=== PATIENT | female | born 1990 | race Caucasian/White ===

== ENCOUNTER 2024-01-01 08:49 | Emergency (ER) | payer MEDICAID, SELFPAY ==
[2024-01-01 09:02] VITALS: BP 154/102; PULSE 63; O2SAT 95; BMI 32.8
--- NOTE | 2024-01-01 09:09 | ED.NAVMDI1 ---
HPI - Nausea/Vomiting/Diarrhea General Chief complaint: Nausea/Vomiting/Diarrhea Stated complaint: VOMITING Time Seen by Provider: 01/01/24 08:52 Source: patient Mode of arrival: Wheelchair Limitations: no limitations History of Present Illness HPI Narrative: 33-year-old female presents for nausea and vomiting. This has been going on for few days. She was admitted to another hospital, [facility], and was discharged yesterday and diagnosed with cannabis hyperemesis syndrome. She does not believe it is due to marijuana. LMP was early December. No complaints of abdominal pain or fever or hematemesis. Related Data Home Medications ?Medication ?Instructions ?Recorded ?Confirmed albuterol sulfate 90 mcg/actuation 2 puff inhalation Q6H PRN 01/01/24 01/01/24 aerosol inhaler shortness of breath or wheezing aspirin 81 mg chewable tablet 81 mg PO DAILY 01/01/24 01/01/24 atogepant 60 mg tablet (Qulipta) 60 mg PO DAILY 01/01/24 01/01/24 baclofen 10 mg tablet 10 mg PO Q8H 01/01/24 01/01/24 buspirone 30 mg tablet 30 mg PO BID 01/01/24 01/01/24 cariprazine 1.5 mg capsule 3 mg PO Q24H 01/01/24 01/01/24 (Vraylar) cyanocobalamin (vitamin B-12) 1,000 mcg PO DAILY 01/01/24 01/01/24 1,000 mcg tablet dicyclomine 20 mg tablet 20 mg PO DAILY 01/01/24 01/01/24 escitalopram oxalate 10 mg tablet 10 mg PO DAILY 01/01/24 01/01/24 famotidine 20 mg tablet 20 mg PO Q12H 01/01/24 01/01/24 fenofibrate 150 mg capsule 145 mg PO DAILY 01/01/24 01/01/24 ferrous sulfate 325 mg (65 mg 325 mg PO DAILY 01/01/24 01/01/24 iron) tablet (FeroSul) flash glucose sensor (FreeStyle 01/01/24 01/01/24 Otoniel 2 Sensor kit) fluticasone propionate 44 2 puff inhalation TID 01/01/24 01/01/24 mcg/actuation HFA aerosol inhaler gabapentin 600 mg tablet 600 mg PO QID 01/01/24 01/01/24 lamotrigine 100 mg tablet 100 mg PO DAILY 01/01/24 01/01/24 lidocaine 5 % topical patch 1 patch transdermal ONCE 01/01/24 01/01/24 magnesium oxide 400 mg (241.3 mg 400 mg PO DAILY 01/01/24 01/01/24 magnesium) tablet metoclopramide HCl 5 mg tablet 5 mg PO QID 01/01/24 01/01/24 montelukast 10 mg tablet 10 mg PO .QHS 01/01/24 01/01/24 multivitamin with folic acid 400 1 tab PO QAM 01/01/24 01/01/24 mcg tablet (Daily-Brigette (with folic acid)) omeprazole 40 mg capsule,delayed 40 mg PO BIDWM 01/01/24 01/01/24 release prochlorperazine maleate 10 mg 10 mg PO Q6H PRN N/V 01/01/24 01/01/24 tablet scopolamine base 1 mg over 3 days 1 patch transdermal Q3D 01/01/24 01/01/24 transdermal patch (Transderm-Scop) tamsulosin 0.4 mg capsule 0.4 mg PO QAM 01/01/24 01/01/24 tirzepatide 7.5 mg/0.5 mL 7.5 mg subcut QWEEK 01/01/24 01/01/24 subcutaneous pen injector (Drakeunkayliro) Allergies Allergy/AdvReac Type Severity Reaction Status Date / Time amoxicillin Allergy Mild Anaphylaxis Verified 01/01/24 09:11 ibuprofen AdvReac Mild Vomiting Verified 01/01/24 09:02 Review of Systems ROS Narrative A ten point review of systems is negative except as noted above. Exam Narrative Exam Narrative: Nurses note and vital signs reviewed and patient is not hypoxic. General: The patient appears well and in no apparent distress. Patient is resting comfortably on cart. Skin: Warm, dry, no pallor noted. There is no rash noted. Head: Normocephalic, atraumatic Eye: Normal conjunctiva, no drainage Ears, Nose, Mouth, and Throat: oral mucosa is moist. Nares patent. Cardiovascular: Regular Rate and Rhythm Respiratory: Patient is in no distress, no accessory muscle use, lungs are clear to auscultation, no wheezing, rales or rhonchi Back: non-tender GI: Soft and nontender Musculoskeletal: The patient has no evidence of calf tenderness, no pitting edema, symmetrical pulses noted bilaterally Neurological: A&O, normal speech Psychiatric: Cooperative Constitutional Vital Signs, click to edit/add: Last Vital Signs Pulse 63 01/01/24 09:02 Resp 18 01/01/24 09:02 BP 154/102 H 01/01/24 09:02 Pulse Ox 95 01/01/24 09:02 O2 Del Method Room Air 01/01/24 09:02 Course Vital Signs Vital signs: Vital Signs Pulse Rate 63 01/01/24 09:02 Respiratory Rate 18 01/01/24 09:02 Blood Pressure 154/102 H 01/01/24 09:02 Pulse Oximetry 95 01/01/24 09:02 Oxygen Delivery Method Room Air 01/01/24 09:02 Pulse Rate 63 01/01/24 09:02 Respiratory Rate 18 01/01/24 09:02 Blood Pressure 154/102 H 01/01/24 09:02 Pulse Oximetry 95 01/01/24 09:02 Oxygen Delivery Method Room Air 01/01/24 09:02 MDM - Nausea/Vomiting/Diarrhea MDM Narrative Medical decision making narrative: Tests were ordered and she was ordered IV fluids and Zofran. She walked out without completing her treatment. Differential Diagnosis Differential diagnosis: Likely food poisoning, gastroenteritis, dehydration and other (Cannabinoid hyperemesis syndrome) Lab Data Attestation: I reviewed the patient's lab results. Labs: Lab Results 01/01/24 Range/Units 09:15 WBC 7.1 (4.0-11.0) 10^3/uL RBC 4.28 (4.20-5.40) 10^6/uL Hgb 13.0 (12.0-16.0) g/dL Hct 38.8 (36.0-48.0) % MCV 90.7 (81.0-99.0) fL MCH 30.4 (26.7-34.0) pg MCHC 33.5 (29.9-35.2) g/dL RDW 12.5 (11.0-15.0) % Plt Count 434 (150-450) 10^3/uL MPV 9.5 (9.5-13.5) fL Neut % (Auto) 68.2 (43.0-75.0) % Lymph % (Auto) 24.2 (20.5-60.0) % [place] % (Auto) 6.5 (1.7-12.0) % Eos % (Auto) 0.4 L (0.9-7.0) % Baso % (Auto) 0.4 (0.2-2.0) % Neut # (Auto) 4.8 (1.4-6.5) 10^3/uL Lymph # (Auto) 1.7 (1.2-3.8) 10^3/uL [place] # (Auto) 0.5 (0.3-0.8) 10^3/uL Eos # (Auto) 0.0 (0.0-0.7) 10^3/uL Baso # (Auto) 0.0 (0.0-0.1) 10^3/uL Abs Immat Gran (auto) 0.02 (0.00-0.03) 10^3/uL Imm/Tot Granulo (auto) 0.3 (0.0-0.5) % Sodium 138 (136-145) mmol/L Potassium 3.5 (3.5-5.1) mmol/L Chloride 101 (98-107) mmol/L Carbon Dioxide 24.9 (21.0-32.0) mmol/L Anion Gap 15.6 BUN 12.0 (7.0-18.0) mg/dL Creatinine 0.84 (0.55-1.02) mg/dL Est GFR ( Amer) >60 (>=60) Est GFR (Non-Af Amer) >60 (>=60) BUN/Creatinine Ratio 14.3 Glucose 147 H (74-106) mg/dL Calcium 9.5 (8.5-10.1) mg/dL Serum HCG, Qual Negative (NEGATIVE) Discharge Plan Discharge Stand Alone Forms: Portal Instructions Chief Complaint: Nausea/Vomiting/Diarrhea Clinical Impression: Nausea & vomiting, Left against medical advice Patient Disposition: Left Against Medical Advice Time of Disposition Decision: 10:24 Condition: Good Mode of Transportation: Private Vehicle Prescriptions / Home Meds: No Action albuterol sulfate 90 mcg/actuation HFA aerosol inhaler 2 puff INHALATION Q6H PRN (Reason: shortness of breath or wheezing) aspirin 81 mg tablet,chewable 81 mg PO DAILY baclofen 10 mg tablet 10 mg PO Q8H buspirone 30 mg tablet 30 mg PO BID Vraylar 1.5 mg capsule 3 mg PO Q24H cyanocobalamin (vitamin B-12) 1,000 mcg tablet 1,000 mcg PO DAILY dicyclomine 20 mg tablet 20 mg PO DAILY escitalopram oxalate 10 mg tablet 10 mg PO DAILY famotidine 20 mg tablet 20 mg PO Q12H fenofibrate 150 mg capsule 145 mg PO DAILY ferrous sulfate [FeroSul] 325 mg (65 mg iron) tablet 325 mg PO DAILY fluticasone propionate 44 mcg/actuation HFA aerosol inhaler 2 puff INHALATION TID (DME) FreeStyle Otoniel 2 Sensor Kit See Rx Instructions .ROUTE Rx Instructions: As directed gabapentin 600 mg tablet 600 mg PO QID magnesium oxide 400 mg (241.3 mg magnesium) tablet 400 mg PO DAILY Rx Instructions: 1 tab/morning metoclopramide HCl 5 mg tablet 5 mg PO QID lidocaine 5 % adhesive patch,medicated 1 patch transdermal ONCE Rx Instructions: 1 PATCH TO AFFECTED AREA Q24 Hours montelukast 10 mg tablet 10 mg PO .QHS lamotrigine 100 mg tablet 100 mg PO DAILY Mounjaro 7.5 mg/0.5 mL pen injector 7.5 mg subcut QWEEK omeprazole 40 mg capsule,delayed release(DR/EC) 40 mg PO BIDWM multivitamin with folic acid [Daily-Brigette (with folic acid)] 400 mcg tablet 1 tab PO QAM prochlorperazine maleate 10 mg tablet 10 mg PO Q6H PRN (Reason: N/V) Qulipta 60 mg tablet 60 mg PO DAILY scopolamine base [Transderm-Scop] 1 mg over 3 days patch 3 day 1 patch transdermal Q3D tamsulosin 0.4 mg capsule 0.4 mg PO QAM Print Language: Chinese Instructions: Acute Nausea and Vomiting (ED), Against Medical Advice (ED) Referrals: NAWAF MCKOY [Primary Care Provider] - 1 week
[2024-01-01 09:26] LABS: Basophils Percent Auto 0.4 % (0.2-2.0); Eosinophils Percent Auto 0.4 % (0.9-7.0); Hematocrit 38.8 % (36.0-48.0); Immature Granulocytes Abs Auto 0.02 10^3/uL (0.00-0.03); Immature Granulocytes Pct Auto 0.3 % (0.0-0.5); Lymphocytes Absolute Auto 1.7 10^3/uL (1.2-3.8); Lymphocytes Percent Auto 24.2 % (20.5-60.0); Mean Corpuscular HGB Conc 33.5 g/dL (29.9-35.2); Mean Corpuscular Hemoglobin 30.4 pg (26.7-34.0); Mean Corpuscular Volume 90.7 fL (81.0-99.0); Mean Platelet Volume 9.5 fL (9.5-13.5); Monocytes Absolute Auto 0.5 10^3/uL (0.3-0.8); Monocytes Percent Auto 6.5 % (1.7-12.0); Neutrophils Absolute Auto 4.8 10^3/uL (1.4-6.5); Neutrophils Percent Auto 68.2 % (43.0-75.0); Platelet Count 434 10^3/uL (150-450); Red Blood Count 4.28 10^6/uL (4.20-5.40); Red Cell Distribution Width 12.5 % (11.0-15.0); White Blood Count 7.1 10^3/uL (4.0-11.0)
[2024-01-01] MEDS: 0.9 % SODIUM CHLORIDE 1,000 ML 1000 ML IV (09:26)
[2024-01-01] MEDS: METOCLOPRAMIDE HCL 10 MG/2 ML VIAL IVP (09:27)
[2024-01-01] MEDS: ONDANSETRON PF 4 MG/2 ML VIAL IV (09:27)
[2024-01-01 09:37] LABS: Anion Gap 15.6; BUN Creatinine Ratio 14.3; Calcium 9.5 mg/dL (8.5-10.1); Carbon Dioxide 24.9 mmol/L (21.0-32.0); Chloride 101 mmol/L (98-107); Estimated GFR (African America >60 (>=60); Estimated GFR (Non-African Ame >60 (>=60); Glucose 147 mg/dL (74-106); Potassium 3.5 mmol/L (3.5-5.1); Sodium 138 mmol/L (136-145)
[2024-01-01 09:38] LABS: HCG Qualitative NEGATIVE (NEGATIVE); Internal Control Within Normal Limits
== END 2024-01-01 10:20 | disposition left against medical advice (07) ==
PROVIDERS: Emergency Provider Emergency Medicine
DX: R11.2 Nausea with vomiting, unspecified (principal); Z53.29 Procedure and treatment not carried out because of patient's decision for other reasons
CPT/HCPCS: 36415; 80048; 81001; 84703; 85025; 96361; 96374; 96375; 99284; J2405; J2765

== ENCOUNTER 2024-01-05 13:05 | Observation (INO) | payer MEDICAID, SELFPAY ==
[2024-01-05] VITALS (12 sets, daily range): BP systolic 140–159; BP diastolic 90–110; PULSE 75–111; TEMP 36.7–37.2; O2SAT 96–99; BMI 32.8; BMI 46.7
--- OUTSIDE RECORDS SUMMARY | 2024-01-05 13:14 | XMS_ITS | CCD ---
Author Organization [facility] Care Team Providers Care Tea Taster Name Role Phone ANNABELLE CLAIRE (PA) Unavailable Unavailable ANNABELLE CLAIRE (PA) Unavailable Unavailable KUENZLER MINNIE M Unavailable Unavailable ANNABELLE CLAIRE (PA) Unavailable Unavailable KUENZLER MINNIE M Unavailable Unavailable KUENZLER MINNIE M Unavailable Unavailable KUENZLER MINNIE M Unavailable Unavailable KUENZLER MINNIE M Unavailable Unavailable KUENZLER, MINNIE M Unavailable Unavailable EAN, NAWAF Primary Care Physician Saroj Nguyen Unavailable Te Shelton Unavailable Dereck Dempsey Unavailable ANGESME, NAWAF Primary Care Unavailable LYNDA, DR MEEKS Admitting Unavailable LYNDA, DR MEEKS Attending Unavailable LYNDA, DR MEEKS Consulting Unavailable EAN, NAWAF Primary Care Unavailable LYNDA, DR MEEKS Admitting Unavailable LYNDA, DR MEEKS Attending Unavailable ZIDANNA, DR MARILIA Payton Consulting Unavailable LYNDA, DR MEEKS Attending Unavailable ANGESME, NAWAF Primary Care Unavailable LYNDA, DR MEEKS Consulting Unavailable LYNDA, DR MEEKS Admitting Unavailable NARCISO, DR MARILIA Payton Consulting Unavailable ROSI, DR JENSEN Hale Attending Unavailabl lashonda ARANDA, DR JENSEN Hale Consulting Unavailabl e EAN, NAWAF Primary Care Unavailable ROSI, DR JENSEN Hale Admitting Unavailabl YANETH Perea Consulting Unavailable Lola Trevino Unavailable Unavailable Primary Care Provider UnavailAysha Trujillo CNP Attending Unavailable CARLITA RECINOS Primary Care Unavailable CARLITA SEGURA Attending Unavailable KAREN SPAULDING Attending Unavailable NO, PCP Primary Care Unavailable NO, PCP Primary Care Unavailable OMER ROBISON Attending Unavailable MD Constantino HOWELL Attending Unavailable MD Constantino HOWELL Attending Unavailable MD Constantino HOWELL Referring Unavailable MD Constantino HOWELL Attending Unavailable MD Constantino HOWELL Admitting Unavailable AnglimDILIA Primary Care Provider Willamcortez, [facility]- Cristel Ramírez Emergency Provider LUIS Hill Attending Provider Pratima Hill Unavailable Leatha Nicole Unavailable Jone Greenfield Unavailable DILIA Mckoy Primary Care Provider [phone] LUIS Hill Attending Provider DO Rainer Barrera Attending Provider NON STAFF Primary Care Provider UnavailRainer Rice Unavailable Furlong King CANTU Primary Care Provider Anglim, Nawaf Primary Care Unavailable Pratima Hill Attending Unavailable Pratima Hill Admitting Unavailable Anglim, Nawaf Primary Care Unavailable Pratima Hill Attending Unavailable Pratima Hill Admitting Unavailable Rainer Barrera Attending Unavailable Rainer Barrera Admitting Unavailable Anglim, Nawaf Primary Care Unavailable NON STAFF Primary Care Unavailable Rainer Barrera Attending Unavailable Rainer Barrera Admitting Unavailable FURLONGKING Referring Unavailable FURLONG, KING G Primary Care Unavailable FURLONG, KING Hale Referring Unavailable FURLONG, KING G Primary Care Unavailable ALMADANI, S. BASHAR Admitting Unavailable ALMADANI, S. BASHAR Attending Unavailable FURLONG, KING G Primary Care Unavailable JOAQUIN MURRAY Attending Unavailable FURLONG, KING G Primary Care Unavailable ALMADANI, S. BASHAR Attending Unavailable ALMADANI, S. BASHAR Referring Unavailable FURLONG, KING G Primary Care Unavailable ALMADANI, S. BASHAR Attending Unavailable ALMADANI, S. BASHAR Referring Unavailable FURLONG, KING G Primary Care Unavailable FURLONG, KING G Attending Unavailable FURLONG, KING G Referring Unavailable FURLONG, KING G Primary Care Unavailable FIORELLA SUMNER Attending Unavailable FURLONG, KING G Primary Care Unavailable RUBLAITUS, TIFFANIE Attending Unavailable FURLONG, KING G Referring Unavailable FURLONG, KING G Primary Care Unavailable TANIADAVE MARTINEZ Attending Unavailable FURLONG, KING G Referring Unavailable FURLONG, KING G Primary Care Unavailable RUBLAITUS, TIFFANIE Attending Unavailable FURLONG, KING G Referring Unavailable FURLONG, KING G Primary Care Unavailable TANIADAVE Attending Unavailable FURLONG, KING G Referring Unavailable FURLONG, KING G Primary Care Unavailable FURLONG, KING G Attending Unavailable FURLONG, KING G Referring Unavailable FURLONG, KING G Primary Care Unavailable ABBY BERG Attending Unavailable FURLONG, KING G Primary Care Unavailable MURFIORELLA CHIN Referring Unavailable FURLONG, KING G Primary Care Unavailable FURLONG, KING G Attending Unavailable FURLONG, KING G Referring Unavailable FURLONG, KING G Primary Care Unavailable RUSHER, JESU S Referring Unavailable RUSHER, JESU S Attending Unavailable RUSHER, JESU S Referring Unavailable RUSHER, JESU S Attending Unavailable HAYDEN KIRKPATRICK Attending Unavailable KIRKPATRICKHAYDEN AHUMADA Referring Unavailable KIRKPATRICK, HAYDEN Scott Attending Unavailable KIRKPATRICKHAYDEN Referring Unavailable NATALI ALEXANDRA Attending Unavailable RUSHER, JESU S Attending Unavailable RUSHER, JESU S Referring Unavailable FURLONG, KING G Primary Care Unavailable RUSHER, JESU S Referring Unavailable FURLONG, KING G Primary Care Unavailable RUBLAITUS, TIFFANIE Referring Unavailable FURLONG, KING G Primary Care Unavailable FURLONG, KING G Referring Unavailable FURLONG, KING G Primary Care Unavailable RUBLAITUS, TIFFANIE Referring Unavailable FURLONG, KING G Primary Care Unavailable FURLONG, KING G Referring Unavailable FURLONG, KING G Primary Care Unavailable FURLONG, KING G Primary Care Unavailable SUE SMITH Attending Unavailable SIMON MARIN Admitting Unavailable LATOSHA NICHOLAS Attending Unavailable LATOSHA NICHOLAS Referring Unavailable FURLONG, KING G Primary Care Unavailable FIORELLA SUMNER Referring Unavailable FURLONG, KING G Primary Care Unavailable FURLONG, KING G Primary Care Unavailable CIARA, EHLADAN Attending Unavailable FURLONG, KING G Referring Unavailable FURLONG, KING G Primary Care Unavailable JESU LEWIS Attending Unavailable FURLONG, KING G Referring Unavailable FURLONG, KING G Primary Care Unavailable FURLONG, KING G Primary Care Unavailable NATALI PACE Attending Unavailable GEORGIA EASTON Admitting Unavailable NATALI PACE Attending Unavailable NATALI PACE Referring Unavailable FURLONG, KING G Primary Care Unavailable FURLONG, KING G Primary Care Unavailable OLAYINKA HICKS Attending Unavailable FURLONG, KING G Primary Care Unavailable SUE SMITH Attending Unavailable MURNEN, FIORELLA Suero Attending Unavailable MURNEN, FIORELLA Suero Referring Unavailable FURLONG, KING G Primary Care Unavailable MURNEN, FIORELLA Suero Attending Unavailable MURNEN, FIORELLA A Referring Unavailable FURLONG, KING G Primary Care Unavailable MURNEN, FIORELLA Suero Attending Unavailable MURNEN, FIORELLA A Referring Unavailable FURLONG, KING G Primary Care Unavailable FURLONG, KING G Primary Care Unavailable OLAYINKA HICKS Attending Unavailable MANDO, LATOSHA Attending Unavailable LATOSHA NICHOLAS Referring Unavailable FURLONG, KING G Primary Care Unavailable FURLONG, KING G Primary Care Unavailable OLAYINKA HICKS Attending Unavailable SALOME BRADY Admitting Unavailable OLAYINKA HICKS Attending Unavailable OLAYINKA HICKS Referring Unavailable FURLONG, KING G Primary Care Unavailable Allergies Allergy Classification Reported Allergen(s) Allergy Type Date of Onset Reaction(s) Facility (20 sources) acetaminophen / HYDROcodone; Translations: [HYDROCODONE-ACET AMINOPHEN] Drug Allergy 07-27-19 16 Hives [facility] Repository (20 sources) amoxicillin; Translations: [AMOXICILLIN] Drug Allergy 11-17-19 13 Allergy - specialty (qualifier value), anaphylaxis [facility] Repository (20 sources) cefadroxil; Translations: [CEFADROXIL] Drug Allergy 10-13-19 17 AOF, Unknown, Unknown Reaction [facility] Repository (20 sources) calderón allergenic extract; Translations: [CALDERÓN] Drug Allergy 06-09-19 17 Anaphylaxis (disorder), Anaphylaxis [facility] Repository (1 source) HYDROmorphone; Translations: [HYDROMORPHONE (BULK)] Drug Allergy 03-15-20 17 AOF [facility] Repository (20 sources) ibuprofen; Translations: [IBUPROFEN] Drug Allergy 07-27-19 16 Vomiting (disorder), Hives, Vomiting [facility] Repository (20 sources) NSAIDs; Translations: [NSAIDS (NON-STEROIDAL ANTI-INFLAMMATORY DRUG)] Propensity to adverse reactions to drug (disorder) 10-13-19 17 AOF [facility] Repository (20 sources) Penicillins; Translations: [PENICILLINS] Propensity to adverse reactions to drug (disorder) 07-27-19 16 Weal (disorder), Anaphylaxis [facility] Repository (20 sources) strawberry allergenic extract; Translations: [STRAWBERRY] Drug Allergy 05-21-19 07 [facility] Repository (20 sources) PINK DYE; Translations: [PINK DYE] Propensity to adverse reactions to drug (disorder) 03-13-[address] [facility] Repository (5 sources) Acetaminophen / HYDROcodone; Translations: [acetaminophen-hy drocodone] Drug Allergy 03-15-20 17 Weal (disorder) [facility] (10 sources) HYDROcodone; Translations: [hydrocodone] Drug Allergy 06-03-19 20 Unknown, Hives, Unknown Reaction [facility] (20 sources) HYDROmorphone; Translations: [hydromorphone] Drug Allergy 07-27-19 16 [facility] [employer] Other (3 sources) NSAIDs; Translations: [NSAIDs] Drug allergy Weal (disorder) [facility] (3 sources) [place]; Translations: [Strawberries] Drug allergy Weal (disorder) [facility] (20 sources) Verapamil; Translations: [verapamil] Drug Allergy 11-09-19 19 shortness of breath, Dizziness [facility] [employer] Other (20 sources) Acetaminophen / HYDROcodone; Translations: [Vicodin] Drug Allergy 11-17-19 14 [facility] Repository (20 sources) pink dye in vicodin Propensity to adverse reactions 06-06-19 24 [facility] (20 sources) cherries Propensity to adverse reactions 06-06-19 24 Unknown [facility] (3 sources) HYDROmorphone; Translations: [Dilaudid] Drug Allergy 03-05-20 15 [facility] Repository (1 source) Ibuprofen Drug Allergy 11-17-19 13 [facility] Repository (1 source) Verapamil Drug Allergy [facility] Repository (1 source) Darvocet-N 100 Drug allergy (disorder) [facility] Repository (1 source) Calderón Cough Drops Drug allergy (disorder) 05-21-19 07 [facility] Repository (2 sources) Acetaminophen; Translations: [acetaminophen] Drug Allergy 06-03-19 [facility] Repository (7 sources) peanut allergenic extract Drug Allergy 07-05-[address] [facility] (7 sources) NSAIDS (Non-Steroidal Anti-Inflamma Allergy to substance 07-05-19 [facility] (7 sources) [place] Allergy to substance 07-05-[address] [facility] Medications Current Medications Medication Drug Class(es) Dates Sig (Normalized) Sig (Original) 0.5 ML tirzepatide 10 MG/ML Auto-Injector [Mounjaro] (1 source) Start: 03-27-2023 Mounjaro 5 MG/0.5ML as directed Subcutaneous Once weekly for 28 days Mar, Active acetaminophen 325 mg / oxyCODONE hydrochloride 5 mg oral tablet (13 sources) Opioid Agonist Start: 09-08-2022 take 1 tablet by mouth every six hours Oxycodone-Acetamino phen Active 1 TAB PO Q6H 8 September 08, 2022 Start: 04-22-2021 End: 05-25-2021 take 1 tablet by mouth every six hours Oxycodone-Acetaminophen (Percocet) 5-325 mg tablet Discontinued 1 TAB PO Q6H 8 April 22, 2021 May 25, 2021 10:35am Albuterol (Eqv-ProAir HFA) 90 mcg/inh inhalation aerosol (2 sources) Start: 07-15-2020 take 2 puff(s) by inhalation every four hours as needed for wheezing Albuterol (Eqv-ProAir HFA) 90 mcg/inh inhalation aerosol 2 puff(s), Inhalation, q4hr as needed for wheezing, Refill(s) 0 Start Date: 07/15/20 Status: Ordered ascorbic acid 250 mg oral tablet (20 sources) Vitamin C Start: 07-15-2020 take 1 tablet by mouth twice daily Vitamin C 250 mg oral tablet 250 mg = 1 tab(s), Oral, BID, Refills(s) 0 Start Date: 07/15/20 Status: Ordered Start: 05-10-2020 Ascorbic Acid (Vitamin C) (Vitamin C) 500 mg Tablet Active 250 MG PO Twice daily May 10, 2020 1:00am Start: 04-16-2020 End: 05-10-2020 take 1 tablet by mouth twice daily Ascorbic Acid (Vitamin C) (Vitamin C) 250 mg Tablet Discontinued 250 MG PO Twice daily April 16, 2020 1:00am May 10, 2020 11:06am take 1 tablet by elvira every twenty-four hours Vitamin C 250 MG 1 tablet Orally Once a day Active benzonatate (3 sources) Non-narcotic Antitussive Start: 11-24-2020 Start: 11-24-2020 take 1 capsule by mo [facility] three times daily as needed Tessalon Perles 100 MG 1 capsule as needed Orally Three times a day for 7 days Nov, Active brompheniramine maleate 0.4 mg/ml / dextromethorphan hydrobromide 2 mg/ml / pseudoephedrine hydrochloride 6 mg/ml oral solution (5 sources) alpha-Adrenergic Agonist, Uncompetitive O-ehtqui-Y-aspartate Receptor Antagonist, Sigma-1 Agonist Start: 08-15-2022 take 10 mL by mouth every six hours Cqrcdixeg-Xtqgxfwv-BM 30-2-10 MG/5ML 10 mL Orally every 6 hours for 5 days Jul, Active Start: 08-15-2022 ciprofloxacin 500 mg oral tablet (1 source) Quinolone Antimicrobial Start: 06-26-2023 End: 07-03-2023 take 1 tablet by mouth in the morning, then take 1 tablet by mouth at bedtime ciprofloxacin HCl (CIPRO) 500 mg tablet Take 1 tablet (500 mg total) by mouth in the morning and 1 tablet (500 mg total) before bedtime. Do all this for 7 days. 14 tablet 0 06/26/2023 07/03/2023 Active clindamycin 10 mg/ml topical lotion (7 sources) Lincosamide Antibacterial Start: 05-09-2023 clindamycin (CLEOCIN T) 1 % lotion dexamethasone 1 mg/ml / neomycin 3.5 mg/ml / polymyxin b [id number] unt/ml ophthalmic suspension (7 sources) Aminoglycoside Antibacterial, Polymyxin-class Antibacterial, Corticosteroid Start: 05-26-2021 take 1 drop(s) into the eye(s) four times daily Neomycin-Polymyxin B-Dexameth Active 1 DROPS EYE-LEFT Four times daily May 26, 2021 1:00am trulicity 3 mg/0.5ml solution pen-injector (3 sources) GLP-1 Receptor Agonist Trulicity 3 MG/0.5ML 3 mg subcutaneous injection once weekly Subcutaneous Once a week for 30 days Active fenofibrate 145 mg oral tablet (20 sources) Peroxisome Proliferator Receptor alpha Agonist Start: 05-28-2021 take 145 mg by mouth once daily Fenofibrate Nanocrystallized Active 145 MG PO Daily May 28, 2021 1:00am flash glucose sensor (FREESTYLE MAKSIM 2 SENSOR) kit (17 sources) Start: 06-08-2023 flash glucose sensor (FREESTYLE MAKSIM 2 SENSOR) kit Indications: Type 2 diabetes mellitus with diabetic polyneuropathy, with long-term current use of insulin ([facility]) 1 Unit by miscellaneous route every 14 (fourteen) days. 2 kit 5 06/08/2023 Suspended Start: 06-08-2023 flash glucose sensor (FREESTYLE MAKSIM 2 SENSOR) kit Indications: Type 2 diabetes mellitus with diabetic polyneuropathy, with long-term current use of insulin ([facility]) 1 Unit by miscellaneous route every 14 (fourteen) days. 2 kit 5 06/08/2023 Active FreeStyle Maksim 2 Triplett - (14 sources) Start: 01-18-2022 FreeStyle Libr e 2 Triplett - 1 device daily for 365 days Dec, Active FreeStyle Maksim 2 Triplett - USE TO TEST BLOOD SUGAR DAILY for 30 Not-Taking/PRN FreeStyle Maksim 2 Triplett - USE TO TEST BLOOD SUGAR DAILY for 30 Not-Taking FreeStyle Maksim 2 Triplett - USE TO TEST BLOOD SUGAR DAILY for 30 Active linagliptin 5 mg oral tablet (9 sources) Dipeptidyl Peptidase 4 Inhibitor Start: 05-28-2021 take 1 tablet by mouth once daily at breakfast Linagliptin (Tradjenta) 5 mg Tablet Active 5 MG PO Daily with breakfast May 28, 2021 1:00am 3 ml liraglutide 6 mg/ml pen injector (10 sources) GLP-1 Receptor Agonist inject 1.8 mg by subcutaneous injection once daily Victoza 18 MG/3ML 1.8 mg SQ daily for 28 days Active methocarbamol 750 mg oral tablet (2 sources) Muscle Relaxant Start: 04-20-2021 take 1 mg by mouth three times daily methocarbamol 750 mg Tab mg tab(s), Oral, TID, Refills(s) 0 Start Date: 04/20/21 Status: Ordered metroNIDAZOLE 500 mg oral tablet (1 source) Nitroimidazole Antimicrobial Start: 06-26-2023 End: 07-03-2023 take 1 tablet by mouth in the morning, then take 1 tablet by mouth at bedtime metroNIDAZOLE (FLAGYL) 500 mg tablet Take 1 tablet (500 mg total) by mouth in the morning and 1 tablet (500 mg total) before bedtime. Do all this for 7 days. 14 tablet 0 06/26/2023 07/03/2023 Active mirtazapine 7.5 mg oral tablet (11 sources) take 1 tablet by mouth every twenty-four hours Mirtazapine 7.5 MG 1 tablet at bedtime Orally Once a day Active mometasone furoate 0.05 mg/actuat metered dose nasal spray (1 source) Corticosteroid Start: 07-15-2020 Nasonex 50 mcg/inh Wiley = 2 spray(s), Nasal, Daily, PRN for allergy symptoms, # 17 gram, Refills(s) 0 Start Date: 07/15/20 Status: Ordered mounjaro 5 mg/0.5ml solution pen-injector (2 sources) inject 5 mg by subcutaneous injection every week Mounjaro 5 MG/0.5ML 5 mg Subcutaneous Once weekly for 28 days Active Mounjaro 5 MG/0. 5ML as directed Subcutaneous Once weekly for 28 days Active Multivitamin preparation (4 sources) take 1 tablet by mouth once daily Multivitamin - 1 tablet Orally Once a day Active Nasonex 50 mcg/inh Wiley (1 source) Start: Nasonex 50 mcg/inh Wiley = 2 spray(s), Nasal, Daily, PRN for allergy symptoms, # 17 gram, Refills(s) 0 Start Date: 07/15/20 Status: Ordered nitrofurantoin, macrocrystals 25 mg / nitrofurantoin, monohydrate 75 mg oral capsule (7 sources) Nitrofuran Antibacterial Start: take 1 capsule by mouth twice daily at mealtime Nitrofurantoin Monohyd/M-Cryst (Macrobid) 100 mg capsule Active 100 MG PO Twice daily 14 July 05, 2021 1:00am must administer with a meal/food [place]-3 1000 mg oral capsule (2 sources) Start: take 1 capsule by mouth once daily [place]-3 1000 mg oral capsule mg cap(s), Oral, Daily, Refills(s) 0 Start Date: 04/20/21 Status: Ordered microencapsulated potassium chloride 20 meq extended release oral tablet (1 source) Start: End: take 1 tablet by mouth in the morning potassium chloride (KLOR-CON M 20) 20 MEQ CR tablet Take 1 tablet (20 mEq total) by mouth in the morning for 7 days. 7 tablet 0 06/26/2023 07/03/2023 Active rOPINIRole 0.5 mg oral tablet (20 sources) Nonergot Dopamine Agonist Start: take 0.5 mg by mouth once daily at bedtime Ropinirole Active 0.5 MG PO Daily at bedtime May 28, 2021 1:00am 0.25 mg, 0.5 mg dose 1.5 ml semaglutide 1.34 mg/ml pen injector (1 source) Start: Ozempic (0.25 or 0.5 MG/DOSE) 2 MG/1.5ML 0.25 mg for one month and then increase to 0.5 mg dose Subcutaneous weekly for 30 days Nov, Active sulfamethoxazole 800 mg / trimethoprim 160 mg oral tablet (8 sources) Dihydrofolate Reductase Inhibitor Antibacterial, Sulfonamide Antimicrobial Start: End: take 1 tablet by mouth twice daily sulfamethoxazole-tri methoprim (BACTRIM DS) 800-160 MG per tablet Take 1 tablet by mouth 2 times daily for 7 days 14 tablet 0 03/14/2022 03/21/2022 Active Start: 10-01-2019 End: 04-16-2020 take 1 tablet by mouth twice daily Sulfamethoxazole-Trimethoprim Discontinu ed 1 TAB PO Twice daily 14 October 01, 2019 12:00am April 16, 2020 6:07pm tamsulosin hydrochloride 0.4 mg oral capsule (20 sources) alpha-Adrenergic Lashonda Start: 05-10-2020 take 0.4 mg by mouth once daily Tamsulosin Active 0.4 MG PO Daily May 10, 2020 1:00am tirzepatide (MOUNJARO) 7.5 mg/0.5 mL pen injector (6 sources) Start: 07-24-2023 tirzepatide (MOUNJARO) 7.5 mg/0.5 mL pen injector Indications: Type 2 diabetes mellitus with diabetic polyneuropathy, with long-term current use of insulin ([facility]) Inject 7.5 mg under the skin every 7 days. 2 mL 1 07/24/2023 Suspended Start: 07-24-2023 tirzepatide (M OUNJARO) 7.5 mg/0.5 mL pen injector Indications: Type 2 diabetes mellitus with diabetic polyneuropathy, with long-term current use of insulin ([facility]) Inject 7.5 mg under the skin every 7 days. 2 mL 1 07/24/2023 Active traMADol hydrochloride 50 mg oral tablet (9 sources) Opioid Agonist Start: 07-05-2021 take 50 mg by mouth twice daily Tramadol Active 50 MG PO Twice daily 6 July 05, 2021 1:00am Start: 04-27-2021 Start: 04-27-2021 take 1 tablet by elvira th every four to six hours as needed traMADol HCl 50 MG 1 tablet as needed Orally q4-6h for 10 days Apr, Active traZODone hydrochloride 50 mg oral tablet (20 sources) Serotonin Reuptake Inhibitor Start: 05-28-2021 take 50 mg by mouth once daily at bedtime Trazodone Active 50 MG PO Daily at bedtime May 28, 2021 1:00am valACYclovir 1000 mg oral tablet (4 sources) Herpesvirus Nucleoside Analog DNA Polymerase Inhibitor, Herpes Simplex Virus Nucleoside Analog DNA Polymerase Inhibitor, Herpes Zoster Virus Nucleoside Analog DNA Polymerase Inhibitor Start: 10-18-2022 take 1 tablet by mouth every eight hours valACYclovir HCl 1 GM 1 tablet Orally tid for 7 days September, Active Vitamin B-12 ER 1000 MCG (13 sources) take 1 tablet by mouth once marta y Vitamin B-12 ER 1000 MCG 1 tablet Orally Once a day Active Vitamin B12 1000 mcg Tab (2 sources) Start: 07-15-2020 take 1 ug by mouth once daily Vitamin B12 1000 mcg Tab mcg tab(s), Oral, Daily, Refills(s) 0 Start Date: 07/15/20 Status: Ordered Vitamin C 250 MG (5 sources) take 1 tablet by mouth once marta y Vitamin C 250 MG 1 tablet Orally Once a day Active Vitamin C 250 mg oral tablet (1 source) Start: 07-15-2020 take 1 tablet by mouth twice daily Vitamin C 250 mg oral tablet 250 mg = 1 tab(s), Oral, BID, Refills(s) 0 Start Date: 07/15/20 Status: Ordered Completed/Discontinued Medications Medication Drug Class(es) Dates Sig (Normalized) Sig (Original) acetaminophen 500 mg oral tablet (20 sources) Start: 01-06-2023 End: 06-19-2023 take 1 tablet by mouth every six hours as needed for pain acetaminophen (TYLENOL EXTRA STRENGTH) 500 mg tablet Take 1 tablet (500 mg total) by mouth every 6 (six) hours as needed for pain. 60 tablet 3 06/19/2023 Suspended Start: 03-14-2022 acetaminophen (TYLENOL) tablet 650 mg Start: 05-25-2021 take 500 mg by mouth three times daily Acetaminophen Active 500 MG PO Three times daily May 25, 2021 10:34am Start: 07-15-2020 take 1 tablet by elvira th every six hours as needed for pain acetaminophen (TYLENOL) 500 MG tablet Take 1 tablet by mouth every 6 hours as needed for Pain 40 tablet 0 03/05/2022 Active Start: 05-10-2020 End: 05-25-2021 take 500 mg by mouth every four hours Acetaminophen Discontinued 500 MG PO Every 4 hours May 10, 2020 1:00am May 25, 2021 10:34am Start: 04-23-2020 End: 05-10-2020 take 650 mg by mouth every four hours Acetaminophen Discontinued 650 MG PO Q4H April 23, 2020 1:00am May 10, 2020 11:06am Start: 10-01-2019 End: 04-23-2020 take 500 mg by mouth every four hours Acetaminophen Discontinued 500 MG PO Q4H 180 30 October 01, 2019 12:00am April 23, 2020 4:58pm Start: 09-23-2019 End: 10-01-2019 take 1000 mg by mouth every eight hours Acetaminophen Discontinued 1000 MG PO Every 8 hours September 23, 2019 12:00am October 01, 2019 12:17pm take 1 capsule by [facility] every eight hours Acetaminophen 500 MG 1 capsule Orally tid Active take 1 tablet by elvira every four hours Tylenol 325 MG 1 tablet as needed Orally every 4 hrs Not-Taking take 1 capsule by mo [facility] every six hours Acetaminophen 500 MG 1 capsule as needed Orally every 6 hrs Active [id number] actuat albuterol 0.09 mg/actuat metered dose inhaler (20 sources) beta2-Adrenergic Agonist Start: 06-18-2023 take 2 puff(s) by inhalation every six hours as needed for wheezing albuterol (PROVENTIL HFA;VENTOLIN HFA) 90 mcg/actuation inhaler Indications: Asthma, unspecified asthma severity, unspecified whether complicated, unspecified whether persistent Inhale 2 puffs every 6 (six) hours as needed for wheezing. 18 g 1 06/18/2023 Suspended Start: 11-24-2020 take 2 puff(s) by in halation every four to six hours as needed Albuterol Sulfate HFA 108 (90 Base) MCG/ACT 2 puffs as needed Inhalation every 4-6 hours for 14 days Nov, Active Start: 11-24-2020 take 2 puff(s) by in halation every four to six hours as needed Albuterol Sulfate HFA 108 (90 Base) MCG/ACT 2 puffs as needed Inhalation every 4-6 hours for 14 days Nov, Active Start: 11-24-2020 take 2 puff(s) by in halation every four to six hours as needed Albuterol Sulfate HFA 108 (90 Base) MCG/ACT 2 puffs as needed Inhalation every 4-6 hours for 14 days Nov, Active Start: 11-24-2020 Start: 08-31-2020 take 2.5 mg by inhal ation every six hours for wheezing albuterol 0.083% Inh Marjan 3 mL 2.5 mg, 3 mL, Inhalation, q6hr for wheezing, Refill(s) 0 Start Date: 08/31/20 Status: Ordered Start: 08-31-2020 take 2.5 mg by inhal ation every six hours for wheezing albuterol 0.083% Inh Marjan 3 mL 2.5 mg, 3 mL, Inhalation, q6hr for wheezing, Refill(s) 0 Start Date: 08/31/20 Status: Ordered Start: 04-18-2017 End: 05-10-2020 Albuterol Sulfate (Proair Hf a) 90 mcg/actuation Hfa Aerosol Inhaler Discontinued 2 INH INHALATION Every 4 hours 30 October 01, 2019 12:14pm May 10, 2020 11:06am take 2 puff(s) by in halation every six hours as needed for wheezing albuterol (PROVENTIL HFA;VENTOLIN HFA) 90 mcg/actuation inhaler Inhale 2 puffs every 6 (six) hours as needed for wheezing. 0 Active Albuterol Sulfat e Active ARIPiprazole 2 mg oral tablet (4 sources) Atypical Antipsychotic Start: 08-20-2023 take 1 tablet by mouth in the morning ARIPiprazole (ABILIFY) 2 mg tablet Take 1 tablet (2 mg total) by mouth in the morning. 30 tablet 0 08/20/2023 Suspended Start: 07-31-2023 End: 08-08-2023 take 1 tablet by mouth in the morning ARIPiprazole (ABILIFY) 2 mg tablet Take 1 tablet (2 mg total) by mouth in the morning. 30 tablet 2 07/31/2023 08/08/2023 Discontinued (Therapy completed) aspirin 81 mg chewable tablet (18 sources) Platelet Aggregation Inhibitor, Nonsteroidal Anti-inflammatory Drug Start: 04-27-2021 aspirin 81 mg chewable tablet Chew 1 tablet (81 mg total) and swallow daily. 20 tablet 0 04/27/2021 Suspended baclofen 10 mg oral tablet (20 sources) gamma-Aminobutyric Acid-ergic Agonist Start: 12-13-2021 take 1 tablet by mouth three times daily baclofen (LIORESAL) 10 mg tablet Indications: Fibromyalgia Take 1 tablet (10 mg total) by mouth 3 (three) times a day. 90 tablet 2 06/18/2023 Suspended Start: 05-25-2021 take 5 mg by mouth t hree times daily Baclofen Active 5 MG PO Three times daily May 25, 2021 1:00am benzocaine 15 mg / menthol 3.6 mg oral lozenge (10 sources) Standardized Chemical Allergen Start: 06-30-2023 benzocaine-menthoL (CEPACOL SORE THROAT) 15-3.6 mg lozenge Dissolve 1 lozenge in the mouth every 2 (two) hours as needed (sore throat). 18 lozenge 0 06/30/2023 Suspended busPIRone hydrochloride 30 mg oral tablet (20 sources) Start: 06-08-2023 take 0.999 tablet by mouth in the morning, then take 0.999 tablet by mouth at bedtime busPIRone (BUSPAR) 30 mg tablet Take 0.999 tablets (30 mg total) by mouth in the morning and 0.999 tablets (30 mg total) before bedtime. 60 tablet 5 06/08/2023 Suspended Start: 12-01-2021 End: 06-08-2023 take 1 tablet by mouth in the morning, then take 1 tablet by mouth at bedtime busPIRone (BUSPAR) 30 mg tablet Take 1 tablet (30 mg total) by mouth in the morning and 1 tablet (30 mg total) before bedtime. 0 12/01/2021 06/08/2023 Discontinued (Reorder) Start: 09-23-2019 End: 04-16-2020 take 10 mg by mouth twice daily Buspirone Discontinued 10 MG PO Twice daily 60 30 October 01, 2019 12:00am April 16, 2020 6:04pm take 1 tablet by elvira th every twelve hours busPIRone HCl 15 MG 1 tablet Orally Twice a day Active cariprazine 1.5 mg oral capsule (5 sources) Atypical Antipsychotic Start: 07-24-2023 End: 08-20-2023 take 1 capsule by mouth in the morning cariprazine (VRAYLAR) 1.5 mg capsule Take 1 capsule (1.5 mg total) by mouth in the morning. 30 capsule 1 07/24/2023 08/20/2023 Discontinued (Formulary change) cetirizine hydrochloride 10 mg oral tablet (20 sources) Histamine-1 Receptor Antagonist Start: 08-03-2020 take 1 tablet by mouth in the morning cetirizine (ZyrTEC) 10 mg tablet Indications: Chronic maxillary sinusitis Take 1 tablet (10 mg total) by mouth in the morning. 30 tablet 5 06/18/2023 Suspended End: 06-08-2023 cetirizine (Children's ZyrTE C Allergy) 10 mg tablet,disintegrating Dissolve 2 capsules on tongue. 0 06/08/2023 Discontinued (Therapy completed) cyclobenzaprine hydrochloride 10 mg oral tablet (20 sources) Muscle Relaxant Start: 09-03-2020 End: 05-25-2021 Cyclobenzaprine Discontinued 10 MG PO As Directed September 03, 2020 12:00am May 25, 2021 10:32am Start: 06-03-2019 End: 04-16-2020 take 10 mg by mouth three times daily Cyclobenzaprine Discontinued 10 MG PO Three times daily October 01, 2019 12:00am April 16, 2020 6:04pm Dexamethasone (20 sources) Corticosteroid Start: 07-04-2018 Start: 07-04-2018 DEXAMETHASONE Jun, 12 mg Start: 05-02-2018 Start: 05-02-2018 DEXAMETHASONE Apr, 12 mg diazePAM 5 mg oral tablet (20 sources) Benzodiazepine Start: 04-23-2020 End: 09-03-2020 take 5 mg by mouth four times daily Diazepam Discontinued 5 MG PO Four times daily 07 10May 10, 2020 1:00am September 03, 2020 3:53pm Start: 09-25-2019 End: 10-01-2019 take 5 mg by mouth four times daily Diazepam Discontinued 5 MG PO Four times daily September 25, 2019 12:00am October 01, 2019 12:17pm dicyclomine hydrochloride 20 mg oral tablet (12 sources) Anticholinergic Start: 06-26-2023 End: 08-08-2023 take 1 tablet by mouth every six hours as needed dicyclomine (BENTYL) 20 mg tablet Indications: Generalized abdominal pain , Diarrhea, unspecified type Take 1 tablet (20 mg total) by mouth every 6 (six) hours as needed (abdominal cramping). 120 tablet 2 08/08/2023 Suspended 1 ml diphenhydrAMINE hydrochloride 50 mg/ml cartridge (8 sources) Histamine-1 Receptor Antagonist Start: 03-14-2022 End: 03-14-2022 diphenhydrAMINE (BENADRYL) injection 25 mg Start: 04-18-2017 End: 06-03-2019 take 1 tablet by mouth twice daily Diphenhydramine Hcl (Benadryl) 25 mg Capsule Discontinued 1 TAB PO Twice daily April 18, 2017 1:00am June 03, 2019 5:55pm docusate sodium 100 mg oral capsule (7 sources) Start: 04-26-2017 End: 06-03-2019 take 100 mg by mouth twice daily Docusate Sodium Discontinued 100 MG PO Twice daily April 26, 2017 1:00am June 03, 2019 5:55pm docusate sodium 50 mg / sennosides, mcfp 8.6 mg oral tablet (14 sources) Start: 09-25-2019 End: 05-10-2020 take 2 tablets by mouth twice daily Sennosides-Docusate Sodium Discontinued 2 TAB PO Twice daily 120 October 01, 2019 12:00am May 10, 2020 11:06am doxycycline hyclate 100 mg oral capsule (2 sources) Tetracycline-cla ss Drug Start: 04-21-2021 take 1 capsule by mouth once daily doxycycline hyclate 100 mg Cap 100 mg = 1 cap(s), Oral, Daily, Take 1 pill the day before the procedure and 1 pill after the procedure, # 2 cap(s), Refills(s) 0, Pharmacy: [facility] [id number], 180, cm, 04/20/21 10:43:00 EST, Height/Length Dosing, 132, kg, 04/20/21 10:43:00 EST, Fredrick... Start Date: 04/21/21 Status: Ordered escitalopram 10 mg oral tablet (20 sources) Serotonin Reuptake Inhibitor Start: 06-11-2023 take 1 tablet by mouth in the morning escitalopram (LEXAPRO) 10 mg tablet Take 1 tablet (10 mg total) by mouth in the morning. 90 tablet 1 06/11/2023 Suspended Start: 12-01-2021 take 1 tablet by elvira th in the morning escitalopram (LEXAPRO) 10 mg tablet Take 1 tablet (10 mg total) by mouth in the morning. 0 12/01/2021 Active Start: 05-28-2021 take 5 mg by mouth o nce daily in the morning Escitalopram Oxalate Active 5 MG PO Every morning 15 May 28, 2021 1:00am Norgestimate-Ethinyl Estradiol (7 sources) Progestin, Estrogen Start: 04-18-2017 End: 08-20-2017 take 1 tablet by mouth at bedtime Norgestimate-Ethinyl Estradiol Discontinued 1 TAB PO Bedtime April 18, 2017 1:00am August 20, 2017 8:46am famotidine 20 mg oral tablet (12 sources) Histamine-2 Receptor Antagonist Start: 06-30-2023 End: 08-08-2023 take 1 tablet by mouth in the morning, then take 1 tablet by mouth at bedtime famotidine (PEPCID) 20 mg tablet Indications: Nausea and vomiting, unspecified vomiting type , Generalized abdominal pain , Chronic GERD , Duodenitis Take 1 tablet (20 mg total) by mouth in the morning and 1 tablet (20 mg total) before bedtime. 60 tablet 5 08/08/2023 Suspended ferrous sulfate 325 mg oral tablet (20 sources) Start: 06-18-2023 take 1 tablet by mouth once daily at breakfast ferrous sulfate 325 (65 FE) mg tablet Indications: Anemia, unspecified type Take 1 tablet (325 mg total) by mouth daily with breakfast. 30 tablet 2 06/18/2023 Suspended Start: 05-10-2020 take 324 mg by mouth once marta y Ferrous Sulfate Active 324 MG PO Daily May 10, 2020 1:00am Start: 04-16-2020 End: 05-10-2020 take 325 mg by mouth twice daily Ferrous Sulfate Discontinued 325 MG PO Twice daily April 16, 2020 1:00am May 10, 2020 11:06am take 1 tablet by elvira once daily Ferrous Sulfate 325 (65 Fe) MG 1 tablet Orally Once a day Active 120 actuat fluticasone propionate 0.044 mg/actuat metered dose inhaler (20 sources) Corticosteroid Start: 07-16-2023 take 2 puff(s) by mouth twice daily fluticasone propionate (FLOVENT HFA) 44 mcg/actuation inhaler Indications: Asthma, unspecified asthma severity, unspecified whether complicated, unspecified whether persistent 2 puffs BID. Rinse mouth out after use 10.6 g 5 07/16/2023 Suspended Start: 06-18-2023 End: 07-24-2023 take 1 spray(s) nasal route twice daily fluticasone propionate (FLONASE) 50 mcg/actuation nasal spray Indications: Cigarette smoker INSTILL ONE (1) SPRAY IN EACH NOSTRIL TWICE DAILY 16 g 5 06/18/2023 07/24/2023 Discontinued Start: 04-26-2023 take 2 puff(s) by mo uth twice daily FLOVENT HFA 44 mcg/actuation inhaler Indications: Asthma, unspecified asthma severity, unspecified whether complicated, unspecified whether persistent 2 puffs BID. Rinse mouth out after use 10.6 g 5 06/18/2023 Active Start: 04-26-2023 take 1 spray(s) nasa l route twice daily fluticasone propionate (FLONASE) 50 mcg/actuation nasal spray INSTILL ONE (1) SPRAY IN EACH NOSTRIL TWICE DAILY 0 04/26/2023 Active Start: 11-24-2020 take 2 spray(s) nasa l route twice daily Flonase Allergy Relief 50 MCG/ACT 2 spray in each nostril Nasally bid for 14 day(s) Nov, Active Start: 11-24-2020 take 2 spray(s) nasa l route twice daily Flonase Allergy Relief 50 MCG/ACT 2 spray in each nostril Nasally bid for 14 day(s) Nov, Active Start: 11-24-2020 Start: 11-24-2020 take 1 spray(s) nasa l route once daily Flonase Allergy Relief 50 MCG/ACT 1 spray in each nostril Nasally Once a day for 14 day(s) Nov, Active Start: 07-15-2020 take 2 puff(s) by in halation twice daily Flovent HFA 44 Aerosol = 2 puff(s), Inhalation, BID, # 10.6 gram, Refills(s) 0 Start Date: 07/15/20 Status: Ordered Start: 07-15-2020 take 2 puff(s) by in halation twice daily Flovent HFA 44 Aerosol = 2 puff(s), Inhalation, BID, # 10.6 gram, Refills(s) 0 Start Date: 07/15/20 Status: Ordered Start: 04-16-2020 End: 05-10-2020 take 1 puff(s) by inhalation twice daily Fluticasone Propionate (Flovent Hfa) 44 mcg/actuation Hfa Aerosol Inhaler Active 2 PUFF INHALATION Twice daily May 10, 2020 1:00am Start: 04-18-2017 End: 10-01-2019 Fluticasone Propionate Disco ntinued 1 SPRAY INTRANASAL Twice daily April 18, 2017 1:00am October 01, 2019 12:17pm take 2 puff(s) by in halation twice daily Flovent HFA 110 MCG/ACT 2 puffs Inhalation Twice a day Active FreeStyle Maksim 2 Sensor - (14 sources) Start: 01-18-2022 FreeStyle Libr e 2 Sensor - 1 sensor SQ Every 14 days for 28 days Dec, Not-Taking/PRN Start: 01-18-2022 FreeStyle Libr e 2 Sensor - 1 sensor SQ Every 14 days for 28 days Dec, Not-Taking Start: 01-18-2022 Start: 01-18-2022 FreeStyle Libr e 2 Sensor - 1 sensor SQ Every 14 days for 28 days Dec, Active gabapentin 600 mg oral tablet (20 sources) Anti-epileptic Agent Start: 05-28-2021 take 1 tablet by mouth three times daily gabapentin (NEURONTIN) 600 mg tablet Indications: Neuropathy , Back pain, lumbosacral , Diabetic polyneuropathy associated with type 2 diabetes mellitus (CMS-HCC) , Chronic migraine w/o aura, not intractable, w stat migr Take 1 tablet (600 mg total) by mouth 3 (three) times a day. 90 tablet 5 02/23/2023 Suspended Start: 04-20-2021 take 1 mg by mouth t hree times daily gabapentin 800 mg Tab mg tab(s), Oral, TID, Refills(s) 0 Start Date: 04/20/21 Status: Ordered Start: 09-03-2020 End: 05-28-2021 take 1200 mg by mouth three times daily Gabapentin Discontinued 1200 MG PO Three times daily September 03, 2020 12:00am May 28, 2021 11:32am Start: 04-26-2017 End: 06-03-2019 take 600 mg by mouth three times daily Gabapentin Discontinued 600 MG PO Three times daily April 26, 2017 1:00am June 03, 2019 5:55pm Start: 04-18-2017 End: 04-26-2017 take 300 mg by mouth three times daily Gabapentin Discontinued 300 MG PO Three times daily April 18, 2017 1:00am April 26, 2017 10:49am 12 hr guaiFENesin 600 mg extended release oral tablet (7 sources) Start: 04-26-2017 End: 08-20-2017 take 1 tablet by mouth twice daily, then take 1 tablet by mouth every twelve hours Guaifenesin (Mucinex) 600 mg Tablet Extended Release 12hr Discontinued 600 MG PO Twice daily April 26, 2017 1:00am August 20, 2017 8:45am hydrOXYzine pamoate 50 mg oral capsule (20 sources) Antihistamine Start: 12-01-2021 End: 07-09-2023 take 1 capsule by mouth twice daily as needed hydrOXYzine (VISTARIL) 50 mg capsule TAKE ONE (1) CAPSULE BY MOUTH TWICE DAILY NEEDED FOR PANIC 0 12/01/2021 07/09/2023 Discontinued (Therapy completed) Start: 04-26-2017 End: 08-20-2017 take 50 mg by mouth three times daily Hydroxyzine Pamoate Discontinued 50 MG PO Three times daily April 26, 2017 1:00am August 20, 2017 8:45am 3 ml insulin aspart, human 100 unt/ml pen injector (17 sources) Insulin Analog Start: 06-06-2023 insulin aspart U-100 (NovoLOG) 100 unit/mL (3 mL) insulin pen Check blood sugar 4 times per day 70-149 mg/dL=0 units. 150-199 mg/dL=2 units. 200-249 mg/dL=4 units. 250-299 mg/dL=6 units. 300-349 mg/dL=8 units. 350-400 mg/dL=10 units. Max 40 units per day 15 mL 0 06/06/2023 Suspended isopropyl alcohol 0.7 ml/ml medicated pad (18 sources) Start: 02-12-2023 ALCOHOL PREP PADS pads, medicated ketorolac tromethamine 5 mg/ml ophthalmic solution (10 sources) Nonsteroidal Anti-inflammatory Drug, Cyclooxygenase Inhibitor Start: 06-19-2023 ketorolac (ACULAR) 0.5 % ophthalmic solution lamoTRIgine 100 mg oral tablet (20 sources) Mood Stabilizer, Anti-epileptic Agent Start: 06-08-2023 take 1 tablet by mouth in the morning lamoTRIgine (LaMICtal) 100 mg tablet Take 1 tablet (100 mg total) by mouth in the morning. 30 tablet 2 06/08/2023 Suspended Start: 12-01-2021 End: 06-08-2023 take 2 tablets by mouth in the morning lamoTRIgine (LaMICtal) 25 mg tablet Take 2 tablets (50 mg total) by mouth in the morning. 0 12/01/2021 06/08/2023 Discontinued (Dose adjustment) Start: 04-26-2017 End: 08-20-2017 take 25 mg by mouth once daily Lamotrigine Discontinue d 25 MG PO Daily April 26, 2017 1:00am August 20, 2017 8:45am lidocaine 0.05 mg/mg medicated patch (20 sources) Antiarrhythmic, Amide Local Anesthetic Start: 01-24-2021 apply 1 dose transdermal route once daily, then apply 1 dose transdermal route every twelve hours lidocaine (LIDODERM) 5 % Place 1 patch on the skin daily. Remove & Discard patch within 12 hours or as directed by 30 patch 0 01/24/2021 Suspended Start: 07-15-2020 lidocaine 4% p atch 1 patch(es), Topical, Daily, Refill(s) 0, do not leave patch on for more than 12 hours at a time Start Date: 07/15/20 Status: Ordered Start: 10-01-2019 End: 04-16-2020 apply 1 dose topically once daily Lidocaine (Aspercreme (Lidocaine)) 4 % Adhesive Patch,Medicated Discontinued 2 PATCH TOPICAL Daily 60 30 October 01, 2019 12:00am April 16, 2020 6:05pm Start: 04-26-2017 End: 08-20-2017 apply 1 dose topically once daily Lidocaine Discontinued 1 PATCH TOPICAL Daily April 26, 2017 1:00am August 20, 2017 8:46am loratadine 10 mg oral tablet (7 sources) Start: 04-26-2017 End: 08-20-2017 take 10 mg by mouth once daily in the morning Loratadine Discontinued 10 MG PO Every morning April 26, 2017 1:00am August 20, 2017 8:46am lumateperone 42 mg oral capsule (15 sources) take 1 capsule by mouth at mealtime Caplyta 42 MG 1 capsule with food Orally bedtime Not-Taking/PRN magnesium oxide 400 mg oral tablet (10 sources) Start: 07-29-2023 take 1 tablet by mouth in the morning magnesium oxide (MAGOX) 400 mg tablet Take 1 tablet (400 mg total) by mouth in the morning. 90 tablet 1 07/29/2023 Suspended Start: 06-26-2023 End: 07-24-2023 take 1 tablet by mouth in the morning magnesium oxide 400 mg magnesium tablet Take 400 mg by mouth in the morning. 7 tablet 0 06/26/2023 07/24/2023 Discontinued (Therapy completed) metFORMIN hydrochloride 1000 mg oral tablet (20 sources) Biguanide Start: 05-10-2020 End: 05-25-2021 take 1000 mg by mouth twice daily Metformin Discontinued 1000 MG PO Twice daily May 10, 2020 1:00am May 25, 2021 10:34am Start: 05-10-2020 End: 09-03-2020 take 1000 mg by mouth at breakfast Metformin Discontinued 1000 MG PO With breakfast and supper 0 May 10, 2020 1:00am September 03, 2020 3:53pm Start: 04-16-2020 End: 05-10-2020 take 1000 mg by mouth twice daily Metformin Discontinued 1000 MG PO Twice daily April 16, 2020 1:00am May 10, 2020 11:06am Start: 09-23-2019 End: 04-16-2020 take 500 mg by mouth once daily at breakfast Metformin Discontinued 500 MG PO Daily with breakfast October 01, 2019 12:00am April 16, 2020 6:06pm methylPREDNISolone (20 sources) Corticosteroid Start: 07-04-2018 Start: 07-04-2018 Depo-Medrol 80 mg Jun, Start: 05-02-2018 Start: 05-02-2018 Depo-Medrol 80 mg Apr, montelukast 10 mg oral tablet (20 sources) Leukotriene Receptor Antagonist Start: 06-03-2019 End: 05-10-2020 take 10 mg by mouth once daily in the evening Montelukast Discontinued 10 MG PO Every evening October 01, 2019 12:00am April 16, 2020 6:08pm multivitamin capsule (6 sources) End: 06-19-2023 take 1 capsule by mouth in the morning multivitamin capsule Take 1 capsule by mouth in the morning. 0 06/19/2023 Discontinued (Therapy completed) take 1 capsule by mouth in the m orning multivitamin capsule Take 1 capsule by mouth in the morning. 0 Active multivitamin with folic acid (DAILY-KAYLEE, WITH FOLIC ACID,) 400 mcg tablet (13 sources) Start: 06-19-2023 take 1 tablet by mouth in the morning multivitamin with folic acid (DAILY-KAYLEE, WITH FOLIC ACID,) 400 mcg tablet Take 1 tablet by mouth in the morning. 100 tablet 3 06/19/2023 Suspended Start: 06-19-2023 take 1 tablet by elvira th in the morning multivitamin with folic acid (DAILY-KAYLEE, WITH FOLIC ACID,) 400 mcg tablet Take 1 tablet by mouth in the morning. 100 tablet 3 06/19/2023 Active omeprazole 40 mg delayed release oral capsule (20 sources) Proton Pump Inhibitor Start: 08-08-2023 take 1 capsule by mouth in the morning, then take 1 capsule by mouth before mealtime omeprazole (PriLOSEC) 40 mg capsule Indications: Nausea and vomiting, unspecified vomiting type , Generalized abdominal pain , Chronic GERD , Duodenitis Take 1 capsule (40 mg total) by mouth in the morning and 1 capsule (40 mg total) in the evening. Take before meals. 60 capsule 5 08/08/2023 Suspended Start: 06-18-2023 take 1 capsule by mo [facility] in the morning omeprazole (PriLOSEC) 40 mg capsule Indications: Gastroesophageal reflux disease without esophagitis Take 1 capsule (40 mg total) by mouth in the morning. 30 capsule 2 06/18/2023 Active Start: 08-03-2020 take 40 mg by mouth once daily omeprazole 40 mg, Oral, Daily, Refills(s) 0 Start Date: 08/03/20 Status: Ordered Start: 05-10-2020 End: 05-25-2021 take 20 mg by mouth once daily Omeprazole Discontinued 20 MG PO Daily May 10, 2020 1:00am May 25, 2021 10:37am Start: 04-18-2017 End: 05-10-2020 take 40 mg by mouth once daily Omeprazole Discontinued 40 MG PO Daily October 01, 2019 12:00am April 16, 2020 6:08pm ondansetron 4 mg oral tablet (20 sources) Serotonin-3 Receptor Antagonist Start: 06-26-2023 End: 07-09-2023 ondansetron (ZOFRAN) 4 mg tablet Start: 06-18-2023 End: 07-09-2023 take 1 tablet by mouth every eight hours as needed for nausea and vomiting and nausea and nausea ondansetron ODT (ZOFRAN ODT) 8 mg disintegrating tablet Indications: Nausea Dissolve 1 tablet (8 mg total) on tongue every 8 (eight) hours as needed for nausea or vomiting. 20 tablet 0 06/18/2023 07/09/2023 Discontinued (Therapy completed) Start: 03-14-2022 End: 03-14-2022 ondansetron (ZOFRAN) injecti on 4 mg Start: 05-28-2021 take 4 mg by mouth e very eight hours Ondansetron Active 4 MG PO Every 8 hours 30 May 28, 2021 1:00am take 1 tablet by elvira th every eight hours as needed for nausea and vomiting ondansetron (ZOFRAN) 4 mg tablet Take 1 tablet (4 mg total) by mouth every 8 (eight) hours as needed for nausea or vomiting. 0 Active take 1 tablet by elvira th three times daily as needed for vomiting Zofran 4 MG 1 tablet as needed for vomiting Orally tid Active oxyCODONE hydrochloride 5 mg oral tablet (20 sources) Opioid Agonist Start: 04-23-2020 End: 09-03-2020 take 5 mg by mouth every six hours Oxycodone Discontinued 5 MG PO Every 6 hours 07 10May 10, 2020 September 03, 2020 3:54pm Start: 04-16-2020 End: 05-10-2020 take 10 mg by mouth every six hours Oxycodone Discontinued 10 MG PO Every 6 hours April 23, 2020 May 10, 2020 11:06am Start: 09-25-2019 End: 04-16-2020 take 5 mg by mouth every six hours Oxycodone Discontinued 5 MG PO Every 6 hours 15 12October 01, 2019 April 16, 2020 6:06pm Start: 09-25-2019 End: 10-01-2019 take 10 mg by mouth every six hours Oxycodone Discontinued 10 MG PO Every 6 hours September 25, 2019 October 01, 2019 12:17pm polysaccharide iron complex 150 mg oral capsule (7 sources) Start: 10-01-2019 End: 04-16-2020 Polysaccharide Iron Complex (Ferrex 150) 150 mg iron Capsule Discontinued 150 MG PO Every morning 30 October 01, 2019 12:00am April 16, 2020 6:09pm predniSONE 20 mg oral tablet (17 sources) Start: 05-31-2023 End: 06-08-2023 take 2 tablets by mouth in the morning predniSONE (DELTASONE) 20 mg tablet Take 2 tablets (40 mg total) by mouth in the morning for 7 days. 14 tablet 0 05/31/2023 06/08/2023 Discontinued (Therapy completed) Start: 09-28-2022 predniSONE 10 MG Take 3 tablets by mouth for 3 days then 2 tablets by mouth for 3 days then 1 tablet by mouth for 3 days Orally Once a day for 9 days September, Not-Taking Start: 09-28-2022 Start: 11-24-2020 take 3 tablets by mo ut every twenty-four hours Start: 11-24-2020 take 3 tablets by mo ut every twenty-four hours prednisone 20 MG 3 tablets Orally daily for 5 days Nov, Active Start: 03-11-2020 End: 04-16-2020 take 50 mg by mouth once daily at mealtime Prednisone Discontinued 50 MG PO Daily 5 March 11, 2020 12:00am April 16, 2020 6:07pm administer with food or milk End: 06-20-2023 prednisone 20 mg 2 daily for 4 days, 1 daily for 4 days then 1/2 daily for 4 days orally daily acute May, Active prochlorperazine 5 mg oral tablet (11 sources) Phenothiazine Start: 08-08-2023 take 1 tablet by mouth every six hours as needed for nausea prochlorperazine (COMPAZINE) 5 mg tablet Indications: Nausea and vomiting, unspecified vomiting type Take 1 tablet (5 mg total) by mouth every 6 (six) hours as needed for nausea or vomiting. 30 tablet 0 08/08/2023 Suspended Start: 06-30-2023 End: 07-24-2023 take 2 tablets by mouth every six hours as needed for nausea and vomiting prochlorperazine (COMPAZINE) 5 mg tablet Take 2 tablets (10 mg total) by mouth every 6 (six) hours as needed for nausea or vomiting. 10 tablet 1 07/09/2023 07/24/2023 Discontinued (Therapy completed) Start: 03-14-2022 End: 03-14-2022 prochlorperazine (COMPAZINE) injection 10 mg 24 hr QUEtiapine 150 mg extended release oral tablet (7 sources) Atypical Antipsychotic Start: 04-26-2017 End: 08-20-2017 Quetiapine (Seroquel Xr) 150 mg Tablet Extended Release 24 Hr Discontinued 300 MG PO Daily at bedtime April 26, 2017 1:00am August 20, 2017 8:46am 50 ml sodium chloride 9 mg/ml injection (1 source) Start: 03-14-2022 End: 03-14-2022 0.9 % sodium chloride bolus tirzepatide (MOUNJARO) 5 mg/0.5 mL pen injector (13 sources) End: 07-24-2023 tirzepatide (MOUNJARO) 5 mg/0.5 mL pen injector Inject 5 mg under the skin every 7 days. Sundays 0 07/24/2023 Discontinued tirzepatide (ELVIRA NJARO) 5 mg/0.5 mL pen injector Inject 5 mg under the skin every 7 days. Sundays 0 Active 24 hr venlafaxine 37.5 mg extended release oral capsule (7 sources) Serotonin and Norepinephrine Reuptake Inhibitor Start: 04-26-2017 End: 08-20-2017 take 75 mg by mouth once daily Venlafaxine Discontinued 75 MG PO Daily April 26, 2017 1:00am August 20, 2017 8:46am vitamin b12 1 mg oral tablet (20 sources) Vitamin B12 Start: 05-10-2020 take 1 tablet by mouth in the morning cyanocobalamin 1000 MCG tablet Indications: Anemia, unspecified type Take 1 tablet (1,000 mcg total) by mouth in the morning. 30 tablet 5 06/18/2023 Suspended Start: 10-01-2019 End: 04-16-2020 take 1000 ug by mouth once daily in the morning Cyanocobalamin (Vitamin B-12) Discontinued 1000 MCG PO Every morning 30 October 01, 2019 12:00am April 16, 2020 6:05pm take 1 tablet by elvira th every twenty-four hours Vitamin B-12 ER 1000 MCG 1 tablet Orally Once a day Active take 1 tablet by elvira th every twenty-four hours Vitamin B-12 ER 1000 MCG 1 tablet Orally Once a day Active take 1 tablet by elvira th every twenty-four hours Vitamin B-12 ER 1000 MCG 1 tablet Orally Once a day Active Problems Active Problems Problem Classification Problem Date Documented Da te Episodic/Chronic Acute and chronic tonsillitis (18 sources) Chronic tonsillitis; Translations: [Chronic tonsillitis] Onset: 9 06-11-2018 Chronic Anxiety disorders (20 sources) Anxiety; Translations: [Posttraumatic stress disorder] Onset: 3 07-15-2020 Chronic Asthma (20 sources) Asthma; Translations: [Mild asthma] Onset: 2 07-15-2020 Chronic Calculus of urinary tract (11 sources) History of calculus of kidney; Translations: [Kidney stone] Onset: 1 04-20-2021 Episodic Cardiac and circulatory congenital anomalies (20 sources) Patent foramen ovale; Translations: [Atrial septal defect] Onset: 1 Resolved: 1 Chronic Cardiac dysrhythmias (15 sources) EKG: accelerated junctional rhythm; Translations: [Other specified cardiac arrhythmias] Onset: 4 06-20-2023 Chronic Coma; stupor; and brain damage (1 source) Daytime somnolence; Translations: [Somnolence] 06-12-2023 Episodic Complications of surgical procedures or medical care (7 sources) Complication due to immunization; Translations: [Other complications following immunization, not elsewhere classified, initial encounter] 05-26-2021 Episodic Deficiency and other anemia (19 sources) Anemia; Translations: [Anemia, unspecified] Onset: 4 07-16-2020 Episodic Deficiency and other anemia (20 sources) Iron deficiency anemia; Translations: [Iron deficiency anemia, unspecified] Episodic Diabetes mellitus with complications (20 sources) Type II diabetes mellitus uncontrolled; Translations: [Type 2 diabetes mellitus with hyperglycemia] Onset: 2 Resolved: 2 Chronic Diabetes mellitus without complication (15 sources) Type 2 diabetes mellitus; Translations: [Type 2 diabetes mellitus without complications] Onset: 4 04-24-2020 Chronic Diabetes or abnormal glucose tolerance complicating ; childbirth; or the puerperium (2 sources) Gestational diabetes mellitus 07-15-2020 Episodic Disorders of lipid metabolism (20 sources) Mixed hyperlipidemia; Translations: [Mixed hyperlipidemia] Onset: 2 Resolved: 2 Chronic Disorders of teeth and jaw (1 source) Disorder of teeth and supporting structures, unspecified Episodic E Codes: Fall (17 sources) Fall; Translations: [Unspecified fall, initial encounter] Onset: 4 05-26-2021 Episodic Esophageal disorders (20 sources) Gastroesophageal reflux disease; Translations: [Gastro-esophageal reflux disease without esophagitis] Onset: 2 Resolved: 2 07-15-2020 Chronic Esophageal disorders (1 source) Esophageal disorders Onset: 4 Fluid and electrolyte disorders (15 sources) Hypokalemia; Translations: [Hypokalemia] Onset: 4 06-28-2023 Episodic Gastritis and duodenitis (1 source) Duodenitis; Translations: [Duodenitis without bleeding] 08-08-2023 Episodic Genitourinary symptoms and ill-defined conditions (3 sources) Genuine stress incontinence; Translations: [Stress incontinence (female) (male)] Onset: 2 04-20-2021 Chronic Genitourinary symptoms and ill-defined conditions (12 sources) Ran hematuria; Translations: [Poor stream of urine] Onset: 1 04-20-2021 Episodic Headache; including migraine (20 sources) Migraine; Translations: [Migraine, unspecified, not intractable, without status migrainosus] Onset: 2 Resolved: 2 Chronic Headache; including migraine (3 sources) Headache; Translations: [Acute headache] 07-16-2020 Episodic Headache; including migraine (1 source) Headache; including migraine; Translations: [Headache, unspecified] Onset: 2 Hepatitis (2 sources) Viral hepatitis, type A 07-15-2020 Episodic Joint disorders and dislocations; trauma-related (20 sources) Chondromalacia of patella; Translations: [Chondromalacia patellae, right knee] Onset: 9 04-02-2023 Chronic Joint disorders and dislocations; trauma-related (18 sources) Derangement of left knee; Translations: [Unspecified internal derangement of left knee] Onset: 3 04-02-2023 Chronic Mood disorders (20 sources) Bipolar disorder, most recent episode depression; Translations: [Bipolar disorder] Onset: 2 Resolved: 2 07-16-2020 Chronic Nausea and vomiting (20 sources) Nausea and vomiting; Translations: [Nausea with vomiting, unspecified] Onset: 2 Resolved: 4 Episodic Osteoarthritis (20 sources) Arthritis; Translations: [Arthritis of right knee] Onset: 9 Resolved: 2 07-16-2020 Chronic Other acquired deformities (20 sources) Spondylolisthesis; Translations: [Spondylolisthesis, lumbar region] Episodic Other acquired deformities (20 sources) Spondylolysis; Translations: [Spondylolysis, lumbar region] Episodic Other acquired deformities (3 sources) Spondylolisthesis, lumbar region Onset: 1 Resolved: 1 Episodic Other acquired deformities (17 sources) Lumbar spondylolisthesis; Translations: [Spondylolisthesis, lumbar region] Onset: 1 09-24-2019 Episodic Other aftercare (1 source) Other correction (current) drug therapy; Translations: [OTH ATTENDING UROLOGIST CURRENT DRUG THERAPY] Onset: 2 Episodic Other aftercare (1 source) 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; Translations: [RETIREMENT USE ORAL HYPOGLYCEMIC DX] Onset: 2 Episodic Other connective tissue disease (1 source) Fibromyalgia; Translations: [FIBROMYALGIA] Onset: 2 Episodic Other connective tissue disease (17 sources) Muscle weakness of limb; Translations: [Other symptoms and signs involving the musculoskeletal system] Onset: 4 03-11-2020 Episodic Other connective tissue disease (8 sources) Fibromyalgia; Translations: [Fibromyalgia] 10-12-2016 Episodic Other diseases of bladder and urethra (20 sources) Neurogenic bladder; Translations: [Neuromuscular dysfunction of bladder, unspecified] Onset: 3 04-23-2020 Chronic Other diseases of bladder and urethra (1 source) Neuromuscular dysfunction of bladder, unspecified; Translations: [Neuromuscular dysfunction of bladder, unspecified] Onset: 3 Chronic Other ear and sense organ disorders (18 sources) Hearing loss; Translations: [Unspecified hearing loss, unspecified ear] Onset: 1 04-02-2023 Chronic Other ear and sense organ disorders (18 sources) Sensorineural hearing loss, bilateral; Translations: [Sensorineural hearing loss, bilateral] Onset: 2 04-02-2023 Chronic Other ear and sense organ disorders (18 sources) Conductive hearing loss, bilateral; Translations: [Conductive hearing loss, bilateral] Onset: 1 04-02-2023 Chronic Other fractures (20 sources) Pseudoarthrosis of spine; Translations: [Unspecified fracture of unspecified lumbar vertebra, subsequent encounter for fracture with nonunion] Onset: 4 04-23-2020 Episodic Other gastrointestinal disorders (18 sources) Irritable bowel syndrome; Translations: [Irritable bowel syndrome without diarrhea] Onset: 3 04-02-2023 Chronic Other gastrointestinal disorders (20 sources) Diarrhea; Translations: [Diarrhea, unspecified] 08-08-2023 Episodic Other injuries and conditions due to external causes (1 source) Personal history of other (healed) physical injury and trauma; Translations: [PERS HX OTH HEALED PHYS INJ AND TRAUMA] Onset: 2 Episodic Other liver diseases (4 sources) Abnormal levels of other serum enzymes Onset: 2 Resolved: 2 Episodic Other nervous system disorders (20 sources) Chronic pain; Translations: [Other chronic pain] Chronic Other nervous system disorders (20 sources) Carpal tunnel syndrome; Translations: [Carpal tunnel syndrome, bilateral upper limbs] Chronic Other nervous system disorders (3 sources) Other chronic pain Onset: 1 Resolved: 1 Chronic Other nervous system disorders (17 sources) Walking disability; Translations: [Difficulty in walking, not elsewhere classified] Onset: 4 04-23-2017 Chronic Other nervous system disorders (18 sources) Neuropathy; Translations: [Polyneuropathy, unspecified] Onset: 2 12-30-2021 Chronic Other nervous system disorders (18 sources) Bilateral carpal tunnel syndrome; Translations: [Carpal tunnel syndrome, bilateral upper limbs] Onset: 0 04-02-2023 Chronic Other nervous system disorders (7 sources) Postoperative pain ; Translations: [Other acute postprocedural pain] 09-26-2019 Episodic Other nervous system disorders (17 sources) Numbness and tingling sensation of skin; Translations: [Anesthesia of skin] Onset: 4 03-11-2020 Episodic Other non-traumatic joint disorders (1 source) Pain in left ankle and joints of left foot; Translations: [Pain in left ankle and joints of left foot] Onset: 2 Episodic Other non-traumatic joint disorders (1 source) Pain in left knee; Translations: [Pain in left knee] Onset: 2 Episodic Other non-traumatic joint disorders (1 source) Pain in right hip Episodic Other non-traumatic joint disorders (1 source) Pain in unspecified hip Episodic Other nutritional; endocrine; and metabolic disorders (20 sources) Obese class I; Translations: [Body mass index (BMI) 31.0-31.9, adult] Chronic Other nutritional; endocrine; and metabolic disorders (15 sources) Metabolic syndrome X; Translations: [Metabolic syndrome] Chronic Other nutritional; endocrine; and metabolic disorders (20 sources) Obesity; Translations: [Obesity, unspecified] Chronic Other nutritional; endocrine; and metabolic disorders (2 sources) Metabolic syndrome Onset: 2 Resolved: 2 Chronic Other nutritional; endocrine; and metabolic disorders (3 sources) Obesity, unspecified; Translations: [Obesity, unspecified] Onset: 2 Resolved: 2 Chronic Other nutritional; endocrine; and metabolic disorders (14 sources) Obese class II; Translations: [Body mass index (BMI) 35.0-35.9, adult] Chronic Other nutritional; endocrine; and metabolic disorders (2 sources) Body mass index (BMI) 35.0-35.9, adult Onset: 2 Resolved: 2 Chronic Other nutritional; endocrine; and metabolic disorders (18 sources) Body mass index 40+ - severely obese; Translations: [Body mass index (BMI) 40.0-44.9, adult] 04-23-2020 Chronic Other nutritional; endocrine; and metabolic disorders (4 sources) Morbid obesity; Translations: [Morbid (severe) obesity due to excess calories] Chronic Other nutritional; endocrine; and metabolic disorders (2 sources) Morbid (severe) obesity due to excess calories Chronic Other nutritional; endocrine; and metabolic disorders (18 sources) Body mass index 30+ - obesity; Translations: [Obesity, unspecified] Onset: 2 12-22-2021 Chronic Other nutritional; endocrine; and metabolic disorders (7 sources) Hypomagnesemia; Translations: [Hypomagnesemia] Onset: 4 07-24-2023 Chronic Other nutritional; endocrine; and metabolic disorders (3 sources) Hypomagnesemia; Translations: [Hypomagnesemia] Onset: 4 Chronic Other nutritional; endocrine; and metabolic disorders (1 source) History of iron deficiency; Translations: [Personal history of other endocrine, nutritional and metabolic disease] 08-08-2023 Episodic Other screening for suspected conditions (not mental disorders or infectious disease) (20 sources) Other specified abnormal findings of blood chemistry; Translations: [Elevated liver function tests] Onset: 4 09-26-2019 Episodic Other upper respiratory infections (18 sources) Chronic maxillary sinusitis; Translations: [Chronic maxillary sinusitis] Onset: 1 04-02-2023 Chronic Residual codes; unclassified (20 sources) Obstructive sleep apnea syndrome; Translations: [Obstructive sleep apnea (adult) (pediatric)] Onset: 3 04-02-2023 Chronic Residual codes; unclassified (3 sources) Obstructive sleep apnea (adult) (pediatric); Translations: [Obstructive sleep apnea (adult) (pediatric)] Onset: 4 Chronic Residual codes; unclassified (1 source) Sleep apnea Onset: 4 Chronic Residual codes; unclassified (2 sources) Amnesia 07-15-2020 Episodic Residual codes; unclassified (15 sources) Insomnia; Translations: [Insomnia, unspecified] Episodic Residual codes; unclassified (1 source) Acquired absence of other specified parts of digestive tract; Translations: [ACQ ABSENCE OTH PART DIGESTV TRACT] Onset: 2 Episodic Residual codes; unclassified (17 sources) Left against medical advice; Translations: [Procedure and treatment not carried out because of patient's decision for other reasons] Onset: 4 03-19-2020 Episodic Residual codes; unclassified (7 sources) Tobacco user; Translations: [Tobacco use] 04-24-2020 Episodic Residual codes; unclassified (7 sources) Patient encounter status; Translations: [Encounter for prophylactic measures, unspecified] 09-26-2019 Episodic Residual codes; unclassified (17 sources) History of operative procedure on lumbar spinal structure; Translations: [Other specified postprocedural states] Onset: 4 09-26-2019 Episodic Residual codes; unclassified (2 sources) Other specified health status; Translations: [Other specified conditions influencing health status] 06-12-2023 Episodic Residual codes; unclassified (1 source) Flushing; Translations: [Flushing] 06-12-2023 Episodic Residual codes; unclassified (1 source) Other specified personal risk factors, not elsewhere classified; Translations: [Other specified personal risk factors, not elsewhere classified] Onset: 4 Episodic Spondylosis; intervertebral disc disorders; other back problems (20 sources) Post-laminectomy syndrome; Translations: [Postlaminectomy syndrome, not elsewhere classified] Onset: 0 Resolved: 2 Chronic Spondylosis; intervertebral disc disorders; other back problems (20 sources) Chronic low back pain; Translations: [Lumbago with sciatica, right side] Onset: 7 Resolved: 2 Episodic Sprains and strains (10 sources) Ulnar collateral ligament sprain of left elbow, initial encounter; Translations: [Strain of unspecified muscle, fascia and tendon at shoulder and upper arm level, left arm, subsequent encounter] Onset: 2 Resolved: 2 Episodic Substance-related disorders (20 sources) Smoker; Translations: [Cigarette smoker ] Onset: 3 07-16-2020 Chronic Comment on above: Added secondary to d ocumentation in Social History. Substance-related disorders (1 source) Cannabis use, unspecified, uncomplicated; Translations: [Cannabis use, unspecified, uncomplicated] Onset: 4 Episodic Suicide and intentional self-inflicted injury (7 sources) Suicidal thoughts; Translations: [Suicidal ideations] 04-19-2017 Episodic Unclassified (1 source) Unknown / UNK(Unknown) Onset: 7 Unclassified (1 source) 2-3 weeks follow up Onset: 4 Unclassified (1 source) EMS Onset: 4 Unclassified (1 source) High Blood Sugar - No Symptoms Onset: 4 Unclassified (1 source) Cold Like Symptoms Onset: 4 Urinary tract infections (9 sources) Acute cystitis; Translations: [Acute cystitis without hematuria] Onset: 2 Episodic Viral infection (1 source) Zoster without complications Episodic Past or Other Problems Problem Classification Problem Date Documented Da te Episodic/Chronic Abdominal hernia (20 sources) Umbilical hernia; Translations: [Umbilical hernia without obstruction or gangrene] Onset: 12-24-2018 04-02-2023 Episodic Abdominal pain (20 sources) Periumbilical pain; Translations: [Periumbilical pain] Onset: 03-14-2022 Episodic Acute bronchitis (1 source) Acute bronchitis, unspecified; Translations: [Acute bronchitis, unspecified] Onset: 05-31-2023 Episodic Administrative/social admission (12 sources) Other reduced mobility; Translations: [Impaired mobility and activities of daily living] Onset: 06-06-2023 09-26-2019 Episodic Attention-deficit, conduct, and disruptive behavior disorders (18 sources) Compulsive behavior; Translations: [Other symptoms and signs involving appearance and behavior] Onset: 12-20-2022 04-02-2023 Episodic Cardiac dysrhythmias (20 sources) Palpitations; Translations: [Palpitations] Onset: 08-05-2018 05-16-2023 Episodic Conditions associated with dizziness or vertigo (20 sources) Lightheadedness; Translations: [Dizziness and giddiness] Onset: 05-16-2023 05-16-2023 Episodic Diabetes mellitus without complication (5 sources) Glycosuria; Translations: [Glycosuria] Onset: 04-17-2022 04-20-2021 Episodic Gastrointestinal hemorrhage (20 sources) Hematemesis; Translations: [Hematemesis] Onset: 08-08-2023 08-08-2023 Episodic Joint disorders and dislocations; trauma-related (1 source) Unspecified dislocation of left ulnohumeral joint, subsequent encounter Onset: 07-19-2021 Resolved: 07-19-2021 Episodic Mood disorders (18 sources) Mood disorders Onset: 02-23-2023 Resolved: 07-24-2023 02-23-2023 Noninfectious gastroenteritis (15 sources) Colitis; Translations: [Noninfective gastroenteritis and colitis, unspecified] Onset: 06-27-2023 07-03-2023 Episodic Nonspecific chest pain (20 sources) Chest pain, unspecified; Translations: [Chest pain] Onset: 01-10-2022 Episodic Nutritional deficiencies (2 sources) Deficiency of other specified B group vitamins Onset: 12-06-2021 Resolved: 01-18-2022 Episodic Other acquired deformities (1 source) Spondylolysis, lumbar region Onset: 04-13-2021 Resolved: 04-13-2021 Episodic Other acquired deformities (18 sources) Acquired spondylolisthesis; Translations: [Spondylolisthesis, site unspecified] Onset: 06-09-2019 04-02-2023 Episodic Other aftercare (2 sources) 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; Translations: [[facility] (current) use of insulin] Onset: 12-30-2021 Episodic Other gastrointestinal disorders (1 source) Other dysphagia; Translations: [Other dysphagia] Onset: 08-08-2023 Episodic Other gastrointestinal disorders (1 source) Diarrhea, unspecified; Translations: [Diarrhea, unspecified] Onset: 08-17-2023 Episodic Other injuries and conditions due to external causes (1 source) Injury of ulnar nerve at forearm level, left arm, initial encounter Onset: 07-19-2021 Resolved: 07-19-2021 Episodic Other lower respiratory disease (18 sources) Dyspnea; Translations: [Shortness of breath] Onset: 08-08-2018 08-08-2018 Episodic Other nervous system disorders (2 sources) Unspecified abnormal involuntary movements; Translations: [Unspecified disturbances of skin sensation] Onset: 06-25-2017 Episodic Other nutritional; endocrine; and metabolic disorders (1 source) Abnormal weight gain Onset: 12-06-2021 Resolved: 12-06-2021 Episodic Other nutritional; endocrine; and metabolic disorders (1 source) Personal history of other endocrine, nutritional and metabolic disease; Translations: [Personal history of other endocrine, nutritional and metabolic disease] Onset: 08-15-2023 Episodic Other and delivery including normal (20 sources) Dichorionic diamniotic twin ; Translations: [Twin , dichorionic/diamnioti c, third trimester] Onset: 06-25-2016 Resolved: 10-20-2016 10-20-2016 Episodic Other upper respiratory disease (18 sources) Deviated nasal septum; Translations: [Deviated nasal septum] Onset: 06-11-2018 06-11-2018 Episodic Other upper respiratory infections (18 sources) Acute sinusitis; Translations: [Acute sinusitis, unspecified] Onset: 09-26-2018 09-26-2018 Episodic Ovarian cyst (1 source) Unspecified ovarian cyst, right side; Translations: [UNSPECIFIED OVARIAN CYST RIGHT SIDE] Onset: 05-12-2021 Episodic Residual codes; unclassified (2 sources) Insomnia, unspecified Onset: 12-06-2021 Resolved: 01-18-2022 Episodic Residual codes; unclassified (18 sources) Gestation period, 37 weeks; Translations: [37 weeks gestation of ] Onset: 06-15-2016 Resolved: 10-20-2016 10-20-2016 Episodic Screening and history of mental health and substance abuse codes (20 sources) Encounter for screening for depression; Translations: [H/O: manic depressive disorder] Onset: 04-02-2023 Episodic Syncope (20 sources) Syncope and collapse; Translations: [Syncope and collapse] Onset: 03-14-2022 Episodic Unclassified (1 source) Low back pain, unspecified M54.50 Unclassified (18 sources) Onset: 02-25-2023 02-25-2023 Results Test Name Value Interpretation Reference Range Facility CBC AND AUTO DIFFon 12-31-19 24 ABSOLUTE BASOPHIL 0.0 X10E9/L Normal 0.0-0.2 [facility] Comment on above: Performed By: #### B MP #### [facility] ([id number]) [address], [address] [place] [address] ABSOLUTE NEUTROPHIL 7.7 X10E9/L High 1.5-6.6 [facility] Comment on above: Performed By: #### B MP #### [facility] ([id number]) [address], [address] [place] [address] Basophils/100 WBC (Bld) 0.2 % Normal [facility] Comment on above: Performed By: #### B MP #### [facility] ([id number]) [address], [address] [place] [address] Eosinophils (Bld) [#/Vol] 0.0 10*3/uL Normal 0.0-0.4 [facility] Comment on above: Performed By: #### B MP #### [facility] ([id number]) [address], [address] [place] [address] Eosinophils/100 WBC (Bld) 0.0 % Normal [facility] Comment on above: Performed By: #### B MP #### [facility] ([id number]) [address], [address] [place] [address] Erythrocyte distribution width (RBC) [Ratio] 13.8 % Normal 11.5-15.0 [facility] Comment on above: Performed By: #### B MP #### [facility] ([id number]) [address], [address] [place] [address] Hematocrit (Bld) [Volume fraction] 35.9 % Normal 35-47 [facility] Comment on above: Performed By: #### B MP #### [facility] ([id number]) [address], [address] [place] [address] Hemoglobin (Bld) [Mass/Vol] 12.1 g/dL Normal 11.7-15.5 [facility] Comment on above: Performed By: #### B MP #### [facility] ([id number]) [address], [address] [place] [address] Lymphocytes (Bld) [#/Vol] 1.8 10*3/uL Normal 1.0-3.5 [facility] Comment on above: Performed By: #### B MP #### [facility] ([id number]) [address], [address] [place] [address] Lymphocytes/100 WBC (Bld) 17.6 % Normal [facility] Comment on above: Performed By: #### B MP #### [facility] ([id number]) [address], [address] [place] [address] MCH (RBC) [Entitic mass] 30.3 pg Normal 27-34 [facility] Comment on above: Performed By: #### B MP #### [facility] ([id number]) [address], [address] [place] [address] MCHC (RBC) [Mass/Vol] 33.7 g/dL Normal 32-36 [facility] Comment on above: Performed By: #### B MP #### [facility] ([id number]) [address], [address] [place] [address] MCV (RBC) [Entitic vol] 90 fL Normal 80-100 [facility] Comment on above: Performed By: #### B MP #### [facility] ([id number]) [address], [address] [place] [address] Monocytes (Bld) [#/Vol] 0.8 10*3/uL Normal 0-0.9 [facility] Comment on above: Performed By: #### B MP #### [facility] ([id number]) [address], [address] [place] [address] Monocytes/100 WBC (Bld) 7.4 % Normal [facility] Comment on above: Performed By: #### B MP #### [facility] ([id number]) [address], [address] [place] [address] Neutrophils/100 WBC (Bld) 74.8 % Normal [facility] Comment on above: Performed By: #### B MP #### [facility] ([id number]) [address], [address] [place] [address] Platelet mean volume (Bld) [Entitic vol] 7.5 fL Normal 7-12 [facility] Comment on above: Performed By: #### B MP #### [facility] ([id number]) [address], [address] [place] [address] Platelets (Bld) [#/Vol] 436 10*3/uL Normal 150-450 [facility] Comment on above: Performed By: #### B MP #### [facility] ([id number]) [address], [address] [place] [address] RBC COUNT 4.00 X10E12/L Normal 3.80-5.20 [facility] Comment on above: Performed By: #### B MP #### [facility] ([id number]) [address], [address] [place] [address] WBC (Bld) [#/Vol] 10.4 10*3/uL Normal 4.0-11.0 [place] Comment on above: Performed By: #### B MP #### [facility] ([id number]) [address] [place] [address] COMPREHENSIVE METABOLIC PANE Pee 12-31-2023 Albumin [Mass/Vol] 4.5 g/dL Normal 3.2-5.3 [facility] Comment on above: Performed By: #### B MP #### [facility] ([id number]) [address], [address] [place] [address] ALP [Catalytic activity/Vol] 50 U/L Normal 39-130 [facility] Comment on above: Performed By: #### B MP #### [facility] ([id number]) [address], [address] [place] [address] ALT [Catalytic activity/Vol] 31 U/L Normal 0-31 [facility] Comment on above: Performed By: #### B MP #### [facility] ([id number]) [address], [address] [place] [address] Anion gap [Moles/Vol] 10 mmol/L Normal 5-15 [facility] Comment on above: Performed By: #### B MP #### [facility] ([id number]) [address] [address] [place] [address] AST [Catalytic activity/Vol] 28 U/L Normal 0-41 [facility] Comment on above: Performed By: #### B MP #### [facility] ([id number]) [address] [address] [place] [address] Bilirubin [Mass/Vol] 1.2 mg/dL Normal 0.3-1.2 [facility] Comment on above: Performed By: #### B MP #### [facility] ([id number]) [address] [address] [place] [address] Calcium [Mass/Vol] 9.0 mg/dL Normal 8.5-10.5 [facility] Comment on above: Performed By: #### B MP #### [facility] ([id number]) [address] [address] [place] [address] Chloride [Moles/Vol] 105 mmol/L Normal 98-109 [facility] Comment on above: Performed By: #### B MP #### [facility] ([id number]) [address] [address] [place] [address] CO2 [Moles/Vol] 20 mmol/L Low 22-32 [facility] Comment on above: Performed By: #### B MP #### [facility] ([id number]) [address] [address] [place] [address] Creatinine [Mass/Vol] 0.91 mg/dL Normal 0.40-1.00 [facility] Comment on above: Result Comment: METH OD TRACEABLE TO IDMS STANDARD Performed By: #### B MP #### [facility] ([id number]) [address] [address] [place] [address] GFR/1.73 sq M.predicted among non-blacks MDRD (S/P/Bld) [Vol rate/Area] 84 mL/min/{1.73_m2} Normal >59 [facility] Comment on above: Result Comment: Reported eGFR is based on the CKD-EPI 2020 equation that does not use a race coefficient. Performed By: #### B MP #### [facility] ([id number]) [address], [address] [place] [address] Glucose [Mass/Vol] 146 mg/dL High 65-99 [facility] Comment on above: Performed By: #### B MP #### [facility] ([id number]) [address] [address] [place] [address] Potassium [Moles/Vol] 3.7 mmol/L Normal 3.5-5.0 [facility] Comment on above: Performed By: #### B MP #### [facility] ([id number]) [address] [address] [place] [address] Protein [Mass/Vol] 7.7 g/dL Normal 6.0-8.0 [facility] Comment on above: Performed By: #### B MP #### [facility] ([id number]) [address], [address] [place] [address] Sodium [Moles/Vol] 135 mmol/L Normal 134-146 [facility] Comment on above: Performed By: #### B MP #### [facility] ([id number]) [address] [address] [place] [address] Urea nitrogen [Mass/Vol] 12 mg/dL Normal 5-23 [facility] Comment on above: Performed By: #### B MP #### [facility] ([id number]) [address] [address] [place] [address] MAGNESIUMon 12-31-2023 Magnesium [Mass/Vol] 2.0 mg/dL Normal 1.8-2.6 [facility] Comment on above: Performed By: #### B MP #### [facility] ([id number]) [address], [address] [place] [address] POTASSIUMon 12-31-2023 Potassium [Moles/Vol] 3.5 mmol/L Normal 3.5-5.0 [facility] Comment on above: Performed By: #### B MP #### [facility] ([id number]) [address], [address] [place] [address] Troponin I.cardiac High sens itivity method [Mass/Vol]on 12-31-2023 1 HOUR TROP I, HIGH SENSITIVITY 5 ng/L Normal <16 [facility] Comment on above: Performed By: #### B MP #### [facility] ([id number]) [address], [address] [place] [address] TROPONIN I, HIGH SENSITIVITY 5 ng/L Normal <16 [facility] Comment on above: Performed By: #### B MP #### [facility] ([id number]) [address], [address] [place] [address] BASIC METABOLIC PANLon 12-29 Anion gap [Moles/Vol] 13 mmol/L Normal 5-15 [facility] Comment on above: Performed By: #### B MP #### [facility] ([id number]) [address], [address] [place] [address] Calcium [Mass/Vol] 9.1 mg/dL Normal 8.5-10.5 [facility] Comment on above: Performed By: #### B MP #### [facility] ([id number]) [address], [address] [place] [address] Chloride [Moles/Vol] 101 mmol/L Normal 98-109 [facility] Comment on above: Performed By: #### B MP #### [facility] ([id number]) [address], [address] [place] [address] CO2 [Moles/Vol] 22 mmol/L Normal 22-32 [facility] Comment on above: Performed By: #### B MP #### [facility] ([id number]) [address], [address] [place] [address] Creatinine [Mass/Vol] 0.97 mg/dL Normal 0.40-1.00 [facility] Comment on above: Result Comment: METH OD TRACEABLE TO IDMS STANDARD Performed By: #### B MP #### [facility] ([id number]) [address], [address] [place] [address] GFR/1.73 sq M.predicted among non-blacks MDRD (S/P/Bld) [Vol rate/Area] 78 mL/min/{1.73_m2} Normal >59 [facility] Comment on above: Result Comment: Reported eGFR is based on the CKD-EPI 2020 equation that does not use a race coefficient. Performed By: #### B MP #### [facility] ([id number]) [address], [address] [place] [address] Glucose [Mass/Vol] 160 mg/dL High 65-99 [facility] Comment on above: Performed By: #### B MP #### [facility] ([id number]) [address], [address] [place] [address] Potassium [Moles/Vol] 2.9 mmol/L Low 3.5-5.0 [facility] Comment on above: Performed By: #### B MP #### [facility] ([id number]) [address], [address] [place] [address] Sodium [Moles/Vol] 136 mmol/L Normal 134-146 [facility] Comment on above: Performed By: #### B MP #### [facility] ([id number]) [address], [address] [place] [address] Urea nitrogen [Mass/Vol] 15 mg/dL Normal 5-23 [facility] Comment on above: Performed By: #### B MP #### [facility] ([id number]) [address], [address] [place] [address] CBC AND AUTO DIFFon 12-30-19 24 ABSOLUTE BASOPHIL 0.0 X10E9/L Normal 0.0-0.2 [facility] Comment on above: Performed By: #### B MP #### [facility] ([id number]) [address], [address] [place] [address] ABSOLUTE NEUTROPHIL 12.2 X10E9/L High 1.5-6.6 [facility] Comment on above: Performed By: #### B MP #### [facility] ([id number]) [address], [address] [place] [address] Basophils/100 WBC (Bld) 0.1 % Normal [facility] Comment on above: Performed By: #### B MP #### [facility] ([id number]) [address], [address] [place] [address] Eosinophils (Bld) [#/Vol] 0.1 10*3/uL Normal 0.0-0.4 [facility] Comment on above: Performed By: #### B MP #### [facility] ([id number]) [address], [address] [place] [address] Eosinophils/100 WBC (Bld) 0.4 % Normal [facility] Comment on above: Performed By: #### B MP #### [facility] ([id number]) [address], [address] [place] [address] Erythrocyte distribution width (RBC) [Ratio] 13.8 % Normal 11.5-15.0 [facility] Comment on above: Performed By: #### B MP #### [facility] ([id number]) [address], [address] [place] [address] Hematocrit (Bld) [Volume fraction] 38.3 % Normal 35-47 [facility] Comment on above: Performed By: #### B MP #### [facility] ([id number]) [address], [address] [place] [address] Hemoglobin (Bld) [Mass/Vol] 12.9 g/dL Normal 11.7-15.5 [facility] Comment on above: Performed By: #### B MP #### [facility] ([id number]) [address], [address] [place] [address] Lymphocytes (Bld) [#/Vol] 1.4 10*3/uL Normal 1.0-3.5 [facility] Comment on above: Performed By: #### B MP #### [facility] ([id number]) [address], [address] [place] [address] Lymphocytes/100 WBC (Bld) 9.7 % Normal [facility] Comment on above: Performed By: #### B MP #### [facility] ([id number]) [address], [address] [place] [address] MCH (RBC) [Entitic mass] 30.2 pg Normal 27-34 [facility] Comment on above: Performed By: #### B MP #### [facility] ([id number]) [address], [address] [place] [address] MCHC (RBC) [Mass/Vol] 33.7 g/dL Normal 32-36 [facility] Comment on above: Performed By: #### B MP #### [facility] ([id number]) [address], [address] [place] [address] MCV (RBC) [Entitic vol] 90 fL Normal 80-100 [facility] Comment on above: Performed By: #### B MP #### [facility] ([id number]) [address], [address] [place] [address] Monocytes (Bld) [#/Vol] 0.8 10*3/uL Normal 0-0.9 [facility] Comment on above: Performed By: #### B MP #### [facility] ([id number]) [address], [address] [place] [address] Monocytes/100 WBC (Bld) 5.8 % Normal [facility] Comment on above: Performed By: #### B MP #### [facility] ([id number]) [address], [address] [place] [address] Neutrophils/100 WBC (Bld) 84.0 % Normal [facility] Comment on above: Performed By: #### B MP #### [facility] ([id number]) [address], [address] [place] [address] Platelet mean volume (Bld) [Entitic vol] 7.7 fL Normal 7-12 [facility] Comment on above: Performed By: #### B MP #### [facility] ([id number]) [address], [address] [place] [address] Platelets (Bld) [#/Vol] 478 10*3/uL High 150-450 [facility] Comment on above: Performed By: #### B MP #### [facility] ([id number]) [address], [address] [place] [address] RBC COUNT 4.28 X10E12/L Normal 3.80-5.20 [facility] Comment on above: Performed By: #### B MP #### [facility] ([id number]) [address], [address] [place] [address] WBC (Bld) [#/Vol] 14.5 10*3/uL High 4.0-11.0 [place] Comment on above: Performed By: #### B MP #### [facility] ([id number]) [address], [address] [place] [address] ABSOLUTE BASOPHIL 0.0 X10E9/L Normal 0.0-0.2 [facility] Comment on above: Performed By: #### B MP #### [facility] ([id number]) [address], [address] [place] [address] ABSOLUTE NEUTROPHIL 14.7 X10E9/L High 1.5-6.6 [facility] Comment on above: Performed By: #### B MP #### [facility] ([id number]) [address], [address] [place] [address] Basophils/100 WBC (Bld) 0.2 % Normal [facility] Comment on above: Performed By: #### B MP #### [facility] ([id number]) [address], [address] [place] [address] Eosinophils (Bld) [#/Vol] 0.0 10*3/uL Normal 0.0-0.4 [facility] Comment on above: Performed By: #### B MP #### [facility] ([id number]) [address], [address] [place] [address] Eosinophils/100 WBC (Bld) 0.0 % Normal [facility] Comment on above: Performed By: #### B MP #### [facility] ([id number]) [address], [address] [place] [address] Erythrocyte distribution width (RBC) [Ratio] 13.4 % Normal 11.5-15.0 [facility] Comment on above: Performed By: #### B MP #### [facility] ([id number]) [address] [address] [place] [address] Hematocrit (Bld) [Volume fraction] 41.0 % Normal 35-47 [facility] Comment on above: Performed By: #### B MP #### [facility] ([id number]) [address], [address] [place] [address] Hemoglobin (Bld) [Mass/Vol] 13.9 g/dL Normal 11.7-15.5 [facility] Comment on above: Performed By: #### B MP #### [facility] ([id number]) [address], [facility] [address] [place] [address] Lymphocytes (Bld) [#/Vol] 1.5 10*3/uL Normal 1.0-3.5 [facility] Comment on above: Performed By: #### B MP #### [facility] ([id number]) [address] [address] [place] [address] Lymphocytes/100 WBC (Bld) 8.7 % Normal [facility] Comment on above: Performed By: #### B MP #### [facility] ([id number]) [address], [facility] [address] [place] [address] MCH (RBC) [Entitic mass] 30.3 pg Normal 27-34 [facility] Comment on above: Performed By: #### B MP #### [facility] ([id number]) [address], [address] [place] [address] MCHC (RBC) [Mass/Vol] 33.8 g/dL Normal 32-36 [facility] Comment on above: Performed By: #### B MP #### [facility] ([id number]) [address], [facility] [address] [place] [address] MCV (RBC) [Entitic vol] 89 fL Normal 80-100 [facility] Comment on above: Performed By: #### B MP #### [facility] ([id number]) [address] [address] [place] [address] Monocytes (Bld) [#/Vol] 0.9 10*3/uL Normal 0-0.9 [facility] Comment on above: Performed By: #### B MP #### [facility] ([id number]) [address], [address] [place] [address] Monocytes/100 WBC (Bld) 5.2 % Normal [facility] Comment on above: Performed By: #### B MP #### [facility] ([id number]) [address], [address] [place] [address] Neutrophils/100 WBC (Bld) 85.9 % Normal [facility] Comment on above: Performed By: #### B MP #### [facility] ([id number]) [address] [address] [place] [address] Platelet mean volume (Bld) [Entitic vol] 8.1 fL Normal 7-12 [facility] Comment on above: Performed By: #### B MP #### [facility] ([id number]) [address] [address] [place] [address] Platelets (Bld) [#/Vol] 587 10*3/uL High 150-450 [facility] Comment on above: Performed By: #### B MP #### [facility] ([id number]) [address] [place] [address] RBC COUNT 4.58 X10E12/L Normal 3.80-5.20 [facility] Comment on above: Performed By: #### B MP #### [facility] ([id number]) [address] [place] [address] WBC (Bld) [#/Vol] 17.1 10*3/uL High 4.0-11.0 [place] Comment on above: Performed By: #### B MP #### [facility] ([id number]) [address], [address] [place] [address] COMPREHENSIVE METABOLIC PANE Pee 12-30-2023 Albumin [Mass/Vol] 5.5 g/dL High 3.2-5.3 [facility] Comment on above: Performed By: #### B MP #### [facility] ([id number]) [address], [address] [place] [address] ALP [Catalytic activity/Vol] 63 U/L Normal 39-130 [facility] Comment on above: Performed By: #### B MP #### [facility] ([id number]) [address], [address] [place] [address] ALT [Catalytic activity/Vol] 39 U/L High 0-31 [facility] Comment on above: Performed By: #### B MP #### [facility] ([id number]) [address], [address] [place] [address] Anion gap [Moles/Vol] 17 mmol/L High 5-15 [facility] Comment on above: Performed By: #### B MP #### [facility] ([id number]) [address], [address] [place] [address] AST [Catalytic activity/Vol] 32 U/L Normal 0-41 [facility] Comment on above: Performed By: #### B MP #### [facility] ([id number]) [address] [place] [address] Bilirubin [Mass/Vol] 0.6 mg/dL Normal 0.3-1.2 [facility] Comment on above: Performed By: #### B MP #### [facility] ([id number]) [address], [address] [place] [address] Calcium [Mass/Vol] 10.1 mg/dL Normal 8.5-10.5 [facility] Comment on above: Performed By: #### B MP #### [facility] ([id number]) [address], [address] [place] [address] Chloride [Moles/Vol] 99 mmol/L Normal 98-109 [facility] Comment on above: Performed By: #### B MP #### [facility] ([id number]) [address], [address] [place] [address] CO2 [Moles/Vol] 21 mmol/L Low 22-32 [facility] Comment on above: Performed By: #### B MP #### [facility] ([id number]) [address], [address] [place] [address] Creatinine [Mass/Vol] 1.19 mg/dL High 0.40-1.00 [facility] Comment on above: Result Comment: METH OD TRACEABLE TO IDMS STANDARD Performed By: #### B MP #### [facility] ([id number]) [address] [place] [address] GFR/1.73 sq M.predicted among non-blacks MDRD (S/P/Bld) [Vol rate/Area] 61 mL/min/{1.73_m2} Normal >59 [facility] Comment on above: Result Comment: Reported eGFR is based on the CKD-EPI 2020 equation that does not use a race coefficient. Performed By: #### B MP #### [facility] ([id number]) [address] [place] [address] Glucose [Mass/Vol] 196 mg/dL High 65-99 [facility] Comment on above: Performed By: #### B MP #### [facility] ([id number]) [address], [address] [place] [address] Potassium [Moles/Vol] 2.8 mmol/L Low 3.5-5.0 [facility] Comment on above: Performed By: #### B MP #### [facility] ([id number]) [address], [address] [place] [address] Protein [Mass/Vol] 9.6 g/dL High 6.0-8.0 [facility] Comment on above: Performed By: #### B MP #### [facility] ([id number]) [address] [place] [address] Sodium [Moles/Vol] 137 mmol/L Normal 134-146 [facility] Comment on above: Performed By: #### B MP #### [facility] ([id number]) [address] [place] [address] Urea nitrogen [Mass/Vol] 19 mg/dL Normal 5-23 [facility] Comment on above: Performed By: #### B MP #### [facility] ([id number]) [address] [place] [address] CT ABDOMEN AND PELVIS W CONT on 12-30-2023 CT ABDOMEN AND PELVIS W CONT CT ABDOMEN AND PELVIS W CONT CT ABDOMEN AND PELVIS W CONT HISTORY: Left lower quadrant abdominal pain, vomiting COMPARISON: 08/20/2023 TECHNIQUE: CT images of the abdomen and pelvis obtained following administration of contrast. Automated exposure control was utilized.All CT scans at this facility use dose modulation, iterative reconstruction, and/or weight based dosing when appropriate to reduce radiation dose to as low as reasonably achievable. FINDINGS: LOWER CHEST: Lung bases are clear. LIVER AND BILIARY: Diffuse hepatic steatosis. Noncirrhotic liver morphology. No definite hepatic lesion. Portal venous system is patent. Gallbladder is surgically absent with surgical clips in the gallbladder fossa. Mild biliary ductal dilatation likely related to the reservoir effect post cholecystectomy. PANCREAS: Unremarkable SPLEEN: Unremarkable. ADRENALS: Unremarkable. KIDNEYS, URETERS, AND BLADDER: Symmetric enhancement of the renal parenchyma. No renal mass or lesion. The ureters are unremarkable. No evidence of collecting system dilatation. Compromised assessment of the bladder given the degree of distension. REPRODUCTIVE ORGANS: Uterus and ovaries are present. GI TRACT AND PERITONEUM: Small hiatal hernia. Likely reactive edema of the distal esophagus consistent with history of vomiting. The appendix and terminal ileum are unremarkable. No evidence of bowel obstruction. No pericolonic fat stranding or free intraperitoneal gas. VASCULATURE: Unremarkable. LYMPH NODES: No enlarged lymph nodes by size criteria. MUSCULOSKELETAL: Degenerative changes of the thoracolumbar spine. Posterior lumbar fusion with intervertebral body fusion cage of L4-L5. IMPRESSION: * No CT evidence of acute abnormality within the abdomen or pelvis. * Small hiatal hernia. * Diffuse hepatic steatosis. Approved by Resident Harmony Michael DO on 12/30/2023 5:39 AM I, Arcenio Bonner MD have personally reviewed the image(s) and agree with and/or edited the report Finalized by Arcenio Bonner MD on 12/30/2023 5:56 AM Normal [facility] DRUG SCREEN, URINEon 024 AMPHETAMINE/METHAMP Negative Normal NEG [place] Comment on above: Result Comment: AMPH /METH screening cut off = 1000 ng/mL Performed By: #### B MP #### [facility] ([id number]) [address], [address] [place] [address] BARBITURATES Negative Normal NEG [facility] Comment on above: Result Comment: Nini iturates screening cut off value = 200 ng/mL Performed By: #### B MP #### [facility] ([id number]) [address], [address] [place] [address] BENZODIAZEPINES Negative Normal NEG [facility] Comment on above: Result Comment: Ravindra odiazepines screening cut off value = 200 ng/mL Performed By: #### B MP #### [facility] ([id number]) [address], [address] [place] [address] CANNABINOIDS Positive Abnormal NEG [facility] Comment on above: Result Comment: Conf irmation available upon request. Cannabinoids/THC screening cut off value = 50 ng/mL Performed By: #### B MP #### [facility] ([id number]) [address], [address] [place] [address] COCAINE METABOLITE Positive Abnormal NEG [facility] Comment on above: Result Comment: Conf irmation available upon request. Cocaine screening cut off value = 300 ng/mL Performed By: #### B MP #### [facility] ([id number]) [address], [address] [place] [address] ECSTASY Positive Abnormal NEG [facility] Comment on above: Result Comment: Inte rference from Buproprion or Labetalol may cause a positive result, confirmation available upon request. Ecstasy screening cut off value = 500 ng/mL This report is intended for use in clinical monitoring or management of patients. Performed By: #### B MP #### [facility] ([id number]) [address], [address] [place] [address] METHADONE Negative Normal NEG [facility] Comment on above: Result Comment: Meth adone screening cut off value = 300 ng/mL. Performed By: #### B MP #### [facility] ([id number]) [address] [place] [address] OPIATES Negative Normal NEG [facility] Comment on above: Result Comment: Opia rosemarie screening cut off value = 300 ng/mL NOTE: This test is used for the detection of codeine, hydrocodone (>1000 ng/mL), morphine and hydromorphone (>900 ng/mL) in urine. Performed By: #### B MP #### [facility] ([id number]) [address], [address] [place] [address] OXYCODONE Negative Normal NEG [facility] Comment on above: Result Comment: Oxyc odone screening cut off value = 300 ng/mL NOTE: This test is used for the detection of oxycodone and oxymorphone in urine. Performed By: #### B MP #### [facility] ([id number]) [address], [address] [place] [address] PHENCYCLIDINE Negative Normal NEG [facility] Comment on above: Result Comment: Phen cyclidine screening cut off value = 25 ng/mL Performed By: #### B MP #### [facility] ([id number]) [address], [address] [place] [address] HCG ( test) Ql (U)o n 12-30-2023 Beta HCG ( test) Ql (U) Negative Normal NEG [facility] Comment on above: Performed By: #### B MP #### [facility] ([id number]) [address], [address] [place] [address] LIPASEon 12-30-2023 Lipase [Catalytic activity/Vol] 29 U/L Normal 17-40 [facility] Comment on above: Performed By: #### B MP #### [facility] ([id number]) [address], [address] [place] [address] SARS/FLU A+B/RSV by NAAT/Mol ecularon 12-30-2023 SARS/FLU A+B/RSV by NAAT/Molecular FLU A PCR Negative (qualifier value) FLU B PCR Negative (qualifier value) RSV by PCR Negative (qualifier value) SARS CoV 2 Not detected (qualifier value) NOTE The Xpert Xpress SARS-CoV-2/Flu/RSV Plus test is a rapid, multiplexed real-time RT-PCR test intended for the simultaneous qualitative detection and differentiation of SARS-CoV-2, influenza A, influenza B and respiratory syncytial virus (RSV) viral RNA from individuals suspected of respiratory viral infection consistent with COVID-19 by their healthcare provider. This test has not been validated in asymptomatic patients. The Xpert Xpress SARS-CoV-2 test is intended for use by qualified and trained operators who are performing tests using either [employer] DX or [employer] Infinity systems and is limited to laboratories that meet the CLIA requirements to perform high and moderate complexity tests. The Xpert Xpress SARS-CoV-2/Flu/RSV Plus is only for use under the Food and Drug Administration's Emergency Use Authorization. Results are for the simultaneous detection and differentiation of SARS-CoV-2, influenza A, influenza B and RSV nucleic acids in clinical specimens. SARS-CoV-2, influenza A, influenza B and RSV RNA identified by this test are generally detectable in upper respiratory samples during the acute phase of infection. Positive results are indicative of the presence of the identified virus, but do not rule out bacterial infection or co-infection with other pathogens not detected by this test. Clinical correlation with patient history and other diagnostic information is necessary to determine patient infection status. The agent detected may not be the definite cause of disease. Negative results do not preclude SARS-CoV-2, influenza A, influenza B and RSV infection and should not be used as the sole basis for treatment or other patient management decisions. Negative results must be combined with clinical observations, patient history and epidemiological information. An Invalid result may occur with specimen-associated inhibition unable to be resolved with specimen repeat. Fact Sheet for Healthcare Providers: https://www.fda.gov/media/1 05900/download Fact Sheet for Patients: https://www.fda.gov/media/1 01937/download Normal [facility] Comment on above: Performed By: #### B MP #### [facility] ([id number]) [address] [place] [address], [address] [place] [address] URINE CULTUREon 12-30-2023 Bacteria identified Cx Nom (U) CULTURE RESULTS 50,000 to 100,000 ORGANISMS/mL ESCHERICHIA COLI [ S = SUSCEPTIBLE R = RESISTANT I = INTERMEDIATE S-DO = Susceptible-dose dependent NS = Non-suscceptible NO = No Interpretation ] Organism: ESCHERICHIA COLI Antibiotic Interpretation ZOEY Status AMPICILLIN R >=32 F AMP/SULBACTAM I 16/8 F CEFAZOLIN S <=4 F CEFTRIAXONE S <=0.25 F CIPROFLOXACIN S <=0.25 F GENTAMICIN R >=16 F LEVOFLOXACIN S <=0.12 F NITROFURANTOIN S <=16 F PIPERACIL/TAZOBACTAM S <=4 F TOBRAMYCIN R 8 F TRIMETH/SULFAMETHOXAZOLE R >=16/304 F Resistant [facility] Comment on above: Performed By: #### B MP #### [facility] ([id number]) [address] [place] [address], [address] [place] [address] URN MACROSCOPIC NURon 2023 BILIRUBIN SAE Small Abnormal NEG [facility] Comment on above: Performed By: #### B MP #### [facility] ([id number]) [address] [place] [address], [address] [place] [address] BLOOD/HGB SEA MODERATE Abnormal NEG [facility] Comment on above: Performed By: #### B MP #### [facility] ([id number]) [address], [address] [place] [address] GLUCOSE SAE Negative Normal NEG [facility] Comment on above: Performed By: #### B MP #### [facility] ([id number]) [address], [address] [place] [address] KETONES SAE 15 mg/dL Abnormal NEG [facility] Comment on above: Performed By: #### B MP #### [facility] ([id number]) [address], [address] [place] [address] LEUKOCYTE ESTERASE SAE Negative Normal NEG [facility] Comment on above: Performed By: #### B MP #### [facility] ([id number]) [address], [address] [place] [address] NITRITE SAE Positive Abnormal NEG [facility] Comment on above: Performed By: #### B MP #### [facility] ([id number]) [address], [address] [place] [address] PH SAE 5.5 Normal 5.0-8.5 [facility] Comment on above: Performed By: #### B MP #### [facility] ([id number]) [address], [address] [place] [address] PROTEIN SAE >=300 Abnormal NEG [facility] Comment on above: Performed By: #### B MP #### [facility] ([id number]) [address], [address] [place] [address] SPECIFIC GRAVITY SAE >=1.030 Normal 1.003-1 .03 5 [facility] Comment on above: Performed By: #### B MP #### [facility] ([id number]) [address], [address] [place] [address] UROBILINOGEN SAE 0.2 eu/dL Normal <1.1 [facility] Comment on above: Performed By: #### B MP #### [facility] ([id number]) [address], [address] [place] [address] MR KNEE LEFT WO IV CONTRASTo n 12-18-2023 MR KNEE LEFT WO IV CONTRAST Exam: MR KNEE LEFT WO IV CONTRAST History: Knee pain Technique: Multiplanar multisequence MRI of the knee was performed without contrast. Comparison: Radiographs November 26, 2023 Findings: Quadriceps and patellar tendons are intact. Small joint effusion. The trochlear groove is shallow. Tibial tuberosity to trochlear groove distance of approximately 19 mm. Patella mary jo. Edema within superolateral Hoffa's fat pad. Anterior and posterior cruciate ligaments are intact. The medial collateral ligament, lateral collateral ligament, and popliteus are intact. Complete radial tear of the anterior root of the lateral meniscus. Peripheral extrusion of the body of the lateral meniscus. The medial meniscus is intact. There are a few partial and full-thickness cartilage fissures of the median patellar ridge with a tiny focus of subcortical bone marrow edema. Popliteal fossa structures are intact. Thin Zacarias's cyst measures approximately 8.5 cm in craniocaudal length. IMPRESSION: Complete radial tear of the anterior root of the lateral meniscus. Findings predisposing to and suggesting patellar instability/maltracking. ELECTRONICALLY SIGNED BY: Bret Ang, DO Normal Not Available Comment on above: Order Comment: MRI L T knee w/o at [facility]. Orbits if needed. CBC AND AUTO DIFFon 10-16-19 24 ABSOLUTE BASOPHIL 0.1 X10E9/L Normal 0.0-0.2 [facility] Comment on above: Performed By: #### C PAVITHRA HAYNES, 6873-4 #### [facility] ([id number]) [address] [place] [address] ABSOLUTE NEUTROPHIL 7.4 X10E9/L High 1.5-6.6 [facility] Comment on above: Performed By: #### C PAVITHRA HAYNES, 6873-4 #### [facility] ([id number]) [address] [place] [address] Basophils/100 WBC (Bld) 0.7 % Normal [facility] Comment on above: Performed By: #### C PAVITHRA HAYNES, 734 #### [facility] ([id number]) [address] [place] [address] Eosinophils (Bld) [#/Vol] 0.0 10*3/uL Normal 0.0-0.4 [facility] Comment on above: Performed By: #### PAVITHRA Ayon BCA, 6872-08 #### [facility] ([id number]) [address] [place] [address] Eosinophils/100 WBC (Bld) 0.3 % Normal [facility] Comment on above: Performed By: #### PAVITHRA Ayon BCA, 4 #### [facility] ([id number]) [address] [place] [address] Erythrocyte distribution width (RBC) [Ratio] 14.2 % Normal 11.5-15.0 [facility] Comment on above: Performed By: #### PAVITHRA Ayon BCA, 6872-08 #### [facility] ([id number]) [address] [place] [address] Hematocrit (Bld) [Volume fraction] 37.8 % Normal 35-47 [facility] Comment on above: Performed By: #### PAVITHRA Ayon BCA, 734 #### [facility] ([id number]) [address] [place] [address] Hemoglobin (Bld) [Mass/Vol] 13.2 g/dL Normal 11.7-15.5 [facility] Comment on above: Performed By: #### PAVITHRA Ayon BCA, 734 #### [facility] ([id number]) [address] [place] [address]775 Lymphocytes (Bld) [#/Vol] 1.3 10*3/uL Normal 1.0-3.5 [facility] Comment on above: Performed By: #### PAVITHRA Ayon BCA, 4 #### [facility] ([id number]) [address] [place] [address] 76106 Lymphocytes/100 WBC (Bld) 14.5 % Normal [facility] Comment on above: Performed By: #### C PAVITHRA HAYENS, 6872-08 #### [facility] ([id number]) [address] [place] [address] 11414 MCH (RBC) [Entitic mass] 30.3 pg Normal 27-34 [facility] Comment on above: Performed By: #### PAVITHRA Ayon BCA, 6872-08 #### [facility] ([id number]) [address] [place] [address] 88573 MCHC (RBC) [Mass/Vol] 34.9 g/dL Normal 32-36 [facility] Comment on above: Performed By: #### PAVITHRA Ayon BCA, 6872-08 #### [facility] ([id number]) [address] [place] [address]46 MCV (RBC) [Entitic vol] 87 fL Normal 80-100 [facility] Comment on above: Performed By: #### PAVITHRA Ayon BCA, 6872-08 #### [facility] ([id number]) [address] [place] [address] 25749 Monocytes (Bld) [#/Vol] 0.3 10*3/uL Normal 0-0.9 [facility] Comment on above: Performed By: #### PAVITHRA Ayon BCA, 6872-08 #### [facility] ([id number]) [address] [place] [address]34 Monocytes/100 WBC (Bld) 2.8 % Normal [facility] Comment on above: Performed By: #### PAVITHRA Ayon BCA, 73 #### [facility] ([id number]) [address] [place] [address] 69544 Neutrophils/100 WBC (Bld) 81.7 % Normal [facility] Comment on above: Performed By: #### PAVITHRA Ayon BCA, 6873-4 #### [facility] ([id number]) [address] [place] [address] 36712 Platelet mean volume (Bld) [Entitic vol] 7.7 fL Normal 7-12 [facility] Comment on above: Performed By: #### PAVITHRA Ayon BCA, 73-4 #### [facility] ([id number]) [address] [place] [address] 40888 Platelets (Bld) [#/Vol] 407 10*3/uL Normal 150-450 [facility] Comment on above: Performed By: #### PAVITHRA Ayon BCA, 6873-4 #### [facility] ([id number]) [address] [place] [address] 87000 RBC COUNT 4.36 X10E12/L Normal 3.80-5.20 [facility] Comment on above: Performed By: #### PAVITHRA Ayon BCA, 6873-4 #### [facility] ([id number]) [address] [place] [address] 80943 WBC (Bld) [#/Vol] 9.1 10*3/uL Normal 4.0-11.0 [facility] Comment on above: Performed By: #### PAVITHRA Ayon BCA, 6873-4 #### [facility] ([id number]) [address] [place] [address]199 COMPREHENSIVE METABOLIC PANE Pee 10-16-2023 Albumin [Mass/Vol] 4.7 g/dL Normal 3.2-5.3 [facility] Comment on above: Performed By: #### PAVITHRA Ayon BCA, 6873-4 #### [facility] ([id number]) [address] [place] [address] 18366 ALP [Catalytic activity/Vol] 60 U/L Normal 39-130 [facility] Comment on above: Performed By: #### PAVITHRA Ayon BCA, 6873-4 #### [facility] ([id number]) [address] [place] [address] 95456 ALT [Catalytic activity/Vol] 58 U/L High 0-31 [facility] Comment on above: Performed By: #### PAVITHRA Ayon BCA, 73-4 #### [facility] ([id number]) [address] [place] [address] 18390 Anion gap [Moles/Vol] 12 mmol/L Normal 5-15 [facility] Comment on above: Performed By: #### PAVITHRA Ayon BCA, 73-4 #### [facility] ([id number]) [address] [place] [address] 87706 AST [Catalytic activity/Vol] 38 U/L Normal 0-41 [facility] Comment on above: Performed By: #### PAVITHRA Ayon BCA, 6873-4 #### [facility] ([id number]) [address] [place] [address] 76849 Bilirubin [Mass/Vol] 0.4 mg/dL Normal 0.3-1.2 [facility] Comment on above: Performed By: #### PAVITHRA Ayon BCA, 6873-4 #### [facility] ([id number]) [address] [place] [address] 31141 Calcium [Mass/Vol] 9.4 mg/dL Normal 8.5-10.5 [facility] Comment on above: Performed By: #### C PAVITHRA HAYNES, 6873-4 #### [facility] ([id number]) [address] [place] [address] 17217 Chloride [Moles/Vol] 106 mmol/L Normal 98-109 [facility] Comment on above: Performed By: #### PAVITHRA Ayon BCA, 6873-4 #### [facility] ([id number]) [address] [place] [address] 69113 CO2 [Moles/Vol] 17 mmol/L Low 22-32 [facility] Comment on above: Performed By: #### C PAVITHRA HAYNES, 6873-4 #### [facility] ([id number]) [address] [place] [address] 41048 Creatinine [Mass/Vol] 0.85 mg/dL Normal 0.40-1.00 [facility] Comment on above: Result Comment: METH OD TRACEABLE TO IDMS STANDARD Performed By: #### C PAVITHRA HAYNES, 6873-4 #### [facility] ([id number]) [address] [place] [address] 93654 eGFR (CKD-EPI) NON-RACE DEPENDENT >90 Normal >59 [facility] Comment on above: Result Comment: Reported eGFR is based on the CKD-EPI 2020 equation that does not use a race coefficient. Performed By: #### C PAVITHRA HAYNES, 6873-4 #### [facility] ([id number]) [address] [place] [address] 16119 Glucose [Mass/Vol] 254 mg/dL High 65-99 [facility] Comment on above: Performed By: #### PAVITHRA Ayon BCA, 6873-4 #### [facility] ([id number]) [address] [place] [address] 22132 Potassium [Moles/Vol] 3.6 mmol/L Normal 3.5-5.0 [facility] Comment on above: Performed By: #### C PAVITHRA HAYNES, 6873-4 #### [facility] ([id number]) [address] [place] [address] 08164 Protein [Mass/Vol] 8.1 g/dL High 6.0-8.0 [facility] Comment on above: Performed By: #### PAVITHRA Ayon BCA, 6873-4 #### [facility] ([id number]) [address] [facility], [place] [address] Sodium [Moles/Vol] 135 mmol/L Normal 134-146 [facility] Comment on above: Performed By: #### C DALLAS, PAVITHRA, 6873-4 #### [facility] ([id number]) [address] [place] [address] Urea nitrogen [Mass/Vol] 9 mg/dL Normal 5-23 [facility] Comment on above: Performed By: #### C DALLAS, PAVITHRA, 6873-4 #### [facility] ([id number]) [address] [place] [address] 50948 LIPASEon 10-16-2023 Lipase [Catalytic activity/Vol] 35 U/L Normal 17-40 [facility] Comment on above: Performed By: #### B MP #### [facility] ([id number]) [address] [place] [address], [address] [place] [address] Glucose Glucometer (BldC) [M ass/Vol]on 10-09-2023 Glucose [Mass/Vol] 142 mg/dL High 65-99 [facility] HCG ( test) Ql (U)o n 10-09-2023 Beta HCG ( test) Ql (U) Negative Normal NEG [facility] Comment on above: Performed By: #### 2 106-3 #### [facility] ([id number]) [address] [place] [address] Surgical Pathologyon 024 Surgical Pathology Normal [facility] Comment on above: Result Comment: [facility] [address] [place] [address] Surgical Pathology Consultation ADDENDUM MD Patient Name:XIANG MAHONEY:1990 (Age: 32)Gender:FTaken:4Reported:5/24/2024Physician(s):Rosanna James MD ([phone])Copy To: Rec. #:[id number]: #[id number] Final Pathologic Diagnosis 1. Duodenum, biopsy: Duodenal mucosa with no significant diagnostic abnormality. No evidence for celiac disease. 2. Stomach, biopsy: Gastric mucosa with mild reactive changes. No histological evidence of H. pylori infection on routine stain. 3. Distal esophagus at 36 cm, biopsy: Junctional mucosa with intestinal metaplasia. No evidence of dysplasia. 4. Distal esophagus at 34 cm, biopsy: Junctional mucosa with intestinal metaplasia. No evidence of dysplasia. 5. Right colon, random biopsy: Colonic mucosa with no significant diagnostic abnormalities. No evidence of microscopic colitis. 6. Left colon, random biopsy: Colonic mucosa with no significant diagnostic abnormalities. No evidence of microscopic colitis. Report Electronically Signed Out rg4Ralvarado Shelby MD Addendum (PHS) Date Reported: 11/13/2023 Results of [employer] dated 11/12/2023 are received from [facility] [place], [place]. Please see the complete report from [employer]. in the patient's electronic medical record. Electronically Signed Out Radha Shelby MD Interpretation performed at [facility], [address] [place] [address], License number: [id number]. Clinical History Nausea, vomiting, generalized abdominal pain, abnormal CT abdomen, chronic GERD, lower abdominal pain, diarrhea. Part 1 - R/O Celiac. Part 2 - R/O H. pylori. Part 3 and 4 - R/O Benitez's. Parts 5 and 6 - R/O IB and microscopic colitis. Gross Description 1. Received in formalin labeled MAHONEY, duodenum biopsy are six light alvarez soft tissue bits, 0.2-0.4 cm. The specimen is filtered and entirely submitted in a single cassette. (1, ns, [id number],m7) DM. 2. Received in formalin labeled [place], gastric biopsy are five light alvarez soft tissue bits, 0.1-0.5 cm. The specimen is filtered and entirely submitted in a single cassette. (1, ns, [id number],m7) DM. 3. Received in formalin labeled [place], distal esophageal biopsy at 36 are six light lavarez soft tissue bits, 0.1-0.5 cm. The specimen is filtered and entirely submitted in a single cassette. (1, ns, [id number],m7) DM. 4. Received in formalin labeled [place], distal esophageal biopsy at 34 are five light alvarez soft tissue bits, 0.1-0.3 cm. The specimen is filtered and entirely submitted in a single cassette. (1, ns, [id number],m7) DM. 5. Received in formalin labeled [place], right side random colon biopsy are six light alvarez soft tissue bits, 0.2-0.7 cm. The specimen is filtered and entirely submitted in a single cassette. (1, ns, [id number],m7) DM. 6. Received in formalin labeled [place], left side random colon biopsy are six light alvarez soft tissue bits, 0.2-0.4 cm. The specimen is filtered and entirely submitted in a single cassette. (1, ns, [id number],m7) DM. dm/10/09/2023NSK Specimen(s) Received 1: Duodenum biopsy 2: Gastric biopsy 3: Esophageal distal biopsy @36 4: Esophageal distal biopsy @34 5: Random colon biopsy, right side 6: Random colon biopsy, left side Fee Codes(s): 1; 94348 2; 53471 3; 44829 4; 41034 5; 37276 6; 25316 CBC AND AUTO DIFFon 08-24-19 24 ABSOLUTE BASOPHIL 0.0 X10E9/L Normal 0.0-0.2 [facility] Comment on above: Performed By: #### C BCA, BMP, 6873-4 #### [facility] ([id number]) [address] [place] [address] ABSOLUTE NEUTROPHIL 4.4 X10E9/L Normal 1.5-6.6 [facility] Comment on above: Performed By: #### PAVITHRA Ayon BCA, 6873-4 #### [facility] ([id number]) [address] [place] [address] 85441 Basophils/100 WBC (Bld) 0.4 % Normal [facility] Comment on above: Performed By: #### PAVITHRA Ayon BCA, 734 #### [facility] ([id number]) [address] [place] [address] 81239 Eosinophils (Bld) [#/Vol] 0.1 10*3/uL Normal 0.0-0.4 [facility] Comment on above: Performed By: #### PAVITHRA Ayon BCA, 734 #### [facility] ([id number]) [address] [place] [address] 27717 Eosinophils/100 WBC (Bld) 1.0 % Normal [facility] Comment on above: Performed By: #### PAVITHRA Ayon BCA, 734 #### [facility] ([id number]) [address] [place] [address] 32122 Erythrocyte distribution width (RBC) [Ratio] 14.2 % Normal 11.5-15.0 [facility] Comment on above: Performed By: #### PAVITHRA Ayon BCA, 73-4 #### [facility] ([id number]) [address] [place] [address] 54102 Hematocrit (Bld) [Volume fraction] 41.5 % Normal 35-47 [facility] Comment on above: Performed By: #### PAVITHRA Ayon BCA, 6873-4 #### [facility] ([id number]) [address] [place] [address] 68092 Hemoglobin (Bld) [Mass/Vol] 14.0 g/dL Normal 11.7-15.5 [facility] Comment on above: Performed By: #### C PAVITHRA HAYNES, 734 #### [facility] ([id number]) [address] [place] [address] 08705 Lymphocytes (Bld) [#/Vol] 2.0 10*3/uL Normal 1.0-3.5 [facility] Comment on above: Performed By: #### PAVITHRA Ayon BCA, 6872-08 #### [facility] ([id number]) [address] [place] [address] 79467 Lymphocytes/100 WBC (Bld) 28.4 % Normal [facility] Comment on above: Performed By: #### PAVITHRA Ayon BCA, 6872-08 #### [facility] ([id number]) [address] [place] [address] 59302 MCH (RBC) [Entitic mass] 30.1 pg Normal 27-34 [facility] Comment on above: Performed By: #### PAVITHRA Ayon BCA, 6872-08 #### [facility] ([id number]) [address] [place] [address] 25453 MCHC (RBC) [Mass/Vol] 33.7 g/dL Normal 32-36 [facility] Comment on above: Performed By: #### PAVITHRA Ayon BCA, 6872-08 #### [facility] ([id number]) [address] [place] [address] 92151 MCV (RBC) [Entitic vol] 89 fL Normal 80-100 [facility] Comment on above: Performed By: #### PAVITHRA Ayon BCA, 6872-08 #### [facility] ([id number]) [address] [place] [address] 70395 Monocytes (Bld) [#/Vol] 0.6 10*3/uL Normal 0-0.9 [facility] Comment on above: Performed By: #### PAVITHRA Ayon BCA, 6873-4 #### [facility] ([id number]) [address] [place] [address] 24879 Monocytes/100 WBC (Bld) 8.7 % Normal [facility] Comment on above: Performed By: #### PAVITHRA Ayon BCA, 6873-4 #### [facility] ([id number]) [address] [place] [address] 08379 Neutrophils/100 WBC (Bld) 61.5 % Normal [facility] Comment on above: Performed By: #### PAVITHRA Ayon BCA, 6873-4 #### [facility] ([id number]) [address] [place] [address] 82818 Platelet mean volume (Bld) [Entitic vol] 7.9 fL Normal 7-12 [facility] Comment on above: Performed By: #### PAVITHRA Ayon BCA, 6873-4 #### [facility] ([id number]) [address] [place] [address] 17960 Platelets (Bld) [#/Vol] 372 10*3/uL Normal 150-450 [facility] Comment on above: Performed By: #### PAVITHRA Ayon BCA, 6873-4 #### [facility] ([id number]) [address] [place] [address] 14210 RBC COUNT 4.65 X10E12/L Normal 3.80-5.20 [facility] Comment on above: Performed By: #### PAVITHRA Ayon BCA, 6873-4 #### [facility] ([id number]) [address] [place] [address] 92882 WBC (Bld) [#/Vol] 7.1 10*3/uL Normal 4.0-11.0 [facility] Comment on above: Performed By: #### PAVITHRA Ayon BCA, 6873-4 #### [facility] ([id number]) [address] [place] [address] 65861 COMPREHENSIVE METABOLIC PANE Pee 08-24-2023 Albumin [Mass/Vol] 4.5 g/dL Normal 3.2-5.3 [facility] Comment on above: Performed By: #### C PAVITHRA HAYNES, 6873-4 #### [facility] ([id number]) [address] [place] [address] 18478 ALP [Catalytic activity/Vol] 44 U/L Normal 39-130 [facility] Comment on above: Performed By: #### PAVITHRA Ayon BCA, 6873-4 #### [facility] ([id number]) [address] [place] [address] 90852 ALT [Catalytic activity/Vol] 39 U/L High 0-31 [facility] Comment on above: Performed By: #### PAVITHRA Ayon BCA, 6873-4 #### [facility] ([id number]) [address] [place] [address] 20915 Anion gap [Moles/Vol] 9 mmol/L Normal 5-15 [facility] Comment on above: Performed By: #### PAVITHRA Ayon BCA, 6873-4 #### [facility] ([id number]) [address] [place] [address] 42036 AST [Catalytic activity/Vol] 38 U/L Normal 0-41 [facility] Comment on above: Performed By: #### PAVITHRA Ayon BCA, 6873-4 #### [facility] ([id number]) [address] [place] [address] 13029 Bilirubin [Mass/Vol] 0.8 mg/dL Normal 0.3-1.2 [facility] Comment on above: Performed By: #### PAVITHRA Ayon BCA, 6873-4 #### [facility] ([id number]) [address] [place] [address] 72740 Calcium [Mass/Vol] 8.9 mg/dL Normal 8.5-10.5 [facility] Comment on above: Performed By: #### C PAVITHRA HAYNES, 6873-4 #### [facility] ([id number]) [address] [place] [address] 40355 Chloride [Moles/Vol] 103 mmol/L Normal 98-109 [facility] Comment on above: Performed By: #### C PAVITHRA HAYNES, 6873-4 #### [facility] ([id number]) [address] [place] [address] 87712 CO2 [Moles/Vol] 20 mmol/L Low 22-32 [facility] Comment on above: Performed By: #### C PAVITHRA HAYNES, 6873-4 #### [facility] ([id number]) [address] [place] [address] 94884 Creatinine [Mass/Vol] 0.84 mg/dL Normal 0.40-1.00 [facility] Comment on above: Result Comment: METH OD TRACEABLE TO IDMS STANDARD Performed By: #### C PAVITHRA HAYNES, 6873-4 #### [facility] ([id number]) [address] [place] [address] 81523 eGFR (CKD-EPI) NON-RACE DEPENDENT >90 Normal >59 [facility] Comment on above: Result Comment: Reported eGFR is based on the CKD-EPI 2020 equation that does not use a race coefficient. Performed By: #### C PAVITHRA HAYNES, 6873-4 #### [facility] ([id number]) [address] [place] [address] 16144 Glucose [Mass/Vol] 127 mg/dL High 65-99 [facility] Comment on above: Performed By: #### C PAVITHRA HAYNES, 6873-4 #### [facility] ([id number]) [address] [place] [address] 07638 Potassium [Moles/Vol] 3.8 mmol/L Normal 3.5-5.0 [facility] Comment on above: Performed By: #### C PAVITHRA HAYNES, 6873-4 #### [facility] ([id number]) [address] [place] [address] 65953 Protein [Mass/Vol] 7.5 g/dL Normal 6.0-8.0 [facility] Comment on above: Performed By: #### PAVITHRA Ayon BCA, 6873-4 #### [facility] ([id number]) [address] [place] [address] 45527 Sodium [Moles/Vol] 132 mmol/L Low 134-146 [facility] Comment on above: Performed By: #### PAVITHRA Ayon BCA, 6873-4 #### [facility] ([id number]) [address] [place] [address] 72589 Urea nitrogen [Mass/Vol] 10 mg/dL Normal 5-23 [facility] Comment on above: Performed By: #### PAVITHRA Ayon BCA, 6873-4 #### [facility] ([id number]) [address] [place] [address] 12930 Glucose Glucometer (BldC) [M ass/Vol]on 08-24-2023 Glucose [Mass/Vol] 121 mg/dL High 65-99 [facility] Glucose [Mass/Vol] 122 mg/dL High 65-99 [facility] MAGNESIUMon 08-24-2023 Magnesium [Mass/Vol] 2.2 mg/dL Normal 1.8-2.6 [facility] Comment on above: Performed By: #### PAVITHRA Ayon BCA, 6873-4 #### [facility] ([id number]) [address] [place] [address] 24165 Magnesium [Mass/Vol] 1.9 mg/dL Normal 1.8-2.6 [facility] Comment on above: Performed By: #### PAVITHRA Ayon BCA, 6873-4 #### [facility] ([id number]) [address] [place] [address] 74492 Magnesium Ionized ISE (Bld) [Moles/Vol]on 08-24-2023 Magnesium [Moles/Vol] 0.69 mmol/L Normal 0.45-0.74 [facility] Comment on above: Result Comment: NEW REFERENCE RANGE Performed By: #### PAVITHRA Ayon BCA, 6873-4 #### [facility] ([id number]) [address] [place] [address] 43768 CBC AND AUTO DIFFon 08-23-19 24 ABSOLUTE BASOPHIL 0.0 X10E9/L Normal 0.0-0.2 [facility] Comment on above: Performed By: #### PAVITHRA Ayon BCA, 734 #### [facility] ([id number]) [address] [place] [address] 67445 ABSOLUTE NEUTROPHIL 4.7 X10E9/L Normal 1.5-6.6 [facility] Comment on above: Performed By: #### PAVITHRA Ayon BCA, 4 #### [facility] ([id number]) [address] [place] [address] 91313 Basophils/100 WBC (Bld) 0.6 % Normal [facility] Comment on above: Performed By: #### PAVITHRA Ayon BCA, 734 #### [facility] ([id number]) [address] [place] [address] 74536 Eosinophils (Bld) [#/Vol] 0.0 10*3/uL Normal 0.0-0.4 [facility] Comment on above: Performed By: #### PAVITHRA Ayon BCA, 73-4 #### [facility] ([id number]) [address] [place] [address] 98385 Eosinophils/100 WBC (Bld) 0.4 % Normal [facility] Comment on above: Performed By: #### PAVITHRA Ayon BCA, 73-4 #### [facility] ([id number]) [address] [place] [address] 26915 Erythrocyte distribution width (RBC) [Ratio] 14.2 % Normal 11.5-15.0 [facility] Comment on above: Performed By: #### Nany HAYNES [facility], 73-4 #### [facility] ([id number]) [address] [place] [address] 04745 Hematocrit (Bld) [Volume fraction] 38.4 % Normal 35-47 [facility] Comment on above: Performed By: #### Nany HAYNES [facility], 73 #### [facility] ([id number]) [address] [place] [address] 18343 Hemoglobin (Bld) [Mass/Vol] 13.1 g/dL Normal 11.7-15.5 [facility] Comment on above: Performed By: #### Nany HAYNES [facility], 6872-08 #### [facility] ([id number]) [address] [place] [address] 58048 Lymphocytes (Bld) [#/Vol] 2.1 10*3/uL Normal 1.0-3.5 [facility] Comment on above: Performed By: #### Nany HAYNES [facility], 734 #### [facility] ([id number]) [address] [place] [address] 57714 Lymphocytes/100 WBC (Bld) 27.6 % Normal [facility] Comment on above: Performed By: #### Nany HAYNES [facility], 734 #### [facility] ([id number]) [address] [place] [address] 15100 MCH (RBC) [Entitic mass] 30.6 pg Normal 27-34 [facility] Comment on above: Performed By: #### Nany HAYNES [facility], 73-4 #### [facility] ([id number]) [address] [place] [address] 97245 MCHC (RBC) [Mass/Vol] 34.2 g/dL Normal 32-36 [facility] Comment on above: Performed By: #### PAVITHRA Ayon BCA, 734 #### [facility] ([id number]) [address] [place] [address] 09803 MCV (RBC) [Entitic vol] 90 fL Normal 80-100 [facility] Comment on above: Performed By: #### PAVITHRA Ayon BCA, 6872-08 #### [facility] ([id number]) [address] [place] [address] 58692 Monocytes (Bld) [#/Vol] 0.7 10*3/uL Normal 0-0.9 [facility] Comment on above: Performed By: #### PAVITHRA Ayon BCA, 734 #### [facility] ([id number]) [address] [place] [address] 02444 Monocytes/100 WBC (Bld) 8.8 % Normal [facility] Comment on above: Performed By: #### PAVITHRA Ayon BCA, 4 #### [facility] ([id number]) [address] [place] [address] 20837 Neutrophils/100 WBC (Bld) 62.6 % Normal [facility] Comment on above: Performed By: #### PAVITHRA Ayon BCA, 6872-08 #### [facility] ([id number]) [address] [place] [address] 56649 Platelet mean volume (Bld) [Entitic vol] 7.9 fL Normal 7-12 [facility] Comment on above: Performed By: #### PAVITHRA Ayon BCA, 73 #### [facility] ([id number]) [address] [place] [address] 69468 Platelets (Bld) [#/Vol] 374 10*3/uL Normal 150-450 [facility] Comment on above: Performed By: #### PAVITHRA Ayon BCA, 73 #### [facility] ([id number]) [address] [place] [address] 00029 RBC COUNT 4.29 X10E12/L Normal 3.80-5.20 [facility] Comment on above: Performed By: #### C DALLAS BMP, 6873-4 #### [facility] ([id number]) [address] [place] [address] 83974 WBC (Bld) [#/Vol] 7.5 10*3/uL Normal 4.0-11.0 [facility] Comment on above: Performed By: #### PAVITHRA Ayon BCA, 6873-4 #### [facility] ([id number]) [address] [place] [address] 20706 COMPREHENSIVE METABOLIC PANE Pee 08-23-2023 Albumin [Mass/Vol] 4.3 g/dL Normal 3.2-5.3 [facility] Comment on above: Performed By: #### Nany HAYNES BMP, 6873-4 #### [facility] ([id number]) [address] [place] [address] 03468 ALP [Catalytic activity/Vol] 40 U/L Normal 39-130 [facility] Comment on above: Performed By: #### Nany HAYNES BMP, 6873-4 #### [facility] ([id number]) [address] [place] [address] 64370 ALT [Catalytic activity/Vol] 36 U/L High 0-31 [facility] Comment on above: Performed By: #### Nany HAYNES, BMP, 6873-4 #### [facility] ([id number]) [address] [place] [address] 64867 Anion gap [Moles/Vol] 9 mmol/L Normal 5-15 [facility] Comment on above: Performed By: #### Nany HAYNES, BMP, 6873-4 #### [facility] ([id number]) [address] [place] [address] 87308 AST [Catalytic activity/Vol] 34 U/L Normal 0-41 [facility] Comment on above: Performed By: #### PAVITHRA Ayon BCA, 6873-4 #### [facility] ([id number]) [address] [place] [address] 03556 Bilirubin [Mass/Vol] 0.7 mg/dL Normal 0.3-1.2 [facility] Comment on above: Performed By: #### C PAVITHRA HAYNES, 73-4 #### [facility] ([id number]) [address] [place] [address] 79747 Calcium [Mass/Vol] 8.8 mg/dL Normal 8.5-10.5 [facility] Comment on above: Performed By: #### PAVITHRA Ayon BCA, 73-4 #### [facility] ([id number]) [address] [place] [address] 17725 Chloride [Moles/Vol] 103 mmol/L Normal 98-109 [facility] Comment on above: Performed By: #### PAVITHRA Ayon BCA, 6873-4 #### [facility] ([id number]) [address] [place] [address] 36150 CO2 [Moles/Vol] 20 mmol/L Low 22-32 [facility] Comment on above: Performed By: #### PAVITHRA Ayon BCA, 73-4 #### [facility] ([id number]) [address] [place] [address] 86170 Creatinine [Mass/Vol] 0.76 mg/dL Normal 0.40-1.00 [facility] Comment on above: Result Comment: METH OD TRACEABLE TO IDMS STANDARD Performed By: #### C PAVITHRA HAYNES, 6873-4 #### [facility] ([id number]) [address] [place] [address] 75326 eGFR (CKD-EPI) NON-RACE DEPENDENT >90 Normal >59 [facility] Comment on above: Result Comment: Reported eGFR is based on the CKD-EPI 2020 equation that does not use a race coefficient. Performed By: #### C PAVITHRA HAYNES, 6873-4 #### [facility] ([id number]) [address] [place] [address] 26357 Glucose [Mass/Vol] 139 mg/dL High 65-99 [facility] Comment on above: Performed By: #### PAVITHRA Ayon BCA, 6873-4 #### [facility] ([id number]) [address] [place] [address] 69560 Potassium [Moles/Vol] 3.7 mmol/L Normal 3.5-5.0 [facility] Comment on above: Performed By: #### PAVITHRA Ayon BCA, 6873-4 #### [facility] ([id number]) [address] [place] [address] 73596 Protein [Mass/Vol] 7.3 g/dL Normal 6.0-8.0 [facility] Comment on above: Performed By: #### PAVITHRA Ayon BCA, 6873-4 #### [facility] ([id number]) [address] [place] [address] 80068 Sodium [Moles/Vol] 132 mmol/L Low 134-146 [facility] Comment on above: Performed By: #### PAVITHRA Ayon BCA, 6873-4 #### [facility] ([id number]) [address] [place] [address] 86013 Urea nitrogen [Mass/Vol] 9 mg/dL Normal 5-23 [facility] Comment on above: Performed By: #### PAVITHRA Ayon BCA, 6873-4 #### [facility] ([id number]) [address] [place] [address] 93246 Glucose Glucometer (BldC) [M ass/Vol]on 08-23-2023 Glucose [Mass/Vol] 103 mg/dL High 65-99 [facility] Glucose [Mass/Vol] 109 mg/dL High 65-99 [facility] Glucose [Mass/Vol] 164 mg/dL High 65-99 [facility] Glucose [Mass/Vol] 113 mg/dL High 65-99 [facility] MAGNESIUMon 08-23-2023 Magnesium [Mass/Vol] 2.3 mg/dL Normal 1.8-2.6 [facility] Comment on above: Performed By: #### C DALLAS [facility], 6873-4 #### [facility] ([id number]) [address] [place] [address] 67511 Magnesium [Mass/Vol] 1.9 mg/dL Normal 1.8-2.6 [facility] Comment on above: Performed By: #### Nany HAYNES [facility], 6873-4 #### [facility] ([id number]) [address] [place] [address] 47448 POTASSIUMon 08-23-2023 Potassium [Moles/Vol] 3.9 mmol/L Normal 3.5-5.0 [facility] Comment on above: Performed By: #### Nany HAYNES [facility], 6873-4 #### [facility] ([id number]) [address] [place] [address] 56473 CBC AND AUTO DIFFon 08-22-19 24 ABSOLUTE BASOPHIL 0.1 X10E9/L Normal 0.0-0.2 [facility] Comment on above: Performed By: #### V BG #### [facility] ([id number]) [address] [place] [address] 43656 ABSOLUTE NEUTROPHIL 5.7 X10E9/L Normal 1.5-6.6 [facility] Comment on above: Performed By: #### V BG #### [facility] ([id number]) [address] [place] [address] 46731 Basophils/100 WBC (Bld) 0.8 % Normal [facility] Comment on above: Performed By: #### V BG #### [facility] ([id number]) [address] [place] [address] 87020 Eosinophils (Bld) [#/Vol] 0.0 10*3/uL Normal 0.0-0.4 [facility] Comment on above: Performed By: #### V BG #### [facility] ([id number]) [address] [place] [address] 41014 Eosinophils/100 WBC (Bld) 0.2 % Normal [facility] Comment on above: Performed By: #### V BG #### [facility] ([id number]) [address] [place] [address] 24440 Erythrocyte distribution width (RBC) [Ratio] 13.8 % Normal 11.5-15.0 [facility] Comment on above: Performed By: #### V BG #### [facility] ([id number]) [address] [place] [address] 08947 Hematocrit (Bld) [Volume fraction] 39.3 % Normal 35-47 [facility] Comment on above: Performed By: #### V BG #### [facility] ([id number]) [address] [place] [address] 00553 Hemoglobin (Bld) [Mass/Vol] 13.3 g/dL Normal 11.7-15.5 [facility] Comment on above: Performed By: #### V BG #### [facility] ([id number]) [address] [place] [address] 89865 Lymphocytes (Bld) [#/Vol] 1.9 10*3/uL Normal 1.0-3.5 [facility] Comment on above: Performed By: #### V BG #### [facility] ([id number]) [address] [place] [address] 83499 Lymphocytes/100 WBC (Bld) 22.9 % Normal [facility] Comment on above: Performed By: #### V BG #### [facility] ([id number]) [address] [place] [address] 21123 MCH (RBC) [Entitic mass] 30.1 pg Normal 27-34 [facility] Comment on above: Performed By: #### V BG #### [facility] ([id number]) [address] [place] [address] 72414 MCHC (RBC) [Mass/Vol] 33.7 g/dL Normal 32-36 [facility] Comment on above: Performed By: #### V BG #### [facility] ([id number]) [address] [place] [address] 97753 MCV (RBC) [Entitic vol] 89 fL Normal 80-100 [facility] Comment on above: Performed By: #### V BG #### [facility] ([id number]) [address] [place] [address] 61289 Monocytes (Bld) [#/Vol] 0.8 10*3/uL Normal 0-0.9 [facility] Comment on above: Performed By: #### V BG #### [facility] ([id number]) [address] [place] [address] 31168 Monocytes/100 WBC (Bld) 9.0 % Normal [facility] Comment on above: Performed By: #### V BG #### [facility] ([id number]) [address] [place] [address] 10746 Neutrophils/100 WBC (Bld) 67.1 % Normal [facility] Comment on above: Performed By: #### V BG #### [facility] ([id number]) [address] [place] [address] 47389 Platelet mean volume (Bld) [Entitic vol] 7.8 fL Normal 7-12 [facility] Comment on above: Performed By: #### V BG #### [facility] ([id number]) [address] [place] [address] 48718 Platelets (Bld) [#/Vol] 404 10*3/uL Normal 150-450 [facility] Comment on above: Performed By: #### V BG #### [facility] ([id number]) [address] [place] [address] 86724 RBC COUNT 4.41 X10E12/L Normal 3.80-5.20 [facility] Comment on above: Performed By: #### V BG #### [facility] ([id number]) [address] [place] [address] 99430 WBC (Bld) [#/Vol] 8.5 10*3/uL Normal 4.0-11.0 [facility] Comment on above: Performed By: #### V BG #### [facility] ([id number]) [address] [place] [address] 18508 COMPREHENSIVE METABOLIC PANE Pee 08-22-2023 Albumin [Mass/Vol] 4.6 g/dL Normal 3.2-5.3 [facility] Comment on above: Performed By: #### V BG #### [facility] ([id number]) [address] [place] [address] 30814 ALP [Catalytic activity/Vol] 42 U/L Normal 39-130 [facility] Comment on above: Performed By: #### V BG #### [facility] ([id number]) [address] [place] [address] 16305 ALT [Catalytic activity/Vol] 38 U/L High 0-31 [facility] Comment on above: Performed By: #### V BG #### [facility] ([id number]) [address] [place] [address], [place] [address] Anion gap [Moles/Vol] 11 mmol/L Normal 5-15 [facility] Comment on above: Performed By: #### V BG #### [facility] ([id number]) [address] [place] [address] 17158 AST [Catalytic activity/Vol] 39 U/L Normal 0-41 [facility] Comment on above: Performed By: #### V BG #### [facility] ([id number]) [address] [place] [address] 26951 Bilirubin [Mass/Vol] 0.6 mg/dL Normal 0.3-1.2 [facility] Comment on above: Performed By: #### V BG #### [facility] ([id number]) [address] [place] [address] 97712 Calcium [Mass/Vol] 8.7 mg/dL Normal 8.5-10.5 [facility] Comment on above: Performed By: #### V BG #### [facility] ([id number]) [address] [place] [address] 71769 Chloride [Moles/Vol] 104 mmol/L Normal 98-109 [facility] Comment on above: Performed By: #### V BG #### [facility] ([id number]) [address] [place] [address] 16763 CO2 [Moles/Vol] 21 mmol/L Low 22-32 [facility] Comment on above: Performed By: #### V BG #### [facility] ([id number]) [address] [place] [address] 85466 Creatinine [Mass/Vol] 0.84 mg/dL Normal 0.40-1.00 [facility] Comment on above: Result Comment: METH OD TRACEABLE TO IDMS STANDARD Performed By: #### V BG #### [facility] ([id number]) [address] [place] [address] 72504 eGFR (CKD-EPI) NON-RACE DEPENDENT >90 Normal >59 [facility] Comment on above: Result Comment: Reported eGFR is based on the CKD-EPI 2020 equation that does not use a race coefficient. Performed By: #### V BG #### [facility] ([id number]) [address] [place] [address] [id number] Glucose [Mass/Vol] 135 mg/dL High 65-99 [facility] Comment on above: Performed By: #### V BG #### [facility] ([id number]) [address] [place] [address] [id number] Potassium [Moles/Vol] 3.3 mmol/L Low 3.5-5.0 [facility] Comment on above: Performed By: #### V BG #### [facility] ([id number]) [address] [place] [address] [id number] Protein [Mass/Vol] 7.7 g/dL Normal 6.0-8.0 [facility] Comment on above: Performed By: #### V BG #### [facility] ([id number]) [address] [place] [address] [id number] Sodium [Moles/Vol] 136 mmol/L Normal 134-146 [facility] Comment on above: Performed By: #### V BG #### [facility] ([id number]) [address] [place] [address] [id number] Urea nitrogen [Mass/Vol] 9 mg/dL Normal 5-23 [facility] Comment on above: Performed By: #### V BG #### [facility] ([id number]) [address] [place] [address] [id number] Glucose Glucometer (BldC) [M ass/Vol]on 08-22-2023 Glucose [Mass/Vol] 144 mg/dL High 65-99 [facility] Glucose [Mass/Vol] 123 mg/dL High 65-99 [facility] Glucose [Mass/Vol] 128 mg/dL High 65-99 [facility] Glucose [Mass/Vol] 151 mg/dL High 65-99 [facility] MAGNESIUMon 08-22-2023 Magnesium [Mass/Vol] 2.7 mg/dL High 1.8-2.6 [facility] Comment on above: Performed By: #### V BG #### [facility] ([id number]) [address] [place] [address] [id number] POTASSIUMon 08-22-2023 Potassium [Moles/Vol] 3.5 mmol/L Normal 3.5-5.0 [facility] Comment on above: Performed By: #### C [facility], [facility], 6873-4 #### [facility] ([id number]) [address] [place] [address] 82154 Potassium [Moles/Vol] 3.5 mmol/L Normal 3.5-5.0 [facility] Comment on above: Performed By: #### V BG #### [facility] ([id number]) [address] [place] [address] 72875 COMPREHENSIVE METABOLIC PANE Pee 08-21-2023 Albumin [Mass/Vol] 4.4 g/dL Normal 3.2-5.3 [facility] Comment on above: Performed By: #### N UM #### [facility] ([id number]) [address] [place] [address] 93485 ALP [Catalytic activity/Vol] 43 U/L Normal 39-130 [facility] Comment on above: Performed By: #### N UM #### [facility] ([id number]) [address] [place] [address] 94172 ALT [Catalytic activity/Vol] 36 U/L High 0-31 [facility] Comment on above: Performed By: #### N UM #### [facility] ([id number]) [address] [place] [address] 05714 Anion gap [Moles/Vol] 10 mmol/L Normal 5-15 [facility] Comment on above: Performed By: #### N UM #### [facility] ([id number]) [address] [place] [address] 16576 AST [Catalytic activity/Vol] 32 U/L Normal 0-41 [facility] Comment on above: Performed By: #### N UM #### [facility] ([id number]) [address] [place] [address] 40841 Bilirubin [Mass/Vol] 0.7 mg/dL Normal 0.3-1.2 [facility] Comment on above: Performed By: #### N UM #### [facility] ([id number]) [address] [place] [address] 60435 Calcium [Mass/Vol] 8.9 mg/dL Normal 8.5-10.5 [facility] Comment on above: Performed By: #### N UM #### [facility] ([id number]) [address] [place] [address] 37899 Chloride [Moles/Vol] 105 mmol/L Normal 98-109 [facility] Comment on above: Performed By: #### N UM #### [facility] ([id number]) [address] [place] [address] 53843 CO2 [Moles/Vol] 19 mmol/L Low 22-32 [facility] Comment on above: Performed By: #### N UM #### [facility] ([id number]) [address] [place] [address] 96516 Creatinine [Mass/Vol] 0.77 mg/dL Normal 0.40-1.00 [facility] Comment on above: Result Comment: METH OD TRACEABLE TO IDMS STANDARD Performed By: #### N UM #### [facility] ([id number]) [address] [place] [address] 22152 eGFR (CKD-EPI) NON-RACE DEPENDENT >90 Normal >59 [facility] Comment on above: Result Comment: Reported eGFR is based on the CKD-EPI 2020 equation that does not use a race coefficient. Performed By: #### N UM #### [facility] ([id number]) [address] [place] [address] 05187 Glucose [Mass/Vol] 167 mg/dL High 65-99 [facility] Comment on above: Performed By: #### N UM #### [facility] ([id number]) [address] [place] [address] 66633 Potassium [Moles/Vol] 3.1 mmol/L Low 3.5-5.0 [facility] Comment on above: Performed By: #### N UM #### [facility] ([id number]) [address] [place] [address] 48089 Protein [Mass/Vol] 7.7 g/dL Normal 6.0-8.0 [facility] Comment on above: Performed By: #### N UM #### [facility] ([id number]) [address] [place] [address] 86173 Sodium [Moles/Vol] 134 mmol/L Normal 134-146 [facility] Comment on above: Performed By: #### N UM #### [facility] ([id number]) [address] [place] [address] 78709 Urea nitrogen [Mass/Vol] 8 mg/dL Normal 5-23 [facility] Comment on above: Performed By: #### N UM #### [facility] ([id number]) [address] [place] [address] 41024 Glucose Glucometer (BldC) [M ass/Vol]on 08-21-2023 Glucose [Mass/Vol] 134 mg/dL High 65-99 [facility] Glucose [Mass/Vol] 146 mg/dL High 65-99 [facility] Glucose [Mass/Vol] 157 mg/dL High 65-99 [facility] Lactate (P remy) [Moles/Vol]o n 08-21-2023 Lactate [Moles/Vol] 1.2 mmol/L Normal 0.4-2.0 [facility] Comment on above: Performed By: #### N UM #### [facility] ([id number]) [address] [place] [address] 97958 MAGNESIUMon 08-21-2023 Magnesium [Mass/Vol] 1.7 mg/dL Low 1.8-2.6 [facility] Comment on above: Performed By: #### N UM #### [facility] ([id number]) [address] [place] [address] 50774 URN MACROSCOPIC NURon 2023 BILIRUBIN SAE Negative Normal NEG [facility] Comment on above: Performed By: #### N UM #### [facility] ([id number]) [address] [place] [address] 28524 BLOOD/HGB SAE Negative Normal NEG [facility] Comment on above: Performed By: #### N UM #### [facility] ([id number]) [address] [place] [address] 97426 GLUCOSE SAE Negative Normal NEG [facility] Comment on above: Performed By: #### N UM #### [facility] ([id number]) [address] [place] [address] [place] [address] KETONES SAE 40 mg/dL Abnormal NEG [facility] Comment on above: Performed By: #### N UM #### [facility] ([id number]) [address] [place] [address] [place] [address] LEUKOCYTE ESTERASE SAE Negative Normal NEG [facility] Comment on above: Performed By: #### N UM #### [facility] ([id number]) [address] [place] [address] 89981 NITRITE SAE Negative Normal NEG [facility] Comment on above: Performed By: #### N UM #### [facility] ([id number]) [address] [place] [address] 53018 PH SAE 8.5 Normal 5.0-8.5 [facility] Comment on above: Performed By: #### N UM #### [facility] ([id number]) [address] [place] [address] 77761 PROTEIN SAE Trace Abnormal NEG [facility] Comment on above: Performed By: #### N UM #### [facility] ([id number]) [address] [place] [address] 45761 SPECIFIC GRAVITY SAE 1.015 Normal 1.003-[address] [place] [address] Comment on above: Performed By: #### N UM #### [facility] ([id number]) [address] [place] [address] 27377 UROBILINOGEN SAE 0.2 eu/dL Normal <1.1 [facility] Comment on above: Performed By: #### N UM #### [facility] ([id number]) [address] [place] [address] 36102 CBC AND AUTO DIFFon 08-20-19 24 ABSOLUTE BASOPHIL 0.0 X10E9/L Normal 0.0-0.2 [facility] Comment on above: Performed By: #### C BCA, CMP, 3040-3, 55153-9, 33448-0 ####[facility] ([id number])[address] [place] [address] 78218 ABSOLUTE NEUTROPHIL 5.6 X10E9/L Normal 1.5-6.6 [facility] Comment on above: Performed By: #### C BCA, CMP, 3040-3, , 82481-8 ####[facility] ([id number])[address] [place] [address] 87245 Basophils/100 WBC (Bld) 0.5 % Normal [facility] Comment on above: Performed By: #### C BCA, CMP, 3, , 49149-3 ####[facility] ([id number])[address] [place] [address] 89115 Eosinophils (Bld) [#/Vol] 0.0 10*3/uL Normal 0.0-0.4 [facility] Comment on above: Performed By: #### C DALLAS, CMP, 3039-07, , 17092-3 ####[facility] ([id number])[address] [place] [address] 91709 Eosinophils/100 WBC (Bld) 0.1 % Normal [facility] Comment on above: Performed By: #### C DALLAS, CMP, 3039-07, , 43249-7 ####[facility] ([id number])[address] [place] [address] 56285 Erythrocyte distribution width (RBC) [Ratio] 13.6 % Normal 11.5-15.0 [facility] Comment on above: Performed By: #### C DALLAS, CMP, 3, , 66615-9 ####[facility] ([id number])[address] [place] [address] 28572 Hematocrit (Bld) [Volume fraction] 37.8 % Normal 35-47 [facility] Comment on above: Performed By: #### C BCA, CMP, 3, , 08779-7 ####[facility] ([id number])[address] [place] [address] 30897 Hemoglobin (Bld) [Mass/Vol] 12.9 g/dL Normal 11.7-15.5 [facility] Comment on above: Performed By: #### C BCA, CMP, 3040-3, 94838-5, 00514-7 ####[facility] ([id number])[address] [place] [address] 29631 Lymphocytes (Bld) [#/Vol] 1.2 10*3/uL Normal 1.0-3.5 [facility] Comment on above: Performed By: #### C BCA, CMP, 3040-3, , 60239-5 ####[facility] ([id number])[address] [place] [address] 81145 Lymphocytes/100 WBC (Bld) 16.1 % Normal [facility] Comment on above: Performed By: #### C BCA, CMP, 3040-3, , 11071-2 ####[facility] ([id number])[address] [place] [address] 62133 MCH (RBC) [Entitic mass] 30.5 pg Normal 27-34 [facility] Comment on above: Performed By: #### C BCA, CMP, 3040-3, , 34867-3 ####[facility] ([id number])[address] [place] [address] 52859 MCHC (RBC) [Mass/Vol] 34.3 g/dL Normal 32-36 [facility] Comment on above: Performed By: #### C BCA, CMP, 3040-3, , 33115-4 ####[facility] ([id number])[address] [place] [address] 67073 MCV (RBC) [Entitic vol] 89 fL Normal 80-100 [facility] Comment on above: Performed By: #### C BCA, CMP, 3040-3, , 85432-7 ####[facility] ([id number])[address] [place] [address] 80399 Monocytes (Bld) [#/Vol] 0.3 10*3/uL Normal 0-0.9 [facility] Comment on above: Performed By: #### C BCA, CMP, 3040-3, 88106-3, 06716-6 ####[facility] ([id number])[address] [place] [address] 13078 Monocytes/100 WBC (Bld) 4.6 % Normal [facility] Comment on above: Performed By: #### C DALLAS, CMP, 3040-3, 39867-6, 78191-1 ####[facility] ([id number])[address] [place] [address] 26464 Neutrophils/100 WBC (Bld) 78.7 % Normal [facility] Comment on above: Performed By: #### Nany BCA, CMP, 3040-3, , 80840-5 ####[facility] ([id number])[address] [place] [address] 57489 Platelet mean volume (Bld) [Entitic vol] 7.9 fL Normal 7-12 [facility] Comment on above: Performed By: #### Nany HAYNES, CMP, 3040-3, 45223-3, 65270-2 ####[facility] ([id number])[address] [place] [address] 11407 Platelets (Bld) [#/Vol] 369 10*3/uL Normal 150-450 [facility] Comment on above: Performed By: #### Nany BCA, CMP, 3040-3, 42934-4, 59243-8 ####[facility] ([id number])[address] [place] [address] 71955 RBC COUNT 4.25 X10E12/L Normal 3.80-5.20 [facility] Comment on above: Performed By: #### Nany BCA, CMP, 3040-3, 66052-0, 46670-8 ####[facility] ([id number])[address] [place] [address] 27723 WBC (Bld) [#/Vol] 7.2 10*3/uL Normal 4.0-11.0 [facility] Comment on above: Performed By: #### C BCA, CMP, 3040-3, 57166-7, 51865-4 ####[facility] ([id number])[address] [place] [address] [place] [address] COMPREHENSIVE METABOLIC PANE Pee 08-20-2023 Albumin [Mass/Vol] 4.7 g/dL Normal 3.2-5.3 [facility] Comment on above: Performed By: #### N UM #### [facility] ([id number]) [address] [place] [address] 22140 ALP [Catalytic activity/Vol] 44 U/L Normal 39-130 [facility] Comment on above: Performed By: #### N UM #### [facility] ([id number]) [address] [place] [address] 34788 ALT [Catalytic activity/Vol] 43 U/L High 0-31 [facility] Comment on above: Performed By: #### N UM #### [facility] ([id number]) [address] [place] [address] 29622 Anion gap [Moles/Vol] 9 mmol/L Normal 5-15 [facility] Comment on above: Performed By: #### N UM #### [facility] ([id number]) [address] [place] [address] 01116 AST [Catalytic activity/Vol] 36 U/L Normal 0-41 [facility] Comment on above: Performed By: #### N UM #### [facility] ([id number]) [address] [place] [address] 92695 Bilirubin [Mass/Vol] 0.8 mg/dL Normal 0.3-1.2 [facility] Comment on above: Performed By: #### N UM #### [facility] ([id number]) [address] [place] [address] 01752 Calcium [Mass/Vol] 9.5 mg/dL Normal 8.5-10.5 [facility] Comment on above: Performed By: #### N UM #### [facility] ([id number]) [address] [place] [address] 99806 Chloride [Moles/Vol] 105 mmol/L Normal 98-109 [facility] Comment on above: Performed By: #### N UM #### [facility] ([id number]) [address] [place] [address] 69604 CO2 [Moles/Vol] 20 mmol/L Low 22-32 [facility] Comment on above: Performed By: #### N UM #### [facility] ([id number]) [address] [place] [address] 68217 Creatinine [Mass/Vol] 0.89 mg/dL Normal 0.40-1.00 [facility] Comment on above: Result Comment: METH OD TRACEABLE TO IDMS STANDARD Performed By: #### N UM #### [facility] ([id number]) [address] [place] [address] 79486 GFR/1.73 sq M.predicted among non-blacks MDRD (S/P/Bld) [Vol rate/Area] 87 mL/min/{1.73_m2} Normal >59 [facility] Comment on above: Result Comment: Reported eGFR is based on the CKD-EPI 1 equation that does not use a race coefficient. Performed By: #### N UM #### [facility] ([id number]) [address] [place] [address] 86208 Glucose [Mass/Vol] 178 mg/dL High 65-99 [facility] Comment on above: Performed By: #### N UM #### [facility] ([id number]) [address] [place] [address] 62743 Potassium [Moles/Vol] 2.9 mmol/L Low 3.5-5.0 [facility] Comment on above: Performed By: #### N UM #### [facility] ([id number]) [address] [place] [address] 93723 Protein [Mass/Vol] 8.1 g/dL High 6.0-8.0 [facility] Comment on above: Performed By: #### N UM #### [facility] ([id number]) [address] [place] [address] 59349 Sodium [Moles/Vol] 134 mmol/L Normal 134-146 [facility] Comment on above: Performed By: #### N UM #### [facility] ([id number]) [address] [place] [address] 25179 Urea nitrogen [Mass/Vol] 9 mg/dL Normal 5-23 [facility] Comment on above: Performed By: #### N UM #### [facility] ([id number]) [address] [place] [address] ABDOMEN AND PELVIS W CONT on 08-20-2023 CT ABDOMEN AND PELVIS W CONT CT ABDOMEN AND PELVIS W CONT CLINICAL INFORMATION: Abdominal pain, acute, nonlocalized. COMPARISON: 06/27/2023 TECHNIQUE: CT of the abdomen and pelvis with intravenous contrast. FINDINGS: LOWER CHEST: Lung bases are clear. No pericardial or pleural effusion. LIVER AND BILIARY: Steatotic liver disease. No suspicious focal lesion. No overt biliary dilatation; prior cholecystectomy. PANCREAS: Within normal limits. SPLEEN: Within normal limits. ADRENALS: Within normal limits. Symmetric enhancement. No suspicious lesion or KIDNEYS, URETERS, AND BLADDER: Dilatation. Normal bladder contour. GI TRACT AND PERITONEUM: No bowel obstruction. Diffusely thickened large bowel. Unremarkable appendix. Surgical changes Artery repair. No free fluid or free air. VASCULATURE: Normal caliber aorta. Grossly patent portal vein, SMV, SMA for technique. LYMPH NODES: Within normal limits. REPRODUCTIVE ORGANS: Asymmetric prominent right ovary, thought related to physiologic cysts corpus luteal cyst, though ultrasound could confirm depending on clinical suspicion for any acute ovarian/adnexal abnormality otherwise. Unremarkable uterine contour. MUSCULOSKELETAL: No acute osseous abnormality. Prior lumbar fusion/posterior decompression. IMPRESSION: 1. Diffusely thickened large bowel, likely reflecting underdistention/physiologic intramural fat deposition; underlying subacute/chronic colitis could theoretically appear similarly. 2. Steatotic liver. 3. Asymmetric prominent right ovary, thought related to corpus luteal cyst, though ultrasound could confirm depending on clinical suspicion for any other acute ovarian/adnexal abnormality All CT scans at this facility use dose modulation, iterative reconstruction, and/or weight based dosing when appropriate to reduce radiation dose to as low as reasonably achievable. Finalized by Jose Raul Kaur MD on 08/20/2023 9:18 PM Normal [facility] LIPASEon 08-20-2023 Lipase [Catalytic activity/Vol] 26 U/L Normal 17-40 [facility] Comment on above: Performed By: #### N UM #### [facility] ([id number]) [address] [place] [address] 77786 Lactate (P remy) [Moles/Vol]o n 08-20-2023 LACTATE W/REFLEX 2.2 mmol/L High 0.4-2.0 [facility] Comment on above: Performed By: #### N UM #### [facility] ([id number]) [address] [place] [address] 65193 MAGNESIUMon 08-20-2023 Magnesium [Mass/Vol] 1.5 mg/dL Low 1.8-2.6 [facility] Comment on above: Performed By: #### N UM #### [facility] ([id number]) [address] [place] [address] 71570 Calprotectin (Stl) [Mass/Mas s]on 08-17-2023 Calprotectin, F <50.0 Normal <50.0 (Normal) [facility] Comment on above: Result Comment: NOTE Test Performed by: [facility] [address] [place] [address] Beta Tester: Oziel Moran M.D. Ph.D.; CLIA# [id number] Performed By: #### V BG #### [facility] ([id number]) [address] [place] [address] 80198 GI PANELon 08-17-2023 Gastrointestinal pathogens DNA and RNA panel GEORGE+non-probe (Stl) SPECIMEN SOURCE STOOL CAMPYLOBACTER Not detected (qualifier value) PLESIOMONAS Not detected (qualifier value) SALMONELLA Not detected (qualifier value) VIBRIO Not detected (qualifier value) VIBRIO CHOLERAE Not detected (qualifier value) Y. ENTEROCOLITICA Not detected (qualifier value) AGGREGATIVE E COLI Not detected (qualifier value) PATHOGENIC E COLI Not detected (qualifier value) TOXIGENIC E COLI Not detected (qualifier value) SHIGA TOXIN E COLI Not detected (qualifier value) SHIGELLA-E COLI Not detected (qualifier value) CRYPTOSPORIDIUM Not detected (qualifier value) CYCLOSPORA Not detected (qualifier value) E HISTOLYTICA Not detected (qualifier value) GIARDIA LAMBLIA Not detected (qualifier value) ADENOVIRUS Not detected (qualifier value) ASTROVIRUS Not detected (qualifier value) NOROVIRUS Not detected (qualifier value) ROTAVIRUS A Not detected (qualifier value) SAPOVIRUS Not detected (qualifier value) Normal NDET [facility] Comment on above: Performed By: #### 8 2195-9 ####[facility] ([id number])[address] [place] [address] ([id number])[address] [facility], [address], [place] [address] CBC AND AUTO DIFFon 08-15-19 24 ABSOLUTE BASOPHIL 0.0 X10E9/L Normal 0.0-0.2 [facility] Comment on above: Performed By: #### C BCA, CMP, 1988-5, FEPR, 2276-4, 3040-3 ####[facility] ([id number])[address] [address] [place] [address] ABSOLUTE NEUTROPHIL 1.8 X10E9/L Normal 1.5-6.6 [facility] Comment on above: Performed By: #### C BCA, CMP, 1987-09, FEPR, 2275-, 3039-3 ####[facility] ([id number])[address] [address], [place] [address] Basophils/100 WBC (Bld) 1.0 % Normal [facility] Comment on above: Performed By: #### C BCA, CMP, 1987-09, FEPR, 2275-08, 3039-3 ####[facility] ([id number])[address] [address], [place] [address] Eosinophils (Bld) [#/Vol] 0.5 10*3/uL High 0.0-0.4 [facility] Comment on above: Performed By: #### C BCA, CMP, 1987-09, FEPR, 2275-08, 3 ####[facility] ([id number])[address] [address], [place] [address] Eosinophils/100 WBC (Bld) 12.1 % Normal [facility] Comment on above: Performed By: #### C BCA, CMP, 1987-09, FEPR, 2275-08, 3039-3 ####[facility] ([id number])[address] [address], [place] [address] Erythrocyte distribution width (RBC) [Ratio] 13.6 % Normal 11.5-15.0 [facility] Comment on above: Performed By: #### C BCA, CMP, 1987-09, FEPR, 2275-08, 3039-3 ####[facility] ([id number])[address] [address] [address] Hematocrit (Bld) [Volume fraction] 37.7 % Normal 35-47 [facility] Comment on above: Performed By: #### C BCA, CMP, 1987-09, FEPR, 2275-4, 0-3 ####[facility] ([id number])[address], [address] [place] [address] 00776 Hemoglobin (Bld) [Mass/Vol] 12.7 g/dL Normal 11.7-15.5 [facility] Comment on above: Performed By: #### C BCA, CMP, 1987-09, FEPR, 4, 3039-3 ####[facility] ([id number])[address] [address] Lymphocytes (Bld) [#/Vol] 1.8 10*3/uL Normal 1.0-3.5 [facility] Comment on above: Performed By: #### C BCA, CMP, 1987-09, FEPR, 2275-08, 3039-3 ####[facility] ([id number])[address] [address] [place] [address] 24047 Lymphocytes/100 WBC (Bld) 40.6 % Normal [facility] Comment on above: Performed By: #### C BCA, CMP, 1987-09, FEPR, 2275-08, 3039-3 ####[facility] ([id number])[address] [address], [place] [address] MCH (RBC) [Entitic mass] 30.5 pg Normal 27-34 [facility] Comment on above: Performed By: #### C BCA, CMP, 1987-09, FEPR, 2275-08, 0-3 ####[facility] ([id number])[address] [address] [place] [address] 99701 MCHC (RBC) [Mass/Vol] 33.6 g/dL Normal 32-36 [facility] Comment on above: Performed By: #### C BCA, CMP, 1987-09, FEPR, 2275-08, 3040-3 ####[facility] ([id number])[address] [place] [address] MCV (RBC) [Entitic vol] 91 fL Normal 80-100 [facility] Comment on above: Performed By: #### C BCA, CMP, 1987-09, FEPR, 2275-08, 3039-3 ####[facility] ([id number])[address] [address] [address] Monocytes (Bld) [#/Vol] 0.2 10*3/uL Normal 0-0.9 [facility] Comment on above: Performed By: #### C BCA, CMP, 1987-09, FEPR, 2275-08, 3 ####[facility] ([id number])[address] [address], [place] [address] Monocytes/100 WBC (Bld) 5.7 % Normal [facility] Comment on above: Performed By: #### C BCA, CMP, 1987-09, FEPR, 2275-08, 3039-3 ####[facility] ([id number])[address] [address], [place] [address] Neutrophils/100 WBC (Bld) 40.6 % Normal [facility] Comment on above: Performed By: #### C BCA, CMP, 1987-09, FEPR, 2275-08, 3039-3 ####[facility] ([id number])[address] [address] [place] [address] Platelet mean volume (Bld) [Entitic vol] 8.6 fL Normal 7-12 [facility] Comment on above: Performed By: #### C BCA, CMP, 1987-09, FEPR, 2275-08, 3039-3 ####[facility] ([id number])[address] [address] [place] [address] Platelets (Bld) [#/Vol] 317 10*3/uL Normal 150-450 [facility] Comment on above: Performed By: #### C BCA, CMP, 1987-09, FEPR, 6-4, 0-3 ####[facility] ([id number])[address], [place] [address] RBC COUNT 4.15 X10E12/L Normal 3.80-5.20 [facility] Comment on above: Performed By: #### C BCA, CMP, 1987-09, FEPR, 6-4, 3039-3 ####[facility] ([id number])[address] [address] [place] [address]118 WBC (Bld) [#/Vol] 4.3 10*3/uL Normal 4.0-11.0 [facility] Comment on above: Performed By: #### C BCA, CMP, 1987-09, FEPR, 2275-08, 304-3 ####[facility] ([id number])[address], [address] [place] [address] COMPREHENSIVE METABOLIC PANE Pee 08-15-2023 Albumin [Mass/Vol] 3.9 g/dL Normal 3.2-5.3 [facility] Comment on above: Performed By: #### C BCA, CMP, 1987-09, FEPR, 4, 3040-3 ####[facility] ([id number])[address], [address] [place] [address] 57686 ALP [Catalytic activity/Vol] 37 U/L Low 39-130 [facility] Comment on above: Performed By: #### C BCA, CMP, 1987-09, FEPR, 2275-4, 3040-3 ####[facility] ([id number])[address] [address] [place] [address] 57935 ALT [Catalytic activity/Vol] 34 U/L High 0-31 [facility] Comment on above: Performed By: #### C BCA, CMP, 1987-09, FEPR, 2275-, 0-3 ####[facility] ([id number])[address], [address], [place] [address] Anion gap [Moles/Vol] 11 mmol/L Normal 5-15 [facility] Comment on above: Performed By: #### C BCA, CMP, 1987-09, FEPR, 4, 0-3 ####[facility] ([id number])[address], [address], [place] [address] AST [Catalytic activity/Vol] 27 U/L Normal 0-41 [facility] Comment on above: Performed By: #### C BCA, CMP, 1987-09, FEPR, 2275-4, 0-3 ####[facility] ([id number])[address] [address], [place] [address] Bilirubin [Mass/Vol] 0.4 mg/dL Normal 0.3-1.2 [facility] Comment on above: Performed By: #### C BCA, CMP, 1987-09, FEPR, 2275-08, 3039-3 ####[facility] ([id number])[address] [address], [place] [address] Calcium [Mass/Vol] 9.1 mg/dL Normal 8.5-10.5 [facility] Comment on above: Performed By: #### C BCA, CMP, 1987-09, FEPR, 2275-08, 3039-3 ####[facility] ([id number])[address] [address], [place] [address] Chloride [Moles/Vol] 106 mmol/L Normal 98-109 [facility] Comment on above: Performed By: #### C BCA, CMP, 1987-09, FEPR, 6-4, 0-3 ####[facility] ([id number])[address], [address], [place] [address] CO2 [Moles/Vol] 22 mmol/L Normal 22-32 [facility] Comment on above: Performed By: #### C BCA, CMP, 1987-09, FEPR, 2276-4, 3040-3 ####[facility] ([id number])[address] [address], [place] [address] Creatinine [Mass/Vol] 0.87 mg/dL Normal 0.40-1.00 [facility] Comment on above: Result Comment: METH OD TRACEABLE TO IDMS STANDARD Performed By: #### C BCA, CMP, 1987-09, FEPR, 2276-4, 3040-3 ####[facility] ([id number])[address] [address], [place] [address] GFR/1.73 sq M.predicted among non-blacks MDRD (S/P/Bld) [Vol rate/Area] 90 mL/min/{1.73_m2} Normal >59 [facility] Comment on above: Result Comment: Reported eGFR is based on the CKD-EPI 2020 equation that does not use a race coefficient. Performed By: #### C BCA, CMP, 1987-09, FEPR, 2276-4, 3040-3 ####[facility] ([id number])[address] [address] [address] Glucose [Mass/Vol] 108 mg/dL High 65-99 [facility] Comment on above: Performed By: #### C BCA, CMP, 1987-09, FEPR, 2276-4, 0-3 ####[facility] ([id number])[address] [address] [place] [address] Potassium [Moles/Vol] 3.5 mmol/L Normal 3.5-5.0 [facility] Comment on above: Performed By: #### C BCA, CMP, 1987-09, FEPR, 2276-4, 3040-3 ####[facility] ([id number])[address] [address], [place] [address] Protein [Mass/Vol] 6.2 g/dL Normal 6.0-8.0 [facility] Comment on above: Performed By: #### C BCA, CMP, 1987-09, FEPR, 2275-4, 0-3 ####[facility] ([id number])[address], [address], [place] [address] Sodium [Moles/Vol] 139 mmol/L Normal 134-146 [facility] Comment on above: Performed By: #### C BCA, CMP, 1987-09, FEPR, 4, 0-3 ####[facility] ([id number])[address], [address] [place] [address]756 Urea nitrogen [Mass/Vol] 8 mg/dL Normal 5-23 [facility] Comment on above: Performed By: #### C BCA, CMP, 1987-09, FEPR, 2275-08, 304-3 ####[facility] ([id number])[address] [address] [place] [address] 46409 CRP [Mass/Vol]on 08-15-2023 C REACTIVE PROTEIN 0.1 mg/dL Normal 0.000-0.7 4 4 [facility] Comment on above: Performed By: #### C BCA, CMP, 1987-09, FEPR, 4, 304-3 ####[facility] ([id number])[address] [address] [place] [address] 70183 FERRITINon 08-15-2023 Ferritin [Mass/Vol] 33 ng/mL Normal 11-307 [place] Comment on above: Performed By: #### C BCA, CMP, 1987-09, FEPR, 4, 3040-3 ####[facility] ([id number])[address] [address], [place] [address] IRON PROFILEon 08-15-2023 Iron [Mass/Vol] 114 ug/dL Normal 50-170 [facility] Comment on above: Performed By: #### C BCA, CMP, 1987-09, FEPR, 2276-4, 3040-3 ####[facility] ([id number])[address], [address], [place] [address] IRON BINDING 458 ug/dL High 250-425 [facility] Comment on above: Performed By: #### C BCA, CMP, 1987-09, FEPR, 2276-4, 0-3 ####[facility] ([id number])[address], [address], [place] [address] IRON SATURATION 25 % SATURATION Normal 15-50 [facility] Comment on above: Performed By: #### C BCA, CMP, 1987-09, FEPR, 4, 3040-3 ####[facility] ([id number])[address], [address], [place] [address] LIPASEon 08-15-2023 Lipase [Catalytic activity/Vol] 23 U/L Normal 11-82 [facility] Comment on above: Performed By: #### C BCA, CMP, 1987-09, FEPR, 4, 3040-3 ####[facility] ([id number])[address], [address], [place] [address] COMPREHENSIVE METABOLIC PANE Pee 07-24-2023 Albumin [Mass/Vol] 4.1 g/dL Normal 3.2-5.3 [facility] Comment on above: Performed By: #### [place], [address]-9 #### [facility] ([id number]) [address], [address] [place] [address]83 ALP [Catalytic activity/Vol] 46 U/L Normal 39-130 [facility] Comment on above: Performed By: #### C MP, 00014-3 #### [facility] ([id number]) [address], [address] [place] [address] ALT [Catalytic activity/Vol] 46 U/L High 0-31 [facility] Comment on above: Performed By: #### Nany LOPEZ, #### [facility] ([id number]) [address], [address] [place] [address] Anion gap [Moles/Vol] 8 mmol/L Normal 5-15 [facility] Comment on above: Performed By: #### Nany LOPEZ, #### [facility] ([id number]) [address], [address] [place] [address] AST [Catalytic activity/Vol] 28 U/L Normal 0-41 [facility] Comment on above: Performed By: #### Nany LOPEZ, #### [facility] ([id number]) [address], [address] [place] [address] Bilirubin [Mass/Vol] 0.4 mg/dL Normal 0.3-1.2 [facility] Comment on above: Performed By: #### Nany LOPEZ, #### [facility] ([id number]) [address], [address] [place] [address] Calcium [Mass/Vol] 9.4 mg/dL Normal 8.5-10.5 [facility] Comment on above: Performed By: #### Nany LOPEZ, #### [facility] ([id number]) [address], [address] [place] [address] Chloride [Moles/Vol] 107 mmol/L Normal 98-109 [facility] Comment on above: Performed By: #### Nany LOPEZ, #### [facility] ([id number]) [address], [address] [place] [address] CO2 [Moles/Vol] 24 mmol/L Normal 22-32 [facility] Comment on above: Performed By: #### Nany LOPEZ, #### [facility] ([id number]) [address], [address] [place] [address] Creatinine [Mass/Vol] 0.74 mg/dL Normal 0.40-1.00 [facility] Comment on above: Result Comment: METH OD TRACEABLE TO IDMS STANDARD Performed By: #### C JESSICA, #### [facility] ([id number]) [address], [address] [place] [address] eGFR (CKD-EPI) NON-RACE DEPENDENT >90 Normal >59 [facility] Comment on above: Result Comment: Reported eGFR is based on the CKD-EPI 2020 equation that does not use a race coefficient. Performed By: #### Nany LOPEZ, #### [facility] ([id number]) [address], [address] [place] [address] Glucose [Mass/Vol] 138 mg/dL High 65-99 [facility] Comment on above: Performed By: #### Nany LOPEZ, #### [facility] ([id number]) [address], [address] [place] [address] Potassium [Moles/Vol] 3.5 mmol/L Normal 3.5-5.0 [facility] Comment on above: Performed By: #### Nany LOPEZ, #### [facility] ([id number]) [address] [address] [place] [address] Protein [Mass/Vol] 6.7 g/dL Normal 6.0-8.0 [facility] Comment on above: Performed By: #### Nany LOPEZ, #### [facility] ([id number]) [address] [address] [place] [address] Sodium [Moles/Vol] 139 mmol/L Normal 134-146 [facility] Comment on above: Performed By: #### Nany LOPEZ, #### [facility] ([id number]) [address], [address] [place] [address] Urea nitrogen [Mass/Vol] 8 mg/dL Normal 5-23 [facility] Comment on above: Performed By: #### C , 82224-4 #### [facility] ([id number]) [address], [address] [place] [address] Comprehensive metabolic pane pee 07-24-2023 Albumin [Mass/Vol] 4.1 g/dL 3.2 - 5.3 g/dL [facility] ALP [Catalytic activity/Vol] 46 U/L 39 - 130 U/L [facility] ALT No additional P-5'-P [Catalytic activity/Vol] 46 U/L High 0 - 31 U/L [facility] Anion gap [Moles/Vol] 8 mmol/L 5 - 15 mmol/L [facility] AST [Catalytic activity/Vol] 28 U/L 0 - 41 U/L [facility] Bilirubin [Mass/Vol] 0.4 mg/dL 0.3 - 1 .2 mg/dL [facility] Calcium [Mass/Vol] 9.4 mg/dL 8.5 - 10. 5 mg/dL [facility] Chloride [Moles/Vol] 107 mmol/L 98 - 10 9 mmol/L [facility] CO2 [Moles/Vol] 24 mmol/L 22 - 32 mmol/L [facility] Creatinine [Mass/Vol] 0.74 mg/dL 0.40 - 1.00 mg/dL [facility] Comment on above: METHOD TRACEABLE TO IDAK STANDARD eGFR (CKD-EPI)non-race dependent - PINF [facility] Comment on above: Reported eGFR is based on the CKD-EPI 2020 equation that does not use a race coefficient. Glucose [Mass/Vol] 138 mg/dL High 65 - 99 mg/dL [facility] Interpretation and review of laboratory results Abnormal [facility] Potassium [Moles/Vol] 3.5 mmol/L 3.5 - 5.0 mmol/L [facility] Protein [Mass/Vol] 6.7 g/dL 6.0 - 8.0 g/dL [facility] Sodium [Moles/Vol] 139 mmol/L 134 - 146 mmol/L [facility] Urea nitrogen [Mass/Vol] 8 mg/dL 5 - 23 mg/dL [facility] MAGNESIUMon 07-24-2023 Magnesium [Mass/Vol] 1.5 mg/dL Low 1.8-2.6 [facility] Comment on above: Performed By: #### [place], 535[address]-5 #### [facility] ([id number]) [address] [facility], [address] [place] [address] CBC AND AUTO DIFFon 06-30-19 ABSOLUTE BASOPHIL 0.0 X10E9/L Normal 0.0-0.2 [facility] Comment on above: Performed By: #### C OVFLR #### [facility] ([id number]) [address] [place] [address] ABSOLUTE NEUTROPHIL 2.7 X10E9/L Normal 1.5-6.6 [facility] Comment on above: Performed By: #### C OVFLR #### [facility] ([id number]) [address] [place] [address] 12206 Basophils/100 WBC (Bld) 0.8 % Normal [facility] Comment on above: Performed By: #### C OVFLR #### [facility] ([id number]) [address] [place] [address] 19983 Eosinophils (Bld) [#/Vol] 0.1 10*3/uL Normal 0.0-0.4 [facility] Comment on above: Performed By: #### C OVFLR #### [facility] ([id number]) [address] [place] [address] 92484 Eosinophils/100 WBC (Bld) 2.0 % Normal [facility] Comment on above: Performed By: #### C OVFLR #### [facility] ([id number]) [address] [place] [address] 93198 Erythrocyte distribution width (RBC) [Ratio] 12.8 % Normal 11.5-15.0 [facility] Comment on above: Performed By: #### C OVFLR #### [facility] ([id number]) [address] [place] [address] 84451 Hematocrit (Bld) [Volume fraction] 36.7 % Normal 35-47 [facility] Comment on above: Performed By: #### C OVFLR #### [facility] ([id number]) [address] [place] [address] 48572 Hemoglobin (Bld) [Mass/Vol] 12.5 g/dL Normal 11.7-15.5 [facility] Comment on above: Performed By: #### C OVFLR #### [facility] ([id number]) [address] [place] [address] 42785 Lymphocytes (Bld) [#/Vol] 1.5 10*3/uL Normal 1.0-3.5 [facility] Comment on above: Performed By: #### C OVFLR #### [facility] ([id number]) [address] [place] [address] 93098 Lymphocytes/100 WBC (Bld) 30.5 % Normal [facility] Comment on above: Performed By: #### C OVFLR #### [facility] ([id number]) [address] [place] [address] 26733 MCH (RBC) [Entitic mass] 31.0 pg Normal 27-34 [facility] Comment on above: Performed By: #### C OVFLR #### [facility] ([id number]) [address] [place] [address] 73121 MCHC (RBC) [Mass/Vol] 34.0 g/dL Normal 32-36 [facility] Comment on above: Performed By: #### C OVFLR #### [facility] ([id number]) [address] [place] [address] 65203 MCV (RBC) [Entitic vol] 91 fL Normal 80-100 [facility] Comment on above: Performed By: #### C OVFLR #### [facility] ([id number]) [address] [place] [address] 76358 Monocytes (Bld) [#/Vol] 0.5 10*3/uL Normal 0-0.9 [facility] Comment on above: Performed By: #### C OVFLR #### [facility] ([id number]) [address] [place] [address] 58120 Monocytes/100 WBC (Bld) 10.7 % Normal [facility] Comment on above: Performed By: #### C OVFLR #### [facility] ([id number]) [address] [place] [address] 91462 Neutrophils/100 WBC (Bld) 56.0 % Normal [facility] Comment on above: Performed By: #### C OVFLR #### [facility] ([id number]) [address] [place] [address] 29525 Platelet mean volume (Bld) [Entitic vol] 8.0 fL Normal 7-12 [facility] Comment on above: Performed By: #### C OVFLR #### [facility] ([id number]) [address] [place] [address] 55279 Platelets (Bld) [#/Vol] 296 10*3/uL Normal 150-450 [facility] Comment on above: Performed By: #### C OVFLR #### [facility] ([id number]) [address] [place] [address] 20121 RBC COUNT 4.03 X10E12/L Normal 3.80-5.20 [facility] Comment on above: Performed By: #### C OVFLR #### [facility] ([id number]) [address] [place] [address] 84626 WBC (Bld) [#/Vol] 4.9 10*3/uL Normal 4.0-11.0 [facility] Comment on above: Performed By: #### C OVFLR #### [facility] ([id number]) [address] [place] [address] [place] [address] COMPREHENSIVE METABOLIC PANE Pee 06-30-2023 Albumin [Mass/Vol] 3.8 g/dL Normal 3.2-5.3 [facility] Comment on above: Performed By: #### C OVFLR #### [facility] ([id number]) [address] [place] [address] 71842 ALP [Catalytic activity/Vol] 50 U/L Normal 39-130 [facility] Comment on above: Performed By: #### C OVFLR #### [facility] ([id number]) [address] [place] [address] 89267 ALT [Catalytic activity/Vol] 85 U/L High 0-31 [facility] Comment on above: Performed By: #### C OVFLR #### [facility] ([id number]) [address] [place] [address] 63272 Anion gap [Moles/Vol] 9 mmol/L Normal 5-15 [facility] Comment on above: Performed By: #### C OVFLR #### [facility] ([id number]) [address] [place] [address] 62326 AST [Catalytic activity/Vol] 69 U/L High 0-41 [facility] Comment on above: Performed By: #### C OVFLR #### [facility] ([id number]) [address] [place] [address] 86034 Bilirubin [Mass/Vol] 0.7 mg/dL Normal 0.3-1.2 [facility] Comment on above: Performed By: #### C OVFLR #### [facility] ([id number]) [address] [place] [address] 90380 Calcium [Mass/Vol] 8.7 mg/dL Normal 8.5-10.5 [facility] Comment on above: Performed By: #### C OVFLR #### [facility] ([id number]) [address] [place] [address] 95747 Chloride [Moles/Vol] 102 mmol/L Normal 98-109 [facility] Comment on above: Performed By: #### C OVFLR #### [facility] ([id number]) [address] [place] [address] 92079 CO2 [Moles/Vol] 25 mmol/L Normal 22-32 [facility] Comment on above: Performed By: #### C OVFLR #### [facility] ([id number]) [address] [place] [address] 79503 Creatinine [Mass/Vol] 0.78 mg/dL Normal 0.40-1.00 [facility] Comment on above: Result Comment: METH OD TRACEABLE TO IDMS STANDARD Performed By: #### C OVFLR #### [facility] ([id number]) [address] [place] [address] 38692 eGFR (CKD-EPI) NON-RACE DEPENDENT >90 Normal >59 [facility] Comment on above: Result Comment: Reported eGFR is based on the CKD-EPI 2020 equation that does not use a race coefficient. Performed By: #### C OVFLR #### [facility] ([id number]) [address] [place] [address] 35680 Glucose [Mass/Vol] 184 mg/dL High 65-99 [facility] Comment on above: Performed By: #### C OVFLR #### [facility] ([id number]) [address] [place] [address] 17437 Potassium [Moles/Vol] 3.5 mmol/L Normal 3.5-5.0 [facility] Comment on above: Performed By: #### C OVFLR #### [facility] ([id number]) [address] [place] [address] 47948 Protein [Mass/Vol] 6.9 g/dL Normal 6.0-8.0 [facility] Comment on above: Performed By: #### C OVFLR #### [facility] ([id number]) [address] [place] [address] 41152 Sodium [Moles/Vol] 136 mmol/L Normal 134-146 [facility] Comment on above: Performed By: #### C OVFLR #### [facility] ([id number]) [address] [place] [address] 32658 Urea nitrogen [Mass/Vol] 11 mg/dL Normal 5-23 [facility] Comment on above: Performed By: #### C OVFLR #### [facility] ([id number]) [address] [place] [address] 33152 Glucose Glucometer (BldC) [M ass/Vol]on 06-30-2023 Glucose [Mass/Vol] 161 mg/dL High 65-99 [facility] MAGNESIUMon 06-30-2023 Magnesium [Mass/Vol] 1.9 mg/dL Normal 1.8-2.6 [facility] Comment on above: Performed By: #### C BCA, CMP, 80062-6 ####[facility] ([id number])[address] [place] [address] 42098 CBC AND AUTO DIFFon 06-29-19 24 ABSOLUTE BASOPHIL 0.0 X10E9/L Normal 0.0-0.2 [facility] Comment on above: Performed By: #### C OVFLR #### [facility] ([id number]) [address] [place] [address] 15313 ABSOLUTE NEUTROPHIL 4.3 X10E9/L Normal 1.5-6.6 [facility] Comment on above: Performed By: #### C OVFLR #### [facility] ([id number]) [address] [place] [address] 00621 Basophils/100 WBC (Bld) 0.6 % Normal [facility] Comment on above: Performed By: #### C OVFLR #### [facility] ([id number]) [address] [place] [address] 54987 Eosinophils (Bld) [#/Vol] 0.0 10*3/uL Normal 0.0-0.4 [facility] Comment on above: Performed By: #### C OVFLR #### [facility] ([id number]) [address] [place] [address] 88367 Eosinophils/100 WBC (Bld) 0.3 % Normal [facility] Comment on above: Performed By: #### C OVFLR #### [facility] ([id number]) [address] [place] [address] 82798 Erythrocyte distribution width (RBC) [Ratio] 12.9 % Normal 11.5-15.0 [facility] Comment on above: Performed By: #### C OVFLR #### [facility] ([id number]) [address] [place] [address] 33379 Hematocrit (Bld) [Volume fraction] 39.5 % Normal 35-47 [facility] Comment on above: Performed By: #### C OVFLR #### [facility] ([id number]) [address] [place] [address] 67924 Hemoglobin (Bld) [Mass/Vol] 13.3 g/dL Normal 11.7-15.5 [facility] Comment on above: Performed By: #### C OVFLR #### [facility] ([id number]) [address] [place] [address] 75006 Lymphocytes (Bld) [#/Vol] 1.6 10*3/uL Normal 1.0-3.5 [facility] Comment on above: Performed By: #### C OVFLR #### [facility] ([id number]) [address] [place] [address] 18737 Lymphocytes/100 WBC (Bld) 24.3 % Normal [facility] Comment on above: Performed By: #### C OVFLR #### [facility] ([id number]) [address] [place] [address] [phone] MCH (RBC) [Entitic mass] 30.6 pg Normal 27-34 [facility] Comment on above: Performed By: #### C OVFLR #### [facility] ([id number]) [address] [place] [address] 78319 MCHC (RBC) [Mass/Vol] 33.7 g/dL Normal 32-36 [facility] Comment on above: Performed By: #### C OVFLR #### [facility] ([id number]) [address] [place] [address] [id number] MCV (RBC) [Entitic vol] 91 fL Normal 80-100 [facility] Comment on above: Performed By: #### C OVFLR #### [facility] ([id number]) [address] [place] [address] 97171 Monocytes (Bld) [#/Vol] 0.7 10*3/uL Normal 0-0.9 [facility] Comment on above: Performed By: #### C OVFLR #### [facility] ([id number]) [address] [place] [address] 27447 Monocytes/100 WBC (Bld) 10.9 % Normal [facility] Comment on above: Performed By: #### C OVFLR #### [facility] ([id number]) [address] [place] [address] 82143 Neutrophils/100 WBC (Bld) 63.9 % Normal [facility] Comment on above: Performed By: #### C OVFLR #### [facility] ([id number]) [address] [place] [address] 19449 Platelet mean volume (Bld) [Entitic vol] 8.0 fL Normal 7-12 [facility] Comment on above: Performed By: #### C OVFLR #### [facility] ([id number]) [address] [place] [address] 00650 Platelets (Bld) [#/Vol] 318 10*3/uL Normal 150-450 [facility] Comment on above: Performed By: #### C OVFLR #### [facility] ([id number]) [address] [place] [address] 11046 RBC COUNT 4.35 X10E12/L Normal 3.80-5.20 [facility] Comment on above: Performed By: #### C OVFLR #### [facility] ([id number]) [address] [place] [address]7546 WBC (Bld) [#/Vol] 6.7 10*3/uL Normal 4.0-11.0 [facility] Comment on above: Performed By: #### C OVFLR #### [facility] ([id number]) [address] [place] [address] COMPREHENSIVE METABOLIC PANE Pee 06-29-2023 Albumin [Mass/Vol] 4.2 g/dL Normal 3.2-5.3 [facility] Comment on above: Performed By: #### C OVFLR #### [facility] ([id number]) [address] [place] [address] 19393 ALP [Catalytic activity/Vol] 56 U/L Normal 39-130 [facility] Comment on above: Performed By: #### C OVFLR #### [facility] ([id number]) [address] [place] [address] 16030 ALT [Catalytic activity/Vol] 85 U/L High 0-31 [facility] Comment on above: Performed By: #### C OVFLR #### [facility] ([id number]) [address] [place] [address] 16998 Anion gap [Moles/Vol] 11 mmol/L Normal 5-15 [facility] Comment on above: Performed By: #### C OVFLR #### [facility] ([id number]) [address] [place] [address] 87689 AST [Catalytic activity/Vol] 77 U/L High 0-41 [facility] Comment on above: Performed By: #### C OVFLR #### [facility] ([id number]) [address] [place] [address] 31636 Bilirubin [Mass/Vol] 0.9 mg/dL Normal 0.3-1.2 [facility] Comment on above: Performed By: #### C OVFLR #### [facility] ([id number]) [address] [place] [address] 19793 Calcium [Mass/Vol] 8.5 mg/dL Normal 8.5-10.5 [facility] Comment on above: Performed By: #### C OVFLR #### [facility] ([id number]) [address] [place] [address] 08571 Chloride [Moles/Vol] 97 mmol/L Low 98-109 [facility] Comment on above: Performed By: #### C OVFLR #### [facility] ([id number]) [address] [place] [address] 42833 CO2 [Moles/Vol] 25 mmol/L Normal 22-32 [facility] Comment on above: Performed By: #### C OVFLR #### [facility] ([id number]) [address] [place] [address] 33020 Creatinine [Mass/Vol] 0.82 mg/dL Normal 0.40-1.00 [facility] Comment on above: Result Comment: METH OD TRACEABLE TO IDMS STANDARD Performed By: #### C OVFLR #### [facility] ([id number]) [address] [place] [address] 17226 eGFR (CKD-EPI) NON-RACE DEPENDENT >90 Normal >59 [facility] Comment on above: Result Comment: Reported eGFR is based on the CKD-EPI 2020 equation that does not use a race coefficient. Performed By: #### C OVFLR #### [facility] ([id number]) [address] [place] [address] 33274 Glucose [Mass/Vol] 191 mg/dL High 65-99 [facility] Comment on above: Performed By: #### C OVFLR #### [facility] ([id number]) [address] [place] [address] 48938 Potassium [Moles/Vol] 3.1 mmol/L Low 3.5-5.0 [facility] Comment on above: Performed By: #### C OVFLR #### [facility] ([id number]) [address] [place] [address] 52335 Protein [Mass/Vol] 7.5 g/dL Normal 6.0-8.0 [facility] Comment on above: Performed By: #### C OVFLR #### [facility] ([id number]) [address] [place] [address] 85841 Sodium [Moles/Vol] 133 mmol/L Low 134-146 [facility] Comment on above: Performed By: #### C OVFLR #### [facility] ([id number]) [address] [place] [address] 86855 Urea nitrogen [Mass/Vol] 12 mg/dL Normal 5-23 [facility] Comment on above: Performed By: #### C OVFLR #### [facility] ([id number]) [address] [place] [address] 47927 Glucose Glucometer (BldC) [M ass/Vol]on 06-29-2023 Glucose [Mass/Vol] 161 mg/dL High 65-99 [facility] Glucose [Mass/Vol] 191 mg/dL High 65-99 [facility] Glucose [Mass/Vol] 197 mg/dL High 65-99 [facility] MAGNESIUMon 06-29-2023 Magnesium [Mass/Vol] 2.0 mg/dL Normal 1.8-2.6 [facility] Comment on above: Performed By: #### C OVFLR #### [facility] ([id number]) [address] [place] [address] 45519 POTASSIUMon 06-29-2023 Potassium [Moles/Vol] 3.3 mmol/L Low 3.5-5.0 [facility] Comment on above: Performed By: #### C OVFLR #### [facility] ([id number]) [address] [place] [address] 81201 CBC AND AUTO DIFFon 06-28-19 24 ABSOLUTE BASOPHIL 0.1 X10E9/L Normal 0.0-0.2 [facility] Comment on above: Performed By: #### 1 9123-9, THYR #### [facility] ([id number]) [address], [address] [place] [address] ABSOLUTE NEUTROPHIL 12.7 X10E9/L High 1.5-6.6 [facility] Comment on above: Performed By: #### 1 9123-9, THYR #### [facility] ([id number]) [address], [address] [place] [address] Basophils/100 WBC (Bld) 0.4 % Normal [facility] Comment on above: Performed By: #### 1 9123-9, THYR #### [facility] ([id number]) [address], [address] [place] [address] Eosinophils (Bld) [#/Vol] 0.0 10*3/uL Normal 0.0-0.4 [facility] Comment on above: Performed By: #### 1 9123-9, THYR #### [facility] ([id number]) [address], [address] [place] [address] Eosinophils/100 WBC (Bld) 0.0 % Normal [facility] Comment on above: Performed By: #### 1 9123-9, THYR #### [facility] ([id number]) [address], [address] [place] [address] Erythrocyte distribution width (RBC) [Ratio] 13.5 % Normal 11.5-15.0 [facility] Comment on above: Performed By: #### 1 9123-9, THYR #### [facility] ([id number]) [address], [address] [place] [address] Hematocrit (Bld) [Volume fraction] 42.2 % Normal 35-47 [facility] Comment on above: Performed By: #### 1 9123-9, THYR #### [facility] ([id number]) [address], [address] [place] [address] Hemoglobin (Bld) [Mass/Vol] 14.4 g/dL Normal 11.7-15.5 [facility] Comment on above: Performed By: #### 1 9123-9, THYR #### [facility] ([id number]) [address], [address] [place] [address] Lymphocytes (Bld) [#/Vol] 2.5 10*3/uL Normal 1.0-3.5 [facility] Comment on above: Performed By: #### 1 9123-9, THYR #### [facility] ([id number]) [address], [address] [place] [address] Lymphocytes/100 WBC (Bld) 14.9 % Normal [facility] Comment on above: Performed By: #### 1 9123-9, THYR #### [facility] ([id number]) [address], [address] [place] [address] MCH (RBC) [Entitic mass] 30.8 pg Normal 27-34 [facility] Comment on above: Performed By: #### 1 9123-9, THYR #### [facility] ([id number]) [address], [address] [place] [address] MCHC (RBC) [Mass/Vol] 34.1 g/dL Normal 32-36 [facility] Comment on above: Performed By: #### 1 9123-9, THYR #### [facility] ([id number]) [address], [address] [place] [address] MCV (RBC) [Entitic vol] 90 fL Normal 80-100 [facility] Comment on above: Performed By: #### 1 9123-9, THYR #### [facility] ([id number]) [address], [address] [place] [address] Monocytes (Bld) [#/Vol] 1.5 10*3/uL High 0-0.9 [facility] Comment on above: Performed By: #### 1 9123-9, THYR #### [facility] ([id number]) [address], [address] [place] [address] Monocytes/100 WBC (Bld) 8.9 % Normal [facility] Comment on above: Performed By: #### 1 9123-9, THYR #### [facility] ([id number]) [address], [address] [place] [address] Neutrophils/100 WBC (Bld) 75.8 % Normal [facility] Comment on above: Performed By: #### 1 9123-9, THYR #### [facility] ([id number]) [address], [address] [place] [address] Platelet mean volume (Bld) [Entitic vol] 8.5 fL Normal 7-12 [facility] Comment on above: Performed By: #### 1 9123-9, THYR #### [facility] ([id number]) [address], [address] [place] [address] Platelets (Bld) [#/Vol] 422 10*3/uL Normal 150-450 [facility] Comment on above: Performed By: #### 1 9123-9, THYR #### [facility] ([id number]) [address], [address] [place] [address] RBC COUNT 4.68 X10E12/L Normal 3.80-5.20 [facility] Comment on above: Performed By: #### 1 9123-9, THYR #### [facility] ([id number]) [address], [address] [place] [address] WBC (Bld) [#/Vol] 16.7 10*3/uL High 4.0-11.0 [place] Comment on above: Performed By: #### 1 9123-9, THYR #### [facility] ([id number]) [address], [address] [place] [address] COMPREHENSIVE METABOLIC PANE Pee 06-28-2023 Albumin [Mass/Vol] 4.8 g/dL Normal 3.2-5.3 [facility] Comment on above: Performed By: #### 1 9123-9, THYR #### [facility] ([id number]) [address], [address] [place] [address] ALP [Catalytic activity/Vol] 64 U/L Normal 39-130 [facility] Comment on above: Performed By: #### 1 9123-9, THYR #### [facility] ([id number]) [address], [address] [place] [address] ALT [Catalytic activity/Vol] 90 U/L High 0-31 [facility] Comment on above: Performed By: #### 1 9123-9, THYR #### [facility] ([id number]) [address], [address] [place] [address] Anion gap [Moles/Vol] 15 mmol/L Normal 5-15 [facility] Comment on above: Performed By: #### 1 9123-9, THYR #### [facility] ([id number]) [address], [address] [place] [address] AST [Catalytic activity/Vol] 88 U/L High 0-41 [facility] Comment on above: Performed By: #### 1 9123-9, THYR #### [facility] ([id number]) [address], [address] [place] [address] Bilirubin [Mass/Vol] 1.1 mg/dL Normal 0.3-1.2 [facility] Comment on above: Performed By: #### 1 9123-9, THYR #### [facility] ([id number]) [address], [address] [place] [address] Calcium [Mass/Vol] 9.0 mg/dL Normal 8.5-10.5 [facility] Comment on above: Performed By: #### 1 9123-9, THYR #### [facility] ([id number]) [address], [address] [place] [address] Chloride [Moles/Vol] 96 mmol/L Low 98-109 [facility] Comment on above: Performed By: #### 1 9123-9, THYR #### [facility] ([id number]) [address], [address] [place] [address] CO2 [Moles/Vol] 22 mmol/L Normal 22-32 [facility] Comment on above: Performed By: #### 1 9123-9, THYR #### [facility] ([id number]) [address], [address] [place] [address] Creatinine [Mass/Vol] 0.97 mg/dL Normal 0.40-1.00 [facility] Comment on above: Result Comment: METH OD TRACEABLE TO IDMS STANDARD Performed By: #### 1 9123-9, THYR #### [facility] ([id number]) [address], [address] [place] [address] GFR/1.73 sq M.predicted among non-blacks MDRD (S/P/Bld) [Vol rate/Area] 79 mL/min/{1.73_m2} Normal >59 [facility] Comment on above: Result Comment: Reported eGFR is based on the CKD-EPI 2020 equation that does not use a race coefficient. Performed By: #### 1 9123-9, THYR #### [facility] ([id number]) [address], [address] [place] [address] Glucose [Mass/Vol] 221 mg/dL High 65-99 [facility] Comment on above: Performed By: #### 1 9123-9, THYR #### [facility] ([id number]) [address], [address] [place] [address] Potassium [Moles/Vol] 3.1 mmol/L Low 3.5-5.0 [facility] Comment on above: Performed By: #### 1 9123-9, THYR #### [facility] ([id number]) [address], [address] [place] [address] Protein [Mass/Vol] 8.1 g/dL High 6.0-8.0 [facility] Comment on above: Performed By: #### 1 9123-9, THYR #### [facility] ([id number]) [address], [address] [place] [address] Sodium [Moles/Vol] 133 mmol/L Low 134-146 [facility] Comment on above: Performed By: #### 1 9123-9, THYR #### [facility] ([id number]) [address], [address] [place] [address] Urea nitrogen [Mass/Vol] 15 mg/dL Normal 5-23 [facility] Comment on above: Performed By: #### 1 9123-9, THYR #### [facility] ([id number]) [address], [address] [place] [address] DRUG SCREEN, URINEon 024 AMPHETAMINE/METHAMP Negative Normal NEG [place] Comment on above: Result Comment: AMPH /METH screening cut off = 1000 ng/mL Performed By: #### 1 9123-9, THYR #### [facility] ([id number]) [address], [address] [place] [address] BARBITURATES Negative Normal NEG [facility] Comment on above: Result Comment: Nini iturates screening cut off value = 200 ng/mL Performed By: #### 1 9123-9, THYR #### [facility] ([id number]) [address], [address] [place] [address] BENZODIAZEPINES Negative Normal NEG [facility] Comment on above: Result Comment: Ravindra odiazepines screening cut off value = 200 ng/mL Performed By: #### 1 9123-9, THYR #### [facility] ([id number]) [address], [address] [place] [address] CANNABINOIDS Positive Abnormal NEG [facility] Comment on above: Result Comment: Conf irmation available upon request. Cannabinoids/THC screening cut off value = 50 ng/mL Performed By: #### 1 9123-9, THYR #### [facility] ([id number]) [address], [address] [place] [address] COCAINE METABOLITE Negative Normal NEG [facility] Comment on above: Result Comment: Coca ine screening cut off value = 300 ng/mL Performed By: #### 1 9123-9, THYR #### [facility] ([id number]) [address], [address] [place] [address] ECSTASY Negative Normal NEG [facility] Comment on above: Result Comment: Ecst asy screening cut off value = 500 ng/mL This report is intended for use in clinical monitoring or management of patients. Performed By: #### 1 9123-9, THYR #### [facility] ([id number]) [address], [address] [place] [address] METHADONE Negative Normal NEG [facility] Comment on above: Result Comment: Meth adone screening cut off value = 300 ng/mL. Performed By: #### 1 9123-9, THYR #### [facility] ([id number]) [address], [address] [place] [address] OPIATES Negative Normal NEG [facility] Comment on above: Result Comment: Opia rosemarie screening cut off value = 300 ng/mL NOTE: This test is used for the detection of codeine, hydrocodone (>1000 ng/mL), morphine and hydromorphone (>900 ng/mL) in urine. Performed By: #### 1 9123-9, THYR #### [facility] ([id number]) [address], [address] [place] [address] OXYCODONE Negative Normal NEG [facility] Comment on above: Result Comment: Oxyc odone screening cut off value = 300 ng/mL NOTE: This test is used for the detection of oxycodone and oxymorphone in urine. Performed By: #### 1 9123-9, THYR #### [facility] ([id number]) [address], [address] [place] [address] PHENCYCLIDINE Negative Normal NEG [facility] Comment on above: Result Comment: Phen cyclidine screening cut off value = 25 ng/mL Performed By: #### 1 9123-9, THYR #### [facility] ([id number]) [address], [address] [place] [address] Glucose Glucometer (BldC) [M ass/Vol]on 06-28-2023 Glucose [Mass/Vol] 165 mg/dL High 65-99 [facility] Glucose [Mass/Vol] 156 mg/dL High 65-99 [facility] Glucose [Mass/Vol] 206 mg/dL High 65-99 [facility] MAGNESIUMon 06-28-2023 Magnesium [Mass/Vol] 2.0 mg/dL Normal 1.8-2.6 [facility] Comment on above: Performed By: #### 1 9123-9, THYR #### [facility] ([id number]) [address], [address] [place] [address] PHOSPHORUSon 06-28-2023 Phosphate [Mass/Vol] 2.6 mg/dL Normal 2.4-4.9 [facility] Comment on above: Performed By: #### 1 9123-9, THYR #### [facility] ([id number]) [address], [address] [place] [address] POTASSIUMon 06-28-2023 Potassium [Moles/Vol] 3.2 mmol/L Low 3.5-5.0 [facility] Comment on above: Performed By: #### 1 9123-9, THYR #### [facility] ([id number]) [address], [address] [place] [address] Potassium [Moles/Vol] 3.1 mmol/L Low 3.5-5.0 [facility] Comment on above: Performed By: #### 1 9123-9, THYR #### [facility] ([id number]) [address], [address] [place] [address] PROTIME AND INRon 06-28-2023 INR Coag (PPP) [Relative time] 1.1 {INR} Normal 0.8-1.1 [facility] Comment on above: Performed By: #### 1 9123-9, THYR #### [facility] ([id number]) [address], [address] [place] [address] PT Coag (PPP) [Time] 12.8 s Normal 9.8-13.2 [facility] Comment on above: Result Comment: NEW REFERENCE RANGE Performed By: #### 1 9123-9, THYR #### [facility] ([id number]) [address], [address] [place] [address] THYROID PROFILEon 06-28-2023 Free T4 [Mass/Vol] 0.94 ng/dL Normal 0.61-1.60 [facility] Comment on above: Performed By: #### 1 9123-9, THYR #### [facility] ([id number]) [address], [address] [place] [address] TSH 1.50 uIU/mL Normal 0.49-4.67 [facility] Comment on above: Performed By: #### 1 9123-9, THYR #### [facility] ([id number]) [address], [address] [place] [address] URINALYSISon 06-28-2023 Bilirubin Ql (U) MODERATE Abnormal NEG [facility] Comment on above: Result Comment: Not confirmed, interpret positive results with caution. Performed By: #### 1 9123-9, THYR #### [facility] ([id number]) [address], [address] [place] [address] BLOOD/HGB MODERATE Abnormal NEG [facility] Comment on above: Performed By: #### 1 9123-9, THYR #### [facility] ([id number]) [address], [address] [place] [address] Color (U) YELLOW Normal YELLOW [facility] Comment on above: Performed By: #### 1 9123-9, THYR #### [facility] ([id number]) [address], [address] [place] [address] Glucose Ql (U) 100 mg/dL Abnormal NEG [facility] Comment on above: Performed By: #### 1 9123-9, THYR #### [facility] ([id number]) [address], [address] [place] [address] Hyaline casts LM Ql (Urine sed) 1 to 5 Normal 0-2 [facility] Comment on above: Performed By: #### 1 9123-9, THYR #### [facility] ([id number]) [address], [address] [place] [address] Ketones Ql (U) 15 mg/dL Abnormal NEG [facility] Comment on above: Performed By: #### 1 9123-9, THYR #### [facility] ([id number]) [address], [address] [place] [address] Leukocyte esterase Test strip Ql (U) Negative Normal NEG [facility] Comment on above: Performed By: #### 1 9123-9, THYR #### [facility] ([id number]) [address], [address] [place] [address] Nitrite Ql (U) Negative Normal NEG [facility] Comment on above: Performed By: #### 1 9123-9, THYR #### [facility] ([id number]) [address], [address] [place] [address] pH (U) 6.0 [pH] Normal 5.0-8.5 [facility] Comment on above: Performed By: #### 1 9123-9, THYR #### [facility] ([id number]) [address], [address] [place] [address] Protein Ql (U) 100 mg/dL Abnormal NEG [facility] Comment on above: Performed By: #### 1 9123-9, THYR #### [facility] ([id number]) [address], [address] [place] [address] R.B.CELLS 0 to 3 Normal 0-5 [facility] Comment on above: Performed By: #### 1 9123-9, THYR #### [facility] ([id number]) [address], [address] [place] [address] Specific gravity (U) [Rel density] 1.025 Normal 1.003-1.03 5 [facility] Comment on above: Performed By: #### 1 9123-9, THYR #### [facility] ([id number]) [address], [address] [place] [address] SQUAMOUS EPITHELIUM 0 to 3 Normal 0-5 [place] Comment on above: Performed By: #### 1 9123-9, THYR #### [facility] ([id number]) [address], [address] [place] [address] TURBIDITY CLEAR Normal CLEAR [facility] Comment on above: Performed By: #### 1 9123-9, THYR #### [facility] ([id number]) [address], [address] [place] [address] Urobilinogen Qn (U) 0.2 {Federico'U}/dL Normal <1.1 [facility] Comment on above: Performed By: #### 1 9123-9, THYR #### [facility] ([id number]) [address], [address] [place] [address] W.B.CELLS 0 to 3 Normal 0-5 [facility] Comment on above: Performed By: #### 1 9123-9, THYR #### [facility] ([id number]) [address], [address] [place] [address] BLOOD CULTUREon 06-27-2023 Bacteria identified Aer cx Nom (Bld) CULTURE RESULTS NO GROWTH 5 DAYS Normal [facility] Bacteria identified Aer cx Nom (Bld) CULTURE RESULTS MICROCOCCUS LUTEUS POSSIBLE COLLECTION CONTAMINATION. SINGLE POSITIVE CULTURE IS OF UNCERTAIN CLINICAL SIGNIFICANCE. SUGGEST CONTINUED MONITORING OF REMAINING BLOOD CULTURES. CONTACT MICROBIOLOGY IF FURTHER INFORMATION IS REQUIRED. No Staphylococcus species, Streptococcus species, Entercoccus feacalis, or E.faecium detected by PCR. Abnormal [facility] Comment on above: Performed By: #### 1 9123-9, THYR #### [facility] ([id number]) [address], [address] [place] [address] CBC AND AUTO DIFFon 06-27-19 24 ABSOLUTE BASOPHIL 0.1 X10E9/L Normal 0.0-0.2 [facility] Comment on above: Performed By: #### 1 9123-9, THYR #### [facility] ([id number]) [address], [address] [place] [address] ABSOLUTE NEUTROPHIL 14.4 X10E9/L High 1.5-6.6 [facility] Comment on above: Performed By: #### 1 9123-9, THYR #### [facility] ([id number]) [address], [address] [place] [address] Basophils/100 WBC (Bld) 0.6 % Normal [facility] Comment on above: Performed By: #### 1 9123-9, THYR #### [facility] ([id number]) [address] [address] [place] [address] Eosinophils (Bld) [#/Vol] 0.0 10*3/uL Normal 0.0-0.4 [facility] Comment on above: Performed By: #### 1 9123-9, THYR #### [facility] ([id number]) [address] [facility] [address] [place] [address] Eosinophils/100 WBC (Bld) 0.1 % Normal [facility] Comment on above: Performed By: #### 1 9123-9, THYR #### [facility] ([id number]) [address], [facility] [address] [place] [address] Erythrocyte distribution width (RBC) [Ratio] 13.1 % Normal 11.5-15.0 [facility] Comment on above: Performed By: #### 1 9123-9, THYR #### [facility] ([id number]) [address] [facility] [address] [place] [address] Hematocrit (Bld) [Volume fraction] 43.5 % Normal 35-47 [facility] Comment on above: Performed By: #### 1 9123-9, THYR #### [facility] ([id number]) [address] [address] Hemoglobin (Bld) [Mass/Vol] 15.0 g/dL Normal 11.7-15.5 [facility] Comment on above: Performed By: #### 1 9123-9, THYR #### [facility] ([id number]) [address] [address] Lymphocytes (Bld) [#/Vol] 2.3 10*3/uL Normal 1.0-3.5 [facility] Comment on above: Performed By: #### 1 9123-9, THYR #### [facility] ([id number]) [address], [address] [place] [address] Lymphocytes/100 WBC (Bld) 12.8 % Normal [facility] Comment on above: Performed By: #### 1 9123-9, THYR #### [facility] ([id number]) [address], [address] [place] [address] MCH (RBC) [Entitic mass] 30.7 pg Normal 27-34 [facility] Comment on above: Performed By: #### 1 9123-9, THYR #### [facility] ([id number]) [address], [address] [place] [address] MCHC (RBC) [Mass/Vol] 34.4 g/dL Normal 32-36 [facility] Comment on above: Performed By: #### 1 9123-9, THYR #### [facility] ([id number]) [address], [address] [place] [address] MCV (RBC) [Entitic vol] 89 fL Normal 80-100 [facility] Comment on above: Performed By: #### 1 9123-9, THYR #### [facility] ([id number]) [address], [address] [place] [address] Monocytes (Bld) [#/Vol] 1.4 10*3/uL High 0-0.9 [facility] Comment on above: Performed By: #### 1 9123-9, THYR #### [facility] ([id number]) [address], [address] [place] [address] Monocytes/100 WBC (Bld) 7.5 % Normal [facility] Comment on above: Performed By: #### 1 9123-9, THYR #### [facility] ([id number]) [address], [address] [place] [address] Neutrophils/100 WBC (Bld) 79.0 % Normal [facility] Comment on above: Performed By: #### 1 9123-9, THYR #### [facility] ([id number]) [address], [address] [place] [address] Platelet mean volume (Bld) [Entitic vol] 8.2 fL Normal 7-12 [facility] Comment on above: Performed By: #### 1 9123-9, THYR #### [facility] ([id number]) [address], [address] [place] [address] Platelets (Bld) [#/Vol] 468 10*3/uL High 150-450 [facility] Comment on above: Performed By: #### 1 9123-9, THYR #### [facility] ([id number]) [address], [address] [place] [address] RBC COUNT 4.87 X10E12/L Normal 3.80-5.20 [facility] Comment on above: Performed By: #### 1 9123-9, THYR #### [facility] ([id number]) [address], [address] [place] [address] WBC (Bld) [#/Vol] 18.2 10*3/uL High 4.0-11.0 [place] Comment on above: Performed By: #### 1 9123-9, THYR #### [facility] ([id number]) [address], [address] [place] [address] COMPREHENSIVE METABOLIC PANE Pee 06-27-2023 Albumin [Mass/Vol] 5.2 g/dL Normal 3.2-5.3 [facility] Comment on above: Performed By: #### 1 9123-9, THYR #### [facility] ([id number]) [address], [address] [place] [address] ALP [Catalytic activity/Vol] 66 U/L Normal 39-130 [facility] Comment on above: Performed By: #### 1 9123-9, THYR #### [facility] ([id number]) [address], [address] [place] [address] ALT [Catalytic activity/Vol] 96 U/L High 0-31 [facility] Comment on above: Performed By: #### 1 9123-9, THYR #### [facility] ([id number]) [address], [address] [place] [address] Anion gap [Moles/Vol] 17 mmol/L High 5-15 [facility] Comment on above: Performed By: #### 1 9123-9, THYR #### [facility] ([id number]) [address], [address] [place] [address] AST [Catalytic activity/Vol] 93 U/L High 0-41 [facility] Comment on above: Performed By: #### 1 9123-9, THYR #### [facility] ([id number]) [address], [address] [place] [address] Bilirubin [Mass/Vol] 1.8 mg/dL High 0.3-1.2 [facility] Comment on above: Performed By: #### 1 9123-9, THYR #### [facility] ([id number]) [address], [address] [place] [address] Calcium [Mass/Vol] 9.5 mg/dL Normal 8.5-10.5 [facility] Comment on above: Performed By: #### 1 9123-9, THYR #### [facility] ([id number]) [address], [address] [place] [address] Chloride [Moles/Vol] 95 mmol/L Low 98-109 [facility] Comment on above: Performed By: #### 1 9123-9, THYR #### [facility] ([id number]) [address], [address] [place] [address] CO2 [Moles/Vol] 20 mmol/L Low 22-32 [facility] Comment on above: Performed By: #### 1 9123-9, THYR #### [facility] ([id number]) [address] [place] [address] Creatinine [Mass/Vol] 1.38 mg/dL High 0.40-1.00 [facility] Comment on above: Result Comment: METH OD TRACEABLE TO IDMS STANDARD Performed By: #### 1 9123-9, THYR #### [facility] ([id number]) [address], [address] [place] [address] GFR/1.73 sq M.predicted among non-blacks MDRD (S/P/Bld) [Vol rate/Area] 52 mL/min/{1.73_m2} Low >59 [facility] Comment on above: Result Comment: Reported eGFR is based on the CKD-EPI 2020 equation that does not use a race coefficient. Performed By: #### 1 9123-9, THYR #### [facility] ([id number]) [address], [address] [place] [address] Glucose [Mass/Vol] 261 mg/dL High 65-99 [facility] Comment on above: Performed By: #### 1 9123-9, THYR #### [facility] ([id number]) [address], [address] [place] [address] Potassium [Moles/Vol] 2.8 mmol/L Low 3.5-5.0 [facility] Comment on above: Performed By: #### 1 9123-9, THYR #### [facility] ([id number]) [address], [address] [place] [address] Protein [Mass/Vol] 9.1 g/dL High 6.0-8.0 [facility] Comment on above: Performed By: #### 1 9123-9, THYR #### [facility] ([id number]) [address], [address] [place] [address] Sodium [Moles/Vol] 132 mmol/L Low 134-146 [facility] Comment on above: Performed By: #### 1 9123-9, THYR #### [facility] ([id number]) [address], [address] [place] [address] Urea nitrogen [Mass/Vol] 16 mg/dL Normal 5-23 [facility] Comment on above: Performed By: #### 1 9123-9, THYR #### [facility] ([id number]) [address], [address] [place] [address] CT ABDOMEN AND PELVIS W CONT on 06-27-2023 CT ABDOMEN AND PELVIS W CONT CT ABDOMEN AND PELVIS W CONT CLINICAL INFORMATION: Acute abdominal pain. Elevated white blood cell count. Vomiting x2 days. COMPARISON: CT abdomen and pelvis 06/26/2023 TECHNIQUE: Contrast-enhanced CT images of the abdomen and pelvis were obtained. All CT scans at this facility use dose modulation, iterative reconstruction, and/or weight based dosing when appropriate to reduce radiation dose to as low as reasonably achievable. FINDINGS: LOWER CHEST: Lung bases are normal. Heart size is normal. No pericardial effusion. LIVER AND BILIARY: Hepatic steatosis. No focal hepatic mass. Status post cholecystectomy. Prominent common bile duct likely reservoir effect. PANCREAS: Unremarkable SPLEEN: Within normal limits. ADRENALS: Within normal limits. 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 No collecting system dilatation or calculus. The urinary bladder is unremarkable. GI TRACT AND PERITONEUM: No dilated bowel loops. No free air or significant free fluid. Submucosal fat deposition within the ascending colon along with mild hyperenhancement of the colon now involving the ascending and transverse colon. Mild hyperenhancement of the proximal duodenum. Similar-appearing mild hyperenhancement of the terminal ileum. Prominent vasa recta again demonstrated throughout the colon. Appendix is unremarkable. VASCULATURE: Abdominal aorta is normal in course and caliber. LYMPH NODES: Within normal limits. REPRODUCTIVE ORGANS: Uterus and bilateral adnexa are unremarkable MUSCULOSKELETAL/ABDOMINAL WALL: No acute osseous abnormalities. Degenerative of the lumbar spine. Previous umbilical hernia repair. IMPRESSION: Mild colitis involving the ascending and transverse colon, as well as possibly mild duodenitis and terminal ileitis. Likely infectious or inflammatory etiology. Approved by Resident Sue Warner MD on 06/27/2023 8:40 PM I, Clayton Ferrell MD have personally reviewed the image(s) and agree with and/or edited the report Finalized by Clayton Ferrell MD on 06/27/2023 9:28 PM Normal [facility] LIPASEon 06-27-2023 Lipase [Catalytic activity/Vol] 32 U/L Normal 17-40 [facility] Comment on above: Performed By: #### 1 9123-9, THYR #### [facility] ([id number]) [address], [address] [place] [address] Lactate (P remy) [Moles/Vol]o n 06-27-2023 LACTATE W/REFLEX 1.8 mmol/L Normal 0.4-2.0 [facility] Comment on above: Result Comment: Result did not trigger repeat Lactate, re-order if needed. Performed By: #### 1 9123-9, THYR #### [facility] ([id number]) [address], [address] [place] [address] SARS/FLU A+B/RSV by NAAT/Mol ecularon 06-27-2023 SARS/FLU A+B/RSV by NAAT/Molecular FLU A PCR Negative (qualifier value) FLU B PCR Negative (qualifier value) RSV by PCR Negative (qualifier value) SARS CoV 2 Not detected (qualifier value) NOTE The Xpert Xpress SARS-CoV-2/Flu/RSV Plus test is a rapid, multiplexed real-time RT-PCR test intended for the simultaneous qualitative detection and differentiation of SARS-CoV-2, influenza A, influenza B and respiratory syncytial virus (RSV) viral RNA from individuals suspected of respiratory viral infection consistent with COVID-19 by their healthcare provider. This test has not been validated in asymptomatic patients. The Xpert Xpress SARS-CoV-2 test is intended for use by qualified and trained operators who are performing tests using either [employer] or [employer] systems and is limited to laboratories that meet the CLIA requirements to perform high and moderate complexity tests. The Xpert Xpress SARS-CoV-2/Flu/RSV Plus is only for use under the Food and Drug Administration's Emergency Use Authorization. Results are for the simultaneous detection and differentiation of SARS-CoV-2, influenza A, influenza B and RSV nucleic acids in clinical specimens. SARS-CoV-2, influenza A, influenza B and RSV RNA identified by this test are generally detectable in upper respiratory samples during the acute phase of infection. Positive results are indicative of the presence of the identified virus, but do not rule out bacterial infection or co-infection with other pathogens not detected by this test. Clinical correlation with patient history and other diagnostic information is necessary to determine patient infection status. The agent detected may not be the definite cause of disease. Negative results do not preclude SARS-CoV-2, influenza A, influenza B and RSV infection and should not be used as the sole basis for treatment or other patient management decisions. Negative results must be combined with clinical observations, patient history and epidemiological information. An Invalid result may occur with specimen-associated inhibition unable to be resolved with specimen repeat. Fact Sheet for Healthcare Providers: https://www.fda.gov/media/1 63466/download Fact Sheet for Patients: https://www.fda.gov/media/1 81077/download Normal [facility] Comment on above: Performed By: #### 1 9123-9, THYR #### [facility] ([id number]) [address] [place] [address], [address] [place] [address] CBC AND AUTO DIFFon 06-26-19 24 ABSOLUTE BASOPHIL 0.1 X10E9/L Normal 0.0-0.2 [facility] Comment on above: Performed By: #### B MP #### [facility] ([id number]) [address] [place] [address] ABSOLUTE NEUTROPHIL 8.8 X10E9/L High 1.5-6.6 [facility] Comment on above: Performed By: #### B MP #### [facility] ([id number]) [address], [address] [place] [address] Basophils/100 WBC (Bld) 0.5 % Normal [facility] Comment on above: Performed By: #### B MP #### [facility] ([id number]) [address], [address] [place] [address] Eosinophils (Bld) [#/Vol] 0.0 10*3/uL Normal 0.0-0.4 [facility] Comment on above: Performed By: #### B MP #### [facility] ([id number]) [address], [address] [place] [address] Eosinophils/100 WBC (Bld) 0.1 % Normal [facility] Comment on above: Performed By: #### B MP #### [facility] ([id number]) [address], [address] [place] [address] Erythrocyte distribution width (RBC) [Ratio] 13.3 % Normal 11.5-15.0 [facility] Comment on above: Performed By: #### B MP #### [facility] ([id number]) [address], [address] [place] [address] Hematocrit (Bld) [Volume fraction] 39.1 % Normal 35-47 [facility] Comment on above: Performed By: #### B MP #### [facility] ([id number]) [address], [address] [place] [address] Hemoglobin (Bld) [Mass/Vol] 13.3 g/dL Normal 11.7-15.5 [facility] Comment on above: Performed By: #### B MP #### [facility] ([id number]) [address], [address] [place] [address] Lymphocytes (Bld) [#/Vol] 1.2 10*3/uL Normal 1.0-3.5 [facility] Comment on above: Performed By: #### B MP #### [facility] ([id number]) [address], [address] [place] [address] Lymphocytes/100 WBC (Bld) 11.5 % Normal [facility] Comment on above: Performed By: #### B MP #### [facility] ([id number]) [address], [address] [place] [address] MCH (RBC) [Entitic mass] 30.8 pg Normal 27-34 [facility] Comment on above: Performed By: #### B MP #### [facility] ([id number]) [address], [address] [place] [address] MCHC (RBC) [Mass/Vol] 34.1 g/dL Normal 32-36 [facility] Comment on above: Performed By: #### B MP #### [facility] ([id number]) [address], [address] [place] [address] MCV (RBC) [Entitic vol] 90 fL Normal 80-100 [facility] Comment on above: Performed By: #### B MP #### [facility] ([id number]) [address], [address] [place] [address] Monocytes (Bld) [#/Vol] 0.3 10*3/uL Normal 0-0.9 [facility] Comment on above: Performed By: #### B MP #### [facility] ([id number]) [address], [address] [place] [address] Monocytes/100 WBC (Bld) 3.0 % Normal [facility] Comment on above: Performed By: #### B MP #### [facility] ([id number]) [address], [address] [place] [address] Neutrophils/100 WBC (Bld) 84.9 % Normal [facility] Comment on above: Performed By: #### B MP #### [facility] ([id number]) [address] [address] [place] [address] Platelet mean volume (Bld) [Entitic vol] 8.0 fL Normal 7-12 [facility] Comment on above: Performed By: #### B MP #### [facility] ([id number]) [address] [address] [place] [address] Platelets (Bld) [#/Vol] 335 10*3/uL Normal 150-450 [facility] Comment on above: Performed By: #### B MP #### [facility] ([id number]) [address] [place] [address] RBC COUNT 4.32 X10E12/L Normal 3.80-5.20 [facility] Comment on above: Performed By: #### B MP #### [facility] ([id number]) [address] [address] [place] [address] WBC (Bld) [#/Vol] 10.4 10*3/uL Normal 4.0-11.0 [place] Comment on above: Performed By: #### B MP #### [facility] ([id number]) [address] [address] [place] [address] COMPREHENSIVE METABOLIC PANE Pee 06-26-2023 Albumin [Mass/Vol] 4.9 g/dL Normal 3.2-5.3 [facility] Comment on above: Performed By: #### B MP #### [facility] ([id number]) [address] [address] [place] [address] ALP [Catalytic activity/Vol] 56 U/L Normal 39-130 [facility] Comment on above: Performed By: #### B MP #### [facility] ([id number]) [address] [place] [address] ALT [Catalytic activity/Vol] 83 U/L High 0-31 [facility] Comment on above: Performed By: #### B MP #### [facility] ([id number]) [address], [address] [place] [address] Anion gap [Moles/Vol] 14 mmol/L Normal 5-15 [facility] Comment on above: Performed By: #### B MP #### [facility] ([id number]) [address], [address] [place] [address] AST [Catalytic activity/Vol] 48 U/L High 0-41 [facility] Comment on above: Performed By: #### B MP #### [facility] ([id number]) [address], [address] [place] [address] Bilirubin [Mass/Vol] 0.9 mg/dL Normal 0.3-1.2 [facility] Comment on above: Performed By: #### B MP #### [facility] ([id number]) [address], [address] [place] [address] Calcium [Mass/Vol] 9.4 mg/dL Normal 8.5-10.5 [facility] Comment on above: Performed By: #### B MP #### [facility] ([id number]) [address], [address] [place] [address] Chloride [Moles/Vol] 104 mmol/L Normal 98-109 [facility] Comment on above: Performed By: #### B MP #### [facility] ([id number]) [address], [address] [place] [address] CO2 [Moles/Vol] 15 mmol/L Low 22-32 [facility] Comment on above: Performed By: #### B MP #### [facility] ([id number]) [address], [address] [place] [address] Creatinine [Mass/Vol] 0.81 mg/dL Normal 0.40-1.00 [facility] Comment on above: Result Comment: METH OD TRACEABLE TO IDMS STANDARD Performed By: #### B MP #### [facility] ([id number]) [address], [address] [place] [address] eGFR (CKD-EPI) NON-RACE DEPENDENT >90 Normal >59 [facility] Comment on above: Result Comment: Reported eGFR is based on the CKD-EPI 2020 equation that does not use a race coefficient. Performed By: #### B MP #### [facility] ([id number]) [address], [address] [place] [address] Glucose [Mass/Vol] 230 mg/dL High 65-99 [facility] Comment on above: Performed By: #### B MP #### [facility] ([id number]) [address], [address] [place] [address] Potassium [Moles/Vol] 2.9 mmol/L Low 3.5-5.0 [facility] Comment on above: Performed By: #### B MP #### [facility] ([id number]) [address], [address] [place] [address] Protein [Mass/Vol] 7.8 g/dL Normal 6.0-8.0 [facility] Comment on above: Performed By: #### B MP #### [facility] ([id number]) [address], [address] [place] [address] Sodium [Moles/Vol] 133 mmol/L Low 134-146 [facility] Comment on above: Performed By: #### B MP #### [facility] ([id number]) [address], [address] [place] [address] Urea nitrogen [Mass/Vol] 6 mg/dL Normal 5-23 [facility] Comment on above: Performed By: #### B MP #### [facility] ([id number]) [address], [address] [place] [address] CT ABDOMEN AND PELVIS W CONT on 06-26-2023 CT ABDOMEN AND PELVIS W CONT CT ABDOMEN AND PELVIS W CONT CLINICAL INFORMATION: Abdominal pain, vomiting. COMPARISON: CT abdomen and pelvis 06/10/2021 TECHNIQUE: Contrast-enhanced CT images of the abdomen and pelvis were obtained. All CT scans at this facility use dose modulation, iterative reconstruction, and/or weight based dosing when appropriate to reduce radiation dose to as low as reasonably achievable. FINDINGS: LOWER CHEST: The visualized lung bases are unremarkable. The heart size is normal. No pericardial effusion. LIVER AND BILIARY: Hepatic steatosis. No focal hepatic mass. Status post cholecystectomy. Prominent common bile duct likely due to reservoir effect. PANCREAS: The pancreas is unremarkable. No focal pancreatic mass, ductal dilatation, or peripancreatic fat stranding. SPLEEN: Within normal limits. ADRENALS: Within normal limits. KIDNEYS, URETERS, AND BLADDER: The kidneys are unremarkable. No urinary tract stones or collecting system dilatation. The urinary bladder is unremarkable. GI TRACT AND PERITONEUM: No dilated bowel loops. Submucosal fat deposition of the ascending colon with mild fat stranding. Prominent vasa recta throughout the colon. Mild hyperenhancement terminal ileum, without significant adjacent fat stranding. No free air or significant free fluid. The appendix is unremarkable. VASCULATURE: The abdominal aorta is normal in course and caliber. The IVC is right-sided. LYMPH NODES: Within normal limits. REPRODUCTIVE ORGANS: The uterus and bilateral adnexa are unremarkable MUSCULOSKELETAL/ABDOMINAL WALL: No acute osseous abnormalities. Degenerative changes of the lumbar spine. Previous umbilical hernia repair. IMPRESSION: * Mild ascending colitis and terminal ileitis, infectious or inflammatory etiology. There is prominent submucosal fat deposition of the cecum, consider an underlying history of inflammatory bowel disease in the appropriate clinical setting. * Hepatic steatosis. Approved by Resident Sue Warner MD on 06/26/2023 3:51 PM Keegan Dumont have personally reviewed the image(s) and agree with and/or edited the report Finalized by Keegan Law on 06/26/2023 4:39 PM Normal [facility] Glucose Glucometer (dC) [M ass/Vol]on 06-26-2023 Glucose [Mass/Vol] 217 mg/dL High 65-99 [facility] HCG ( test) Ql (U)o n 06-26-2023 Beta HCG ( test) Ql (U) Negative Normal NEG [facility] Comment on above: Performed By: #### B MP #### [facility] ([id number]) [address], [address] [place] [address] LIPASEon 06-26-2023 Lipase [Catalytic activity/Vol] 24 U/L Normal 17-40 [facility] Comment on above: Performed By: #### B MP #### [facility] ([id number]) [address], [address] [place] [address] MAGNESIUMon 06-26-2023 Magnesium [Mass/Vol] 1.4 mg/dL Low 1.8-2.6 [facility] Comment on above: Performed By: #### B MP #### [facility] ([id number]) [address], [address] [place] [address] URN MACROSCOPIC NURon 2023 BILIRUBIN SAE Negative Normal NEG [facility] Comment on above: Performed By: #### B MP #### [facility] ([id number]) [address], [address] [place] [address] BLOOD/HGB SAE Negative Normal NEG [facility] Comment on above: Performed By: #### B MP #### [facility] ([id number]) [address], [address] [place] [address] GLUCOSE SAE 500 mg/dL Abnormal NEG [facility] Comment on above: Performed By: #### B MP #### [facility] ([id number]) [address], [address] [place] [address] KETONES SAE >=160 Abnormal NEG [facility] Comment on above: Performed By: #### B MP #### [facility] ([id number]) [address], [address] [place] [address] LEUKOCYTE ESTERASE SAE Negative Normal NEG [facility] Comment on above: Performed By: #### B MP #### [facility] ([id number]) [address], [address] [place] [address] NITRITE SAE Negative Normal NEG [facility] Comment on above: Performed By: #### B MP #### [facility] ([id number]) [address], [address] [place] [address] PH SAE 5.5 Normal 5.0-8.5 [facility] Comment on above: Performed By: #### B MP #### [facility] ([id number]) [address] [place] [address] PROTEIN SAE Trace Abnormal NEG [facility] Comment on above: Performed By: #### B MP #### [facility] ([id number]) [address], [address] [place] [address] SPECIFIC GRAVITY SAE 1.015 Normal 1.003-1 .03 5 [facility] Comment on above: Performed By: #### B MP #### [facility] ([id number]) [address], [address] [place] [address] UROBILINOGEN SAE 0.2 eu/dL Normal <1.1 [facility] Comment on above: Performed By: #### B MP #### [facility] ([id number]) [address], [address] [place] [address] BASIC METABOLIC PANLon 06-06 Anion gap [Moles/Vol] 12 mmol/L Normal 5-15 [facility] Comment on above: Performed By: #### C BCA, BMP, 6873-4 #### [facility] ([id number]) [address] [place] [address], [place] [address] Calcium [Mass/Vol] 9.8 mg/dL Normal 8.5-10.5 [facility] Comment on above: Performed By: #### C PAVITHRA HAYNES, 6873-4 #### [facility] ([id number]) [address] [place] [address] 89897 Chloride [Moles/Vol] 95 mmol/L Low 98-109 [facility] Comment on above: Performed By: #### C PAVITHRA HAYNES, 6873-4 #### [facility] ([id number]) [address] [place] [address] 57855 CO2 [Moles/Vol] 25 mmol/L Normal 22-32 [facility] Comment on above: Performed By: #### C PAVITHRA HAYNES, 6873-4 #### [facility] ([id number]) [address] [place] [address] 59515 Creatinine [Mass/Vol] 1.00 mg/dL Normal 0.40-1.00 [facility] Comment on above: Result Comment: METH OD TRACEABLE TO IDMS STANDARD Performed By: #### C PAVITHRA HAYNES, 6873-4 #### [facility] ([id number]) [address] [place] [address] 43654 GFR/1.73 sq M.predicted among non-blacks MDRD (S/P/Bld) [Vol rate/Area] 76 mL/min/{1.73_m2} Normal >59 [facility] Comment on above: Result Comment: Reported eGFR is based on the CKD-EPI 2020 equation that does not use a race coefficient. Performed By: #### C PAVITHRA HAYNES, 6873-4 #### [facility] ([id number]) [address] [place] [address] 28653 Glucose [Mass/Vol] 468 mg/dL Critically high 65-99 [facility] Comment on above: Performed By: #### C PAVITHRA HAYNES, 6873-4 #### [facility] ([id number]) [address] [place] [address] 30305 Potassium [Moles/Vol] 3.7 mmol/L Normal 3.5-5.0 [facility] Comment on above: Performed By: #### C PAVITHRA HAYNES, 6873-4 #### [facility] ([id number]) [address] [place] [address] 58297 Sodium [Moles/Vol] 132 mmol/L Low 134-146 [facility] Comment on above: Performed By: #### C PAVITHRA HAYNES, 6873-4 #### [facility] ([id number]) [address] [place] [address] 31702 Urea nitrogen [Mass/Vol] 13 mg/dL Normal 5-23 [facility] Comment on above: Performed By: #### PAVITHRA Ayon BCA, 6873-4 #### [facility] ([id number]) [address] [place] [address] 75067 Beta hydroxybutyrate [Moles/ Vol]on 06-06-2023 BetaHydroxybutyrate 0.09 mmol/L Normal 0.02-0.27 [facility] Comment on above: Performed By: #### B MP #### [facility] ([id number]) [address], [address] [place] [address] CBC AND AUTO DIFFon 06-06-19 24 ABSOLUTE BASOPHIL 0.0 X10E9/L Normal 0.0-0.2 [facility] Comment on above: Performed By: #### C PAVITHRA HAYNES, 6873-4 #### [facility] ([id number]) [address] [place] [address] 12897 ABSOLUTE NEUTROPHIL 4.0 X10E9/L Normal 1.5-6.6 [facility] Comment on above: Performed By: #### PAVITHRA Ayon BCA, 6873-4 #### [facility] ([id number]) [address] [place] [address] 60309 Basophils/100 WBC (Bld) 0.5 % Normal [facility] Comment on above: Performed By: #### PAVITHAR Ayon BCA, 6873-4 #### [facility] ([id number]) [address] [place] [address] 88349 Eosinophils (Bld) [#/Vol] 0.2 10*3/uL Normal 0.0-0.4 [facility] Comment on above: Performed By: #### PAVITHRA Ayon BCA, 734 #### [facility] ([id number]) [address] [place] [address] 43534 Eosinophils/100 WBC (Bld) 2.5 % Normal [facility] Comment on above: Performed By: #### PAVITHRA Ayon BCA, 734 #### [facility] ([id number]) [address] [place] [address] 25840 Erythrocyte distribution width (RBC) [Ratio] 13.3 % Normal 11.5-15.0 [facility] Comment on above: Performed By: #### PAVITHRA Ayon BCA, 734 #### [facility] ([id number]) [address] [place] [address] 31232 Hematocrit (Bld) [Volume fraction] 40.0 % Normal 35-47 [facility] Comment on above: Performed By: #### PAVITHRA Ayon BCA, 73 #### [facility] ([id number]) [address] [place] [address] 01603 Hemoglobin (Bld) [Mass/Vol] 13.5 g/dL Normal 11.7-15.5 [facility] Comment on above: Performed By: #### PAVITHRA Ayon BCA, 73-4 #### [facility] ([id number]) [address] [place] [address] 40139 Lymphocytes (Bld) [#/Vol] 3.2 10*3/uL Normal 1.0-3.5 [facility] Comment on above: Performed By: #### PAVITHRA Ayon BCA, 734 #### [facility] ([id number]) [address] [place] [address] 07894 Lymphocytes/100 WBC (Bld) 39.7 % Normal [facility] Comment on above: Performed By: #### PAVITHRA Ayon BCA, 6872-08 #### [facility] ([id number]) [address] [place] [address] 95627 MCH (RBC) [Entitic mass] 30.8 pg Normal 27-34 [facility] Comment on above: Performed By: #### PAVITHRA Ayon BCA, 6872-08 #### [facility] ([id number]) [address] [place] [address] 55531 MCHC (RBC) [Mass/Vol] 33.6 g/dL Normal 32-36 [facility] Comment on above: Performed By: #### PAVITHRA Ayon BCA, 6872-08 #### [facility] ([id number]) [address] [place] [address] 72589 MCV (RBC) [Entitic vol] 92 fL Normal 80-100 [facility] Comment on above: Performed By: #### PAVITHRA Ayon BCA, 73 #### [facility] ([id number]) [address] [place] [address] 93190 Monocytes (Bld) [#/Vol] 0.6 10*3/uL Normal 0-0.9 [facility] Comment on above: Performed By: #### PAVITHRA Ayon BCA, 73 #### [facility] ([id number]) [address] [place] [address] 24579 Monocytes/100 WBC (Bld) 7.0 % Normal [facility] Comment on above: Performed By: #### PAVITHRA Ayon BCA, 73 #### [facility] ([id number]) [address] [place] [address] 55352 Neutrophils/100 WBC (Bld) 50.3 % Normal [facility] Comment on above: Performed By: #### PAVITHRA Ayon BCA, 6873-4 #### [facility] ([id number]) [address] [place] [address] 33773 Platelet mean volume (Bld) [Entitic vol] 8.3 fL Normal 7-12 [facility] Comment on above: Performed By: #### PAVITHRA Ayon BCA, 6873-4 #### [facility] ([id number]) [address] [place] [address] 08698 Platelets (Bld) [#/Vol] 378 10*3/uL Normal 150-450 [facility] Comment on above: Performed By: #### PAVITHRA Ayon BCA, 6873-4 #### [facility] ([id number]) [address] [place] [address] 38752 RBC COUNT 4.38 X10E12/L Normal 3.80-5.20 [facility] Comment on above: Performed By: #### PAVITHRA Ayon BCA, 6873-4 #### [facility] ([id number]) [address] [place] [address] 12008 WBC (Bld) [#/Vol] 8.0 10*3/uL Normal 4.0-11.0 [facility] Comment on above: Performed By: #### PAVITHRA Ayon BCA, 6873-4 #### [facility] ([id number]) [address] [place] [address] 72363 Glucose Glucometer (BldC) [M ass/Vol]on 06-06-2023 Glucose [Mass/Vol] 443 mg/dL Critically high 65-99 [facility] Glucose [Mass/Vol] 389 mg/dL High 65-99 [facility] URN MACROSCOPIC NURon 2023 BILIRUBIN SAE Negative Normal NEG [facility] Comment on above: Performed By: #### N UM #### [facility] ([id number]) [address] [place] [address] 77424 BLOOD/HGB SAE Negative Normal NEG [facility] Comment on above: Performed By: #### N UM #### [facility] ([id number]) [address] [place] [address] [place] [address] GLUCOSE SAE >=1000 Abnormal NEG [facility] Comment on above: Performed By: #### N UM #### [facility] ([id number]) [address] [place] [address] 61910 KETONES SAE Negative Normal NEG [facility] Comment on above: Performed By: #### N UM #### [facility] ([id number]) [address] [place] [address] [place] [address] LEUKOCYTE ESTERASE SAE Negative Normal NEG [facility] Comment on above: Performed By: #### N UM #### [facility] ([id number]) [address] [place] [address] 98491 NITRITE SAE Negative Normal NEG [facility] Comment on above: Performed By: #### N UM #### [facility] ([id number]) [address] [place] [address] [place] [address] PH SAE 6.0 Normal 5.0-8.5 [facility] Comment on above: Performed By: #### N UM #### [facility] ([id number]) [address] [place] [address] 50536 PROTEIN SAE Negative Normal NEG [facility] Comment on above: Performed By: #### N UM #### [facility] ([id number]) [address] [place] [address] [place] [address] SPECIFIC GRAVITY SAE 1.015 Normal 1.003-[address] [place] [address] Comment on above: Performed By: #### N UM #### [facility] ([id number]) [address] [place] [address] 65541 UROBILINOGEN SAE 0.2 eu/dL Normal <1.1 [facility] Comment on above: Performed By: #### N UM #### [facility] ([id number]) [address] [place] [address] 05061 VENOUS BLOOD GASon 4 FLORA'S TEST Normal [facility] Comment on above: Performed By: #### V BG #### [facility] ([id number]) [address] [place] [address] 95952 Base excess Calc (Bld) [Moles/Vol] 1.0 mmol/L Normal 0.0-2.0 [facility] Comment on above: Performed By: #### V BG #### [facility] ([id number]) [address] [place] [address] 78389 Body temperature 98.6 [degF] Normal 37.0 [facility] Comment on above: Performed By: #### V BG #### [facility] ([id number]) [address] [place] [address] 30258 HCO3 (Bld) [Moles/Vol] 26.8 mmol/L High 20.0-24.0 [facility] Comment on above: Performed By: #### V BG #### [facility] ([id number]) [address] [place] [address] 13618 INSP. O2 CONC. 21 % Normal [facility] Comment on above: Performed By: #### V BG #### [facility] ([id number]) [address] [place] [address] 38986 Oxygen saturation in Blood 53.0 % Low >80.0 [facility] Comment on above: Performed By: #### V BG #### [facility] ([id number]) [address] [place] [address] [place] [address] OXYGEN SOURCE [employer] Normal [facility] Comment on above: Performed By: #### V BG #### [facility] ([id number]) [address] [place] [address] [place] [address] PCO2, VENOUS 47.7 MMHG Normal 35-50 [facility] Comment on above: Performed By: #### V BG #### [facility] ([id number]) [address] [place] [address] [place] [address] PH, VENOUS 7.358 Normal 7.320-7.42 0 [facility] Comment on above: Performed By: #### V BG #### [facility] ([id number]) [address] [place] [address] 53010 PO2, VENOUS 30 MMHG Normal 30-50 [facility] Comment on above: Performed By: #### V BG #### [facility] ([id number]) [address] [place] [address] [place] [address] SAMPLE SITE N/A Normal [facility] Comment on above: Performed By: #### V BG #### [facility] ([id number]) [address] [place] [address] [place] [address] SAMPLE TYPE VENOUS Normal [facility] Comment on above: Performed By: #### V BG #### [facility] ([id number]) [address] [place] [address] 24755 SARS/FLU A+B/RSV by NAAT/Mol ularon 05-31-2023 SARS/FLU A+B/RSV by NAAT/Molecular FLU A PCR Negative (qualifier value) FLU B PCR Negative (qualifier value) RSV by PCR Negative (qualifier value) SARS CoV 2 Not detected (qualifier value) NOTE The Xpert Xpress SARS-CoV-2/Flu/RSV Plus test is a rapid, multiplexed real-time RT-PCR test intended for the simultaneous qualitative detection and differentiation of SARS-CoV-2, influenza A, influenza B and respiratory syncytial virus (RSV) viral RNA from individuals suspected of respiratory viral infection consistent with COVID-19 by their healthcare provider. This test has not been validated in asymptomatic patients. The Xpert Xpress SARS-CoV-2 test is intended for use by qualified and trained operators who are performing tests using either Nexgence or Olapic systems and is limited to laboratories that meet the CLIA requirements to perform high and moderate complexity tests. The Xpert Xpress SARS-CoV-2/Flu/RSV Plus is only for use under the Food and Drug Administration's Emergency Use Authorization. Results are for the simultaneous detection and differentiation of SARS-CoV-2, influenza A, influenza B and RSV nucleic acids in clinical specimens. SARS-CoV-2, influenza A, influenza B and RSV RNA identified by this test are generally detectable in upper respiratory samples during the acute phase of infection. Positive results are indicative of the presence of the identified virus, but do not rule out bacterial infection or co-infection with other pathogens not detected by this test. Clinical correlation with patient history and other diagnostic information is necessary to determine patient infection status. The agent detected may not be the definite cause of disease. Negative results do not preclude SARS-CoV-2, influenza A, influenza B and RSV infection and should not be used as the sole basis for treatment or other patient management decisions. Negative results must be combined with clinical observations, patient history and epidemiological information. An Invalid result may occur with specimen-associated inhibition unable to be resolved with specimen repeat. Fact Sheet for Healthcare Providers: https://www.fda.gov/media/1 04243/download Fact Sheet for Patients: https://www.fda.gov/media/1 31061/download Normal [facility] Comment on above: Performed By: #### C OVFLR #### [facility] ([id number]) [address] [place] [address], [place] [address] MAGNESIUMon 05-22-2023 Magnesium [Mass/Vol] 1.5 mg/dL Low 1.8-2.6 [facility] Comment on above: Performed By: #### 1 9123-9, THYR #### [facility] ([id number]) [address], [address] [place] [address] THYROID PROFILEon 05-22-2023 Free T4 [Mass/Vol] 0.82 ng/dL Normal 0.61-1.60 [facility] Comment on above: Performed By: #### 1 9123-9, THYR #### [facility] ([id number]) [address], [address] [place] [address] TSH 1.11 uIU/mL Normal 0.49-4.67 [facility] Comment on above: Performed By: #### 1 9123-9, THYR #### [facility] ([id number]) [address], [address] [place] [address] XR ANKLE 3+ VIEWS RIGHTon XR ANKLE 3+ VIEWS RIGHT CLINICAL HISTORY: Right ankle pain COMPARISON: NONE. ANKLE FINDINGS: There are no lytic or sclerotic bone lesions. There is no acute fracture or subluxation. There are no radiopaque foreign bodies. IMPRESSION: There are no acute osseous changes. ELECTRONICALLY SIGNED BY: Gordon Neri MD Normal Not Available Comment on above: Order Comment: Suspe cted ankle sprain. BASIC METABOLIC PANLon 05-07 Anion gap [Moles/Vol] 8 mmol/L Normal 5-15 [facility] Comment on above: Performed By: #### B MP #### [facility] ([id number]) [address], [address] [place] [address] Calcium [Mass/Vol] 9.4 mg/dL Normal 8.5-10.5 [facility] Comment on above: Performed By: #### B MP #### [facility] ([id number]) [address] [place] [address] Chloride [Moles/Vol] 105 mmol/L Normal 98-109 [facility] Comment on above: Performed By: #### B MP #### [facility] ([id number]) [address], [address] [place] [address] CO2 [Moles/Vol] 24 mmol/L Normal 22-32 [facility] Comment on above: Performed By: #### B MP #### [facility] ([id number]) [address], [address] [place] [address] Creatinine [Mass/Vol] 0.83 mg/dL Normal 0.40-1.00 [facility] Comment on above: Result Comment: METH OD TRACEABLE TO IDMS STANDARD Performed By: #### B MP #### [facility] ([id number]) [address], [address] [place] [address] eGFR (CKD-EPI) NON-RACE DEPENDENT >90 Normal >59 [facility] Comment on above: Result Comment: Reported eGFR is based on the CKD-EPI 2020 equation that does not use a race coefficient. Performed By: #### B MP #### [facility] ([id number]) [address], [address] [place] [address] Glucose [Mass/Vol] 120 mg/dL High 65-99 [facility] Comment on above: Performed By: #### B MP #### [facility] ([id number]) [address], [address] [place] [address] Potassium [Moles/Vol] 3.7 mmol/L Normal 3.5-5.0 [facility] Comment on above: Performed By: #### B MP #### [facility] ([id number]) [address], [address] [place] [address] Sodium [Moles/Vol] 137 mmol/L Normal 134-146 [facility] Comment on above: Performed By: #### B MP #### [facility] ([id number]) [address], [address] [place] [address] Urea nitrogen [Mass/Vol] 11 mg/dL Normal 5-23 [facility] Comment on above: Performed By: #### B MP #### [facility] ([id number]) [address], [address] [place] [address] XR hip RT min 2V(w/wo pelvis )*on 11-09-2022 XR hip RT min 2V(w/wo pelvis)* [address] [address] XRay Report Signed Patient: Xiang Mahoney MR#: [id number] : 1990 Acct:[id number] Age/Sex: 31 / F ADM Date: 11/09/22 Loc: XD Room: Type: [facility] Attending Dr: Pratima SMITH Copies to: LUIS Holbrook Ordering Provider: LUIS Holbrook Date of Service: 11/09/22 XR/XR hip RT min 2V(w/wo pelvis)*: M25.559 RIGHT HIP - 2 views: CLINICAL HISTORY: Posterior right hip pain radiating to the joint for months. No injury. COMPARISON: 10/23/2017 AP and frog-lateral views were obtained. There is no evidence of fracture or dislocation. The hip joint space is maintained. No hypertrophy is seen. There is sclerosis at the SI joint. There is a partially imaged lower lumbar fusion hardware. There are no significant soft tissue abnormalities. XR/XR hip RT min 2V(w/wo pelvis)* IMPRESSION: NO ACUTE BONY INJURY. Impression dictated by: Brittany Snyder M.D.11/09/2022 3:19 PM Dictation Location: [place] [address] Transcribed By: [facility] 11/09/22 1519 Dictated By: Brittany Snyder MD 11/09/22 1515 Signed By: 11/09/22 151 Normal [facility] XR hip RT min 2V(w/wo pelvis)* [facility] [employer] Other XR hip RT min 2V(w/wo pelvis)* [facility] [employer] Other XR hip RT min 2V(w/wo pelvis)* [address] [facility] [employer] Other XR hip RT min 2V(w/wo pelvis)* ROHINI Mendoza [address] [employer] Other XR hip RT min 2V(w/wo pelvis)* XRay Report [employer] Other XR hip RT min 2V(w/wo pelvis)* Signed [employer] Other XR hip RT min 2V(w/wo pelvis)* Patient: Xiang Mahoney MR#: [id number] [employer] Other XR hip RT min 2V(w/wo pelvis)* 636 [employer] Other XR hip RT min 2V(w/wo pelvis)* : 1990 Acct:[id number] [employer] Other XR hip RT min 2V(w/wo pelvis)* Age/Sex: 31 / F ADM Date: 11/09/22 [employer] Other XR hip RT min 2V(w/wo pelvis)* Loc: XD Room: Type: [facility] [employer] Other XR hip RT min 2V(w/wo pelvis)* Attending Dr: Pratima SMITH [employer] Other XR hip RT min 2V(w/wo pelvis)* Copies to: LUIS Holbrook [employer] Other XR hip RT min 2V(w/wo pelvis)* Ordering Provider: LUIS Holbrook [employer] Other XR hip RT min 2V(w/wo pelvis)* Date of Service: 11/09/22 [employer] Other XR hip RT min 2V(w/wo pelvis)* XR/XR hip RT min 2V(w/wo pelvis)*: M25.559 [employer] Other XR hip RT min 2V(w/wo pelvis)* RIGHT HIP - 2 views: [employer] Other XR hip RT min 2V(w/wo pelvis)* CLINICAL HISTORY: Posterior right hip pain radiating to the joint for months. No injury. [employer] Other XR hip RT min 2V(w/wo pelvis)* COMPARISON: 10/23/2017 [employer] Other XR hip RT min 2V(w/wo pelvis)* AP and frog-lateral views were obtained. There is no evidence of fracture or dislocation. The hip [employer] Other XR hip RT min 2V(w/wo pelvis)* joint space is maintained. No hypertrophy is seen. There is sclerosis at the SI joint. There is a [employer] Other XR hip RT min 2V(w/wo pelvis)* partially imaged lower lumbar fusion hardware. There are no significant soft tissue abnormalities. [employer] Other XR hip RT min 2V(w/wo pelvis)* XR/XR hip RT min 2V(w/wo pelvis)* [employer] Other XR hip RT min 2V(w/wo pelvis)* IMPRESSION: [employer] Other XR hip RT min 2V(w/wo pelvis)* NO ACUTE BONY INJURY. [employer] Other XR hip RT min 2V(w/wo pelvis)* Impression dictated by: Brittany Snyder M.D.11/09/2022 3:19 PM [employer] Other XR hip RT min 2V(w/wo pelvis)* Dictation Location: [facility]- [employer] Other XR hip RT min 2V(w/wo pelvis)* Transcribed By: EDDY 11/09/22 1519 [employer] Other XR hip RT min 2V(w/wo pelvis)* Dictated By: Brittany Snyder MD 11/09/22 6794 [employer] Other XR hip RT min 2V(w/wo pelvis)* Signed By: [employer] Other XR hip RT min 2V(w/wo pelvis)* 11/09/22 2735 [employer] Other Bilirubin Test strip Ql (U)O rdered By: Cristel Allen on 09-08-2022 Bilirubin Ql (U) Negative Negative [facility] Color Auto (U)Ordered By: Annamarie Allen on 09-08-2022 Color (U) Yellow Yellow [facility] HCG ( test) IA.rapi d Ql (U)Ordered By: Cristel Allen on 09-08-2022 HCG ( test) Ql (U) Negative [facility] Ketones Auto test strip (U) [Mass/Vol]Ordered By: Cristel Allen on 09-08-2022 Ketones (U) [Mass/Vol] Trace Negative [facility] Nitrite Test strip Ql (U)Ord ered By: Cristel Allen on 09-08-2022 Nitrite Ql (U) Negative Negative [facility] Protein Auto test strip (U) [Mass/Vol]Ordered By: Cristel Allen on 09-08-2022 Protein (U) [Mass/Vol] Negative Negative [facility] Specific gravity Auto test s trip (U) [Rel density]Ordered By: Cristel Allen on 09-08-2022 Specific gravity (U) [Rel density] 1.026 1.001-1.03 0 [facility] Urine clarity by refractomet ry automatedOrdered By: Cristel Allen on 09-08-2022 Clarity Refractometry automated (U) Clear Clear [facility] Urine glucose measurement by automated test strip (mass/volume)Ordered By: Cristel Allen on 09-08-2022 Glucose Auto test strip (U) [Mass/Vol] Normal mg/dL Normal [facility] Urine hemoglobin detection b y automated test stripOrdered By: Cristel Allen on 09-08-2022 Hemoglobin Auto test strip Ql (U) Negative Negative [facility] Urine leukocyte esterase det ection by automated test stripOrdered By: Cristel Allen on 09-08-2022 Leukocyte esterase Auto test strip Ql (U) Negative Negative [facility] Urobilinogen Auto test strip (U) [Mass/Vol]Ordered By: Cristel Allen on 09-08-2022 Urobilinogen (U) [Mass/Vol] Normal mg/dL Normal [facility] pH Auto test strip (U)Ordere d By: Cristel Allen on 09-08-2022 pH (U) 6.5 [pH] 5.0-9.0 [facility] Patient Educationon 04-17-20 Patient Education Urology Hematuria, Adult Hematuria is blood in the urine. Blood may be visible in the urine, or it may be identified with a test. This condition can be caused by infections of the bladder, urethra, kidney, or prostate. Other possible causes include: ? Kidney stones. ? Cancer of the urinary tract. ? Too much calcium in the urine. ? Conditions that are passed from parent to child (inherited conditions). ? Exercise that requires a lot of energy. Infections can usually be treated with medicine, and a kidney stone usually will pass through your urine. If neither of these is the cause of your hematuria, more tests may be needed to identify the cause of your symptoms. It is very important to tell your health care provider about any blood in your urine, even if it is painless or the blood stops without treatment. Blood in the urine, when it happens and then stops and then happens again, can be a symptom of a very serious condition, including cancer. There is no pain in the initial stages of many urinary cancers. Follow these instructions at home: Medicines ? Take ceht-hjf-dfrrwng and prescription medicines only as told by your health care provider. ? If you were prescribed an antibiotic medicine, take it as told by your health care provider. Do not stop taking the antibiotic even if you start to feel better. Eating and drinking ? Drink enough fluid to keep your urine clear or pale yellow. It is recommended that you drink 3?4 quarts (2.8?3.8 L) a day. If you have been diagnosed with an infection, it is recommended that you drink cranberry juice in addition to large amounts of water. ? Avoid caffeine, tea, and carbonated beverages. These tend to irritate the bladder. ? Avoid alcohol because it may irritate the prostate (men). General instructions ? If you have been diagnosed with a kidney stone, follow your health care provider's instructions about straining your urine to catch the stone. ? Empty your bladder often. Avoid holding urine for long periods of time. ? If you are female: ? After a bowel movement, wipe from front to back and use each piece of toilet paper only once. ? Empty your bladder before and after sex. ? Pay attention to any changes in your symptoms. Tell your health care provider about any changes or any new symptoms. ? It is your responsibility to get your test results. Ask your health care provider, or the department performing the test, when your results will be ready. ? Keep all follow-up visits as told by your health care provider. This is important. Contact a health care provider if: ? You develop back pain. ? You have a fever. ? You have nausea or vomiting. ? Your symptoms do not improve after 3 days. ? Your symptoms get worse. Get help right away if: ? You develop severe vomiting and are unable take medicine without vomiting. ? You develop severe pain in your back or abdomen even though you are taking medicine. ? You pass a large amount of blood in your urine. ? You pass blood clots in your urine. ? You feel very weak or like you might faint. ? You faint. Summary ? Hematuria is blood in the urine. It has many possible causes. ? It is very important that you tell your health care provider about any blood in your urine, even if it is painless or the blood stops without treatment. ? Take qpvh-guq-jzgtgjx and prescription medicines only as told by your health care provider. ? Drink enough fluid to keep your urine clear or pale yellow. This information is not intended to replace advice given to you by your health care provider. Make sure you discuss any questions you have with your health care provider. Document Released: 05/07/2006 Document Revised: 10/01/2019 Document Reviewed: 06/09/2017 [employer] Patient Education ? 2019 [employer] [facility] Provider Letteron 04-17-2022 Provider Letter (Inserted Image. Brittni ble to display) April 17, 2022 XIANG MAHONEY S [address] [place] [address] XIANG MAHONEY S 1990 Dear Xiang, You missed your scheduled appointment on: April 17, 2022 and the purpose of this letter is to inform you of our *No Show Policy*. Our appointment slots fill rapidly and when we have a no show appointment that time is lost. We could have used that time slot to care for a patient who needed to see one of our providers. Therefore, we ask that you call 24 hours in advance to cancel your appointment. This policy is in place so that we can meet the needs of all of our patients and we do appreciate your understanding. Sincerely, [facility] [address], [place] [address] [facility] XR ANKLE LEFT (MIN 3 VIEWS)o n 03-23-2022 XR ANKLE LEFT (MIN 3 VIEWS) EXAM: XR Left Ankle Complete, 3 or More Views EXAM DATE/TIME: 03/23/2022 5:59 pm CLINICAL HISTORY: ORDERING SYSTEM PROVIDED fall, pain TECHNOLOGIST PROVIDED HISTORY: fall, pain Reason for Exam: fell Additional signs and symptoms: pt fell, pain and swelling in lt lateral ankle/foot TECHNIQUE: Frontal, lateral and oblique views of the left ankle. COMPARISON: No relevant prior studies available. FINDINGS: Bones/joints: No acute findings. No acute fracture. No dislocation. Soft tissues: Diffuse ankle soft tissue swelling, most evident laterally. IMPRESSION: Diffuse ankle soft tissue swelling, most evident laterally. No evidence of fracture or malalignment. Interpreted by: Te Padilla MD Signed by: Te Padilla MD 03/23/22 Final result Normal [facility] XR FOOT LEFT (MIN 3 VIEWS)on 03-23-2022 XR FOOT LEFT (MIN 3 VIEWS) EXAM: XR Left Foot Complete, 3 or More Views EXAM DATE/TIME: 03/23/2022 5:59 pm CLINICAL HISTORY: ORDERING SYSTEM PROVIDED fall TECHNOLOGIST PROVIDED HISTORY: fall Reason for Exam: fell Additional signs and symptoms: pt fell, pain and swelling in lt lateral ankle/foot TECHNIQUE: Frontal, lateral and oblique views of the left foot. COMPARISON: No relevant prior studies available. FINDINGS: Bones/joints: No acute findings. No acute fracture. No dislocation. Soft tissues: Lateral and to a lesser degree anterior ankle soft tissue swelling. No radiopaque foreign body. IMPRESSION: Lateral and to a lesser degree anterior ankle soft tissue swelling. No evidence of fracture or malalignment. Interpreted by: Te Padilla MD Signed by: Te Padilla MD 03/23/22 Final result Normal [facility] XR LUMBAR SPINE (2-3 VIEWS)o n 03-23-2022 XR LUMBAR SPINE (2-3 VIEWS) EXAMINATION: XRAY VIEWS OF THE LUMBAR SPINE 03/23/2022 3:00 pm COMPARISON: None. HISTORY: ORDERING SYSTEM PROVIDED HISTORY: pain TECHNOLOGIST PROVIDED HISTORY: pain Reason for Exam: fell Additional signs and symptoms: pt fell, pain in lower back, HX of lower back surgeries FINDINGS: No fractures are seen. There is mild anterior subluxation of L4 on L5 and S1 with respect to L5. There is fusion of L4 and L5 with pedicle screws and stabilizing rods. Intervertebral disc graft at L4-5. . The posterior elements are otherwiseintact. The paraspinal soft tissues are unremarkable. Status post cholecystectomy IMPRESSION: No acute bony abnormalities are noted Grade 1 spondylolisthesis of L4 on L5 and S1 with respect to L5. . Status post fusion of L4-5 Interpreted by: Oziel Bull MD Signed by: Oziel Bull MD 03/23/22 Final result Normal [facility] CBC with Auto Differentialon 03-14-2022 Absolute Eos # 0.00 [facility] Absolute Immature Granulocyte 0.00 [facility] Absolute Lymph # 0.26 Low [facility] Absolute [place] # 0.45 [facility] Basophils (Bld) [#/Vol] 0.06 10*3/uL [facility] Basophils/100 WBC (Bld) 1 % 0 - 2 % [facility] Eosinophils/100 WBC (Bld) 0 % Low 1 - 4 % [facility] Hematocrit (Bld) [Volume fraction] 38.8 % 36.3 - 47.1 % [facility] Hemoglobin (Bld) [Mass/Vol] 13.0 g/dL 11.9 - 15.1 g/dL [facility] Immature granulocytes/100 WBC (Bld) 0 % 0 [facility] Interpretation and review of laboratory results Abnormal [facility] Lymphocytes/100 WBC (Bld) 4 % Low 24 - 44 % [facility] MCH (RBC) [Entitic mass] 29.7 pg 25.2 - 33.5 pg [facility] MCHC (RBC) [Mass/Vol] 33.5 g/dL 28.4 - 34.8 g/dL [facility] MCV (RBC) [Entitic vol] 88.6 fL 82.6 - 102.9 fL [facility] Monocytes/100 WBC (Bld) 7 % 1 - 7 % [facility] Morphology Jack (Bld) [Interp] Normal [facility] NRBC Automated 0.0 0.0 per 100 WBC [facility] Platelet distribution width (Bld) [Ratio] 13.9 % 11.8 - 14.4 % [facility] Platelet mean volume (Bld) [Entitic vol] 9.9 fL 8.1 - 13.5 fL [facility] Platelets (Bld) [#/Vol] 235 10*3/uL [facility] RBC (Bld) [#/Vol] 4.38 10*6/uL 3.95 - 5.11 m/uL [facility] Segmented neutrophils/100 WBC (Bld) 88 % High 36 - 66 % [facility] Segs Absolute 5.63 [facility] WBC (Bld) [#/Vol] 6.4 10*3/uL [facility] CBC with Diffon 03-14-2022 Abs. Basophil 0.06 k/uL Normal 0.0-0.2 [facility] Comment on above: Performed By: #### L IP, HCG, TROPI, CDP, CP ####[address] [place], [place] [id number] lab Director: Fabien Dunne MD Abs.Imm.Granulocyte 0.00 k/uL Normal 0.00-0.30 [facility] Comment on above: Performed By: #### L IP, HCG, TROPI, CDP, CP ####[facility] [address] [place] [address])[phone] Director: Fabien Dunne MD Abs.Neutrophil (Seg) 5.63 k/uL Normal 1.8-7.7 [facility] Comment on above: Performed By: #### L IP, HCG, TROPI, CDP, CP ####[place], [place] [address])[phone] Director: Fabien Dunne MD Basophils/100 WBC (Bld) 1 % Normal 0-2 [facility] Comment on above: Performed By: #### L IP, HCG, TROPI, CDP, CP ####[place], [place] [address])[phone] Director: Fabien Dunne MD Eosinophils (Bld) [#/Vol] 0.00 10*3/uL Normal 0.0-0.4 [facility] Comment on above: Performed By: #### L IP, HCG, TROPI, CDP, CP ####[address] [address])[phone] Director: Fabien Dunne MD Eosinophils/100 WBC (Bld) 0 % Low 1-4 [facility] Comment on above: Performed By: #### L IP, HCG, TROPI, CDP, CP ####[place], [place] [address])[phone] Director: Fabien Dunne MD Immature granulocytes/100 WBC (Bld) 0 % Normal 0 [facility] Comment on above: Performed By: #### L IP, HCG, TROPI, CDP, CP ####[address] [address])[phone] Director: Fabien Dunne MD Lymphocytes (Bld) [#/Vol] 0.26 10*3/uL Low 1.0-4.8 [facility] Comment on above: Performed By: #### L IP, HCG, TROPI, CDP, CP ####[facility] [address] [place], [place] [id number])[phone] Director: Fabien Dunne MD Lymphocytes/100 WBC (Bld) 4 % Low 24-44 [facility] Comment on above: Performed By: #### L IP, HCG, TROPI, CDP, CP ####[facility] [address] [place], [place] [address])[phone] Director: Fabien Dunne MD Monocytes (Bld) [#/Vol] 0.45 10*3/uL Normal 0.1-0.8 [facility] Comment on above: Performed By: #### L IP, HCG, TROPI, CDP, CP ####[facility] [address] [place] [address])[phone] Director: Fabien Dunne MD Monocytes/100 WBC (Bld) 7 % Normal 1-7 [facility] Comment on above: Performed By: #### L IP, HCG, TROPI, CDP, CP ####[facility] [address] [place] [address])[phone] Director: Fabien Dunne MD Morphology Jack (Bld) [Interp] Normal Normal [facility] Comment on above: Performed By: #### L IP, HCG, TROPI, CDP, CP ####[facility] [address] [place] [address] [phone] Director: Fabien Dunne MD Neutrophil (Seg) 88 % High 36-66 [place] Comment on above: Performed By: #### L IP, HCG, TROPI, CDP, CP ####[facility] [address] [place], [place] [id number])[phone] Director: Fabien Dunne MD Erythrocyte distribution width (RBC) [Ratio] 13.9 % Normal 11.8-14.4 [facility] Comment on above: Performed By: #### L IP, HCG, TROPI, CDP, CP ####[facility] [address] [place] [address] Lab Director: Fabien Dunne MD Hematocrit (Bld) [Volume fraction] 38.8 % Normal 36.3-47.1 [facility] Comment on above: Performed By: #### L IP, HCG, TROPI, CDP, CP ####[address] [phone])[phone] Director: Fabien Dunne MD Hemoglobin (Bld) [Mass/Vol] 13.0 g/dL Normal 11.9-15.1 [facility] Comment on above: Performed By: #### L IP, HCG, TROPI, CDP, CP ####[address] [id number])[phone] Director: Fabien Dunne MD MCH (RBC) [Entitic mass] 29.7 pg Normal 25.2-33.5 [facility] Comment on above: Performed By: #### L IP, HCG, TROPI, CDP, CP ####[address] [id number])[phone] Director: Fabien Dunne MD MCHC (RBC) [Mass/Vol] 33.5 g/dL Normal 28.4-34.8 [facility] Comment on above: Performed By: #### L IP, HCG, TROPI, CDP, CP ####[facility] [address] [place] [address] [phone] Director: Fabien Dunne MD MCV (RBC) [Entitic vol] 88.6 fL Normal 82.6-102.9 [facility] Comment on above: Performed By: #### L IP, HCG, TROPI, CDP, CP ####[facility] [address] [place] [address] Lab Director: Fabien Dunne MD NRBC Automated 0.0 per 100 WBC Normal 0.0 [facility] Comment on above: Performed By: #### L IP, HCG, TROPI, CDP, CP ####[facility] [address] [place], [place] [id number])[phone] Director: Fabien Dunne MD Platelet mean volume (Bld) [Entitic vol] 9.9 fL Normal 8.1-13.5 [facility] Comment on above: Performed By: #### L IP, HCG, TROPI, CDP, CP ####[facility] [address] [place], [place] [id number])[phone] Director: Fabien Dunne MD Platelets (Bld) [#/Vol] 235 10*3/uL Normal 138-453 [facility] Comment on above: Performed By: #### L IP, HCG, TROPI, CDP, CP ####[facility] [address] [place] [address] [id number])[phone] Director: Fabien Dunne MD RBC (Bld) [#/Vol] 4.38 10*6/uL Normal 3.95-5.11 [facility] Comment on above: Performed By: #### L IP, HCG, TROPI, CDP, CP ####[facility] [address] [place], [place] [phone])[phone] Director: Fabien Dunne MD WBC (Bld) [#/Vol] 6.4 10*3/uL Normal 3.5-11.3 [facility] Comment on above: Performed By: #### L IP, HCG, TROPI, CDP, CP ####[facility] [address] [place], [place] [phone])[phone] Director: [facility] Dunne MD [facility] Albumin [Mass/Vol] 4.4 g/dL 3.5 - 5.2 g/dL [facility] Albumin/Globulin [Mass ratio] 1.5 {ratio} 1.0 - 2.5 [facility] ALP (Bld) [Catalytic activity/Vol] 72 U/L 35 - 104 U/L [facility] ALT [Catalytic activity/Vol] 21 U/L 5 - 33 U/L [facility] Anion gap [Moles/Vol] 13 mmol/L 9 - 17 mmol/L [facility] AST [Catalytic activity/Vol] 17 U/L NINF - 32 U/L [facility] Bilirubin [Mass/Vol] 0.3 mg/dL 0.3 - 1 .2 mg/dL [facility] Calcium [Mass/Vol] 9.6 mg/dL 8.6 - 10. 4 mg/dL [facility] Chloride [Moles/Vol] 102 mmol/L 98 - 10 7 mmol/L [facility] CO2 [Moles/Vol] 22 mmol/L 20 - 31 mmol/L [facility] Creatinine [Mass/Vol] 0.72 mg/dL 0.50 - 0.90 mg/dL [facility] GFR/1.73 sq M.predicted MDRD (S/P/Bld) [Vol rate/Area] - PINF [facility] Comment on above: Effective Feb 20, 2022 These results are not intended for use in patients <18 years of age. eGFR results are calculated without a race factor using the 2020 CKD-EPI equation. Careful clinical correlation is recommended, particularly when comparing to results calculated using previous equations. The CKD-EPI equation is less accurate in patients with extremes of muscle mass, extra-renal metabolism of creatine, excessive creatine ingestion, or following therapy that affects renal tubular secretion. Glucose [Mass/Vol] 109 mg/dL High 70 - 99 mg/dL [facility] Interpretation and review of laboratory results Abnormal [facility] Potassium [Moles/Vol] 4.0 mmol/L 3.7 - 5.3 mmol/L [facility] Protein [Mass/Vol] 7.3 g/dL 6.4 - 8.3 g/dL [facility] Sodium [Moles/Vol] 137 mmol/L 135 - 144 mmol/L [facility] Urea nitrogen (BldV) [Mass/Vol] 8 mg/dL 6 - 20 mg/dL [facility] CT CERVICAL SPINE WO CONTRAS Ton 03-14-2022 CT CERVICAL SPINE WO CONTRAST EXAMINATION: CT OF THE HEAD WITHOUT CONTRAST; CT OF THE CERVICAL SPINE WITHOUT CONTRAST 03/14/2022 10:04 am TECHNIQUE: CT of the head was performed without the administration of intravenous contrast. Automated exposure control, iterative reconstruction, and/or weight based adjustment of the mA/kV was utilized to reduce the radiation dose to as low as reasonably achievable.; CT of the cervical spine was performed without the administration of intravenous contrast. Multiplanar reformatted images are provided for review. Automated exposure control, iterative reconstruction, and/or weight based adjustment of the mA/kV was utilized to reduce the radiation dose to as low as reasonably achievable. COMPARISON: No priors HISTORY: ORDERING SYSTEM PROVIDED HISTORY: thunderclap headache and syncope TECHNOLOGIST PROVIDED HISTORY: thunderclap headache and syncope Decision Support Exception - unselect if not a suspected or confirmed emergency medical condition->Emergency Medical Condition (MA) Is the patient ?->No FINDINGS: HEAD: BRAIN/VENTRICLES: There is no acute intracranial hemorrhage, mass effect or midline shift. No abnormal extra-axial fluid collection. The goldman-white differentiation is maintained. There is no evidence of hydrocephalus. ORBITS: The visualized portion of the orbits demonstrate no acute abnormality. SINUSES: The visualized paranasal sinuses and mastoid air cells demonstrate no acute abnormality. SOFT TISSUES/SKULL: No acute abnormality of the visualized skull or soft tissues. CERVICAL SPINE: BONES/ALIGNMENT: There is no evidence of an acute cervical spine fracture. No traumatic malalignment. DEGENERATIVE CHANGES: No significant degenerative changes. SOFT TISSUES: There is no prevertebral soft tissue swelling. IMPRESSION: CT HEAD: No CT evidence for acute intracranial abnormality.. CT CERVICAL SPINE: No acute fracture or subluxation of the cervical spine. Interpreted by: Saroj Lopez MD Signed by: Saroj Lopez MD 03/14/22 Final result Normal [facility] CT HEAD WO CONTRASTon 2021 CT HEAD WO CONTRAST EXAMINATION: CT OF THE HEAD WITHOUT CONTRAST; CT OF THE CERVICAL SPINE WITHOUT CONTRAST 03/14/2022 10:04 am TECHNIQUE: CT of the head was performed without the administration of intravenous contrast. Automated exposure control, iterative reconstruction, and/or weight based adjustment of the mA/kV was utilized to reduce the radiation dose to as low as reasonably achievable.; CT of the cervical spine was performed without the administration of intravenous contrast. Multiplanar reformatted images are provided for review. Automated exposure control, iterative reconstruction, and/or weight based adjustment of the mA/kV was utilized to reduce the radiation dose to as low as reasonably achievable. COMPARISON: No priors HISTORY: ORDERING SYSTEM PROVIDED HISTORY: thunderclap headache and syncope TECHNOLOGIST PROVIDED HISTORY: thunderclap headache and syncope Decision Support Exception - unselect if not a suspected or confirmed emergency medical condition->Emergency Medical Condition (MA) Is the patient ?->No FINDINGS: HEAD: BRAIN/VENTRICLES: There is no acute intracranial hemorrhage, mass effect or midline shift. No abnormal extra-axial fluid collection. The goldman-white differentiation is maintained. There is no evidence of hydrocephalus. ORBITS: The visualized portion of the orbits demonstrate no acute abnormality. SINUSES: The visualized paranasal sinuses and mastoid air cells demonstrate no acute abnormality. SOFT TISSUES/SKULL: No acute abnormality of the visualized skull or soft tissues. CERVICAL SPINE: BONES/ALIGNMENT: There is no evidence of an acute cervical spine fracture. No traumatic malalignment. DEGENERATIVE CHANGES: No significant degenerative changes. SOFT TISSUES: There is no prevertebral soft tissue swelling. IMPRESSION: CT HEAD: No CT evidence for acute intracranial abnormality.. CT CERVICAL SPINE: No acute fracture or subluxation of the cervical spine. Interpreted by: Saroj Lopez MD Signed by: Saroj Lopez MD 03/14/22 Final result Normal [facility] Comp Metabolic Profon 2021 Albumin [Mass/Vol] 4.4 g/dL Normal 3.5-5.2 [facility] Comment on above: Performed By: #### L IP, HCG, TROPI, CDP, CP ####[facility] [address] [place] [address] Lab Director: Fabien Dunne MD Albumin/Glob Ratio 1.5 Normal 1.0-2.5 [facility] Comment on above: Performed By: #### L IP, HCG, TROPI, CDP, CP ####[facility] [address] [place], [place] [id number] Lab Director: Fabien Dunne MD Alkaline Phos 72 U/L Normal 35-104 [facility] Comment on above: Performed By: #### L IP, HCG, TROPI, CDP, CP ####[facility] [address] [place] [address] Lab Director: Fabien Dunne MD ALT [Catalytic activity/Vol] 21 U/L Normal 5-33 [facility] Comment on above: Performed By: #### L IP, HCG, TROPI, CDP, CP ####[facility] [address] [place], [place] [phone] Director: Fabien Dunne MD Anion gap [Moles/Vol] 13 mmol/L Normal 9-17 [facility] Comment on above: Performed By: #### L IP, HCG, TROPI, CDP, CP ####[address] [address] Lab Director: Fabien Dunne MD AST [Catalytic activity/Vol] 17 U/L Normal <32 [facility] Comment on above: Performed By: #### L IP, HCG, TROPI, CDP, CP ####[address] [address] Lab Director: Fabien Dunne MD Bilirubin [Mass/Vol] 0.3 mg/dL Normal 0.3-1.2 [facility] Comment on above: Performed By: #### L IP, HCG, TROPI, CDP, CP ####[facility] [address] [place], [place] [phone] Director: Fabien Dunne MD Calcium [Mass/Vol] 9.6 mg/dL Normal 8.6-10.4 [facility] Comment on above: Performed By: #### L IP, HCG, TROPI, CDP, CP ####[facility] [address] [place], [place] [id number])[phone] Director: Fabien Dunne MD Chloride [Moles/Vol] 102 mmol/L Normal 98-107 [facility] Comment on above: Performed By: #### L IP, HCG, TROPI, CDP, CP ####[facility] [address] [place] [address] Lab Director: Fabien Dunne MD CO2 [Moles/Vol] 22 mmol/L Normal 20-31 [facility] Comment on above: Performed By: #### L IP, HCG, TROPI, CDP, CP ####[facility] [address] [place] [address])[phone] Director: Fabien Dunne MD Creatinine [Mass/Vol] 0.72 mg/dL Normal 0.50-0.90 [facility] Comment on above: Performed By: #### L IP, HCG, TROPI, CDP, CP ####[address] [address])[phone] Director: Fabien Dunne MD GFR/1.73 sq M.predicted among non-blacks MDRD (S/P/Bld) [Vol rate/Area] mL/min/{1.73_m2} Normal >60 [facility] Comment on above: Result Comment: Effective Feb 20, 2022 These results are not intended for use in patients <18 years of age. eGFR results are calculated without a race factor using the 2020 CKD-EPI equation. Careful clinical correlation is recommended, particularly when comparing to results calculated using previous equations. The CKD-EPI equation is less accurate in patients with extremes of muscle mass, extra-renal metabolism of creatine, excessive creatine ingestion, or following therapy that affects renal tubular secretion. Performed By: #### L IP, HCG, TROPI, CDP, CP ####[facility] [address] [place] [address])[phone] Director: Fabien Dunne MD Glucose [Mass/Vol] 109 mg/dL High 70-99 [facility] Comment on above: Performed By: #### L IP, HCG, TROPI, CDP, CP ####[facility] [id number] [place] [id number] Lab Director: Fabien Dunne MD Potassium [Moles/Vol] 4.0 mmol/L Normal 3.7-5.3 [facility] Comment on above: Performed By: #### L IP, HCG, TROPI, CDP, CP ####[facility] [address] [place] [address] Lab Director: Fabien Dunne MD Protein [Mass/Vol] 7.3 g/dL Normal 6.4-8.3 [facility] Comment on above: Performed By: #### L IP, HCG, TROPI, CDP, CP ####[facility] [address] [place] [address] Lab Director: Fabien Dunne MD Sodium [Moles/Vol] 137 mmol/L Normal 135-144 [facility] Comment on above: Performed By: #### L IP, HCG, TROPI, CDP, CP ####[facility] [address] [place] [address] Lab Director: Fabien Dunne MD Urea nitrogen [Mass/Vol] 8 mg/dL Normal 6-20 [facility] Comment on above: Performed By: #### L IP, HCG, TROPI, CDP, CP ####[facility] [address] [place] [address] Lab Director: Fabien Dunne MD HCG Qualitative, Serumon hCG Qual Negative NEGATIVE [facility] Comment on above: Specimens with hCG l evels near the threshold of the test (25 mIU/mL) may give a negative or indeterminate result. In such cases, another test should be performed with a new specimen in 48-72 hours. If early is suspected clinically in this setting, correlation with quantitative serum b-hCG level is suggested. [employer] has confirmed the use of plasma for this test. This has not been cleared or approved by the U.S. Food and Drug Administration. The FDA has determined that such clearance is not necessary. [facility] HCG Screen, Bloodon 03-14-20 HCG Screen, Blood Negative Normal NEG [facility] Comment on above: Result Comment: Spec imens with hCG levels near the threshold of the test (25 mIU/mL) may give a negative or indeterminate result. In such cases, another test should be performed with a new specimen in 48-72 hours. If early is suspected clinically in this setting, correlation with quantitative serum b-hCG level is suggested. [employer] has confirmed the use of plasma for this test. This has not been cleared or approved by the U.S. Food and Drug Administration. The FDA has determined that such clearance is not necessary. Performed By: #### L IP, HCG, TROPI, CDP, CP #### [employer] [address] [place], [place] [id number] Beta Tester: Fabien Dunne MD Lipaseon 03-14-2022 Lipase [Catalytic activity/Vol] 52 U/L Normal 13-60 [facility] Comment on above: Performed By: #### L IP, HCG, TROPI, CDP, CP ####[employer] [address] [place], [place] [id number] Lab Director: Fabien Dunne MD Lipase [Catalytic activity/Vol] 52 U/L 13 - 60 U/L [facility] Microscopic Urinalysison Casts UA 2 TO 5 HYALINE Refer ence range defined for non-centrifuged specimen. [facility] Epithelial Cells UA 5 TO 10 [facility] RBC, UA None [facility] Comment on above: Reference range defi barbara for non-centrifuged specimen. WBC, UA 0 TO 2 [facility] No Panel Informationon 03-14 CT HEAD: No CT evidence for acute intracranial abnormality.. CT CERVICAL SPINE: No acute fracture or subluxation of the cervical spine. [facility] EXAMINATION: CT OF THE HEAD WITHOUT CONTRAST; CT OF THE CERVICAL SPINE WITHOUT CONTRAST 03/14/2022 10:04 am TECHNIQUE: CT of the head was performed without the administration of intravenous contrast. Automated exposure control, iterative reconstruction, and/or weight based adjustment of the mA/kV was utilized to reduce the radiation dose to as low as reasonably achievable.; CT of the cervical spine was performed without the administration of intravenous contrast. Multiplanar reformatted images are provided for review. Automated exposure control, iterative reconstruction, and/or weight based adjustment of the mA/kV was utilized to reduce the radiation dose to as low as reasonably achievable. COMPARISON: No priors HISTORY: ORDERING SYSTEM PROVIDED HISTORY: thunderclap headache and syncope TECHNOLOGIST PROVIDED HISTORY: thunderclap headache and syncope Decision Support Exception - unselect if not a suspected or confirmed emergency medical condition->Emergency Medical Condition (MA) Is the patient ?->No FINDINGS: HEAD: BRAIN/VENTRICLES: There is no acute intracranial hemorrhage, mass effect or midline shift. No abnormal extra-axial fluid collection. The goldman-white differentiation is maintained. There is no evidence of hydrocephalus. ORBITS: The visualized portion of the orbits demonstrate no acute abnormality. SINUSES: The visualized paranasal sinuses and mastoid air cells demonstrate no acute abnormality. SOFT TISSUES/SKULL: No acute abnormality of the visualized skull or soft tissues. CERVICAL SPINE: BONES/ALIGNMENT: There is no evidence of an acute cervical spine fracture. No traumatic malalignment. DEGENERATIVE CHANGES: No significant degenerative changes. SOFT TISSUES: There is no prevertebral soft tissue swelling. [facility] Saroj Lopez MD - 03/14/2022 EXAMINATION: CT OF THE HEAD WITHOUT CONTRAST; CT OF THE CERVICAL SPINE WITHOUT CONTRAST 03/14/2022 10:04 am TECHNIQUE: CT of the head was performed without the administration of intravenous contrast. Automated exposure control, iterative reconstruction, and/or weight based adjustment of the mA/kV was utilized to reduce the radiation dose to as low as reasonably achievable.; CT of the cervical spine was performed without the administration of intravenous contrast. Multiplanar reformatted images are provided for review. Automated exposure control, iterative reconstruction, and/or weight based adjustment of the mA/kV was utilized to reduce the radiation dose to as low as reasonably achievable. COMPARISON: No priors HISTORY: ORDERING SYSTEM PROVIDED HISTORY: thunderclap headache and syncope TECHNOLOGIST PROVIDED HISTORY: thunderclap headache and syncope Decision Support Exception - unselect if not a suspected or confirmed emergency medical condition->Emergency Medical Condition (MA) Is the patient ?->No FINDINGS: HEAD: BRAIN/VENTRICLES: There is no acute intracranial hemorrhage, mass effect or midline shift. No abnormal extra-axial fluid collection. The goldman-white differentiation is maintained. There is no evidence of hydrocephalus. ORBITS: The visualized portion of the orbits demonstrate no acute abnormality. SINUSES: The visualized paranasal sinuses and mastoid air cells demonstrate no acute abnormality. SOFT TISSUES/SKULL: No acute abnormality of the visualized skull or soft tissues. CERVICAL SPINE: BONES/ALIGNMENT: There is no evidence of an acute cervical spine fracture. No traumatic malalignment. DEGENERATIVE CHANGES: No significant degenerative changes. SOFT TISSUES: There is no prevertebral soft tissue swelling. IMPRESSION: CT HEAD: No CT evidence for acute intracranial abnormality.. CT CERVICAL SPINE: No acute fracture or subluxation of the cervical spine. [facility] Work Phone: [facility] [employer] Radiology Study observation (narrative) [facility] [employer] Work Phone: No Panel InformationOrdered By: Saroj Lopez on 03-14-2022 [facility] [employer] Work Phone: Troponinon 03-14-2022 Troponin, High Sens <6 Normal 0-14 [facility] Comment on above: Result Comment: High Sensitivity Troponin values cannot be compared with other Troponin methodologies. Patients with high levels of Biotin oral intake (i.e >5mg/day) may have falsely decreased Troponin levels. Samples collected within 8 hours of biotin intake may require additional information for diagnosis. Performed By: #### L IP, HCG, TROPI, CDP, CP #### [employer] [address] [place] [address] Beta Tester: Fabien Dunne MD Troponin, High Sensitivity ng/L 0 - 14 ng/L [facility] Comment on above: High Sensitivity Troponin values cannot be compared with other Troponin methodologies. Patients with high levels of Biotin oral intake (i.e >5mg/day) may have falsely decreased Troponin levels. Samples collected within 8 hours of biotin intake may require additional information for diagnosis. [facility] Local Eye Site Urinalysison 03-14-2022 Bilirubin Urine Negative NEGATIVE [facility] [employer] Color, UA Yellow Yellow [facility] Glucose, Ur Negative NEGATIVE [facility] Interpretation and review of laboratory results Abnormal [facility] Ketones Ql (U) Negative NEGATIVE [facility] Leukocyte esterase Test strip Ql (U) MODERATE Abnormal NEGATIVE [facility] Nitrite, Urine Negative NEGATIVE [facility] pH, UA High 5.0 - 8.0 [facility] Protein, UA Negative NEGATIVE [facility] Specific [place], UA 1.016 1.005 - 1.030 [facility] Turbidity UA Clear Clear [facility] Urine Hgb Negative NEGATIVE [facility] Urobilinogen, Urine Normal Normal [facility] Urinalysis, Routineon 2021 Bilirubin, SemiQt,Ur Negative Normal NEG [facility] Comment on above: Performed By: #### U MICAO, UA #### [employer] [address] [place] [id number] Beta Tester: Fabien Dunne MD Blood, Urine Negative Normal NEG [facility] Comment on above: Performed By: #### U MICAO, UA #### [employer] [address] [place] [address] [id number] Beta Tester: Fabien Dunne MD Clarity (U) Clear Normal CLEAR [facility] Comment on above: Performed By: #### U MICAO, UA #### [employer] [address] [place] [id number] Beta Tester: Fabien Dunne MD Color (U) Yellow Normal YEL [facility] Comment on above: Performed By: #### U MICAO, UA #### [employer] [address] [place] [address] [id number] Beta Tester: Fabien Dunne MD Glucose Ql (U) Negative Normal NEG [facility] Comment on above: Performed By: #### U MICAO, UA #### [employer] [address] [place] [address] [id number] Beta Tester: Fabien Dunne MD Ketones Ql (U) Negative Normal NEG [facility] Comment on above: Performed By: #### U MICAO, UA #### [facility] [address] [address] Beta Tester: Fabien Dunne MD Leukocyte esterase Test strip Ql (U) MODERATE Abnormal NEG [facility] Comment on above: Performed By: #### U MICAO, UA #### [facility] [address] [place] [id number] Beta Tester: Fabien Dunne MD Nitrite,Ur Negative Normal NEG [facility] Comment on above: Performed By: #### U MICAO, UA #### [facility] [employer] [address] [place] [id number] Beta Tester: Fabien Dunne MD PH,Ur >9.0 High 5.0-8.0 [facility] Comment on above: Performed By: #### U MICAO, UA #### [address] [address] Beta Tester: Fabien Dunne MD Protein Ql (U) Negative Normal NEG [facility] Comment on above: Performed By: #### U MICAO, UA #### [address] [id number] Beta Tester: Fabien Dunne MD Spec. Charenton,Ur 1.016 Normal 1.005-1.03 0 [facility] Comment on above: Performed By: #### U MICAO, UA #### [address] [address] Beta Tester: Fabien Dunne MD Urobilinogen,Ur Normal Normal NORM [facility] Comment on above: Performed By: #### U MICAO, UA #### [address] [address] Beta Tester: Fabien Dunne MD Urinalysis,Microon 2 Casts 2 TO 5 HYALINE Normal 0-8 [facility] Comment on above: Result Comment: Refe rence range defined for non-centrifuged specimen. Performed By: #### U MICAO, UA #### [address] [address] Beta Tester: Fabien Dunne MD Epithelial cells LM Ql (Urine sed) 5 TO 10 Normal 0-5 [facility] Comment on above: Performed By: #### U MICAO, UA #### [address] [address] Beta Tester: Fabien Dunne MD Urine RBC's None Normal 0-4 [facility] Comment on above: Result Comment: Refe rence range defined for non-centrifuged specimen. Performed By: #### U MICAO, UA #### [facility] [employer] [address] [place] [id number] Beta Tester: Fabien Dunne MD Urine WBC's 0 TO 2 Normal 0-5 [facility] Comment on above: Performed By: #### U MICAO, UA #### [address] [address] Beta Tester: Fabien Dunne MD XR CHEST (2 VW)on 03-14-2022 XR CHEST (2 VW) EXAMINATION: TWO XRAY VIEWS OF THE CHEST 03/14/2022 10:26 am COMPARISON: None. HISTORY: ORDERING SYSTEM PROVIDED HISTORY: shortness of breath TECHNOLOGIST PROVIDED HISTORY: shortness of breath 31-year-old female with shortness of breath FINDINGS: security monitor leads overlie the chest. Trachea midline. No pneumothorax. No free air. No acute focal airspace consolidation or pleural effusions. Cardiac and mediastinal contours within normal limits. No acute osseous abnormality identified. Prior cholecystectomy. IMPRESSION: No acute focal airspace consolidation. Interpreted by: Jose Daniel Yost MD Signed by: Jose Daniel Yost MD 03/14/22 Final result Normal [facility] No acute focal airsp terra consolidation. [facility] EXAMINATION: TWO XRAY VIEWS OF THE CHEST 03/14/2022 10:26 am COMPARISON: None. HISTORY: ORDERING SYSTEM PROVIDED HISTORY: shortness of breath TECHNOLOGIST PROVIDED HISTORY: shortness of breath 31-year-old female with shortness of breath FINDINGS: security monitor leads overlie the chest. Trachea midline. No pneumothorax. No free air. No acute focal airspace consolidation or pleural effusions. Cardiac and mediastinal contours within normal limits. No acute osseous abnormality identified. Prior cholecystectomy. [facility] Jose Daniel Yost MD - 03/14/2022 EXAMINATION: TWO XRAY VIEWS OF THE CHEST 03/14/2022 10:26 am COMPARISON: None. HISTORY: ORDERING SYSTEM PROVIDED HISTORY: shortness of breath TECHNOLOGIST PROVIDED HISTORY: shortness of breath 31-year-old female with shortness of breath FINDINGS: security monitor leads overlie the chest. Trachea midline. No pneumothorax. No free air. No acute focal airspace consolidation or pleural effusions. Cardiac and mediastinal contours within normal limits. No acute osseous abnormality identified. Prior cholecystectomy. IMPRESSION: No acute focal airspace consolidation. [employer] Phone: Radiology Study observation (narrative) [employer] Phone: XR CHEST (2 VW)Ordered By: Rocío Yost on 03-14-2022 [employer] Phone: XR ANKLE LEFT (MIN 3 VIEWS)o n 03-05-2022 XR ANKLE LEFT (MIN 3 VIEWS) EXAMINATION: THREE XRAY VIEWS OF THE LEFT ANKLE; THREE XRAY VIEWS OF THE LEFT FOOT; FOUR XRAY VIEWS OF THE LEFT KNEE 03/05/2022 3:21 pm COMPARISON: None. HISTORY: ORDERING SYSTEM PROVIDED HISTORY: Lat maleolar tenderness, swelling TECHNOLOGIST PROVIDED HISTORY: Lat maleolar tenderness, swelling 31-year-old female with lateral malleolus, swelling, and tenderness FINDINGS: Left knee: Small joint effusion. Remote well corticated ossific structure along the medial patellar facet which could be related to a remote avulsion fracture. Osseous alignment is normal. Joint spaces are well maintained. No acute fracture or gross dislocation is seen. No suspicious osteolytic or osteoblastic lesions are identified. Left ankle: Ankle mortise is intact. Osseous alignment is normal. Joint spaces are well maintained. No acute fracture or gross dislocation is seen. Moderate soft tissue swelling of the anterior and lateral ankle. No tibiotalar joint effusion is identified. Boehler's angle is maintained. Scattered soft tissue calcifications. Left foot: Moderate soft tissue swelling of the anterior and lateral ankle. Osseous alignment is normal. Joint spaces are well maintained. No marginal erosions are identified. No acute fracture or gross dislocation is seen. The medial and middle cuneiforms demonstrate proper alignment with the base of the 1st and 2nd metatarsals respectively. Os trigonum variant. No tibiotalar joint effusion is seen. Boehler's angle is maintained. IMPRESSION: Left knee: 1. Small joint effusion. 2. No acute fracture or dislocation. 3. Remote well corticated ossific structure along the medial patellar facet which could be related to sequela of remote trauma. Left ankle: 1. Moderate soft tissue swelling of the anterior and lateral ankle. 2. No acute fracture or dislocation. Left foot: 1. Moderate soft tissue swelling of the anterior and lateral ankle. 2. No acute fracture or dislocation. Interpreted by: Jose Daniel Yost MD Signed by: Jose Daniel Yost MD 03/05/22 Final result Normal [facility] XR FOOT LEFT (MIN 3 VIEWS)on 03-05-2022 XR FOOT LEFT (MIN 3 VIEWS) EXAMINATION: THREE XRAY VIEWS OF THE LEFT ANKLE; THREE XRAY VIEWS OF THE LEFT FOOT; FOUR XRAY VIEWS OF THE LEFT KNEE 03/05/2022 3:21 pm COMPARISON: None. HISTORY: ORDERING SYSTEM PROVIDED HISTORY: Lat maleolar tenderness, swelling TECHNOLOGIST PROVIDED HISTORY: Lat maleolar tenderness, swelling 31-year-old female with lateral malleolus, swelling, and tenderness FINDINGS: Left knee: Small joint effusion. Remote well corticated ossific structure along the medial patellar facet which could be related to a remote avulsion fracture. Osseous alignment is normal. Joint spaces are well maintained. No acute fracture or gross dislocation is seen. No suspicious osteolytic or osteoblastic lesions are identified. Left ankle: Ankle mortise is intact. Osseous alignment is normal. Joint spaces are well maintained. No acute fracture or gross dislocation is seen. Moderate soft tissue swelling of the anterior and lateral ankle. No tibiotalar joint effusion is identified. Boehler's angle is maintained. Scattered soft tissue calcifications. Left foot: Moderate soft tissue swelling of the anterior and lateral ankle. Osseous alignment is normal. Joint spaces are well maintained. No marginal erosions are identified. No acute fracture or gross dislocation is seen. The medial and middle cuneiforms demonstrate proper alignment with the base of the 1st and 2nd metatarsals respectively. Os trigonum variant. No tibiotalar joint effusion is seen. Boehler's angle is maintained. IMPRESSION: Left knee: 1. Small joint effusion. 2. No acute fracture or dislocation. 3. Remote well corticated ossific structure along the medial patellar facet which could be related to sequela of remote trauma. Left ankle: 1. Moderate soft tissue swelling of the anterior and lateral ankle. 2. No acute fracture or dislocation. Left foot: 1. Moderate soft tissue swelling of the anterior and lateral ankle. 2. No acute fracture or dislocation. Interpreted by: Jose Daniel Yost MD Signed by: Jose Daniel Yost MD 03/05/22 Final result Normal [facility] XR KNEE LEFT (MIN 4 VIEWS)on 03-05-2022 XR KNEE LEFT (MIN 4 VIEWS) EXAMINATION: THREE XRAY VIEWS OF THE LEFT ANKLE; THREE XRAY VIEWS OF THE LEFT FOOT; FOUR XRAY VIEWS OF THE LEFT KNEE 03/05/2022 3:21 pm COMPARISON: None. HISTORY: ORDERING SYSTEM PROVIDED HISTORY: Lat maleolar tenderness, swelling TECHNOLOGIST PROVIDED HISTORY: Lat maleolar tenderness, swelling 31-year-old female with lateral malleolus, swelling, and tenderness FINDINGS: Left knee: Small joint effusion. Remote well corticated ossific structure along the medial patellar facet which could be related to a remote avulsion fracture. Osseous alignment is normal. Joint spaces are well maintained. No acute fracture or gross dislocation is seen. No suspicious osteolytic or osteoblastic lesions are identified. Left ankle: Ankle mortise is intact. Osseous alignment is normal. Joint spaces are well maintained. No acute fracture or gross dislocation is seen. Moderate soft tissue swelling of the anterior and lateral ankle. No tibiotalar joint effusion is identified. Boehler's angle is maintained. Scattered soft tissue calcifications. Left foot: Moderate soft tissue swelling of the anterior and lateral ankle. Osseous alignment is normal. Joint spaces are well maintained. No marginal erosions are identified. No acute fracture or gross dislocation is seen. The medial and middle cuneiforms demonstrate proper alignment with the base of the 1st and 2nd metatarsals respectively. Os trigonum variant. No tibiotalar joint effusion is seen. Boehler's angle is maintained. IMPRESSION: Left knee: 1. Small joint effusion. 2. No acute fracture or dislocation. 3. Remote well corticated ossific structure along the medial patellar facet which could be related to sequela of remote trauma. Left ankle: 1. Moderate soft tissue swelling of the anterior and lateral ankle. 2. No acute fracture or dislocation. Left foot: 1. Moderate soft tissue swelling of the anterior and lateral ankle. 2. No acute fracture or dislocation. Interpreted by: Jose Daniel Yost MD Signed by: Jose Daniel Yost MD 03/05/22 Final result Normal [facility] [employer] 1 [employer] [id number]:127 Normal [facility] Lab Reportson 02-16-2022 Lab Reports [id number]:127 Normal [facility] CBC AUTO DIFFon 01-14-2022 BASO # 0.1 103/ul Normal 0.0-0.1 [facility] Comment on above: Performed By: #### C BC #### [facility] [address] [place] [address] Dr. Shawn Cosme Basophils/100 WBC (Bld) 0.5 % Normal 0.2-2.0 [facility] Comment on above: Performed By: #### C BC #### [facility] [address] [place] [address] Dr. Shawn Cosme EO # 0.4 103/ul Normal 0.0-0.7 [facility] Comment on above: Performed By: #### C BC #### [facility] [address] [place] [address] Dr. Shawn Cosme Eosinophils/100 WBC (Bld) 4.0 % Normal 0.9-7.0 [facility] Comment on above: Performed By: #### C BC #### [facility] [address] [place] [address] Dr. Shawn Cosme Erythrocyte distribution width (RBC) [Ratio] 14.4 % Normal 11.0-15.0 [facility] Comment on above: Performed By: #### C BC #### [facility] [address] [place] [address] Dr. Shawn Cosme Hematocrit (Bld) [Volume fraction] 40.2 % Normal 36.0-48.0 [facility] Comment on above: Performed By: #### C BC #### [facility] [address] [place] [address] Dr. Shawn Cosme Hemoglobin (Bld) [Mass/Vol] 13.2 g/dL Normal 12.0-16.0 [facility] Comment on above: Performed By: #### C BC #### [facility] [address] [place] [address] Dr. Shawn Cosme IG # 0.04 10e3/ul Critically high 0.00-0.03 [facility] Comment on above: Performed By: #### C BC #### [facility] [address] [place] [address] Dr. Shawn Cosme IG % 0.4 % Normal 0.0-0.5 [facility] Comment on above: Performed By: #### C BC #### [facility] [address] [place] [address] Dr. Shawn Cosme LYMPH # 2.0 103/ul Normal 1.2-3.8 [facility] Comment on above: Performed By: #### C BC #### [facility] [address] [place] [address] Dr. Shawn Cosme Lymphocytes/100 WBC (Bld) 17.9 % Critically low 20.5-60.0 [facility] Comment on above: Performed By: #### C BC #### [facility] [address] [place] [address] Dr. Shawn Cosme MANUAL DIFF REQ NO Normal [facility] Comment on above: Performed By: #### C BC #### [facility] [address] [address] [address] Shawn Cosme MCH (RBC) [Entitic mass] 29.1 pg Normal 26.7-34.0 [facility] Comment on above: Performed By: #### C BC #### [facility] [address] [place] [address] Dr. Shawn Cosme MCHC (RBC) [Mass/Vol] 32.8 g/dL Normal 29.9-35.2 [facility] Comment on above: Performed By: #### C BC #### [facility] [address] [place] [address] Dr. Shawn Cosme MCV (RBC) [Entitic vol] 88.7 fL Normal 81.0-99.0 [facility] Comment on above: Performed By: #### C BC #### [facility] [address] [place] [address] Dr. Shawn Cosme MONO # 0.8 103/ul Normal 0.3-0.8 [facility] Comment on above: Performed By: #### C BC #### [facility] [address] [place] [address] Dr. Shawn Cosme Monocytes/100 WBC (Bld) 6.9 % Normal 1.7-12.0 [facility] Comment on above: Performed By: #### C BC #### [facility] [address] [place] [address] Dr. Shawn Cosme NEUT # 7.8 103/ul Critically high 1.4-6.5 [facility] Comment on above: Performed By: #### C BC #### [facility] [address] [place] [address] Dr. Shawn Cosme Neutrophils/100 WBC (Bld) 70.3 % Normal 43.0-75.0 [facility] Comment on above: Performed By: #### C BC #### [facility] [address] [place] [address] Dr. Shawn Cosme Platelet mean volume (Bld) [Entitic vol] 9.3 fL Critically low 9.5-13.5 [facility] Comment on above: Performed By: #### C BC #### [facility] [address] [place] [address] Dr. Shawn Cosme PLT 310 103/ul Normal 150-450 [facility] Comment on above: Performed By: #### C BC #### [facility] [address] [place] [address] Dr. Shawn Cosme RBC 4.53 106/ul Normal 4.20-5.40 [facility] Comment on above: Performed By: #### C BC #### [facility] [address] [place] [address] Dr. Shawn Cosme WBC 11.1 103/ul Critically high 4.0-11.0 [facility] Comment on above: Performed By: #### C BC #### [facility] [address] [place] [address] Dr. Shawn Cosme PROF CHEM 8 (BAS METB)on Anion gap [Moles/Vol] 13.8 mmol/L Normal [facility] Comment on above: Performed By: #### H ANUEL, BMP #### [facility] [address] [place] [address] Dr. Shawn Cosme Calcium [Mass/Vol] 9.2 mg/dL Normal 8.5-10.1 [facility] Comment on above: Performed By: #### H ANUEL, BMP #### [facility] [address] [place] [address] Dr. Shawn Cosme Chloride [Moles/Vol] 100 mmol/L Normal 98-107 [facility] Comment on above: Performed By: #### H ELLAPN, BMP #### [facility] [address] [place] [address] Dr. Shawn Cosme CO2 [Moles/Vol] 27.1 mmol/L Normal 21.0-32.0 [facility] Comment on above: Performed By: #### H ELLAPN, BMP #### [facility] [address] [place] [address] Dr. Shawn Cosme Creatinine [Mass/Vol] 0.96 mg/dL Normal 0.55-1.02 [facility] Comment on above: Performed By: #### H ELLAPN, BMP #### [facility] [address] [address] [address] Shawn Cosme EGFR-AF UZBEK >60 Normal >=60 [facility] Comment on above: Performed By: #### H STROPN, BMP #### [facility] [address] [address] [address] Shawn Cosme EGFR-NON AF UZBEK >60 Normal >=60 [facility] Comment on above: Performed By: #### H STROPN, BMP #### [facility] [address] [address] [address] Shawn Cosme Glucose [Mass/Vol] 110 mg/dL Critically high 74-106 [facility] Comment on above: Performed By: #### H STROPN, BMP #### [facility] [address] [address] [address] Shawn Cosme Potassium [Moles/Vol] 3.2 mmol/L Critically low 3.5-5.1 [facility] Comment on above: Performed By: #### H STROPN, BMP #### [facility] [address] [address] [address] Shawn Cosme Sodium [Moles/Vol] 138 mmol/L Normal 136-145 [facility] Comment on above: Performed By: #### H STROPN, BMP #### [facility] [address] [address] [address] Shawn Cosme Urea nitrogen [Mass/Vol] 8.0 mg/dL Normal 7.0-18.0 [facility] Comment on above: Performed By: #### H STROPN, BMP #### [facility] [address] [address] [address] Shawn Cosme Urea nitrogen/Creatinine [Mass ratio] 8.3 mg/mg Normal [facility] Comment on above: Performed By: #### H STROPN, BMP #### [facility] [address] [address] [address] Shawn Cosme TROPONIN, HIGH SENSITIVITYon 01-14-2022 HSTROP 2.7 pg/mL Critically low 4.0-51.3 [facility] Comment on above: Result Comment: CUT- OFF POINTS HAVE BEEN ESTABLISHED BASED ON THE FOURTH UNIVERSAL DEFINITIONS OF MYOCARDIAL INFARCTION. THE UPPER REFERENCE LIMIT (URL) OF TROPONIN, DEFINED THE 99TH PERCENTILE OF cTnI DISTRIBUTION IN A REFERENCE POPULATION, HAS BEEN CONFIRMED THE DECISION THRESHOLD FOR UT DIAGNOSIS. Performed By: #### H ANUEL, [facility] #### [facility] [address] [address] [address] Shawn Cosme XR CHEST 1 Von 01-14-2022 XR CHEST 1 V EXAM: XR CHEST 1 V HISTORY: CHEST PAIN, UNSPECIFIED COMPARISON: Chest radiograph 04/26/2016 TECHNIQUE: Single AP portable chest radiograph. FINDINGS: The cardiomediastinal silhouette is unremarkable and unchanged from prior exam. No focal lung consolidation, pleural effusion, pulmonary congestion or pneumothorax. IMPRESSION: No acute findings. Electronically authenticated by: YANETH YARBROUGH Date: 2022-01-14 15:09 [facility] A1C HEMOGLOBINon 12-06-2021 HbA1c (Bld) [Mass fraction] 6.0 % [employer] Other HbA1c (Bld) [Mass fraction]o n 12-06-2021 A1C HEMOGLOBIN [facility] [employer] Other MRI Knee w/o Lefton 11-03-19 MRI Knee w/o Left HISTORY: Anterior an d posterior left knee pain. Difficulty with flexion. Instability. TECHNIQUE: Routine non-contrast MRI of the left knee COMPARISON: None RESULT: MENISCI: Medial Meniscus: Intact Lateral Meniscus: Increased signal within the anterior horn appearing to extending to the inferior articular surface suspicious for nondisplaced horizontal tear. LIGAMENTS: ACL, PCL, MCL, LCL Complex: Intact CARTILAGE: Within normal limits. TENDONS: Distal quadriceps intact. Mild patellar tendinosis without tear. Popliteus appears intact. BONES AND MARROW: No evidence of fracture or bone marrow replacing process. MUSCLES: Muscle bulk and signal intensity are normal. JOINT FLUID AND SYNOVIUM: No joint effusion. No synovitis. Small Zacarias's cyst. OTHER: Patella mary jo. Shallow trochlear morphology. Small amount of edema signal in the infrapatellar fat pad. Lateral subluxation of the patella. TT???TG distance measures approximately 2.0 cm. IMPRESSION: Findings suspicious for lateral meniscal tear. Findings predisposing to patellar instability/maltracking. Report reported and signed by Saroj Vee on 11/02/2021 1310 Normal [facility] [employer] Coding Summary.on 10-12-2021 Coding Summary. CD:[id number] Gh0bWw+ PGhlYWQ+TD0PEMRxM67ktGSpwQ8 PP0pJEC8KDEKUNVWKTF5ASH3uyR W5RJjkK1EisuYb BjgojHVrOM36UVh2SCK8mTdbIAo upO1chRNmP7v5DpCwKZ97xN54XE moREBkMeP2TrSlnzruvIYw U5bpKtQgsCJsOll+PHRhYmxlIHd nBKNgMLalQWWjLeOdcGaoYQ0sQp 9yZGVyLWNvbGxhcHNlOiBj i3uiGUEvGGhyOU1vpFopA8FpuMF 9UGGli2l0Sx50uGV+WYNpBTB8jK ovOUlbp812VeGgd2caYXZ4 bTQvFCzvZMA0H36xt1X5UZIgAJR vTVT7bSQ9tQ2ovGpdchtsA0WwuB GoBpL3SWA8sXVejD2vkMwt aiequG0bAdp+B63MYV1LZUVXJV3 OVzi6V7YrMqvctKQ+KY23RTIwMU 96kHOqjOSfq0cbxTg1KaOi YDMnOCT1qLruWZeay1InPJCoD31 yhFDud2J2TQFuqDbhhCNpEiXmlP L8bY9lBCgwvksev0vztddg Bcodx0tkfj58eH60I10pFYxeWQC nJDN6QYUoBPHcyMstol1dvE5fDs 8+UVhzc3vrd2ldxEw3LgKg JVDvbrSuoTilRRX4r5QbGn43U3E nxZznc8FpJtk6rs37lSIpd2Z9qM W2ZCckXEShxJ5eGMlzQwT0 SFBhMfXtlO57rINhDNvdFx3mkKc juCfoCJ9zDCRcrmmqLHUxpC6fSX XnxHWyxJdsDO5qXUHwwuab i847AkWiVUZ0PNDscDDzN0UwaH2 vClAuVLMiFMLcQ0OfbVNaMHghV4 42NQuxEwI2IUYmgvDfN9Mg QIOpbVqsYoH0u1L6Oe4Se8Zpvnz hFBC9MJdsRBW7NeE9NwClFrE2X9 KlMts5WQKaiBybOG4uJ8Lr GXBzoqzcntachOZ6SOZxHHKqqA6 0uKYvUIdlQn4mq4C3q426YLUqJE UqsX07Dg6olXjaASGuqYUD zA3wsgswe2zzgqnnWdIjBDGaPZy 5PPq2IFFoeQnbVfZeGZM9BkC0DL Y5vJZdcQ4xbWunghrdxW0m Oyc+G53reA3qGLR3LXA2lpueBPN oetWnMU75JD23Q0WrEdgvcXQqgJ U+IWUwgwGvzKttCA8qZpZc h8wmu9UcVSojN0VsVAVnDZijOzs 1SHWgWNN8pUF8bI9hZGCrZDpkk7 I3aNJ7M8SkcoCfkn5yl7ra NVFrHQjrS91adMRex7T6FHQrxIJ 9EXQaiUtuCgIgnT21Nck+PGNvbG tsj0QoVnzqx4dfh3ynlJg4 DlQsVMNmqcXrdIzkELY3n9ZcQm1 4B99hLRxrXFKiJVDdZBKeKTCssY hhat7zyQ7iZx9+PGNvbCB3 oVH4nV1lXNPnNtF8NQsvG079RqV fzZNvNbmdq8gpp5gqcCg1BuSdMX LirnCeiTpxARS5s4NwRx63 O55rMMdiCPDeRKKeCPXfAVBpoRu eac6tjD6vTx2+HK9fm1onpd86kE 48dHI+GVTpVDC8yNlwNXkl BUWpwY2gCNmbWyQ3STHpCiCthU3 8wRAxSWvhVh6siLecaTwlXJ8hKI Kxkqmlu023VrCed4bmFIUo eLRcBKvvHAC8L45iu7E3HIJdYFO dAAG2iUT2nH1rbNfwrywreISvkL cbgaNafJckWNwbVYcdK170 IHRvcDsnPlBhdGllbnQgTmFtZTo 8O1IuCbs6OCIqwAnmOD1txULqEA pmNw3fpJniyFgwDO2wTPRf nbsbb548QwZpt2vqHIEzoMVcJGj tLAW7Q86xi6E7BKLnKVPrULY3eH L2wT3gkGbtqfsroENzeErl prTubJpfHWafRDcaF788PHMeaRs jEpIjwaMtJIBhgHQ8CU61GN95nI Bmk3W2kPZ6U3CcLPVtbwva tmprwQE4OUFnRVExhN70Co5hzTk dJi0iRNVjYYI6AXSrhJCjB7IigL 9jFtXnPRNuJMUtI2AmcBEi DReeB099CApxFkA4YUAddkHqY2K fZISnfLiwBgW5o3A0Qk2TW0X6RD 20PB90xFOtw8N7hCC8G6Da WQZduqjmlrlyiOS2CNZuBONrzR4 4Av7bjMtvAx4eSOIyXGJ1EJTexQ QgB5FykN1bUhSoQJKbBSPr N5HyiOSeSHdfP796MWguUfD1ZXB vyhMaF3FlJDBknAhxVlH5m3N4Tq 9YLAo2HS00RE22dFZzg5A9 nSE3K6GjOGMoqaitiqzweWS6IIT bTSTunJ26Id2cgKjzNz2lHHDwBI H2UTAjjNJaX9PenX3zGvSv AQKqYFYoE8LehQXyUGqnB692HVg rIcJ6JNGjwjVvK4AvDFCokRgtPc Q8s8Y1Fu0LISVuTE94WZW8 aLV3UF52OD98Q5OsFxfrbKWimQG +PHRhYmxlIHdpZHRoPScxMDAlJy GmbCnzMB7hZg2pXGSoYVRk fWcnhEVkIeQlb5riEHRlOLofAY4 jjOijJ1FraTT1GZPfl6k7Ag32G4 6bA9OppYI+UFAfwNR4fNJ7 jG1eLpCaJlZ0AZdbM646TdZbtUR zVkran5gky3qkhRa9FeK9ERUlcd LamHsuOBT5b1DwCk93C79m IHdpZHRoPSIxNSUiIHZhbGlnbj0 oiX2aIo0+TUZryMP7pCE6uX0lMh NlPzO0FKerP884AxYoiLHs Wjhmy5ofa0jsfJg1YtCjUNEosaM jlHxfNXG9y3UgGb20S3PokDnzz2 LbUnm7zs57iJMoe4Y9tQP8 T9RxRQHikptutUOctQiaIC3uHHL vfckfRGZdmJ1jUQZtF9y4BiVjBr P0QPjxY2JbieX7UDHseENu ETkcRXF1Z33aj0K2VYUuTZPkXHE 2cJP4kV2qyUcbhujwlLSvoEtbdk EsrZbrIGpcREknS470SZEj yNxrYTMngK0tEGVosNIjvZyyLC6 zQLDqiyocGfEGQn1OOBEtHJdNDX 7OHFV2S3YpIak2SMDcuKtu WE0kwIOeZBuuPd9iiRlurVepZX0 pGQByduolKDXgzK4eZPApzXDxzF fcKW1gEUMepftbl609UrPf QTC3MEUwyJGtN4BkmV3uFrXdUHX rLCXjJ6VglMRfGGyvO806OUiaKf O2BWOszbVmK9YaCOYkmIkq TnF0p6Z1Tt2sRt2yZf5rYIn8QQ2 4CN31mMPak9S5sKE3M5RwCYVsia hlwgfphSN2CKEyVPLtnD77 gZKpLWyyZz4ps0R8w985OFVcSEW mnA88Ur0opZnmOQWacPSVuH7xqd pno8fmqsenTgDrMTGlJBp7 CGo3FZZniNzaJyVkPWQ1ViV8EXB 8aOVvoG5naGiojexleN2tIwt+Mz KtAXHpfwK2M9VfCxj4OQJp aSroGA5lvEGuKGvwJj0qtRyumMk rFG4eMRKioqsgOWHuxT6pSMHpwZ RbfEvtPY0ePAZvemphr466 UqDfNPI5ATTrkTAlR3GisB3uKiB sMBMnWRDoC4IyoOOaROpkG212AG iaAbP6YKYajvJcA8KeLEKq oRwyXvC0x6C3Na9PBJ6huWT3N2H sQun2NESrgVqnWW1oeTOhQQvwEi 4tlZcwqMxcAK1mIVEmnkbl QULjdX7yAICptGOtmGciNI3eAJU zhzbqg069YhRhQSQ5ONGwmHXiM6 IzlT6fIjKmGVYlXKPcK8Ld vRYyOUctQ596QCaqFvK9HCEveyM nB9OvTAWowQpbVlB0b7L6Cd0SiF YoXXEqCF61LQ39UZ49M3Zd PjwvdGFibGU+PHRhYmxlIHdpZHR jBUlbUHCjBqGejMavIP4aPf8zGS GiTTHteAwvnXEcQxByi9ro ENMxWTxxZC0raSztZ0EvjOW6NNH ob2q7Im20J45wP5FouGT+PGNvbC V6iIU3bH6dInAxTqY2JLna Z486KtGssCIfEcucv2gar7dsfXb 9GsSuHHCwacSwyKfkLOQ2y7FbYs 49U86zOXihPQPkYMOnXMQf HXQyrYwgsm3klC5nVc0+PGNvbCB 4oWR0dC3gXrYyXfM9UIgvH756Dx RphHZvXsssG55hQ0JvgBT+ HCOrMxd9PQByiAmwVE7rrVBaJLw qIu2eXHV4XgIqSmEyBJpsR5NoSE BbddatlpmhqWL8YUIdMBUf aJ28Cg1mfOxeGw5dIOZeNNX9FHO upTCyL2JndU7xUrNeWYUgVPXcZ4 IugSKuZKudG448ZZeiQvJ2 VCQzbiGbD0DmVKGimXkgGsW1e1N 7Hh2YkTmyoYNmGZ1aReQoUEj0M2 JcQzf2ODUmcAhrEG8bvHFh MEhoAl2mgOnnvKmfJQ9mDTQwmyw mf303IzXax2urWLUdeHQlZOnwCW S5J02le2O8GDXrEWRpLQE2 oNW9tU0cqMcmqocmkLKarOoihvV xuMfsBZpdIJyuZ611PRJbbZndJb RZAkm8A7NiNjo4XWBzoAcm DD3cjVQrCTddRm9mtJddmXweZW9 aYCVfgactk060UlLgu2whHUHcrR YoVTldIGQ0C66ja5N0VAPa PDLmFUM8tNZ1fW7duEitymjroTL hcNaaiiTbsZimPYquMBdcG923IY PgcDugVz4JDwo6U1AwXmt1 YCZtaPjpID5fpOSqLUrdRs9rzVu jbYdiIG3pWJYhskdjt103TrPoz8 cfCBHisYOhSEqhNRL9R71w c0B7KOThEAEoOMT0tEZ0iY8cvYu nbjogbGVmdDsgdmVydGljYWwtYW dxR565RGXopBdrApOhsDMp OjwvdGQ+DR60td82O5PfMfrxYux 5IJTdIHJ6iUQ2wX8xMVAeIQcht3 K2qVP5M5KjdyTkyk8xk2ci YXBz (more content not included)... Normal [facility] Consent for Procedure/Surger yon 10-11-2021 Consent for Procedure/Surgery [id number]:[address] [facility] Consent for Treatmenton 05-2 Consent for Treatment [id number]#[id number]:127 Normal [facility] IntraOperative Documentson 0 10-11-2021 IntraOperative Documents [id number]#[id number]:[address] [facility] Main OR Intraoperative Recor don 10-11-2021 Main OR Intraoperative Record IntraOp Document Type FTURO Summary Primary Physician: Constantino HOEWLL MD Finalized Date/Time: 10/11/21 11:27:40 Pt. Name: XIANG MAHONEY/Sex: 1990 Female Med Rec #: [id number] Physician: Constantino HOWELL MD Financial #: [id number] Pt. Type: O Room/Bed: / Admit/Disch: 10/11/21 09:59:55 - Institution: Case Times FTURO Entry 1 Patient Times In Room 10/11/21 11:12:00 Out Room 10/11/21 11:27:00 Procedure Times Start 10/11/21 11:20:00 Stop 10/11/21 11:25:00 Anesthesia Times Last Modified By: Carissa Harris RN 10/11/21 11:27:35 Case Attendance FTURO Entry 1 Entry 2 Entry 3 Case Attendee LYNDA CAMEJO, Constantino Luna THEOLOGY PROFESSOR, Carissa Harris RN, Carissa Chu Role Performed Surgeon - Primary Scrub - Primary Opticianry Teacher - Primary Time In 10/11/21 11:12:00 10/11/21 11:12:00 10/11/21 11:12:00 Time Out 10/11/21 11:27:00 10/11/21 11:27:00 10/11/21 11:27:00 Procedure CYSTOSCOPY LOCAL WITH CYSTOSCOPY LOCAL WITH CYSTOSCOPY LOCAL WITH URETHRAL DILATION(.) URETHRAL DILATION(.) URETHRAL DILATION(.) Comments Last Modified By: Steven SHAFFER, Carissa Harris RN, Carissa Whitley RN 10/11/21 11:27:36 10/11/21 11:27:36 10/11/21 11:27:36 Surgical Procedures FTURO Entry 1 Procedure Description Procedure CYSTOSCOPY LOCAL WITH Modifiers . URETHRAL DILATION Surgeon Description CYSTOSCOPY LOCAL WITH URETHRAL DILATION; FISH and CYTOLOGY Primary Procedure Yes Primary Surgeon LYNDA CAMEJO, Constantino Payton Start 10/11/21 11:20:00 Stop 10/11/21 11:25:00 Anesthesia Type Local Surgical Service Urology Wound Class 2 - Clean-Contaminated Last Modified By: Carissa Harris RN 10/11/21 11:26:06 General Case Data FTURO Pre-Care Text: Classifies surgical wound, implements aseptic technique, initiates traffic control Entry 1 Case Information OR URO 1 FT Case Level None Wound Class 2 - Clean-Contaminated Specialty Urology Preop Diagnosis GROSS HEMATURIA , WEAK Postop Same As Preop Yes STREAM , STRESS INCONTINENCE Postop Diagnosis GROSS HEMATURIA , WEAK Outcomes Met? Yes STREAM , STRESS INCONTINENCE Last Modified By: Carissa Harris RN 10/11/21 10:30:01 Post-Care Text: The patient is free from signs and symptoms of infection EU IntraOp - FTURO Pre-Care Text: Implements protective measures prior to operative or invasive procedure, confirms identity before the operative or invasive procedure, verifies operative procedure, surgical site, and laterality Entry 1 EU Perioperative Protocols Procedure(s) CYSTOSCOPY LOCAL WITH Patient Identity Birthday, ID Band URETHRAL DILATION(.) Verified (select at Check, Patient least 2): Participation Consents / H and P HandP, Surgery/Procedure Operative Site N/A Verified Consent Marking Verified Surgical Site Yes Laterality Verified Yes Verified Procedure Verified Yes Correct Patient Yes Position Verified Availability Equipment, Medication Time Out Constantino HOWELL MD, Verified (If Participants Carissa Luna CST Applicable) Steven Suero RN, Kimberly Y Time Out Complete 10/11/21 11:13:00 Allergies Reviewed? Yes Allergies Reviewed Self/Patient With Body Position Frog Legged Prep Area PERINEUM Prep Agents Betadine Solution Skin. Condition Dry, Warm, Unable to Description UNABLE TO VISUALIZE DUE Visualize TO PATIENT PARTIALLY CLOTHED Additional FISH, Other (See Specimens Comment FISH AND CYTOLOGY Specimens Collected Comment) Vitals - EU Blood Pressure 104/63 Pulse 70 bpm Respirations 16 br/min SPO2 EBL 0 IandO - EU Total Intake 0 mL Total Output 0 mL Outcomes Met? Yes Last Modified By: Carissa Harris RN 10/11/21 11:13:57 Post-Care Text: The patient is free from signs and symptoms of injury caused by extraneous objects Sign Out FTURO Entry 1 Before Patient Leaves OR Nurse verbally Yes Nurse verbally Yes confirms with the confirms with the team the name of team that the procedure(s) instrument, sponge, recorded and needle counts are correct (or N/A) Nurse verbally Yes Nurse verbally Yes confirms with the confirms with the team how the team whether there specimen is labeled are any equipment (including patient problems to be name), if applicable addressed Sign Out Complete 10/11/21 11:25:00 Last Modified By: Carissa Harris RN 10/11/21 11:25:52 Case Comments Finalized By: Carissa Harris RN Document Signatures Signed By: Carissa Harris RN 10/11/21 11:27 Normal [facility] Main OR Preoperative Recordo n 10-11-2021 Main OR Preoperative Record Holding Area Document Type FTURO Summary Primary Physician: Constantino HOWELL MD Finalized Date/Time: 10/11/21 10:25:28 Pt. Name: XIAGN MAHONEY/Sex: 1990 Female Med Rec #: [id number] Physician: Constantino HOWELL MD Financial #: [id number] Pt. Type: O Room/Bed: / Admit/Disch: 10/11/21 09:59:55 - Institution: Case Times Holding FTURO Pre-Care Text: Verifies consent for planned procedure, identifies individual values and wishes concerning care, includes family members in perioperative teaching Secures patient's records' belongings, and valuables, maintains patient's dignity and privacy, and maintains patient confidentiality Entry 1 In Holding 10/11/21 10:21:00 Outcomes Met? Yes Last Modified By: Ramesh West LPN 10/11/21 10:21:50 Post-Care Text: The patient participates in decisions affecting his or her perioperative plan of care The patient's right to privacy is maintained Surgery Checklist FTURO Entry 1 Patient Birthday, Patient Procedure History and Physical, Identification: Participation Verification: Surgical Consent, With Patient NPO after Midnight: n/a Personal Items: Glasses, Jewelry Personal Items glasses, earrings, Limitations: knee brace Comment: necklace, Complaints of Pain: No Skin Integrity Unable to Visualize Vitals - EU Blood Pressure 102/68 Pulse 70 bpm Respirations 16 br/min SPO2 Additional FISH Specimens Collected Last Modified By: Ramesh West LPN 10/11/21 10:25:20 General Comments: Temp 36.3 Finalized By: Ramesh West LPN Document Signatures Signed By: Ramesh West LPN 10/11/21 10:25 Ramesh West LPN 10/11/21 10:25 Normal [facility] Operative Reporton Operative Report Patient: SANGITA MAHONEY Age: 30 years Sex: Female : 1990 Associated Diagnoses: None Author: Constantino HOWELL MD Procedure Operative Information Details: Date/ Time: 10/11/2021 11:29:00. Pre-Op Dx: Gross Hematuria - R31.0, Mixed Urinary Incontinence - N39.46, Urgency - R39.15, Urethral Stricture - Other Post Infective Female - N35.12. Post-Op Dx: Same. Anesthesia Type: Local. Procedure: Local Cystoscopy with Urethral Dilation. Complications: None. Risks/Benefits/Informed Consent: Surgical risks, benefits, details of the procedure have been explained to the patient, Full informed consent has been obtained. Intraoperative Information Prepped: Patient is brought back to the endoscopy suite, Patient is placed in modified dorso/lithotomy position, Patient prepped in the usual fashion with Betadine solution, 2% Xylocaine Jelly is placed per Urethra, After waiting several minutes the Cystoscope is introduced. The Urethra is: Tight. The Bladder is: No bladder tumors. No stones. No LINK. No prolapse. No atrophic vaginitis.. The ureteral orifices: Show efflux of clear urine. The Urethra was dilated to: 30 [place] w/ sounds. Devices Implanted: None. Removal: Cystoscope is removed, The patient tolerated it well. Postoperative Information Discharge: Patient is discharged home with antibiotic coverage, Follow up arranged. Normal [facility] Comment on above: Result Comment: Elec tronically Signed By: LYNDA CAMEJO, Constantino Cook.jelena\Date and Time Signed: 10/11/21 11:30 EDT Lab Reportson 05-09-2021 Lab Reports [id number]#[id number]:127 Normal [facility] RAD - CT Reporton 05-09-2021 RAD - CT Report [id number]#[id number]:127 Normal [facility] CREATININEon 05-06-2021 Creatinine [Mass/Vol] 0.89 mg/dL Normal 0.52-1.04 [facility] Comment on above: Performed By: #### C AIDEE #### [facility] [address] [place] [address] Dr. Shawn Cosme EGFR-AF UZBEK >60 Normal >=60 [facility] Comment on above: Performed By: #### C AIDEE #### [facility] [address] [address] [address] Shawn Cosme EGFR-NON AF UZBEK >60 Normal >=60 [facility] Comment on above: Performed By: #### C AIDEE #### [facility] [address] [place] [address] ABD/PELV W CONon 05-06-20 CT ABD/PELV W CON EXAMINATION: CT ABD/ PELV W CON HISTORY: Ran hematuria , nausea and vomiting, abdominal pain COMPARISON: CT abdomen pelvis 07/23/2015 TECHNIQUE: Axial, Coronal, and Sagittal images were created with IV contrast. Dose reduction techniques were achieved by using automated exposure control and/or adjustment of mA and/or kV according to patient size and/or use of iterative reconstruction technique. FINDINGS: LUNG BASES: No visible pulmonary or pleural disease. LIVER: Fatty infiltration of liver. BILIARY: Cholecystectomy. PANCREAS: No lesion, fluid collection, ductal dilatation, or atrophy. SPLEEN: No enlargement or focal lesion. ADRENALS: No mass or enlargement. KIDNEYS: No mass, obstruction, or calcification. BOWEL/MESENTERY: No visible mass, obstruction, or bowel wall thickening. AORTA/VASCULAR: No aneurysm or dissection. RETROPERITONEUM: No mass or adenopathy. LYMPH NODES: No adenopathy. URINARY BLADDER: No visible focal wall thickening, lesion, or calculus. PELVIC ORGANS: Right ovary contains a 3.6 cm cyst. No visible mass. Pelvic organs appropriate for patient age. ABDOMINAL WALL: No mass or hernia. BONES: L4-5 posterior mechanical stabilization without evidence of hardware fracture or loosening. L4 mild grade 1 anterolisthesis and disc space are within L4-5. Posterior decompression L3, L4, and L5. Fracture of the L3 left pars interarticularis which appears to be chronic. OTHER: Negative. IMPRESSION: 1. No urinary tract calculi, mass, or obstructive uropathy. 2. Unremarkable bowel. 3. Right ovarian 3.6 cm cyst. 4. No suspicious findings to account for patient's symptoms. Electronically authenticated by: MARILIA STUART Date: 2021-05-06 13:55 [facility] Reminderson 05-04-2021 Reminders - From: Maricruz Werner To: EU - Clinical; Sent: 04/20/2021 13:15:28 EST Show up: 05/04/2021 13:15:00 EST Subject: cytology Reminder/Recall Cytology sent to [facility] [place] negative results Normal [facility] Pathology Noteon 04-24-2021 Pathology Note [id number]:127 Normal [facility] RAD - MISCon 04-21-2021 RAD - MISC [id number]:127 Normal [facility] Ambulatory Clinical Summaryo n 04-20-2021 Ambulatory Clinical Summary {[id number]}CD:[id number] Normal [facility] Ambulatory Clinical Summary {[id number]}CD:[id number] Normal [facility] Patient Educationon 04-20-20 Patient Education Urology Hematuria, Adult Hematuria is blood in the urine. Blood may be visible in the urine, or it may be identified with a test. This condition can be caused by infections of the bladder, urethra, kidney, or prostate. Other possible causes include: ? Kidney stones. ? Cancer of the urinary tract. ? Too much calcium in the urine. ? Conditions that are passed from parent to child (inherited conditions). ? Exercise that requires a lot of energy. Infections can usually be treated with medicine, and a kidney stone usually will pass through your urine. If neither of these is the cause of your hematuria, more tests may be needed to identify the cause of your symptoms. It is very important to tell your health care provider about any blood in your urine, even if it is painless or the blood stops without treatment. Blood in the urine, when it happens and then stops and then happens again, can be a symptom of a very serious condition, including cancer. There is no pain in the initial stages of many urinary cancers. Follow these instructions at home: Medicines ? Take wytb-all-vdexfhi and prescription medicines only as told by your health care provider. ? If you were prescribed an antibiotic medicine, take it as told by your health care provider. Do not stop taking the antibiotic even if you start to feel better. Eating and drinking ? Drink enough fluid to keep your urine clear or pale yellow. It is recommended that you drink 3?4 quarts (2.8?3.8 L) a day. If you have been diagnosed with an infection, it is recommended that you drink cranberry juice in addition to large amounts of water. ? Avoid caffeine, tea, and carbonated beverages. These tend to irritate the bladder. ? Avoid alcohol because it may irritate the prostate (men). General instructions ? If you have been diagnosed with a kidney stone, follow your health care provider's instructions about straining your urine to catch the stone. ? Empty your bladder often. Avoid holding urine for long periods of time. ? If you are female: ? After a bowel movement, wipe from front to back and use each piece of toilet paper only once. ? Empty your bladder before and after sex. ? Pay attention to any changes in your symptoms. Tell your health care provider about any changes or any new symptoms. ? It is your responsibility to get your test results. Ask your health care provider, or the department performing the test, when your results will be ready. ? Keep all follow-up visits as told by your health care provider. This is important. Contact a health care provider if: ? You develop back pain. ? You have a fever. ? You have nausea or vomiting. ? Your symptoms do not improve after 3 days. ? Your symptoms get worse. Get help right away if: ? You develop severe vomiting and are unable take medicine without vomiting. ? You develop severe pain in your back or abdomen even though you are taking medicine. ? You pass a large amount of blood in your urine. ? You pass blood clots in your urine. ? You feel very weak or like you might faint. ? You faint. Summary ? Hematuria is blood in the urine. It has many possible causes. ? It is very important that you tell your health care provider about any blood in your urine, even if it is painless or the blood stops without treatment. ? Take fryw-akq-prnwtmg and prescription medicines only as told by your health care provider. ? Drink enough fluid to keep your urine clear or pale yellow. This information is not intended to replace advice given to you by your health care provider. Make sure you discuss any questions you have with your health care provider. Document Released: 05/07/2006 Document Revised: 10/01/2019 Document Reviewed: 06/09/2017 Elsevier Patient Education ? 2019 [employer] [facility] Physician Orderon 04-20-2021 Physician Order [id number]:[address] [facility] Reminderson 04-20-2021 Reminders - From: Michelle Andrew To: EU - Clinical; Sent: 04/20/2021 13:22:11 EST Show up: 05/09/2021 13:22:00 EST Subject: ct scan Due Date/Time: 05/18/2021 13:22:00 EST Reminder/Recall [facility] scan Abd/Pelvis w contrast, order faxed They will call pt to sched after auth approval Pt sched for Cysto/UD 05/31/21 Normal [facility] Urology Office/Clinic Noteon 04-20-2021 Urology Office/Clinic Note Chief Complaint Pt is here for 8 month follow up w/ KUB HPI Staff Xiang is a 30 y.o. female here for 8 month follow up w/ KUB. Previous Dx: kidney stone, urinary retention. S/P urodynamics done on 08/03/20. Pt states she does not feel like she has had any stones. Pt got KUB done at [facility] yesterday. Dysuria: denies Incomplete bladder emptying: denies Hematuria: denies Frequency: denies Urgency: denies Nocturia: denies Stream: slow trickle Leaking: yes Post void dripping: denies Wearing pads/ Depends: denies Urge incontinence: yes Stress incontinence: yes coughing sneezing Incontinence without Sensory Awareness: yes Abdominal pain: denies Flank pain: denies Sexual complaints: _ History of Present Illness reviewed UA. Reviewed last encounter. reviewed past KUB There have been no associated fever, chills, flank pain or blood in the urine. Review of Systems PHQ Score Initial Depression Screen Score: 0 ROS - Provider Constitutional: denies weight loss, denies hot flashes. Eyes: denies eye problems. Gastrointestinal: denies nausea, denies vomiting. Cardiovascular: denies chest pain or angina. Integumentary: no dryness Musculoskeletal: denies musculoskeletal symptoms. ENMT: denies otolaryngeal symptoms. Respiratory: no shortness of breath. Heme/Lymph: denies easy bleeding tendency, denies easy bruising tendency. Psychiatric: no confusion, no anxiety. Genitourinary: denies vaginal discharge, denies incontinence, denies dysuria, mild hematuria, mild urinary frequency, denies amenorrhea, denies menorrhagia, denies abnormal bleeding, denies pelvic pain, denies genital sores, and denies decreased libido. Physical Exam Vitals & Measurements HR: 68(Peripheral) BP: 137/85 HT: 180.0 cm HT: 180 cm WT: 132.0 kg WT: 132 kg BMI: 40.74 General Appearance: alert , no acute distress, well nourished, well developed female. Genitourinary: bladder nonpalpable, no flank pain. Assessment/Plan 1. Gross hematuria (R31.0: Gross hematuria) Pt saw blood in urine about 2 months ago. Discussed options. The patient is aware that a distinct etiology of the hematuria may not be clear upon conclusion of the workup. Will initiate hematuria workup to include upper urinary tract imaging with a CT , as well as evaluation of the urinary cells with urine cytology and possible a FISH test. Will send urine today. A cystoscopy will be scheduled to rule out lower urinary tract pathology. The rationale for this workup has been discussed, and all questions have been answered. Informed consent will be obtained. Prophylactic antibiotics will be given. 2. Stress incontinence (N39.3: Stress incontinence (female) (male)) When patients coughs she has no control and she leaks. pt had a Cysto/UD 07/2020 and no LINK or prolapse was seen at that time. 3. Weak urine stream (R39.12: Poor urinary stream) Pt states that her urinary stream is very weak to a dribble. Will schedule Cysto/UD. S/P Uros 07/2020 and shows that she felt the urge to void at 383ml, pt will continue to practice timed voids. UA is clear of any infections today. 4. History of kidney stones (Z87.442: Personal history of urinary calculi) KUB done 04/19/21 was neg for any urinary stones at this time 5. Glucosuria (R81: Glycosuria) UA shows 100mg in sample today I have reviewed the previous health record information and history for this patient from Dr. Howell Follow-up With When Contact Information LYNDA CAMEJO, Constantino Payton, [facility] [address], [place] [address]- [phone] Additional Instructions: Patient Education Hematuria, Adult I, Angelic Mcmillan, personally scribed for Dr. Howell on 04/20/2021 11:22:20. . Documentation recorded by the scribe, Angelic Mcmillan, accurately reflects the services(s) I performed and decisions made by me. Authenticated by Dr. Howell on 04/20/2021 11:23:56. 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 Medications acetaminophen 500 mg Tab, 500 mg= 1 tab(s), Oral, q6hr, PRN Albuterol (Eqv-ProAir HFA) 90 mcg/inh inhalation aerosol, 2 puff(s), Inhalation, q4hr, PRN albuterol 0.083% Inh Marjan 3 mL, 2.5 mg= 3 mL, Inhalation, q6hr, PRN (more content not included)... Normal [facility] Comment on above: Result Comment: Elec tronically Signed By: Constantino HOWELL MD\.br\Date and Time Signed: 04/20/21 11:24 EST\.br\Electronically Co-Signed By: Angelic Mcmillan MA\.br\Date and Time Co-Signed: 04/20/21 11:22 EST XR KUB 1 VIEWon 04-20-2021 XR KUB 1 VIEW EXAMINATION: XR KUB 1 VIEW HISTORY: Kidney stone , follow-up COMPARISON: Acute abdomen series 05/11/2013, CT abdomen pelvis 11/12/2013 FINDINGS: KIDNEY/URETER - RIGHT: No visible renal or ureteral calcifications. KIDNEY/URETER - LEFT: No visible renal or ureteral calcifications. PELVIS: No visible ureteral calcifications. Any visible calcifications favor phleboliths. BOWEL: No abnormal dilation or deviation. BONES: Posterior mechanical stabilization L4-L5 intervertebral disc spacer. Posterior decompression L3, L4, L5. OTHER: Negative. No abnormal gaseous collections. IMPRESSION: 1. No visible urinary tract calculi. Electronically authenticated by: MARILIA STUART Date: 2021-04-20 07:20 Normal [facility] URon 04-19-2021 , QUAL Negative Normal NEGATIVE [facility] Comment on above: Performed By: #### P REGU #### [facility] [address] [address] [address] Shawn Cosme XR lumbar spine 2-3V*on 03-22 XR lumbar spine 2-3V* [facility] [employer] Other XR lumbar spine 2-3V* [facility] [employer] Other XR lumbar spine 2-3V* [address] [place] [address] [employer] Other XR lumbar spine 2-3V* [place] [address] [employer] Other XR lumbar spine 2-3V* XRay Report [employer] Other XR lumbar spine 2-3V* Signed [employer] Other XR lumbar spine 2-3V* Patient: Xiang Mahoney MR#: [id number] [employer] Other XR lumbar spine 2-3V* 636 [employer] Other XR lumbar spine 2-3V* : 1990 Acct:[id number] [employer] Other XR lumbar spine 2-3V* Age/Sex: 30 / F ADM Date: 04/13/21 [employer] Other XR lumbar spine 2-3V* Loc: ICXD Room: Type: REG CLI [employer] Other XR lumbar spine 2-3V* Attending Dr: Saroj Nguyen MD [employer] Other XR lumbar spine 2-3V* Ordering Provider: Saroj Nguyen MD [employer] Other XR lumbar spine 2-3V* Date of Service: 04/13/21 [employer] Other XR lumbar spine 2-3V* XR/XR lumbar spine 2-3V*: M43.06 [employer] Other XR lumbar spine 2-3V* ([id number]) XR/XR thoracic spine 3V*: G89.29 [employer] Other XR lumbar spine 2-3V* Copies to: Saroj Nguyen MD [employer] Other XR lumbar spine 2-3V* XR thoracic spine 3V*, XR lumbar spine 2-3V* 04/13/2021 3:09 PM [employer] Other XR lumbar spine 2-3V* SIGNS AND SYMPTOMS: Pain between scapula. Right gluteal pain and posterior thigh pain [employer] Other XR lumbar spine 2-3V* PROTOCOLS: Frontal and lateral radiographs of the thoracic and lumbar spine [employer] Other XR lumbar spine 2-3V* COMPARISON: MRI of thoracic spine 05/05/[address] lumbar spine 03/11/2020 [employer] Other XR lumbar spine 2-3V* FINDINGS: [employer] Other XR lumbar spine 2-3V* Thoracic spine: [employer] Other XR lumbar spine 2-3V* The bones are in anatomic alignment with preservation of vertebral body heights. There is mild disc [employer] Other XR lumbar spine 2-3V* height loss in the lower thoracic spine with mild anterior and lateral osteophyte formation. No [employer] Other XR lumbar spine 2-3V* evidence of fracture or bony destructive lesion. [employer] Other XR lumbar spine 2-3V* Lumbar spine: [employer] Other XR lumbar spine 2-3V* There is evidence of previous posterior fusion and intervertebral fusion body hardware placement at [employer] Other XR lumbar spine 2-3V* L4-L5. There is posterior decompression from L3 through S1 similar to the prior CT. There is mild [employer] Other XR lumbar spine 2-3V* L5-S1 intervertebral disc height loss which is slightly worse when compared to the prior CT. There [employer] Other XR lumbar spine 2-3V* is a mild levoconvex curvature of the lumbar spine which is unchanged. There is no evidence of [employer] Other XR lumbar spine 2-3V* fracture or subluxation. There is evidence of prior cholecystectomy. Mild degenerative changes are [employer] Other XR lumbar spine 2-3V* noted in the sacroiliac joints. [employer] Other XR lumbar spine 2-3V* XR/XR thoracic spine 3V* [employer] Other XR lumbar spine 2-3V* IMPRESSION: [employer] Other XR lumbar spine 2-3V* Minimal degenerative changes are noted in the lower thoracic spine. No significant interval change [employer] Other XR lumbar spine 2-3V* is noted. [employer] Other XR lumbar spine 2-3V* No fracture or subluxation. [facility] [employer] Other XR lumbar spine 2-3V* Slight interval worsening of adjacent segment degenerative change at L5-S1. [employer] Other XR lumbar spine 2-3V* Unchanged fusion hardware and intervertebral fusion body at L4-L5 with posterior decompression from [employer] Other XR lumbar spine 2-3V* L3 through S1. [employer] Other XR lumbar spine 2-3V* Impression dictated by: Petros Diop M.D.04/13/2021 3:44 PM [employer] Other XR lumbar spine 2-3V* Dictation Location: [place] [address] [employer] Other XR lumbar spine 2-3V* Transcribed By: PWS 04/13/21 1544 [employer] Other XR lumbar spine 2-3V* Dictated By: Petros Diop II, MD 04/13/21 [facility]5 [employer] Other XR lumbar spine 2-3V* Signed By: [employer] Other XR lumbar spine 2-3V* 04/13/21 [facility]0 [employer] Other Provider Orderson 07-01-2020 Provider Orders [id number]#[id number] Coding Summaryon 02-02-2020 Coding Summary CODING DATE: 020 [facility] STATUS: Home PAYOR: Medicaid HMO ADMIT DX: REASON FOR VISIT DX: R05 Cough FINAL DX: PRINCIPAL: R05 Cough SECONDARY: PYMT PROC APC STAT DESCRIPTION DOCTOR NAME DATE NOTE: The code number assigned matches the documented diagnosis and / or procedure in the patient's chart. However, the narrative phrase printed from the coding software may appear abbreviated, or result in slightly different terminology. Coded By: Sonia Joya Date Saved: 02/02/2020 01:08 pm [facility] Consent Formson 02-02-2020 Consent Forms [id number]#1.00OT[facility] Provider Orderson 01-30-2020 Provider Orders [id number]#[id number] Normal [facility] 2019 Novel Coronavirus (CoVI D-19), GEORGE LCon 01-29-2020 SARS-CoV-2, GEORGE (COVID-19) LC Not Detected Not Detected [facility] Comment on above: Order Comment: [id number] 1 Result Comment: This nucleic acid amplification test was developed and its performance characteristics determined by [employer]. Nucleic acid amplification tests include PCR and TMA. This test has not been FDA cleared or approved. This test has been authorized by FDA under an Emergency Use Authorization (EUA). This test is only authorized for the duration of time the declaration that circumstances exist justifying the authorization of the emergency use of in vitro diagnostic tests for detection of SARS-CoV-2 virus and/or diagnosis of COVID-19 infection under section 564(b)(1) of the Act, 21 U.S.C. 360bbb-3(b) (1), unless the authorization is terminated or revoked sooner. When diagnostic testing is negative, the possibility of a false negative result should be considered in the context of a patient's recent exposures and the presence of clinical signs and symptoms consistent with COVID-19. An individual without symptoms of COVID-19 and who is not shedding SARS-CoV-2 virus would expect to have a negative (not detected) result in this assay. Performed At: [facility] [address] [facility] [place] [id number] Maria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 [R25.3]Order(s):CONSULT TO CHRONIC PAIN REHABILITATION (NON-PAIN ANESTHESIA) [7398967] Order #: [id number]: 1 CONSULT TO NEUROLOGY [9019] Order #: [id number]: 1Prescriptions as of 05/16/2017 Sig: GABAPENTIN 600 MG TABLET Take 600 mg by mouth three ti* VENLAFAXINE 75 MG TABLET Take 75 mg by mouth three nakita* DOCUSATE SODIUM 100 MG CAPSULE Take 100 mg by mouth twice da* LAMOTRIGINE 25 MG TABLET Take 25 mg by mouth once marta* HYDROXYZINE HCL 50 MG TABLET Take 50 mg by mouth three nakita* QUETIAPINE 300 MG TABLET Take 300 mg by mouth twice da* LIDOCAINE 5 % TOPICAL PATCH Apply 1 Patch as directed destin* DOXYCYCLINE HYCLATE 100 MG CA* Take 100 mg by mouth twice da* NORGESTIMATE 0.25 MG-ETHINYL * Take 1 tablet by mouth once d* OMEPRAZOLE 40 MG CAPSULE,JONAH* Take 40 mg by mouth once marta* ONDANSETRON 4 MG DISINTEGRATI* Take 4 mg by mouth every 8 ho*Problem List As Of Date: 05/16/2017(None)Medications Discontinued During This Encounter cyclobenzaprine (FLEXERIL) 5 mg tabl* 05/16/2017 Class: Historical Med Route: ORAL Sig: Take 5 mg by mouth three times daily as needed. Disc: Reason for discontinue is not on file. GUAIFENESIN/DEXTROMETHORPHA N (DEXTRO* 05/16/2017 Class: Historical Med Route: ORAL Sig: Take 30-600 mg by mouth. Disc: Reason for discontinue is not on file. gabapentin (NEURONTIN) 300 mg capsule 05/16/2017 Class: Historical Med Route: ORAL Sig: Take 300 mg by mouth three times daily. Disc: Reason for discontinue is not on file.Disposition: Return if symptoms worsen or fail to improve.Follow-up and Disposition History RecordedEncounter Number: [id number] Status:Closed by ANNABELLE CLIARE on 05/16/17 [facility] PROGRESSon 05-16-2017 PROGRESS HNO ID: [id number] thor: Annabelle Grigsby) Florencia: (none)Author Type: Physician AssistantType: Progress NotesFiled: 05/16/2017 4:45 PMNote Text:SPINE SURGERY ESTABLISHEDDATE OF SERVICE: 05/16/2017DATE OF LAST VISIT: 03/15/2017SUBJECTIVEXiang Mahoney is a 26 year old female presenting alone.CHIEF COMPLAINT: neck pain, bilateral arm pain, lower back pain andbilateral leg pain and numbnessHISTORY OF PRESENT ILLNESS: Xiang Mahoney reports that she feels worse now then at her last visit.She continues with lower back pain bilateral leg pain and numbness. Thepain goes down the backs of both legs and the medial portions of bothlegs. She had a fall in the beginning of April, while she was admittedin the hospital due to suicidal ideations. She reports, after the fall shewas numb from the waist down. The left leg is still weak. She had repeatMRI lumbar spine after that fall.She continues with neck pain and right arm pain. Some pain in the rightarm. Tingling in both hands, 5th, 4th fingers and thumb.She has difficulty walking. She most of the time uses a wheelchair. Shegets around the house with a cane, but very slowly and she shakes when shewalks.She reports of uncontrolled spasms and twitching in her body.She is here to go over her imagingPAIN EVALUATION 05/16/2017 Pain Score: 8 Pain Location: Back-Lower Description: Sharp;Throbbing;Spasm Duration Amount of Time: 4 Duration Units: Weeks Frequency: Continuous Intervention: Medication;Relaxation Comments: worst 10/10Pain Radiation: down the right and left thigh, below the right and leftknee and to the right and left foot/feet, from the left shoulder(s), leftelbow(s), left wrist(s) and left finger(s)Aggravating Factors: everythingAlleviating Factors: NonePain Ratio: Pain in the back and leg(s) is equal, Pain in the neck and armare equalPREVIOUS CONSERVATIVE TREATMENTS:OpioidsPhysical Therapy: Date(s) a while agoMembrane StabilizersINTERIM STUDIES REVIEWED: X-rays and MRIAMBULATORY STATUS: Impaired Home DistancesPED RED FLAGSNo No-Significant Injury to SpineNo-Use of Steroids for Prolonged DurationNo-Loss of Bowel/Bladder Control, Genital/Anal NumbnessNo-Recent Use of Intravenous (IV) DrugsNo-Difficulty Keeping Balance when WalkingYES-Progressive Weakness in Arms/LegsNo-History of Any Type of CancerNo-Unable to Find Position of ComfortNo-Pain at Night that Disturbs SleepNo-Recent Elevated Temp with Unknown CauseNo-Diagnosed with OsteoporosisNo-Unintentiona l Weight Loss or Gain*PED (Patient Entered Data) osteoporosis flag will display for females 55years or older and males 75 years or older.MEDICATIONS:gabapenti n (NEURONTIN) 600 mg tablet Take 600 mg by mouth three timesdaily.venlafaxine (EFFEXOR) 75 mg tablet Take 75 mg by mouth three times daily.docusate sodium (COLACE) 100 mg capsule Take 100 mg by mouth twice daily.lamoTRIgine (LAMICTAL) 25 mg tablet Take 25 mg by mouth once daily.hydrOXYzine HCl (ATARAX) 50 mg tablet Take 50 mg by mouth three timesdaily as needed.QUEtiapine (SEROQUEL) 300 mg tablet Take 300 mg by mouth twice daily.lidocaine (LIDODERM) 5 % Apply 1 Patch as directed every 24 hours.doxycycline hyclate (VIBRAMYCIN) 100 mg capsule Take 100 mg by mouth twicedaily.norgestimate 0.25 mg-ethinyl estradiol 35 mcg (MONONESSA) 0.25-35 mg-mcgper tablet Take 1 tablet by mouth once daily.Omeprazole 40 mg capsule Take 40 mg by mouth once daily.ondansetron orally disintegrating (ZOFRAN ODT) 4 mg disintegrating tabletTake 4 mg by mouth every 8 hours as needed.OBJECTIVEPHYSICAL EXAMBP 125/68 Pulse 78 Resp 18 Ht 182.9 cm (6') Wt 102.5 kg (226 lb) BMI 30.65 kg/e3JXMUPGU APPEARANCE: Obese.NEURO PSYCH: Patient oriented to person, place, and time. Mood pleasant.Benign affect.MUSCULOSKELETAL VISUAL INSPECTION CERVICAL: WNL THORACIC: WNL LUMBAR: WNLMOTOR: 5/5 in all muscle groups. left leg weak throughoutSENSORY: Normal sensory exam, bilateral lateral thigh decrease sensation,4+/5 with left knee flexion, left foot dorsiflexion.GAIT: Abnormal. Uses a cane, very slowAbsent left knee reflexNEURO TESTS:NoneDATA REVIEWImaging and outside records reviewedCervical MRI and xrays - normal. No disc herniation, no canal stenosisLumbar xrays - shows L4-5 spondylolisthesis, no movement on flex/extMRI Lumbar - shows post-operative changes from L3-5. No new discherniations, no stenosisDr Clayton has also reviewed the imaging.ASSESSMENT/PLANIMPR ESSION:(G89.4) Chronic pain syndrome (primary encounter diagnosis)(R25.3) Muscle twitchingJaalejandrina Mahoney is not a candidate for surgery at this time. RecommendCPRP with Dr Howell as per Dr Arnold.Will refer to Neuromuscular center to rule out any neuromuscular disease.1. Consults: Neurology Chronic Pain Rehabilitation Therapy (CPRP)2. Follow up: PRNThe majority of the visit was spent counseling and/or coordinating carefor the patient. Total face to face time was 20 minutes.SIGNATURE: Annabelle Claire PA-C PATIENT NAME: Xiang ScherersocoDATE: May 16, 2017 : 4:33 PM PAGER: Normal [facility] MR-MR lumbar spine wo/w con IMPORTon 04-23-2017 MR-MR lumbar spine wo/w con IMPORT Images were obtained outside of [facility] [id number] Normal [facility] MR-XR pre/post mri xray IMPO RTon 04-23-2017 MR-XR pre/post mri xray IMPORT Images were obtained outside of [facility] [id number] Normal [facility] MR-MR CERVICAL SPINE WO CONT IMPORTon 03-27-2017 MR-MR CERVICAL SPINE WO CONT IMPORT Images were obtained outside of [facility] [id number] Normal [facility] MR-MR CERVICAL SPINE WO CONT IMPORT Images were obtained outside of [facility] [id number] Normal [facility] CNOVon 03-15-2017 CNOV Office Visit (SPNSMN) -------XIANG MAHONEY ([id number]) 1990 FDate Time Provider Bacvmanxpq90/26/17 9:40 AM ANNABELLE CLAIRE) SPNSMN During your visit today, we recorded the following information about you: Pulse Respiration Blood pressure Weight 72/minute 18/minute 124/72 103 kg Height 1.829 Tosha Claire PA-C 03/15/2017 3:14 PM [facility] SURGERY OUTPATIENT CONSULTSERVICE DATE: 03/15/2017PCP: No PcpREFERRING PROVIDER:Dr Recinos - PCPConsult requested for an opinion regarding the evaluation and treatment oflumbar spine. My final impression and recommendations will be communicatedback to the requesting physician by way of the shared medical record or lettervia US mail.Vaibhav Mahoney is a 26 year old female presenting with mother.CHIEF COMPLAINT: lower back pain and bilateral leg pain and numbnesHISTORY OF PRESENT ILLNESSPRECIPITATING EVENT: NoneDURATION OF SYMPTOMS: Greater Than 1 YearXiang Mahoney reports that in August 28 2014 she had L3-4-[address] Brewer for bilateral leg numbness, bilateral leg pain and lower back pain andinability to walk. She reports that after surgery she did better. She was ableto walk but had permanent nerve damage. She was left with right buttock andvaginal numbness and numbness from left knee down.About 7 days after the surgery, she had fluid collection and leakage and wastaken back for exploratory surgery. She reports that leakage continued but shewas discharged anyway. On 09/27/14 she had emergency surgery with Dr Gracia,for CSF leak.She reports that she has been continuing for ongoing lower back pain, pain downthe backs of both legs to the ankles and on/off numbness in both legs, RANDgt;L.She reports that her pain is so bad she is unable to do anything at home oreven take care of her children. Her parents help her with everything.She had tried to do a SCS but the insurance denied it. She is here to see whather options may be.More recently in the last few moths she has tosha having neck pain, pain inbetween her shoulder-blades and pain down the left arm to the 5th finger. Shefeels like her balance is worse, she has tosha having falls and dexterityproblems.Throughou t the years, she has been on opioids, Gabapentin. She has done bothwater and land therapy. She has not done any injections due to prior history ofCSF leak.She does report of on/of urinary incontinence, but not complete. Just someleakage.PAIN EVALUATION 03/15/2017 Pain Score: 6 Pain Location: Back-Lower Description: Sharp Duration Amount of Time: 3 Duration Units: Years Frequency: Continuous Intervention: Relaxation;Cold;Heat Patient has had p/tPain Radiation: down the right and left thigh, below the right and left kneeand to the right and left foot/feet, from the left shoulder(s), left elbow(s),left wrist(s) and left finger(s)Aggravating Factors: any activityAlleviating Factors: NonePain Ratio: Pain in the back is greater than in the leg, Pain in the neck andarm are equalDERMATOMAL DISTRIBUTION:unknownAMBULAT ORY STATUS: Impaired Community DistancesFUNCTIONAL STATUS: Walk indoors, such as around the house (1.75 METs)Do light work around the house, such as dusting or washing dishes (2.70 METs)Take care of self, that is eating, dressing, bathing, using the toilet (2.75METs)PREVIOUS CONSERVATIVE TREATMENTS:OpioidsPhysical Therapy: Date(s) last yearMembrane StabilizersPREVIOUS SPINAL SURGERY:SURGERY #1: Lumbar laminectomy 08/28/14SURGERY #2: Lumbar re-exploration 09/04/14SURGERY #3: Lumbar exploration and CSF repair 09/27/14PED RED FLAGSNoNoYesNoYesYesNoYesYe sNoNo No-Significant Injury to SpineNo-Use of Steroids for Prolonged DurationYES-Loss of Bowel/Bladder Control, Genital/Anal NumbnessNo-Recent Use of Intravenous (IV) DrugsYES-Difficulty Keeping Balance when WalkingNo-Progressive Weakness in Arms/LegsNo-History of Any Type of CancerNo-Unable to Find Position of ComfortNo-Pain at Night that Disturbs SleepNo-Recent Elevated Temp with Unknown CauseNo-Diagnosed with OsteoporosisNo-Unintentiona l Weight Loss or Gain*PED (Patient Entered Data) osteoporosis flag will display for females 55 yearsor older and males 75 years or older.There is no problem list on file for this patient.Past medical history on file.FibromyalgiaOAGERDMigr ainesAsthmaPast surgical history on file.Lumbar surgery [id number]-bgrcqum x3No family history on file.Social History Marital status: Unknown Spouse name: Years of education: Number of children:Social History Main Topics Smoking status: Current Every Day Smoker Packs/day: 0.00 Years: 0.00 Alcohol use: NoALLERGIESAllergen Reactions- Amoxicillin Anaphylaxis- Calderón Anaphylaxis- Dilaudid [Hydromorp* Hives- Duricef [Cefadroxil] Hives- Ibuprofen Hives- Nsaids (Non-Steroid* Vomiting- Penicillins Anaphylaxis- [place] Dye Hives- [place] Hives- Vicodin [Hydrocodon* HivesMEDICATIONS:cyclobenza heidy (FLEXERIL) 5 mg tablet Take 5 mg by mouth three times daily asneeded.GUAIFENESIN/DEXTRO METHORPHAN (DEXTROMETHORPHAN-GUAIFENES IN ORAL) Take 30-600 mgby mouth.doxycycline hyclate (VIBRAMYCIN) 100 mg capsule Take 100 mg by mouth twicedaily.gabapentin (NEURONTIN) 300 mg capsule Take 300 mg by mouth three times daily.norgestimate 0.25 mg-ethinyl estradiol 35 mcg (MONONESSA) 0.25-35 mg-mcg pertablet Take 1 tablet by mouth once daily.Omeprazole 40 mg capsule Take 40 mg by mouth once daily.ondansetron orally disintegrating (ZOFRAN ODT) 4 mg disintegrating tablet Take4 mg by mouth every 8 hours as needed.REVIEW OF SYSTEMS:GENERAL: No weight loss or malaiseMUSCULOSKELETAL: Negative for joint pain, swelling or muscle painNEURO: No history of headaches, syncope, paralysis, seizures or tremorsOBJECTIVE:PHYSICAL EXAMBP 124/72 Pulse 72 Resp 18 Ht 182.9 cm (6') Wt 103 kg (227lb) BMI 30.79 kg/m8FACMUUT APPEARANCE: Well nourished, well developed, and no apparent distress.NEURO PSYCH: Patient oriented to person, place, and time. Mood pleasant. Benignaffect.MUSCULOSKELETA L VISUAL INSPECTION CERVICAL: WNL THORACIC: WNL LUMBAR: WNLMOTOR: 5/5 in all muscle groups.SENSORY: Normal sensory exam, bilateral lateral thigh decrease sensation, 4+/5with left knee flexion, left foot dorsiflexion.GAIT: Normal, but slowLeft knee reflex absentNEURO TESTS:NoneDATA REVIEWNo additional images reviewed today, patient did not bring her most recent MRIlumbar spine with her for review. per Report:Comparison: 09/20/2014.Procedure: Routine MRI lumbosacral spine obtained before and after theuncomplicated intravenous administration of 20 mL MultiHance. Multisequence,multiplanar imaging was obtained.Findings:L3-S1 laminectomies.??Resolution of previously described posterior fluidcollection.??Desiccati on and bulging of the L3-4 through L5-S1 intervertebraldiscs.??The alignment of the lumbosacral spine is normal.??Postoperativechang es are noted in the soft tissues.??There is no evidence of fluidcollection.??There is no fracture.??The conus medullaris terminates normally [id number].??Small Schmorl's nodes.??No fluid collection or epiduralprocess.??Minimal paraspinal enhancing soft tissue possibly related to epiduralfibrosis.At L1-2 there are mild facet degenerative changes.At L2-3 there is a circumferential disc bulge and facet degenerative changes.At L3-4 there is a circumferential disc bulge and facet degenerative changes.At L4-5 there is a circumferential disc bulge and facet degenerativechanges.??Sever e bilateral neural foraminal narrowing.At L5-S1 there is a circumferential disc bulge and facet degenerative changeswith mild bilateral neural foraminal narrowing.Impression:1. Postoperative changes as detailed above.??Minimal epidural fibrosis.2.??Mild degenerative changes with some residual neural foraminal narrowinginvolving the lower lumbosacral spine.ASSESSMENT/PLANIMPRES JAIMIE:(G89.4) Chronic pain syndrome (primary encounter diagnosis)(R20.0) Bilateral leg numbness(M54.12) Radiculopathy, cervical region(Z98.890) History of lumbar surgeryXiang Mahoney has a condition that requires further workup. For her lumbarspine - recommend she mail the CD with MRI imaging for review. Would also likefor her to obtain lumbar xrays. As fr her cervical spine - recommend she obtaincervical xrays and MRI to evaluate further. She will mail the imaging forreview. Will call patient with recommendations.1. Imaging: Cervical MRI Without Contrast and Cervical X-Ray and Lumbar X-Ray2. Follow up: Following aboveThe majority of the visit was spent counseling and/or coordinating care for thepatient.Total face to face time was 45 minutes.SIGNATURE: Annabelle Claire PA-C PATIENT NAME: Xiang MahoneyDATE: March 15, 2017 : 2:56 PM PAGER:Referring Provider: SELF [[id number]]Allergies As of Date: 03/15/2017 Noted Allergy ReactionAMOXICILLIN 03/15/2017 10 - AnaphylaxisCHERRY 03/15/2017 10 - AnaphylaxisDILAUDID (HYDROMORPHONE (BULK)) 03/15/2017 4 - HivesDURICEF (CEFADROXIL) 03/15/2017 4 - HivesIBUPROFEN 03/15/2017 4 - HivesNSAIDS (NON-STEROIDAL ANTI-INFLAM*03/15/2017 11 - VomitingPENICILLINS 03/15/2017 10 - AnaphylaxisPINK DYE 03/15/2017 4 - HivesSTRAWBERRY 03/15/2017 4 - HivesVICODIN (HYDROCODONE-ACETAMINOPHE*1 4 - HivesDate Reviewed: 03/15/2017Reviewed by: Cathy Nuñez Ma - Fully AssessedReason for Visit: New Patient [172]Primary Visit Diagnosis:Chronic pain syndrome [G89.4] Other Visit Diagnoses:Bilateral leg numbness [R20.0] Radiculopathy, cervical region [M54.12] History of lumbar surgery [Z98.890]Order(s):XR CERV OTHER 4V AP/LAT/FLX/EXT [[id number]] Order #: [id number] FUTURE XR LUMBAR MOTION 4V AP/LAT/ FLEX/EXT [[id number]] Order #: [id number] FUTURE MRI CERVICAL SPINE WO IVCON [[id number]] Order #: [id number] FUTUREPrescriptions as of 03/15/2017 Sig: CYCLOBENZAPRINE 5 MG TABLET Take 5 mg by mouth three time* DEXTROMETHORPHAN-GUAIFENESI N * Take 30-600 mg by mouth. DOXYCYCLINE HYCLATE 100 MG CA* Take 100 mg by mouth twice da* GABAPENTIN 300 MG CAPSULE Take 300 mg by mouth three ti* NORGESTIMATE 0.25 MG-ETHINYL * Take 1 tablet by mouth once d* OMEPRAZOLE 40 MG CAPSULE,JONAH* Take 40 mg by mouth once marta* ONDANSETRON 4 MG DISINTEGRATI* Take 4 mg by mouth every 8 ho*Problem List As Of Date: 03/15/2017(None)Follow-up and Disposition History RecordedEncounter Number: [id number] Status:Closed by ANNABELLE CLAIRE on 03/15/17 Normal [facility] DX-XR SPINE CERVICAL 4 OR 5 VWS IMPORTon 03-15-2017 DX-XR SPINE CERVICAL 4 OR 5 VWS IMPORT Images were obtained outside of [facility] [id number] Normal [facility] DX-XR SPINE CERVICAL 4 OR 5 VWS IMPORT Images were obtained outside of [facility] [id number] Normal [facility] DX-XR SPINE LUMBAR MIN 4 VWS IMPORTon 03-15-2017 DX-XR SPINE LUMBAR MIN 4 VWS IMPORT Images were obtained outside of [facility] [id number] Normal [facility] DX-XR SPINE LUMBAR MIN 4 VWS IMPORT Images were obtained outside of [facility] [id number] Normal [facility] PROGRESSon 03-15-2017 PROGRESS HNO ID: [id number] thor: Annabelle Grigsby) JulietacoSer: (none)Author Type: Physician AssistantType: Progress NotesFiled: 03/15/2017 3:14 PMNote Text:SPINE SURGERY OUTPATIENT CONSULTSERVICE DATE: 03/15/2017PCP: No PcpREFERRING PROVIDER:Dr Recinos - PCPConsult requested for an opinion regarding the evaluation and treatmentof lumbar spine. My final impression and recommendations will becommunicated back to the requesting physician by way of the shared medicalrecord or letter via [place] mail.Vaibhav Mahoney is a 26 year old female presenting with mother.CHIEF COMPLAINT: lower back pain and bilateral leg pain and numbnesHISTORY OF PRESENT ILLNESSPRECIPITATING EVENT: NoneDURATION OF SYMPTOMS: Greater Than 1 YearXiang Mahoney reports that in August 28 2014 she had L3-4-[address] Brewer for bilateral leg numbness, bilateral leg pain and lowerback pain and inability to walk. She reports that after surgery she didbetter. She was able to walk but had permanent nerve damage. She was leftwith right buttock and vaginal numbness and numbness from left knee down.About 7 days after the surgery, she had fluid collection and leakage andwas taken back for exploratory surgery. She reports that leakage continuedbut she was discharged anyway. On 09/27/14 she had emergency surgery withDr Garcia, for CSF leak.She reports that she has been continuing for ongoing lower back pain, paindown the backs of both legs to the ankles and on/off numbness in bothlegs, R>L. She reports that her pain is so bad she is unable to doanything at home or even take care of her children. Her parents help herwith everything.She had tried to do a SCS but the insurance denied it. She is here to seewhat her options may be.More recently in the last few moths she has tosha having neck pain, pain inbetween her shoulder-blades and pain down the left arm to the 5th finger.She feels like her balance is worse, she has tosha having falls anddexterity problems.Throughout the years, she has been on opioids, Gabapentin. She has doneboth water and land therapy. She has not done any injections due to priorhistory of CSF leak.She does report of on/of urinary incontinence, but not complete. Just someleakage.PAIN EVALUATION 03/15/2017 Pain Score: 6 Pain Location: Back-Lower Description: Sharp Duration Amount of Time: 3 Duration Units: Years Frequency: Continuous Intervention: Relaxation;Cold;Heat Patient has had p/tPain Radiation: down the right and left thigh, below the right and leftknee and to the right and left foot/feet, from the left shoulder(s), leftelbow(s), left wrist(s) and left finger(s)Aggravating Factors: any activityAlleviating Factors: NonePain Ratio: Pain in the back is greater than in the leg, Pain in the neckand arm are equalDERMATOMAL DISTRIBUTION:unknownAMBULAT ORY STATUS: Impaired Community DistancesFUNCTIONAL STATUS: Walk indoors, such as around the house (1.75 METs)Do light work around the house, such as dusting or washing dishes (2.70METs)Take care of self, that is eating, dressing, bathing, using the toilet(2.75 METs)PREVIOUS CONSERVATIVE TREATMENTS:OpioidsPhysical Therapy: Date(s) last yearMembrane StabilizersPREVIOUS SPINAL SURGERY:SURGERY #1: Lumbar laminectomy 08/28/14SURGERY #2: Lumbar re-exploration 09/04/14SURGERY #3: Lumbar exploration and CSF repair 09/27/14PED RED FLAGSNoNoYesNoYesYesNoYesYe sNoNo No-Significant Injury to SpineNo-Use of Steroids for Prolonged DurationYES-Loss of Bowel/Bladder Control, Genital/Anal NumbnessNo-Recent Use of Intravenous (IV) DrugsYES-Difficulty Keeping Balance when WalkingNo-Progressive Weakness in Arms/LegsNo-History of Any Type of CancerNo-Unable to Find Position of ComfortNo-Pain at Night that Disturbs SleepNo-Recent Elevated Temp with Unknown CauseNo-Diagnosed with OsteoporosisNo-Unintentiona l Weight Loss or Gain*PED (Patient Entered Data) osteoporosis flag will display for females 55years or older and males 75 years or older.There is no problem list on file for this patient.Past medical history on file.FibromyalgiaOAGERDMigr ainesAsthmaPast surgical history on file.Lumbar surgery [id number] x3No family history on file.Social History Marital status: Unknown Spouse name: Years of education: Number of children:Social History Main Topics Smoking status: Current Every Day Smoker Packs/day: 0.00 Years: 0.00 Alcohol use: NoALLERGIESAllergen Reactions- Amoxicillin Anaphylaxis- Calderón Anaphylaxis- Dilaudid [Hydromorp* Hives- Duricef [Cefadroxil] Hives- Ibuprofen Hives- Nsaids (Non-Steroid* Vomiting- Penicillins Anaphylaxis- [place] Dye Hives- [place] Hives- Vicodin [Hydrocodon* HivesMEDICATIONS:cyclobenza heidy (FLEXERIL) 5 mg tablet Take 5 mg by mouth three timesdaily as needed.GUAIFENESIN/DEXTROME THORPHAN (DEXTROMETHORPHAN-GUAIFENES IN ORAL) Jden00-628 mg by mouth.doxycycline hyclate (VIBRAMYCIN) 100 mg capsule Take 100 mg by mouth twicedaily.gabapentin (NEURONTIN) 300 mg capsule Take 300 mg by mouth three timesdaily.norgestimate 0.25 mg-ethinyl estradiol 35 mcg (MONONESSA) 0.25-35 mg-mcgper tablet Take 1 tablet by mouth once daily.Omeprazole 40 mg capsule Take 40 mg by mouth once daily.ondansetron orally disintegrating (ZOFRAN ODT) 4 mg disintegrating tabletTake 4 mg by mouth every 8 hours as needed.REVIEW OF SYSTEMS:GENERAL: No weight loss or malaiseMUSCULOSKELETAL: Negative for joint pain, swelling or muscle painNEURO: No history of headaches, syncope, paralysis, seizures or tremorsOBJECTIVE:PHYSICAL EXAMBP 124/72 Pulse 72 Resp 18 Ht 182.9 cm (6') Wt 103 kg(227 lb) BMI 30.79 kg/p3BUCGDNZ APPEARANCE: Well nourished, well developed, and no apparentdistress.NEURO PSYCH: Patient oriented to person, place, and time. Mood pleasant.Benign affect.MUSCULOSKELETAL VISUAL INSPECTION CERVICAL: WNL THORACIC: WNL LUMBAR: WNLMOTOR: 5/5 in all muscle groups.SENSORY: Normal sensory exam, bilateral lateral thigh decrease sensation,4+/5 with left knee flexion, left foot dorsiflexion.GAIT: Normal, but slowLeft knee reflex absentNEURO TESTS:NoneDATA REVIEWNo additional images reviewed today, patient did not bring her most recentMRI lumbar spine with her for review. per Report:Comparison: 09/20/2014.Procedure: Routine MRI lumbosacral spine obtained before and after theuncomplicated intravenous administration of 20 mL MultiHance.Multisequence, multiplanar imaging was obtained.Findings:L3-S1 laminectomies.??Resolution of previously described posterior fluidcollection.??Desiccati on and bulging of the L3-4 through L5-P2faskqottxksnjc discs.??The alignment of the lumbosacral spine isnormal.??Postoperative changes are noted in the soft tissues.??There is noevidence of fluidcollection.??There is no fracture.??The conus medullaris terminatesnormally at T12-L1.??Small Schmorl's nodes.??No fluid collection orepidural process.??Minimal paraspinal enhancing soft tissue possiblyrelated to epidural fibrosis.At L1-2 there are mild facet degenerative changes.At L2-3 there is a circumferential disc bulge and facet degenerativechanges.At L3-4 there is a circumferential disc bulge and facet degenerativechanges.At L4-5 there is a circumferential disc bulge and facet degenerativechanges.??Sever e bilateral neural foraminal narrowing.At L5-S1 there is a circumferential disc bulge and facet degenerativechanges with mild bilateral neural foraminal narrowing.Impression:1. Postoperative changes as detailed above.??Minimal epidural fibrosis.2.??Mild degenerative changes with some residual neural foraminalnarrowing involving the lower lumbosacral spine.ASSESSMENT/PLANIMPRES JAIMIE:(G89.4) Chronic pain syndrome (primary encounter diagnosis)(R20.0) Bilateral leg numbness(M54.12) Radiculopathy, cervical region(Z98.890) History of lumbar surgeryXiang Mahoney has a condition that requires further workup. For herlumbar spine - recommend she mail the CD with MRI imaging for review.Would also like for her to obtain lumbar xrays. As fr her cervical spine -recommend she obtain cervical xrays and MRI to evaluate further. She willmail the imaging for review. Will call patient with recommendations.1. Imaging: Cervical MRI Without Contrast and Cervical X-Ray and LumbarX-Ray2. Follow up: Following aboveThe majority of the visit was spent counseling and/or coordinating carefor the patient.Total face to face time was 45 minutes.SIGNATURE: Annabelle Claire PA-C PATIENT NAME: Xiang MahoneyDATE: March 15, 2017 : 2:56 PM PAGER: Normal [facility] MR-MR LUMBAR SPINE W WO CONT IMPORTon 12-05-2016 MR-MR LUMBAR SPINE W WO CONT IMPORT Images were obtained outside of [facility] [id number] Normal [facility] MR-MR LUMBAR SPINE W WO CONT IMPORT Images were obtained outside of [facility] [id number] Normal [facility] Vital Signs Date Time Vital Sign Value Performing Clinician Facility 07-24-2023 14:18-0500 Body height 180.3 cm [employer] Work Phone: [facility] 07-24-2023 14:18-0500 Body mass index (BMI) [Ratio] 37.25 kg/m2 [employer] Work Phone: [facility] 07-24-2023 14:18-0500 Body temperature 97.3 [degF] [employer] Work Phone: [facility] 07-24-2023 14:18-0500 Body weight 121.16 kg King Furlong DO Work Phone: [facility] 07-24-2023 14:18-0500 Diastolic blood pressure 70 mm[Hg] King Furlong DO Work Phone: [facility] 07-24-2023 14:18-0500 Heart rate 86 /min King Furlong DO Work Phone: [facility] 07-24-2023 14:18-0500 SaO2% (BldA) [Mass fraction] 96 % King Furlong DO Work Phone: [facility] 07-24-2023 14:18-0500 Systolic blood pressure 110 mm[Hg] King Furlong DO Work Phone: [facility] 07-03-2023 13:15-0500 Body height 180.3 cm King Furlong DO Work Phone: [facility] 07-03-2023 13:15-0500 Body mass index (BMI) [Ratio] 35.59 kg/m2 King Furlong DO Work Phone: [facility] 07-03-2023 13:15-0500 Body temperature 98.2 [degF] King Furlong DO Work Phone: [facility] 07-03-2023 13:15-0500 Body weight 115.76 kg King Furlong DO Work Phone: [facility] 07-03-2023 13:15-0500 Diastolic blood pressure 60 mm[Hg] King Furlong DO Work Phone: [facility] 07-03-2023 13:15-0500 Heart rate 82 /min King Furlong DO Work Phone: [facility] 07-03-2023 13:15-0500 SaO2% (BldA) [Mass fraction] 94 % King Furlong DO Work Phone: [facility] [employer] [facility] 07-03-2023 13:15-0500 Systolic blood pressure 100 mm[Hg] King Furlong DO Work Phone: [facility] 06-12-2023 13:05-0500 Body height 180.3 cm Abby Berg MD Work Phone: [facility] 06-12-2023 13:05-0500 Body mass index (BMI) [Ratio] 37.22 kg/m2 Abby Berg MD Work Phone: [facility] [employer] [facility] 06-12-2023 13:05-0500 Body weight 121.06 kg Abby Berg MD Work Phone: [facility] 06-12-2023 13:05-0500 Diastolic blood pressure 74 mm[Hg] Abby Berg MD Work Phone: [facility] 06-12-2023 13:05-0500 Heart rate 90 /min Abby Berg MD Work Phone: [facility] 06-12-2023 13:05-0500 SaO2% (BldA) [Mass fraction] 97 % Abby Berg MD Work Phone: [facility] 06-12-2023 13:05-0500 Systolic blood pressure 117 mm[Hg] bAby Berg MD Work Phone: [facility] 06-08-2023 11:17-0500 Body height 180.3 cm King Furlong DO Work Phone: [facility] 06-08-2023 11:17-0500 Body mass index (BMI) [Ratio] 37.32 kg/m2 King Furlong DO Work Phone: [facility] 06-08-2023 11:17-0500 Body temperature 98.01 [degF] King Furlong DO Work Phone: [facility] 06-08-2023 11:17-0500 Body weight 121.38 kg King Furlong DO Work Phone: [facility] 06-08-2023 11:17-0500 Diastolic blood pressure 82 mm[Hg] King Furlong DO Work Phone: [facility] 06-08-2023 11:17-0500 Heart rate 91 /min King Furlong DO Work Phone: [employer] 06-08-2023 11:17-0500 SaO2% (BldA) [Mass fraction] 97 % King Furlong DO Work Phone: [employer] 06-08-2023 11:17-0500 Systolic blood pressure 130 mm[Hg] King Furlong DO Work Phone: [employer] 06-06-2023 14:54-0500 SaO2% (BldA) [Mass fraction] 100 % [facility]U [facility] Comment on above: Performed By: #### VBG #### [facility] ([id number]) [address] [place] [address] 06-06-2023 11:30-0500 Body height 177.16 cm [employer] Other [employer] Other 06-06-2023 11:30-0500 Body mass index (BMI) [Ratio] 38.8 kg/m2 [employer] Other [employer] Other 06-06-2023 11:30-0500 Body weight 121.79 kg [employer] Other [employer] Other 06-06-2023 11:30-0500 Diastolic blood pressure 75 mm[Hg] [employer] Other [employer] Other 06-06-2023 11:30-0500 Respiratory rate 82 /min Rainer Barrera Other [employer] Other 06-06-2023 11:30-0500 SaO2% (BldA) [Mass fraction] 98 % Rainer Barrera Other [employer] Other 06-06-2023 11:30-0500 Systolic blood pressure 106 mm[Hg] Rainer Barrera Other [employer] Other 05-16-2023 15:52-0500 Body height 182.2 cm Fiorella Murnen [employer] Work Phone: [employer] 05-16-2023 15:52-0500 Diastolic blood pressure 58 mm[Hg] Fiorella Murnen [employer] Work Phone: [employer] 05-16-2023 15:52-0500 Heart rate 86 /min Fiorella Murnen [employer] Work Phone: [employer] 05-16-2023 15:52-0500 Systolic blood pressure 92 mm[Hg] Fiorella Murnen [employer] Work Phone: [employer] 03-27-2023 11:15-0500 Body height 177.16 cm Rainer Barrera Other [employer] Other 03-27-2023 11:15-0500 Body mass index (BMI) [Ratio] 39.19 kg/m2 Rainer aBrrera Other [employer] Other 03-27-2023 11:15-0500 Body weight 123.02 kg Rainer Barrera Other [employer] Other 03-27-2023 11:15-0500 Diastolic blood pressure 75 mm[Hg] Rainermargaret Barrera Other [employer] Other 03-27-2023 11:15-0500 Respiratory rate 99 /min Rainer Barrera Other [employer] Other 03-27-2023 11:15-0500 SaO2% (BldA) [Mass fraction] 98 % Rainer Barrera Other [employer] Other 03-27-2023 11:15-0500 Systolic blood pressure 107 mm[Hg] Rainer Barrera Other [employer] Other 11-09-2022 13:30-0400 Body height 182.25 cm [employer] Other [employer] Other 11-09-2022 13:30-0400 Body mass index (BMI) [Ratio] 36.87 kg/m2 [employer] Other [employer] Other 11-09-2022 13:30-0400 Body weight 122.47 kg [email or web address] Other [employer] Other 11-09-2022 13:30-0400 Diastolic blood pressure 76 mm[Hg] [email or web address] Other [employer] Other 11-09-2022 13:30-0400 Systolic blood pressure 112 mm[Hg] [email or web address] Other [employer] Other 10-18-2022 18:15-0400 Body height 182.25 cm Nicole Zhang Other [employer] Other 10-18-2022 18:15-0400 Body mass index (BMI) [Ratio] 36.87 kg/m2 Nicole Zhang Other [employer] Other 10-18-2022 18:15-0400 Body temperature 98.8 [degF] Nicole Zhang Other [employer] Other 10-18-2022 18:15-0400 Body weight 122.47 kg Nicole Zhang Other [employer] Other 10-18-2022 18:15-0400 Respiratory rate 18 /min Nicole Zhang Other [employer] Other 10-18-2022 18:15-0400 SaO2% (BldA) [Mass fraction] 96 % Nicole Zhang Other [employer] Other 09-28-2022 10:10-0400 Body height 182.25 cm Pratima Hill Other [employer] Other 09-28-2022 10:10-0400 Body mass index (BMI) [Ratio] 36.73 kg/m2 Pratima Hill Other [employer] Other 09-28-2022 10:10-0400 Body weight 122.02 kg Pratima Hill Other [employer] Other 09-28-2022 10:10-0400 Diastolic blood pressure 80 mm[Hg] [employer] Other [employer] Other 09-28-2022 10:10-0400 Systolic blood pressure 120 mm[Hg] Pratima Hill Other [employer] Other 09-08-2022 17:11-0400 Body height 180.34 cm DILIA Mckoy Work Phone: [facility] 09-08-2022 17:11-0400 Body temperature 98.2 [degF] DILIA Mckoy Work Phone: [facility] 09-08-2022 17:11-0400 Body weight 125 kg DILIA Mckoy Work Phone: [facility] 09-08-2022 17:11-0400 Diastolic blood pressure 74 mm[Hg] DILIA Mckoy Work Phone: [facility] 09-08-2022 17:11-0400 Heart rate 90 /min TECHNICAL SMESheridan Mckoy Work Phone: [facility] 09-08-2022 17:11-0400 Respiratory rate 18 /min DILIA Mckoy Work Phone: [facility] 09-08-2022 17:11-0400 SaO2% (BldA) [Mass fraction] 98 % DILIA Mckoy Work Phone: [facility] 09-08-2022 17:11-0400 Systolic blood pressure 128 mm[Hg] DILIA Mckoy Work Phone: [facility] 03-14-2022 13:43-0400 Diastolic blood pressure 53 mm[Hg] Karen Spaulding MD [facility] 03-14-2022 13:43-0400 Heart rate 104 /min Karen Spaulding MD Work Phone: [facility] 03-14-2022 13:43-0400 Respiratory rate 24 /min Karen Spaulding MD Work Phone: [facility] 03-14-2022 13:43-0400 SaO2% (BldA) [Mass fraction] 93 % Karen Spaulding MD Work Phone: [facility] 03-14-2022 13:43-0400 Systolic blood pressure 106 mm[Hg] Karen [facility]aulding MD [facility] 03-14-2022 09:26-0400 Body height 180.3 cm Karen Spaulding MD Work Phone: [employer] 03-14-2022 09:26-0400 Body mass index (BMI) [Ratio] 34.87 kg/m2 Karen Spaulding MD Work Phone: [employer] 03-14-2022 09:26-0400 Body temperature 98.8 [degF] Karen Spaulding MD Work Phone: [employer] 03-14-2022 09:26-0400 Body weight 113.4 kg Karen Spaulding MD Work Phone: [employer] 03-01-2022 12:15-0400 Body height 182.25 cm Lola Trevino Other [employer] Other 01-18-2022 11:15-0400 Body height 182.25 cm Dereck Dempsey Other [employer] Other 01-18-2022 11:15-0400 Body mass index (BMI) [Ratio] 35.72 kg/m2 Dereck Dempsey Other [employer] Other 01-18-2022 11:15-0400 Body weight 118.66 kg Dereck Dempsey Other [employer] Other 01-18-2022 11:15-0400 Diastolic blood pressure 68 mm[Hg] Dereck Dempsey Other [employer] Other 01-18-2022 11:15-0400 Respiratory rate 18 /min Dereck Dempsey Other [employer] Other 01-18-2022 11:15-0400 SaO2% (BldA) [Mass fraction] 99 % Dereck Dempsey Other [employer] Other 01-18-2022 11:15-0400 Systolic blood pressure 98 mm[Hg] Dereck Dempsey Other [employer] Other 12-06-2021 14:00-0400 Body height 182.25 cm Dereck Dempsey Other [employer] Other 12-06-2021 14:00-0400 Body mass index (BMI) [Ratio] 35.46 kg/m2 Dereck Kidddiff Other [employer] Other 12-06-2021 14:00-0400 Body weight 117.8 kg Dereck Kidddiff Other [employer] Other 12-06-2021 14:00-0400 Diastolic blood pressure 79 mm[Hg] Dereck Dempsey Other [employer] Other 12-06-2021 14:00-0400 Respiratory rate 18 /min Dereck Dempsey Other [employer] Other 12-06-2021 14:00-0400 SaO2% (BldA) [Mass fraction] 97 % Dereck Kidddiff Other [employer] Other 12-06-2021 14:00-0400 Systolic blood pressure 106 mm[Hg] Dereck Kidddiff Other [employer] Other 09-02-2021 11:45-0400 Body height 182.25 cm Saroj Nguyen Other [employer] Other 09-02-2021 11:45-0400 Body mass index (BMI) [Ratio] 33.73 kg/m2 Saroj Nguyen Other [employer] Other 09-02-2021 11:45-0400 Body weight 112.04 kg Saroj Elskeiko Other [employer] Other 07-19-2021 11:00-0500 Body height 182.25 cm Te Olexa Other [employer] Other 07-19-2021 11:00-0500 Body mass index (BMI) [Ratio] 33.73 kg/m2 Te Olexa Other [employer] Other 07-19-2021 11:00-0500 Body weight 112.04 kg Te Olexa Other [employer] Other 05-04-2021 12:00-0500 Body height 182.25 cm Saroj Nguyen Other [employer] Other 05-04-2021 12:00-0500 Body mass index (BMI) [Ratio] 36.87 kg/m2 Saroj Nguyen Other [employer] Other 05-04-2021 12:00-0500 Body weight 122.47 kg Saroj Nguyen Other [employer] Other 04-13-2021 15:00-0500 Body height 182.25 cm Saroj Nguyen Other [employer] Other 04-13-2021 15:00-0500 Body mass index (BMI) [Ratio] 36.87 kg/m2 Saroj Nguyen Other [employer] Other 04-13-2021 15:00-0500 Body weight 122.47 kg Saroj Nguyen Other [employer] Other 04-13-2021 15:00-0500 Diastolic blood pressure 75 mm[Hg] Saroj Nguyen Other [employer] Other 04-13-2021 15:00-0500 Systolic blood pressure 128 mm[Hg] Saroj Nguyen Other [employer] Other Encounters Encounter Date Encounter Type Care Provider Facility Start: 12-30-2023 End: 01-01-2024 Emergency department patient visit NATALI PACE [facility] Start: 12-30-2023 End: 12-31-2023 ambulatory [facility] Start: 12-27-2023 End: 12-27-2023 ambulatory NATALI ALEXANDRA Not Available Start: 12-18-2023 End: 12-18-2023 ambulatory HAYDEN KIRKPATRICK Not Available Start: 12-06-2023 End: 12-06-2023 ambulatory DAVE [facility] Start: 12-03-2023 End: 12-03-2023 ambulatory HAYDEN KIRKPATRICK Not Available Start: 11-26-2023 End: 11-26-2023 ambulatory HAYDEN KIRKPATRICK Not Available Start: 11-13-2023 End: 11-13-2023 ambulatory JESU LEWIS [facility] Start: 11-09-2023 ambulatory CAROL URBINA [facility] Start: 10-16-2023 End: 10-16-2023 Emergency department patient visit REYN[facility]DS [facility] Start: 10-10-2023 End: 10-10-2023 Evaluation and management of inpatient JOAQUIN E MURRAY [facility] Start: 10-09-2023 End: 10-10-2023 Evaluation and management of inpatient S. DAVID JAMES [facility] Start: 10-09-2023 End: 10-09-2023 Evaluation and management of inpatient S. BASJACEK WIGGINSNI [facility] Start: 10-01-2023 End: 10-01-2023 Evaluation and management of inpatient KING [facility] Start: 09-11-2023 End: 09-11-2023 ambulatory JESU NEVAREZ Not Available Start: 09-06-2023 End: 09-06-2023 ambulatory [facility] Start: 09-05-2023 End: 09-05-2023 ambulatory DAVE MARIN [facility] Start: 08-23-2023 Orders Only Nicole Beal CMA [facility] Comment on above: Diarrhea, unspecifie d type (Primary Dx) Start: 08-20-2023 End: 08-24-2023 Emergency department patient visit LATOSHA NICHOLAS [facility] Start: 08-20-2023 End: 08-24-2023 Evaluation and management of inpatient KING [facility] Start: 08-20-2023 Refill Kiara Jese [facility] Start: 08-17-2023 End: 08-17-2023 ambulatory [facility] Start: 08-15-2023 End: 08-15-2023 ambulatory [facility] Start: 08-08-2023 Telephone encounter Tiffanie Welsh pratibhacandi [employer] Work Phone: [facility] Start: 08-08-2023 End: 08-08-2023 ambulatory [facility] Start: 08-08-2023 End: 08-08-2023 Office outpatient new 60 minutes Tiffanie Molina [employer] Work Phone: [facility] Comment on above: Nausea and vomiting, unspecified vomiting type (Primary Dx); Generalized abdominal pain; Abnormal CT of the abdomen; Colitis; Lower abdominal pain; Hx of iron deficiency; Dark emesis; Chronic GERD; Duodenitis; Diarrhea, unspecified type Start: 07-31-2023 Orders Only Haily Maynard [employer]CHNICAL [employer]ME[employer] Work Phone: [facility] Comment on above: Bipolar affective di sorder, remission status unspecified ([facility]) (Primary Dx); Major depressive disorder, recurrent severe without psychotic features ([facility]) Start: 07-24-2023 End: 07-24-[address] [facility] Start: 07-24-2023 End: 07-24-2023 Office outpatient visit 25 minutes King Robles DO Work Phone: [facility] Comment on above: Type 2 diabetes stefan itus with diabetic polyneuropathy, with long-term current use of insulin ([facility]) (Primary Dx); Hypokalemia; Hypomagnesemia; Elevated LFTs; Colitis Start: 07-24-2023 End: 07-24-2023 ambulatory [facility] Start: 07-23-2023 End: 07-23-2023 ambulatory JESU NEVAREZ Not Available Start: 07-09-2023 Orders Only King parra DO Work Phone: [facility] Comment on above: Surgical Or Dental C learance Start: 07-06-2023 Refill Aniket Richmond APRN-[employer] Work Phone: [facility] Start: 07-03-2023 End: 07-03-2023 Office outpatient visit 25 minutes King Robles DO Work Phone: [facility] Comment on above: Major depressive dis order, recurrent severe without psychotic features ([facility]) (Primary Dx); Bipolar I disorder, single manic episode, severe, with psychosis ([facility]); Colitis; Elevated LFTs; Degenerative lumbar spinal stenosis; Type 2 diabetes mellitus with diabetic polyneuropathy, with long-term current use of insulin ([facility]); Accelerated junctional rhythm Start: 07-03-2023 End: 07-03-2023 ambulatory [facility] Start: 06-27-2023 End: 07-01-2023 Emergency department patient visit OLAYINKA R WALKER [facility] Start: 06-27-2023 End: 06-30-2023 ambulatory KING SAEZAIDA [facility] Start: 06-26-2023 End: 06-27-2023 Emergency department patient visit LATOSHA NICHOLAS [facility] Start: 06-26-2023 End: 06-26-2023 Emergency department patient visit KING SAEZAIDA [facility] Start: 06-25-2023 Telephone encounter Bobbi chowdhury [facility] Start: 06-20-2023 Orders Only Fiorella Sumner [employer] Work Phone: [facility] Comment on above: Accelerated junction al rhythm (Primary Dx); Syncope, unspecified syncope type Start: 06-19-2023 Orders Only King [facility] Start: 06-13-2023 Telephone encounter Abby marlow MD Work Phone: [facility] - Sleep Disorders Comment on above: Sleep Lab (CPAP) change to video visi t ; reschd appt Start: 06-12-2023 End: 06-12-2023 Office outpatient visit 25 minutes Abby Berg MD Work Phone: [facility] Comment on above: Obstructive sleep ap lopez (Primary Dx); Intolerance of continuous positive airway pressure (CPAP) ventilation; Difficulty using continuous positive airway pressure (CPAP) full face mask; History of claustrophobia; Hot flashes; Daytime sleepiness Start: 06-12-2023 End: 06-12-2023 ambulatory [facility] Start: 06-08-2023 End: 06-08-2023 Office outpatient visit 15 minutes King Alexia Margaret DO Work Phone: [facility] Comment on above: Type 2 diabetes stefan itus with diabetic polyneuropathy, with long-term current use of insulin ([facility]) (Primary Dx); Hyperglycemia Start: 06-08-2023 End: 06-08-2023 ambulatory [facility] Start: 06-07-2023 End: 06-07-2023 ambulatory [facility] Start: 06-07-2023 End: 06-07-2023 ambulatory [facility] Start: 06-06-2023 End: 06-06-2023 Emergency department patient visit [facility] Start: 06-06-2023 End: 06-06-2023 ambulatory Rainer Barrera [employer] Other Start: 06-06-2023 Follow-up encounter Rainer Larsen [facility] Start: 05-31-2023 End: 05-31-2023 Emergency department patient visit [facility] Start: 05-23-2023 End: 05-23-2023 ambulatory Rainer Barrera Other [employer] Other Start: 05-23-2023 Telephone encounter Rainer Larsen [facility] Start: 05-22-2023 End: 05-22-2023 ambulatory [facility] Start: 05-16-2023 End: 05-16-2023 Office outpatient visit 25 minutes Fiorella Sumner [employer] [facility] Comment on above: PFO (patent foramen ovale) (Primary Dx); Mixed hyperlipidemia; Cigarette smoker; Palpitations; Lightheadedness; Syncope, unspecified syncope type Start: 05-16-2023 End: 05-16-2023 ambulatory [facility] Start: 05-16-2023 End: 05-16-2023 ambulatory JESU NEVAREZ Not Available Start: 05-07-2023 End: 05-07-2023 ambulatory [facility] Start: 05-07-2023 Encounter for other preprocedural examination JESU NEVAREZ [facility] Start: 05-07-2023 End: 05-07-2023 ambulatory JESU NEVAREZ Not Available Start: 03-27-2023 End: 03-27-2023 ambulatory Rainer Barrera Other [employer] Other Start: 03-27-2023 Follow-up encounter Rainer babb [facility] Start: 01-11-2023 End: 01-11-2023 Patient encounter procedure TECHNICAL SME Nawaf Ean Work Phone: [facility] Work Phone: Start: 01-11-2023 End: 01-11-2023 ambulatory TECHNICAL SMESheridan Mckoy Work Phone: [facility] Work Phone: Start: 12-27-2022 Registered Recurring DILIA Venu inmo Mckoy Work Phone: [facility]-Weight Management Work Phone: Start: 12-27-2022 End: 12-27-2022 ambulatory Rainer Barrera Other [employer] Other Start: 12-27-2022 Telephone encounter Rainer babb [facility] Start: 11-09-2022 End: 11-09-2022 Patient encounter procedure TECHNICAL SME Nawaf Mckoy Work Phone: [facility]-XRay [facility] Work Phone: Start: 11-09-2022 End: 11-09-2022 ambulatory TECHNICAL SME Nawaf Mckoy Work Phone: [facility] Work Phone: Start: 11-09-2022 Office outpatient vi sit 25 minutes Pratima Hill [facility] Neurosurgery Start: 11-02-2022 End: 11-02-2022 Patient encounter procedure DILIA Mckoy Work Phone: [facility] Work Phone: Start: 11-02-2022 End: 11-02-2022 ambulatory TECHNICAL SME Nawaf Mckoy Work Phone: [facility] Work Phone: Start: 10-30-2022 End: 10-30-2022 ambulatory Dereck Dempsey Other [employer] Other Start: 10-30-2022 Telephone encounter Dereckleah Kidddiff [facility] Start: 10-18-2022 End: 10-18-2022 ambulatory iNcole Zhang Other [employer] Other Start: 10-18-2022 Office outpatient vi sit 15 minutes Nicole Zhang [facility] Start: 10-17-2022 End: 10-17-2022 ambulatory Jone Greenfield Other [employer] Other Start: 10-17-2022 Telephone encounter Jone Greenfield [facility] Start: 10-12-2022 End: 10-12-2022 Patient encounter procedure TECHNICAL SME Nawaf Mckoy Work Phone: [facility] [place] Work Phone: Start: 09-28-2022 Office outpatient vi sit 25 minutes Pratima Hill [facility] Neuro[facility] Start: 09-28-2022 End: 09-28-2022 ambulatory TECHNICAL SME Nawaf Mckoy Work Phone: [facility] Work Phone: Start: 09-28-2022 End: 09-28-2022 Patient encounter procedure TECHNICAL SME Nawaf Mckoy Work Phone: [facility] [place] Work Phone: Start: 09-08-2022 End: 09-08-2022 Emergency department patient visit TECHNICAL SME Nawaf Culveresme Work Phone: [facility]-Emergency Room Work Phone: Start: 04-17-2022 End: 04-18-2022 ambulatory MD Constantino HOWELL Facility: [place] Start: 04-17-2022 End: 04-17-2022 Patient encounter procedure Constantino HOWELL [facility] [place] Start: 03-23-2022 End: 03-23-2022 Emergency department patient visit PCP NO [facility] Start: 03-22-2022 End: 03-22-2022 ambulatory Dereck Dempsey Other [employer] Other Start: 03-22-2022 Telephone encounter Dereck smith [facility] Start: 03-15-2022 End: 03-15-2022 ambulatory PCP NO [facility] Start: 03-14-2022 End: 03-14-2022 Emergency department patient visit KAREN SPAULDING [facility] Start: 03-14-2022 End: 03-14-2022 Emergency department patient visit Karen Spaulding MD Work Phone: [facility] ED Comment on above: Syncope and collapse (Primary Dx); Acute nonintractable headache, unspecified headache type; Right groin pain; Nausea and vomiting, unspecified vomiting type; Acute cystitis without hematuria Start: 03-13-2022 ambulatory [facility] Start: 03-05-2022 End: 03-05-2022 Emergency department patient visit CARLITA RECINOS [facility] Start: 03-01-2022 End: 03-01-2022 ambulatory Lola Trevino Other [employer] Other Start: 03-01-2022 IBT FOR OBESITY GROU P 2-10 30M Lola Trevino [facility] Start: 02-03-2022 End: 02-03-2022 ambulatory Dereck Dempsey Other [employer] Other Start: 02-03-2022 Telephone encounter Dereck Roselyn Den brittele [facility] Start: 01-19-2022 End: 01-19-2022 ambulatory Dereck Weeksff Other [employer] Other Start: 01-19-2022 Telephone encounter Dereck Roselyn Den smith [facility] Start: 01-18-2022 End: 01-18-2022 ambulatory Dereck Dempsey Other [facility] [employer] Other Start: 01-18-2022 Follow-up encounter Dereck Roselyn Den sarah [facility] Start: 01-14-2022 End: 01-14-[address] JENSEN ARANDA Facility: Start: 12-06-2021 End: 12-06-2021 ambulatory Dereck Dempsey Other [facility] [employer] Other Start: 12-06-2021 Nutrition therapy Dereck babb [facility] Start: 10-11-2021 ambulatory MD Constantino HOWELL [facility] ity: [facility] Start: 10-11-2021 End: 10-12-2021 ambulatory MD Constantino HOWELL Facility:[facility] Start: 10-11-2021 End: 10-11-2021 Patient encounter procedure Constantino HOWELL [facility] Start: 09-02-2021 End: 09-02-2021 ambulatory Saroj Nguyen Other [facility] [employer] Other Start: 09-02-2021 Office outpatient vi sit 15 minutes Saroj Nguyen [facility] Neurosurgery Start: 08-02-2021 End: 08-02-2021 ambulatory Dereck Dempsey Other [facility] [employer] Other Start: 08-02-2021 Telephone encounter Dereck Dempsey Den sarah [facility] Start: 07-19-2021 End: 07-19-2021 ambulatory Te Shelton Other [employer] Other Start: 07-19-2021 Office outpatient vi sit 25 minutes Te Shelton [facility] Start: 05-06-2021 End: 05-07-[address] CONSTANTINO HOWELL Facility:[facility] Start: 05-04-2021 End: 05-04-2021 ambulatory Saroj Nguyen Other [employer] Other Start: 05-04-2021 Office outpatient vi sit 15 minutes Saroj Nguyen [facility] Start: 04-27-2021 End: 04-27-2021 ambulatory Saroj Nguyen Other [employer] Other Start: 04-27-2021 Telephone encounter Saroj Crenshaw [facility] Neurosurgery Start: 04-20-2021 End: 04-21-2021 ambulatory MD Constantino HOWELL Facility:[facility] Start: 04-19-2021 End: 04-20-[address] CONSTANTINO HOWELL Facility:[facility] Start: 04-13-2021 End: 04-13-2021 ambulatory Saroj Nguyen Other [employer] Other Start: 04-13-2021 Office outpatient vi sit 15 minutes Saroj Nguyen [facility] Neurosurgery Start: 03-03-2021 ambulatory NAWAF MCKOY Facility:[facility] Start: 07-11-2017 Ambulatory MINNIE WARNER [facility] Start: 07-11-2017 End: 07-23-2017 Ambulatory MINNIE WARNER [facility] Start: 06-25-2017 Ambulatory MINNIE WARNER [facility] Start: 06-25-2017 Ambulatory MINNIE WARNER [facility] Start: 05-16-2017 End: 05-17-2017 Ambulatory DOUGLAS ([place]) [facility] Start: 03-15-2017 End: 03-15-2017 Ambulatory ANNABELLE (PA) [facility] Procedures Date Procedure Procedure Detail Performing Clinician Start: 11-13-2023 Follow-up visit Follow-up JESU LEWIS Start: 07-24-2023 Adult depression screening assessment King SaezAnyMeeting DO Work Phone: Start: 07-03-2023 Adult depression screening assessment King SaezAnyMeeting DO Work Phone: Start: 06-08-2023 Adult depression screening assessment King SaezAnyMeeting DO Work Phone: Start: 05-16-2023 Follow-up visit Follow-up FIORELLA SUMNER Start: 04-02-2023 Microalbumin [Mass/volume] in Urine by Test strip King SaezCoveroo Work Phone: Start: 02-23-2023 Adult depression screening assessment Fiorella Sumner [employer] Work Phone: Start: 01-11-2023 Ultrasound elastogra phy of liver TECHNICAL SMESheridan Mckoy Work Phone: Start: 11-09-2022 Plain X-ray of right hip DILIA Mckoy Work Phone: Start: 11-02-2022 Dual energy X-ray absorptiometry DILIA Mckoy Work Phone: Start: 10-12-2022 MRI of lumbar spine with contrast DILIA Mckoy Work Phone: Start: 09-28-2022 X-ray of lumbar spin e, six views including bending views DILIA Mckoy Work Phone: Start: 09-08-2022 CT of lumbar spine without contrast TECHNICAL SME Nawaf Mckoy Work Phone: Start: 03-14-2022 Urinalysis microscop ic only Karen Spaulding MD Work Phone: Start: 03-14-2022 Urnls dip stick/tabl et rgnt auto w/o microscopy Karen Spaulding MD Work Phone: Start: 03-14-2022 Radiologic exam ches t 2 views Karen Spaulding MD Work Phone: Start: 03-14-2022 Ct cervical spine w/ o contrast material Karen Spaulding MD Work Phone: Start: 03-14-2022 Ct head/brain w/o contrast material Karen Spaulding MD Work Phone: Start: 03-14-2022 Comprehensive metabo lic panel Karen Spaulding MD Work Phone: Start: 08-03-2020 Urodynamic studies Kimr catarinamarcelino LYNDA Start: 04-22-2020 History of operative procedure on lumbar spinal structure Constantino HOWELL Comment on above: L4-5 patient states cage was sticking out of my bone and had to be repaired Start: 09-23-2019 History of operative procedure on lumbar spinal structure Constantino HOWELL Comment on above: L4-5 OLIF Start: 06-20-2018 H/O: surgery S/P nasal septoplasty Yvrose Sumner [employer] Work Phone: Start: 06-20-2018 History of tonsillectomy S/P tonsill ectomy Fiorella Sumner [employer] Work Phone: Start: 07-10-2016 section Rick HOWELL Comment on above: Twin Start: 09-27-2014 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 Constantino LYNDA Comment on above: x3 Start: 09-04-2014 Exploration of wound of skin Constantino HOWELL Comment on above: S/P lumbar decompres jaimie Start: 08-28-2014 Decompression of lum bar spine Constantino HOWELL Start: 01-10-2010 section Rick HOWELL Start: 01-08-2007 section Rick HOWELL Colonoscopy Constantino HOWELL Hernia repair Constantino HOWELL Laboratory test resu lt abnormal Dereck Dempsey Other Tonsillectomy Constantino HOWELL Plan of Treatment Date Care Activity Detail Author Start: 01-11-2032 DTaP,Tdap and Td Vaccines (3 - Td or Tdap) DTaP,Tdap and Td Vaccines (3 - Td or Tdap) [facility] Start: 01-11-2032 DTaP/Tdap/Td vaccine (3 - Td or Tdap) DTaP/Tdap/Td vaccine (3 - Td or Tdap) [facility] Start: 08-22-2024 Adult BMI Screening Adult BMI Screening [facility] Start: 08-20-2024 Tobacco Screening Tobacco Screening [facility] Start: 08-19-2024 Adult BMI Screening Adult BMI Screening [facility] Start: 08-19-2024 Tobacco Screening Tobacco Screening [facility] Start: 07-23-2024 Adult BMI Screening Adult BMI Screening [facility] Start: 07-23-2024 Depression Screening Depression Screening [facility] Start: 07-23-2024 Tobacco Screening Tobacco Screening [facility] Start: 07-03-2024 Adult BMI Screening Adult BMI Screening [facility] Start: 07-03-2024 Depression Screening Depression Screening [facility] Start: 07-03-2024 Tobacco Screening Tobacco Screening [facility] Start: 06-12-2024 Adult BMI Screening Adult BMI Screening [facility] Start: 06-12-2024 Tobacco Screening Tobacco Screening [facility] Start: 06-08-2024 Adult BMI Screening Adult BMI Screening [facility] Start: 06-08-2024 Depression Screening Depression Screening [facility] Start: 06-08-2024 Tobacco Screening Tobacco Screening [facility] Start: 05-16-2024 Tobacco Screening Tobacco Screening [facility] Start: 05-07-2024 Adult BMI Screening Adult BMI Screening [facility] Start: 04-02-2024 Urine screening for protein Urine Microalbumin [facility] Start: 02-24-2024 Adult BMI Follow Up Plan Adult BMI Follow Up Plan [facility] Start: 02-24-2024 Depression Screening Depression Screening [facility] Start: 01-20-2024 Influenza vaccination Influenza Vaccine [facility] Start: 11-09-2023 End: 11-09-2023 Patient encounter procedure 11/09/2023 8:30 AM EDT Office Visit [facility] [address] [facility] [place] [phone] Carol Urbina MD [address] [place] [address], [address] [phone] [facility] Start: 10-18-2023 End: 10-18-2023 Clinical Support [facility] Start: 09-06-2023 End: 09-06-2023 Patient encounter procedure 09/06/2023 7:45 AM EDT Office Visit [facility] [address] [facility] [address] [place] [address] Rublaitus, Tiffanie, [employer] [address] [address] [facility] Start: 08-30-2023 End: 08-30-2023 Patient encounter procedure 08/30/2023 2:00 PM EDT Office Visit [facility] [address] [place] [phone] King Robles DO [address] [place] [address] [facility] Start: 08-21-2023 End: 08-21-2023 Patient encounter procedure 08/21/2023 2:15 PM EDT Office Visit [facility] [address] [place] [phone] King Robles DO [address], [place] [address] [facility] Start: 08-13-2023 End: 08-13-2023 Patient encounter procedure 08/13/2023 10:45 AM EDT Office Visit [facility] [address] [facility] [address] [place] [phone] Rublaitus, Tiffanie, [employer] [address] [facility] [address] [place] [address] [facility] Start: 07-24-2023 End: 07-24-2023 Patient encounter procedure 07/24/2023 2:20 PM EST Office Visit [facility] [address] [place] [phone] King Robles, DO [address], [place] [address] [facility] Start: 07-17-2023 End: 07-17-2023 Patient encounter procedure 07/17/2023 8:30 AM EST Office Visit [facility] [address] [place] [phone] Abby Berg MD [address] [facility] [address] [place] [address] [facility] Start: 07-03-2023 End: 07-03-2023 Patient encounter procedure 07/03/2023 1:30 PM EST Office Visit [facility] [address] [place] [phone] King Robles DO [address] [place] [address] [facility] Start: 06-20-2023 End: 06-20-2024 Wireless Telemetry (In Office) [employer] Work Phone: Comment on above: Expected: 06/20/2023, Expires: Start: 06-15-2023 End: 06-15-2023 Patient encounter procedure 06/15/2023 1:00 PM EST Office Visit [facility] [address] [facility] [place] [phone] Carol Urbina MD [address] [place] [address], [address] [phone] [facility] Start: 06-12-2023 End: 06-12-2023 Patient encounter procedure 06/12/2023 1:00 PM EST Office Visit [facility] [address] [place] [phone] Abby Berg MD [address] [facility], [address] [address] [facility] Start: 06-07-2023 End: 06-07-2023 Patient encounter procedure [facility] Start: 05-24-2023 End: 05-24-2023 Admission to same day surgery center 05/24/2023 7:30 AM EST - 05/24/2023 11:30 AM EST Surgery [facility] [address] [place] [phone] Jesu Nevarez, DPM [address] [place], [place] [phone] [employer] [92807 (CPT )] [facility] Comment on above: [employer] [02190 (CPT )] Start: 05-24-2023 End: 05-24-2023 Anesthesia consultation 05/24/2023 7:30 AM EST Anesthesia Event [facility] [address] [place] [phone] Iker Baca, DO [address] [place] [address] [facility] Start: 05-24-2023 End: 05-24-2023 Arthrd midtarsl/tarsometatarsal mult/transvrs [employer] right foot 1st & 2nd TMT joint dislocation, post-traumatic arthritis, equinus contracture 05/24/2023 7:30 AM EST [facility] Start: 05-24-2023 End: 05-24-2023 Gastrocnemius recession REPAIR MUSCLE RECESSION GASTROCNEMIUS right foot 1st & 2nd TMT joint dislocation, post-traumatic arthritis, equinus contracture 05/24/2023 7:30 AM EST [facility] Start: 05-24-2023 End: 05-24-2023 HARVEST BONE GRAFT LOWER EXTREMITY HARVEST BONE GRAFT LOWER EXTREMITY right foot 1st & 2nd TMT joint dislocation, post-traumatic arthritis, equinus contracture 05/24/2023 7:30 AM EST [facility] Start: 05-24-2023 Subsequent hospital visit by physician 05/24/2023 7:30 AM EST Hospital Encounter [facility] [address] [place] [phone] Jesu Nevarez, DPM [address] [place] [address] [facility] Start: 05-16-2023 End: 05-16-2024 Echo complete W/O contrast Echo complete W/O contrast Echocardiography Routine PFO (patent foramen ovale) Mixed hyperlipidemia Cigarette smoker Palpitations Syncope, unspecified syncope type Expected: 05/16/2023, Expires: 05/16/2024 [facility] [employer] [facility] Comment on above: Expected: 05/16/2023, Expires: Start: 05-16-2023 End: 05-16-[address] [facility] Comment on above: Expected: 05/16/2023, Expires: Start: 05-16-2023 End: 05-16-2024 US Carotid arteries - bilateral Vas carotid duplex bilateral Vascular Ultrasound Routine Lightheadedness Syncope, unspecified syncope type Expected: 05/16/2023, Expires: 05/16/2024 [facility] Comment on above: Expected: 05/16/2023, Expires: Start: 05-16-2023 End: 05-16-2024 Wireless Telemetry (In Office) Wireless Telemetry (In Office) Cardiac Services Routine PFO (patent foramen ovale) Palpitations Lightheadedness Expected: 05/16/2023, Expires: 05/16/2024 [facility] Work Phone: Comment on above: Expected: 05/16/2023, Expires: Start: 01-19-2023 COVID-19 Vaccine ( season) COVID-19 Vaccine ( season) [facility] [employer] Start: 01-11-2023 [facility] Start: 03-30-2022 End: 03-30-2022 Patient encounter procedure 03/30/2022 Office Visit Internal Medicine Linette Zapata MD [address] [place] [address] [facility] Start: 03-15-2022 End: 03-15-2022 Patient encounter procedure 03/15/2022 Office Visit Orthopedic Surgery [facility] Start: 12-19-2021 Influenza vaccination Flu vaccine (#1) [employer] Start: 2018 Screening for malignant neoplasm of cervix [employer] Start: 2009 Screening for malignant neoplasm of cervix Pap smear [employer] Start: 2006 Diabetic foot examination Diabetic Foot Exam [facility] Start: 2006 Hepatitis C screening Hepatitis C screen [employer] Start: 11-30-2003 HIV screening HIV screen [facility] Start: 2000 Depression Screen Depression Screen [facility] Start: 1994 Pneumococcal 0-64 years Vaccine (1 - PCV) Pneumococcal 0-64 years Vaccine (1 - PCV) [facility] Start: 1989 Varicella vaccine (1 of 2 - 2-dose childhood series) Varicella vaccine (1 of 2 - 2-dose childhood series) [facility] Start: 06-01-1989 COVID-19 Vaccine (#1) COVID-19 Vaccine (#1) [facility] Start: 1988 Glaucoma screening Diabetic Ophthalmology Exam [facility] [employer] [facility] End: 08-22-2024 C difficile by PCR C difficile by PCR Lab Routine Diarrhea, unspecified type 1 Occurrences starting 08/23/2023 until 08/22/2024 [employer] Phone: Comment on above: 1 Occurrences starting 08/23/2023 until 08/22/2024 End: 08-07-2024 C-reactive protein C-reactive protein Lab Routine Generalized abdominal pain Lower abdominal pain 1 Occurrences starting 08/08/2023 until 08/07/2024 [facility] Comment on above: 1 Occurrences starting 08/08/2023 until 08/07/2024 End: 08-07-2024 Calprotectin, F Calprotectin, F Lab Routine Generalized abdominal pain Abnormal CT of the abdomen Lower abdominal pain Diarrhea, unspecified type 1 Occurrences starting 08/08/2023 until 08/07/2024 [facility] Comment on above: 1 Occurrences starting 08/08/2023 until 08/07/2024 End: 08-07-2024 CBC W Auto Differential panel - Blood CBC auto differential Lab Routine Generalized abdominal pain Hx of iron deficiency 1 Occurrences starting 08/08/2023 until 08/07/2024 [facility] Comment on above: 1 Occurrences starting 08/08/2023 until 08/07/2024 End: 08-07-2024 Colonoscopy Colonoscopy GI Routine Generalized abdominal pain Abnormal CT of the abdomen Lower abdominal pain Diarrhea, unspecified type 1 Occurrences starting 08/08/2023 until 08/07/2024 [facility] Comment on above: 1 Occurrences starting 08/08/2023 until 08/07/2024 End: 08-07-2024 Comprehensive metabolic 2000 panel - Serum or Plasma Comprehensive metabolic panel Lab Routine Generalized abdominal pain 1 Occurrences starting 08/08/2023 until 08/07/2024 [employer] Comment on above: 1 Occurrences starting 08/08/2023 until 08/07/2024 End: 08-07-2024 Esophagogastroduodenoscopy EGD GI Routine Nausea and vomiting, unspecified vomiting type Generalized abdominal pain Abnormal CT of the abdomen Dark emesis Chronic GERD Duodenitis 1 Occurrences starting 08/08/2023 until 08/07/2024 [employer] Comment on above: 1 Occurrences starting 08/08/2023 until 08/07/2024 End: 08-07-2024 Ferritin [Mass/volume] in Serum or Plasma Ferritin Lab Routine Generalized abdominal pain Hx of iron deficiency 1 Occurrences starting 08/08/2023 until 08/07/2024 [employer] Comment on above: 1 Occurrences starting 08/08/2023 until 08/07/2024 End: 08-07-2024 GI Panel(stool pathogen panel) GI Panel(stool pathogen panel) Lab Routine Generalized abdominal pain Abnormal CT of the abdomen Lower abdominal pain Diarrhea, unspecified type 1 Occurrences starting 08/08/2023 until 08/07/2024 [employer] Work Phone: Comment on above: 1 Occurrences starting 08/08/2023 until 08/07/2024 End: 08-07-2024 Iron and TIBC Iron and TIBC Lab Routine Generalized abdominal pain Hx of iron deficiency 1 Occurrences starting 08/08/2023 until 08/07/2024 [employer] Comment on above: 1 Occurrences starting 08/08/2023 until 08/07/2024 End: 08-07-2024 Lipase [Enzymatic activity/volume] in Serum or Plasma Lipase Lab Routine Generalized abdominal pain 1 Occurrences starting 08/08/2023 until 08/07/2024 [employer] Comment on above: 1 Occurrences starting 08/08/2023 until 08/07/2024 End: 05-16-2024 Magnesium [Mass/volume] in Serum or Plasma Magnesium Lab Routine Palpitations 1 Occurrences starting 05/16/2023 until 05/16/2024 [employer] Comment on above: 1 Occurrences starting 05/16/2023 until 05/16/2024 End: 08-07-2024 O & P Screen O & P Screen Lab Routine Generalized abdominal pain Abnormal CT of the abdomen Lower abdominal pain Diarrhea, unspecified type 1 Occurrences starting 08/08/2023 until 08/07/2024 [facility] Comment on above: 1 Occurrences starting 08/08/2023 until 08/07/2024 Patient Education Degenerative D isc Disease ED [facility] Work Phone: Patient referral [facility] Work Phone: End: 06-12-2024 Polysomnography 4 or more parameters with PAP titration Polysomnography 4 or more parameters with PAP titration Sleep Center Routine Obstructive sleep apnea 1 Occurrences starting 06/12/2023 until 06/12/2024 [facility] Work Phone: Comment on above: 1 Occurrences starting 06/12/2023 until 06/12/2024 End: 08-07-2024 Stool Culture & E.Coli Shiga Like Toxin Stool Culture & E.Coli Shiga Like Toxin Microbiology Routine Generalized abdominal pain Abnormal CT of the abdomen Lower abdominal pain Diarrhea, unspecified type 1 Occurrences starting 08/08/2023 until 08/07/2024 [facility] Comment on above: 1 Occurrences starting 08/08/2023 until 08/07/2024 End: 05-16-2024 Thyroid profile includes TSH FT4 Thyroid profile includes TSH FT4 Lab Routine Palpitations 1 Occurrences starting 05/16/2023 until 05/16/2024 [facility] [employer] Comment on above: 1 Occurrences starting 05/16/2023 until 05/16/2024 Immunizations Immunization Date Immunization Notes Care Provider Janny patel 05-24-2023 Human Papillomavirus 9-valent vaccine King Furlong DO Work Phone: [facility] 05-24-2023 zoster vaccine recombinant King Furlong DO Work Phone: [facility] 04-02-2023 influenza, injectabl e, quadrivalent, preservative free Fiorella Sumner [employer] Work Phone: [facility] 04-02-2023 influenza virus vacc ine, unspecified formulation Kiara Jese [employer] [facility] 09-20-2022 Hepatitis B vaccine (recombinant), CpG adjuvanted Fiorella Carlsonmax TECH[employer] Work Phone: [facility] 09-20-2022 Human Papillomavirus 9-valent vaccine Fiorella Carlsonmax [employer] Work Phone: [facility] 09-20-2022 Pneumococcal Conjuga te 20-valent Fiorella Aldomax TE[employer] Work Phone: [facility] 01-10-2022 tetanus toxoid, redu ernestine diphtheria toxoid, and acellular pertussis vaccine, adsorbed Fiorella Carlsonmax [employer] Work Phone: [facility] 05-25-2021 COVID-19 mRNA, Mela grewal (Viajala) [facility] 05-24-2021 COVID-19, mRNA, LNP- S, PF, 30mcg/0.3mL Dose Fiorellavero Carlsonmax TE[employer] Work Phone: [facility] 06-24-2019 influenza virus vacc ine, unspecified formulation Fiorella Carlsonmax TE[employer] Work Phone: [facility] 03-13-2018 Influenza, injectabl e, Madin [place] Canine Kidney, preservative free, quadrivalent Fiorella Aldomax [employer] Work Phone: [facility] 01-21-2018 influenza, injectabl e, quadrivalent, preservative free Fiorella Aldonesheridan TECHNICAL [employer] Work Phone: [facility] 07-13-2016 tetanus toxoid, redu ernestine diphtheria toxoid, and acellular pertussis vaccine, adsorbed Fiorella Murnesheridan TECH[employer]ICAL [employer] Work Phone: [facility] Payers Date Payer Category Payer Medicaid [facility] MEDICAID [facility] MEDICAID [id number] 2022-Present [address] [place] [address] [id number] 2022 Medicaid [id number] 1988 Unknown [id number] 2.16.840.1.725259.3.579.2.593 1988 Unknown [id number] 2.16.840.1.555776.3.579.2.593 1988 Unknown [id number] 2.16.840.1.937871.3.579.2.593 1988 Unknown [id number] 2.16.840.1.848724.3.579.2.593 1988 Unknown [id number] 2.16.840.1.782083.3.579.2.175 1988 Unknown [id number] 2.16.840.1.505817.3.579.2.175 1988 Unknown [id number] 2.16.840.1.800131.3.579.2.175 1988 Unknown [id number] 2.16.840.1.836002.3.579.2.177 1988 Unknown [id number] 2.16.840.1.045009.3.579.2.727 1988 Unknown [id number] 2.16.840.1.356252.3.579.2.727 1988 Unknown [id number] 2.16.840.1.682747.3.579.2.727 1988 Unknown [id number] 2.16.840.1.174288.3.579.2.1286 1988 Unknown [id number] 2.16.840.1.782882.3.579.2.1286 1988 Unknown [id number] 2.16.840.1.089468.3.579.2.1286 1988 Unknown [id number] 2.16.840.1.352028.3.579.2.1285 1988 Unknown [id number] 2.16.840.1.711171.3.579.2.1285 1988 Unknown [id number] 2.16.840.1.596458.3.579.2.1285 1988 Unknown [id number] 2.16840.1.820068.3.579.2.1285 1988 Unknown [id number] 2.16.840.1.872723.3.579.2.1285 1988 Unknown [id number] 2.840.1.108069.3.579.2.1285 1988 Unknown [id number] 2.16840.1.434116.3.579.2.1285 1988 Unknown [id number] 2840.1.676466.3.579.2.1285 1988 Unknown [id number] 2.840.1.980964.3.579.2.1285 1988 Unknown [id number] 2.840.1.368194.3.579.2.1285 1988 Unknown [id number] 2.840.1.723970.3.579.2.1285 1988 Unknown [id number] 2840.1.623456.3.579.2.1285 1988 Unknown [id number] 2.16840.1.629759.3.579.2.1285 1988 Unknown [id number] 2.16840.1.165381.3.579.2.1285 1988 Unknown [id number] 2.16840.1.297807.3.579.2.1258 1988 Unknown [id number] 2.840.1.915107.3.579.2.1258 1988 Unknown [id number] 2.16840.1.886283.3.579.2.1258 1988 Unknown [id number] 2.16840.1.947964.3.579.2.1258 1988 Unknown [id number] 2.16.840.1.027111.3.579.2.1258 1988 Unknown [id number] 2.16840.1.916393.3.579.2.1258 1988 Unknown [id number] 2.16.840.1.894488.3.579.2.1258 1988 Unknown [id number] 2.16840.1.540690.3.579.2.1258 1988 Unknown [id number] 2.16840.1.699735.3.579.2.1258 1988 Unknown [id number] 2.840.1.274427.3.579.2.1258 1988 Unknown [id number] 2.840.1.705359.3.579.2.1258 1988 Unknown [id number] 2.840.1.439041.3.579.2.1285 1988 Unknown [id number] 2.840.1.194718.3.579.2.1285 1988 Unknown [id number] 2840.1.955307.3.579.2.1285 1988 Unknown [id number] 2.16840.1.899379.3.579.2.1285 1988 Unknown [id number] 2.16840.1.373798.3.579.2.1285 1988 Unknown [id number] 2.16840.1.411262.3.579.2.1285 1988 Unknown [id number] 2.16840.1.325697.3.579.2.1285 1988 Unknown [id number] 2.16.840.1.946830.3.579.2.1285 1988 Unknown [id number] 2.16.840.1.226242.3.579.2.1285 1988 Unknown [id number] 2.16.840.1.246293.3.579.2.1285 1988 Unknown [id number] 2.16.840.1.995587.3.579.2.1285 1988 Unknown [id number] 2.16.840.1.400490.3.579.2.1285 1988 Unknown [id number] 2.16.840.1.385535.3.579.2.1285 1988 Unknown [id number] 2.16.840.1.246324.3.579.2.1285 1988 Unknown [id number] 2.16.840.1.032689.3.579.2.1285 1988 Unknown [id number] 1988 Unknown [id number] 1988 Unknown [id number] 1988 Unknown [id number] 1988 Unknown [id number] 1988 Unknown [id number] 1988 Unknown [id number] 1988 Unknown [id number] [facility]1959 Self-pay [id number] 1959 Unknown [id number] 1959 Unknown [id number] Self-pay Self Pay [id number] Social History Date Type Detail Facility Start: 04-20-2021 Tobacco smoking status Heavy tobacco smoker (finding) [facility] [employer] Other Start: 04-02-2023 End: 08-21-2023 Sex Assigned At Female [facility] [employer] Other Start: 07-27-2015 Tobacco smoking status MDIS Smokes tobacco daily [facility]: Start: 06-23-2002 End: 07-14-2022 History of tobacco use Cigarette Smoker [facility]: Start: 07-27-2015 End: 04-02-2023 Cigarettes smoked current (pack per day) - Reported 0.5 [facility]: Start: 07-27-2015 End: 04-02-2023 Tobacco use and exposure Smokeless tobacco non-user [facility] [facility]: Start: 03-14-2022 End: 08-21-2023 Alcohol intake Current drinker of alcohol (finding) [facility]: Start: 1988 Sex Assigned At Not on file [facility]: Start: 03-04-2022 End: 03-14-2022 Exposure to SARS-CoV-2 (event) Not sure [facility]: Start: 1990 Sex Assigned At Female [facility] Start: 06-23-2002 End: 07-14-2022 Tobacco smoking status NHIS Smoker (finding) [facility] Start: 04-02-2023 Tobacco smoking status MDIS Ex-smoker Good Thing Has the [employer], [place] s, [employer], or [employer] threatened to shut off services in your home in past 12Mo Yes [facility] Do you belong to any clubs or organizations such as christianity groups, unions, fraternal or athletic groups, or school groups? No [facility] Are you now , , , , never or living with a partner? [facility] How often to you hav e a drink containing alcohol? Monthly or less [facility] How many standard dr inks containing alcohol do you have on a typical day? 1 or 2 [facility] How often do you hav e 6 or more drinks on 1 occasion? Never [facility] How hard is it for y ou to pay for the very basics like food, housing, medical care, and heating Somewhat hard [facility] Adolescent depressio n screening assessment 0 [facility] Do you feel stress - tense, restless, nervous, or anxious, or unable to sleep at night because your mind is troubled all the time - these days [OSQ] Rather much [facility] Start: 06-12-2018 Alcohol Comment rarely [facility] Start: 02-17-2020 Gender identity Identifies as female gender (finding) [facility] Start: 02-17-2020 Sexual orientation Bisexual (finding) [facility] tem Medical Equipment Procedure Code Equipment Code Equipment Origin al Text Equipment Identifier Dates Fusion, spine, lumbar, XLIF XLIF 1 LEVEL MAS REDUCTION FDA Start: 09-23-2019 Fusion, spine, lumbar, XLIF Bone-screw internal spinal fixation system, non-sterile ()[id number] FDA Start: 09-23-2019 Fusion, spine, lumbar, XLIF Spinal fusion graft kit ()[id number] FDA Start: 09-23-2019 Fusion, spine, lumbar, XLIF Bone matrix implant, human-derived ()[id number] FDA Start: 09-23-2019 Fusion, spine, lumbar, XLIF Bone-screw internal spinal fixation system, non-sterile ()[id number] FDA Start: 09-23-2019 Fusion, spine, lumbar, XLIF Bone-screw internal spinal fixation system, non-sterile ()[id number] FDA Start: 09-23-2019 Fusion, spine, lumbar, XLIF Spinal fusion graft kit ()[id number] FDA Start: 04-22-2020 Fusion, spine, lumbar, XLIF Bone matrix implant, human-derived ()[id number] FDA Start: 04-22-2020 Fusion, spine, lumbar, XLIF Metallic spinal fusion cage, non-sterile ()[id number] FDA Start: 04-22-2020 Fusion, spine, lumbar, XLIF Metallic spinal fusion cage, non-sterile ()[id number] FDA Start: 09-23-2019 Fusion, spine, lumbar, XLIF XLIF 1 LEVEL MAS REDUCTION FDA Start: 09-23-2019 Fusion, spine, lumbar, XLIF XLIF 1 LEVEL MAS REDUCTION FDA Start: 09-23-2019 Fusion, spine, lumbar, XLIF XLIF 1 LEVEL MAS REDUCTION FDA Start: 09-23-2019 Fusion, spine, lumbar, XLIF XLIF 1 LEVEL MAS REDUCTION FDA Start: 09-23-2019 Fusion, spine, lumbar, XLIF XLIF 1 LEVEL MAS REDUCTION FDA Start: 09-23-2019 Fusion, spine, lumbar, XLIF XLIF 1 LEVEL MAS REDUCTION FDA Start: 09-23-2019 [id number] Start: 01-03-2022 Mesh Pco Vntrl Ptch 4.6cm Rpl [id number] FDA Start: 02-27-2020 Goals Date Patient Goal Desired Activity /State Personal health goal Comment on above: Formatting of this n ote might be different from the original. Evaluation of progress towards goal: In progress: Return home, denies any DC needs. Personal health goal Comment on above: Formatting of this n ote might be different from the original. Evaluation of progress towards goal: patient would like to go home with self. Clinical Notes 04-13-2021 to 08-08-2023 Telephone Encounter - ROSEMARY Garza - 08/08/2023 10:56 AM EDTTelephone Encounter - ROSEMARY Garza - 08/08/2023 10:56 AM EDTPatient InstructionsAttachments Note Date & Type Note Facility 08-08-2023 Miscellaneous Notes Checkout Instructions for Telemedicine Video Visit on 08/08/23: Labs Stool tests EGD and CLN by Dr. Carreno at [facility], MAC, ASA 3 w/ cardiac clearance w/ large volume prep infectious stool studies need to be resulted prior to scheduling F/u 3-4 mo after procedures with Dr. Carreno Obtain prior EGD and CLN reports and path documented in this encounter [facility] 08-08-2023 Telephone encounter Note Checkout Instructions for Telemedicine Video Visit on 08/08/23: Labs Stool tests EGD and CLN by Dr. Carreno at [facility]/[place], MAC, ASA 3 w/ cardiac clearance w/ large volume prep infectious stool studies need to be resulted prior to scheduling F/u 3-4 mo after procedures with Dr. Carreno Obtain prior EGD and CLN reports and path [facility] 08-08-2023 History of Presen t illness Narrative [facility] New Patient Visit - History & Physical Video Visit Encounter This call is considered a telemedicine video visit, which is to help assess your current healthcare needs and to determine the appropriate care you may require. This visit may be a billable service through your insurance company. Do you consent to moving forward with this telephone visit? Yes Video Visit via Real-time Synchronous Audiovisual Patient Location: in [place] Video Visit Consent Statement: I discussed risks, benefits, and alternatives of a real-time synchronous audiovisual consultation with the patient (and any accompanying persons) including the risks that the patient's personal health details and medical records will be discussed over real-time, synchronous, interactive video/audio/telecommunication technology, the visit will not be recorded without the express consent of both the provider and the patient, and that there are some limitations compared to [id number] evaluations. We elected to proceed. CHIEF COMPLAINT: Colitis HISTORY OF PRESENT ILLNESS: Xiang Mahoney is a 32 y.o. female who has a PMH of anemia, anxiety, arrhythmia, asthma, bioplar 1 disorder, cataract, CKD, chronic low back pain, depression, DM2, fibromyalgia, folliculitis, GERD, GDM, HLD, hypomagnesemia, TANYA, neurogenic bladder, obesity, palpitations, paresthesia, PFO, PONV, spinal stenosis, stroke who presents today for initial evaluation. Xiang was hospitalized at [facility] from 06/27-06/30/23 for intractable nausea and brown emesis, fever, diffuse abdominal pain. Had elevated WBC 18.2. Creatinine 1.38. Potassium 2.[address] a/P showed mild colitis involving the ascending, transverse colon and TI and possible cecum, likely inflammatory versus infectious etiology. Also showed hepatic steatosis and duodenitis. Was treated with IV levofloxacin and IV Flagyl. Was given Compazine and Reglan. Was able to tolerate a soft diet. Was advised to start Prilosec for 10 days and take Pepcid 20 mg b.i.d.. Was also discharged on Compazine and Bentyl. Today, she reports she has restarted taking omeprazole 40 mg daily. Reports she has been on this for many years. She is also taking Pepcid 20 mg b.i.d.. Continues to have nausea most of the day that is worse in the morning and evenings. Has only had 2 episodes of vomiting since she was discharged. Has heartburn daily. Denies sore throat, hoarseness, dysphagia, odynophagia. Had her gallbladder removed in 2006 due to cholelithiasis. Does not take NSAIDs due to allergic reaction with vomiting and hives. Rarely consumes alcohol. Vapes tobacco daily and uses marijuana occasionally. Hot baths causes her to have dizziness and syncope. Consumes at least 1-2 mountain Dews per day, sometimes more. Taking Compazine about once daily. Baseline she has IBS-M. Since discharge has been having > 5 episodes of diarrhea per day. Has urgency, incontinence and nocturnal stools. Yesterday she woke up and had a bowel movement in bed without knowing. Has lower abdominal pain that is improved with Bentyl and curling up into a ball. Taking Bentyl about every 6 hours. Denies BSS 1 stools, straining, missing days without defecation or formed stools. Has noted a couple or occurrences of bright red blood mixed in the toilet water and has a history of hemorrhoids. No family history of IBD or colon cancer. Reports an EGD many years ago that showed reflux. Has had 2 colonoscopies with polyps removed and recommended repeat every 5 years. Reports she has been iron-deficiency for a long time in his on ferrous sulfate 325 mg daily. Her primary care manages her diabetic medications. She follows with [facility] cardiology. HISTORY OF PRESENT ILLNESS: Pt reports EGD many years ago; patient reports showed reflux Pt reports 2014 Colonoscopy - polyps removed Pt reports [address] Gaytan in [facility] - GI - polyps - recommended every 5 years HISTORY OF PRESENT ILLNESS: 06/26/23 CT A/P with contrast: GI TRACT AND PERITONEUM: No dilated bowel loops. Submucosal fat deposition of the ascending colon with mild fat stranding. Prominent vasa recta throughout the colon. Mild hyperenhancement terminal ileum, without significant adjacent fat stranding. No free air or significant free fluid. The appendix is unremarkable. MUSCULOSKELETAL/ABDOMINAL WALL: No acute osseous abnormalities. Degenerative changes of the lumbar spine. Previous umbilical hernia repair. IMPRESSION: * Mild ascending colitis and terminal ileitis, infectious or inflammatory etiology. There is prominent submucosal fat deposition of the cecum, consider an underlying history of inflammatory bowel disease in the appropriate clinical setting. * Hepatic steatosis. 06/27/23 CT A/P with contrast: GI TRACT AND PERITONEUM: No dilated bowel loops. No free air or significant free fluid. Submucosal fat deposition within the ascending colon along with mild hyperenhancement of the colon now involving the ascending and transverse colon. Mild hyperenhancement of the proximal duodenum. Similar-appearing mild hyperenhancement of the terminal ileum. Prominent vasa recta again demonstrated throughout the colon. Appendix is unremarkable. MUSCULOSKELETAL/ABDOMINAL WALL: No acute osseous abnormalities. Degenerative of the lumbar spine. Previous umbilical hernia repair. IMPRESSION: Mild colitis involving the ascending and transverse colon, as well as possibly mild duodenitis and terminal ileitis. Likely infectious or inflammatory etiology. Past Medical History: Diagnosis Date Anemia Anxiety Arrhythmia Asthma Bipolar 1 disorder ([facility]) Bipolar disorder, unspecified ([facility]) Cataract Chronic headache Chronic kidney disease kidney stone Chronic low back pain Dental disease edentulous Depression Diabetes mellitus type 2, controlled ([facility]) Fibromyalgia Folliculitis GERD (gastroesophageal reflux disease) Gestational diabetes mellitus (GDM) Hyperlipidemia Hypomagnesemia Moderate obstructive sleep apnea Neurogenic bladder Obesity Palpitations Paresthesia PFO (patent foramen ovale) PONV (postoperative nausea and vomiting) Prolonged emergence from general anesthesia Spinal stenosis Stroke ([facility]) Visual impairment glasses PREVIOUS ENDOSCOPY OR X-RAY PROCEDURES: As noted in the HPI Past Surgical History: Past Surgical History: Procedure Laterality Date BACK SURGERY N/A 07/10/2016 Performed by Seu Vásquez MD at [facility] OR SECTION 2006 CHOLECYSTECTOMY 2006 POSTERIOR LAMINECTOMY / DECOMPRESSION LUMBAR SPINE 08/2014 REPAIR CSF LEAK CRANIAL REPAIR CSF LEAK CRANIAL REPAIR HERNIA UMBILICAL N/A 02/27/2020 Performed by Micha Leon MD at [facility] RESECTION SUBMUCOSAL Bilateral 06/13/2018 Performed by Natali Shea MD at [facility] SEPTOPLASTY N/A 06/13/2018 Performed by Natali Shea MD at [facility] TONSILLECTOMY ADENOIDECTOMY Bilateral 06/13/2018 Performed by Natali Shea MD at [facility] TUBAL LIGATION WOUND EXPLORATION 08/2014 Current Medications: Current Outpatient Medications: acetaminophen (TYLENOL EXTRA STRENGTH) 500 mg tablet, Take 1 tablet (500 mg total) by mouth every 6 (six) hours as needed for pain., Disp: 60 tablet, Rfl: 3 albuterol (PROVENTIL HFA;VENTOLIN HFA) 90 mcg/actuation inhaler, Inhale 2 puffs every 6 (six) hours as needed for wheezing., Disp: 18 g, Rfl: 1 ALCOHOL PREP PADS pads, medicated, , Disp: , Rfl: ARIPiprazole (ABILIFY) 2 mg tablet, Take 1 tablet (2 mg total) by mouth in the morning., Disp: 30 tablet, Rfl: 2 aspirin 81 mg chewable tablet, Chew 1 tablet (81 mg total) and swallow daily., Disp: 20 tablet, Rfl: 0 baclofen (LIORESAL) 10 mg tablet, Take 1 tablet (10 mg total) by mouth 3 (three) times a day., Disp: 90 tablet, Rfl: 2 benzocaine-menthoL (CEPACOL SORE THROAT) 15-3.6 mg lozenge, Dissolve 1 lozenge in the mouth every 2 (two) hours as needed (sore throat)., Disp: 18 lozenge, Rfl: 0 busPIRone (BUSPAR) 30 mg tablet, Take 0.999 tablets (30 mg total) by mouth in the morning and 0.999 tablets (30 mg total) before bedtime., Disp: 60 tablet, Rfl: 5 cariprazine (VRAYLAR) 1.5 mg capsule, Take 1 capsule (1.5 mg total) by mouth in the morning., Disp: 30 capsule, Rfl: 1 cetirizine (ZyrTEC) 10 mg tablet, Take 1 tablet (10 mg total) by mouth in the morning., Disp: 30 tablet, Rfl: 5 cyanocobalamin 1000 MCG tablet, Take 1 tablet (1,000 mcg total) by mouth in the morning., Disp: 30 tablet, Rfl: 5 dicyclomine (BENTYL) 20 mg tablet, Take 1 tablet (20 mg total) by mouth every 6 (six) hours as needed (abdominal cramping)., Disp: 20 tablet, Rfl: 1 escitalopram (LEXAPRO) 10 mg tablet, Take 1 tablet (10 mg total) by mouth in the morning., Disp: 90 tablet, Rfl: 1 famotidine (PEPCID) 20 mg tablet, Take 1 tablet (20 mg total) by mouth in the morning and 1 tablet (20 mg total) before bedtime., Disp: 30 tablet, Rfl: 1 fenofibrate (TRICOR) 145 mg tablet, Take 1 tablet (145 mg total) by mouth in the morning., Disp: 30 tablet, Rfl: 5 ferrous sulfate 325 (65 FE) mg tablet, Take 1 tablet (325 mg total) by mouth daily with breakfast., Disp: 30 tablet, Rfl: 2 flash glucose sensor (FREESTYLE MAKSIM 2 SENSOR) kit, 1 Unit by miscellaneous route every 14 (fourteen) days., Disp: 2 kit, Rfl: 5 fluticasone propionate (FLOVENT HFA) 44 mcg/actuation inhaler, 2 puffs BID. Rinse mouth out after use, Disp: 10.6 g, Rfl: 5 gabapentin (NEURONTIN) 600 mg tablet, Take 1 tablet (600 mg total) by mouth 3 (three) times a day., Disp: 90 tablet, Rfl: 5 insulin aspart U-100 (NovoLOG) 100 unit/mL (3 mL) insulin pen, Check blood sugar 4 times per day 70-149 mg/dL=0 units. 150-199 mg/dL=2 units. 200-249 mg/dL=4 units. 250-299 mg/dL=6 units. 300-349 mg/dL=8 units. 350-400 mg/dL=10 units. Max 40 units per day, Disp: 15 mL, Rfl: 0 ketorolac (ACULAR) 0.5 % ophthalmic solution, , Disp: , Rfl: lamoTRIgine (LaMICtal) 100 mg tablet, Take 1 tablet (100 mg total) by mouth in the morning., Disp: 30 tablet, Rfl: 2 lidocaine (LIDODERM) 5 %, Place 1 patch on the skin daily. Remove & Discard patch within 12 hours or as directed by MD, Disp: 30 patch, Rfl: 0 magnesium oxide (MAGOX) 400 mg tablet, Take 1 tablet (400 mg total) by mouth in the morning., Disp: 90 tablet, Rfl: 1 montelukast (SINGULAIR) 10 mg tablet, Take 1 tablet (10 mg total) by mouth nightly., Disp: 30 tablet, Rfl: 5 multivitamin with folic acid (DAILY-KAYLEE, WITH FOLIC ACID,) 400 mcg tablet, Take 1 tablet by mouth in the morning., Disp: 100 tablet, Rfl: 3 tamsulosin (FLOMAX) 0.4 mg capsule, Take 1 capsule (0.4 mg total) by mouth in the morning., Disp: 30 capsule, Rfl: 5 TECHLITE PEN NEEDLE 32 gauge x 1/4 needle, USE DIRECTED FOUR TIMES A DAY, Disp: , Rfl: tirzepatide (MOUNJARO) 7.5 mg/0.5 mL pen injector, Inject 7.5 mg under the skin every 7 days., Disp: 2 mL, Rfl: 1 traZODone (DESYREL) 50 mg tablet, Take by mouth nightly as needed., Disp: , Rfl: I reviewed and reconciled this patient's medication list today. The list included in this note is the most up to date list that I can attest to at this time based on the information that the patient has provided me and the electronic medical record. ALLERGIES: [place], Penicillins, [place], Ibuprofen, Amoxicillin, Duricef [cefadroxil], Nsaids (non-steroidal anti-inflammatory drug), [place] dye, Verapamil, Dilaudid [hydromorphone], and Vicodin [hydrocodone-acetaminophen] SOCIAL HISTORY: Social History Tobacco Use Smoking status: Former Packs/day: 1.00 Years: 19.00 Additional pack years: 0.00 Total pack years: 19.00 Types: Cigarettes Start date: 06/23/2002 Quit date: 07/14/2022 Years since quittin.0 Smokeless tobacco: Never Vaping Use Vaping Use: Every day Substances: Nicotine, THC Devices: Disposable Substance Use Topics Alcohol use: Yes Comment: rarely Drug use: Yes Types: Marijuana Comment: in vape FAMILY HISTORY: Family History Problem Relation Age of Onset Asthma Mother Arthritis Mother Bipolar disorder Mother Depression Mother Diabetes Mother Hypertension Mother Hyperlipidemia Mother Ulcers Mother Alcohol abuse Father no contact Ulcers Father Bipolar disorder Sister Depression Sister Anxiety disorder Sister No Known Problems Daughter 13 y/o in '24-lives with dad No Known Problems Daughter 7 y/o in 24-fraternal twin No Known Problems Son 16 y/o-lives with dad No Known Problems Son 7 y/o in 24-fraternal twin Asthma Maternal Grandmother Arthritis Maternal Grandmother Migraines Maternal Grandmother COPD Maternal Grandmother Diabetes Maternal Grandmother Heart disease Maternal Grandmother Hypertension Maternal Grandmother Heart attack Maternal Grandmother 64 cause of Diabetes Maternal Grandfather Leukemia Maternal Grandfather in his 60's No Known Problems Paternal Grandmother Heart attack Paternal Grandfather No Known Problems Half Brother ASSESSMENTS: REVIEW OF SYSTEMS: See HPI, otherwise ROS as below CONSTITUTIONAL: No significant weight change, fatigue, fever, chills HEENT: No eye pain, difficulty swallowing, or painful swallowing RESPIRATORY: No coughing, shortness of breath, or wheezing CARDIOVASCULAR: No chest pain, palpitations, dyspnea on exertion, or edema GASTROINTESTINAL: No abdominal pain, nausea/vomiting, change in bowel habits, or blood in stools GENITOURINARY: No dysuria or hematuria INTEGUMENT/BREAST: No skin rashes or skin lesions HEMATOLOGIC/LYMPHATIC: No anemia or easy bruising ALLERGIC/IMMUNOLOGIC: No seasonal allergies, itching, or hay fever ENDOCRINE: No heat/cold intolerance, no diabetes MUSCULOSKELETAL: No joint/muscle pain or arthritis NEUROLOGICAL: No headache or seizures BEHAVIOR/PSYCH: No anxiety or depression PHYSICAL EXAM: CONSTITUTIONAL: Alert, well developed and well-nourished. No apparent distress. PSYCH: Normal mood and affect. Behavior is normal. Unable to perform further physical assessment or vitals due to telemedicine video visit. DATA: 06/28/23 05:10 06/29/23 05:26 06/30/23 05:15 White Blood Cells 16.7 (H) 6.7 4.9 RBC count 4.68 4.35 4.03 Hemoglobin 14.4 13.3 12.5 Hematocrit 42.2 39.5 36.7 MCV 90 91 91 MCH 30.8 30.6 31.0 MPV 8.5 8.0 8.0 MCHC 34.1 33.7 34.0 RDW 13.5 12.9 12.8 Platelets 422 318 296 06/26/23 14:29 06/27/23 19:32 06/28/23 05:10 06/28/23 12:21 06/28/23 19:20 06/29/23 05:26 06/29/23 17:01 06/30/23 05:15 07/24/23 14:45 Sodium 133 (L) 132 (L) 133 (L) 133 (L) 136 139 Potassium 2.9 (L) 2.8 (L) 3.1 (L) 3.1 (L) 3.2 (L) 3.1 (L) 3.3 (L) 3.5 3.5 Chloride 104 95 (L) 96 (L) 97 (L) 102 107 CO2 15 (L) 20 (L) 22 25 25 24 Glucose 230 (H) 261 (H) 221 (H) 191 (H) 184 (H) 138 (H) Creatinine 0.81 1.38 (H) 0.97 0.82 0.78 0.74 BUN 6 16 15 12 11 8 Calcium 9.4 9.5 9.0 8.5 8.7 9.4 Total Protein 7.8 9.1 (H) 8.1 (H) 7.5 6.9 6.7 Albumin 4.9 5.2 4.8 4.2 3.8 4.1 Total bilirubin 0.9 1.8 (H) 1.1 0.9 0.7 0.4 AST 48 (H) 93 (H) 88 (H) 77 (H) 69 (H) 28 ALT 83 (H) 96 (H) 90 (H) 85 (H) 85 (H) 46 (H) Alkaline phosphatase 56 66 64 56 50 46 Anion gap 14 17 (H) 15 11 9 8 eGFR (CKD-EPI)non-race dependent >90 52 (L) 79 >90 >90 >90 Lipase 24 32 Magnesium 1.4 (L) 2.0 2.0 1.9 1.5 (L) Phosphorus 2.6 06/26/23 17:50 Nursing urine Negative ASSESSMENT AND PLAN: Xiang Mahoney is a 32 y.o. female who has a PMH of anemia, anxiety, arrhythmia, asthma, bioplar 1 disorder, cataract, CKD, chronic low back pain, depression, DM2, fibromyalgia, folliculitis, GERD, GDM, HLD, hypomagnesemia, TANYA, neurogenic bladder, obesity, palpitations, paresthesia, PFO, PONV, spinal stenosis, stroke who presents today for initial evaluation. Xiang had recent hospitalization from 06/27-06/30/23 for intractable nausea, dark brown emesis, fever, leukocytosis, diffuse ab pain. WBC 18.2, creatinine 1.38, K 2.8. Lipase normal 32. AST was elevated but normalized 28. ALT improving 46 (85, 85). Urine negative. No anemia and chronically on ferrous sulfate 325 mg daily. Had 2 [address] A/P performed showing mild colitis involving the ascending and transverse colon, TI and possibly cecum, likely inflammatory vs infectious etiology, along with duodenitis and hepatic steatosis. Treated with IV levofloxacin and IV Flagyl. Given Compazine and Reglan. Advised to hold Prilosec times 10 days and take Pepcid 20 mg b.i.d.. She is since resumed Pepcid and Prilosec 40 mg daily; has been on for years. Discharged on Compazine that she is taking daily as needed and Bentyl that she is taking about every 6 hours as needed. Reports 1 prior EGD showing reflux and 2 prior colonoscopies (last in 2014) with polyps removed at [facility]; no reports available for review. She does take 81 mg ASA daily for cardiac purposes. She uses tobacco daily and marijuana frequently. Dicussed ruling out infectious colitis. If negative, will evaluate for UC vs CD. Will also evaluate for colon polyps, duodenitis, celiac disease, gastritis, H.pylori, PUD, esophagitis, hiatal hernia. Could have component of cannabis hyperemesis versus cyclic vomiting syndrome. Given her diabetes could also have gastroparesis. Discussed EGD and colonoscopy procedures, prep, purpose, benefits/risks including sedation complications, bleeding, infection, perforation, tear and patient in agreement with proceeding. Plan: CBC, iron with TIBC, ferritin, CMP, CRP, lipase GI pathogen panel, O&P, Stool culture, Cdiff, fecal calprotectin Once infection ruled out, ok to schedule EGD and Colonoscopy E[facility] and [facility] INFECTIOUS STOOL STUDIES NEED TO BE RESULTED PRIOR TO SCHEDULING! W/ cardiac clearance W/ large volume prep d/t DM2 Advised patient to reach out to PCP regarding diabetic medications to see if dose adjustment needs made the day prior and day of procedures W/ esophageal bx for Benitez's W/ gastric bx for H.pylori W/ duodenal bx for celiac disease W/ TI and random colon bx If colonoscopies shows signs of Crohn's, we will require pre biologic labs and CT enterography Will consider gastric emptying study in the future Increase omeprazole to 40 mg b.i.d., 30-60 minutes before breakfast and dinner Okay to continue Pepcid 20 mg b.i.d. Use Compazine sparingly Continue Bentyl 20 mg every 6 hours as needed Continue ferrous sulfate 325 mg daily Notify GI if has sign/symptoms of bleeding and go to ER for evaluation GERD anti-reflux measures discussed and education provided Avoid tobacco and marijuana as much as possible ROSEMARY Garza [facility] [address], [address] [place] [address] Fax: [phone] ELIDA/Surjit Patient in agreement with plan of care as outlined above. Total time spent was 70 minutes: Preparing to see the patient (e.g., review of tests) Obtaining and/or reviewing separately obtained history Performing a medically appropriate examination and/or evaluation Counseling and educating the patient/family/caregiver Ordering medications, tests, or procedures ROSEMARY Garza 08/08/23 1056 documented in this encounter [facility] [employer] [facility] 08-08-2023 Instructions ROSEMARY Garza - 08/08/2023 10:00 AM EDT Labs Stool studies EGD and colonoscopy by Dr. Carreno - will obtain cardiac clearance prior Reach out to PCP to see if dose adjustments being made in diabetic medications the day prior and day of procedure Increase omeprazole to 40 mg twice daily, 30-60 minutes before breakfast and dinner Okay to continue Pepcid 20 mg twice daily Use Compazine sparingly Continue Bentyl 20 mg every 6 hours as needed Continue ferrous sulfate 325 mg daily Avoid tobacco and marijuana Follow-up 3-4 months after procedures with Dr. Carreno The following attachments cannot be sent through Care Everywhere.Upper GI Endoscopy ([place])Colonoscopy ([place])Acid reflux and gastroesophageal reflux disease in adults ([place])Acid Reflux and GERD in Adults Discharge Instructions ([place]ese)documented in this encounter [facility] 07-24-2023 History of Presen t illness Narrative Subjective Patient ID: Xiang Mahoney is a 32 y.o. female. Xiang presents today to recheck her diabetes and colitis. She is feeling better with her colitis. She finished her antibiotic. She did have 3 loose stools today but was constipated prior to that. She still has intermittent nausea but she his own Mounjaro and we are titrating up the dose. She is hoping to have foot surgery next month. They want her A1c under 8%. She would like to increase Mounjaro to 7.5 mg weekly. She also finished her potassium and magnesium supplements and would like those rechecked. The following portions of the patient's history were reviewed and updated as appropriate: allergies, current medications, past family history, past medical history, past social history, past surgical history, problem list, and medication reconciliation was completed including current medication and post discharge medication. Review of Systems Constitutional: Negative. HENT: Negative. Respiratory: Negative. Cardiovascular: Negative. Gastrointestinal: Positive for abdominal pain (Intermittent cramping), constipation and nausea. Negative for abdominal distention, diarrhea and vomiting. Genitourinary: Negative. Musculoskeletal: Positive for arthralgias. Neurological: Negative. Psychiatric/Behavioral: Negative. She did message me that the sample of Vraylar is really helping and she would like a refill. Objective Physical Exam Vitals reviewed. HENT: Head: Normocephalic. Cardiovascular: Rate and Rhythm: Normal rate and regular rhythm. Pulses: Normal pulses. Heart sounds: Normal heart sounds. Pulmonary: Effort: Pulmonary effort is normal. Breath sounds: Normal breath sounds. Abdominal: General: Bowel sounds are normal. There is no distension. Palpations: Abdomen is soft. There is no mass. Tenderness: There is no abdominal tenderness. Hernia: No hernia is present. Musculoskeletal: Cervical back: Neck supple. Neurological: General: No focal deficit present. Mental Status: She is alert. Psychiatric: Mood and Affect: Mood normal. Behavior: Behavior normal. Thought Content: Thought content normal. Judgment: Judgment normal. Assessment/Plan Xiang was seen today for 2-3 weeks follow up. Diagnoses and all orders for this visit: Type 2 diabetes mellitus with diabetic polyneuropathy, with long-term current use of insulin ([facility]) - tirzepatide (MOUNJARO) 7.5 mg/0.5 mL pen injector; Inject 7.5 mg under the skin every 7 days. Increase Mounjaro to 7.5 mg weekly. Hypokalemia - Comprehensive metabolic panel; Future Check potassium. Hypomagnesemia - Magnesium; Future Check magnesium Elevated LFTs - Comprehensive metabolic panel; Future Recheck LFTs is they were elevated in the hospital with her colitis. Colitis Symptoms are much better. I will renew Bentyl for p.r.n. use. Stools are more formed. Follow-up with specialist for a colonoscopy Other orders - dicyclomine (BENTYL) 20 mg tablet; Take 1 tablet (20 mg total) by mouth every 6 (six) hours as needed (abdominal cramping). - cariprazine (VRAYLAR) 1.5 mg capsule; Take 1 capsule (1.5 mg total) by mouth in the morning. Vraylar is helping so we will send in her prescription for her [facility] Miscellaneous Notes Saw MARLEY 05/16/23. Phoned Event monitor result to pt. (Benign). States needs clearance for foot tendon repair surgery by Dr Nevarez. No formal letter rec'd re surgery. Will need to hold ASA 5-7 days prior. Please review/ advise. Thanks. She has had 2 hospitalizations this month/dc'd on ATBs, and is to have a colonoscopy. Recent monitor was benign, and no further accelerated junctional rhythm. ECHO stable, and no noted CAD by CTA coronaries. If recovered from stays/completed colonoscopy, and no further syncope... Low risk, may hold ASA 5-7 days. jm LMOM for pt to return call to update condition [facility] 07-09-2023 Telephone encounter Note Saw MARLEY 05/16/23. Phoned Event monitor result to pt. (Benign). States needs clearance for foot tendon repair surgery by Dr Nevarez. No formal letter rec'd re surgery. Will need to hold ASA 5-7 days prior. Please review/ advise. Thanks. [facility] 07-09-2023 Telephone encounter Note She has had 2 hospitalizations this month/dc'd on ATBs, and is to have a colonoscopy. Recent monitor was benign, and no further accelerated junctional rhythm. ECHO stable, and no noted CAD by CTA coronaries. If recovered from stays/completed colonoscopy, and no further syncope... Low risk, may hold ASA 5-7 days. jm [facility] 07-09-2023 Telephone encounter Note LMOM for pt to return call to update condition [facility] 07-03-2023 History of Presen t illness Narrative Subjective Patient ID: Xiang Mahoney is a 32 y.o. female. Xiang presents for an hospital follow-up and recheck several problems. She was in the hospital for colitis. She went to the ER twice and was admitted the 2nd time. CT scan showed inflammation consistent with colitis. She was placed on 2 antibiotics. She is having trouble swallowing Flagyl. There is no coating on it and she spits it back out. She has not tried crushing it and putting in an food. Her nausea is better. She is not having any diarrhea. She has been on the Mounjaro for 3 months at 5 mg and that was not recently increased. She is still having a lot of problems with depression and bipolar disorder. She has not suicidal. The following portions of the patient's history were reviewed and updated as appropriate: allergies, current medications, past family history, past medical history, past social history, past surgical history, problem list, and medication reconciliation was completed including current medication and post discharge medication. Review of Systems Constitutional: Positive for unexpected weight change. Eyes: Negative. Respiratory: Negative. Cardiovascular: Positive for palpitations. Gastrointestinal: Positive for abdominal pain, diarrhea, nausea and vomiting. Improving Genitourinary: Positive for difficulty urinating (Neurogenic bladder). Musculoskeletal: Positive for arthralgias and back pain. Psychiatric/Behavioral: Positive for dysphoric mood. The patient is nervous/anxious. Objective Physical Exam Exam conducted with a developmental writing instructor present (sister). Constitutional: Appearance: She is morbidly obese. HENT: Head: Normocephalic. Cardiovascular: Rate and Rhythm: Normal rate and regular rhythm. Heart sounds: Normal heart sounds. Pulmonary: Effort: Pulmonary effort is normal. No respiratory distress. Breath sounds: Normal breath sounds. No wheezing, rhonchi or rales. Abdominal: General: Bowel sounds are normal. There is no distension. Palpations: Abdomen is soft. There is no mass. Tenderness: There is no abdominal tenderness. Hernia: No hernia is present. Musculoskeletal: Cervical back: Neck supple. Lymphadenopathy: Cervical: No cervical adenopathy. Skin: General: Skin is warm. Neurological: General: No focal deficit present. Mental Status: She is alert and oriented to person, place, and time. Psychiatric: Attention and Perception: Attention normal. Mood and Affect: Mood normal. Speech: Speech normal. Behavior: Behavior normal. Behavior is cooperative. Thought Content: Thought content normal. Cognition and Memory: Cognition normal. Judgment: Judgment normal. Assessment/Plan Xiang was seen today for follow-up. Diagnoses and all orders for this visit: Major depressive disorder, recurrent severe without psychotic features ([facility]) Will add Vraylar 1.5 mg daily and recheck in 2-3 weeks. Bipolar I disorder, single manic episode, severe, with psychosis ([facility]) Will add Vraylar 1.5 mg daily and recheck in 2-3 weeks. Colitis Continue antibiotics. She will need a colonoscopy when she is feeling better. Try crushing the Flagyl and putting it in food. Elevated LFTs Recheck LFTs with next labs Degenerative lumbar spinal stenosis Stable. Type 2 diabetes mellitus with diabetic polyneuropathy, with long-term current use of insulin ([facility]) Her fasting blood sugars were reviewed. They are coming down since she had her steroid burst in late May. Continue current regimen Accelerated junctional rhythm She is wearing heart monitor currently. Follow up with Cardiology documented in this encounter [facility] 06-25-2023 Miscellaneous Notes ----- Message from Abby Berg MD sent at 06/12/2023 2:20 PM EST ----- Do you mind following up with her in a week or so about the Dreamwear nasal mask in the interim to titration? Thank you! LVM to follow up with pt regarding Dreamwear nasal mask documented in this encounter [facility] 06-25-2023 Telephone encounter Note ----- Message from Abby Berg MD sent at 06/12/2023 2:20 PM EST ----- Do you mind following up with her in a week or so about the Dreamwear nasal mask in the interim to titration? Thank you! [facility] 06-25-2023 Telephone encounter Note LVM to follow up with pt regarding Dreamwear nasal mask [facility] 06-13-2023 Miscellaneous Notes Patient's appointment needs to be rescheduled at this time due to provider out of clinic. Called and left message Date: 06/15/23 Provider: Dr Urbina Rescheduling Instructions:next available in clinic 2nd attempt to reschedule an appointment Left message for patient to call back to reschedule an appointment. Please reschedule patient if we receive a call back. Received call today 06/18/23 11:22 from patient in regard to previous message and she rescheduled to soonest available with Dr. Urbina in [place] office on 11/09/23 8:30 and was added to wait list per her request. Informed her she can call our office a week before she runs out of medication and we can send message on to clinical staff for her request - she voiced understanding. documented in this encounter [facility] 06-13-2023 Telephone encounter Note Patient's appointment needs to be rescheduled at this time due to provider out of clinic. Called and left message Date: 06/15/23 Provider: Dr Urbina Rescheduling Instructions:next available in clinic [facility] 06-13-2023 Telephone encounter Note 2nd attempt to reschedule an appointment Left message for patient to call back to reschedule an appointment. Please reschedule patient if we receive a call back. [facility] 06-13-2023 Telephone encounter Note Received call today 06/18/23 11:22 from patient in regard to previous message and she rescheduled to soonest available with Dr. Urbina in [place] office on 11/09/23 8:30 and was added to wait list per her request. Informed her she can call our office a week before she runs out of medication and we can send message on to clinical staff for her request - she voiced understanding. [facility] 06-13-2023 Miscellaneous Notes 06/12 received CPAP order 06/13 Called PT LM to schedule sleep study. CPAP order and 06/12 Brinda notes in epic documented in this encounter [facility] 06-13-2023 Telephone encounter Note 06/12 received CPAP order 06/13 Called PT LM to schedule sleep study. CPAP order and 06/12 Brinda notes in epic [facility] 06-12-2023 History of Presen t illness Narrative Images from the original note were not included. INTERVAL HISTORY: Xiang Mahoney returns to the [facility] for follow up on 06/12/2023. She is a 32 y.o. female followed at the Sleep Clinic for TANYA, for which auto-CPAP 5-20 cm H2O was prescribed. At the time of the last visit in September 2022, the plan was to order a split night. Additional Interval History: She had a failed split night study done in February 2023 and was started on APAP with Oneyda recommended from lab mask fitting. Her study had to be rescheduled due to not being able to be let into the lab on her original date. She has had trouble compliantly using CPAP due to leak despite refitting to a smaller cushion causing panic attacks. She is now amenable to nasal mask refit. She is no longer taking Requip and only takes trazodone as needed as able to fall asleep easily. She continues to have daytime sleepiness. She often doesn't go to bed until 3a due to being in school but then her machine will not register use that day. She reports not having a compliance requirement to her awareness. [place] Sleepiness Scale: 10/03/2022 9:00 AM 06/12/2023 1:00 PM [place] Sleepiness Scale Sitting and Reading 2 2 Watching TV 3 3 Sitting inactive in a public place (theater, meeting) 1 1 As a passenger in a car for an hour without a break 3 3 Lying down in the afternoon to rest 3 3 Sitting and talking to someone 1 1 Sitting quietly after lunch (without alcohol) 3 2 In a car, while stopped for a few minutes in traffic 1 0 Total 17 15 PAST MEDICAL HISTORY: Patient Active Problem List Diagnosis Fibromyalgia Back pain, lumbosacral Deviated septum Chronic tonsillitis S/P tonsillectomy S/P nasal septoplasty Palpitations Shortness of breath Acute sinusitis PFO (patent foramen ovale) Obesity (BMI 30-39.9) Neuropathy Chronic migraine w/o aura, not intractable, w stat migr Osteoarthritis of lumbosacral spine Type 2 diabetes mellitus with diabetic polyneuropathy, with long-term current use of insulin ([facility]) Diabetic polyneuropathy associated with type 2 diabetes mellitus ([facility]) Chest pain Mixed hyperlipidemia Cigarette smoker Umbilical hernia Spondylopathy, unspecified Sciatica Lumbar post-laminectomy syndrome Lumbago with sciatica, right side Irritable bowel syndrome Internal derangement of left knee History of manic depressive disorder Hearing loss Posttraumatic stress disorder Generalized anxiety disorder Degenerative lumbar spinal stenosis Compulsive behavior Chronic maxillary sinusitis Chondromalacia patellae Bipolar disorder ([facility]) Bilateral sensorineural hearing loss Conductive hearing loss, bilateral Bilateral carpal tunnel syndrome Asthma Spondylolisthesis, acquired Arthritis of right knee Neurogenic bladder Obstructive sleep apnea syndrome Lightheadedness Syncope Arthropathy of lumbar facet joint Past Medical History: Diagnosis Date Anemia Anxiety Arrhythmia Asthma Bipolar 1 disorder ([facility]) Bipolar disorder, unspecified ([facility]) Cataract Chronic headache Chronic kidney disease kidney stone Chronic low back pain Dental disease edentulous Depression Diabetes mellitus type 2, controlled ([facility]) Fibromyalgia Folliculitis GERD (gastroesophageal reflux disease) Gestational diabetes mellitus (GDM) Hyperlipidemia Hypomagnesemia Moderate obstructive sleep apnea Neurogenic bladder Obesity Palpitations Paresthesia PFO (patent foramen ovale) PONV (postoperative nausea and vomiting) Prolonged emergence from general anesthesia Spinal stenosis Stroke ([facility]) Visual impairment glasses Past Surgical History: Procedure Laterality Date BACK SURGERY N/A 07/10/2016 Performed by Sue Vásquez MD at [facility] OR SECTION 2007 CHOLECYSTECTOMY 2007 POSTERIOR LAMINECTOMY / DECOMPRESSION LUMBAR SPINE 08/2014 REPAIR CSF LEAK CRANIAL REPAIR CSF LEAK CRANIAL REPAIR HERNIA UMBILICAL N/A 02/27/2020 Performed by Micha Leon MD at [facility] RESECTION SUBMUCOSAL Bilateral 06/13/2018 Performed by Natali Shea MD at [facility] SEPTOPLASTY N/A 06/13/2018 Performed by Natali Shea MD at [facility] TONSILLECTOMY ADENOIDECTOMY Bilateral 06/13/2018 Performed by Natali Shea MD at [facility] TUBAL LIGATION WOUND EXPLORATION 08/2014 ALLERGIES: Allergies Allergen Reactions Calder[place] Anaphylaxis Penicillins Anaphylaxis [place] Hives Ibuprofen Hives and Vomiting Amoxicillin Duricef [Cefadroxil] Nsaids (Non-Steroidal Anti-Inflammatory Drug) [place] Dye Verapamil Dizziness Dilaudid [Hydromorphone] Hives Vicodin [Hydrocodone-Acetaminophen] Hives MEDICATIONS: Current Outpatient Medications on File Prior to Visit Medication Sig Dispense Refill acetaminophen (TYLENOL EXTRA STRENGTH) 500 mg tablet Take 1 tablet (500 mg total) by mouth every 6 (six) hours as needed for pain. 30 tablet 0 albuterol (PROVENTIL HFA;VENTOLIN HFA) 90 mcg/actuation inhaler Inhale 2 puffs every 6 (six) hours as needed for wheezing. ALCOHOL PREP PADS pads, medicated aspirin 81 mg chewable tablet Chew 1 tablet (81 mg total) and swallow daily. 20 tablet 0 baclofen (LIORESAL) 10 mg tablet Take 1 tablet (10 mg total) by mouth 3 (three) times a day. busPIRone (BUSPAR) 30 mg tablet Take 0.999 tablets (30 mg total) by mouth in the morning and 0.999 tablets (30 mg total) before bedtime. 60 tablet 5 cetirizine (ZyrTEC) 10 mg tablet Take 1 tablet (10 mg total) by mouth in the morning. clindamycin (CLEOCIN T) 1 % lotion cyanocobalamin 1000 MCG tablet Take 1 tablet (1,000 mcg total) by mouth in the morning. escitalopram (LEXAPRO) 10 mg tablet Take 1 tablet (10 mg total) by mouth in the morning. 90 tablet 1 fenofibrate (TRICOR) 145 mg tablet Take 1 tablet (145 mg total) by mouth in the morning. ferrous sulfate 325 (65 FE) mg tablet Take 1 tablet (325 mg total) by mouth daily with breakfast. flash glucose sensor (FREESTYLE MAKSIM 2 SENSOR) kit 1 Unit by miscellaneous route every 14 (fourteen) days. 2 kit 5 FLOVENT HFA 44 mcg/actuation inhaler fluticasone propionate (FLONASE) 50 mcg/actuation nasal spray INSTILL ONE (1) SPRAY IN EACH NOSTRIL TWICE DAILY gabapentin (NEURONTIN) 600 mg tablet Take 1 tablet (600 mg total) by mouth 3 (three) times a day. 90 tablet 5 hydrOXYzine (VISTARIL) 50 mg capsule TAKE ONE (1) CAPSULE BY MOUTH TWICE DAILY NEEDED FOR PANIC insulin aspart U-100 (NovoLOG) 100 unit/mL (3 mL) insulin pen Check blood sugar 4 times per day 70-149 mg/dL=0 units. 150-199 mg/dL=2 units. 200-249 mg/dL=4 units. 250-299 mg/dL=6 units. 300-349 mg/dL=8 units. 350-400 mg/dL=10 units. Max 40 units per day 15 mL 0 lamoTRIgine (LaMICtal) 100 mg tablet Take 1 tablet (100 mg total) by mouth in the morning. 30 tablet 2 lidocaine (LIDODERM) 5 % Place 1 patch on the skin daily. Remove & Discard patch within 12 hours or as directed by MD 30 patch 0 montelukast (SINGULAIR) 10 mg tablet Take 1 tablet (10 mg total) by mouth nightly. multivitamin capsule Take 1 capsule by mouth in the morning. omeprazole (PriLOSEC) 40 mg capsule Take 1 capsule (40 mg total) by mouth daily. 30 capsule 2 ondansetron (ZOFRAN) 4 mg tablet Take 1 tablet (4 mg total) by mouth every 8 (eight) hours as needed for nausea or vomiting. tamsulosin (FLOMAX) 0.4 mg capsule Take 1 capsule (0.4 mg total) by mouth in the morning. TECHLITE PEN NEEDLE 32 gauge x 1/4 needle USE DIRECTED FOUR TIMES A DAY tirzepatide (MOUNJARO) 5 mg/0.5 mL pen injector Inject 5 mg under the skin every 7 days. Sundays traZODone (DESYREL) 50 mg tablet Take by mouth nightly as needed. No current facility-administered medications on file prior to visit. FAMILY HISTORY: Family History Problem Relation Age of Onset Asthma Mother Arthritis Mother Bipolar disorder Mother Depression Mother Diabetes Mother Hypertension Mother Hyperlipidemia Mother Ulcers Mother Alcohol abuse Father Ulcers Father Asthma Maternal Grandmother Arthritis Maternal Grandmother Migraines Maternal Grandmother COPD Maternal Grandmother Diabetes Maternal Grandmother Heart disease Maternal Grandmother Hypertension Maternal Grandmother Diabetes Maternal Grandfather SOCIAL HISTORY: Social History Socioeconomic History Marital status: Spouse name: Not on file Number of children: Not on file Years of education: Not on file Highest education level: Not on file Occupational History Not on file Tobacco Use Smoking status: Former Packs/day: 1.00 Years: 19.00 Additional pack years: 0.00 Total pack years: 19.00 Types: Cigarettes Start date: 06/23/2002 Quit date: 07/14/2022 Years since quittin.9 Smokeless tobacco: Never Vaping Use Vaping Use: Every day Substances: Nicotine, THC Devices: Disposable Substance and Sexual Activity Alcohol use: Yes Comment: rarely Drug use: Yes Types: Marijuana Comment: in vape Sexual activity: Yes Partners: Male control/protection: Surgical Other Topics Concern Coffee Not Asked Tea Not Asked Carbonated Beverages Not Asked Chocolate Not Asked Caffeine Use Yes Social History Narrative Not on file Social Determinants of Health Financial Resource Strain: Medium Risk (03/26/2023) Overall Financial Resource Strain (CARDIA) Difficulty of Paying Living Expenses: Somewhat hard Food Insecurity: No Food Insecurity (06/08/2023) Hunger Screening Food Insecurity - Worry: Never True Food Insecurity - Inability: Never True Recent Concern: Food Insecurity - Food Insecurity Present (03/26/2023) Hunger Screening Food Insecurity - Worry: Sometimes True Food Insecurity - Inability: Sometimes True Transportation Needs: Unmet Transportation Needs (03/26/2023) PRAPARE - Transportation Lack of Transportation (Medical): Yes Lack of Transportation (Non-Medical): Yes Physical Activity: Inactive (04/02/2023) Exercise Vital Sign Days of Exercise per Week: 0 days Minutes of Exercise per Session: 0 min Stress: Stress Concern Present (04/02/2023) [place] Citizen [place] [employer] Occupational [employer] - Occupational Stress Questionnaire Feeling of Stress : Rather much Social Connections: Moderately Isolated (04/02/2023) Social Connection and Isolation Panel [NHANES] Frequency of Communication with Friends and Family: More than three times a week Frequency of Social Gatherings with Friends and Family: More than three times a week Attends Hoahaoism Services: More than 4 times per year Active Member of Clubs or Organizations: No Attends Club or Organization Meetings: Never Marital Status: Interpersonal Safety: Not At Risk (04/02/2023) Humiliation, Afraid, Rape, and Kick questionnaire Fear of Current or Ex-Partner: No Emotionally Abused: No Physically Abused: No Sexually Abused: No Housing Instability: High Risk (03/26/2023) Housing Instability Housing Instability: Yes REVIEW OF SYSTEMS: Cardiovascular and pulmonary systems negative. Hot flashes. PHYSICAL EXAMINATION: BP 117/74 Pulse 90 Ht 180.3 cm (5' 11 ) Wt 121.1 kg (266 lb 14.4 oz) SpO2 97% BMI 37.22 kg/m General appearance: Obese, no acute distress. Eyes: no conjunctival erythema, no scleral icterus. Ears, Nose, Mouth and Throat: external ears unremarkable, external nose unremarkable, edentulous Neck: trachea position midline. Respiratory: respiratory effort normal Musculoskeletal: normal gait and station. Extremities: No c/c/e. Skin: No rash/ lesions/ulcers/ induration/subcutaneous nodules in visible regions. Neurologic: CN II-XII grossly intact. Mental Status: Cognitive: Alert and oriented x 3. Insight good. Judgment good. DATA: Lab Results Component Value Date WBC 8.0 06/06/2023 HGB 13.5 06/06/2023 HCT 40.0 06/06/2023 MCV 92 06/06/2023 PLT 378 06/06/2023 Lab Results Component Value Date FERRITIN 24 06/12/2022 Chemistry Component Value Date/Time K 3.7 06/06/2023 1417 CL 95 (L) 06/06/2023 1417 CO2 25 06/06/2023 1417 BUN 13 06/06/2023 1417 CREATININE 1.00 06/06/2023 1417 GLU 443 (HH) 06/06/2023 1614 GLU 468 (HH) 06/06/2023 1417 Component Value Date/Time CALCIUM 9.8 06/06/2023 1417 ALKPHOS 57 04/02/2023 1638 AST 26 04/02/2023 1638 AST 37 06/10/2021 1200 ALT 64 (H) 04/02/2023 1638 ALT 50 (H) 06/10/2021 1200 Lab Results Component Value Date TSH 1.11 05/22/2023 Echo complete W/O contrast Result Date: 06/07/2023 Left Ventricle: Systolic function is normal with an ejection fraction of 55-60%. The quantitative EF by 2D Kenney biplane is 62%. Normal diastolic function is present. Lateral E' is 11.90 cm/s. Medial E' is 8.49 cm/s. PAP data card download 03/25/23 - 06/11/23 AirSense 11 AutoSet 6-20 6.8 9.6 10.5 Percent days with device use =9% Average use: 3 hours 41 minutes per day Percent days with use >=4 hours: 4% Average AHI = 1.2 Average time in large leak/day = hr min seconds 95th percentile leak = 9.1 L/min ASSESSMENT: Ms. Mahoney is a 32 y.o. female with medical problems as above, [facility] for: Obstructive sleep apnea (Feb 2023 AHI=25/5, Min O2=84%) treated with APAP 5-20 cm of water with noncompliance related to mask fit issues / claustrophobia Daytime sleepiness, likely contributed to by #1 but also potentially delayed sleep phase type vs insufficient sleep opportunity History of narcolepsy with cataplexy, although diagnosed when sleep deprived as teen mom?, currently on trazodone PRN PLMS, previously on Requip Diabetic neuropathy History of back surgery History of TIA and PFO Edentulous History of tobacco use disorder now vaping including cannabis Hot flashes Obesity class II RECOMMENDATIONS: I reviewed her failed PSG and download with her. I encouraged improved compliance with PAP. She has mask fit issues with Oneyda hybrid, and claustrophobia. I have recommended nasal mask refit, and gave her a small/medium Dreamwear nasal. I will have our office RPSGT follow up with her in the interim to titration (ordered if needed). We also discussed PAP NAP, referral to behavioral sleep medicine for PAP desensitization, short term hypnotic use. I encouraged regular follow up with her primary care physician and other specialists for preventative and otherwise indicated health screening as well as management of comorbid medical conditions. I advise maintenance of a normal body weight, and support annual flu and COVID vaccination. Call if problems/questions arise prior to follow up Follow up in 1.5 month(s) EDUCATION: Risks of untreated obstructive sleep apnea were reviewed. Driving precautions were reviewed. I advised the patient not to drive if sleepy, and to hook puller if sleepiness occurs while driving. Above plan as discussed with the patient who acknowledged understanding and agreement. Abby Berg MD [facility] [address] [place] [id number] documented in this encounter [facility] 06-08-2023 History of Presen t illness Narrative Subjective Patient ID: Xiang Mahoney is a 32 y.o. female. Jasen presents today for an ER follow-up. She was in the emergency room recently for elevated blood glucose levels. It was reading high on her meter. She was asymptomatic. Six days earlier she was in the emergency room for bronchitis and was put on steroids. She is taking her Mounjaro 5 mg once a week. She has been nauseated with it so her appetite is down. She has been losing weight so she is happy about that. The emergency room put her on short-acting insulin to try to get it down. They gave her a sliding scale to follow. Her blood sugars have been running in the 300s for the most part over the last day or so. She eats about 2 meals a day. He she usually skips breakfast. She is looking into a nutritional supplement that her weight loss recommended but she does not have it yet. She needs several of her psychiatric medicines refilled. She has no new psychiatric concerns today. The following portions of the patient's history were reviewed and updated as appropriate: allergies, current medications, past family history, past medical history, past social history, past surgical history, problem list, and medication reconciliation was completed including current medication and post discharge medication. Review of Systems Constitutional: Positive for appetite change and unexpected weight change. Respiratory: Negative. Cardiovascular: Negative. Gastrointestinal: Negative. Psychiatric/Behavioral: Negative. Objective Physical Exam Exam conducted with a developmental writing instructor present (Boyfriend). Constitutional: General: She is not in acute distress. Appearance: She is obese. She is not ill-appearing. HENT: Head: Normocephalic. Cardiovascular: Rate and Rhythm: Normal rate and regular rhythm. Pulses: Normal pulses. Heart sounds: Normal heart sounds. Pulmonary: Effort: Pulmonary effort is normal. No respiratory distress. Breath sounds: Normal breath sounds. No wheezing, rhonchi or rales. Neurological: General: No focal deficit present. Mental Status: She is alert and oriented to person, place, and time. Psychiatric: Attention and Perception: Attention normal. Mood and Affect: Mood and affect normal. Speech: Speech normal. Behavior: Behavior normal. Behavior is cooperative. Thought Content: Thought content normal. Cognition and Memory: Cognition normal. Judgment: Judgment normal. Assessment/Plan Xiang was seen today for diabetes. Diagnoses and all orders for this visit: Type 2 diabetes mellitus with diabetic polyneuropathy, with long-term current use of insulin ([facility]) - flash glucose sensor (FREESTYLE MAKSIM 2 SENSOR) kit; 1 Unit by miscellaneous route every 14 (fourteen) days. I ordered her new sensors for her freestyle to Maksim. In addition to the sliding scale at want her to take 10 units of the short-acting insulin prior to every meal in addition to the sliding scale coverage. If she has not going to eat a meal she should take her sliding scale coverage. So if she is going to skip breakfast in the morning she should still take insulin based on the sliding scale. Hyperglycemia I think her hyperglycemia is likely due to the steroid burst that she had an should come down in a matter of time. We need to titrate up her Mounjaro to her maximally tolerated dose. Other orders - busPIRone (BUSPAR) 30 mg tablet; Take 0.999 tablets (30 mg total) by mouth in the morning and 0.999 tablets (30 mg total) before bedtime. - lamoTRIgine (LaMICtal) 100 mg tablet; Take 1 tablet (100 mg total) by mouth in the morning. documented in this encounter [facility] 06-06-2023 Evaluation note Encounter Date Diagnosis Assessment Notes May, Obesity, Class II, BMI 35-39.9 (ICD-10 - E66.01) Consultation date 12-27-2022, weight (pounds): 271 Follow-up date 03-27-2023, weight (pounds): 271.2 Follow-up date 06-06-2023, weight (pounds): 268.5 -Discussed treatment options including lifestyle interventions and use of medications as an adjunct to amplify adherence to healthy behavior change-Discussed benefits, risks and side effects of medication. She would like to continue with medicationOrders:-Hannah ent reports recent A1c of between 7.5 to 7.9% -Given poor response Trulicity, recommend switch to Mounjaro -She states she tolerated Mounjaro 5 mg well for the first month but insurance required prior authorization prior to refill and this caused gap in treatment plan. She recently resumed Mounjaro 5 mg 2 weeks ago -She was recently started on prednisone for bronchitis and this has caused hyperglycemia and associated symptoms of polyuria, polydipsia -Recommend ER evaluation at [facility]. She declined and would like to be evaluated closer to home -Offered to decrease dose to 2.5 mg once weekly given recent symptoms. Patient declined and would like to continue 5 mg once weekly -She is mother of 4, in school for bachelor's degree-Follow up in clinic in 8 weeksThis note was created with voice recognition software. 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 May, Dietary surveillance and counseling (ICD-10 - Z71.3) Discussed in detail high-protein, high-fiber, low-fat nutrition plan favoring calorie deficit and lean tissue mass preservation.-Patient with poor dentition and this limits food choices May, Exercise counseling (ICD-10 - Z71.89) Absolute HGS at time of consultation (pounds): 28.8Absolute HGS at time of follow-up (pounds): 43.8 Discussed in detail exercise interventions to promote lean tissue mass preservation during calorie restriction. May, Type 2 diabetes mellitus (ICD-10 - E11.9) A1c 10.8% May 2021 Discussed risk and benefit of medication. Patient would like to continue Mounjaro 5 mg May, Dyslipidemia (ICD-10 - E78.5) Potential history of hypertriglyceridemia induced pancreatitis at early age given patient report Explained side effects of incretin emetics include risk of pancreatitis. She understands and would like to continue pharmacotherapy May, Bipolar affective disorder (ICD-10 - F31.9) Avoid phentermine May, TANYA (obstructive sleep apnea) (ICD-10 - G47.33) Using CPAP on occasion May, Increased liver enzymes (ICD-10 - R74.8) FibroScan performed on 01-11-2023 showing steatosis score of 322 and fibrosis score of 4.0 Discussed results with patient May, Other 48 minutes was spent reviewing patient specific healthcare information, interviewing, counseling, and communicating with the patient, and documenting clinical information. [facility] Other 01-03-2024 Evaluation note* Encounter Date Diagnosis Assessment Notes Treatment Notes Treatment Clinical Notes May, Type 2 diabetes mellitus (ICD-10 - E11.9) [facility] Other 12-27-2023 History of Present illness Narrative* ROSEMARY Shelton - 05/16/2023 3:55 PM EST Xiang Mahoney Date of visit: 05/16/2023 Date of : 1990 Age: 32 y.o. Patient Active Problem List Diagnosis Fibromyalgia Back pain, lumbosacral Deviated septum Chronic tonsillitis S/P tonsillectomy S/P nasal septoplasty Palpitations Shortness of breath Acute sinusitis PFO (patent foramen ovale) Obesity (BMI 30-39.9) Neuropathy Chronic migraine w/o aura, not intractable, w stat migr Osteoarthritis of lumbosacral spine Type 2 diabetes mellitus with diabetic polyneuropathy, with long-term current use of insulin ([facility]) Diabetic polyneuropathy associated with type 2 diabetes mellitus ([facility]) Chest pain Mixed hyperlipidemia Cigarette smoker Umbilical hernia Spondylopathy, unspecified Sciatica Lumbar post-laminectomy syndrome Lumbago with sciatica, right side Irritable bowel syndrome Internal derangement of left knee History of manic depressive disorder Hearing loss Posttraumatic stress disorder Generalized anxiety disorder Degenerative lumbar spinal stenosis Compulsive behavior Chronic maxillary sinusitis Chondromalacia patellae Bipolar disorder ([facility]) Bilateral sensorineural hearing loss Conductive hearing loss, bilateral Bilateral carpal tunnel syndrome Asthma Spondylolisthesis, acquired Arthritis of right knee Neurogenic bladder Obstructive sleep apnea syndrome Lightheadedness Syncope Allergies Allergen Reactions Calderón Anaphylaxis Penicillins Anaphylaxis [place] Hives Ibuprofen Hives and Vomiting Amoxicillin Duricef [Cefadroxil] Nsaids (Non-Steroidal Anti-Inflammatory Drug) [place] Dye Verapamil Dizziness Dilaudid [Hydromorphone] Hives Vicodin [Hydrocodone-Acetaminophen] Hives Current Outpatient Medications Medication Sig Dispense Refill acetaminophen (TYLENOL EXTRA STRENGTH) 500 mg tablet Take 1 tablet (500 mg total) by mouth every 6 (six) hours as needed for pain. 30 tablet 0 albuterol (PROVENTIL HFA;VENTOLIN HFA) 90 mcg/actuation inhaler Inhale 2 puffs every 6 (six) hours as needed for wheezing. ALCOHOL PREP PADS pads, medicated aspirin 81 mg chewable tablet Chew 1 tablet (81 mg total) and swallow daily. 20 tablet 0 busPIRone (BUSPAR) 30 mg tablet Take 1 tablet (30 mg total) by mouth in the morning and 1 tablet (30 mg total) before bedtime. cyanocobalamin 1000 MCG tablet Take 1 tablet (1,000 mcg total) by mouth in the morning. escitalopram (LEXAPRO) 10 mg tablet Take 1 tablet (10 mg total) by mouth in the morning. fenofibrate (TRICOR) 145 mg tablet Take 1 tablet (145 mg total) by mouth in the morning. ferrous sulfate 325 (65 FE) mg tablet Take 1 tablet (325 mg total) by mouth daily with breakfast. gabapentin (NEURONTIN) 600 mg tablet Take 1 tablet (600 mg total) by mouth 3 (three) times a day. 90 tablet 5 hydrOXYzine (VISTARIL) 50 mg capsule TAKE ONE (1) CAPSULE BY MOUTH TWICE DAILY NEEDED FOR PANIC lamoTRIgine (LaMICtal) 25 mg tablet Take 2 tablets (50 mg total) by mouth in the morning. lidocaine (LIDODERM) 5 % Place 1 patch on the skin daily. Remove & Discard patch within 12 hours or as directed by MD 30 patch 0 montelukast (SINGULAIR) 10 mg tablet Take 1 tablet (10 mg total) by mouth nightly. multivitamin capsule Take 1 capsule by mouth in the morning. omeprazole (PriLOSEC) 40 mg capsule Take 1 capsule (40 mg total) by mouth daily. 30 capsule 2 ondansetron (ZOFRAN) 4 mg tablet Take 1 tablet (4 mg total) by mouth every 8 (eight) hours as needed for nausea or vomiting. tamsulosin (FLOMAX) 0.4 mg capsule Take 1 capsule (0.4 mg total) by mouth in the morning. tirzepatide (MOUNJARO) 5 mg/0.5 mL pen injector Inject 5 mg under the skin every 7 days. Sundays traZODone (DESYREL) 50 mg tablet Take by mouth nightly as needed. baclofen (LIORESAL) 10 mg tablet Take 1 tablet (10 mg total) by mouth 3 (three) times a day. (Patient not taking: Reported on 05/16/2023) cetirizine (Children's ZyrTEC Allergy) 10 mg tablet,disintegrating Dissolve 2 capsules on tongue. (Patient not taking: Reported on 05/16/2023) No current facility-administered medications for this visit. Chief Complaint Patient presents with Follow-up Hyperlipidemia History of Present Illness I am working in collaboration with Dr. Courtney, who is readily available in the office. Ms. Mahoney is here for preoperative assessment for a fusion of her right foot, scheduled for May [address] Nevarez. She is accompanied today by her sister. This is my 1st time meeting her. She normally follows at the [place] office. She is a 32-year-old with a history of a PFO. Hyperlipidemia. Lum-rimykbm-sdjqmoxtr type 2 diabetic. Cigarette smoker. Asthma. Obesity. She tells me around Thanksgiving she started having more issues with lightheadedness and dizziness,and palpitations. When she has had her blood pressure checked she states her heart rate shows that she is in the 40s at times. She has had 2 syncopal episodes, 1 occurred after she was in the shower, the other occurred after she finish shopping in [employer], and was getting into the van. She states the palpitations hurt her chest, and the lightheadedness follows. She denies shortness of breath. She states her blood sugars been low, or higher than 200. She feels she drinks 48-64 oz of fluid a day. She denies PND, orthopnea, or edema. ECHO: 04/27/2021 Left Ventricle Left ventricle appears normal in size. Membrane present in apex of left ventricle. There is mild concentric increased wall thickness/hypertrophy. Systolic function is normal with an ejection fraction of 55-60%. No obvious regional wall motion abnormalities. Normal diastolic function is present. Lateral E' is 10.70 cm/s. Medial E' is 7.83 cm/s. Right Ventricle Right ventricular size appears normal. Systolic function is normal. Normal tricuspid annular plane systolic excursion. Normal systolic excursion velocity by TDI (>9.5 cm/s). Left Atrium Left atrium is normal in size. Left atrium volume index is normal. The left atrial volume index is 19.2 mL/m2. The pulmonary veins have normal venous flow. Agitated saline bubble study reveals evidence of right to left interatrial shunting Agitated saline bubble study and imaging reveals probable PFO . Right Atrium Right atrium is normal in size. The right atrial area is 17.0 cm2. Aortic Valve The aortic valve is trileaflet. There is no regurgitation or stenosis. Mitral Valve The leaflets are mildly thickened. There is trace regurgitation. There is no evidence of mitral valve stenosis. Tricuspid Valve Tricuspid valve appears to be normal. There is trace regurgitation. There is no evidence of tricuspid valve stenosis. Pulmonic Valve The pulmonic valve was not well visualized. There is no evidence of pulmonic valve stenosis. Ascending Aorta The aortic root is normal in size. IVC/SVC IVC is not well visualized. Pericardium Pericardium was not well visualized. The pericardium has a fat pad. STRESS: Nuc stress Lexiscan Result Date: 12/22/2021 No ECG evidence of ischemia. Myocardial perfusion imaging reveals evidence of a moderate size, mildintensity reversible anterolateral perfusion defect consistent with ischemia. There is significant artifact limiting the interpretation of the inferior wall perfusion. Overall this is felt to be an in termediate risk study. CTA CORONARIES: Enhanced CTA of the coronary arteries: Left main, LAD, circumflex, and right coronary artery are unremarkable and show no obstructing plaques. Impression: * Unremarkable coronary arteries. No stenosis or plaque identified. The coronary arteries and cardiac structures were co-interpreted by Dr. Jono Cruz of the department of radiology and Dr.Mohamed Knowles of department of cardiology. The extracardiac structures including the lungs were solely interpreted by Dr. Jono Cruz of the department of radiology. All CT scans at this facility use dose modulation, iterative reconstruction, and/or weight based dosing when appropriate to reduce radiation dose to as low as reasonably achievable. Finalized by Jono Cruz MD on 02/24/2022 3:51 PM HOLTER: No results found. CARDIAC CATH: No results found. CAROTID: No results found. CXR: @CXR24@ EKG: Normal sinus rhythm, no acute ST or T-wave changes. LABORATORY CBC: Lab Results Component Value Date WBC 8.9 06/12/2022 HGB 13.2 06/12/2022 HCT 40.5 06/12/2022 MCV 90 06/12/2022 PLT 303 06/12/2022 BMP: Lab Results Component Value Date SODIUM 137 05/07/2023 K 3.7 05/07/2023 CL 105 05/07/2023 CO2 24 05/07/2023 BUN 11 05/07/2023 CREATININE 0.83 05/07/2023 GLU 120 (H) 05/07/2023 MG 1.8 01/28/2022 PT/INR: Lab Results Component Value Date INR 1.0 01/10/2022 APTT: No results found for: APTT D Dimer: Lab Results Component Value Date DDIMER 162 12/05/2021 Troponin I Lab Results Component Value Date TROPONINI 0.01 01/10/2022 ProBNP No results found for: NTBNP Lipid Panel: Lab Results Component Value Date CHOL 190 04/02/2023 TRIG 154 (H) 04/02/2023 HDL 43 04/02/2023 Liver Panel: No results found for: ALB HgA1C: Lab Results Component Value Date HGBA1C 7.6 (H) 03/19/2023 Past Medical History: Diagnosis Date Anemia Anxiety Arrhythmia Asthma Bipolar 1 disorder ([facility]) Bipolar disorder, unspecified ([facility]) Cataract Chronic headache Chronic kidney disease kidney stone Chronic low back pain Dental disease edentulous Depression Diabetes mellitus type 2, controlled ([facility]) Fibromyalgia Folliculitis GERD (gastroesophageal reflux disease) Gestational diabetes mellitus (GDM) Hyperlipidemia Hypomagnesemia Moderate obstructive sleep apnea Neurogenic bladder Obesity Palpitations Paresthesia PFO (patent foramen ovale) PONV (postoperative nausea and vomiting) Prolonged emergence from general anesthesia Spinal stenosis Stroke ([facility]) Visual impairment glasses No data recorded No data recorded No data recorded Past Surgical History: Procedure Laterality Date BACK SURGERY N/A 07/10/2016 Performed by Sue Vásquez MD at [facility] OR SECTION 2006 CHOLECYSTECTOMY 2007 POSTERIOR LAMINECTOMY / DECOMPRESSION LUMBAR SPINE 08/2014 REPAIR CSF LEAK CRANIAL REPAIR CSF LEAK CRANIAL REPAIR HERNIA UMBILICAL N/A 02/27/2020 Performed by Micha Leon MD at [facility] RESECTION SUBMUCOSAL Bilateral 06/13/2018 Performed by Natali Shea MD at [facility] SEPTOPLASTY N/A 06/13/2018 Performed by Natali Shea MD at [facility] TONSILLECTOMY ADENOIDECTOMY Bilateral 06/13/2018 Performed by Natali Shea MD at [facility] TUBAL LIGATION WOUND EXPLORATION 08/2014 Family History Problem Relation Age of Onset Asthma Mother Arthritis Mother Bipolar disorder Mother Depression Mother Diabetes Mother Hypertension Mother Hyperlipidemia Mother Ulcers Mother Alcohol abuse Father Ulcers Father Asthma Maternal Grandmother Arthritis Maternal Grandmother Migraines Maternal Grandmother COPD Maternal Grandmother Diabetes Maternal Grandmother Heart disease Maternal Grandmother Hypertension Maternal Grandmother Diabetes Maternal Grandfather Social History Socioeconomic History Marital status: Spouse name: Not on file Number of children: Not on file Years of education: Not on file Highest education level: Not on file Occupational History Not on file Tobacco Use Smoking status: Former Packs/day: 1.00 Years: 19.00 Additional pack years: 0.00 Total pack years: 19.00 Types: Cigarettes Start date: 06/23/2002 Quit date: 07/14/2022 Years since quittin.8 Smokeless tobacco: Never Vaping Use Vaping Use: Every day Substances: Nicotine, THC Devices: Disposable Substance and Sexual Activity Alcohol use: Yes Comment: rarely Drug use: Yes Types: Marijuana Comment: in vape Sexual activity: Yes Partners: Male control/protection: Surgical Other Topics Concern Coffee Not Asked Tea Not Asked Carbonated Beverages Not Asked Chocolate Not Asked Caffeine Use Yes Social History Narrative Not on file Social Determinants of Health Financial Resource Strain: Medium Risk (03/26/2023) Overall Financial Resource Strain (CARDIA) Difficulty of Paying Living Expenses: Somewhat hard Food Insecurity: No Food Insecurity (05/16/2023) Hunger Screening Food Insecurity - Worry: Never True Food Insecurity - Inability: Never True Recent Concern: Food Insecurity - Food Insecurity Present (03/26/2023) Hunger Screening Food Insecurity - Worry: Sometimes True Food Insecurity - Inability: Sometimes True Transportation Needs: Unmet Transportation Needs (03/26/2023) PRAPARE - Transportation Lack of Transportation (Medical): Yes Lack of Transportation (Non-Medical): Yes Physical Activity: Inactive (04/02/2023) Exercise Vital Sign Days of Exercise per Week: 0 days Minutes of Exercise per Session: 0 min Stress: Stress Concern Present (04/02/2023) [place] Citizen [place] [employer] Occup[employer] - Occupational Stress Questionnaire Feeling of Stress : Rather much Social Connections: Moderately Isolated (04/02/2023) Social Connection and Isolation Panel [NHANES] Frequency of Communication with Friends and Family: More than three times a week Frequency of Social Gatherings with Friends and Family: More than three times a week Attends Hoahaoism Services: More than 4 times per year Active Member of Clubs or Organizations: No Attends Club or Organization Meetings: Never Marital Status: Interpersonal Safety: Not At Risk (04/02/2023) Humiliation, Afraid, Rape, and Kick questionnaire Fear of Current or Ex-Partner: No Emotionally Abused: No Physically Abused: No Sexually Abused: No Review of Systems Review of Systems Constitutional: Negative for chills, fever, weight gain and weight loss. HENT: Negative for nosebleeds. Eyes: Negative for blurred vision and double vision. Vascular: Negative for asymmetric leg edema, claudication, lower extremity wounds or ulcers and varicose veins. Respiratory: Negative for cough, shortness of breath and wheezing. Hematologic/Lymphatic: Negative for bleeding problem. Does not bruise/bleed easily. Skin: Negative for color change and rash. Musculoskeletal: Positive for joint swelling. Negative for muscle weakness. Gastrointestinal: Negative for change in bowel habit and hematochezia. Genitourinary: Negative for hematuria. Neurological: Positive for dizziness, headaches, light-headedness and loss of balance. Negative fornumbness and tremors. Psychiatric/Behavioral: The patient is not nervous/anxious. Allergic/Immunologic: Negative for environmental allergies. CARDIOVASCULAR: Please review HPI. Physical Examination General appearance: Alert, oriented and cooperative. In no acute distress. Skin: Warm and dry to touch. Head: Normocephalic, without obvious abnormality, atraumatic. Ears, Nose, Mouth, Throat: Deferred Eyes: Conjunctivae unremarkable, EOM intact. Neck: No JVD, No carotid bruit. Neck supple, trachea midline. Respiratory: Clear to auscultation bilaterally, no use of accessory muscles. Cardiovascular: RRR with normal S1 and S2 with no murmurs. Gastrointestinal: Obese Musculoskeletal: No peripheral edema. Neurologic: Oriented to time, person and place, affect appropriate. No focal/major motor defects noted. Psychiatric: Appropriate mood, memory and judgement. VITAL SIGNS: BP 92/58 Pulse 86 Ht 182.2 cm (5' 11.75 ) LMP 05/04/2023 (Exact Date) BMI 38.65 kg/m No orders of the defined types were placed in this encounter. There are no discontinued medications. IMPRESSIONS/PLAN 1. PFO (patent foramen ovale) Increase issues with lightheadedness dizziness, and reported syncopal episodes. One was witnessed, and reportedly was out for a minute or so. Check echo. - Wireless Telemetry (In Office); Future - Echo complete W/O contrast; Future 2. Mixed hyperlipidemia Fenofibrate. Managed by her PCP. - Echo complete W/O contrast; Future 3. Cigarette smoker Smoking cessation encouraged. - Echo complete W/O contrast; Future 4. Palpitations - Wireless Telemetry (In Office); Future - Magnesium; Future - Thyroid profile includes TSH FT4; Future - Echo complete W/O contrast; Future 5. Lightheadedness - Wireless Telemetry (In Office); Future - Vas carotid duplex bilateral; Future 6. Syncope, unspecified syncope type Increase in palpitations, reports of bradycardia, lightheadedness and dizziness, and a couple syncopal episodes. She states these events occur every week couple weeks. Holter monitor on her for 7 days ordered. She has had recent lab work. Hemoglobin/hematocrit, platelet, BUN/creatinine, potassium within normal limits. Check magnesium, and thyroid panel. - Echo complete W/O contrast; Future - Vas carotid duplex bilateral; Future - Holter monitor 7 days; Future Office follow-up 2-4 weeks. She verbalizes her understanding, and agreement with this plan. This note was created with the assistance of a speech recognition program. While intending to generate a timely document that accurately reflects the content of the visit, no guarantee can be provided that every grammatical or spelling mistake has been or will be identified or corrected. Thank you for your understanding. TODAYS ORDERS Orders Placed This Encounter Procedures Magnesium Thyroid profile includes TSH FT4 Wireless Telemetry (In Office) Holter monitor 3-5 days Echo complete W/O contrast FOLLOW UP Return for 2-4 weeks. PCP: King Robles DO Referring Physician: No referring provider defined for this encounter. ROSEMARY Shelton 05/16/23 1634 documented in [facility]Br[facility]12-27-2023 Instructions* Patient Instructions* ROSEMARY Shelton - 05/16/2023 3:55 PM EST Risk factor modifications discussed: Low sodium or DASH diet Mediterranean diet Diabetic diet if indicated, and decrease carbohydrates Regular aerobic exercise for 30 minutes most days of the week discussed with pt Smoking cessation, or maintain smoking cessation Weight loss if indicated for BMI>30 LOW-SODIUM DIET The average Ukrainian consumes about 1 -2 teaspoons of salt every day, 6 - 18 grams, and most of this salt is added at the table. You body needs only about .5 gms of salt a day. Since most foods that come from animals (meat, poultry, fish,eggs, milk)are naturally high in sodium, your body's requirements are easily met without adding salt to your food. What is the difference between salt and sodium? Sodium keeps the right amount of water in your body, so some is necessary for good health. However, too much sodium causes varun retntion, which raises your blood pressure. It may take a little time to get used to a low-sodium diet, particularly if you are accustomed to eating highly salted foods. Start by eliminating salt from the table. Use spices and herbs that contain no sodium to add flavor. Many packaged and processed foods are now marketed as low sodium, including cheeses, luncheon meats, canned and packaged food, and even snacks such as potato chips. However, beware if the package reads reduced sodium ; the sodium content may still be too high. If you are not sure of a product, read the ingredients carefully and look for the words salt, sodium, soda, baking powder, monosodium glutamate(MSG),and disodium phosphate . If you are still in doubt, DO NOT EAT IT. Here are some tips for eliminating the hidden sodium from your diet: 1. Avoid cured or smoked meat, poultry, or fish. These include ham, sesay, corned beef, regular luncheon meats, sausage, commercially frozen fish, canned fish packed in oil or bine, and canned shellfish. 2. Avoid frozen, canned, and dehydrated main dish foods such as pizza, TV dinners, spaghetti, chili, stews and soups. 3. Avoid canned vegetables and vegetable juices. 4. Avoid cheese, buttermilk, and cocoa mixes. 5. Avoid commercial sauces (catsup, chili suace, stak sauce, soy sauce), mayonnaise, salad dressing, olives, pickles, meat tenderizers, and seasoning salts. Major Aspects of the Mediterranean Diet * Getting plenty of exercise * Eating primarily plant-based foods, such as fruits and vegetables, whole grains, legumes and nuts * Replacing butter with healthy fats such as olive oil and canola oil * Using herbs and spices instead of salt to flavor foods * Limiting red meat to no more than a few times a month * Eating fish and poultry at least twice a week * Drinking red wine in moderation (optional) Fruits, vegetables, nuts and grains The Mediterranean diet traditionally includes fruits, vegetables, pasta and rice Nuts are another part of a healthy Mediterranean diet. Nuts are high in fat approximately 80 percent of their calories come from fat), but most of the fat is not saturated. Because nuts are high in calories, they should not be eaten in large amounts generally no more than a handful a day. For the best nutrition, avoid candied or honey-roasted and heavily salted nuts. Grains in the Mediterranean region are typically whole grain and usually contain very few unhealthytrans fats. Throughout the Mediterranean region, bread is eaten plain or dipped in olive oil not eaten with butter or margarines, which contain saturated or trans fats. Healthy fats The Mediterranean diet discourages saturated fats and hydrogenated oils (trans fats), both of whichcontribute to heart disease. The Mediterranean diet features olive oil as the primary source of fat. [place] oil provides monounsaturated fat a type of fat that can help reduce LDL cholesterol levels when used in place of saturated or trans fats. Extra-virgin and virgin olive oils the least proces sed forms also contain the highest levels of the protective plant compounds that provide antioxidant effects. Monounsaturated fats and polyunsaturated fats, such as canola oil and some nuts, contain the beneficial linolenic acid (a type of omega-3 fatty acid). [place]-3 fatty acids lower triglycerides. Fatty fish such as mackerel, granados trout, hurley, sardines, albacore tuna and salmon are rich sources of omega-3 fatty acids. Wine The health effects of alcohol have been debated for many years, and some doctors are reluctant to encourage alcohol consumption because of the health consequences of excessive drinking. However, alcohol in moderation has been associated with a reduced risk of heart disease in some research studies. The Mediterranean diet typically includes a moderate amount of wine. This means no more than 5 ounces (148 ml) of wine daily for women (or men over age 65), and no more than 10 ounces (296 ml) of wine daily for men under age 65. More than this may increase the risk of health problems, including increased risk of certain types of cancer. If you're unable to limit your alcohol intake to the amounts defined above, if you have a personal or family history of alcohol abuse, or if you have heart or liver disease, refrain from drinking wine or any other alcohol. Also keep in mind that red wine may trigger migraines in some people. Summary Eat your veggies and fruits and switch to whole grains. An abundance and variety of plant foods should make up the majority of your meals. They should be minimally processed, and try to purchase themwhen they're in season. Strive for 7 to 10 servings a day of veggies and fruits. Switch to whole-grain bread and cereal, and begin to eat more whole-grain rice and pasta products. Keep baby carrots, apples and bananas on hand for quick, satisfying snacks. Go nuts. Keep almonds, cashews, pistachios and walnuts on hand for a quick snack. Choose natural peanut butter, rather than the kind with hydrogenated fat added. Pass on the butter. Try olive or canola oil as a healthy replacement for butter or margarine. Use it in cooking. After cooking pasta, add a touch of olive oil, some garlic and green onions for flavoring. Dip bread in flavored olive oil or lightly spread it on whole-grain bread for a tasty alternative to butter. Spice it up. Herbs and spices make food tasty and are also rich in health- promoting substances. Season your meals with herbs and spices rather than salt. Go fish. Eat fish once or twice a week. Fresh or water-packed tuna, salmon, trout, mackerel and hurley are healthy choices. Grilled fish tastes good and requires little cleanup. Avoid fried fish, unless it's sauteed in a small amount of canola oil. Limit red meat. Substitute fish and poultry for red meat. When eaten, make sure it's lean and keep portions small (about the size of a deck of cards). Also avoid sausage, sesay and other high-fat meats. Choose low-fat dairy. Limit higher fat dairy products such as whole or 2 percent milk, cheese and ice cream. Switch to skim milk, fat-free yogurt and low-fat cheese. Reference: www.[employer] For more tips on the Mediterranean Diet see: http://www.[employer].com Mediterranean diet for hearthealth * Attachments The following attachments cannot be sent through Care Everywhere. * Quitting smoking ([place]) [facility] [employer] [id number] NoteXR CHEST 2 VWS Clinical history: Preoperative evaluation, asthma. History of smoking. Comparisons: 12/05/2021 through 07/10/2022. Findings: 2 views of the chest obtained. Heart size and pulmonary vasculature appear within normal limits. Lungs appear clear. There is no pleural effusion nor pneumothorax. IMPRESSION: No evidence for acute cardiopulmonary disease. Finalized by Bret Barrios MD on 05/07/2023 3:47 [facility] 03-27-2023 Evaluation note* Encounter Date Diagnosis Assessment Notes Treatment Notes Treatment Clinical Notes Mar, Obesity, Class II, BMI 35-39.9 (ICD-10 - E66.01) Consultation date 12-27-2022, weight (pounds): 271 Follow-up date 03-27-2023, weight (pounds): 271.2 Plan is to take a weight centric approach to patient care in the treatment of excess adiposity and patient's weight related comorbidities.-Discussed the impact of excess adiposity on overall health and increased risk of associated health conditions-Discussed treatment options including lifestyle interventions and use of medications as an adjunct to amplify adherence to healthy behavior change-Discussed benefits, risks and side effects of medication. Patient currently on Trulicity without side effect.Orders:-Patient reports recent A1c through orthopedic surgery of between 7.5 to 7.9% -Recent foot fracture and diagnosis of TANYA using CPAP -Given poor response Trulicity, recommend switch to Mounjaro 5 mg -Patient is on board with plan and okay with using second dose of Mounjaro given cross tolerance with Trulicity -She is mother of 4, in school for bachelor's degree-Follow up in clinic in 8 weeksThis note was created with voice recognition software. 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 Mar, Dietary surveillance and counseling (ICD-10 - Z71.3) Discussed in detail high-protein, high-fiber, low-fat nutrition plan favoring calorie deficit and lean tissue mass preservation.-Lean protein sources at each meal supplemented with nutrient rich, low calorie density carbohydrates-Focus on consuming calories earlier in the day versus later; breakfast and lunch should be largest meals-Evening meal should be high in protein and low in carbohydrate to maximize lipolysis overnight-Aim for a minimum of 30 g of protein per meal with breakfast, lunch and dinner with total daily intake reaching at least 100 g-If needed, supplement with whey protein powder or premade protein drink low in carbohydrate and low in fat-If hungry between meals, consider protein snack low in carbohydrate and low in fat -Avoid sugary sweetened beverages such as Gatorade, Mountain Dew -Consider protein shake for breakfast or Latvian yogurt with fruit -Patient with poor dentition and this limits food choices Mar, Exercise counseling (ICD-10 - Z71.89) Absolute HGS at time of consultation (pounds): 28.8Absolute HGS at time of follow-up (pounds): 59.3 Discussed in detail exercise interventions to promote lean tissue mass preservation during calorie restriction.-In addition to regularly scheduled endurance and resistance exercise, perform bouts of resistance exercise prior to meals using body weight, resistance bands or dumbbells/weights-Followi ng meals, consider aerobic exercise, such as brisk walking, to improve blood sugars and to mitigate hyperinsulinemia Mar, Type 2 diabetes mellitus (ICD-10 - E11.9) A1c 10.8% May 2021 Switch to Mounjaro, if not covered continue dose escalation of Trulicity PCP in [place] Mar, Dyslipidemia (ICD-10 - E78.5) Potential history of hypertriglyceridemia induced pancreatitis at early age given patient report Explained side effects of incretin emetics include risk of pancreatitis She has been on GLP-1 previously without issue. She understands and would like to continue pharmacotherapy Mar, GERD (gastroesophageal reflux disease) (ICD-10 - K21.9) Mar, Arthritis of knee, right (ICD-10 - M17.11) Mar, Poor dentition (ICD-10 - K08.9) Mar, Bipolar affective disorder (ICD-10 - F31.9) Avoid phentermine Mar, TANYA (obstructive sleep apnea) (ICD-10 - G47.33) Using CPAP on occasion Mar, Increased liver enzymes (ICD-10 - R74.8) FibroScan performed on 01-11-2023 showing steatosis score of 322 and fibrosis score of 4.0 Discussed results with patient [employer] Other 06-22-2023 Evaluation note* Encounter Date Diagnosis Assessment Notes Treatment Notes Treatment Clinical Notes Oct, Right hip pain (ICD- 10 - M25.551) Oct, Hip pain (ICD-10 - M25.559) Discussion of a worsening of hip pain in which this provider will order an x-ray of the hip and pelvis and discussion with Dr. Stone will order an MRI and refer to orthopedic Dr. Forbes. Oct, Spondylolisthesis at L4-L5 level (ICD-10 - M43.16) I independently reviewed the x-ray 6 view and which is similar to that of the previous exam. I independently reviewed the MRI of the lumbar spine that shows there is interval intervertebral fusion with posterior decompression at the L4-L5 L5-S1 no significant spinal canal narrowing minimal right-sided neuroforaminal narrowing. Hardware is in place. Upon examination and discussion with patient this may very well be injury to right hip status post fall. in which i will order hip workup and refer to Orthopedics. We will continue with conservative therapy, pain management, physical therapy and follow-up as needed. Medical decision making shows a new problem to me with further workup planned or suggested with the potential for extensive treatment options that were considered with the most applicable given this patient's situation as noted above. Treatment options considered include a combination of physical therapy approaches, pharmacologic management, and interventional procedures. Those most applicable to the patient were discussed at this time. Risk of complications and/or morbidity and mortality is high given that acute and chronic pain poses a threat to life and bodily function if undertreated, poorly treated or with failure to maintain adequate treatment and timely follow up. Given the serious and fluctuating nature of pain with extensive consideration for whenever pain changes, there always remains the possibility of prolonged functional impairment requiring constant patient reassessment and high-level medical decision making. The amount and complexity of data reviewed is high given that patient labs, radiology reports, and other test were obtained, reviewed and summarized as applicable from the physician portal and/or outside medical records. Pertinent positive and negative findings were considered in medical decision-making. I did also reviewed L is a perfect 42-year-old no connection to the visit please it is nice Just finishing up this last little present Oct, Lumbar post-laminectomy syndrome (ICD-10 - M96.1) Oct, Other chronic pain (ICD-10 - G89.29) Oct, Positive depression screening (ICD-10 - Z13.31) PHQ reviewed score 22 positive screening of severe depression. Discussion with patient patient is currently being treated with psychotherapy and medication. Patient currently denies any thoughts of harming self or others advised to follow-up with behavioral health. Numbers given for [facility] behavioral health and crisis line [phone]. [facility] Other 05-31-2023 Evaluation note* Encounter Date Diagnosis Assessment Notes Treatment Notes Treatment Clinical Notes September, Herpes zoster without complication (ICD-10 - B02.9) Shingles home care material was printed Drink plenty fluids, get plenty of rest. Take the valacyclovir as prescribed until gone. Continue home medications as prescribed. Take Tylenol or Motrin as needed for pain. Follow-up with your family physician if no improvement in 4 to 5 days [facility] Other 05-11-2023 Evaluation note* Encounter Date Diagnosis Assessment Notes Treatment Notes Treatment Clinical Notes September, Lumbar post-laminectomy syndrome (ICD-10 - M96.1) I reviewed the CT of the lumbar spine from 09/08/22 Eemergency room visit, which shows there is mild levoscoliosis curvature of prior laminectomy from L2-3 S1 there are posterior rods pedicle screws and interbody fusion device at L4-L5 there is continued slight retrolisthesis of the L5 with respect to adjacent vertebra there are tiny endplate spurs no obvious hernia herniation or protrusions mild bilateral foraminal impingement at the L3-L4. I reviewed the CT [id number] with patient. Discussion of conservative therapy and pharmacological therapy in which I will order a prednisone taper continue with current prescriptions that was received in the emergency room. OARRS reviewed. I will order xray 6V lumbar spine to rule out spondylolisthesis. Due to previous surgery with hardware and changes of radicular symptoms we will order an MRI to determine interventional procedures. Will refer to Aqua therapy. Will refer Pain mgt Dr Greenfield for sacroiliac injections. Will order Dexa scan due to vitamin D deficiencies, patient's significant history. Will follow up in 6 weeks or once imaging is completed. Medical decision making shows a new problem to me with further workup planned or suggested with the potential for extensive treatment options that were considered with the most applicable given this patient's situation as noted above. Treatment options considered include a combination of physical therapy approaches, pharmacologic management, and interventional procedures. Those most applicable to the patient were discussed at this time. Risk of complications and/or morbidity and mortality is high given that acute and chronic pain poses a threat to life and bodily function if undertreated, poorly treated or with failure to maintain adequate treatment and timely follow up. Given the serious and fluctuating nature of pain with extensive consideration for whenever pain changes, there always remains the possibility of prolonged functional impairment requiring constant patient reassessment and high-level medical decision making. The amount and complexity of data reviewed is moderate given that patient labs, radiology reports, and other test were obtained, reviewed and summarized as applicable from the physician portal and/or outside medical records. Pertinent positive and negative findings were considered in medical decision-making. September, Spondylolisthesis at L4-L5 level (ICD-10 - M43.16) September, Other chronic pain (ICD-10 - G89.29) September, Low back pain, unspecified (ICD-10 - M54.50) September, Encounter for screening for depression (ICD-10 - Z13.31) PHQ reviewed score 0 negative screening. September, Screening for osteoporosis (ICD-10 - Z13.820) [facility] Other 11-28-2022 Hospital Discharge instructions Patient Education 04/17/2022 08:47:37 Hematuria, Adult Hematuria, Adult Hematuria is blood in the urine. Blood may be visible in the urine, or it may be identified with a test. This condition can be caused by infections of the bladder, urethra, kidney, or prostate. Otherpossible causes include: Kidney stones. Cancer of the urinary tract. Too much calcium in the urine. Conditions that are passed from parent to child (inherited conditions). Exercise that requires a lot of energy. Infections can usually be treated with medicine, and a kidney stone usually will pass through your urine. If neither of these is the cause of your hematuria, more tests may be needed to identify the cause of your symptoms. It is very important to tell your health care provider about any blood in your urine, even if it ispainless or the blood stops without treatment. Blood in the urine, when it happens and then stops and then happens again, can be a symptom of a very serious condition, including cancer. There is no pain in the initial stages of many urinary cancers. Follow these instructions at home: Medicines Take oxue-axe-qjxyomr and prescription medicines only as told by your health care provider. If you were prescribed an antibiotic medicine, take it as told by your health care provider. Do notstop taking the antibiotic even if you start to feel better. Eating and drinking Drink enough fluid to keep your urine clear or pale yellow. It is recommended that you drink 3 4 quarts (2.8 3.8 L) a day. If you have been diagnosed with an infection, it is recommended that you drink cranberry juice in addition to large amounts of water. Avoid caffeine, tea, and carbonated beverages. These tend to irritate the bladder. Avoid alcohol because it may irritate the prostate (men). General instructions If you have been diagnosed with a kidney stone, follow your health care provider's instructions about straining your urine to catch the stone. Empty your bladder often. Avoid holding urine for long periods of time. If you are female: ?After a bowel movement, wipe from front to back and use each piece of toilet paper only once. ?Empty your bladder before and after sex. Pay attention to any changes in your symptoms. Tell your health care provider about any changes or any new symptoms. It is your responsibility to get your test results. Ask your health care provider, or the department performing the test, when your results will be ready. Keep all follow-up visits as told by your health care provider. This is important. Contact a health care provider if: You develop back pain. You have a fever. You have nausea or vomiting. Your symptoms do not improve after 3 days. Your symptoms get worse. Get help right away if: You develop severe vomiting and are unable take medicine without vomiting. You develop severe pain in your back or abdomen even though you are taking medicine. You pass a large amount of blood in your urine. You pass blood clots in your urine. You feel very weak or like you might faint. You faint. Summary Hematuria is blood in the urine. It has many possible causes. It is very important that you tell your health care provider about any blood in your urine, even ifit is painless or the blood stops without treatment. Take gbzg-zjx-tcbjytz and prescription medicines only as told by your health care provider. Drink enough fluid to keep your urine clear or pale yellow. This information is not intended to replace advice given to you by your health care provider. Make sure you discuss any questions you have with your health care provider. Document Released: 05/07/2006 Document Revised: 10/01/2019 Document Reviewed: 06/09/2017 [employer] Patient Education 2020 [employer]. Follow Up Care 10/11/2021 11:32:22 With:LYNDA CAMEJO, Constantino Payton, URYoly Address: [facility] [address] , [place] [address]- When: Unknown [facility] 10-25-2022 Hospital Discharge instructions* Discharge Instructions* Karen Spaulding MD - 03/14/2022 1:57 PM EDT Follow up with your primary care doctor Stay well hydrated, use the zofran as needed for nausea Return to the ED with any worsening pain, difficulty breathing, further syncopal events. You may need further workup if this occurs. If you have fever, worsening abdominal pain, or any new symptoms call your PCP or return for evaluation * Attachments The following attachments cannot be sent through Care Everywhere. * Lightheadedness or Faintness (Marshallese) documented in this encounterB[facility]ENTERFil[facility] [employer] Work Phone: 1(249) 326-919310-12-2022 Evaluation note* Encounter Date Diagnosis Assessment Notes Treatment Notes Treatment Clinical Notes Feb, Obesity, unspecified classification, unspecified obesity type, unspecified whether serious comorbidity present (ICD-10 - E66.9) Feb, BMI 35.0-35.9,adult (ICD-10 - Z68.35) Feb, Other Summary of Visi t: (A) Presentation of Plate Method discussed (B) Sample meal ideas reviewed (C) exercise recommendations reviewed Patient set the following goals: - patient set personal goal using given handout. [employer] Other 09-01-2022 Evaluation note* Encounter Date Diagnosis Assessment Notes Treatment Notes Treatment Clinical Notes Jan, Diabetes type 2, uncontrolled (ICD-10 - E11.65) [employer] Other 08-31-2022 Evaluation note* Encounter Date Diagnosis Assessment Notes Treatment Notes Treatment Clinical Notes Dec, Diabetes type 2, uncontrolled (ICD-10 - E11.65) Dec, BMI 35.0-35.9,adult (ICD-10 - Z68.35) Dec, Increased liver enzymes (ICD-10 - R74.8) Dec, Mixed hyperlipidemia (ICD-10 - E78.2) Dec, Insomnia (ICD-10 - G47.00) Dec, Bipolar affective disorder (ICD-10 - F31.9) Dec, GERD (gastroesophageal reflux disease) (ICD-10 - K21.9) Dec, Vitamin B12 deficiency (ICD-10 - E53.8) Dec, Low back derangement syndrome (ICD-10 - M53.86) Dec, Knee osteoarthritis (ICD-10 - M17.9) Dec, Migraine (ICD-10 - G43.909) Dec, Metabolic syndrome X (ICD-10 - E88.81) [employer] Other 07-19-2022 Evaluation note* Encounter Date Diagnosis Assessment Notes Treatment Notes Treatment Clinical Notes Nov, Diabetes type 2, uncontrolled (ICD-10 - E11.65) Nov, Abnormal weight gain (ICD-10 - R63.5) Nov, Increased liver enzymes (ICD-10 - R74.8) Nov, Mixed hyperlipidemia (ICD-10 - E78.2) Nov, Insomnia (ICD-10 - G47.00) Nov, Bipolar affective disorder (ICD-10 - F31.9) Nov, GERD (gastroesophageal reflux disease) (ICD-10 - K21.9) Nov, Vitamin B12 deficiency (ICD-10 - E53.8) Nov, Low back derangement syndrome (ICD-10 - M53.86) Nov, Knee osteoarthritis (ICD-10 - M17.9) Nov, Migraine (ICD-10 - G43.909) Nov, Metabolic syndrome X (ICD-10 - E88.81) Nov, Obesity (BMI 30.0-34.9) (ICD-10 - E66.9) [employer] Other 05-24-2022 Note [id number]:[address] [place] [address] 10-11-2021 Hospital Discharge instructions Patient Education 10/11/2021 11:27:50 [facility] - Cystoscopy with Urethral Dilation Discharge Instructions (CUSTOM) Cystoscopy with Urethral Dilation Voiding after the procedure: there may be some pain, urethral bleeding, burning, urgency, frequencyand blood tinged urine following the procedure. These symptoms usually resolve within 2-5 days. Drink the amount of fluid it takes to keep the urine pink to yellow or clear in color. Drinking enough water and fluids will help to ease any discomfort after your procedure. If you are having problems that seem out of the ordinary, please call. If unable to contact your physician and you feel it is an emergency, go to the nearest emergency room or call 911 Diet you may resume your normal diet. Activity you may resume your normal activities Call if you have a fever over 100 degrees Follow Up Care 10/04/2021 08:39:15 With:Constantino HOWELL Address: [facility] [address] [place] [address]- Business (1) When:04/13/2022 11:27:38 [facility]05-24-2022 NoteCustom Cystoscopy with Urethral Dilation ? Voiding after the procedure: there may be some pain, urethral bleeding, burning, urgency, frequency and blood tinged urine following the procedure. These symptoms usually resolve within 2-5 days. Drink the amount of fluid it takes to keep the urine pink to yellow or clear in color. Drinking enough water and fluids will help to ease any discomfort after your procedure. ? If you are having problems that seem out of the ordinary, please call. ? If unable to contact your physician and you feel it is an emergency, go to the nearest emergency room or call 911 ? Diet ? you may resume your normal diet. ? Activity ? you may resume your normal activities ? Call if you have a fever over 100 degreesPark[facility]04[facility] Evaluation [facility]* Encounter Date Diagnosis Assessment Notes Treatment Notes Treatment Clinical Notes Aug, Lumbar facet arthropathy (ICD-10 - M47.816) Aug, Lumbar post-laminectomy syndrome (ICD-10 - M96.1) Elective patient should be evaluated for possible dorsal column stimulator with our pain management physicians. A referral will be sent [employer] Other 03-01-2022 Evaluation note* Encounter Date Diagnosis Assessment Notes Treatment Notes Treatment Clinical Notes Jul, Tear of ulnar collateral ligament of left elbow, initial encounter (ICD-10 - S53.442A) MRI reviewed with patient as ulnar collateral ligament tear. We will treat this nonoperatively for now, but based on progression may consider surgery in the future if needed. Instructed on gentle motion/strengthening exercises of the elbow. We will consult with orthopedic partners and contact patient if there is any change in treatment plan. Jul, Injury of ulnar nerve at left forearm level, initial encounter (ICD-10 - S54.02XA) Jul, Unspecified dislocation of left ulnohumeral joint, subsequent encounter (ICD-10 - S53.105D) Jul, Strain of unspecified muscle, fascia and tendon at shoulder and upper arm level, left arm, subsequent encounter (ICD-10 - S46.912D) [employer] Other 12-08-2021 Evaluation note* Encounter Date Diagnosis Assessment Notes Treatment Notes Treatment Clinical Notes Apr, Lumbar facet arthropathy (ICD-10 - M47.816) [employer] Other 11-24-2021 Evaluation note* Encounter Date Diagnosis Assessment Notes Treatment Notes Treatment Clinical Notes Mar, Lumbar spondylolysis (ICD-10 - M43.06) Mar, Spondylolisthesis at L4-L5 level (ICD-10 - M43.16) X-rays obtained today were personally reviewed and show stable lumbar spine progression of her fusion. (Patient was sent down for xray then returned) She does have significant postoperative changes above and below her previous fusion and so one wonders if that is beginning to cause her some of her difficulty. As such I think it is appropriate prior to considering additional conservative therapy or physical therapy that she have an MRI scan with and without gadolinium and we will see her back in the office once results are available. Mar, Other chronic pain (ICD-10 - G89.29) Mar, Lumbar facet arthropathy (ICD-10 - M47.816) Mar, Thoracic spondylosis without myelopathy (ICD-10 - M47.814) [employer] Other evaluation + Plan note Future Appointments Appointment Date:04/17/2022 01:30:00 PM Scheduled Provider:Constantino HOWELL MD Location:[place] Appointment Type:URO Office Visit Diagnostic Tests Pending * [facility] ([facility]) [facility]21 [facility] Other evaluation noteNo InformationNort [employer] Other Evaluation note* Diagnosis Syncope and collapse- Primary Acute nonintractable headache, unspecified headache type Right groin pain Abdominal pain, right lower quadrant Nausea and vomiting, unspecified vomiting type Acute cystitis without hematuria Acute cystitis documented in this encounter [facility] Work Phone: [email or web address] noteNo assessment information [facility] Work Phone: Evaluation note* Diagnosis PFO (patent foramen ovale)- Primary Ostium secundum type atrial septal defect Mixed hyperlipidemia Cigarette smoker Tobacco use disorder Palpitations Lightheadedness Dizziness and giddiness Syncope, unspecified syncope type [facility] this [facility]* Diagnosis Type 2 diabetes mellitus with diabetic polyneuropathy, with long-term current use of insulin ([facility])- Primary Hyperglycemia Other abnormal glucose documented [facility] this [facility]* Diagnosis Obstructive sleep apnea- Primary Obstructive sleep apnea (adult) (pediatric) Intolerance of continuous positive airway pressure (CPAP) ventilation Difficulty using continuous positive airway pressure (CPAP) full face mask History of claustrophobia Hot flashes Daytime sleepiness documented in this encounter [facility]* Diagnosis Accelerated junctional rhythm- Primary Syncope, unspecified syncope type documented [facility] this [facility]* Diagnosis Major depressive disorder, recurrent severe without psychotic features ([facility])- Primary Bipolar I disorder, single manic episode, severe, with psychosis ([facility]) Colitis Other and unspecified noninfectious gastroenteritis and colitis Elevated LFTs Other abnormal blood chemistry Degenerative lumbar spinal stenosis Spinal stenosis of lumbar region Type 2 diabetes mellitus with diabetic polyneuropathy, with long-term current use of insulin ([facility]) Accelerated junctional rhythm documented in this encounter [facility]* Diagnosis Type 2 diabetes mellitus with diabetic polyneuropathy, with long-term current use of insulin ([facility])- Primary Hypokalemia Hypopotassemia Hypomagnesemia Disorders of magnesium metabolism Elevated LFTs Other abnormal blood chemistry Colitis Other and unspecified noninfectious gastroenteritis and colitis documented in this [facility]* Diagnosis Bipolar affective disorder, remission status unspecified ([facility])- Primary Major depressive disorder, recurrent severe without psychotic features ([facility]) documented in this encounter [facility]* Diagnosis Nausea and vomiting, unspecified vomiting type- Primary Generalized abdominal pain Abdominal pain, generalized Abnormal CT of the abdomen Nonspecific (abnormal) findings on radiological and other examination of abdominal area, including retroperitoneum Colitis Other and unspecified noninfectious gastroenteritis and colitis Lower abdominal pain Abdominal pain, other specified site Hx of iron deficiency Dark emesis Chronic GERD Duodenitis Diarrhea, unspecified type documented [facility] this encounter [facility]* Diagnosis Diarrhea, unspecified type- Primary documented in this encounter [facility] general Narrative - Reported* Type Description Date Medical History Diarrhea Medical History Constipation Medical History GERD (gastroesophageal reflux di sease) Medical History Nausea Medical History Blood in stool Medical History Spondylolisthesis at L4-L5 level : Medical History Lower extremity weakness: Medical History Elevated LFTs: Medical History anxietyh Medical History diabetes mallitus Surgical History C section x2 Surgical History c-sections x 3 Surgical History cholecystectomy Surgical History Gallbladder removed 2007 Surgical History EGD Surgical History lumbar decompression 08/28/14 Surgical History back surgery X3 Surgical History wound exploration (lumbar) 09/04 Surgical History lumbar csf repair 09/27/14 Surgical History tubal ligation Surgical History tonsilectomy/septoplasty 2019 Surgical History endoscopy Surgical History back surgery Hospitalization History psych issues Hospitalization History lumbar spinal surgery 2019 [place] [facility] Other History general Narrative - ReportedNort [facility]fund Other History general Narrative - Reported* Type Description Date Medical History Diarrhea Medical History Constipation Medical History GERD (gastroesophageal reflux di sease) Medical History Nausea Medical History Blood in stool Medical History Spondylolisthesis at L4-L5 level : Medical History Lower extremity weakness: Medical History Elevated LFTs: Medical History anxietyh Medical History diabetes mallitus Medical History Patent Foramen Ovale Surgical History C section x2 Surgical History c-sections x 3 Surgical History cholecystectomy Surgical History Gallbladder removed 2007 Surgical History EGD Surgical History lumbar decompression 08/28/14 Surgical History back surgery X3 Surgical History wound exploration (lumbar) 09/04 Surgical History lumbar csf repair 09/27/14 Surgical History tubal ligation Surgical History tonsilectomy/septoplasty 2019 Surgical History endoscopy Surgical History back surgery Hospitalization History psych issues Hospitalization History lumbar spinal surgery 2019 [employer] Other [facility] general Narrative - Reported* Type Description Date Medical History Diarrhea Medical History Constipation Medical History GERD (gastroesophageal reflux di sease) Medical History Nausea Medical History Blood in stool Medical History Spondylolisthesis at L4-L5 level : Medical History Lower extremity weakness: Medical History Elevated LFTs: Medical History anxietyh Medical History diabetes mallitus Medical History Patent Foramen Ovale Medical History PTSD Medical History OCD Medical History hypomagnesemia Medical History hyperkalemia Medical History hyperlipidemia Medical History anemia Medical History type II diabetes Medical History migraine headaches Medical History PFO Medical History bipolar Medical History hypertriglyceridemia Surgical History C section x2 Surgical History c-sections x 3 Surgical History cholecystectomy Surgical History Gallbladder removed 2007 Surgical History EGD Surgical History lumbar decompression 08/28/14 Surgical History back surgery X3 Surgical History wound exploration (lumbar) 09/04 Surgical History lumbar csf repair 09/27/14 Surgical History tubal ligation Surgical History tonsilectomy/septoplasty 2019 Surgical History endoscopy Surgical History back surgery Hospitalization History psych issues Hospitalization History lumbar spinal surgery 2019 [employer] Other [facility] general Narrative - ReportedNoOodrive Other [facility] general Narrative - Reported* Type Description Date Medical History Diarrhea Medical History Constipation Medical History GERD (gastroesophageal reflux di sease) Medical History Nausea Medical History Blood in stool Medical History Spondylolisthesis at L4-L5 level : Medical History Lower extremity weakness: Medical History Elevated LFTs: Medical History anxietyh Medical History diabetes mallitus Medical History Patent Foramen Ovale Medical History PTSD Medical History OCD Medical History hypomagnesemia Medical History hyperkalemia Medical History hyperlipidemia Medical History anemia Medical History type II diabetes Medical History migraine headaches Medical History PFO Medical History bipolar Medical History hypertriglyceridemia Surgical History c-sections x 3 Surgical History cholecystectomy Surgical History EGD Surgical History lumbar decompression 08/28/14 Surgical History back surgery X3 Surgical History wound exploration (lumbar) 09/04 Surgical History lumbar csf repair 09/27/14 Surgical History tubal ligation Surgical History tonsilectomy/septoplasty 2019 Surgical History endoscopy Surgical History adnoidectomy Hospitalization History psych issues Hospitalization History lumbar spinal surgery 2019 [employer] Other History general Narrative - Reported* Type Description Date Medical History Diarrhea Medical History Constipation Medical History GERD (gastroesophageal reflux di sease) Medical History Nausea Medical History Blood in stool Medical History Spondylolisthesis at L4-L5 level : Medical History Lower extremity weakness: Medical History Elevated LFTs: Medical History anxietyh Medical History diabetes mallitus Medical History Patent Foramen Ovale Medical History PTSD Medical History OCD Medical History hypomagnesemia Medical History hyperkalemia Medical History hyperlipidemia Medical History anemia Medical History type II diabetes Medical History migraine headaches Medical History PFO Medical History bipolar Medical History hypertriglyceridemia Medical History Sleep Apnea Surgical History c-sections x 3 Surgical History cholecystectomy Surgical History EGD Surgical History lumbar decompression 08/28/14 Surgical History back surgery X3 Surgical History wound exploration (lumbar) 09/04 Surgical History lumbar csf repair 09/27/14 Surgical History tubal ligation Surgical History tonsilectomy/septoplasty 2019 Surgical History endoscopy Surgical History adnoidectomy Hospitalization History psych issues Hospitalization History lumbar spinal surgery 2019 [employer] Other Hospital course Narrative No data available for this section [facility] Additional Instructions Take the oxycodone every 6 hours as needed for pain Continue regular medication May do gentle stretching ice or warm moist heat whichever helps the best Follow-up with your doctor for recheck Return to the ER for worsening pain significant weakness in your legs significant loss of bladder bowel control high fever or any other concernsPark[facility] Work Phone: InstructionsNot on filedocumented in this encounter [facility]Not on filedocumented in this encounter [facility] System[facility]ructionsNot on filedocumented in this encounter [facility] SystemInstructionsNot on filedocumented in this encounter [facility] SystemInstructionsNot on filedocumented in this encounter [facility] SystemInstructionsNot on filedocumented in this encounter [facility]Not on filedocumented in this encounter [facility]InstructionsNot on filedocumented in this encounter [facility]InstructionsNot on filedocumented in this encounter [facility]InstructionsNot on filedocumented in this encounter [facility]InstructionsNot on filedocumented in this encounter [facility] SystemInstructionsNot on filedocumented in this encounter [facility] SystemInstructionsNot on filedocumented in this encounter [facility] SystemInstructionsNot on filedocumented in this encounter [facility] SystemInstructionsNot on filedocumented in this encounter [facility] SystemProgress note No data available for this section [facility] reason for visit Narrative* Consultation (Routine) - Pending Review Specialty Diagnoses / Procedures Referred By Gertrude t Referred To Contact Gastroenterology Diagnoses Esophageal dysphagia Colitis King Robles, DO [address], [place] [address] Vj Carreno S, DO [address], [address] [address] Referral ID Status Reason Start Date Expiration Date Visits Requested Visits Authorized [id number] Pending Review Specialty Services Required 07/10/2023 07/09/2024 1 1 [facility] [employer] [facility] Summary Purpose Family History No Family History Records Found Relationship Condition Age at Onset Recorded Date/T alejandrina Not Specified Diabetes mellitus Unknown Hypertension Unknown Hyperlipidemia Unknown Relationship Condition Age at Onset Recorded Date/T alejandrina Not Specified Diabetes mellitus Unknown Hypertension Unknown Hyperlipidemia Unknown Heart disease Unknown Advance Directives No Advanced Directives Records Found Advance Directive Response Recorded Date/ Time Advance Directives No March 3:46pm Latest Code Status on File Code Status Date Activated Date Inactivated Comments Full Code 06/27/2023 11:55 PM 06/30/2023 5:06 PM Latest Code Status on File Code Status Date Activated Date Inactivated Comments Full Code 06/27/2023 11:55 PM 06/30/2023 5:06 PM Latest Code Status on File Code Status Date Activated Date Inactivated Comments Full Code 08/21/2023 3:39 AM Code Status History Code Status Date Activated Date Inactivated Comments Full Code 06/27/2023 11:55 PM 06/30/2023 5:06 PM Reason for Referral Specialty Diagnoses / Procedures Referred By Contac t Referred To Contact Diagnoses Nausea and vomiting, unspecified vomiting type Generalized abdominal pain Abnormal CT of the abdomen Dark emesis Chronic GERD Duodenitis Procedures EGD Tiffanie Molina APRN-[employer] [address] [address] Referral ID Status Reason Start Date Expiration Date V isits Requested Visits Authorized [id number] Pending Review 08/08/2023 08/07/2024 1 1 Specialty Diagnoses / Procedures Referred By Contac t Referred To Contact Diagnoses Generalized abdominal pain Abnormal CT of the abdomen Lower abdominal pain Diarrhea, unspecified type Procedures Colonoscopy Tiffanie Molina APRN-[employer] [address] [address] Referral ID Status Reason Start Date Expiration Date V isits Requested Visits Authorized [id number] Pending Review 08/08/2023 08/07/2024 1 1 Specialty Diagnoses / Procedures Referred By Contac t Referred To Contact King Robles, DO [address] [facility], [place] [address] Referral ID Status Reason Start Date Expiration Date V isits Requested Visits Authorized [id number] Pending Review 1 1 Specialty Diagnoses / Procedures Referred By Contac t Referred To Contact Diagnoses Accelerated junctional rhythm Syncope, unspecified syncope type Procedures Wireless Telemetry (In Office) Fiorella Sumner, TECHNICAL SME-[employer] [address] [place] [address] Referral ID Status Reason Start Date Expiration Date V isits Requested Visits Authorized [id number] Pending Review 06/20/2023 06/19/2024 1 1 Specialty Diagnoses / Procedures Referred By Contac t Referred To Contact Diagnoses Obstructive sleep apnea Procedures Polysomnography 4 or more parameters with PAP titration Abby Berg MD [address], [address] [place] [address] Referral ID Status Reason Start Date Expiration Date V isits Requested Visits Authorized [id number] Pending Review 06/12/2023 06/11/2024 1 1 Specialty Diagnoses / Procedures Referred By Contac t Referred To Contact Diagnoses Syncope, unspecified syncope type Procedures Holter Monitor 14 Days (In Office) Fiorella Sumner APRN-[employer] [address] [place] [address] Referral ID Status Reason Start Date Expiration Date V isits Requested Visits Authorized [id number] Pending Review 05/16/2023 05/15/2024 1 1 Specialty Diagnoses / Procedures Referred By Contac t Referred To Contact Diagnoses Syncope, unspecified syncope type Procedures Holter monitor 3-5 days Fiorella Sumner APRN-[employer] [address] [place] [address] Referral ID Status Reason Start Date Expiration Date V isits Requested Visits Authorized [id number] Pending Review 05/16/2023 05/15/2024 1 1 Specialty Diagnoses / Procedures Referred By Contac t Referred To Contact Diagnoses Lightheadedness Syncope, unspecified syncope type Procedures Vas carotid duplex bilateral Fiorella Sumner APRN-[employer] [address] [place] [address] Referral ID Status Reason Start Date Expiration Date V isits Requested Visits Authorized [id number] Authorized 05/16/2023 05/15/2024 1 1 Specialty Diagnoses / Procedures Referred By Contac t Referred To Contact Diagnoses PFO (patent foramen ovale) Mixed hyperlipidemia Cigarette smoker Palpitations Syncope, unspecified syncope type Procedures Echo complete W/O contrast Fiorella Sumner APRN-[employer] [address] [place] [address] Referral ID Status Reason Start Date Expiration Date V isits Requested Visits Authorized [id number] Authorized 05/16/2023 05/15/2024 1 1 Specialty Diagnoses / Procedures Referred By Gertrude scott Referred To Contact Diagnoses PFO (patent foramen ovale) Palpitations Lightheadedness Procedures Wireless Telemetry (In Office) Fiorella Sumner, TECHNICAL SME-[employer] [address] [place] [address] Referral ID Status Reason Start Date Expiration Date V isits Requested Visits Authorized [id number] Pending Review 05/16/2023 05/15/2024 1 1 Reason *FU 11/17 evaluate and treat - right hip pain Diagnosis 1 Right hip pain (M25. 551) Referral Organization [facility] Referring Provider First Name Pratima Referring Provider Last Name Liz Referring Provider Specialty Nurse Pract itioner Referred Organization [facility] Referred Provider Car Forbes Jr. Referred Address ,[place], [place],[address] Referred Provider Specialty Orthopedic S urgery Referral Priority Routine General Notes Lola Rosales 023 08:02:36 AM >Received today and referral was fax. They will review and call patient to schedule Clinical Notes Office [phone] Reason established patient - please add right Hip to treatment plan Diagnosis 1 Right hip pain (M25. 551) Referral Organization [facility] Referring Provider First Name Pratima Referring Provider Last Name Liz Referring Provider Specialty Nurse Pract itioner Referred Organization [facility] Referred Address [address] [place], [place],[address] Referred Provider Specialty Physical The rapist Referral Priority Routine Reason aqua therapy- evalua te and treat Diagnosis 1 Lumbar post-laminect eulalio syndrome (M96.1) Referral Organization [facility] Referring Provider First Name Pratima Referring Provider Last Name Liz Referring Provider Specialty Nurse Pract itioner Referred Organization [facility] Referred Address [address] [place], [place],[address] Referred Provider Specialty Physical The rapist Referral Priority Routine Reason evaluate and treat Diagnosis 1 Lumbar post-laminect eulalio syndrome (M96.1) Referral Organization [facility] Referring Provider First Name Pratima Referring Provider Last Name Liz Referring Provider Specialty Nurse Pract itioner Referred Organization [facility] Pain Managemen t Referred Provider Jone Greenfield Referred Address [address] [address] ,[place], [place],[address] Referred Provider Specialty Pain Medicin e Referral Priority Routine Reason *Waiting for appt Evaluate and Treat for Dorsal Column Stimulator Diagnosis 1 Lumbar facet arthrop athy (M47.816) Diagnosis 2 Postlaminectomy synd candy (M96.1) Diagnosis 3 Lumbar post-laminect eulalio syndrome (M96.1) Referral Organization [facility] Referring Provider First Name Saroj Referring Provider Last Name Wendy Referring Provider Specialty Neurosurger y Referred Organization [facility] Pain Managemen t Referred Provider Maurice Greenfieldif Referred Address [address] [address] ,[place],[address] Referred Provider Specialty Pain Medicin e Referral Priority Routine General Notes Lisa Roslaesn M 022 11:02:23 AM >Received today and sent P2P Chief Complaint and Reason for Visit Chief Complaint back pain Chief Complaint back pain M96.1 Chief Complaint back pain M96.1 z13.820 m96.1 z13.820 Chief Complaint back pain M96.1 z13.820 m96.1 z13.820 M25.559 Chief Complaint z13.820 M25.559 Obesity R74.8 Additional Source Comments INFORMATION SOURCE (unrecogn ized section and content) DATE CREATED AUTHOR 11/08/2017 [facility] DATE CREATED AUTHOR AUTHOR'S ORGANIZ ATION 07/02/2020 [facility] DATE CREATED AUTHOR AUTHOR'S ORGANIZ ATION 11/03/2021 [facility] DATE CREATED AUTHOR AUTHOR'S ORGANIZ ATION 01/16/2022 [facility] DATE CREATED AUTHOR AUTHOR'S ORGANIZ ATION 03/14/2022 [facility] DATE CREATED AUTHOR AUTHOR'S ORGANIZ ATION 03/15/2022 [facility] DATE CREATED AUTHOR AUTHOR'S ORGANIZ ATION 03/24/2022 [facility] DATE CREATED AUTHOR AUTHOR'S ORGANIZ ATION 04/18/2022 [facility] DATE CREATED AUTHOR AUTHOR'S ORGANIZ ATION 10/22/2023 [facility] DATE CREATED AUTHOR AUTHOR'S ORGANIZ ATION 11/14/2023 [facility] DATE CREATED AUTHOR AUTHOR'S ORGANIZ ATION 12/10/2023 [facility] DATE CREATED AUTHOR AUTHOR'S ORGANIZ ATION 12/30/2023 [facility] DATE CREATED AUTHOR AUTHOR'S ORGANIZ ATION 01/02/2024 [facility] REASON FOR VISIT (unrecogniz ed section and content) Reason Comments Loss of Consciousness Syncopal episodes x 2 this am Reason Comments Follow-up Hyperlipidemia Reason Comments Diabetes Blurry vision, 535,5 71 Reason Comments Sleep Apnea DME: [facility] Reason Onset Date Comments Sleep Lab 06/13/2023 CPAP Reason Onset Date Comments change to video visit 06/13/2023 reschd appt 06/13/2023 Reason Comments Follow-up 3 month check up Reason Comments Med Refill Reason Onset Date Comments Surgical Or Dental Clearance 07/09/2023 Reason Comments 2-3 weeks follow up Reason Onset Date Comments Med Refill 08/20/2023 Ordered Prescriptions (unrec ognized section and content) Prescription Sig Dispensed Refills Start Date End Da te sulfamethoxazole-trimethop rim (BACTRIM DS) 800-160 MG per tablet Take 1 tablet by mouth 2 times daily for 7 days 14 tablet 0 03/14/2022 03/21/2022 ondansetron (ZOFRAN ODT) 4 MG disintegrating tablet Take 1 tablet by mouth every 8 hours as needed for Nausea 20 tablet 0 03/14/2022 Scheduled Active and Recently Administ ered Medications (unrecognized section and content) Medication Order 03/12/2022 03/13/2022 03/14/2022 0.9 % sodium chloride bolus (COMPLETED) 1,000 mL (8.82 mL/kg), IntraVENous, at 1,000 mL/hr, Administer over 1 Hours, ONCE, On Sun03/14/22 at 1000, For 1 dose 1038 (New Bag - Prov ider: Jose Raul Keller RN)1156 (Stopped - Provider: Jose Raul Keller RN) acetaminophen (TYLENOL) tablet 650 mg (COMPLETED) 650 mg, Oral, ONCE, 1 dose, On Sun03/14/22 at 1200, Maximum dose of acetaminophen is 4000 mg from all sources in 24 hours. 1209 (Given - Provid er: Jose Raul Keller, DEENA) diphenhydrAMINE (BENADRYL) injection 25 mg (COMPLETED) 25 mg, IntraVENous, ONCE, 1 dose, On Sun03/14/22 at 1200 1209 (Given - Provid er: Jose Raul Keller, RN) ondansetron (ZOFRAN) injection 4 mg (COMPLETED) 4 mg, IntraVENous, ONCE, 1 dose, On Sun03/14/22 at 1000 1038 (Given - Provid er: Jose Raul Keller, DEENA) prochlorperazine (COMPAZINE) injection 10 mg (COMPLETED) 10 mg, IntraVENous, ONCE, 1 dose, On Sun03/14/22 at 1200 1211 (Given - Provid er: Jose Raul Keller RN) Patient Care team informatio n (unrecognized section and content) Team Status: Active Member Role Status Dates NON STAFF Primary Care Provider Active Team Status: Inactive Member Role Status Dates Nawaf Mckoy APRN [employer]INDER-C Primary Care Provider Active Pratima Hill NP-C Attending Provider Active Team Status: Active Member Role Status Dates Nawaf Mckoy APRN [employer]-C Primary Care Provider Active Rainer Barrera DO Attending Provider Active Team Status: Inactive Member Role Status Dates Rainer Barrera DO Attending Provider Active NON STAFF Primary Care Provider Active Team Status: Active Member Role Status Dates Nawaf Mckoy APRN [employer]-C Primary Care Provider Active Team Status: Inactive Member Role Status Dates Nawaf Mckoy APRN [employer]ER-C Primary Care Provider Active Cristel Allen , [facility]- Emergency Provider Active Tea Taster Relationship Specialty Start Date End Date King Robles DO [address], [place] [address] PCP - General Family Medicine 04/02/23 Tea Taster Relationship Specialty Start Date End Date King Robles DO [address], [place] [address] PCP - General Family Medicine 04/02/23 Tea Taster Relationship Specialty Start Date End Date King Robles DO [address] [place] [address] PCP - General Family Medicine 04/02/23 Tea Taster Relationship Specialty Start Date End Date King Robles DO [address] [place] [address] PCP - General Family Medicine 04/02/23 Tea Taster Relationship Specialty Start Date End Date King Robles DO [address] [place] [address] PCP - General Family Medicine 04/02/23 Tea Taster Relationship Specialty Start Date End Date King Robles DO [address] [place] [address] PCP - General Family Medicine 04/02/23 Tea Taster Relationship Specialty Start Date End Date King Robles DO [address] [place] [address] PCP - General Family Medicine 04/02/23 Tea Taster Relationship Specialty Start Date End Date King Robles DO [address] [place] [address] PCP - General Family Medicine 04/02/23 Tea Taster Relationship Specialty Start Date End Date King Robles DO [address] [place] [address] PCP - General Family Medicine 04/02/23 Tea Taster Relationship Specialty Start Date End Date King Robles DO [address] [place] [address] PCP - General Family Medicine 04/02/23 Tea Taster Relationship Specialty Start Date End Date King Robles DO [address] [place] [address] PCP - General Family Medicine 04/02/23 Tea Taster Relationship Specialty Start Date End Date King Robles DO [address] [place] [address] PCP - General Family Medicine 04/02/23 Tea Taster Relationship Specialty Start Date End Date SeaurelianoKing parra DO [address] [place] [address] PCP - General Family Medicine 04/02/23 Tea Taster Relationship Specialty Start Date End Date King Robles DO [address] [place] [address] PCP - General Family Medicine 04/02/23 Tea Taster Relationship Specialty Start Date End Date SeaurelianoKing parra DO [address] [place] [address] PCP - General Family Medicine 04/02/23 Tea Taster Relationship Specialty Start Date End Date SeaurelianoKnig parra DO [address] [place] [address] PCP - General Family Medicine 04/02/23 Tea Taster Relationship Specialty Start Date End Date King Robles DO [address], [place] [address] PCP - General Family Medicine 04/02/23 Tea Taster Relationship Specialty Start Date End Date King Robles DO [address], [place] [address] PCP - General Family Medicine 04/02/23 Goals (unrecognized section and content) Goals may be documented in a n alternate section FOR RECORDS PERTAINING TO PATIENTS WHO ARE OR HAVE BEEN ENROLLED IN A CHEMICAL DEPENDENCY/SUBSTANCEABUSE PROGRAM, SOME INFORMATION MAY BE OMITTED. This clinical summary was aggregated from multiple sources. Caution should be exercised in using it in the provision of clinical care. This summary normalizes information from multiple sources, and as a consequence, information in this document may materially change the coding, format and clinical context of patient data. In addition, data may be omitted in some cases. CLINICAL DECISIONS SHOULD BE BASED ON THE PRIMARY CLINICAL RECORDS. [employer] provides no warranty or guarantee of the accuracy or completeness of information in this document.
[2024-01-05 13:34] LABS: Basophils Percent Auto 0.6 % (0.2-2.0); Eosinophils Percent Auto 0.4 % (0.9-7.0); Hematocrit 39.3 % (36.0-48.0); Hemoglobin 13.8 g/dL (12.0-16.0); Immature Granulocytes Abs Auto 0.03 10^3/uL (0.00-0.03); Immature Granulocytes Pct Auto 0.4 % (0.0-0.5); Lymphocytes Absolute Auto 1.3 10^3/uL (1.2-3.8); Lymphocytes Percent Auto 18.8 % (20.5-60.0); Mean Corpuscular HGB Conc 35.1 g/dL (29.9-35.2); Mean Corpuscular Hemoglobin 30.9 pg (26.7-34.0); Mean Corpuscular Volume 88.1 fL (81.0-99.0); Mean Platelet Volume 9.6 fL (9.5-13.5); Monocytes Absolute Auto 0.4 10^3/uL (0.3-0.8); Monocytes Percent Auto 5.6 % (1.7-12.0); Neutrophils Percent Auto 74.2 % (43.0-75.0); Platelet Count 445 10^3/uL (150-450); Red Blood Count 4.46 10^6/uL (4.20-5.40); Red Cell Distribution Width 12.1 % (11.0-15.0); White Blood Count 6.8 10^3/uL (4.0-11.0)
[2024-01-05 13:47] LABS: Alanine Aminotransferase 99 U/L (14-59); Albumin Globulin Ratio 1.2; Albumin Level 4.6 g/dL (3.4-5.0); Alkaline Phosphatase 79 U/L (46-116); Anion Gap 13.4; Aspartate Amino Transferase 38 U/L (15-37); BUN Creatinine Ratio 6.4; Bilirubin Total 0.5 mg/dL (0.2-1.0); Calcium 9.5 mg/dL (8.5-10.1); Carbon Dioxide 26.5 mmol/L (21.0-32.0); Chloride 97 mmol/L (98-107); Estimated GFR (African America >60 (>=60); Estimated GFR (Non-African Ame >60 (>=60); Globulin 3.7 g/dL; Glucose 178 mg/dL (74-106); Sodium 134 mmol/L (136-145); Total Protein 8.3 g/dL (6.4-8.2)
[2024-01-05 13:50] LABS: Potassium 2.9 mmol/L (3.5-5.1)
[2024-01-05] MEDS: 0.9 % SODIUM CHLORIDE 1,000 ML 999 ML IV (13:53)
[2024-01-05] MEDS: METOCLOPRAMIDE HCL 10 MG/2 ML VIAL IVP (13:54)
[2024-01-05] MEDS: HALOPERIDOL LACTATE 5 MG/ML VIAL IV (13:54)
--- NOTE | 2024-01-05 14:15 | ED_ITS ---
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 No relief despite scopolamine patch, compazine use at home. She said they usually give me Reglan but after she was evaluated in [place] ED, no Reglan was prescribed. She had been in this ED on 01/01/24 but left AMA before eval and treatment could be finished. Blood tests including CBC and CMP on that day were negative and she had received NS IVF and IV Zofran. She denied fever or chills. She does not believe that marijuana/THC use is the cause of her symptoms and that something else is going on . Related Data Home Medications ?Medication ?Instructions ?Recorded ?Confirmed albuterol sulfate 90 mcg/actuation 2 puff inhalation Q6H PRN 01/01/24 01/01/24 aerosol inhaler shortness of breath or wheezing aspirin 81 mg chewable tablet 81 mg PO DAILY 01/01/24 01/01/24 atogepant 60 mg tablet (Qulipta) 60 mg PO DAILY 01/01/24 01/01/24 baclofen 10 mg tablet 10 mg PO Q8H 01/01/24 01/01/24 buspirone 30 mg tablet 30 mg PO BID 01/01/24 01/01/24 cariprazine 1.5 mg capsule 3 mg PO Q24H 01/01/24 01/01/24 (Vraylar) cyanocobalamin (vitamin B-12) 1,000 mcg PO DAILY 01/01/24 01/01/24 1,000 mcg tablet dicyclomine 20 mg tablet 20 mg PO DAILY 01/01/24 01/01/24 escitalopram oxalate 10 mg tablet 10 mg PO DAILY 01/01/24 01/01/24 famotidine 20 mg tablet 20 mg PO Q12H 01/01/24 01/01/24 fenofibrate 150 mg capsule 145 mg PO DAILY 01/01/24 01/01/24 ferrous sulfate 325 mg (65 mg 325 mg PO DAILY 01/01/24 01/01/24 iron) tablet (FeroSul) flash glucose sensor (FreeStyle 01/01/24 01/01/24 Otoniel 2 Sensor kit) fluticasone propionate 44 2 puff inhalation TID 01/01/24 01/01/24 mcg/actuation HFA aerosol inhaler gabapentin 600 mg tablet 600 mg PO QID 01/01/24 01/01/24 lamotrigine 100 mg tablet 100 mg PO DAILY 01/01/24 01/01/24 lidocaine 5 % topical patch 1 patch transdermal ONCE 01/01/24 01/01/24 magnesium oxide 400 mg (241.3 mg 400 mg PO DAILY 01/01/24 01/01/24 magnesium) tablet metoclopramide HCl 5 mg tablet 5 mg PO QID 01/01/24 01/01/24 montelukast 10 mg tablet 10 mg PO .QHS 01/01/24 01/01/24 multivitamin with folic acid 400 1 tab PO QAM 01/01/24 01/01/24 mcg tablet (Daily-Brigette (with folic acid)) omeprazole 40 mg capsule,delayed 40 mg PO BIDWM 01/01/24 01/01/24 release prochlorperazine maleate 10 mg 10 mg PO Q6H PRN N/V 01/01/24 01/01/24 tablet scopolamine base 1 mg over 3 days 1 patch transdermal Q3D 01/01/24 01/01/24 transdermal patch (Transderm-Scop) tamsulosin 0.4 mg capsule 0.4 mg PO QAM 01/01/24 01/01/24 tirzepatide 7.5 mg/0.5 mL 7.5 mg subcut QWEEK 01/01/24 01/01/24 subcutaneous pen injector (Lupe) Previous Rx's ?Medication ?Instructions ?Recorded metoclopramide HCl 10 mg tablet 10 mg PO Q6H PRN nausea & vomiting 01/05/24 (Reglan) 7 days #20 tabs Allergies Allergy/AdvReac Type Severity Reaction Status Date / Time amoxicillin Allergy Severe Anaphylaxis Verified 01/05/24 13:14 hydromorphone [From Dilaudid] AdvReac Mild Hives Verified 01/05/24 13:14 ibuprofen AdvReac Mild Vomiting Verified 01/05/24 13:14 verapamil AdvReac Mild Unknown Verified 01/05/24 13:14 Exam Narrative Exam Narrative: Nurses notes and vital signs reviewed and patient is not hypoxic. afebrile General: uncomfortable with difficulty sitting still. Skin: Warm, dry, no pallor noted. No rash. Head: Normocephalic, atraumatic. Neck: Supple, non-tender. No meningismus. Eye: Pupils are equal, round and EOMI. No scleral icterus. Ears, Nose, Mouth, and Throat: Oral mucosa is dry Cardiovascular: Regular Rate and Rhythm without murmur, gallop or rub. Respiratory: No accessory muscle use or respiratory distress. Lungs are clear to auscultation, no wheezing, rales or rhonchi Back: No CVA tenderness Musculoskeletal: normal ROM GI: Abdomen is soft, non-distended. Normal bowel sounds. No masses appreciated. Mild, diffuse tenderness to palpation. No rebound, guarding, or rigidity noted. Neurological: A&O x4. No cranial nerve dysfunction observed. No truncal ataxia. Moves all extremities. Sensation intact. Psychiatric: Cooperative and interactive. Normal mood and affect. Constitutional Vital Signs, click to edit/add: Last Vital Signs Temp 98.1 F 01/05/24 13:09 Pulse 109 H 01/05/24 13:09 Resp 18 01/05/24 13:09 BP 140/90 01/05/24 13:09 Pulse Ox 99 01/05/24 13:09 O2 Del Method Room Air 01/05/24 13:09 Course Vital Signs Vital signs: Vital Signs Temperature 98.1 F 01/05/24 13:09 Pulse Rate 109 H 01/05/24 13:09 Respiratory Rate 18 01/05/24 13:09 Blood Pressure 140/90 01/05/24 13:09 Pulse Oximetry 99 01/05/24 13:09 Oxygen Delivery Method Room Air 01/05/24 13:09 Temperature 98.1 F 01/05/24 13:09 Pulse Rate 109 H 01/05/24 13:09 Respiratory Rate 18 01/05/24 13:09 Blood Pressure 140/90 01/05/24 13:09 Pulse Oximetry 99 01/05/24 13:09 Oxygen Delivery Method Room Air 01/05/24 13:09 MDM - Nausea/Vomiting/Diarrhea MDM Narrative Medical decision making narrative: Peripheral IV established and blood drawn and sent for testing. She was ordered to receive IV Haldol, IV Reglan and normal saline IV fluid bolus. Urine is also ordered to be obtained and sent for testing. On recheck at 1400, The patient had decrease in her symptoms with decreased nausea and no vomiting since the medicine was administered. We discussed her lab results. She was found to have decreased potassium. We discussed oral potassium supplementation for repletion. She began vomiting again - bilious green watery emesis - and we could not give her anything by mouth. She does not feel well enough to go home, despite being prescribed Reglan for home use. History of multiple xrays and CTs of the abdomen so will not image her again. Case discussed with Dr Roper and he agreed to admit the patent - medsurg, obs basis. Patient is agreeable to admission. Lab Data Attestation: I reviewed the patient's lab results. Labs: Lab Results 01/05/24 Range/Units 13:16 WBC 6.8 (4.0-11.0) 10^3/uL RBC 4.46 (4.20-5.40) 10^6/uL Hgb 13.8 (12.0-16.0) g/dL Hct 39.3 (36.0-48.0) % MCV 88.1 (81.0-99.0) fL MCH 30.9 (26.7-34.0) pg MCHC 35.1 (29.9-35.2) g/dL RDW 12.1 (11.0-15.0) % Plt Count 445 (150-450) 10^3/uL MPV 9.6 (9.5-13.5) fL Neut % (Auto) 74.2 (43.0-75.0) % Lymph % (Auto) 18.8 L (20.5-60.0) % Clark % (Auto) 5.6 (1.7-12.0) % Eos % (Auto) 0.4 L (0.9-7.0) % Baso % (Auto) 0.6 (0.2-2.0) % Neut # (Auto) 5.0 (1.4-6.5) 10^3/uL Lymph # (Auto) 1.3 (1.2-3.8) 10^3/uL Clark # (Auto) 0.4 (0.3-0.8) 10^3/uL Eos # (Auto) 0.0 (0.0-0.7) 10^3/uL Baso # (Auto) 0.0 (0.0-0.1) 10^3/uL Abs Immat Gran (auto) 0.03 (0.00-0.03) 10^3/uL Imm/Tot Granulo (auto) 0.4 (0.0-0.5) % Sodium 134 L (136-145) mmol/L Potassium 2.9 L* (3.5-5.1) mmol/L Chloride 97 L (98-107) mmol/L Carbon Dioxide 26.5 (21.0-32.0) mmol/L Anion Gap 13.4 BUN 6.0 L (7.0-18.0) mg/dL Creatinine 0.94 (0.55-1.02) mg/dL Est GFR ( Amer) >60 (>=60) Est GFR (Non-Af Amer) >60 (>=60) BUN/Creatinine Ratio 6.4 Glucose 178 H (74-106) mg/dL Calcium 9.5 (8.5-10.1) mg/dL Total Bilirubin 0.5 (0.2-1.0) mg/dL AST 38 H (15-37) U/L ALT 99 H (14-59) U/L Alkaline Phosphatase 79 (46-116) U/L Total Protein 8.3 H (6.4-8.2) g/dL Albumin 4.6 (3.4-5.0) g/dL Globulin 3.7 g/dL Albumin/Globulin Ratio 1.2 Lipase 29.0 (16.0-77.0) U/L Discharge Plan Discharge Stand Alone Forms: Portal Instructions Chief Complaint: Nausea/Vomiting/Diarrhea Clinical Impression: Nausea & vomiting, Cyclic vomiting syndrome Patient Disposition: Admitted as Observation Time of Disposition Decision: 14:24 Prescriptions / Home Meds: New metoclopramide HCl [Reglan] 10 mg tablet 10 mg PO Q6H PRN (Reason: nausea & vomiting) 7 Days Qty: 20 0RF No Action albuterol sulfate 90 mcg/actuation HFA aerosol inhaler 2 puff INHALATION Q6H PRN (Reason: shortness of breath or wheezing) aspirin 81 mg tablet,chewable 81 mg PO DAILY baclofen 10 mg tablet 10 mg PO Q8H buspirone 30 mg tablet 30 mg PO BID Vraylar 1.5 mg capsule 3 mg PO Q24H cyanocobalamin (vitamin B-12) 1,000 mcg tablet 1,000 mcg PO DAILY dicyclomine 20 mg tablet 20 mg PO DAILY escitalopram oxalate 10 mg tablet 10 mg PO DAILY famotidine 20 mg tablet 20 mg PO Q12H fenofibrate 150 mg capsule 145 mg PO DAILY ferrous sulfate [FeroSul] 325 mg (65 mg iron) tablet 325 mg PO DAILY fluticasone propionate 44 mcg/actuation HFA aerosol inhaler 2 puff INHALATION TID (DME) FreeStyle Otoniel 2 Sensor Kit See Rx Instructions .ROUTE Rx Instructions: As directed gabapentin 600 mg tablet 600 mg PO QID magnesium oxide 400 mg (241.3 mg magnesium) tablet 400 mg PO DAILY Rx Instructions: 1 tab/morning metoclopramide HCl 5 mg tablet 5 mg PO QID lidocaine 5 % adhesive patch,medicated 1 patch transdermal ONCE Rx Instructions: 1 PATCH TO AFFECTED AREA Q24 Hours montelukast 10 mg tablet 10 mg PO .QHS lamotrigine 100 mg tablet 100 mg PO DAILY Mounjaro 7.5 mg/0.5 mL pen injector 7.5 mg subcut QWEEK omeprazole 40 mg capsule,delayed release(DR/EC) 40 mg PO BIDWM multivitamin with folic acid [Daily-Brigetet (with folic acid)] 400 mcg tablet 1 tab PO QAM prochlorperazine maleate 10 mg tablet 10 mg PO Q6H PRN (Reason: N/V) Qulipta 60 mg tablet 60 mg PO DAILY scopolamine base [Transderm-Scop] 1 mg over 3 days patch 3 day 1 patch transdermal Q3D tamsulosin 0.4 mg capsule 0.4 mg PO QAM Print Language: Greek Instructions: Acute Nausea and Vomiting (ED), Cannabis Use Disorder (ED) Referrals: NAWAF MCKOY [Primary Care Provider] - 1 week
[2024-01-05] MEDS: POTASSIUM CHLORIDE/D5-0.9%NACL 1,000 ML 200 ML IV (14:51)
--- OUTSIDE RECORDS SUMMARY | 2024-01-05 15:12 | XMS_ITS | CCD ---
Author Organization [facility] Care Team Providers Care Frit Maker Name Role Phone ANNABELLE CLAIRE (PA) Unavailable Unavailable ANNABELLE CLAIRE (PA) Unavailable Unavailable KUENZLER MINNIE M Unavailable Unavailable ANNABELLE CLAIRE (PA) Unavailable Unavailable KUENZLER MINNIE M Unavailable Unavailable KUENZLER MINNIE M Unavailable Unavailable KUENZLER MINNIE M Unavailable Unavailable KUENZLER MINNIE M Unavailable Unavailable KUENZLER, MINNIE M Unavailable Unavailable EAN, NAWAF Primary Care Physician Saroj Nguyen Unavailable Te Shelton Unavailable Dreeck Dempsey Unavailable ANGESME, NAWAF Primary Care Unavailable LYNDA, DR MEEKS Admitting Unavailable LYNDA, DR MEEKS Attending Unavailable LYNDA, DR MEEKS Consulting Unavailable EAN, NAWAF Primary Care Unavailable LYNDA, DR MEEKS Admitting Unavailable LYNDA, DR MEEKS Attending Unavailable ZIDANNA, DR MARILIA Payton Consulting Unavailable LYNDA, DR MEEKS Attending Unavailable ANGESME, NAWAF Primary Care Unavailable LYNDA, DR MEEKS Consulting Unavailable LYNDA, DR MEEKS Admitting Unavailable NARCIOS, DR MARILIA Payton Consulting Unavailable ROSI, DR [...] Admitting Unavailable AnglimDILIA Primary Care Provider Willamcortez, [facility]- Cristel Ramírez Emergency Provider LUIS Hill Attending Provider Pratima Hill Unavailable Leatha Nicole Unavailable Jone Greenfield Unavailable DILIA Mckoy Primary Care Provider LUIS Hill Attending Provider DO Rainer Barrera Attending Provider NON STAFF Primary Care Provider UnavailRainer Rice Unavailable Furlong King CANTU Primary Care Provider [phone] Anglim, Nawaf Primary Care Unavailable Pratima Hill [...] [HYDROCODONE-ACET AMINOPHEN] Drug Allergy 07-27-19 16 Hives [facility] Repository (20 sources) amoxicillin; Translations: [AMOXICILLIN] Drug Allergy 11-17-19 13 Allergy - specialty (qualifier value), anaphylaxis [facility] Repository (20 sources) cefadroxil; Translations: [CEFADROXIL] Drug Allergy 10-13-19 17 AOF, Unknown, Unknown Reaction [facility] Repository (20 sources) calderón allergenic extract; Translations: [CALDERÓN] Drug Allergy 06-09-19 17 Anaphylaxis (disorder), Anaphylaxis [facility] Repository (1 source) HYDROmorphone; Translations: [HYDROMORPHONE (BULK)] Drug Allergy 03-15-20 17 AOF [facility] Repository (20 sources) ibuprofen; Translations: [IBUPROFEN] Drug Allergy 07-27-19 16 Vomiting (disorder), Hives, Vomiting [facility] Repository (20 sources) NSAIDs; Translations: [NSAIDS (NON-STEROIDAL ANTI-INFLAMMATORY DRUG)] Propensity to adverse reactions to drug (disorder) 10-13-19 17 AOF [facility] Repository (20 sources) Penicillins; Translations: [PENICILLINS] Propensity to adverse reactions to drug (disorder) 07-27-19 16 Weal (disorder), Anaphylaxis [facility] Repository (20 sources) strawberry allergenic extract; Translations: [STRAWBERRY] Drug Allergy 05-21-19 07 [facility] Repository (20 sources) PINK DYE; Translations: [PINK DYE] Propensity to adverse reactions to drug (disorder) 03-13-20 14 [facility] Repository (5 sources) Acetaminophen / HYDROcodone; Translations: [acetaminophen-hy drocodone] Drug Allergy 03-15-20 17 Weal (disorder) [facility] (10 sources) HYDROcodone; Translations: [hydrocodone] Drug Allergy 06-03-19 20 Unknown, Hives, Unknown Reaction [facility] (20 sources) HYDROmorphone; Translations: [hydromorphone] Drug Allergy 07-27-19 16 [facility]disorder[facility] [place] Other (3 sources) NSAIDs; Translations: [NSAIDs] Drug allergy Weal (disorder) [facility] (3 sources) [place]; Translations: [Strawberries] Drug allergy Weal (disorder) [facility] (20 sources) Verapamil; Translations: [verapamil] Drug Allergy 11-09-19 19 shortness of breath, Dizziness [facility] [place] Other (20 sources) Acetaminophen / HYDROcodone; Translations: [Vicodin] Drug Allergy 11-17-19 14 [facility] [place] Repository (20 sources) pink dye in vicodin Propensity to adverse reactions 06-06-19 24 [facility] (20 sources) cherries Propensity to adverse reactions 06-06-19 24 [facility] (3 sources) HYDROmorphone; Translations: [Dilaudid] Drug Allergy 03-05-20 15 [facility] Repository (1 source) Ibuprofen Drug Allergy 11-17-19 13 [facility] Repository (1 source) Verapamil Drug Allergy [facility] Repository (1 source) Darvocet-N 100 Drug allergy (disorder) [facility] Repository (1 source) Calderón Cough Drops Drug allergy (disorder) 05-21-19 07 [facility] Repository (2 sources) Acetaminophen; Translations: [acetaminophen] Drug Allergy 06-03-19 [facility] Repository (7 sources) peanut allergenic extract Drug Allergy 07-05-19 [facility] (7 sources) NSAIDS (Non-Steroidal Anti-Inflamma Allergy to substance 07-05-19 [facility] (7 sources) [place] Allergy to substance 07-05-19 [facility] Medications Current Medications Medication Drug Class(es) [...] Start: 11-24-2020 take 1 capsule by mo [facility] three times daily as needed Tessalon Perles 100 MG 1 capsule as needed Orally Three times a day for 7 days Nov, Active brompheniramine maleate 0.4 mg/ml / dextromethorphan hydrobromide 2 mg/ml / pseudoephedrine hydrochloride 6 mg/ml oral solution (5 sources) alpha-Adrenergic Agonist, Uncompetitive S-cxjwds-C-aspartate Receptor Antagonist, Sigma-1 Agonist Start: 08-15-2022 take 10 mL by mouth every six hours Klmbmqzdj-Oediqbjm-JU 30-2-10 MG/5ML 10 mL Orally every 6 [...] / neomycin 3.5 mg/ml / polymyxin b [id number] unt/ml ophthalmic suspension (7 sources) Aminoglycoside Antibacterial, [...] polyneuropathy, with long-term current use of insulin ([facility]) 1 Unit by miscellaneous route every 14 (fourteen) days. 2 kit 5 06/08/2023 Suspended Start: 06-08-2023 flash glucose sensor (FREESTYLE MAKSIM 2 SENSOR) kit Indications: Type 2 diabetes mellitus with diabetic polyneuropathy, with long-term current use of insulin ([facility]) 1 Unit by miscellaneous route every 14 (fourteen) days. 2 kit 5 06/08/2023 Active FreeStyle Maksim 2 [place] - (14 sources) Start: 01-18-2022 FreeStyle Libr e 2 [place] - 1 device daily for 365 days Dec, Active FreeStyle Maksim 2 [place] - USE TO TEST BLOOD SUGAR DAILY for 30 Not-Taking/PRN FreeStyle Maksim 2 [place] - USE TO TEST BLOOD SUGAR DAILY for 30 Not-Taking FreeStyle Maksim 2 [place] - USE TO TEST BLOOD SUGAR DAILY [...] source) Corticosteroid Start: 07-15-2020 Nasonex 50 mcg/inh [place] = 2 spray(s), Nasal, Daily, PRN for [...] Once a day Active Nasonex 50 mcg/inh [place] (1 source) Start: Nasonex 50 mcg/inh [place] = 2 spray(s), Nasal, Daily, PRN for [...] 2021 1:00am must administer with a meal/food Towanda-3 1000 mg oral capsule (2 sources) Start: take 1 capsule by mouth once daily Towanda-3 1000 mg oral capsule mg cap(s), Oral, [...] polyneuropathy, with long-term current use of insulin ([facility]) Inject 7.5 mg under the skin every 7 days. 2 mL 1 07/24/2023 Suspended Start: 07-24-2023 tirzepatide (M OUNJARO) 7.5 mg/0.5 mL pen injector Indications: Type 2 diabetes mellitus with diabetic polyneuropathy, with long-term current use of insulin ([facility]) Inject 7.5 mg under the skin [...] take [address] capsule [address] [facility] every eight hours Acetaminophen 500 MG 1 capsule Orally tid Active take 1 tablet by elvira every four hours Tylenol 325 MG 1 tablet as needed Orally every 4 hrs Not-Taking take 1 capsule by mo [facility] every six hours Acetaminophen 500 MG 1 capsule as needed Orally every 6 hrs Active [id number] actuat albuterol 0.09 mg/actuat metered dose [...] 5:55pm docusate sodium 50 mg / sennosides, mcc 8.6 mg oral tablet (14 sources) Start: [...] procedure, # 2 cap(s), Refills(s) 0, Pharmacy: [facility] 536, 180, cm, 04/20/21 10:43:00 EST, Height/Length [...] Start: 06-18-2023 take 1 capsule by mo [facility] in the morning omeprazole (PriLOSEC) 40 mg [...] 09-24-2019 Episodic Other aftercare (1 source) Other custodial (current) drug therapy; Translations: [OTH LOADING UNIT OPERATOR POWDER CHARGING CURRENT DRUG THERAPY] Onset: 2 Episodic Other aftercare (1 source) long term care administrator (current) use of oral hypoglycemic drugs; Translations: [ALF USE ORAL HYPOGLYCEMIC DX] Onset: 2 Episodic [...] 06-09-2019 04-02-2023 Episodic Other aftercare (2 sources) long term care administrator (current) use of insulin; Translations: [detention (current) use of insulin] Onset: 12-30-2021 Episodic [...] 24 ABSOLUTE BASOPHIL 0.0 X10E9/L Normal 0.0-0.2 [facility] Comment on above: Performed By: #### B MP #### [facility] ([id number]) [address], [address] [place] [address] ABSOLUTE NEUTROPHIL 7.7 X10E9/L High 1.5-6.6 [facility] Comment on above: Performed By: #### B MP #### [facility] ([id number]) [address], [address] [place] [address] Basophils/100 WBC (Bld) 0.2 % Normal [facility] Comment on above: Performed By: #### B MP #### [facility] ([id number]) [address], [address] [place] [address] Eosinophils (Bld) [#/Vol] 0.0 10*3/uL Normal 0.0-0.4 [facility] Comment on above: Performed By: #### B MP #### [facility] ([id number]) [address], [address] [place] [address] Eosinophils/100 WBC (Bld) 0.0 % Normal [facility] Comment on above: Performed By: #### B MP #### [facility] ([id number]) [address], [address] [place] [address] Erythrocyte distribution width (RBC) [Ratio] 13.8 % Normal 11.5-15.0 [facility] Comment on above: Performed By: #### B MP #### [facility] ([id number]) [address], [address] [place] [address] Hematocrit (Bld) [Volume fraction] 35.9 % Normal 35-47 [facility] Comment on above: Performed By: #### B MP #### [facility] ([id number]) [address], [address] [place] [address] Hemoglobin (Bld) [Mass/Vol] 12.1 g/dL Normal 11.7-15.5 [facility] Comment on above: Performed By: #### B MP #### [facility] ([id number]) [address], [address] [place] [address] Lymphocytes (Bld) [#/Vol] 1.8 10*3/uL Normal 1.0-3.5 [facility] Comment on above: Performed By: #### B MP #### [facility] ([id number]) [address], [address] [place] [address] Lymphocytes/100 WBC (Bld) 17.6 % Normal [facility] Comment on above: Performed By: #### B MP #### [facility] ([id number]) [address], [address] [place] [address] MCH (RBC) [Entitic mass] 30.3 pg Normal 27-34 [facility] Comment on above: Performed By: #### B MP #### [facility] ([id number]) [address], [address] [place] [address] MCHC (RBC) [Mass/Vol] 33.7 g/dL Normal 32-36 [facility] Comment on above: Performed By: #### B MP #### [facility] ([id number]) [address], [address] [place] [address] MCV (RBC) [Entitic vol] 90 fL Normal 80-100 [facility] Comment on above: Performed By: #### B MP #### [facility] ([id number]) [address], [address] [place] [address] Monocytes (Bld) [#/Vol] 0.8 10*3/uL Normal 0-0.9 [facility] Comment on above: Performed By: #### B MP #### [facility] ([id number]) [address], [address] [place] [address] Monocytes/100 WBC (Bld) 7.4 % Normal [facility] Comment on above: Performed By: #### B MP #### [facility] ([id number]) [address], [address] [place] [address] Neutrophils/100 WBC (Bld) 74.8 % Normal [facility] Comment on above: Performed By: #### B MP #### [facility] ([id number]) [address], [address] [place] [address] Platelet mean volume (Bld) [Entitic vol] 7.5 fL Normal 7-12 [facility] Comment on above: Performed By: #### B MP #### [facility] ([id number]) [address], [address] [place] [address] Platelets (Bld) [#/Vol] 436 10*3/uL Normal 150-450 [facility] Comment on above: Performed By: #### B MP #### [facility] ([id number]) [address], [address] [place] [address] RBC COUNT 4.00 X10E12/L Normal 3.80-5.20 [facility] Comment on above: Performed By: #### B MP #### [facility] ([id number]) [address], [address] [place] [address] WBC (Bld) [#/Vol] 10.4 10*3/uL Normal 4.0-11.0 [facility] Comment on above: Performed By: #### B MP #### [facility] ([id number]) [address], [address] [place] [address] COMPREHENSIVE METABOLIC PANE Pee 12-31-2023 Albumin [Mass/Vol] 4.5 g/dL Normal 3.2-5.3 [facility] Comment on above: Performed By: #### B MP #### [facility] ([id number]) [address], [address] [place] [address] ALP [Catalytic activity/Vol] 50 U/L Normal 39-130 [facility] Comment on above: Performed By: #### B MP #### [facility] ([id number]) [address], [address] [place] [address] ALT [Catalytic activity/Vol] 31 U/L Normal 0-31 [facility] Comment on above: Performed By: #### B MP #### [facility] ([id number]) [address], [address] [place] [address] Anion gap [Moles/Vol] 10 mmol/L Normal 5-15 [facility] Comment on above: Performed By: #### B MP #### [facility] ([id number]) [address] [place] [address] AST [Catalytic activity/Vol] 28 U/L Normal 0-41 [facility] Comment on above: Performed By: #### B MP #### [facility] ([id number]) [address] [place] [address] Bilirubin [Mass/Vol] 1.2 mg/dL Normal 0.3-1.2 [facility] Comment on above: Performed By: #### B MP #### [facility] ([id number]) [address] [place] [address] Calcium [Mass/Vol] 9.0 mg/dL Normal 8.5-10.5 [facility] Comment on above: Performed By: #### B MP #### [facility] ([id number]) [address] [place] [address] Chloride [Moles/Vol] 105 mmol/L Normal 98-109 [facility] Comment on above: Performed By: #### B MP #### [facility] ([id number]) [address] [place] [address] CO2 [Moles/Vol] 20 mmol/L Low 22-32 [facility] Comment on above: Performed By: #### B MP #### [facility] ([id number]) [address] [place] [address] Creatinine [Mass/Vol] 0.91 mg/dL Normal 0.40-1.00 [facility] Comment on above: Result Comment: METH OD TRACEABLE TO IDMS STANDARD Performed By: #### B MP #### [facility] ([id number]) [address] [address] [facility] [place] [address] GFR/1.73 sq M.predicted among non-blacks MDRD (S/P/Bld) [Vol rate/Area] 84 mL/min/{1.73_m2} Normal >59 [facility] Comment on above: Result Comment: Reported eGFR is based on the CKD-EPI 2020 equation that does not use a race coefficient. Performed By: #### B MP #### [facility] ([id number]) [address], [address] [place] [address] Glucose [Mass/Vol] 146 mg/dL High 65-99 [facility] Comment on above: Performed By: #### B MP #### [facility] ([id number]) [address] [facility] [place] [address] Potassium [Moles/Vol] 3.7 mmol/L Normal 3.5-5.0 [facility] Comment on above: Performed By: #### B MP #### [facility] ([id number]) [address] [place] [address] Protein [Mass/Vol] 7.7 g/dL Normal 6.0-8.0 [facility] Comment on above: Performed By: #### B MP #### [facility] ([id number]) [address], [address] [place] [address] Sodium [Moles/Vol] 135 mmol/L Normal 134-146 [facility] Comment on above: Performed By: #### B MP #### [facility] ([id number]) [address] [place] [address] Urea nitrogen [Mass/Vol] 12 mg/dL Normal 5-23 [facility] Comment on above: Performed By: #### B MP #### [facility] ([id number]) [address] [place] [address] MAGNESIUMon 12-31-2023 Magnesium [Mass/Vol] 2.0 mg/dL Normal 1.8-2.6 [facility] Comment on above: Performed By: #### B MP #### [facility] ([id number]) [address] [place] [address] POTASSIUMon 12-31-2023 Potassium [Moles/Vol] 3.5 mmol/L Normal 3.5-5.0 [facility] Comment on above: Performed By: #### B MP #### [facility] ([id number]) [address], [address] [place] [address] Troponin I.cardiac High sens itivity method [Mass/Vol]on 12-31-2023 1 HOUR TROP I, HIGH SENSITIVITY 5 ng/L Normal <16 [facility] Comment on above: Performed By: #### B MP #### [facility] ([id number]) [address], [address] [place] [address] TROPONIN I, HIGH SENSITIVITY 5 ng/L Normal <16 [facility] Comment on above: Performed By: #### B MP #### [facility] ([id number]) [address], [address] [place] [address] BASIC METABOLIC PANLon 12-29 Anion gap [Moles/Vol] 13 mmol/L Normal 5-15 [facility] Comment on above: Performed By: #### B MP #### [facility] ([id number]) [address], [address] [place] [address] Calcium [Mass/Vol] 9.1 mg/dL Normal 8.5-10.5 [facility] Comment on above: Performed By: #### B MP #### [facility] ([id number]) [address], [address] [place] [address] Chloride [Moles/Vol] 101 mmol/L Normal 98-109 [facility] Comment on above: Performed By: #### B MP #### [facility] ([id number]) [address], [address] [place] [address] CO2 [Moles/Vol] 22 mmol/L Normal 22-32 [facility] Comment on above: Performed By: #### B MP #### [facility] ([id number]) [address], [address] [place] [address] Creatinine [Mass/Vol] 0.97 mg/dL Normal 0.40-1.00 [facility] Comment on above: Result Comment: METH OD TRACEABLE TO IDMS STANDARD Performed By: #### B MP #### [facility] ([id number]) [address], [address] [place] [address] GFR/1.73 sq M.predicted among non-blacks MDRD (S/P/Bld) [Vol rate/Area] 78 mL/min/{1.73_m2} Normal >59 [facility] Comment on above: Result Comment: Reported eGFR is based on the CKD-EPI 2020 equation that does not use a race coefficient. Performed By: #### B MP #### [facility] ([id number]) [address], [address] [place] [address] Glucose [Mass/Vol] 160 mg/dL High 65-99 [facility] Comment on above: Performed By: #### B MP #### [facility] ([id number]) [address] [place] [address] Potassium [Moles/Vol] 2.9 mmol/L Low 3.5-5.0 [facility] Comment on above: Performed By: #### B MP #### [facility] ([id number]) [address] [place] [address] Sodium [Moles/Vol] 136 mmol/L Normal 134-146 [facility] Comment on above: Performed By: #### B MP #### [facility] ([id number]) [address], [address] [place] [address] Urea nitrogen [Mass/Vol] 15 mg/dL Normal 5-23 [facility] Comment on above: Performed By: #### B MP #### [facility] ([id number]) [address], [address] [place] [address] CBC AND AUTO DIFFon 12-30-19 24 ABSOLUTE BASOPHIL 0.0 X10E9/L Normal 0.0-0.2 [facility] Comment on above: Performed By: #### B MP #### [facility] ([id number]) [address], [address] [place] [address] ABSOLUTE NEUTROPHIL 12.2 X10E9/L High 1.5-6.6 [facility] Comment on above: Performed By: #### B MP #### [facility] ([id number]) [address], [address] [place] [address] Basophils/100 WBC (Bld) 0.1 % Normal [facility] Comment on above: Performed By: #### B MP #### [facility] ([id number]) [address] [place] [address] Eosinophils (Bld) [#/Vol] 0.1 10*3/uL Normal 0.0-0.4 [facility] Comment on above: Performed By: #### B MP #### [facility] ([id number]) [address], [address] [place] [address] Eosinophils/100 WBC (Bld) 0.4 % Normal [facility] Comment on above: Performed By: #### B MP #### [facility] ([id number]) [address], [address] [place] [address] Erythrocyte distribution width (RBC) [Ratio] 13.8 % Normal 11.5-15.0 [facility] Comment on above: Performed By: #### B MP #### [facility] ([id number]) [address], [address] [place] [address] Hematocrit (Bld) [Volume fraction] 38.3 % Normal 35-47 [facility] Comment on above: Performed By: #### B MP #### [facility] ([id number]) [address], [address] [place] [address] Hemoglobin (Bld) [Mass/Vol] 12.9 g/dL Normal 11.7-15.5 [facility] Comment on above: Performed By: #### B MP #### [facility] ([id number]) [address], [address] [place] [address] Lymphocytes (Bld) [#/Vol] 1.4 10*3/uL Normal 1.0-3.5 [facility] Comment on above: Performed By: #### B MP #### [facility] ([id number]) [address], [address] [place] [address] Lymphocytes/100 WBC (Bld) 9.7 % Normal [facility] Comment on above: Performed By: #### B MP #### [facility] ([id number]) [address] [place] [address] MCH (RBC) [Entitic mass] 30.2 pg Normal 27-34 [facility] Comment on above: Performed By: #### B MP #### [facility] ([id number]) [address], [address] [place] [address] MCHC (RBC) [Mass/Vol] 33.7 g/dL Normal 32-36 [facility] Comment on above: Performed By: #### B MP #### [facility] ([id number]) [address], [address] [place] [address] MCV (RBC) [Entitic vol] 90 fL Normal 80-100 [facility] Comment on above: Performed By: #### B MP #### [facility] ([id number]) [address], [address] [place] [address] Monocytes (Bld) [#/Vol] 0.8 10*3/uL Normal 0-0.9 [facility] Comment on above: Performed By: #### B MP #### [facility] ([id number]) [address], [address] [place] [address] Monocytes/100 WBC (Bld) 5.8 % Normal [facility] Comment on above: Performed By: #### B MP #### [facility] ([id number]) [address] [place] [address] Neutrophils/100 WBC (Bld) 84.0 % Normal [facility] Comment on above: Performed By: #### B MP #### [facility] ([id number]) [address], [address] [place] [address] Platelet mean volume (Bld) [Entitic vol] 7.7 fL Normal 7-12 [facility] Comment on above: Performed By: #### B MP #### [facility] ([id number]) [address] [address] [place] [address] Platelets (Bld) [#/Vol] 478 10*3/uL High 150-450 [facility] Comment on above: Performed By: #### B MP #### [facility] ([id number]) [address], [address] [place] [address] RBC COUNT 4.28 X10E12/L Normal 3.80-5.20 [facility] Comment on above: Performed By: #### B MP #### [facility] ([id number]) [address], [address] [place] [address] WBC (Bld) [#/Vol] 14.5 10*3/uL High 4.0-11.0 [facility] Comment on above: Performed By: #### B MP #### [facility] ([id number]) [address], [address] [place] [address] ABSOLUTE BASOPHIL 0.0 X10E9/L Normal 0.0-0.2 [facility] Comment on above: Performed By: #### B MP #### [facility] ([id number]) [address], [address] [place] [address] ABSOLUTE NEUTROPHIL 14.7 X10E9/L High 1.5-6.6 [facility] Comment on above: Performed By: #### B MP #### [facility] ([id number]) [address], [address] [place] [address] Basophils/100 WBC (Bld) 0.2 % Normal [facility] Comment on above: Performed By: #### B MP #### [facility] ([id number]) [address], [address] [place] [address] Eosinophils (Bld) [#/Vol] 0.0 10*3/uL Normal 0.0-0.4 [facility] Comment on above: Performed By: #### B MP #### [facility] ([id number]) [address], [address] [place] [address] Eosinophils/100 WBC (Bld) 0.0 % Normal [facility] Comment on above: Performed By: #### B MP #### [facility] ([id number]) [address], [address] [place] [address] Erythrocyte distribution width (RBC) [Ratio] 13.4 % Normal 11.5-15.0 [facility] Comment on above: Performed By: #### B MP #### [facility] ([id number]) [address] [address] [place] [address] Hematocrit (Bld) [Volume fraction] 41.0 % Normal 35-47 [facility] Comment on above: Performed By: #### B MP #### [facility] ([id number]) [address], [address] [place] [address] Hemoglobin (Bld) [Mass/Vol] 13.9 g/dL Normal 11.7-15.5 [facility] Comment on above: Performed By: #### B MP #### [facility] ([id number]) [address], [facility] [address] [place] [address] Lymphocytes (Bld) [#/Vol] 1.5 10*3/uL Normal 1.0-3.5 [facility] Comment on above: Performed By: #### B MP #### [facility] ([id number]) [address] [address] [place] [address] Lymphocytes/100 WBC (Bld) 8.7 % Normal [facility] Comment on above: Performed By: #### B MP #### [facility] ([id number]) [address], [facility] [address] [place] [address] MCH (RBC) [Entitic mass] 30.3 pg Normal 27-34 [facility] Comment on above: Performed By: #### B MP #### [facility] ([id number]) [address], [address] [place] [address] MCHC (RBC) [Mass/Vol] 33.8 g/dL Normal 32-36 [facility] Comment on above: Performed By: #### B MP #### [facility] ([id number]) [address], [facility] [address] [place] [address] MCV (RBC) [Entitic vol] 89 fL Normal 80-100 [facility] Comment on above: Performed By: #### B MP #### [facility] ([id number]) [address] [address] [place] [address] Monocytes (Bld) [#/Vol] 0.9 10*3/uL Normal 0-0.9 [facility] Comment on above: Performed By: #### B MP #### [facility] ([id number]) [address], [address] [place] [address] Monocytes/100 WBC (Bld) 5.2 % Normal [facility] Comment on above: Performed By: #### B MP #### [facility] ([id number]) [address], [address] [place] [address] Neutrophils/100 WBC (Bld) 85.9 % Normal [facility] Comment on above: Performed By: #### B MP #### [facility] ([id number]) [address] [address] [place] [address] Platelet mean volume (Bld) [Entitic vol] 8.1 fL Normal 7-12 [facility] Comment on above: Performed By: #### B MP #### [facility] ([id number]) [address] [address] [place] [address] Platelets (Bld) [#/Vol] 587 10*3/uL High 150-450 [facility] Comment on above: Performed By: #### B MP #### [facility] ([id number]) [address], [address] [place] [address] RBC COUNT 4.58 X10E12/L Normal 3.80-5.20 [facility] Comment on above: Performed By: #### B MP #### [facility] ([id number]) [address], [address] [place] [address] WBC (Bld) [#/Vol] 17.1 10*3/uL High 4.0-11.0 [facility] Comment on above: Performed By: #### B MP #### [facility] ([id number]) [address], [address] [place] [address] COMPREHENSIVE METABOLIC PANE Pee 12-30-2023 Albumin [Mass/Vol] 5.5 g/dL High 3.2-5.3 [facility] Comment on above: Performed By: #### B MP #### [facility] ([id number]) [address], [address] [place] [address] ALP [Catalytic activity/Vol] 63 U/L Normal 39-130 [facility] Comment on above: Performed By: #### B MP #### [facility] ([id number]) [address], [address] [place] [address] ALT [Catalytic activity/Vol] 39 U/L High 0-31 [facility] Comment on above: Performed By: #### B MP #### [facility] ([id number]) [address], [address] [place] [address] Anion gap [Moles/Vol] 17 mmol/L High 5-15 [facility] Comment on above: Performed By: #### B MP #### [facility] ([id number]) [address], [address] [place] [address] AST [Catalytic activity/Vol] 32 U/L Normal 0-41 [facility] Comment on above: Performed By: #### B MP #### [facility] ([id number]) [address], [address] [place] [address] Bilirubin [Mass/Vol] 0.6 mg/dL Normal 0.3-1.2 [facility] Comment on above: Performed By: #### B MP #### [facility] ([id number]) [address], [address] [place] [address] Calcium [Mass/Vol] 10.1 mg/dL Normal 8.5-10.5 [facility] Comment on above: Performed By: #### B MP #### [facility] ([id number]) [address], [address] [place] [address] Chloride [Moles/Vol] 99 mmol/L Normal 98-109 [facility] Comment on above: Performed By: #### B MP #### [facility] ([id number]) [address], [address] [place] [address] CO2 [Moles/Vol] 21 mmol/L Low 22-32 [facility] Comment on above: Performed By: #### B MP #### [facility] ([id number]) [address], [address] [place] [address] Creatinine [Mass/Vol] 1.19 mg/dL High 0.40-1.00 [facility] Comment on above: Result Comment: METH OD TRACEABLE TO IDMS STANDARD Performed By: #### B MP #### [facility] ([id number]) [address], [address] [place] [address] GFR/1.73 sq M.predicted among non-blacks MDRD (S/P/Bld) [Vol rate/Area] 61 mL/min/{1.73_m2} Normal >59 [facility] Comment on above: Result Comment: Reported eGFR is based on the CKD-EPI 2020 equation that does not use a race coefficient. Performed By: #### B MP #### [facility] ([id number]) [address], [address] [place] [address] Glucose [Mass/Vol] 196 mg/dL High 65-99 [facility] Comment on above: Performed By: #### B MP #### [facility] ([id number]) [address], [address] [place] [address] Potassium [Moles/Vol] 2.8 mmol/L Low 3.5-5.0 [facility] Comment on above: Performed By: #### B MP #### [facility] ([id number]) [address], [address] [place] [address] Protein [Mass/Vol] 9.6 g/dL High 6.0-8.0 [facility] Comment on above: Performed By: #### B MP #### [facility] ([id number]) [address], [address] [place] [address] Sodium [Moles/Vol] 137 mmol/L Normal 134-146 [facility] Comment on above: Performed By: #### B MP #### [facility] ([id number]) [address], [address] [place] [address] Urea nitrogen [Mass/Vol] 19 mg/dL Normal 5-23 [facility] Comment on above: Performed By: #### B MP #### [facility] ([id number]) [address], [address] [place] [address] CT ABDOMEN AND PELVIS W CONT on [...] Bonner MD on 12/30/2023 5:56 AM Normal [facility] DRUG SCREEN, URINEon 024 AMPHETAMINE/METHAMP Negative Normal NEG [facility] Comment on above: Result Comment: AMPH /METH screening cut off = 1000 ng/mL Performed By: #### B MP #### [facility] ([id number]) [address], [address] [place] [address] BARBITURATES Negative Normal NEG [facility] Comment on above: Result Comment: Nini iturates screening cut off value = 200 ng/mL Performed By: #### B MP #### [facility] ([id number]) [address], [address] [place] [address] BENZODIAZEPINES Negative Normal NEG [facility] Comment on above: Result Comment: Ravindra odiazepines screening cut off value = 200 ng/mL Performed By: #### B MP #### [facility] ([id number]) [address], [address] [place] [address] CANNABINOIDS Positive Abnormal NEG [facility] Comment on above: Result Comment: Conf irmation available upon request. Cannabinoids/THC screening cut off value = 50 ng/mL Performed By: #### B MP #### [facility] ([id number]) [address], [address] [place] [address] COCAINE METABOLITE Positive Abnormal NEG [facility] Comment on above: Result Comment: Conf irmation available upon request. Cocaine screening cut off value = 300 ng/mL Performed By: #### B MP #### [facility] ([id number]) [address], [address] [place] [address] ECSTASY Positive Abnormal NEG [facility] Comment on above: Result Comment: Inte rference from Buproprion or Labetalol may cause a positive result, confirmation available upon request. Ecstasy screening cut off value = 500 ng/mL This report is intended for use in clinical monitoring or management of patients. Performed By: #### B MP #### [facility] ([id number]) [address], [address] [place] [address] METHADONE Negative Normal NEG [facility] Comment on above: Result Comment: Meth adone screening cut off value = 300 ng/mL. Performed By: #### B MP #### [facility] ([id number]) [address], [address] [place] [address] OPIATES Negative Normal NEG [facility] Comment on above: Result Comment: Opia rosemarie screening cut off value = 300 ng/mL NOTE: This test is used for the detection of codeine, hydrocodone (>1000 ng/mL), morphine and hydromorphone (>900 ng/mL) in urine. Performed By: #### B MP #### [facility] ([id number]) [address], [address] [place] [address] OXYCODONE Negative Normal NEG [facility] Comment on above: Result Comment: Oxyc odone screening cut off value = 300 ng/mL NOTE: This test is used for the detection of oxycodone and oxymorphone in urine. Performed By: #### B MP #### [facility] ([id number]) [address], [address] [place] [address] PHENCYCLIDINE Negative Normal NEG [facility] Comment on above: Result Comment: Phen cyclidine screening cut off value = 25 ng/mL Performed By: #### B MP #### [facility] ([id number]) [address], [address] [place] [address] HCG ( test) Ql (U)o n 12-30-2023 Beta HCG ( test) Ql (U) Negative Normal NEG [facility] Comment on above: Performed By: #### B MP #### [facility] ([id number]) [address], [address] [place] [address] LIPASEon 12-30-2023 Lipase [Catalytic activity/Vol] 29 U/L Normal 17-40 [facility] Comment on above: Performed By: #### B MP #### [facility] ([id number]) [address], [address] [place] [address] SARS/FLU A+B/RSV by NAAT/Mol ecularon 12-30-2023 SARS/FLU [...] operators who are performing tests using either Gene[employer] DX or GeneMacrom[employer] Infinity systems and is limited to laboratories [...] repeat. Fact Sheet for Healthcare Providers: https://www.fda.gov/media/1 02514/download Fact Sheet for Patients: https://www.fda.gov/media/1 80394/download Normal [facility] Comment on above: Performed By: #### B MP #### [facility] ([id number]) [address] [place] [address], [address] [place] [address] URINE CULTUREon 12-30-2023 Bacteria identified Cx Nom [...] 8 F TRIMETH/SULFAMETHOXAZOLE R >=16/304 F Resistant [facility] Comment on above: Performed By: #### B MP #### [facility] ([id number]) [address] [place] [address], [address] [place] [address] URN MACROSCOPIC NURon 2023 BILIRUBIN SAE Small Abnormal NEG [facility] Comment on above: Performed By: #### B MP #### [facility] ([id number]) [address] [place] [address], [address] [place] [address] BLOOD/HGB SAE MODERATE Abnormal NEG [facility] Comment on above: Performed By: #### B MP #### [facility] ([id number]) [address], [address] [place] [address] GLUCOSE SAE Negative Normal NEG [facility] Comment on above: Performed By: #### B MP #### [facility] ([id number]) [address], [address] [place] [address] KETONES SAE 15 mg/dL Abnormal NEG [facility] Comment on above: Performed By: #### B MP #### [facility] ([id number]) [address], [address] [place] [address] LEUKOCYTE ESTERASE SAE Negative Normal NEG [facility] Comment on above: Performed By: #### B MP #### [facility] ([id number]) [address], [address] [place] [address] NITRITE SAE Positive Abnormal NEG [facility] Comment on above: Performed By: #### B MP #### [facility] ([id number]) [address], [address] [place] [address] PH SAE 5.5 Normal 5.0-8.5 [facility] Comment on above: Performed By: #### B MP #### [facility] ([id number]) [address], [address] [place] [address] PROTEIN SAE >=300 Abnormal NEG [facility] Comment on above: Performed By: #### B MP #### [facility] ([id number]) [address], [address] [place] [address] SPECIFIC GRAVITY SAE >=1.030 Normal 1.003-1 .03 5 [facility] Comment on above: Performed By: #### B MP #### [facility] ([id number]) [address], [address] [place] [address] UROBILINOGEN SAE 0.2 eu/dL Normal <1.1 [facility] Comment on above: Performed By: #### B MP #### [facility] ([id number]) [address], [address] [place] [address] MR KNEE LEFT WO IV CONTRASTo n [...] Comment: MRI L T knee w/o at [facility]. Orbits if needed. CBC AND AUTO DIFFon 10-16-19 24 ABSOLUTE BASOPHIL 0.1 X10E9/L Normal 0.0-0.2 [facility] Comment on above: Performed By: #### C PAVITHRA HAYNES, 6873-4 #### [facility] ([id number]) [address] [place] [address] ABSOLUTE NEUTROPHIL 7.4 X10E9/L High 1.5-6.6 [facility] Comment on above: Performed By: #### C PAVITHRA HAYNES, 6873-4 #### [facility] ([id number]) [address] [place] [address] Basophils/100 WBC (Bld) 0.7 % Normal [facility] Comment on above: Performed By: #### C PAVITHRA HAYNES, 734 #### [facility] ([id number]) [address] [place] [address] Eosinophils (Bld) [#/Vol] 0.0 10*3/uL Normal 0.0-0.4 [facility] Comment on above: Performed By: #### PAVITHRA Ayon BCA, 6872-08 #### [facility] ([id number]) [address] [place] [address] Eosinophils/100 WBC (Bld) 0.3 % Normal [facility] Comment on above: Performed By: #### PAVITHRA Ayon BCA, 4 #### [facility] ([id number]) [address] [place] [address] Erythrocyte distribution width (RBC) [Ratio] 14.2 % Normal 11.5-15.0 [facility] Comment on above: Performed By: #### PAVITHRA Ayon BCA, 6872-08 #### [facility] ([id number]) [address] [place] [address] Hematocrit (Bld) [Volume fraction] 37.8 % Normal 35-47 [facility] Comment on above: Performed By: #### PAVITHRA Ayon BCA, 734 #### [facility] ([id number]) [address] [place] [address] Hemoglobin (Bld) [Mass/Vol] 13.2 g/dL Normal 11.7-15.5 [facility] Comment on above: Performed By: #### PAVITHRA Ayon BCA, 734 #### [facility] ([id number]) [address] [place] [address] Lymphocytes (Bld) [#/Vol] 1.3 10*3/uL Normal 1.0-3.5 [facility] Comment on above: Performed By: #### PAVITHRA Ayon BCA, 4 #### [facility] ([id number]) [address] [place] [address] Lymphocytes/100 WBC (Bld) 14.5 % Normal [facility] Comment on above: Performed By: #### C PAVITHRA HAYNES, 6872-08 #### [facility] ([id number]) [address] [place] [address] MCH (RBC) [Entitic mass] 30.3 pg Normal 27-34 [facility] Comment on above: Performed By: #### PAVITHRA Ayon BCA, 6872-08 #### [facility] ([id number]) [address] [place] [address] MCHC (RBC) [Mass/Vol] 34.9 g/dL Normal 32-36 [facility] Comment on above: Performed By: #### PAVITHRA Ayon BCA, 6872-08 #### [facility] ([id number]) [address] [place] [address] MCV (RBC) [Entitic vol] 87 fL Normal 80-100 [facility] Comment on above: Performed By: #### PAVITHRA Ayon BCA, 6872-08 #### [facility] ([id number]) [address] [place] [address] Monocytes (Bld) [#/Vol] 0.3 10*3/uL Normal 0-0.9 [facility] Comment on above: Performed By: #### PAVITHRA Ayon BCA, 6872-08 #### [facility] ([id number]) [address] [place] [address] Monocytes/100 WBC (Bld) 2.8 % Normal [facility] Comment on above: Performed By: #### PAVITHRA Ayon BCA, 73 #### [facility] ([id number]) [address] [place] [address] Neutrophils/100 WBC (Bld) 81.7 % Normal [facility] Comment on above: Performed By: #### PAVITHRA Ayon BCA, 6873-4 #### [facility] ([id number]) [address] [place] [address] Platelet mean volume (Bld) [Entitic vol] 7.7 fL Normal 7-12 [facility] Comment on above: Performed By: #### PAVITHRA Ayon BCA, 73-4 #### [facility] ([id number]) [address] [place] [address] Platelets (Bld) [#/Vol] 407 10*3/uL Normal 150-450 [facility] Comment on above: Performed By: #### PAVITHRA Ayon BCA, 6873-4 #### [facility] ([id number]) [address] [place] [address] RBC COUNT 4.36 X10E12/L Normal 3.80-5.20 [facility] Comment on above: Performed By: #### PAVITHRA Ayon BCA, 6873-4 #### [facility] ([id number]) [address] [place] [address] WBC (Bld) [#/Vol] 9.1 10*3/uL Normal 4.0-11.0 [facility] Comment on above: Performed By: #### PAVITHRA Ayon BCA, 6873-4 #### [facility] ([id number]) [address] [place] [address] COMPREHENSIVE METABOLIC PANE Pee 10-16-2023 Albumin [Mass/Vol] 4.7 g/dL Normal 3.2-5.3 [facility] Comment on above: Performed By: #### PAVITHRA Ayon BCA, 6873-4 #### [facility] ([id number]) [address] [place] [address] ALP [Catalytic activity/Vol] 60 U/L Normal 39-130 [facility] Comment on above: Performed By: #### PAVITHRA Ayon BCA, 6873-4 #### [facility] ([id number]) [address] [place] [address] ALT [Catalytic activity/Vol] 58 U/L High 0-31 [facility] Comment on above: Performed By: #### PAVITHRA Ayon BCA, 73-4 #### [facility] ([id number]) [address] [place] [address] Anion gap [Moles/Vol] 12 mmol/L Normal 5-15 [facility] Comment on above: Performed By: #### PAVITHRA Ayon BCA, 73-4 #### [facility] ([id number]) [address] [place] [address] AST [Catalytic activity/Vol] 38 U/L Normal 0-41 [facility] Comment on above: Performed By: #### PAVITHRA Ayon BCA, 6873-4 #### [facility] ([id number]) [address] [place] [address] Bilirubin [Mass/Vol] 0.4 mg/dL Normal 0.3-1.2 [facility] Comment on above: Performed By: #### PAVITHRA Ayon BCA, 6873-4 #### [facility] ([id number]) [address] [place] [address] Calcium [Mass/Vol] 9.4 mg/dL Normal 8.5-10.5 [facility] Comment on above: Performed By: #### C PAVITHRA HAYNES, 6873-4 #### [facility] ([id number]) [address] [place] [address] Chloride [Moles/Vol] 106 mmol/L Normal 98-109 [facility] Comment on above: Performed By: #### PAVITHRA Ayon BCA, 6873-4 #### [facility] ([id number]) [address] [place] [address] CO2 [Moles/Vol] 17 mmol/L Low 22-32 [facility] Comment on above: Performed By: #### C PAVITHRA HAYNES, 6873-4 #### [facility] ([id number]) [address] [place] [address] Creatinine [Mass/Vol] 0.85 mg/dL Normal 0.40-1.00 [facility] Comment on above: Result Comment: METH OD TRACEABLE TO IDMS STANDARD Performed By: #### C PAVITHRA HAYNES, 6873-4 #### [facility] ([id number]) [address] [place] [address] eGFR (CKD-EPI) NON-RACE DEPENDENT >90 Normal >59 [facility] Comment on above: Result Comment: Reported eGFR is based on the CKD-EPI 2020 equation that does not use a race coefficient. Performed By: #### C PAVITHRA HAYNES, 6873-4 #### [facility] ([id number]) [address] [place] [address] Glucose [Mass/Vol] 254 mg/dL High 65-99 [facility] Comment on above: Performed By: #### PAVITHRA Ayon BCA, 6873-4 #### [facility] ([id number]) [address] [place] [address] Potassium [Moles/Vol] 3.6 mmol/L Normal 3.5-5.0 [facility] Comment on above: Performed By: #### C PAVITHRA HAYNES, 6873-4 #### [facility] ([id number]) [address] [place] [address] Protein [Mass/Vol] 8.1 g/dL High 6.0-8.0 [facility] Comment on above: Performed By: #### PAVITHRA Ayon BCA, 6873-4 #### [facility] ([id number]) [address] [facility] [place], [place] [address] Sodium [Moles/Vol] 135 mmol/L Normal 134-146 [facility] Comment on above: Performed By: #### C DALLAS, PAVITHRA, 6873-4 #### [facility] ([id number]) [address] [place] [address] Urea nitrogen [Mass/Vol] 9 mg/dL Normal 5-23 [facility] Comment on above: Performed By: #### C DALLAS, PAVITHRA, 6873-4 #### [facility] ([id number]) [address] [place] [id number] LIPASEon 10-16-2023 Lipase [Catalytic activity/Vol] 35 U/L Normal 17-40 [facility] Comment on above: Performed By: #### B MP #### [facility] [facility] ([id number]) [address] [place] [address], [address] [place] [address] Glucose Glucometer (BldC) [M ass/Vol]on 10-09-2023 Glucose [Mass/Vol] 142 mg/dL High 65-99 [facility] HCG ( test) Ql (U)o n 10-09-2023 Beta HCG ( test) Ql (U) Negative Normal NEG [facility] Comment on above: Performed By: #### 2 106-3 #### [facility] ([id number]) [address] [place] [address] Surgical Pathologyon 024 Surgical Pathology Normal [facility] Comment on above: Result Comment: [facility] [address] [place] [address] Surgical Pathology Consultation ADDENDUM [place] Patient Name:XIANG MAHONEY:1990 (Age: 32)Gender:FTaken:4Reported:5/24/2024Physician(s):Rosanna James MD ([phone])Copy To: Rec. #:[id number]: #[id number] Final Pathologic Diagnosis 1. Duodenum, biopsy: Duodenal [...] of TissueCypher dated 11/12/2023 are received from [facility] [place], [place]. Please see the complete report from [facility] in the patient's electronic medical record. Electronically Signed Out Radha Shelby MD Interpretation performed at [facility], [address] [place] [address], License number: [id number]. Clinical History Nausea, vomiting, generalized abdominal pain, [...] submitted in a single cassette. (1, ns, [id number],m7) DM. 2. Received in formalin labeled [place], gastric biopsy are five light alvarez soft tissue bits, 0.1-0.5 cm. The specimen is filtered and entirely submitted in a single cassette. (1, ns, [id number],m7) DM. 3. Received in formalin labeled [place], distal esophageal biopsy at 34 are six light alvarez soft tissue bits, 0.1-0.5 cm. The specimen is filtered and entirely submitted in a single cassette. (1, ns, [id number],m7) DM. 4. Received in formalin labeled [place], distal esophageal biopsy at 32 are five light alvarez soft tissue bits, 0.1-0.3 cm. The specimen is filtered and entirely submitted in a single cassette. (1, ns, [id number],m7) DM. 5. Received in formalin labeled [place], right side random colon biopsy are six light alvarez soft tissue bits, 0.2-0.7 cm. The specimen is filtered and entirely submitted in a single cassette. (1, ns, [id number],m7) DM. 6. Received in formalin labeled [place], left side random colon biopsy are six light alvarez soft tissue bits, 0.2-0.4 cm. The specimen is filtered and entirely submitted in a single cassette. (1, ns, [id number],m7) DM. dm/10/09/2023NSK Specimen(s) Received 1: Duodenum biopsy 2: Gastric biopsy 3: Esophageal distal biopsy @36 4: Esophageal distal biopsy @34 5: Random colon biopsy, right side 6: Random colon biopsy, left side Fee Codes(s): 1; 90019 2; 25616 3; 81622 4; 37826 5; 37801 6; 60538 CBC AND AUTO DIFFon 08-24-19 24 ABSOLUTE BASOPHIL 0.0 X10E9/L Normal 0.0-0.2 [facility] Comment on above: Performed By: #### C BCA, BMP, 6873-4 #### [facility] ([id number]) [address] [place] [address] ABSOLUTE NEUTROPHIL 4.4 X10E9/L Normal 1.5-6.6 [facility] Comment on above: Performed By: #### PAVITHRA Ayon BCA, 6873-4 #### [facility] ([id number]) [address] [place] [address] 24926 Basophils/100 WBC (Bld) 0.4 % Normal [facility] Comment on above: Performed By: #### PAVITHRA Ayon BCA, 734 #### [facility] ([id number]) [address] [place] [address] 77576 Eosinophils (Bld) [#/Vol] 0.1 10*3/uL Normal 0.0-0.4 [facility] Comment on above: Performed By: #### PAVITHRA Ayon BCA, 734 #### [facility] ([id number]) [address] [place] [address] 27049 Eosinophils/100 WBC (Bld) 1.0 % Normal [facility] Comment on above: Performed By: #### PAVITHRA Ayon BCA, 734 #### [facility] ([id number]) [address] [place] [address] 14219 Erythrocyte distribution width (RBC) [Ratio] 14.2 % Normal 11.5-15.0 [facility] Comment on above: Performed By: #### PAVITHRA Ayon BCA, 73-4 #### [facility] ([id number]) [address] [place] [address] 085[address] Hematocrit (Bld) [Volume fraction] 41.5 % Normal 35-47 [facility] Comment on above: Performed By: #### PAVITHRA Ayon BCA, 6873-4 #### [facility] ([id number]) [address] [place] [address] 82568 Hemoglobin (Bld) [Mass/Vol] 14.0 g/dL Normal 11.7-15.5 [facility] Comment on above: Performed By: #### C PAVITHRA HAYNES, 734 #### [facility] ([id number]) [address] [place] [address] 25082 Lymphocytes (Bld) [#/Vol] 2.0 10*3/uL Normal 1.0-3.5 [facility] Comment on above: Performed By: #### PAVITHRA Ayon BCA, 6872-08 #### [facility] ([id number]) [address] [place] [address] 61772 Lymphocytes/100 WBC (Bld) 28.4 % Normal [facility] Comment on above: Performed By: #### PAVITHRA Ayon BCA, 6872-08 #### [facility] ([id number]) [address] [place] [address] 21613 MCH (RBC) [Entitic mass] 30.1 pg Normal 27-34 [facility] Comment on above: Performed By: #### PAVITHRA Ayon BCA, 6872-08 #### [facility] ([id number]) [address] [place] [address] 72085 MCHC (RBC) [Mass/Vol] 33.7 g/dL Normal 32-36 [facility] Comment on above: Performed By: #### PAVITHRA Ayon BCA, 6872-08 #### [facility] ([id number]) [address] [place] [address] 56803 MCV (RBC) [Entitic vol] 89 fL Normal 80-100 [facility] Comment on above: Performed By: #### PAVITHRA Ayon BCA, 6872-08 #### [facility] ([id number]) [address] [place] [address] 01146 Monocytes (Bld) [#/Vol] 0.6 10*3/uL Normal 0-0.9 [facility] Comment on above: Performed By: #### PAVITHRA Ayon BCA, 6873-4 #### [facility] ([id number]) [address] [place] [address] 78906 Monocytes/100 WBC (Bld) 8.7 % Normal [facility] Comment on above: Performed By: #### PAVITHRA Ayon BCA, 6873-4 #### [facility] ([id number]) [address] [place] [address] 81593 Neutrophils/100 WBC (Bld) 61.5 % Normal [facility] Comment on above: Performed By: #### PAVITHRA Ayon BCA, 6873-4 #### [facility] ([id number]) [address] [place] [address] 44573 Platelet mean volume (Bld) [Entitic vol] 7.9 fL Normal 7-12 [facility] Comment on above: Performed By: #### PAVITHRA Ayon BCA, 6873-4 #### [facility] ([id number]) [address] [place] [address] 54816 Platelets (Bld) [#/Vol] 372 10*3/uL Normal 150-450 [facility] Comment on above: Performed By: #### PAVITHRA Ayon BCA, 6873-4 #### [facility] ([id number]) [address] [place] [address] 62819 RBC COUNT 4.65 X10E12/L Normal 3.80-5.20 [facility] Comment on above: Performed By: #### PAVITHRA Ayon BCA, 6873-4 #### [facility] ([id number]) [address] [place] [address] 81475 WBC (Bld) [#/Vol] 7.1 10*3/uL Normal 4.0-11.0 [facility] Comment on above: Performed By: #### PAVITHRA yAon BCA, 6873-4 #### [facility] ([id number]) [address] [place] [address]241 COMPREHENSIVE METABOLIC PANE Pee 08-24-2023 Albumin [Mass/Vol] 4.5 g/dL Normal 3.2-5.3 [facility] Comment on above: Performed By: #### C PAVITHRA HAYNES, 6873-4 #### [facility] ([id number]) [address] [place] [address] 09899 ALP [Catalytic activity/Vol] 44 U/L Normal 39-130 [facility] Comment on above: Performed By: #### PAVITHRA Ayon BCA, 6873-4 #### [facility] ([id number]) [address] [place] [address] 23726 ALT [Catalytic activity/Vol] 39 U/L High 0-31 [facility] Comment on above: Performed By: #### PAVITHRA Ayon BCA, 6873-4 #### [facility] ([id number]) [address] [place] [address] 81104 Anion gap [Moles/Vol] 9 mmol/L Normal 5-15 [facility] Comment on above: Performed By: #### PAVITHRA Ayon BCA, 6873-4 #### [facility] ([id number]) [address] [place] [address] 12139 AST [Catalytic activity/Vol] 38 U/L Normal 0-41 [facility] Comment on above: Performed By: #### PAVITHRA Ayon BCA, 6873-4 #### [facility] ([id number]) [address] [place] [address] 92060 Bilirubin [Mass/Vol] 0.8 mg/dL Normal 0.3-1.2 [facility] Comment on above: Performed By: #### PAVITHRA Ayon BCA, 6873-4 #### [facility] ([id number]) [address] [place] [address] 97210 Calcium [Mass/Vol] 8.9 mg/dL Normal 8.5-10.5 [facility] Comment on above: Performed By: #### C PAVITHRA HAYNES, 6873-4 #### [facility] ([id number]) [address] [place] [address] 28846 Chloride [Moles/Vol] 103 mmol/L Normal 98-109 [facility] Comment on above: Performed By: #### C PAVITHRA HAYNES, 6873-4 #### [facility] ([id number]) [address] [place] [address] 94182 CO2 [Moles/Vol] 20 mmol/L Low 22-32 [facility] Comment on above: Performed By: #### C PAVITHRA HAYNES, 6873-4 #### [facility] ([id number]) [address] [place] [address] 05793 Creatinine [Mass/Vol] 0.84 mg/dL Normal 0.40-1.00 [facility] Comment on above: Result Comment: METH OD TRACEABLE TO IDMS STANDARD Performed By: #### C PAVITHRA HAYNES, 6873-4 #### [facility] ([id number]) [address] [place] [address] 22834 eGFR (CKD-EPI) NON-RACE DEPENDENT >90 Normal >59 [facility] Comment on above: Result Comment: Reported eGFR is based on the CKD-EPI 2020 equation that does not use a race coefficient. Performed By: #### C PAVITHRA HAYNES, 6873-4 #### [facility] ([id number]) [address] [place] [address] 01164 Glucose [Mass/Vol] 127 mg/dL High 65-99 [facility] Comment on above: Performed By: #### C PAVITHRA HAYNES, 6873-4 #### [facility] ([id number]) [address] [place] [address] 79278 Potassium [Moles/Vol] 3.8 mmol/L Normal 3.5-5.0 [facility] Comment on above: Performed By: #### C PAVITHRA HAYNES, 6873-4 #### [facility] ([id number]) [address] [place] [address] 37550 Protein [Mass/Vol] 7.5 g/dL Normal 6.0-8.0 [facility] Comment on above: Performed By: #### PAVITHRA Ayon BCA, 6873-4 #### [facility] ([id number]) [address] [place] [address] 94925 Sodium [Moles/Vol] 132 mmol/L Low 134-146 [facility] Comment on above: Performed By: #### PAVITHRA Ayon BCA, 6873-4 #### [facility] ([id number]) [address] [place] [address] 60006 Urea nitrogen [Mass/Vol] 10 mg/dL Normal 5-23 [facility] Comment on above: Performed By: #### PAVITHRA Ayon BCA, 6873-4 #### [facility] ([id number]) [address] [place] [address] 65912 Glucose Glucometer (BldC) [M ass/Vol]on 08-24-2023 Glucose [Mass/Vol] 121 mg/dL High 65-99 [facility] Glucose [Mass/Vol] 122 mg/dL High 65-99 [facility] MAGNESIUMon 08-24-2023 Magnesium [Mass/Vol] 2.2 mg/dL Normal 1.8-2.6 [facility] Comment on above: Performed By: #### PAVITHRA Ayon BCA, 6873-4 #### [facility] ([id number]) [address] [place] [address] 76003 Magnesium [Mass/Vol] 1.9 mg/dL Normal 1.8-2.6 [facility] Comment on above: Performed By: #### PAVITHRA Ayon BCA, 6873-4 #### [facility] ([id number]) [address] [place] [address] 17240 Magnesium Ionized ISE (Bld) [Moles/Vol]on 08-24-2023 Magnesium [Moles/Vol] 0.69 mmol/L Normal 0.45-0.74 [facility] Comment on above: Result Comment: NEW REFERENCE RANGE Performed By: #### PAVITHRA Ayon BCA, 6873-4 #### [facility] ([id number]) [address] [place] [address] 41153 CBC AND AUTO DIFFon 08-23-19 24 ABSOLUTE BASOPHIL 0.0 X10E9/L Normal 0.0-0.2 [facility] Comment on above: Performed By: #### PAVITHRA Ayon BCA, 734 #### [facility] ([id number]) [address] [place] [address] 48996 ABSOLUTE NEUTROPHIL 4.7 X10E9/L Normal 1.5-6.6 [facility] Comment on above: Performed By: #### PAVITHRA Ayon BCA, 4 #### [facility] ([id number]) [address] [place] [address] 88115 Basophils/100 WBC (Bld) 0.6 % Normal [facility] Comment on above: Performed By: #### PAVITHRA Ayon BCA, 734 #### [facility] ([id number]) [address] [place] [address] 59321 Eosinophils (Bld) [#/Vol] 0.0 10*3/uL Normal 0.0-0.4 [facility] Comment on above: Performed By: #### PAVITHRA Ayon BCA, 73-4 #### [facility] ([id number]) [address] [place] [address] 95086 Eosinophils/100 WBC (Bld) 0.4 % Normal [facility] Comment on above: Performed By: #### PAVITHRA Ayon BCA, 73-4 #### [facility] ([id number]) [address] [place] [address] 01832 Erythrocyte distribution width (RBC) [Ratio] 14.2 % Normal 11.5-15.0 [facility] Comment on above: Performed By: #### Nany HAYNES [facility], 73-4 #### [facility] ([id number]) [address] [place] [address] 85277 Hematocrit (Bld) [Volume fraction] 38.4 % Normal 35-47 [facility] Comment on above: Performed By: #### Nany HAYNES [facility], 73 #### [facility] ([id number]) [address] [place] [address] 11373 Hemoglobin (Bld) [Mass/Vol] 13.1 g/dL Normal 11.7-15.5 [facility] Comment on above: Performed By: #### Nany HAYNES [facility], 6872-08 #### [facility] ([id number]) [address] [place] [address] 69801 Lymphocytes (Bld) [#/Vol] 2.1 10*3/uL Normal 1.0-3.5 [facility] Comment on above: Performed By: #### Nany HAYNES [facility], 734 #### [facility] ([id number]) [address] [place] [address] 99721 Lymphocytes/100 WBC (Bld) 27.6 % Normal [facility] Comment on above: Performed By: #### Nany HAYNES [facility], 734 #### [facility] ([id number]) [address] [place] [address] 16794 MCH (RBC) [Entitic mass] 30.6 pg Normal 27-34 [facility] Comment on above: Performed By: #### Nany HAYNES [facility], 73-4 #### [facility] ([id number]) [address] [place] [address] 52652 MCHC (RBC) [Mass/Vol] 34.2 g/dL Normal 32-36 [facility] Comment on above: Performed By: #### PAVITHRA Ayon BCA, 734 #### [facility] ([id number]) [address] [place] [address] 56249 MCV (RBC) [Entitic vol] 90 fL Normal 80-100 [facility] Comment on above: Performed By: #### PAVITHRA Ayon BCA, 6872-08 #### [facility] ([id number]) [address] [place] [address] 84005 Monocytes (Bld) [#/Vol] 0.7 10*3/uL Normal 0-0.9 [facility] Comment on above: Performed By: #### PAVITHRA Ayon BCA, 734 #### [facility] ([id number]) [address] [place] [address] 70825 Monocytes/100 WBC (Bld) 8.8 % Normal [facility] Comment on above: Performed By: #### PAVITHRA Ayon BCA, 4 #### [facility] ([id number]) [address] [place] [address] 29062 Neutrophils/100 WBC (Bld) 62.6 % Normal [facility] Comment on above: Performed By: #### PAVITHRA Ayon BCA, 6872-08 #### [facility] ([id number]) [address] [place] [address] 37173 Platelet mean volume (Bld) [Entitic vol] 7.9 fL Normal 7-12 [facility] Comment on above: Performed By: #### PAVITHRA Ayon BCA, 73 #### [facility] ([id number]) [address] [place] [address] 31352 Platelets (Bld) [#/Vol] 374 10*3/uL Normal 150-450 [facility] Comment on above: Performed By: #### PAVITHRA Ayon BCA, 73 #### [facility] ([id number]) [address] [place] [address] 77688 RBC COUNT 4.29 X10E12/L Normal 3.80-5.20 [facility] Comment on above: Performed By: #### C [place] BMP, 6873-4 #### [facility] ([id number]) [address] [place] [address] 06082 WBC (Bld) [#/Vol] 7.5 10*3/uL Normal 4.0-11.0 [facility] Comment on above: Performed By: #### PAVITHRA Ayon BCA, 6873-4 #### [facility] ([id number]) [address] [place] [address] 51530 COMPREHENSIVE METABOLIC PANE Pee 08-23-2023 Albumin [Mass/Vol] 4.3 g/dL Normal 3.2-5.3 [facility] Comment on above: Performed By: #### Nany HAYNES BMP, 6873-4 #### [facility] ([id number]) [address] [place] [address] 09289 ALP [Catalytic activity/Vol] 40 U/L Normal 39-130 [facility] Comment on above: Performed By: #### Nany HAYNES BMP, 6873-4 #### [facility] ([id number]) [address] [place] [address] 53459 ALT [Catalytic activity/Vol] 36 U/L High 0-31 [facility] Comment on above: Performed By: #### Nany HAYNES, BMP, 6873-4 #### [facility] ([id number]) [address] [place] [address] 43699 Anion gap [Moles/Vol] 9 mmol/L Normal 5-15 [facility] Comment on above: Performed By: #### Nany HAYNES, BMP, 6873-4 #### [facility] ([id number]) [address] [place] [address] 62710 AST [Catalytic activity/Vol] 34 U/L Normal 0-41 [facility] Comment on above: Performed By: #### PAVITHRA Ayon BCA, 6873-4 #### [facility] ([id number]) [address] [place] [address] 70200 Bilirubin [Mass/Vol] 0.7 mg/dL Normal 0.3-1.2 [facility] Comment on above: Performed By: #### C PAVITHRA HAYNES, 73-4 #### [facility] ([id number]) [address] [place] [address] 47191 Calcium [Mass/Vol] 8.8 mg/dL Normal 8.5-10.5 [facility] Comment on above: Performed By: #### PAVITHRA Ayon BCA, 73-4 #### [facility] ([id number]) [address] [place] [address] 46653 Chloride [Moles/Vol] 103 mmol/L Normal 98-109 [facility] Comment on above: Performed By: #### PAVITHRA Ayon BCA, 6873-4 #### [facility] ([id number]) [address] [place] [address] 99288 CO2 [Moles/Vol] 20 mmol/L Low 22-32 [facility] Comment on above: Performed By: #### PAVITHRA Ayon BCA, 73-4 #### [facility] ([id number]) [address] [place] [address] 15077 Creatinine [Mass/Vol] 0.76 mg/dL Normal 0.40-1.00 [facility] Comment on above: Result Comment: METH OD TRACEABLE TO IDMS STANDARD Performed By: #### C PAVITHRA HAYNES, 6873-4 #### [facility] ([id number]) [address] [place] [address] 17576 eGFR (CKD-EPI) NON-RACE DEPENDENT >90 Normal >59 [facility] Comment on above: Result Comment: Reported eGFR is based on the CKD-EPI 2020 equation that does not use a race coefficient. Performed By: #### C PAVITHRA HAYNES, 6873-4 #### [facility] ([id number]) [address] [place] [address] 83389 Glucose [Mass/Vol] 139 mg/dL High 65-99 [facility] Comment on above: Performed By: #### PAVITHRA Ayon BCA, 6873-4 #### [facility] ([id number]) [address] [place] [address] 62265 Potassium [Moles/Vol] 3.7 mmol/L Normal 3.5-5.0 [facility] Comment on above: Performed By: #### PAVITHRA Ayon BCA, 6873-4 #### [facility] ([id number]) [address] [place] [address] 15219 Protein [Mass/Vol] 7.3 g/dL Normal 6.0-8.0 [facility] Comment on above: Performed By: #### PAVITHRA Ayon BCA, 6873-4 #### [facility] ([id number]) [address] [place] [address] 52233 Sodium [Moles/Vol] 132 mmol/L Low 134-146 [facility] Comment on above: Performed By: #### PAVITHRA Ayon BCA, 6873-4 #### [facility] ([id number]) [address] [place] [address] 67808 Urea nitrogen [Mass/Vol] 9 mg/dL Normal 5-23 [facility] Comment on above: Performed By: #### PAVITHRA Ayon BCA, 6873-4 #### [facility] ([id number]) [address] [place] [address] 19697 Glucose Glucometer (BldC) [M ass/Vol]on 08-23-2023 Glucose [Mass/Vol] 103 mg/dL High 65-99 [facility] Glucose [Mass/Vol] 109 mg/dL High 65-99 [facility] Glucose [Mass/Vol] 164 mg/dL High 65-99 [facility] Glucose [Mass/Vol] 113 mg/dL High 65-99 [facility] MAGNESIUMon 08-23-2023 Magnesium [Mass/Vol] 2.3 mg/dL Normal 1.8-2.6 [facility] Comment on above: Performed By: #### C DALLAS [facility], 6873-4 #### [facility] ([id number]) [address] [place] [address] 53768 Magnesium [Mass/Vol] 1.9 mg/dL Normal 1.8-2.6 [facility] Comment on above: Performed By: #### Nany HAYNES [facility], 6873-4 #### [facility] ([id number]) [address] [place] [address] 99799 POTASSIUMon 08-23-2023 Potassium [Moles/Vol] 3.9 mmol/L Normal 3.5-5.0 [facility] Comment on above: Performed By: #### Nany HAYNES [facility], 6873-4 #### [facility] ([id number]) [address] [place] [address] 98462 CBC AND AUTO DIFFon 08-22-19 24 ABSOLUTE BASOPHIL 0.1 X10E9/L Normal 0.0-0.2 [facility] Comment on above: Performed By: #### V BG #### [facility] ([id number]) [address] [place] [address] 89338 ABSOLUTE NEUTROPHIL 5.7 X10E9/L Normal 1.5-6.6 [facility] Comment on above: Performed By: #### V BG #### [facility] ([id number]) [address] [place] [address] 69637 Basophils/100 WBC (Bld) 0.8 % Normal [facility] Comment on above: Performed By: #### V BG #### [facility] ([id number]) [address] [place] [address] 02315 Eosinophils (Bld) [#/Vol] 0.0 10*3/uL Normal 0.0-0.4 [facility] Comment on above: Performed By: #### V BG #### [facility] ([id number]) [address] [place] [address] 29877 Eosinophils/100 WBC (Bld) 0.2 % Normal [facility] Comment on above: Performed By: #### V BG #### [facility] ([id number]) [address] [place] [address] 20015 Erythrocyte distribution width (RBC) [Ratio] 13.8 % Normal 11.5-15.0 [facility] Comment on above: Performed By: #### V BG #### [facility] ([id number]) [address] [place] [address] 43360 Hematocrit (Bld) [Volume fraction] 39.3 % Normal 35-47 [facility] Comment on above: Performed By: #### V BG #### [facility] ([id number]) [address] [place] [address] [id number] Hemoglobin (Bld) [Mass/Vol] 13.3 g/dL Normal 11.7-15.5 [facility] Comment on above: Performed By: #### V BG #### [facility] ([id number]) [address] [place] [address] [id number] Lymphocytes (Bld) [#/Vol] 1.9 10*3/uL Normal 1.0-3.5 [facility] Comment on above: Performed By: #### V BG #### [facility] ([id number]) [address] [place] [address] [id number] Lymphocytes/100 WBC (Bld) 22.9 % Normal [facility] Comment on above: Performed By: #### V BG #### [facility] ([id number]) [address] [place] [address] 40485 MCH (RBC) [Entitic mass] 30.1 pg Normal 27-34 [facility] Comment on above: Performed By: #### V BG #### [facility] ([id number]) [address] [place] [address] [id number] MCHC (RBC) [Mass/Vol] 33.7 g/dL Normal 32-36 [facility] Comment on above: Performed By: #### V BG #### [facility] ([id number]) [address] [place] [address] 10079 MCV (RBC) [Entitic vol] 89 fL Normal 80-100 [facility] Comment on above: Performed By: #### V BG #### [facility] ([id number]) [address] [place] [address] 24247 Monocytes (Bld) [#/Vol] 0.8 10*3/uL Normal 0-0.9 [facility] Comment on above: Performed By: #### V BG #### [facility] ([id number]) [address] [place] [address] 03896 Monocytes/100 WBC (Bld) 9.0 % Normal [facility] Comment on above: Performed By: #### V BG #### [facility] ([id number]) [address] [place] [address] 07222 Neutrophils/100 WBC (Bld) 67.1 % Normal [facility] Comment on above: Performed By: #### V BG #### [facility] ([id number]) [address] [place] [address] 34850 Platelet mean volume (Bld) [Entitic vol] 7.8 fL Normal 7-12 [facility] Comment on above: Performed By: #### V BG #### [facility] ([id number]) [address] [place] [address] 16794 Platelets (Bld) [#/Vol] 404 10*3/uL Normal 150-450 [facility] Comment on above: Performed By: #### V BG #### [facility] ([id number]) [address] [place] [address] 23104 RBC COUNT 4.41 X10E12/L Normal 3.80-5.20 [facility] Comment on above: Performed By: #### V BG #### [facility] ([id number]) [address] [place] [address] 41368 WBC (Bld) [#/Vol] 8.5 10*3/uL Normal 4.0-11.0 [facility] Comment on above: Performed By: #### V BG #### [facility] ([id number]) [address] [place] [address] 25211 COMPREHENSIVE METABOLIC PANE Pee 08-22-2023 Albumin [Mass/Vol] 4.6 g/dL Normal 3.2-5.3 [facility] Comment on above: Performed By: #### V BG #### [facility] ([id number]) [address] [place] [address] 98530 ALP [Catalytic activity/Vol] 42 U/L Normal 39-130 [facility] Comment on above: Performed By: #### V BG #### [facility] ([id number]) [address] [place] [address] 97858 ALT [Catalytic activity/Vol] 38 U/L High 0-31 [facility] Comment on above: Performed By: #### V BG #### [facility] ([id number]) [address] [place] [address], [place] [address] Anion gap [Moles/Vol] 11 mmol/L Normal 5-15 [facility] Comment on above: Performed By: #### V BG #### [facility] ([id number]) [address] [place] [address] 01103 AST [Catalytic activity/Vol] 39 U/L Normal 0-41 [facility] Comment on above: Performed By: #### V BG #### [facility] ([id number]) [address] [place] [address] 23382 Bilirubin [Mass/Vol] 0.6 mg/dL Normal 0.3-1.2 [facility] Comment on above: Performed By: #### V BG #### [facility] ([id number]) [address] [place] [address] 55555 Calcium [Mass/Vol] 8.7 mg/dL Normal 8.5-10.5 [facility] Comment on above: Performed By: #### V BG #### [facility] ([id number]) [address] [place] [address] 19485 Chloride [Moles/Vol] 104 mmol/L Normal 98-109 [facility] Comment on above: Performed By: #### V BG #### [facility] ([id number]) [address] [place] [address] 64051 CO2 [Moles/Vol] 21 mmol/L Low 22-32 [facility] Comment on above: Performed By: #### V BG #### [facility] ([id number]) [address] [place] [address] 49289 Creatinine [Mass/Vol] 0.84 mg/dL Normal 0.40-1.00 [facility] Comment on above: Result Comment: METH OD TRACEABLE TO IDMS STANDARD Performed By: #### V BG #### [facility] ([id number]) [address] [place] [address] 05297 eGFR (CKD-EPI) NON-RACE DEPENDENT >90 Normal >59 [facility] Comment on above: Result Comment: Reported eGFR is based on the CKD-EPI 2020 equation that does not use a race coefficient. Performed By: #### V BG #### [facility] ([id number]) [address] [place] [address] 10608 Glucose [Mass/Vol] 135 mg/dL High 65-99 [facility] Comment on above: Performed By: #### V BG #### [facility] ([id number]) [address] [place] [address] 46835 Potassium [Moles/Vol] 3.3 mmol/L Low 3.5-5.0 [facility] Comment on above: Performed By: #### V BG #### [facility] ([id number]) [address] [place] [address] 02193 Protein [Mass/Vol] 7.7 g/dL Normal 6.0-8.0 [facility] Comment on above: Performed By: #### V BG #### [facility] ([id number]) [address] [place] [address] 50831 Sodium [Moles/Vol] 136 mmol/L Normal 134-146 [facility] Comment on above: Performed By: #### V BG #### [facility] ([id number]) [address] [place] [address] 45727 Urea nitrogen [Mass/Vol] 9 mg/dL Normal 5-23 [facility] Comment on above: Performed By: #### V BG #### [facility] ([id number]) [address] [place] [address] 62557 Glucose Glucometer (BldC) [M ass/Vol]on 08-22-2023 Glucose [Mass/Vol] 144 mg/dL High 65-99 [facility] Glucose [Mass/Vol] 123 mg/dL High 65-99 [facility] Glucose [Mass/Vol] 128 mg/dL High 65-99 [facility] Glucose [Mass/Vol] 151 mg/dL High 65-99 [facility] MAGNESIUMon 08-22-2023 Magnesium [Mass/Vol] 2.7 mg/dL High 1.8-2.6 [facility] Comment on above: Performed By: #### V BG #### [facility] ([id number]) [address] [place] [address] 55774 POTASSIUMon 08-22-2023 Potassium [Moles/Vol] 3.5 mmol/L Normal 3.5-5.0 [facility] Comment on above: Performed By: #### C BCA, [facility], 6873-4 #### [facility] ([id number]) [address] [place] [address] 71339 Potassium [Moles/Vol] 3.5 mmol/L Normal 3.5-5.0 [facility] Comment on above: Performed By: #### V BG #### [facility] ([id number]) [address] [place] [address] 32826 COMPREHENSIVE METABOLIC PANE Pee 08-21-2023 Albumin [Mass/Vol] 4.4 g/dL Normal 3.2-5.3 [facility] Comment on above: Performed By: #### N UM #### [facility] ([id number]) [address] [place] [address] 55632 ALP [Catalytic activity/Vol] 43 U/L Normal 39-130 [facility] Comment on above: Performed By: #### N UM #### [facility] ([id number]) [address] [place] [address] 01699 ALT [Catalytic activity/Vol] 36 U/L High 0-31 [facility] Comment on above: Performed By: #### N UM #### [facility] ([id number]) [address] [place] [address] 72558 Anion gap [Moles/Vol] 10 mmol/L Normal 5-15 [facility] Comment on above: Performed By: #### N UM #### [facility] ([id number]) [address] [place] [address] 44623 AST [Catalytic activity/Vol] 32 U/L Normal 0-41 [facility] Comment on above: Performed By: #### N UM #### [facility] ([id number]) [address] [place] [address] 85710 Bilirubin [Mass/Vol] 0.7 mg/dL Normal 0.3-1.2 [facility] Comment on above: Performed By: #### N UM #### [facility] ([id number]) [address] [place] [address] 78693 Calcium [Mass/Vol] 8.9 mg/dL Normal 8.5-10.5 [facility] Comment on above: Performed By: #### N UM #### [facility] ([id number]) [address] [place] [address] 39101 Chloride [Moles/Vol] 105 mmol/L Normal 98-109 [facility] Comment on above: Performed By: #### N UM #### [facility] ([id number]) [address] [place] [address] 07697 CO2 [Moles/Vol] 19 mmol/L Low 22-32 [facility] Comment on above: Performed By: #### N UM #### [facility] ([id number]) [address] [place] [address] 83577 Creatinine [Mass/Vol] 0.77 mg/dL Normal 0.40-1.00 [facility] Comment on above: Result Comment: METH OD TRACEABLE TO IDMS STANDARD Performed By: #### N UM #### [facility] ([id number]) [address] [place] [address] 61513 eGFR (CKD-EPI) NON-RACE DEPENDENT >90 Normal >59 [facility] Comment on above: Result Comment: Reported eGFR is based on the CKD-EPI 2020 equation that does not use a race coefficient. Performed By: #### N UM #### [facility] ([id number]) [address] [place] [address] 96960 Glucose [Mass/Vol] 167 mg/dL High 65-99 [facility] Comment on above: Performed By: #### N UM #### [facility] ([id number]) [address] [place] [address] 21122 Potassium [Moles/Vol] 3.1 mmol/L Low 3.5-5.0 [facility] Comment on above: Performed By: #### N UM #### [facility] ([id number]) [address] [place] [address] 22417 Protein [Mass/Vol] 7.7 g/dL Normal 6.0-8.0 [facility] Comment on above: Performed By: #### N UM #### [facility] ([id number]) [address] [place] [address] 27098 Sodium [Moles/Vol] 134 mmol/L Normal 134-146 [facility] Comment on above: Performed By: #### N UM #### [facility] ([id number]) [address] [place] [address] 47769 Urea nitrogen [Mass/Vol] 8 mg/dL Normal 5-23 [facility] Comment on above: Performed By: #### N UM #### [facility] ([id number]) [address] [place] [address] 59697 Glucose Glucometer (BldC) [M ass/Vol]on 08-21-2023 Glucose [Mass/Vol] 134 mg/dL High 65-99 [facility] Glucose [Mass/Vol] 146 mg/dL High 65-99 [facility] Glucose [Mass/Vol] 157 mg/dL High 65-99 [facility] Lactate (P remy) [Moles/Vol]o n 08-21-2023 Lactate [Moles/Vol] 1.2 mmol/L Normal 0.4-2.0 [facility] Comment on above: Performed By: #### N UM #### [facility] ([id number]) [address] [place] [address] 64543 MAGNESIUMon 08-21-2023 Magnesium [Mass/Vol] 1.7 mg/dL Low 1.8-2.6 [facility] Comment on above: Performed By: #### N UM #### [facility] ([id number]) [address] [place] [address] 00532 URN MACROSCOPIC NURon 2023 BILIRUBIN SAE Negative Normal NEG [facility] Comment on above: Performed By: #### N UM #### [facility] ([id number]) [address] [place] [address] 55868 BLOOD/HGB SAE Negative Normal NEG [facility] Comment on above: Performed By: #### N UM #### [facility] ([id number]) [address] [place] [address] 11827 GLUCOSE SAE Negative Normal NEG [facility] Comment on above: Performed By: #### N UM #### [facility] ([id number]) [address] [place] [address] [place] [address] KETONES SAE 40 mg/dL Abnormal NEG [facility] Comment on above: Performed By: #### N UM #### [facility] ([id number]) [address] [place] [address] [place] [address] LEUKOCYTE ESTERASE SAE Negative Normal NEG [facility] Comment on above: Performed By: #### N UM #### [facility] ([id number]) [address] [place] [address] 52726 NITRITE SAE Negative Normal NEG [facility] Comment on above: Performed By: #### N UM #### [facility] ([id number]) [address] [place] [address] 67181 PH SAE 8.5 Normal 5.0-8.5 [facility] Comment on above: Performed By: #### N UM #### [facility] ([id number]) [address] [place] [address] 94646 PROTEIN SAE Trace Abnormal NEG [facility] Comment on above: Performed By: #### N UM #### [facility] ([id number]) [address] [place] [address] 47267 SPECIFIC GRAVITY SAE 1.015 Normal 1.003-[address] [place] [address] Comment on above: Performed By: #### N UM #### [facility] ([id number]) [address] [place] [address] 35926 UROBILINOGEN SAE 0.2 eu/dL Normal <1.1 [facility] Comment on above: Performed By: #### N UM #### [facility] ([id number]) [address] [place] [address] 67146 CBC AND AUTO DIFFon 08-20-19 24 ABSOLUTE BASOPHIL 0.0 X10E9/L Normal 0.0-0.2 [facility] Comment on above: Performed By: #### C BCA, CMP, 3040-3, 53998-3, 22897-7 ####[facility] ([id number])[address] [place] [address] 92659 ABSOLUTE NEUTROPHIL 5.6 X10E9/L Normal 1.5-6.6 [facility] Comment on above: Performed By: #### C BCA, CMP, 3040-3, , 43065-2 ####[facility] ([id number])[address] [place] [address] 34123 Basophils/100 WBC (Bld) 0.5 % Normal [facility] Comment on above: Performed By: #### C BCA, CMP, 3, , 74698-8 ####[facility] ([id number])[address] [place] [address] 89440 Eosinophils (Bld) [#/Vol] 0.0 10*3/uL Normal 0.0-0.4 [facility] Comment on above: Performed By: #### C DALLAS, CMP, 3039-07, , 53752-9 ####[facility] ([id number])[address] [place] [address] 51260 Eosinophils/100 WBC (Bld) 0.1 % Normal [facility] Comment on above: Performed By: #### C DALLAS, CMP, 3039-07, , 30656-0 ####[facility] ([id number])[address] [place] [address] 15953 Erythrocyte distribution width (RBC) [Ratio] 13.6 % Normal 11.5-15.0 [facility] Comment on above: Performed By: #### C DALLAS, CMP, 3, , 35971-2 ####[facility] ([id number])[address] [place] [address] 38750 Hematocrit (Bld) [Volume fraction] 37.8 % Normal 35-47 [facility] Comment on above: Performed By: #### C BCA, CMP, 3, , 82875-9 ####[facility] ([id number])[address] [place] [address] 18949 Hemoglobin (Bld) [Mass/Vol] 12.9 g/dL Normal 11.7-15.5 [facility] Comment on above: Performed By: #### C BCA, CMP, 3040-3, 89992-0, 29566-6 ####[facility] ([id number])[address] [place] [address] 48698 Lymphocytes (Bld) [#/Vol] 1.2 10*3/uL Normal 1.0-3.5 [facility] Comment on above: Performed By: #### C BCA, CMP, 3040-3, , 30773-6 ####[facility] ([id number])[address] [place] [address] 40362 Lymphocytes/100 WBC (Bld) 16.1 % Normal [facility] Comment on above: Performed By: #### C BCA, CMP, 3040-3, , 88780-1 ####[facility] ([id number])[address] [place] [address] 03144 MCH (RBC) [Entitic mass] 30.5 pg Normal 27-34 [facility] Comment on above: Performed By: #### C BCA, CMP, 3040-3, , 37673-3 ####[facility] ([id number])[address] [place] [address] 23003 MCHC (RBC) [Mass/Vol] 34.3 g/dL Normal 32-36 [facility] Comment on above: Performed By: #### C BCA, CMP, 3040-3, , 96943-9 ####[facility] ([id number])[address] [place] [address] 25889 MCV (RBC) [Entitic vol] 89 fL Normal 80-100 [facility] Comment on above: Performed By: #### C BCA, CMP, 3040-3, , 56047-4 ####[facility] ([id number])[address] [place] [address] 57267 Monocytes (Bld) [#/Vol] 0.3 10*3/uL Normal 0-0.9 [facility] Comment on above: Performed By: #### C BCA, CMP, 3040-3, 14267-6, 24386-1 ####[facility] ([id number])[address] [place] [address] 77472 Monocytes/100 WBC (Bld) 4.6 % Normal [facility] Comment on above: Performed By: #### C DALLAS, CMP, 3040-3, 43284-9, 41414-5 ####[facility] ([id number])[address] [place] [address] 91303 Neutrophils/100 WBC (Bld) 78.7 % Normal [facility] Comment on above: Performed By: #### Nany BCA, CMP, 3040-3, , 11264-0 ####[facility] ([id number])[address] [place] [address] 73010 Platelet mean volume (Bld) [Entitic vol] 7.9 fL Normal 7-12 [facility] Comment on above: Performed By: #### Nany HAYNES, CMP, 3040-3, 98663-5, 73778-7 ####[facility] ([id number])[address] [place] [address] 95917 Platelets (Bld) [#/Vol] 369 10*3/uL Normal 150-450 [facility] Comment on above: Performed By: #### Nany BCA, CMP, 3040-3, 67950-4, 06787-0 ####[facility] ([id number])[address] [place] [address] 78284 RBC COUNT 4.25 X10E12/L Normal 3.80-5.20 [facility] Comment on above: Performed By: #### Nany BCA, CMP, 3040-3, 34591-1, 43582-2 ####[facility] ([id number])[address] [place] [address] 75058 WBC (Bld) [#/Vol] 7.2 10*3/uL Normal 4.0-11.0 [facility] Comment on above: Performed By: #### C BCA, CMP, 3040-3, 01737-5, 02108-9 ####[facility] ([id number])[address] [place] [address] [place] [address] COMPREHENSIVE METABOLIC PANE Pee 08-20-2023 Albumin [Mass/Vol] 4.7 g/dL Normal 3.2-5.3 [facility] Comment on above: Performed By: #### N UM #### [facility] ([id number]) [address] [place] [address] 56094 ALP [Catalytic activity/Vol] 44 U/L Normal 39-130 [facility] Comment on above: Performed By: #### N UM #### [facility] ([id number]) [address] [place] [address] 19198 ALT [Catalytic activity/Vol] 43 U/L High 0-31 [facility] Comment on above: Performed By: #### N UM #### [facility] ([id number]) [address] [place] [address] 23163 Anion gap [Moles/Vol] 9 mmol/L Normal 5-15 [facility] Comment on above: Performed By: #### N UM #### [facility] ([id number]) [address] [place] [address] 67352 AST [Catalytic activity/Vol] 36 U/L Normal 0-41 [facility] Comment on above: Performed By: #### N UM #### [facility] ([id number]) [address] [place] [address] 29778 Bilirubin [Mass/Vol] 0.8 mg/dL Normal 0.3-1.2 [facility] Comment on above: Performed By: #### N UM #### [facility] ([id number]) [address] [place] [address] 09765 Calcium [Mass/Vol] 9.5 mg/dL Normal 8.5-10.5 [facility] Comment on above: Performed By: #### N UM #### [facility] ([id number]) [address] [place] [address] 36062 Chloride [Moles/Vol] 105 mmol/L Normal 98-109 [facility] Comment on above: Performed By: #### N UM #### [facility] ([id number]) [address] [place] [address] 56880 CO2 [Moles/Vol] 20 mmol/L Low 22-32 [facility] Comment on above: Performed By: #### N UM #### [facility] ([id number]) [address] [place] [address] 29924 Creatinine [Mass/Vol] 0.89 mg/dL Normal 0.40-1.00 [facility] Comment on above: Result Comment: METH OD TRACEABLE TO IDMS STANDARD Performed By: #### N UM #### [facility] ([id number]) [address] [place] [address] 10506 GFR/1.73 sq M.predicted among non-blacks MDRD (S/P/Bld) [Vol rate/Area] 87 mL/min/{1.73_m2} Normal >59 [facility] Comment on above: Result Comment: Reported eGFR is based on the CKD-EPI 1 equation that does not use a race coefficient. Performed By: #### N UM #### [facility] ([id number]) [address] [place] [address] 37899 Glucose [Mass/Vol] 178 mg/dL High 65-99 [facility] Comment on above: Performed By: #### N UM #### [facility] ([id number]) [address] [place] [address] 18571 Potassium [Moles/Vol] 2.9 mmol/L Low 3.5-5.0 [facility] Comment on above: Performed By: #### N UM #### [facility] ([id number]) [address] [place] [address] 43963 Protein [Mass/Vol] 8.1 g/dL High 6.0-8.0 [facility] Comment on above: Performed By: #### N UM #### [facility] ([id number]) [address] [place] [address] 67084 Sodium [Moles/Vol] 134 mmol/L Normal 134-146 [facility] Comment on above: Performed By: #### N UM #### [facility] ([id number]) [address] [place] [address] 86961 Urea nitrogen [Mass/Vol] 9 mg/dL Normal 5-23 [facility] Comment on above: Performed By: #### N UM #### [facility] ([id number]) [address] [place] [address] ABDOMEN AND PELVIS W CONT on [...] Kaur MD on 08/20/2023 9:18 PM Normal [facility] LIPASEon 08-20-2023 Lipase [Catalytic activity/Vol] 26 U/L Normal 17-40 [facility] Comment on above: Performed By: #### N UM #### [facility] ([id number]) [address] [place] [address] 31475 Lactate (P remy) [Moles/Vol]o n 08-20-2023 LACTATE W/REFLEX 2.2 mmol/L High 0.4-2.0 [facility] Comment on above: Performed By: #### N UM #### [facility] ([id number]) [address] [place] [address] 48482 MAGNESIUMon 08-20-2023 Magnesium [Mass/Vol] 1.5 mg/dL Low 1.8-2.6 [facility] Comment on above: Performed By: #### N UM #### [facility] ([id number]) [address] [place] [address] 63412 Calprotectin (Stl) [Mass/Mas s]on 08-17-2023 Calprotectin, F <50.0 Normal <50.0 (Normal) [facility] Comment on above: Result Comment: NOTE Test Performed by: [facility] [address] [place] [address] Brand Mgr: Oziel Moran M.D. Ph.D.; CLIA# [id number] Performed By: #### V BG #### [facility] ([id number]) [address] [place] [address] 36733 GI PANELon 08-17-2023 Gastrointestinal pathogens DNA and [...] SAPOVIRUS Not detected (qualifier value) Normal NDET [facility] Comment on above: Performed By: #### 8 2195-9 ####[facility] ([id number])[address] [place] [address] ([id number])[address] [facility], [address] [address] CBC AND AUTO DIFFon 08-15-19 24 ABSOLUTE BASOPHIL 0.0 X10E9/L Normal 0.0-0.2 [facility] Comment on above: Performed By: #### C BCA, CMP, 1988-5, FEPR, 2276-4, 3040-3 ####[facility] ([id number])[address] [address] [place] [address] ABSOLUTE NEUTROPHIL 1.8 X10E9/L Normal 1.5-6.6 [facility] Comment on above: Performed By: #### C BCA, CMP, 1987-09, FEPR, 2275-, 3039-3 ####[facility] ([id number])[address] [address] [address] Basophils/100 WBC (Bld) 1.0 % Normal [facility] Comment on above: Performed By: #### C BCA, CMP, 1987-09, FEPR, 2275-08, 3039-3 ####[facility] ([id number])[address] [address] [address] Eosinophils (Bld) [#/Vol] 0.5 10*3/uL High 0.0-0.4 [facility] Comment on above: Performed By: #### C BCA, CMP, 1987-09, FEPR, 2275-08, 3 ####[facility] ([id number])[address] [address] [address] Eosinophils/100 WBC (Bld) 12.1 % Normal [facility] Comment on above: Performed By: #### C BCA, CMP, 1987-09, FEPR, 2275-08, 3039-3 ####[facility] ([id number])[address] [address] [address] Erythrocyte distribution width (RBC) [Ratio] 13.6 % Normal 11.5-15.0 [facility] Comment on above: Performed By: #### C BCA, CMP, 1987-09, FEPR, 2275-08, 3039-3 ####[facility] ([id number])[address] [address] [address] Hematocrit (Bld) [Volume fraction] 37.7 % Normal 35-47 [facility] Comment on above: Performed By: #### C BCA, CMP, 1987-09, FEPR, 2275-4, 0-3 ####[facility] ([id number])[address], [address] [place] [id number] Hemoglobin (Bld) [Mass/Vol] 12.7 g/dL Normal 11.7-15.5 [facility] [facility] Comment on above: Performed By: #### C BCA, CMP, 1987-09, FEPR, 4, 3039-3 ####[facility] ([id number])[address] [address] Lymphocytes (Bld) [#/Vol] 1.8 10*3/uL Normal 1.0-3.5 [facility] Comment on above: Performed By: #### C BCA, CMP, 1987-09, FEPR, 2275-08, 3039-3 ####[facility] ([id number])[address] [address] [place] [address] Lymphocytes/100 WBC (Bld) 40.6 % Normal [facility] Comment on above: Performed By: #### C BCA, CMP, 1987-09, FEPR, 2275-08, 3039-3 ####[facility] ([id number])[address] [address] [address] MCH (RBC) [Entitic mass] 30.5 pg Normal 27-34 [facility] Comment on above: Performed By: #### C BCA, CMP, 1987-09, FEPR, 2275-08, 0-3 ####[facility] ([id number])[address] [address] [place] [address] MCHC (RBC) [Mass/Vol] 33.6 g/dL Normal 32-36 [facility] Comment on above: Performed By: #### C BCA, CMP, 1987-09, FEPR, 2275-08, 3040-3 ####[facility] ([id number])[address] [place] [address] MCV (RBC) [Entitic vol] 91 fL Normal 80-100 [facility] Comment on above: Performed By: #### C BCA, CMP, 1987-09, FEPR, 2275-08, 3039-3 ####[facility] ([id number])[address] [address] [address] Monocytes (Bld) [#/Vol] 0.2 10*3/uL Normal 0-0.9 [facility] Comment on above: Performed By: #### C BCA, CMP, 1987-09, FEPR, 2275-08, 3 ####[facility] ([id number])[address] [address] [address] Monocytes/100 WBC (Bld) 5.7 % Normal [facility] Comment on above: Performed By: #### C BCA, CMP, 1987-09, FEPR, 2275-08, 3039-3 ####[facility] ([id number])[address] [address] [address] Neutrophils/100 WBC (Bld) 40.6 % Normal [facility] Comment on above: Performed By: #### C BCA, CMP, 1987-09, FEPR, 2275-08, 3039-3 ####[facility] ([id number])[address] [address] [place] [address] Platelet mean volume (Bld) [Entitic vol] 8.6 fL Normal 7-12 [facility] Comment on above: Performed By: #### C BCA, CMP, 1987-09, FEPR, 2275-08, 3039-3 ####[facility] ([id number])[address] [address] [place] [address] Platelets (Bld) [#/Vol] 317 10*3/uL Normal 150-450 [facility] Comment on above: Performed By: #### C BCA, CMP, 1987-09, FEPR, 6-4, 0-3 ####[facility] ([id number])[address] [address] RBC COUNT 4.15 X10E12/L Normal 3.80-5.20 [facility] Comment on above: Performed By: #### C BCA, CMP, 1987-09, FEPR, 6-4, 3039-3 ####[facility] ([id number])[address] [address] [place] [address] WBC (Bld) [#/Vol] 4.3 10*3/uL Normal 4.0-11.0 [facility] Comment on above: Performed By: #### C BCA, CMP, 1987-09, FEPR, 2275-08, 304-3 ####[facility] ([id number])[address], [address] [place] [address] COMPREHENSIVE METABOLIC PANE Pee 08-15-2023 Albumin [Mass/Vol] 3.9 g/dL Normal 3.2-5.3 [facility] Comment on above: Performed By: #### C BCA, CMP, 1987-09, FEPR, 4, 3040-3 ####[facility] ([id number])[address], [address] [place] [address] ALP [Catalytic activity/Vol] 37 U/L Low 39-130 [facility] Comment on above: Performed By: #### C BCA, CMP, 1987-09, FEPR, 2275-4, 3040-3 ####[facility] ([id number])[address] [address] [place] [address] ALT [Catalytic activity/Vol] 34 U/L High 0-31 [facility] Comment on above: Performed By: #### C BCA, CMP, 1987-09, FEPR, 2275-, 0-3 ####[facility] ([id number])[address], [address], [place] [address] Anion gap [Moles/Vol] 11 mmol/L Normal 5-15 [facility] Comment on above: Performed By: #### C BCA, CMP, 1987-09, FEPR, 4, 0-3 ####[facility] ([id number])[address], [address], [place] [address] AST [Catalytic activity/Vol] 27 U/L Normal 0-41 [facility] Comment on above: Performed By: #### C BCA, CMP, 1987-09, FEPR, 2275-4, 0-3 ####[facility] ([id number])[address] [address], [place] [address] Bilirubin [Mass/Vol] 0.4 mg/dL Normal 0.3-1.2 [facility] Comment on above: Performed By: #### C BCA, CMP, 1987-09, FEPR, 2275-08, 3039-3 ####[facility] ([id number])[address] [address], [place] [address] Calcium [Mass/Vol] 9.1 mg/dL Normal 8.5-10.5 [facility] Comment on above: Performed By: #### C BCA, CMP, 1987-09, FEPR, 2275-08, 3039-3 ####[facility] ([id number])[address] [address], [place] [address] Chloride [Moles/Vol] 106 mmol/L Normal 98-109 [facility] Comment on above: Performed By: #### C BCA, CMP, 1987-09, FEPR, 6-4, 0-3 ####[facility] ([id number])[address], [address], [place] [address] CO2 [Moles/Vol] 22 mmol/L Normal 22-32 [facility] Comment on above: Performed By: #### C BCA, CMP, 1987-09, FEPR, 2276-4, 3040-3 ####[facility] ([id number])[address] [address], [place] [address] Creatinine [Mass/Vol] 0.87 mg/dL Normal 0.40-1.00 [facility] Comment on above: Result Comment: METH OD TRACEABLE TO IDMS STANDARD Performed By: #### C BCA, CMP, 1987-09, FEPR, 2276-4, 3040-3 ####[facility] ([id number])[address] [address] [address] GFR/1.73 sq M.predicted among non-blacks MDRD (S/P/Bld) [Vol rate/Area] 90 mL/min/{1.73_m2} Normal >59 [facility] Comment on above: Result Comment: Reported eGFR is based on the CKD-EPI 2020 equation that does not use a race coefficient. Performed By: #### C BCA, CMP, 1987-09, FEPR, 2276-4, 3040-3 ####[facility] ([id number])[address] [address], [place] [address] Glucose [Mass/Vol] 108 mg/dL High 65-99 [facility] Comment on above: Performed By: #### C BCA, CMP, 1987-09, FEPR, 2276-4, 0-3 ####[facility] ([id number])[address] [address] [place] [address] Potassium [Moles/Vol] 3.5 mmol/L Normal 3.5-5.0 [facility] Comment on above: Performed By: #### C BCA, CMP, 1987-09, FEPR, 2276-4, 3040-3 ####[facility] ([id number])[address] [address] [address] Protein [Mass/Vol] 6.2 g/dL Normal 6.0-8.0 [facility] Comment on above: Performed By: #### C BCA, CMP, 1987-09, FEPR, 2275-4, 0-3 ####[facility] ([id number])[address] [address] Sodium [Moles/Vol] 139 mmol/L Normal 134-146 [facility] Comment on above: Performed By: #### C BCA, CMP, 1987-09, FEPR, 4, 0-3 ####[facility] ([id number])[address], [address] [place] [address] Urea nitrogen [Mass/Vol] 8 mg/dL Normal 5-23 [facility] Comment on above: Performed By: #### C BCA, CMP, 1987-09, FEPR, 2275-08, 304-3 ####[facility] ([id number])[address] [address] [place] [address] CRP [Mass/Vol]on 08-15-2023 C REACTIVE PROTEIN 0.1 mg/dL Normal 0.000-0.7 4 4 [facility] Comment on above: Performed By: #### C BCA, CMP, 1987-09, FEPR, 4, 304-3 ####[facility] ([id number])[address] [address] [place] [address] FERRITINon 08-15-2023 Ferritin [Mass/Vol] 33 ng/mL Normal 11-307 [facility] Comment on above: Performed By: #### C BCA, CMP, 1987-09, FEPR, 4, 3040-3 ####[facility] ([id number])[address] [address] [address] IRON PROFILEon 08-15-2023 Iron [Mass/Vol] 114 ug/dL Normal 50-170 [facility] Comment on above: Performed By: #### C BCA, CMP, 1987-09, FEPR, 2276-4, 3040-3 ####[facility] ([id number])[address], [address], [place] [address] IRON BINDING 458 ug/dL High 250-425 [facility] Comment on above: Performed By: #### C BCA, CMP, 1987-09, FEPR, 2276-4, 0-3 ####[facility] ([id number])[address], [address] [address] IRON SATURATION 25 % SATURATION Normal 15-50 [facility] Comment on above: Performed By: #### C BCA, CMP, 1987-09, FEPR, 4, 3040-3 ####[facility] ([id number])[address] [address] LIPASEon 08-15-2023 Lipase [Catalytic activity/Vol] 23 U/L Normal 11-82 [facility] Comment on above: Performed By: #### C BCA, CMP, 1987-09, FEPR, 4, 3040-3 ####[facility] ([id number])[address], [address], [place] [address] COMPREHENSIVE METABOLIC PANE Pee 07-24-2023 Albumin [Mass/Vol] 4.1 g/dL Normal 3.2-5.3 [facility] Comment on above: Performed By: #### [place], [address]-4 #### [facility] ([id number]) [address], [address] [place] [address] ALP [Catalytic activity/Vol] 46 U/L Normal 39-130 [facility] Comment on above: Performed By: #### [place], [address]-9 #### [facility] ([id number]) [address], [address] [place] [address] ALT [Catalytic activity/Vol] 46 U/L High 0-31 [facility] Comment on above: Performed By: #### Nany LOPEZ, #### [facility] ([id number]) [address], [address] [place] [address] Anion gap [Moles/Vol] 8 mmol/L Normal 5-15 [facility] Comment on above: Performed By: #### Nany LOPEZ, #### [facility] ([id number]) [address], [address] [place] [address] AST [Catalytic activity/Vol] 28 U/L Normal 0-41 [facility] Comment on above: Performed By: #### Nany LOPEZ, #### [facility] ([id number]) [address], [address] [place] [address] Bilirubin [Mass/Vol] 0.4 mg/dL Normal 0.3-1.2 [facility] Comment on above: Performed By: #### Nany LOPEZ, #### [facility] ([id number]) [address] [place] [address] Calcium [Mass/Vol] 9.4 mg/dL Normal 8.5-10.5 [facility] Comment on above: Performed By: #### Nany LOPEZ, #### [facility] ([id number]) [address] [place] [address] Chloride [Moles/Vol] 107 mmol/L Normal 98-109 [facility] Comment on above: Performed By: #### Nany LOPEZ, #### [facility] ([id number]) [address] [place] [address] CO2 [Moles/Vol] 24 mmol/L Normal 22-32 [facility] Comment on above: Performed By: #### Nany LOPEZ, #### [facility] ([id number]) [address], [address] [place] [address] Creatinine [Mass/Vol] 0.74 mg/dL Normal 0.40-1.00 [facility] Comment on above: Result Comment: METH OD TRACEABLE TO IDMS STANDARD Performed By: #### C JESSICA, #### [facility] ([id number]) [address], [address] [place] [address] eGFR (CKD-EPI) NON-RACE DEPENDENT >90 Normal >59 [facility] Comment on above: Result Comment: Reported eGFR is based on the CKD-EPI 2020 equation that does not use a race coefficient. Performed By: #### Nany LOPEZ, #### [facility] ([id number]) [address], [address] [place] [address] Glucose [Mass/Vol] 138 mg/dL High 65-99 [facility] Comment on above: Performed By: #### Nany LOPEZ, #### [facility] ([id number]) [address], [address] [place] [address] Potassium [Moles/Vol] 3.5 mmol/L Normal 3.5-5.0 [facility] Comment on above: Performed By: #### Nany LOPEZ, #### [facility] ([id number]) [address] [address] [place] [address] Protein [Mass/Vol] 6.7 g/dL Normal 6.0-8.0 [facility] Comment on above: Performed By: #### Nany LOPEZ, #### [facility] ([id number]) [address] [address] [place] [address] Sodium [Moles/Vol] 139 mmol/L Normal 134-146 [facility] Comment on above: Performed By: #### Nany LOPEZ, #### [facility] ([id number]) [address], [address] [place] [address] Urea nitrogen [Mass/Vol] 8 mg/dL Normal 5-23 [facility] Comment on above: Performed By: #### C , 51600-8 #### [facility] ([id number]) [address], [address] [place] [address] Comprehensive metabolic pane pee 07-24-2023 Albumin [Mass/Vol] 4.1 g/dL 3.2 - 5.3 g/dL [facility] ALP [Catalytic activity/Vol] 46 U/L 39 - 130 U/L [facility] ALT No additional P-5'-P [Catalytic activity/Vol] 46 U/L High 0 - 31 U/L [facility] Anion gap [Moles/Vol] 8 mmol/L 5 - 15 mmol/L [facility] AST [Catalytic activity/Vol] 28 U/L 0 - 41 U/L [facility] Bilirubin [Mass/Vol] 0.4 mg/dL 0.3 - 1 .2 mg/dL [facility] Calcium [Mass/Vol] 9.4 mg/dL 8.5 - 10. 5 mg/dL [facility] Chloride [Moles/Vol] 107 mmol/L 98 - 10 9 mmol/L [facility] CO2 [Moles/Vol] 24 mmol/L 22 - 32 mmol/L [facility] Creatinine [Mass/Vol] 0.74 mg/dL 0.40 - 1.00 mg/dL [facility] Comment on above: METHOD TRACEABLE TO IDTX STANDARD eGFR (CKD-EPI)non-race dependent - PINF [facility] Comment on above: Reported eGFR is based on the CKD-EPI 2020 equation that does not use a race coefficient. Glucose [Mass/Vol] 138 mg/dL High 65 - 99 mg/dL [facility] Interpretation and review of laboratory results Abnormal [facility] Potassium [Moles/Vol] 3.5 mmol/L 3.5 - 5.0 mmol/L [facility] Protein [Mass/Vol] 6.7 g/dL 6.0 - 8.0 g/dL [facility] Sodium [Moles/Vol] 139 mmol/L 134 - 146 mmol/L [facility] Urea nitrogen [Mass/Vol] 8 mg/dL 5 - 23 mg/dL [facility] MAGNESIUMon 07-24-2023 Magnesium [Mass/Vol] 1.5 mg/dL Low 1.8-2.6 [facility] Comment on above: Performed By: #### [place], [address]-1 #### [facility] ([id number]) [address] [facility], [address] [place] [address] CBC AND AUTO DIFFon 06-30-19 ABSOLUTE BASOPHIL 0.0 X10E9/L Normal 0.0-0.2 [facility] Comment on above: Performed By: #### C OVFLR #### [facility] ([id number]) [address] [place] [address] ABSOLUTE NEUTROPHIL 2.7 X10E9/L Normal 1.5-6.6 [facility] Comment on above: Performed By: #### C OVFLR #### [facility] ([id number]) [address] [place] [address] Basophils/100 WBC (Bld) 0.8 % Normal [facility] Comment on above: Performed By: #### C OVFLR #### [facility] ([id number]) [address] [place] [address] Eosinophils (Bld) [#/Vol] 0.1 10*3/uL Normal 0.0-0.4 [facility] Comment on above: Performed By: #### C OVFLR #### [facility] ([id number]) [address] [place] [address] Eosinophils/100 WBC (Bld) 2.0 % Normal [facility] Comment on above: Performed By: #### C OVFLR #### [facility] ([id number]) [address] [place] [address] Erythrocyte distribution width (RBC) [Ratio] 12.8 % Normal 11.5-15.0 [facility] Comment on above: Performed By: #### C OVFLR #### [facility] ([id number]) [address] [place] [address] Hematocrit (Bld) [Volume fraction] 36.7 % Normal 35-47 [facility] Comment on above: Performed By: #### C OVFLR #### [facility] ([id number]) [address] [place] [address] Hemoglobin (Bld) [Mass/Vol] 12.5 g/dL Normal 11.7-15.5 [facility] Comment on above: Performed By: #### C OVFLR #### [facility] ([id number]) [address] [place] [address] Lymphocytes (Bld) [#/Vol] 1.5 10*3/uL Normal 1.0-3.5 [facility] Comment on above: Performed By: #### C OVFLR #### [facility] ([id number]) [address] [place] [address] Lymphocytes/100 WBC (Bld) 30.5 % Normal [facility] Comment on above: Performed By: #### C OVFLR #### [facility] ([id number]) [address] [place] [address] MCH (RBC) [Entitic mass] 31.0 pg Normal 27-34 [facility] Comment on above: Performed By: #### C OVFLR #### [facility] ([id number]) [address] [place] [address] MCHC (RBC) [Mass/Vol] 34.0 g/dL Normal 32-36 [facility] Comment on above: Performed By: #### C OVFLR #### [facility] ([id number]) [address] [place] [address] MCV (RBC) [Entitic vol] 91 fL Normal 80-100 [facility] Comment on above: Performed By: #### C OVFLR #### [facility] ([id number]) [address] [place] [address] Monocytes (Bld) [#/Vol] 0.5 10*3/uL Normal 0-0.9 [facility] Comment on above: Performed By: #### C OVFLR #### [facility] ([id number]) [address] [place] [address] Monocytes/100 WBC (Bld) 10.7 % Normal [facility] Comment on above: Performed By: #### C OVFLR #### [facility] ([id number]) [address] [place] [address] Neutrophils/100 WBC (Bld) 56.0 % Normal [facility] Comment on above: Performed By: #### C OVFLR #### [facility] ([id number]) [address] [place] [address]294 Platelet mean volume (Bld) [Entitic vol] 8.0 fL Normal 7-12 [facility] Comment on above: Performed By: #### C OVFLR #### [facility] ([id number]) [address] [place] [address] Platelets (Bld) [#/Vol] 296 10*3/uL Normal 150-450 [facility] Comment on above: Performed By: #### C OVFLR #### [facility] ([id number]) [address] [place] [address]30 RBC COUNT 4.03 X10E12/L Normal 3.80-5.20 [facility] Comment on above: Performed By: #### C OVFLR #### [facility] ([id number]) [address] [place] [address] WBC (Bld) [#/Vol] 4.9 10*3/uL Normal 4.0-11.0 [facility] Comment on above: Performed By: #### C OVFLR #### [facility] ([id number]) [address] [place] [address] [place] [address] COMPREHENSIVE METABOLIC PANE Pee 06-30-2023 Albumin [Mass/Vol] 3.8 g/dL Normal 3.2-5.3 [facility] Comment on above: Performed By: #### C OVFLR #### [facility] ([id number]) [address] [place] [address]327 ALP [Catalytic activity/Vol] 50 U/L Normal 39-130 [facility] Comment on above: Performed By: #### C OVFLR #### [facility] ([id number]) [address] [place] [address] 26090 ALT [Catalytic activity/Vol] 85 U/L High 0-31 [facility] Comment on above: Performed By: #### C OVFLR #### [facility] ([id number]) [address] [place] [address] 11828 Anion gap [Moles/Vol] 9 mmol/L Normal 5-15 [facility] Comment on above: Performed By: #### C OVFLR #### [facility] ([id number]) [address] [place] [address] 70861 AST [Catalytic activity/Vol] 69 U/L High 0-41 [facility] Comment on above: Performed By: #### C OVFLR #### [facility] ([id number]) [address] [place] [address]676 Bilirubin [Mass/Vol] 0.7 mg/dL Normal 0.3-1.2 [facility] Comment on above: Performed By: #### C OVFLR #### [facility] ([id number]) [address] [place] [address] 32986 Calcium [Mass/Vol] 8.7 mg/dL Normal 8.5-10.5 [facility] Comment on above: Performed By: #### C OVFLR #### [facility] ([id number]) [address] [place] [address]381 Chloride [Moles/Vol] 102 mmol/L Normal 98-109 [facility] Comment on above: Performed By: #### C OVFLR #### [facility] ([id number]) [address] [place] [address]349 CO2 [Moles/Vol] 25 mmol/L Normal 22-32 [facility] Comment on above: Performed By: #### C OVFLR #### [facility] ([id number]) [address] [place] [address] 90968 Creatinine [Mass/Vol] 0.78 mg/dL Normal 0.40-1.00 [facility] Comment on above: Result Comment: METH OD TRACEABLE TO IDMS STANDARD Performed By: #### C OVFLR #### [facility] ([id number]) [address] [place] [address]44 eGFR (CKD-EPI) NON-RACE DEPENDENT >90 Normal >59 [facility] Comment on above: Result Comment: Reported eGFR is based on the CKD-EPI 2020 equation that does not use a race coefficient. Performed By: #### C OVFLR #### [facility] ([id number]) [address] [place] [address]355 Glucose [Mass/Vol] 184 mg/dL High 65-99 [facility] Comment on above: Performed By: #### C OVFLR #### [facility] ([id number]) [address] [place] [address] Potassium [Moles/Vol] 3.5 mmol/L Normal 3.5-5.0 [facility] Comment on above: Performed By: #### C OVFLR #### [facility] ([id number]) [address] [place] [address] 09671 Protein [Mass/Vol] 6.9 g/dL Normal 6.0-8.0 [facility] Comment on above: Performed By: #### C OVFLR #### [facility] ([id number]) [address] [place] [address] 08480 Sodium [Moles/Vol] 136 mmol/L Normal 134-146 [facility] Comment on above: Performed By: #### C OVFLR #### [facility] ([id number]) [address] [place] [address] 97246 Urea nitrogen [Mass/Vol] 11 mg/dL Normal 5-23 [facility] Comment on above: Performed By: #### C OVFLR #### [facility] ([id number]) [address] [place] [address] 41631 Glucose Glucometer (BldC) [M ass/Vol]on 06-30-2023 Glucose [Mass/Vol] 161 mg/dL High 65-99 [facility] MAGNESIUMon 06-30-2023 Magnesium [Mass/Vol] 1.9 mg/dL Normal 1.8-2.6 [facility] Comment on above: Performed By: #### C BCA, CMP, [id number] ####[facility] ([id number])[address] [place] [address] 16302 CBC AND AUTO DIFFon 06-29-19 24 ABSOLUTE BASOPHIL 0.0 X10E9/L Normal 0.0-0.2 [facility] Comment on above: Performed By: #### C OVFLR #### [facility] ([id number]) [address] [place] [address] 44828 ABSOLUTE NEUTROPHIL 4.3 X10E9/L Normal 1.5-6.6 [facility] Comment on above: Performed By: #### C OVFLR #### [facility] ([id number]) [address] [place] [address] 24127 Basophils/100 WBC (Bld) 0.6 % Normal [facility] Comment on above: Performed By: #### C OVFLR #### [facility] ([id number]) [address] [place] [address] 23157 Eosinophils (Bld) [#/Vol] 0.0 10*3/uL Normal 0.0-0.4 [facility] Comment on above: Performed By: #### C OVFLR #### [facility] ([id number]) [address] [place] [address] 11759 Eosinophils/100 WBC (Bld) 0.3 % Normal [facility] Comment on above: Performed By: #### C OVFLR #### [facility] ([id number]) [address] [place] [address] 04391 Erythrocyte distribution width (RBC) [Ratio] 12.9 % Normal 11.5-15.0 [facility] Comment on above: Performed By: #### C OVFLR #### [facility] ([id number]) [address] [place] [address] 36669 Hematocrit (Bld) [Volume fraction] 39.5 % Normal 35-47 [facility] Comment on above: Performed By: #### C OVFLR #### [facility] ([id number]) [address] [place] [address] 16436 Hemoglobin (Bld) [Mass/Vol] 13.3 g/dL Normal 11.7-15.5 [facility] Comment on above: Performed By: #### C OVFLR #### [facility] ([id number]) [address] [place] [address] 92305 Lymphocytes (Bld) [#/Vol] 1.6 10*3/uL Normal 1.0-3.5 [facility] Comment on above: Performed By: #### C OVFLR #### [facility] ([id number]) [address] [place] [address] 87724 Lymphocytes/100 WBC (Bld) 24.3 % Normal [facility] Comment on above: Performed By: #### C OVFLR #### [facility] ([id number]) [address] [place] [address] 53888 MCH (RBC) [Entitic mass] 30.6 pg Normal 27-34 [facility] Comment on above: Performed By: #### C OVFLR #### [facility] ([id number]) [address] [place] [address] 13697 MCHC (RBC) [Mass/Vol] 33.7 g/dL Normal 32-36 [facility] Comment on above: Performed By: #### C OVFLR #### [facility] ([id number]) [address] [place] [address] 73119 MCV (RBC) [Entitic vol] 91 fL Normal 80-100 [facility] Comment on above: Performed By: #### C OVFLR #### [facility] ([id number]) [address] [place] [address] 97803 Monocytes (Bld) [#/Vol] 0.7 10*3/uL Normal 0-0.9 [facility] Comment on above: Performed By: #### C OVFLR #### [facility] ([id number]) [address] [place] [address] 90786 Monocytes/100 WBC (Bld) 10.9 % Normal [facility] Comment on above: Performed By: #### C OVFLR #### [facility] ([id number]) [address] [place] [address] 57293 Neutrophils/100 WBC (Bld) 63.9 % Normal [facility] Comment on above: Performed By: #### C OVFLR #### [facility] ([id number]) [address] [place] [address] 85155 Platelet mean volume (Bld) [Entitic vol] 8.0 fL Normal 7-12 [facility] Comment on above: Performed By: #### C OVFLR #### [facility] ([id number]) [address] [place] [address] 86554 Platelets (Bld) [#/Vol] 318 10*3/uL Normal 150-450 [facility] Comment on above: Performed By: #### C OVFLR #### [facility] ([id number]) [address] [place] [address] 53544 RBC COUNT 4.35 X10E12/L Normal 3.80-5.20 [facility] Comment on above: Performed By: #### C OVFLR #### [facility] ([id number]) [address] [place] [address] 60317 WBC (Bld) [#/Vol] 6.7 10*3/uL Normal 4.0-11.0 [facility] Comment on above: Performed By: #### C OVFLR #### [facility] ([id number]) [address] [place] [address] 52458 COMPREHENSIVE METABOLIC PANE Pee 06-29-2023 Albumin [Mass/Vol] 4.2 g/dL Normal 3.2-5.3 [facility] Comment on above: Performed By: #### C OVFLR #### [facility] ([id number]) [address] [place] [address] 17679 ALP [Catalytic activity/Vol] 56 U/L Normal 39-130 [facility] Comment on above: Performed By: #### C OVFLR #### [facility] ([id number]) [address] [place] [address] 97233 ALT [Catalytic activity/Vol] 85 U/L High 0-31 [facility] Comment on above: Performed By: #### C OVFLR #### [facility] ([id number]) [address] [place] [address] 77190 Anion gap [Moles/Vol] 11 mmol/L Normal 5-15 [facility] Comment on above: Performed By: #### C OVFLR #### [facility] ([id number]) [address] [place] [address] 93289 AST [Catalytic activity/Vol] 77 U/L High 0-41 [facility] Comment on above: Performed By: #### C OVFLR #### [facility] ([id number]) [address] [place] [address] 99319 Bilirubin [Mass/Vol] 0.9 mg/dL Normal 0.3-1.2 [facility] Comment on above: Performed By: #### C OVFLR #### [facility] ([id number]) [address] [place] [address] 81581 Calcium [Mass/Vol] 8.5 mg/dL Normal 8.5-10.5 [facility] Comment on above: Performed By: #### C OVFLR #### [facility] ([id number]) [address] [place] [address] 58454 Chloride [Moles/Vol] 97 mmol/L Low 98-109 [facility] Comment on above: Performed By: #### C OVFLR #### [facility] ([id number]) [address] [place] [address] 99590 CO2 [Moles/Vol] 25 mmol/L Normal 22-32 [facility] Comment on above: Performed By: #### C OVFLR #### [facility] ([id number]) [address] [place] [address] 77733 Creatinine [Mass/Vol] 0.82 mg/dL Normal 0.40-1.00 [facility] Comment on above: Result Comment: METH OD TRACEABLE TO IDMS STANDARD Performed By: #### C OVFLR #### [facility] ([id number]) [address] [place] [address] 38891 eGFR (CKD-EPI) NON-RACE DEPENDENT >90 Normal >59 [facility] Comment on above: Result Comment: Reported eGFR is based on the CKD-EPI 2020 equation that does not use a race coefficient. Performed By: #### C OVFLR #### [facility] ([id number]) [address] [place] [address] 22667 Glucose [Mass/Vol] 191 mg/dL High 65-99 [facility] Comment on above: Performed By: #### C OVFLR #### [facility] ([id number]) [address] [place] [address] 76750 Potassium [Moles/Vol] 3.1 mmol/L Low 3.5-5.0 [facility] Comment on above: Performed By: #### C OVFLR #### [facility] ([id number]) [address] [place] [address] 38257 Protein [Mass/Vol] 7.5 g/dL Normal 6.0-8.0 [facility] Comment on above: Performed By: #### C OVFLR #### [facility] ([id number]) [address] [place] [address] 14967 Sodium [Moles/Vol] 133 mmol/L Low 134-146 [facility] Comment on above: Performed By: #### C OVFLR #### [facility] ([id number]) [address] [place] [address] 54388 Urea nitrogen [Mass/Vol] 12 mg/dL Normal 5-23 [facility] Comment on above: Performed By: #### C OVFLR #### [facility] ([id number]) [address] [place] [address] 46542 Glucose Glucometer (BldC) [M ass/Vol]on 06-29-2023 Glucose [Mass/Vol] 161 mg/dL High 65-99 [facility] Glucose [Mass/Vol] 191 mg/dL High 65-99 [facility] Glucose [Mass/Vol] 197 mg/dL High 65-99 [facility] MAGNESIUMon 06-29-2023 Magnesium [Mass/Vol] 2.0 mg/dL Normal 1.8-2.6 [facility] Comment on above: Performed By: #### C OVFLR #### [facility] ([id number]) [address] [place] [address] 15179 POTASSIUMon 06-29-2023 Potassium [Moles/Vol] 3.3 mmol/L Low 3.5-5.0 [facility] Comment on above: Performed By: #### C OVFLR #### [facility] ([id number]) [address] [place] [address] 83129 CBC AND AUTO DIFFon 06-28-19 24 ABSOLUTE BASOPHIL 0.1 X10E9/L Normal 0.0-0.2 [facility] Comment on above: Performed By: #### 1 9123-9, THYR #### [facility] ([id number]) [address], [address] [place] [address] ABSOLUTE NEUTROPHIL 12.7 X10E9/L High 1.5-6.6 [facility] Comment on above: Performed By: #### 1 9123-9, THYR #### [facility] ([id number]) [address], [address] [place] [address] Basophils/100 WBC (Bld) 0.4 % Normal [facility] Comment on above: Performed By: #### 1 9123-9, THYR #### [facility] ([id number]) [address], [address] [place] [address] Eosinophils (Bld) [#/Vol] 0.0 10*3/uL Normal 0.0-0.4 [facility] Comment on above: Performed By: #### 1 9123-9, THYR #### [facility] ([id number]) [address], [address] [place] [address] Eosinophils/100 WBC (Bld) 0.0 % Normal [facility] Comment on above: Performed By: #### 1 9123-9, THYR #### [facility] ([id number]) [address], [address] [place] [address] Erythrocyte distribution width (RBC) [Ratio] 13.5 % Normal 11.5-15.0 [facility] Comment on above: Performed By: #### 1 9123-9, THYR #### [facility] ([id number]) [address], [address] [place] [address] Hematocrit (Bld) [Volume fraction] 42.2 % Normal 35-47 [facility] Comment on above: Performed By: #### 1 9123-9, THYR #### [facility] ([id number]) [address], [address] [place] [address] Hemoglobin (Bld) [Mass/Vol] 14.4 g/dL Normal 11.7-15.5 [facility] Comment on above: Performed By: #### 1 9123-9, THYR #### [facility] ([id number]) [address], [address] [place] [address] Lymphocytes (Bld) [#/Vol] 2.5 10*3/uL Normal 1.0-3.5 [facility] Comment on above: Performed By: #### 1 9123-9, THYR #### [facility] ([id number]) [address], [address] [place] [address] Lymphocytes/100 WBC (Bld) 14.9 % Normal [facility] Comment on above: Performed By: #### 1 9123-9, THYR #### [facility] ([id number]) [address], [address] [place] [address] MCH (RBC) [Entitic mass] 30.8 pg Normal 27-34 [facility] Comment on above: Performed By: #### 1 9123-9, THYR #### [facility] ([id number]) [address], [address] [place] [address] MCHC (RBC) [Mass/Vol] 34.1 g/dL Normal 32-36 [facility] Comment on above: Performed By: #### 1 9123-9, THYR #### [facility] ([id number]) [address], [address] [place] [address] MCV (RBC) [Entitic vol] 90 fL Normal 80-100 [facility] Comment on above: Performed By: #### 1 9123-9, THYR #### [facility] ([id number]) [address], [address] [place] [address] Monocytes (Bld) [#/Vol] 1.5 10*3/uL High 0-0.9 [facility] Comment on above: Performed By: #### 1 9123-9, THYR #### [facility] ([id number]) [address], [address] [place] [address] Monocytes/100 WBC (Bld) 8.9 % Normal [facility] Comment on above: Performed By: #### 1 9123-9, THYR #### [facility] ([id number]) [address], [address] [place] [address] Neutrophils/100 WBC (Bld) 75.8 % Normal [facility] Comment on above: Performed By: #### 1 9123-9, THYR #### [facility] ([id number]) [address], [address] [place] [address] Platelet mean volume (Bld) [Entitic vol] 8.5 fL Normal 7-12 [facility] Comment on above: Performed By: #### 1 9123-9, THYR #### [facility] ([id number]) [address], [address] [place] [address] Platelets (Bld) [#/Vol] 422 10*3/uL Normal 150-450 [facility] Comment on above: Performed By: #### 1 9123-9, THYR #### [facility] ([id number]) [address], [address] [place] [address] RBC COUNT 4.68 X10E12/L Normal 3.80-5.20 [facility] Comment on above: Performed By: #### 1 9123-9, THYR #### [facility] ([id number]) [address], [address] [place] [address] WBC (Bld) [#/Vol] 16.7 10*3/uL High 4.0-11.0 [facility] Comment on above: Performed By: #### 1 9123-9, THYR #### [facility] ([id number]) [address], [address] [place] [address] COMPREHENSIVE METABOLIC PANE Pee 06-28-2023 Albumin [Mass/Vol] 4.8 g/dL Normal 3.2-5.3 [facility] Comment on above: Performed By: #### 1 9123-9, THYR #### [facility] ([id number]) [address], [address] [place] [address] ALP [Catalytic activity/Vol] 64 U/L Normal 39-130 [facility] Comment on above: Performed By: #### 1 9123-9, THYR #### [facility] ([id number]) [address], [address] [place] [address] ALT [Catalytic activity/Vol] 90 U/L High 0-31 [facility] Comment on above: Performed By: #### 1 9123-9, THYR #### [facility] ([id number]) [address], [address] [place] [address] Anion gap [Moles/Vol] 15 mmol/L Normal 5-15 [facility] Comment on above: Performed By: #### 1 9123-9, THYR #### [facility] ([id number]) [address], [address] [place] [address] AST [Catalytic activity/Vol] 88 U/L High 0-41 [facility] Comment on above: Performed By: #### 1 9123-9, THYR #### [facility] ([id number]) [address], [address] [place] [address] Bilirubin [Mass/Vol] 1.1 mg/dL Normal 0.3-1.2 [facility] Comment on above: Performed By: #### 1 9123-9, THYR #### [facility] ([id number]) [address], [address] [place] [address] Calcium [Mass/Vol] 9.0 mg/dL Normal 8.5-10.5 [facility] Comment on above: Performed By: #### 1 9123-9, THYR #### [facility] ([id number]) [address], [address] [place] [address] Chloride [Moles/Vol] 96 mmol/L Low 98-109 [facility] Comment on above: Performed By: #### 1 9123-9, THYR #### [facility] ([id number]) [address], [address] [place] [address] CO2 [Moles/Vol] 22 mmol/L Normal 22-32 [facility] Comment on above: Performed By: #### 1 9123-9, THYR #### [facility] ([id number]) [address], [address] [place] [address] Creatinine [Mass/Vol] 0.97 mg/dL Normal 0.40-1.00 [facility] Comment on above: Result Comment: METH OD TRACEABLE TO IDMS STANDARD Performed By: #### 1 9123-9, THYR #### [facility] ([id number]) [address], [address] [place] [address] GFR/1.73 sq M.predicted among non-blacks MDRD (S/P/Bld) [Vol rate/Area] 79 mL/min/{1.73_m2} Normal >59 [facility] Comment on above: Result Comment: Reported eGFR is based on the CKD-EPI 2020 equation that does not use a race coefficient. Performed By: #### 1 9123-9, THYR #### [facility] ([id number]) [address], [address] [place] [address] Glucose [Mass/Vol] 221 mg/dL High 65-99 [facility] Comment on above: Performed By: #### 1 9123-9, THYR #### [facility] ([id number]) [address], [address] [place] [address] Potassium [Moles/Vol] 3.1 mmol/L Low 3.5-5.0 [facility] Comment on above: Performed By: #### 1 9123-9, THYR #### [facility] ([id number]) [address], [address] [place] [address] Protein [Mass/Vol] 8.1 g/dL High 6.0-8.0 [facility] Comment on above: Performed By: #### 1 9123-9, THYR #### [facility] ([id number]) [address], [address] [place] [address] Sodium [Moles/Vol] 133 mmol/L Low 134-146 [facility] Comment on above: Performed By: #### 1 9123-9, THYR #### [facility] ([id number]) [address], [address] [place] [address] Urea nitrogen [Mass/Vol] 15 mg/dL Normal 5-23 [facility] Comment on above: Performed By: #### 1 9123-9, THYR #### [facility] ([id number]) [address], [address] [place] [address] DRUG SCREEN, URINEon 024 AMPHETAMINE/METHAMP Negative Normal NEG [facility] Comment on above: Result Comment: AMPH /METH screening cut off = 1000 ng/mL Performed By: #### 1 9123-9, THYR #### [facility] ([id number]) [address], [address] [place] [address] BARBITURATES Negative Normal NEG [facility] Comment on above: Result Comment: Nini iturates screening cut off value = 200 ng/mL Performed By: #### 1 9123-9, THYR #### [facility] ([id number]) [address], [address] [place] [address] BENZODIAZEPINES Negative Normal NEG [facility] Comment on above: Result Comment: Ravindra odiazepines screening cut off value = 200 ng/mL Performed By: #### 1 9123-9, THYR #### [facility] ([id number]) [address], [address] [place] [address] CANNABINOIDS Positive Abnormal NEG [facility] Comment on above: Result Comment: Conf irmation available upon request. Cannabinoids/THC screening cut off value = 50 ng/mL Performed By: #### 1 9123-9, THYR #### [facility] ([id number]) [address], [address] [place] [address] COCAINE METABOLITE Negative Normal NEG [facility] Comment on above: Result Comment: Coca ine screening cut off value = 300 ng/mL Performed By: #### 1 9123-9, THYR #### [facility] ([id number]) [address], [address] [place] [address] ECSTASY Negative Normal NEG [facility] Comment on above: Result Comment: Ecst asy screening cut off value = 500 ng/mL This report is intended for use in clinical monitoring or management of patients. Performed By: #### 1 9123-9, THYR #### [facility] ([id number]) [address], [address] [place] [address] METHADONE Negative Normal NEG [facility] Comment on above: Result Comment: Meth adone screening cut off value = 300 ng/mL. Performed By: #### 1 9123-9, THYR #### [facility] ([id number]) [address], [address] [place] [address] OPIATES Negative Normal NEG [facility] Comment on above: Result Comment: Opia rosemarie screening cut off value = 300 ng/mL NOTE: This test is used for the detection of codeine, hydrocodone (>1000 ng/mL), morphine and hydromorphone (>900 ng/mL) in urine. Performed By: #### 1 9123-9, THYR #### [facility] ([id number]) [address], [address] [place] [address] OXYCODONE Negative Normal NEG [facility] Comment on above: Result Comment: Oxyc odone screening cut off value = 300 ng/mL NOTE: This test is used for the detection of oxycodone and oxymorphone in urine. Performed By: #### 1 9123-9, THYR #### [facility] ([id number]) [address], [address] [place] [address] PHENCYCLIDINE Negative Normal NEG [facility] Comment on above: Result Comment: Phen cyclidine screening cut off value = 25 ng/mL Performed By: #### 1 9123-9, THYR #### [facility] ([id number]) [address], [address] [place] [address] Glucose Glucometer (BldC) [M ass/Vol]on 06-28-2023 Glucose [Mass/Vol] 165 mg/dL High 65-99 [facility] Glucose [Mass/Vol] 156 mg/dL High 65-99 [facility] Glucose [Mass/Vol] 206 mg/dL High 65-99 [facility] MAGNESIUMon 06-28-2023 Magnesium [Mass/Vol] 2.0 mg/dL Normal 1.8-2.6 [facility] Comment on above: Performed By: #### 1 9123-9, THYR #### [facility] ([id number]) [address], [address] [place] [address] PHOSPHORUSon 06-28-2023 Phosphate [Mass/Vol] 2.6 mg/dL Normal 2.4-4.9 [facility] Comment on above: Performed By: #### 1 9123-9, THYR #### [facility] ([id number]) [address], [address] [place] [address] POTASSIUMon 06-28-2023 Potassium [Moles/Vol] 3.2 mmol/L Low 3.5-5.0 [facility] Comment on above: Performed By: #### 1 9123-9, THYR #### [facility] ([id number]) [address], [address] [place] [address] Potassium [Moles/Vol] 3.1 mmol/L Low 3.5-5.0 [facility] Comment on above: Performed By: #### 1 9123-9, THYR #### [facility] ([id number]) [address], [address] [place] [address] PROTIME AND INRon 06-28-2023 INR Coag (PPP) [Relative time] 1.1 {INR} Normal 0.8-1.1 [facility] Comment on above: Performed By: #### 1 9123-9, THYR #### [facility] ([id number]) [address], [address] [place] [address] PT Coag (PPP) [Time] 12.8 s Normal 9.8-13.2 [facility] Comment on above: Result Comment: NEW REFERENCE RANGE Performed By: #### 1 9123-9, THYR #### [facility] ([id number]) [address], [address] [place] [address] THYROID PROFILEon 06-28-2023 Free T4 [Mass/Vol] 0.94 ng/dL Normal 0.61-1.60 [facility] Comment on above: Performed By: #### 1 9123-9, THYR #### [facility] ([id number]) [address], [address] [place] [address] TSH 1.50 uIU/mL Normal 0.49-4.67 [facility] Comment on above: Performed By: #### 1 9123-9, THYR #### [facility] ([id number]) [address], [address] [place] [address] URINALYSISon 06-28-2023 Bilirubin Ql (U) MODERATE Abnormal NEG [facility] Comment on above: Result Comment: Not confirmed, interpret positive results with caution. Performed By: #### 1 9123-9, THYR #### [facility] ([id number]) [address], [address] [place] [address] BLOOD/HGB MODERATE Abnormal NEG [facility] Comment on above: Performed By: #### 1 9123-9, THYR #### [facility] ([id number]) [address], [address] [place] [address] Color (U) YELLOW Normal YELLOW [facility] Comment on above: Performed By: #### 1 9123-9, THYR #### [facility] ([id number]) [address], [address] [place] [address] Glucose Ql (U) 100 mg/dL Abnormal NEG [facility] Comment on above: Performed By: #### 1 9123-9, THYR #### [facility] ([id number]) [address], [address] [place] [address] Hyaline casts LM Ql (Urine sed) 1 to 5 Normal 0-2 [facility] Comment on above: Performed By: #### 1 9123-9, THYR #### [facility] ([id number]) [address], [address] [place] [address] Ketones Ql (U) 15 mg/dL Abnormal NEG [facility] Comment on above: Performed By: #### 1 9123-9, THYR #### [facility] ([id number]) [address], [address] [place] [address] Leukocyte esterase Test strip Ql (U) Negative Normal NEG [facility] Comment on above: Performed By: #### 1 9123-9, THYR #### [facility] ([id number]) [address], [address] [place] [address] Nitrite Ql (U) Negative Normal NEG [facility] Comment on above: Performed By: #### 1 9123-9, THYR #### [facility] ([id number]) [address], [address] [place] [address] pH (U) 6.0 [pH] Normal 5.0-8.5 [facility] Comment on above: Performed By: #### 1 9123-9, THYR #### [facility] ([id number]) [address], [address] [place] [address] Protein Ql (U) 100 mg/dL Abnormal NEG [facility] Comment on above: Performed By: #### 1 9123-9, THYR #### [facility] ([id number]) [address], [address] [place] [address] R.B.CELLS 0 to 3 Normal 0-5 [facility] Comment on above: Performed By: #### 1 9123-9, THYR #### [facility] ([id number]) [address], [address] [place] [address] Specific gravity (U) [Rel density] 1.025 Normal 1.003-1.03 5 [facility] Comment on above: Performed By: #### 1 9123-9, THYR #### [facility] ([id number]) [address], [address] [place] [address] SQUAMOUS EPITHELIUM 0 to 3 Normal 0-5 [facility] Comment on above: Performed By: #### 1 9123-9, THYR #### [facility] ([id number]) [address], [address] [place] [address] TURBIDITY CLEAR Normal CLEAR [facility] Comment on above: Performed By: #### 1 9123-9, THYR #### [facility] ([id number]) [address], [address] [place] [address] Urobilinogen Qn (U) 0.2 {Federico'U}/dL Normal <1.1 [facility] Comment on above: Performed By: #### 1 9123-9, THYR #### [facility] ([id number]) [address], [address] [place] [address] W.B.CELLS 0 to 3 Normal 0-5 [facility] Comment on above: Performed By: #### 1 9123-9, THYR #### [facility] ([id number]) [address], [address] [place] [address] BLOOD CULTUREon 06-27-2023 Bacteria identified Aer cx Nom (Bld) CULTURE RESULTS NO GROWTH 5 DAYS Normal [facility] Bacteria identified Aer cx Nom (Bld) CULTURE RESULTS MICROCOCCUS LUTEUS POSSIBLE COLLECTION CONTAMINATION. SINGLE POSITIVE CULTURE IS OF UNCERTAIN CLINICAL SIGNIFICANCE. SUGGEST CONTINUED MONITORING OF REMAINING BLOOD CULTURES. CONTACT MICROBIOLOGY IF FURTHER INFORMATION IS REQUIRED. No Staphylococcus species, Streptococcus species, Entercoccus feacalis, or E.faecium detected by PCR. Abnormal [facility] Comment on above: Performed By: #### 1 9123-9, THYR #### [facility] ([id number]) [address], [address] [place] [address] CBC AND AUTO DIFFon 06-27-19 24 ABSOLUTE BASOPHIL 0.1 X10E9/L Normal 0.0-0.2 [facility] Comment on above: Performed By: #### 1 9123-9, THYR #### [facility] ([id number]) [address], [address] [place] [address] ABSOLUTE NEUTROPHIL 14.4 X10E9/L High 1.5-6.6 [facility] Comment on above: Performed By: #### 1 9123-9, THYR #### [facility] ([id number]) [address], [address] [place] [address] Basophils/100 WBC (Bld) 0.6 % Normal [facility] Comment on above: Performed By: #### 1 9123-9, THYR #### [facility] ([id number]) [address] [address] [place] [address] Eosinophils (Bld) [#/Vol] 0.0 10*3/uL Normal 0.0-0.4 [facility] Comment on above: Performed By: #### 1 9123-9, THYR #### [facility] ([id number]) [address], [facility] [address] [place] [address] Eosinophils/100 WBC (Bld) 0.1 % Normal [facility] Comment on above: Performed By: #### 1 9123-9, THYR #### [facility] ([id number]) [address], [facility] [address] [place] [address] Erythrocyte distribution width (RBC) [Ratio] 13.1 % Normal 11.5-15.0 [facility] Comment on above: Performed By: #### 1 9123-9, THYR #### [facility] ([id number]) [address], [facility] [address] [place] [address] Hematocrit (Bld) [Volume fraction] 43.5 % Normal 35-47 [facility] Comment on above: Performed By: #### 1 9123-9, THYR #### [facility] ([id number]) [address] [address] Hemoglobin (Bld) [Mass/Vol] 15.0 g/dL Normal 11.7-15.5 [facility] Comment on above: Performed By: #### 1 9123-9, THYR #### [facility] ([id number]) [address] [address] Lymphocytes (Bld) [#/Vol] 2.3 10*3/uL Normal 1.0-3.5 [facility] Comment on above: Performed By: #### 1 9123-9, THYR #### [facility] ([id number]) [address], [address] [place] [address] Lymphocytes/100 WBC (Bld) 12.8 % Normal [facility] Comment on above: Performed By: #### 1 9123-9, THYR #### [facility] ([id number]) [address], [address] [place] [address] MCH (RBC) [Entitic mass] 30.7 pg Normal 27-34 [facility] Comment on above: Performed By: #### 1 9123-9, THYR #### [facility] ([id number]) [address], [address] [place] [address] MCHC (RBC) [Mass/Vol] 34.4 g/dL Normal 32-36 [facility] Comment on above: Performed By: #### 1 9123-9, THYR #### [facility] ([id number]) [address], [address] [place] [address] MCV (RBC) [Entitic vol] 89 fL Normal 80-100 [facility] Comment on above: Performed By: #### 1 9123-9, THYR #### [facility] ([id number]) [address], [address] [place] [address] Monocytes (Bld) [#/Vol] 1.4 10*3/uL High 0-0.9 [facility] Comment on above: Performed By: #### 1 9123-9, THYR #### [facility] ([id number]) [address], [address] [place] [address] Monocytes/100 WBC (Bld) 7.5 % Normal [facility] Comment on above: Performed By: #### 1 9123-9, THYR #### [facility] ([id number]) [address], [address] [place] [address] Neutrophils/100 WBC (Bld) 79.0 % Normal [facility] Comment on above: Performed By: #### 1 9123-9, THYR #### [facility] ([id number]) [address], [address] [place] [address] Platelet mean volume (Bld) [Entitic vol] 8.2 fL Normal 7-12 [facility] Comment on above: Performed By: #### 1 9123-9, THYR #### [facility] ([id number]) [address], [address] [place] [address] Platelets (Bld) [#/Vol] 468 10*3/uL High 150-450 [facility] Comment on above: Performed By: #### 1 9123-9, THYR #### [facility] ([id number]) [address], [address] [place] [address] RBC COUNT 4.87 X10E12/L Normal 3.80-5.20 [facility] Comment on above: Performed By: #### 1 9123-9, THYR #### [facility] ([id number]) [address], [address] [place] [address] WBC (Bld) [#/Vol] 18.2 10*3/uL High 4.0-11.0 [facility] Comment on above: Performed By: #### 1 9123-9, THYR #### [facility] ([id number]) [address], [address] [place] [address] COMPREHENSIVE METABOLIC PANE Pee 06-27-2023 Albumin [Mass/Vol] 5.2 g/dL Normal 3.2-5.3 [facility] Comment on above: Performed By: #### 1 9123-9, THYR #### [facility] ([id number]) [address], [address] [place] [address] ALP [Catalytic activity/Vol] 66 U/L Normal 39-130 [facility] Comment on above: Performed By: #### 1 9123-9, THYR #### [facility] ([id number]) [address], [address] [place] [address] ALT [Catalytic activity/Vol] 96 U/L High 0-31 [facility] Comment on above: Performed By: #### 1 9123-9, THYR #### [facility] ([id number]) [address], [address] [place] [address] Anion gap [Moles/Vol] 17 mmol/L High 5-15 [facility] Comment on above: Performed By: #### 1 9123-9, THYR #### [facility] ([id number]) [address], [address] [place] [address] AST [Catalytic activity/Vol] 93 U/L High 0-41 [facility] Comment on above: Performed By: #### 1 9123-9, THYR #### [facility] ([id number]) [address], [address] [place] [address] Bilirubin [Mass/Vol] 1.8 mg/dL High 0.3-1.2 [facility] Comment on above: Performed By: #### 1 9123-9, THYR #### [facility] ([id number]) [address], [address] [place] [address] Calcium [Mass/Vol] 9.5 mg/dL Normal 8.5-10.5 [facility] Comment on above: Performed By: #### 1 9123-9, THYR #### [facility] ([id number]) [address], [address] [place] [address] Chloride [Moles/Vol] 95 mmol/L Low 98-109 [facility] Comment on above: Performed By: #### 1 9123-9, THYR #### [facility] ([id number]) [address], [address] [place] [address] CO2 [Moles/Vol] 20 mmol/L Low 22-32 [facility] Comment on above: Performed By: #### 1 9123-9, THYR #### [facility] ([id number]) [address] [place] [address] Creatinine [Mass/Vol] 1.38 mg/dL High 0.40-1.00 [facility] Comment on above: Result Comment: METH OD TRACEABLE TO IDMS STANDARD Performed By: #### 1 9123-9, THYR #### [facility] ([id number]) [address], [address] [place] [address] GFR/1.73 sq M.predicted among non-blacks MDRD (S/P/Bld) [Vol rate/Area] 52 mL/min/{1.73_m2} Low >59 [facility] Comment on above: Result Comment: Reported eGFR is based on the CKD-EPI 2020 equation that does not use a race coefficient. Performed By: #### 1 9123-9, THYR #### [facility] ([id number]) [address], [address] [place] [address] Glucose [Mass/Vol] 261 mg/dL High 65-99 [facility] Comment on above: Performed By: #### 1 9123-9, THYR #### [facility] ([id number]) [address], [address] [place] [address] Potassium [Moles/Vol] 2.8 mmol/L Low 3.5-5.0 [facility] Comment on above: Performed By: #### 1 9123-9, THYR #### [facility] ([id number]) [address], [address] [place] [address] Protein [Mass/Vol] 9.1 g/dL High 6.0-8.0 [facility] Comment on above: Performed By: #### 1 9123-9, THYR #### [facility] ([id number]) [address], [address] [place] [address] Sodium [Moles/Vol] 132 mmol/L Low 134-146 [facility] Comment on above: Performed By: #### 1 9123-9, THYR #### [facility] ([id number]) [address] [place] [address] Urea nitrogen [Mass/Vol] 16 mg/dL Normal 5-23 [facility] Comment on above: Performed By: #### 1 9123-9, THYR #### [facility] ([id number]) [address], [address] [place] [address] CT ABDOMEN AND PELVIS W CONT on [...] Ferrell MD on 06/27/2023 9:28 PM Normal [facility] LIPASEon 06-27-2023 Lipase [Catalytic activity/Vol] 32 U/L Normal 17-40 [facility] Comment on above: Performed By: #### 1 9123-9, THYR #### [facility] ([id number]) [address], [address] [place] [address] Lactate (P rmey) [Moles/Vol]o n 06-27-2023 LACTATE W/REFLEX 1.8 mmol/L Normal 0.4-2.0 [facility] Comment on above: Result Comment: Result did not trigger repeat Lactate, re-order if needed. Performed By: #### 1 9123-9, THYR #### [facility] ([id number]) [address], [address] [place] [address] SARS/FLU A+B/RSV by NAAT/Mol ecularon 06-27-2023 SARS/FLU [...] operators who are performing tests using either [employer] or [employer] systems and is limited to laboratories that [...] repeat. Fact Sheet for Healthcare Providers: https://www.fda.gov/media/1 02136/download Fact Sheet for Patients: https://www.fda.gov/media/1 95844/download Normal [facility] Comment on above: Performed By: #### 1 9123-9, THYR #### [facility] ([id number]) [address] [place] [address], [address] [place] [address] CBC AND AUTO DIFFon 06-26-19 24 ABSOLUTE BASOPHIL 0.1 X10E9/L Normal 0.0-0.2 [facility] Comment on above: Performed By: #### B MP #### [facility] ([id number]) [address] [facility], [address] [place] [address] ABSOLUTE NEUTROPHIL 8.8 X10E9/L High 1.5-6.6 [facility] Comment on above: Performed By: #### B MP #### [facility] ([id number]) [address], [address] [place] [address] Basophils/100 WBC (Bld) 0.5 % Normal [facility] Comment on above: Performed By: #### B MP #### [facility] ([id number]) [address], [address] [place] [address] Eosinophils (Bld) [#/Vol] 0.0 10*3/uL Normal 0.0-0.4 [facility] Comment on above: Performed By: #### B MP #### [facility] ([id number]) [address], [address] [place] [address] Eosinophils/100 WBC (Bld) 0.1 % Normal [facility] Comment on above: Performed By: #### B MP #### [facility] ([id number]) [address], [address] [place] [address] Erythrocyte distribution width (RBC) [Ratio] 13.3 % Normal 11.5-15.0 [facility] Comment on above: Performed By: #### B MP #### [facility] ([id number]) [address], [address] [place] [address] Hematocrit (Bld) [Volume fraction] 39.1 % Normal 35-47 [facility] Comment on above: Performed By: #### B MP #### [facility] ([id number]) [address], [address] [place] [address] Hemoglobin (Bld) [Mass/Vol] 13.3 g/dL Normal 11.7-15.5 [facility] Comment on above: Performed By: #### B MP #### [facility] ([id number]) [address], [address] [place] [address] Lymphocytes (Bld) [#/Vol] 1.2 10*3/uL Normal 1.0-3.5 [facility] Comment on above: Performed By: #### B MP #### [facility] ([id number]) [address], [address] [place] [address] Lymphocytes/100 WBC (Bld) 11.5 % Normal [facility] Comment on above: Performed By: #### B MP #### [facility] ([id number]) [address], [address] [place] [address] MCH (RBC) [Entitic mass] 30.8 pg Normal 27-34 [facility] Comment on above: Performed By: #### B MP #### [facility] ([id number]) [address], [address] [place] [address] MCHC (RBC) [Mass/Vol] 34.1 g/dL Normal 32-36 [facility] Comment on above: Performed By: #### B MP #### [facility] ([id number]) [address], [address] [place] [address] MCV (RBC) [Entitic vol] 90 fL Normal 80-100 [facility] Comment on above: Performed By: #### B MP #### [facility] ([id number]) [address], [address] [place] [address] Monocytes (Bld) [#/Vol] 0.3 10*3/uL Normal 0-0.9 [facility] Comment on above: Performed By: #### B MP #### [facility] ([id number]) [address], [address] [place] [address] Monocytes/100 WBC (Bld) 3.0 % Normal [facility] Comment on above: Performed By: #### B MP #### [facility] ([id number]) [address], [address] [place] [address] Neutrophils/100 WBC (Bld) 84.9 % Normal [facility] Comment on above: Performed By: #### B MP #### [facility] ([id number]) [address] [address] [place] [address] Platelet mean volume (Bld) [Entitic vol] 8.0 fL Normal 7-12 [facility] Comment on above: Performed By: #### B MP #### [facility] ([id number]) [address] [address] [place] [address] Platelets (Bld) [#/Vol] 335 10*3/uL Normal 150-450 [facility] Comment on above: Performed By: #### B MP #### [facility] ([id number]) [address] [address] [place] [address] RBC COUNT 4.32 X10E12/L Normal 3.80-5.20 [facility] Comment on above: Performed By: #### B MP #### [facility] ([id number]) [address] [address] [place] [address] WBC (Bld) [#/Vol] 10.4 10*3/uL Normal 4.0-11.0 [facility] Comment on above: Performed By: #### B MP #### [facility] ([id number]) [address] [address] [place] [address] COMPREHENSIVE METABOLIC PANE Pee 06-26-2023 Albumin [Mass/Vol] 4.9 g/dL Normal 3.2-5.3 [facility] Comment on above: Performed By: #### B MP #### [facility] ([id number]) [address] [address] [place] [address] ALP [Catalytic activity/Vol] 56 U/L Normal 39-130 [facility] Comment on above: Performed By: #### B MP #### [facility] ([id number]) [address] [place] [address] ALT [Catalytic activity/Vol] 83 U/L High 0-31 [facility] Comment on above: Performed By: #### B MP #### [facility] ([id number]) [address], [address] [place] [address] Anion gap [Moles/Vol] 14 mmol/L Normal 5-15 [facility] Comment on above: Performed By: #### B MP #### [facility] ([id number]) [address], [address] [place] [address] AST [Catalytic activity/Vol] 48 U/L High 0-41 [facility] Comment on above: Performed By: #### B MP #### [facility] ([id number]) [address], [address] [place] [address] Bilirubin [Mass/Vol] 0.9 mg/dL Normal 0.3-1.2 [facility] Comment on above: Performed By: #### B MP #### [facility] ([id number]) [address], [address] [place] [address] Calcium [Mass/Vol] 9.4 mg/dL Normal 8.5-10.5 [facility] Comment on above: Performed By: #### B MP #### [facility] ([id number]) [address], [address] [place] [address] Chloride [Moles/Vol] 104 mmol/L Normal 98-109 [facility] Comment on above: Performed By: #### B MP #### [facility] ([id number]) [address], [address] [place] [address] CO2 [Moles/Vol] 15 mmol/L Low 22-32 [facility] Comment on above: Performed By: #### B MP #### [facility] ([id number]) [address], [address] [place] [address] Creatinine [Mass/Vol] 0.81 mg/dL Normal 0.40-1.00 [facility] Comment on above: Result Comment: METH OD TRACEABLE TO IDMS STANDARD Performed By: #### B MP #### [facility] ([id number]) [address], [address] [place] [address] eGFR (CKD-EPI) NON-RACE DEPENDENT >90 Normal >59 [facility] Comment on above: Result Comment: Reported eGFR is based on the CKD-EPI 2020 equation that does not use a race coefficient. Performed By: #### B MP #### [facility] ([id number]) [address], [address] [place] [address] Glucose [Mass/Vol] 230 mg/dL High 65-99 [facility] Comment on above: Performed By: #### B MP #### [facility] ([id number]) [address], [address] [place] [address] Potassium [Moles/Vol] 2.9 mmol/L Low 3.5-5.0 [facility] Comment on above: Performed By: #### B MP #### [facility] ([id number]) [address], [address] [place] [address] Protein [Mass/Vol] 7.8 g/dL Normal 6.0-8.0 [facility] Comment on above: Performed By: #### B MP #### [facility] ([id number]) [address], [address] [place] [address] Sodium [Moles/Vol] 133 mmol/L Low 134-146 [facility] Comment on above: Performed By: #### B MP #### [facility] ([id number]) [address], [address] [place] [address] Urea nitrogen [Mass/Vol] 6 mg/dL Normal 5-23 [facility] Comment on above: Performed By: #### B MP #### [facility] ([id number]) [address], [address] [place] [address] CT ABDOMEN AND PELVIS W CONT on [...] Keegan Law on 06/26/2023 4:39 PM Normal [facility] Glucose Glucometer (dC) [M ass/Vol]on 06-26-2023 Glucose [Mass/Vol] 217 mg/dL High 65-99 [facility] HCG ( test) Ql (U)o n 06-26-2023 Beta HCG ( test) Ql (U) Negative Normal NEG [facility] Comment on above: Performed By: #### B MP #### [facility] ([id number]) [address], [address] [place] [address] LIPASEon 06-26-2023 Lipase [Catalytic activity/Vol] 24 U/L Normal 17-40 [facility] Comment on above: Performed By: #### B MP #### [facility] ([id number]) [address], [address] [place] [address] MAGNESIUMon 06-26-2023 Magnesium [Mass/Vol] 1.4 mg/dL Low 1.8-2.6 [facility] Comment on above: Performed By: #### B MP #### [facility] ([id number]) [address], [address] [place] [address] URN MACROSCOPIC NURon 2023 BILIRUBIN SAE Negative Normal NEG [facility] Comment on above: Performed By: #### B MP #### [facility] ([id number]) [address], [address] [place] [address] BLOOD/HGB SAE Negative Normal NEG [facility] Comment on above: Performed By: #### B MP #### [facility] ([id number]) [address], [address] [place] [address] GLUCOSE SAE 500 mg/dL Abnormal NEG [facility] Comment on above: Performed By: #### B MP #### [facility] ([id number]) [address], [address] [place] [address] KETONES SAE >=160 Abnormal NEG [facility] Comment on above: Performed By: #### B MP #### [facility] ([id number]) [address], [address] [place] [address] LEUKOCYTE ESTERASE SAE Negative Normal NEG [facility] Comment on above: Performed By: #### B MP #### [facility] ([id number]) [address], [address] [place] [address] NITRITE SAE Negative Normal NEG [facility] Comment on above: Performed By: #### B MP #### [facility] ([id number]) [address], [address] [place] [address] PH SAE 5.5 Normal 5.0-8.5 [facility] Comment on above: Performed By: #### B MP #### [facility] ([id number]) [address] [place] [address] PROTEIN SAE Trace Abnormal NEG [facility] Comment on above: Performed By: #### B MP #### [facility] ([id number]) [address], [address] [place] [address] SPECIFIC GRAVITY SAE 1.015 Normal 1.003-1 .03 5 [facility] Comment on above: Performed By: #### B MP #### [facility] ([id number]) [address], [address] [place] [address] UROBILINOGEN SAE 0.2 eu/dL Normal <1.1 [facility] Comment on above: Performed By: #### B MP #### [facility] ([id number]) [address], [address] [place] [address] BASIC METABOLIC PANLon 06-06 Anion gap [Moles/Vol] 12 mmol/L Normal 5-15 [facility] Comment on above: Performed By: #### C BCA, BMP, 6873-4 #### [facility] ([id number]) [address] [place] [address], [place] [address] Calcium [Mass/Vol] 9.8 mg/dL Normal 8.5-10.5 [facility] Comment on above: Performed By: #### C PAVITHRA HAYNES, 6873-4 #### [facility] ([id number]) [address] [place] [address] Chloride [Moles/Vol] 95 mmol/L Low 98-109 [facility] Comment on above: Performed By: #### C PAVITHRA HAYNES, 6873-4 #### [facility] ([id number]) [address] [place] [address] CO2 [Moles/Vol] 25 mmol/L Normal 22-32 [facility] Comment on above: Performed By: #### C PAVITHRA HAYNES, 6873-4 #### [facility] ([id number]) [address] [place] [address] Creatinine [Mass/Vol] 1.00 mg/dL Normal 0.40-1.00 [facility] Comment on above: Result Comment: METH OD TRACEABLE TO IDMS STANDARD Performed By: #### C PAVITHRA HAYNES, 6873-4 #### [facility] ([id number]) [address] [place] [address] GFR/1.73 sq M.predicted among non-blacks MDRD (S/P/Bld) [Vol rate/Area] 76 mL/min/{1.73_m2} Normal >59 [facility] Comment on above: Result Comment: Reported eGFR is based on the CKD-EPI 2020 equation that does not use a race coefficient. Performed By: #### C PAVITHRA HAYNES, 6873-4 #### [facility] ([id number]) [address] [place] [address] Glucose [Mass/Vol] 468 mg/dL Critically high 65-99 [facility] Comment on above: Performed By: #### C PAVITHRA HAYNES, 6873-4 #### [facility] ([id number]) [address] [place] [address]70 Potassium [Moles/Vol] 3.7 mmol/L Normal 3.5-5.0 [facility] Comment on above: Performed By: #### C PAVITHRA HAYNES, 6873-4 #### [facility] ([id number]) [address] [place] [address] 84740 Sodium [Moles/Vol] 132 mmol/L Low 134-146 [facility] Comment on above: Performed By: #### C PAVITHRA HAYNES, 6873-4 #### [facility] ([id number]) [address] [place] [address] 32170 Urea nitrogen [Mass/Vol] 13 mg/dL Normal 5-23 [facility] Comment on above: Performed By: #### PAVITHRA Ayon BCA, 6873-4 #### [facility] ([id number]) [address] [place] [address]203 Beta hydroxybutyrate [Moles/ Vol]on 06-06-2023 BetaHydroxybutyrate 0.09 mmol/L Normal 0.02-0.27 [facility] Comment on above: Performed By: #### B MP #### [facility] ([id number]) [address], [address] [place] [address] CBC AND AUTO DIFFon 06-06-19 24 ABSOLUTE BASOPHIL 0.0 X10E9/L Normal 0.0-0.2 [facility] Comment on above: Performed By: #### C PAVITHRA HAYNES, 6873-4 #### [facility] ([id number]) [address] [place] [address] 18241 ABSOLUTE NEUTROPHIL 4.0 X10E9/L Normal 1.5-6.6 [facility] Comment on above: Performed By: #### PAVITHRA Ayon BCA, 6873-4 #### [facility] ([id number]) [address] [place] [address] 32674 Basophils/100 WBC (Bld) 0.5 % Normal [facility] Comment on above: Performed By: #### PAVITHRA Ayon BCA, 6873-4 #### [facility] ([id number]) [address] [place] [address] 67391 Eosinophils (Bld) [#/Vol] 0.2 10*3/uL Normal 0.0-0.4 [facility] Comment on above: Performed By: #### PAVITHRA Ayon BCA, 734 #### [facility] ([id number]) [address] [place] [address] 46742 Eosinophils/100 WBC (Bld) 2.5 % Normal [facility] Comment on above: Performed By: #### PAVITHRA Ayon BCA, 734 #### [facility] ([id number]) [address] [place] [address] 57340 Erythrocyte distribution width (RBC) [Ratio] 13.3 % Normal 11.5-15.0 [facility] Comment on above: Performed By: #### PAVITHRA Ayon BCA, 734 #### [facility] ([id number]) [address] [place] [address] 31076 Hematocrit (Bld) [Volume fraction] 40.0 % Normal 35-47 [facility] Comment on above: Performed By: #### PAVITHRA Ayon BCA, 73 #### [facility] ([id number]) [address] [place] [address] 12945 Hemoglobin (Bld) [Mass/Vol] 13.5 g/dL Normal 11.7-15.5 [facility] Comment on above: Performed By: #### PAVITHRA Ayon BCA, 73-4 #### [facility] ([id number]) [address] [place] [address] 36429 Lymphocytes (Bld) [#/Vol] 3.2 10*3/uL Normal 1.0-3.5 [facility] Comment on above: Performed By: #### PAVITHRA Ayon BCA, 734 #### [facility] ([id number]) [address] [place] [address] 41738 Lymphocytes/100 WBC (Bld) 39.7 % Normal [facility] Comment on above: Performed By: #### PAVITHRA Ayon BCA, 6872-08 #### [facility] ([id number]) [address] [place] [address] 17562 MCH (RBC) [Entitic mass] 30.8 pg Normal 27-34 [facility] Comment on above: Performed By: #### PAVITHRA Ayon BCA, 6872-08 #### [facility] ([id number]) [address] [place] [address] 88138 MCHC (RBC) [Mass/Vol] 33.6 g/dL Normal 32-36 [facility] Comment on above: Performed By: #### PAVITHRA Ayon BCA, 6872-08 #### [facility] ([id number]) [address] [place] [address] 15080 MCV (RBC) [Entitic vol] 92 fL Normal 80-100 [facility] Comment on above: Performed By: #### PAVITHRA Ayon BCA, 73 #### [facility] ([id number]) [address] [place] [address] 16355 Monocytes (Bld) [#/Vol] 0.6 10*3/uL Normal 0-0.9 [facility] Comment on above: Performed By: #### PAVITHRA Ayon BCA, 73 #### [facility] ([id number]) [address] [place] [address] 14084 Monocytes/100 WBC (Bld) 7.0 % Normal [facility] Comment on above: Performed By: #### PAVITHRA Ayon BCA, 73 #### [facility] ([id number]) [address] [place] [address] 55666 Neutrophils/100 WBC (Bld) 50.3 % Normal [facility] Comment on above: Performed By: #### PAVITHRA Ayon BCA, 6873-4 #### [facility] ([id number]) [address] [place] [address] 77558 Platelet mean volume (Bld) [Entitic vol] 8.3 fL Normal 7-12 [facility] Comment on above: Performed By: #### PAVITHRA Ayon BCA, 6873-4 #### [facility] ([id number]) [address] [place] [address] 67992 Platelets (Bld) [#/Vol] 378 10*3/uL Normal 150-450 [facility] Comment on above: Performed By: #### PAVITHRA Ayon BCA, 6873-4 #### [facility] ([id number]) [address] [place] [address] 05171 RBC COUNT 4.38 X10E12/L Normal 3.80-5.20 [facility] Comment on above: Performed By: #### PAVITHRA Ayon BCA, 6873-4 #### [facility] ([id number]) [address] [place] [address] 45828 WBC (Bld) [#/Vol] 8.0 10*3/uL Normal 4.0-11.0 [facility] Comment on above: Performed By: #### PAVITHRA Ayon BCA, 6873-4 #### [facility] ([id number]) [address] [place] [address] 66842 Glucose Glucometer (BldC) [M ass/Vol]on 06-06-2023 Glucose [Mass/Vol] 443 mg/dL Critically high 65-99 [facility] Glucose [Mass/Vol] 389 mg/dL High 65-99 [facility] URN MACROSCOPIC NURon 2023 BILIRUBIN SAE Negative Normal NEG [facility] Comment on above: Performed By: #### N UM #### [facility] ([id number]) [address] [place] [address] 15781 BLOOD/HGB SAE Negative Normal NEG [facility] Comment on above: Performed By: #### N UM #### [facility] ([id number]) [address] [place] [address] [place] [address] GLUCOSE SAE >=1000 Abnormal NEG [facility] Comment on above: Performed By: #### N UM #### [facility] ([id number]) [address] [place] [address] 70066 KETONES SAE Negative Normal NEG [facility] Comment on above: Performed By: #### N UM #### [facility] ([id number]) [address] [place] [address] [place] [address] LEUKOCYTE ESTERASE SAE Negative Normal NEG [facility] Comment on above: Performed By: #### N UM #### [facility] ([id number]) [address] [place] [address] 24061 NITRITE SAE Negative Normal NEG [facility] Comment on above: Performed By: #### N UM #### [facility] ([id number]) [address] [place] [address] [place] [address] PH SAE 6.0 Normal 5.0-8.5 [facility] Comment on above: Performed By: #### N UM #### [facility] ([id number]) [address] [place] [address] 20597 PROTEIN SAE Negative Normal NEG [facility] Comment on above: Performed By: #### N UM #### [facility] ([id number]) [address] [place] [address] [place] [address] SPECIFIC GRAVITY SAE 1.015 Normal 1.003-[address] [place] [address] Comment on above: Performed By: #### N UM #### [facility] ([id number]) [address] [place] [address] 27073 UROBILINOGEN SAE 0.2 eu/dL Normal <1.1 [facility] Comment on above: Performed By: #### N UM #### [facility] ([id number]) [address] [place] [address] 78219 VENOUS BLOOD GASon 4 FLORA'S TEST Normal [facility] Comment on above: Performed By: #### V BG #### [facility] ([id number]) [address] [place] [address] 75069 Base excess Calc (Bld) [Moles/Vol] 1.0 mmol/L Normal 0.0-2.0 [facility] Comment on above: Performed By: #### V BG #### [facility] ([id number]) [address] [place] [address] 25138 Body temperature 98.6 [degF] Normal 37.0 [facility] Comment on above: Performed By: #### V BG #### [facility] ([id number]) [address] [place] [address] 33161 HCO3 (Bld) [Moles/Vol] 26.8 mmol/L High 20.0-24.0 [facility] Comment on above: Performed By: #### V BG #### [facility] ([id number]) [address] [place] [address] 60685 INSP. O2 CONC. 21 % Normal [facility] Comment on above: Performed By: #### V BG #### [facility] ([id number]) [address] [place] [address] 68282 Oxygen saturation in Blood 53.0 % Low >80.0 [facility] Comment on above: Performed By: #### V BG #### [facility] ([id number]) [address] [place] [address] [place] [address] OXYGEN SOURCE RoomAir Normal [facility] Comment on above: Performed By: #### V BG #### [facility] ([id number]) [address] [place] [address] [place] [address] PCO2, VENOUS 47.7 MMHG Normal 35-50 [facility] Comment on above: Performed By: #### V BG #### [facility] ([id number]) [address] [place] [address] [place] [address] PH, VENOUS 7.358 Normal 7.320-7.42 0 [facility] Comment on above: Performed By: #### V BG #### [facility] ([id number]) [address] [place] [address] 68887 PO2, VENOUS 30 MMHG Normal 30-50 [facility] Comment on above: Performed By: #### V BG #### [facility] ([id number]) [address] [place] [address] [place] [address] SAMPLE SITE N/A Normal [facility] Comment on above: Performed By: #### V BG #### [facility] ([id number]) [address] [place] [address] [place] [address] SAMPLE TYPE VENOUS Normal [facility] Comment on above: Performed By: #### V BG #### [facility] ([id number]) [address] [place] [address] 26223 SARS/FLU A+B/RSV by NAAT/Mol ularon 05-31-2023 SARS/FLU [...] operators who are performing tests using either Wibki or AwesomeHighlighter systems and is limited to laboratories that [...] repeat. Fact Sheet for Healthcare Providers: https://www.fda.gov/media/1 38853/download Fact Sheet for Patients: https://www.fda.gov/media/1 58314/download Normal [facility] Comment on above: Performed By: #### C OVFLR #### [facility] ([id number]) [address] [place] [address], [place] [address] MAGNESIUMon 05-22-2023 Magnesium [Mass/Vol] 1.5 mg/dL Low 1.8-2.6 [facility] Comment on above: Performed By: #### 1 9123-9, THYR #### [facility] ([id number]) [address], [address] [place] [address] THYROID PROFILEon 05-22-2023 Free T4 [Mass/Vol] 0.82 ng/dL Normal 0.61-1.60 [facility] Comment on above: Performed By: #### 1 9123-9, THYR #### [facility] ([id number]) [address], [address] [place] [address] TSH 1.11 uIU/mL Normal 0.49-4.67 [facility] Comment on above: Performed By: #### 1 9123-9, THYR #### [facility] ([id number]) [address], [address] [place] [address] XR ANKLE 3+ VIEWS RIGHTon XR ANKLE [...] Anion gap [Moles/Vol] 8 mmol/L Normal 5-15 [facility] Comment on above: Performed By: #### B MP #### [facility] ([id number]) [address], [address] [place] [address] Calcium [Mass/Vol] 9.4 mg/dL Normal 8.5-10.5 [facility] Comment on above: Performed By: #### B MP #### [facility] ([id number]) [address] [place] [address] Chloride [Moles/Vol] 105 mmol/L Normal 98-109 [facility] Comment on above: Performed By: #### B MP #### [facility] ([id number]) [address], [address] [place] [address] CO2 [Moles/Vol] 24 mmol/L Normal 22-32 [facility] Comment on above: Performed By: #### B MP #### [facility] ([id number]) [address], [address] [place] [address] Creatinine [Mass/Vol] 0.83 mg/dL Normal 0.40-1.00 [facility] Comment on above: Result Comment: METH OD TRACEABLE TO IDMS STANDARD Performed By: #### B MP #### [facility] ([id number]) [address] [place] [address] eGFR (CKD-EPI) NON-RACE DEPENDENT >90 Normal >59 [facility] Comment on above: Result Comment: Reported eGFR is based on the CKD-EPI 2020 equation that does not use a race coefficient. Performed By: #### B MP #### [facility] ([id number]) [address] [place] [address] Glucose [Mass/Vol] 120 mg/dL High 65-99 [facility] Comment on above: Performed By: #### B MP #### [facility] ([id number]) [address], [address] [place] [address] Potassium [Moles/Vol] 3.7 mmol/L Normal 3.5-5.0 [facility] Comment on above: Performed By: #### B MP #### [facility] ([id number]) [address], [address] [place] [address] Sodium [Moles/Vol] 137 mmol/L Normal 134-146 [facility] Comment on above: Performed By: #### B MP #### [facility] ([id number]) [address], [address] [place] [address] Urea nitrogen [Mass/Vol] 11 mg/dL Normal 5-23 [facility] Comment on above: Performed By: #### B MP #### [facility] ([id number]) [address], [address] [place] [address] XR hip RT min 2V(w/wo pelvis )*on 11-09-2022 XR hip RT min 2V(w/wo pelvis)* [address] [address] XRay Report Signed Patient: Xiang Mahoney MR#: [id number] : 1990 Acct:[id number] Age/Sex: 31 / F ADM Date: 11/09/22 Loc: XD Room: Type: [facility] Attending Dr: Pratima SMITH Copies to: [...] Brittany Snyder M.D.11/09/2022 3:19 PM Dictation Location: [place] [address] Transcribed By: [facility] 11/09/22 1519 Dictated By: Brittany Snyder MD 11/09/22 1515 Signed By: 11/09/22 151 Normal [facility] XR hip RT min 2V(w/wo pelvis)* [facility] [employer] Other XR hip RT min 2V(w/wo pelvis)* [facility] [employer] Other XR hip RT min 2V(w/wo pelvis)* [address] [facility] pyco Other XR hip RT min 2V(w/wo pelvis)* ROHINI Mendoza [address] pyco Other XR hip RT min 2V(w/wo pelvis)* XRay Report pyco Other XR hip RT min 2V(w/wo pelvis)* Signed pyco Other XR hip RT min 2V(w/wo pelvis)* Patient: Xiang Mahoney MR#: [id number] pyco Other XR hip RT min 2V(w/wo pelvis)* 636 pyco Other XR hip RT min 2V(w/wo pelvis)* : 1990 Acct:[id number] pyco Other XR hip RT min 2V(w/wo pelvis)* Age/Sex: 31 / F ADM Date: 11/09/22 pyco Other XR hip RT min 2V(w/wo pelvis)* Loc: XD Room: Type: [facility] [employer] Other XR hip RT min 2V(w/wo pelvis)* Attending Dr: Pratima SMITH pyco Other XR hip RT min 2V(w/wo pelvis)* Copies to: LUIS Holbrook pyco Other XR hip RT min 2V(w/wo pelvis)* Ordering Provider: LUIS Holbrook pyco Other XR hip RT min 2V(w/wo pelvis)* Date of Service: 11/09/22 pyco Other XR hip RT min 2V(w/wo pelvis)* XR/XR hip RT min 2V(w/wo pelvis)*: M25.559 pyco Other XR hip RT min 2V(w/wo pelvis)* RIGHT HIP - 2 views: [employer] Other XR hip RT min 2V(w/wo pelvis)* CLINICAL HISTORY: Posterior right hip pain radiating to the joint for months. No injury. pyco Other XR hip RT min 2V(w/wo pelvis)* COMPARISON: 10/23/2017 [employer] Other XR hip RT min 2V(w/wo pelvis)* AP and frog-lateral views were obtained. There is no evidence of fracture or dislocation. The hip pyco Other XR hip RT min 2V(w/wo pelvis)* joint space is maintained. No hypertrophy is seen. There is sclerosis at the SI joint. There is a pyco Other XR hip RT min 2V(w/wo pelvis)* partially imaged lower lumbar fusion hardware. There are no significant soft tissue abnormalities. pyco Other XR hip RT min 2V(w/wo pelvis)* XR/XR hip RT min 2V(w/wo pelvis)* pyco Other XR hip RT min 2V(w/wo pelvis)* IMPRESSION: pyco Other XR hip RT min 2V(w/wo pelvis)* NO ACUTE BONY INJURY. [employer] Other XR hip RT min 2V(w/wo pelvis)* Impression dictated by: Brittany Snyder M.D.11/09/2022 3:19 PM pyco Other XR hip RT min 2V(w/wo pelvis)* Dictation Location: [facility]- pyco Other XR hip RT min 2V(w/wo pelvis)* Transcribed By: EDDY 11/09/22 1519 pyco Other XR hip RT min 2V(w/wo pelvis)* Dictated By: Brittany Snyder MD 11/09/22 2404 pyco Other XR hip RT min 2V(w/wo pelvis)* Signed By: pyco Other XR hip RT min 2V(w/wo pelvis)* 11/09/22 7315 pyco Other Bilirubin Test strip Ql (U)O rdered By: Cristel Allen on 09-08-2022 Bilirubin Ql (U) Negative Negative [facility] Color Auto (U)Ordered By: Annamarie Allen on 09-08-2022 Color (U) Yellow [facility] HCG ( test) IA.rapi d Ql (U)Ordered By: Cristel Allen on 09-08-2022 HCG ( test) Ql (U) Negative [facility] Ketones Auto test strip (U) [Mass/Vol]Ordered By: Cristel Allen on 09-08-2022 Ketones (U) [Mass/Vol] Trace Negative [facility] Nitrite Test strip Ql (U)Ord ered By: Cristel Allen on 09-08-2022 Nitrite Ql (U) Negative Negative [facility] Protein Auto test strip (U) [Mass/Vol]Ordered By: Cristel Allen on 09-08-2022 Protein (U) [Mass/Vol] Negative Negative [facility] Specific gravity Auto test s trip (U) [Rel density]Ordered By: Cristel Allen on 09-08-2022 Specific gravity (U) [Rel density] 1.026 1.001-1.03 0 [facility] Urine clarity by refractomet ry automatedOrdered By: Cristel Allen on 09-08-2022 Clarity Refractometry automated (U) Clear Clear [facility] Urine glucose measurement by automated test strip (mass/volume)Ordered By: Cristel Allen on 09-08-2022 Glucose Auto test strip (U) [Mass/Vol] Normal mg/dL Normal [facility] Urine hemoglobin detection b y automated test stripOrdered By: Cristel Allen on 09-08-2022 Hemoglobin Auto test strip Ql (U) Negative Negative [facility] Urine leukocyte esterase det ection by automated test stripOrdered By: Cristel Allen on 09-08-2022 Leukocyte esterase Auto test strip Ql (U) Negative Negative [facility] Urobilinogen Auto test strip (U) [Mass/Vol]Ordered By: Cristel Allen on 09-08-2022 Urobilinogen (U) [Mass/Vol] Normal mg/dL Normal [facility] pH Auto test strip (U)Ordere d By: Cristel Allen on 09-08-2022 pH (U) 6.5 [pH] 5.0-9.0 [facility] Patient Educationon 04-17-20 Patient Education Urology Hematuria, [...] these instructions at home: Medicines ? Take ceve-rjs-daecmry and prescription medicines only as told by [...] the blood stops without treatment. ? Take oqrz-nde-lmfoyec and prescription medicines only as told by your health care provider. ? Drink enough fluid to keep your urine clear or pale yellow. This information is not intended to replace advice given to you by your health care provider. Make sure you discuss any questions you have with your health care provider. Document Released: 05/07/2006 Document Revised: 10/01/2019 Document Reviewed: 06/09/2017 [employer] Patient Education ? 2019 [employer] [facility] Provider Letteron 04-17-2022 Provider Letter (Inserted Image. Brittni ble to display) April 17, 2022 XIANG MAHONEY S [address] [place] [address] XIANG MAHONEY S 1990 Dear Xiang, You [...] [facility] [address], [place] [address] [facility] XR ANKLE LEFT (MIN 3 VIEWS)o n [...] Te Padilla MD 03/23/[address] [facility] XR FOOT LEFT (MIN 3 VIEWS)on 03-23-2022 [...] Te Padilla MD 03/23/[address] [facility] XR LUMBAR SPINE (2-3 VIEWS)o n 03-23-2022 [...] Oziel Bull MD 03/23/[address] [facility] CBC with Auto Differentialon 03-14-2022 Absolute Eos # 0.00 [facility] Absolute Immature Granulocyte 0.00 [facility] Absolute Lymph # 0.26 Low [facility] Absolute [place] # 0.45 [facility] Basophils (Bld) [#/Vol] 0.06 10*3/uL [facility] Basophils/100 WBC (Bld) 1 % 0 - 2 % [facility] Eosinophils/100 WBC (Bld) 0 % Low 1 - 4 % [facility] Hematocrit (Bld) [Volume fraction] 38.8 % 36.3 - 47.1 % [facility] Hemoglobin (Bld) [Mass/Vol] 13.0 g/dL 11.9 - 15.1 g/dL [facility] Immature granulocytes/100 WBC (Bld) 0 % 0 [facility] Interpretation and review of laboratory results Abnormal [facility] Lymphocytes/100 WBC (Bld) 4 % Low 24 - 44 % [facility] MCH (RBC) [Entitic mass] 29.7 pg 25.2 - 33.5 pg [facility] MCHC (RBC) [Mass/Vol] 33.5 g/dL 28.4 - 34.8 g/dL [facility] MCV (RBC) [Entitic vol] 88.6 fL 82.6 - 102.9 fL [facility] Monocytes/100 WBC (Bld) 7 % 1 - 7 % [facility] Morphology Jack (Bld) [Interp] Normal [facility] NRBC Automated 0.0 0.0 per 100 WBC [facility] Platelet distribution width (Bld) [Ratio] 13.9 % 11.8 - 14.4 % [facility] Platelet mean volume (Bld) [Entitic vol] 9.9 fL 8.1 - 13.5 fL [facility] Platelets (Bld) [#/Vol] 235 10*3/uL [facility] RBC (Bld) [#/Vol] 4.38 10*6/uL 3.95 - 5.11 m/uL [facility] Segmented neutrophils/100 WBC (Bld) 88 % High 36 - 66 % [facility] Segs Absolute 5.63 [facility] WBC (Bld) [#/Vol] 6.4 10*3/uL [facility] CBC with Diffon 03-14-2022 Abs. Basophil 0.06 k/uL Normal 0.0-0.2 [facility] Comment on above: Performed By: #### L IP, HCG, TROPI, CDP, CP ####[place] [id number] [place], [place] [id number] lab Director: Fabien Dunne MD Abs.Imm.Granulocyte 0.00 k/uL Normal 0.00-0.30 [facility] Comment on above: Performed By: #### L IP, HCG, TROPI, CDP, CP ####[facility] [address] [place] [address])[phone] Director: Fabien Dunne MD Abs.Neutrophil (Seg) 5.63 k/uL Normal 1.8-7.7 [facility] Comment on above: Performed By: #### L IP, HCG, TROPI, CDP, CP ####[place], [place] [address])[phone] Director: Fabien Dunne MD Basophils/100 WBC (Bld) 1 % Normal 0-2 [facility] Comment on above: Performed By: #### L IP, HCG, TROPI, CDP, CP ####[place], [place] [address])[phone] Director: Fabien Dunne MD Eosinophils (Bld) [#/Vol] 0.00 10*3/uL Normal 0.0-0.4 [facility] Comment on above: Performed By: #### L IP, HCG, TROPI, CDP, CP ####[address] [address])[phone] Director: Fabien Dunne MD Eosinophils/100 WBC (Bld) 0 % Low 1-4 [facility] Comment on above: Performed By: #### L IP, HCG, TROPI, CDP, CP ####[place], [place] [address])[phone] Director: Fabien Dunne MD Immature granulocytes/100 WBC (Bld) 0 % Normal 0 [facility] Comment on above: Performed By: #### L IP, HCG, TROPI, CDP, CP ####[address] [address])[phone] Director: Fabien Dunne MD Lymphocytes (Bld) [#/Vol] 0.26 10*3/uL Low 1.0-4.8 [facility] Comment on above: Performed By: #### L IP, HCG, TROPI, CDP, CP ####[facility] [address] [place], [place] [id number])[phone] Director: Fabien Dunne MD Lymphocytes/100 WBC (Bld) 4 % Low 24-44 [facility] Comment on above: Performed By: #### L IP, HCG, TROPI, CDP, CP ####[facility] [address] [place], [place] [address])[phone] Director: Fabien Dunne MD Monocytes (Bld) [#/Vol] 0.45 10*3/uL Normal 0.1-0.8 [facility] Comment on above: Performed By: #### L IP, HCG, TROPI, CDP, CP ####[facility] [address] [place] [address])[phone] Director: Fabien Dunne MD Monocytes/100 WBC (Bld) 7 % Normal 1-7 [facility] Comment on above: Performed By: #### L IP, HCG, TROPI, CDP, CP ####[facility] [address] [place] [id number])[phone] Director: Fabien Dunne MD Morphology Jack (Bld) [Interp] Normal Normal [facility] Comment on above: Performed By: #### L IP, HCG, TROPI, CDP, CP ####[facility] [address] [place] [address] [phone] Director: Fabien Dunne MD Neutrophil (Seg) 88 % High 36-66 [facility] Comment on above: Performed By: #### L IP, HCG, TROPI, CDP, CP ####[place] [facility] [address] [place], [place] [phone] Director: Fabien Dunne MD Erythrocyte distribution width (RBC) [Ratio] 13.9 % Normal 11.8-14.4 [facility] Comment on above: Performed By: #### L IP, HCG, TROPI, CDP, CP ####[facility] [address] [place] [address] Lab Director: Fabien Dunne MD Hematocrit (Bld) [Volume fraction] 38.8 % Normal 36.3-47.1 [facility] Comment on above: Performed By: #### L IP, HCG, TROPI, CDP, CP ####[address] [phone] Director: Fabien Dunne MD Hemoglobin (Bld) [Mass/Vol] 13.0 g/dL Normal 11.9-15.1 [facility] Comment on above: Performed By: #### L IP, HCG, TROPI, CDP, CP ####[address] [phone] Director: Fabien Dunne MD MCH (RBC) [Entitic mass] 29.7 pg Normal 25.2-33.5 [facility] Comment on above: Performed By: #### L IP, HCG, TROPI, CDP, CP ####[address] [phone] Director: Fabien Dunne MD MCHC (RBC) [Mass/Vol] 33.5 g/dL Normal 28.4-34.8 [facility] Comment on above: Performed By: #### L IP, HCG, TROPI, CDP, CP ####[facility] [address] [place] [address] [phone] Director: Fabien Dunne MD MCV (RBC) [Entitic vol] 88.6 fL Normal 82.6-102.9 [facility] Comment on above: Performed By: #### L IP, HCG, TROPI, CDP, CP ####[facility] [address] [place] [address] Lab Director: Fabien Dunne MD NRBC Automated 0.0 per 100 WBC Normal 0.0 [facility] Comment on above: Performed By: #### L IP, HCG, TROPI, CDP, CP ####[facility] [address] [place], [place] [phone] Director: Fabien Dunne MD Platelet mean volume (Bld) [Entitic vol] 9.9 fL Normal 8.1-13.5 [facility] Comment on above: Performed By: #### L IP, HCG, TROPI, CDP, CP ####[facility] [address] [place], [place] [phone] Director: Fabien Dunne MD Platelets (Bld) [#/Vol] 235 10*3/uL Normal 138-453 [facility] Comment on above: Performed By: #### L IP, HCG, TROPI, CDP, CP ####[facility] [address] [place] [address] [phone] Director: Fabien Dunne MD RBC (Bld) [#/Vol] 4.38 10*6/uL Normal 3.95-5.11 [facility] Comment on above: Performed By: #### L IP, HCG, TROPI, CDP, CP ####[facility] [address] [place], [place] [phone] Director: Fabien Dunne MD WBC (Bld) [#/Vol] 6.4 10*3/uL Normal 3.5-11.3 [facility] Comment on above: Performed By: #### L IP, HCG, TROPI, CDP, CP ####[facility] [address] [place], [place] [phone] Director: Fabien Dunne MD [facility] Albumin [Mass/Vol] 4.4 g/dL 3.5 - 5.2 g/dL [facility] Albumin/Globulin [Mass ratio] 1.5 {ratio} 1.0 - 2.5 [facility] ALP (Bld) [Catalytic activity/Vol] 72 U/L 35 - 104 U/L [facility] ALT [Catalytic activity/Vol] 21 U/L 5 - 33 U/L [facility] Anion gap [Moles/Vol] 13 mmol/L 9 - 17 mmol/L [facility] AST [Catalytic activity/Vol] 17 U/L NINF - 32 U/L [facility] Bilirubin [Mass/Vol] 0.3 mg/dL 0.3 - 1 .2 mg/dL [facility] Calcium [Mass/Vol] 9.6 mg/dL 8.6 - 10. 4 mg/dL [facility] Chloride [Moles/Vol] 102 mmol/L 98 - 10 7 mmol/L [facility] CO2 [Moles/Vol] 22 mmol/L 20 - 31 mmol/L [facility] Creatinine [Mass/Vol] 0.72 mg/dL 0.50 - 0.90 mg/dL [facility] GFR/1.73 sq M.predicted MDRD (S/P/Bld) [Vol rate/Area] - PINF [facility] Comment on above: Effective Feb 20, 2022 [...] 109 mg/dL High 70 - 99 mg/dL [facility] Interpretation and review of laboratory results Abnormal [facility] Potassium [Moles/Vol] 4.0 mmol/L 3.7 - 5.3 mmol/L [facility] Protein [Mass/Vol] 7.3 g/dL 6.4 - 8.3 g/dL [facility] Sodium [Moles/Vol] 137 mmol/L 135 - 144 mmol/L [facility] Urea nitrogen (BldV) [Mass/Vol] 8 mg/dL 6 - 20 mg/dL [facility] CT CERVICAL SPINE WO CONTRAS Ton 03-14-2022 [...] Saroj Lopez MD 03/14/22 Final result Normal [facility] CT HEAD WO CONTRASTon 2021 CT HEAD [...] Saroj Lopez MD 03/14/22 Final result Normal [facility] Comp Metabolic Profon 2021 Albumin [Mass/Vol] 4.4 g/dL Normal 3.5-5.2 [facility] Comment on above: Performed By: #### L IP, HCG, TROPI, CDP, CP ####[facility] [address] [place] [address] Lab Director: Fabien Dunne MD Albumin/Glob Ratio 1.5 Normal 1.0-2.5 [facility] Comment on above: Performed By: #### L IP, HCG, TROPI, CDP, CP ####[facility] [address] [place], [place] [phone] Lab Director: Fabien Dunne MD Alkaline Phos 72 U/L Normal 35-104 [facility] Comment on above: Performed By: #### L IP, HCG, TROPI, CDP, CP ####[facility] [address] [place] [address] Lab Director: Fabien Dunne MD ALT [Catalytic activity/Vol] 21 U/L Normal 5-33 [facility] Comment on above: Performed By: #### L IP, HCG, TROPI, CDP, CP ####[facility] [address] [place], [place] [phone] Director: Fabien Dunne MD Anion gap [Moles/Vol] 13 mmol/L Normal 9-17 [facility] Comment on above: Performed By: #### L IP, HCG, TROPI, CDP, CP ####[address] [address] Lab Director: Fabien Dunne MD AST [Catalytic activity/Vol] 17 U/L Normal <32 [facility] Comment on above: Performed By: #### L IP, HCG, TROPI, CDP, CP ####[address] [address] Lab Director: Fabien Dunne MD Bilirubin [Mass/Vol] 0.3 mg/dL Normal 0.3-1.2 [facility] Comment on above: Performed By: #### L IP, HCG, TROPI, CDP, CP ####[facility] [address] [place], [place] [phone] Director: Fabien Dunne MD Calcium [Mass/Vol] 9.6 mg/dL Normal 8.6-10.4 [facility] Comment on above: Performed By: #### L IP, HCG, TROPI, CDP, CP ####[facility] [address] [place], [place] [phone] Director: Fabien Dunne MD Chloride [Moles/Vol] 102 mmol/L Normal 98-107 [facility] Comment on above: Performed By: #### L IP, HCG, TROPI, CDP, CP ####[facility] [address] [place] [address] Lab Director: Fabien Dunne MD CO2 [Moles/Vol] 22 mmol/L Normal 20-31 [facility] Comment on above: Performed By: #### L IP, HCG, TROPI, CDP, CP ####[facility] [address] [place] [phone])[phone] Director: Fabien Dunne MD Creatinine [Mass/Vol] 0.72 mg/dL Normal 0.50-0.90 [facility] Comment on above: Performed By: #### L IP, HCG, TROPI, CDP, CP ####[address] [address])[phone] Director: Fabien Dunne MD GFR/1.73 sq M.predicted among non-blacks MDRD (S/P/Bld) [Vol rate/Area] mL/min/{1.73_m2} Normal >60 [facility] Comment on above: Result Comment: Effective Feb [...] #### L IP, HCG, TROPI, CDP, CP ####[facility] [address] [place] [address])[phone] Director: Fabien Dunne MD Glucose [Mass/Vol] 109 mg/dL High 70-99 [facility] Comment on above: Performed By: #### L IP, HCG, TROPI, CDP, CP ####[facility] [address] [place] [address] Lab Director: Fabien Dunne MD Potassium [Moles/Vol] 4.0 mmol/L Normal 3.7-5.3 [facility] Comment on above: Performed By: #### L IP, HCG, TROPI, CDP, CP ####[facility] [address] [place] [address] Lab Director: Fabien Dunne MD Protein [Mass/Vol] 7.3 g/dL Normal 6.4-8.3 [facility] Comment on above: Performed By: #### L IP, HCG, TROPI, CDP, CP ####[facility] [address] [place] [address] Lab Director: Fabien Dunne MD Sodium [Moles/Vol] 137 mmol/L Normal 135-144 [facility] Comment on above: Performed By: #### L IP, HCG, TROPI, CDP, CP ####[facility] [address] [place] [address] Lab Director: Fabien Dunne MD Urea nitrogen [Mass/Vol] 8 mg/dL Normal 6-20 [facility] Comment on above: Performed By: #### L IP, HCG, TROPI, CDP, CP ####[facility] [address] [place] [address] Lab Director: Fabien Dunne MD HCG Qualitative, Serumon hCG Qual Negative NEGATIVE [facility] Comment on above: Specimens with hCG l evels near the threshold of the test (25 mIU/mL) may give a negative or indeterminate result. In such cases, another test should be performed with a new specimen in 48-72 hours. If early is suspected clinically in this setting, correlation with quantitative serum b-hCG level is suggested. [employer] has confirmed the use of plasma for this test. This has not been cleared or approved by the U.S. Food and Drug Administration. The FDA has determined that such clearance is not necessary. [facility] H[facility], Bloodon 03-14-20 HCG Screen, Blood Negative Normal NEG [facility] Comment on above: Result Comment: Spec imens with hCG levels near the threshold of the test (25 mIU/mL) may give a negative or indeterminate result. In such cases, another test should be performed with a new specimen in 48-72 hours. If early is suspected clinically in this setting, correlation with quantitative serum b-hCG level is suggested. [employer] has confirmed the use of plasma for this test. This has not been cleared or approved by the U.S. Food and Drug Administration. The FDA has determined that such clearance is not necessary. Performed By: #### L IP, HCG, TROPI, CDP, CP #### [employer] [address] [place], [place] [phone] Brand Mgr: Fabien Dunne MD Lipaseon 03-14-2022 Lipase [Catalytic activity/Vol] 52 U/L Normal 13-60 [facility] Comment on above: Performed By: #### L IP, HCG, TROPI, CDP, CP ####[employer] [address] [place], [place] [phone] Lab Director: Fabien Dunne MD Lipase [Catalytic activity/Vol] 52 U/L 13 - 60 U/L [facility] Microscopic Urinalysison Casts UA 2 TO 5 HYALINE Refer ence range defined for non-centrifuged specimen. [facility] Epithelial Cells UA 5 TO 10 [facility] RBC, UA None [facility] Comment on above: Reference range defi barbara for non-centrifuged specimen. WBC, UA 0 TO 2 [facility] No Panel Informationon 03-14 CT HEAD: No CT evidence for acute intracranial abnormality.. CT CERVICAL SPINE: No acute fracture or subluxation of the cervical spine. [facility] EXAMINATION: CT OF THE HEAD [...] There is no prevertebral soft tissue swelling. [facility] Saroj Lopez MD - 03/14/2022 [...] fracture or subluxation of the cervical spine. [facility]ENTER[facility] Work Phone: [facility] [employer] Radiology Study observation (narrative) [facility] [employer] Work Phone: No Panel InformationOrdered By: Saroj Lopez on 03-14-2022 [facility]ENTER[facility]set[facility] [employer] Work Phone: Troponinon 03-14-2022 Troponin, High Sens <6 Normal 0-14 [facility] Comment on above: Result Comment: High Sensitivity Troponin values cannot be compared with other Troponin methodologies. Patients with high levels of Biotin oral intake (i.e >5mg/day) may have falsely decreased Troponin levels. Samples collected within 8 hours of biotin intake may require additional information for diagnosis. Performed By: #### L IP, HCG, TROPI, CDP, CP #### [employer] [address] [place] [address] Brand Mgr: Fabien Dunne MD Troponin, High Sensitivity ng/L 0 - 14 ng/L [facility] Comment on above: High Sensitivity Troponin values cannot be compared with other Troponin methodologies. Patients with high levels of Biotin oral intake (i.e >5mg/day) may have falsely decreased Troponin levels. Samples collected within 8 hours of biotin intake may require additional information for diagnosis. [facility] Distractify Urinalysison 03-14-2022 Bilirubin Urine Negative NEGATIVE [facility] Sport Universal Process Color, UA Yellow Yellow [facility] Glucose, Ur Negative NEGATIVE [facility] Interpretation and review of laboratory results Abnormal [facility] Ketones Ql (U) Negative NEGATIVE [facility] Leukocyte esterase Test strip Ql (U) MODERATE Abnormal NEGATIVE [facility] Nitrite, Urine Negative NEGATIVE [facility] pH, UA High 5.0 - 8.0 [facility] Protein, UA Negative NEGATIVE [facility] Specific [place], UA 1.016 1.005 - 1.030 [facility] Turbidity UA Clear Clear [facility] Urine Hgb Negative NEGATIVE [facility] Urobilinogen, Urine Normal Normal [facility] Urinalysis, Routineon 2021 Bilirubin, SemiQt,Ur Negative Normal NEG [facility] Comment on above: Performed By: #### U MICAO, UA #### [employer] [address] [place] [address] [phone] Brand Mgr: Fabien Dunne MD Blood, Urine Negative Normal NEG [facility] Comment on above: Performed By: #### U MICAO, UA #### [employer] [address] [place] [address] [phone] Brand Mgr: Fabien Dunne MD Clarity (U) Clear Normal CLEAR [facility] Comment on above: Performed By: #### U MICAO, UA #### [employer] [address] [place] [phone] Brand Mgr: Fabien Dunne MD Color (U) Yellow Normal YEL [facility] Comment on above: Performed By: #### U MICAO, UA #### [employer] [address] [place] [address] [phone] Brand Mgr: Fabien Dunne MD Glucose Ql (U) Negative Normal NEG [facility] Comment on above: Performed By: #### U MICAO, UA #### [employer] [address] [place] [address] [phone] Brand Mgr: Fabien Dunne MD Ketones Ql (U) Negative Normal NEG [facility] Comment on above: Performed By: #### U MICAO, UA #### [facility] [address] [address] Brand Mgr: Fabien Dunne MD Leukocyte esterase Test strip Ql (U) MODERATE Abnormal NEG [facility] Comment on above: Performed By: #### U MICAO, UA #### [facility] [address] [place] [phone] Brand Mgr: Fabien Dunne MD Nitrite,Ur Negative Normal NEG [facility] Comment on above: Performed By: #### U MICAO, UA #### [facility] [employer] [address] [place] [phone] Brand Mgr: Fabien Dunne MD PH,Ur >9.0 High 5.0-8.0 [facility] Comment on above: Performed By: #### U MICAO, UA #### [address] [address] Brand Mgr: Fabien Dunne MD Protein Ql (U) Negative Normal NEG [facility] Comment on above: Performed By: #### U MICAO, UA #### [address] [address] Brand Mgr: Fabien Dunne MD Spec. Philo,Ur 1.016 Normal 1.005-1.03 0 [facility] Comment on above: Performed By: #### U MICAO, UA #### [address] [address] Brand Mgr: Fabien Dunne MD Urobilinogen,Ur Normal Normal NORM [facility] Comment on above: Performed By: #### U MICAO, UA #### [address] [address] Brand Mgr: Fabien Dunne MD Urinalysis,Microon 2 Casts 2 TO 5 HYALINE Normal 0-8 [facility] Comment on above: Result Comment: Refe rence range defined for non-centrifuged specimen. Performed By: #### U MICAO, UA #### [address] [address] Brand Mgr: Fabien Dunne MD Epithelial cells LM Ql (Urine sed) 5 TO 10 Normal 0-5 [facility] Comment on above: Performed By: #### U MICAO, UA #### [address] [address] Brand Mgr: Fabien Dunne MD Urine RBC's None Normal 0-4 [facility] Comment on above: Result Comment: Refe rence range defined for non-centrifuged specimen. Performed By: #### U MICAO, UA #### [facility] [employer] [address] [place] [address] Brand Mgr: Fabien Dunne MD Urine WBC's 0 TO 2 Normal 0-5 [facility] Comment on above: Performed By: #### U MICAO, UA #### [address] [address] Brand Mgr: Fabien Dunne MD XR CHEST (2 VW)on 03-14-2022 XR CHEST (2 VW) EXAMINATION: TWO XRAY VIEWS OF THE CHEST 03/14/2022 10:26 am COMPARISON: None. HISTORY: ORDERING SYSTEM PROVIDED HISTORY: shortness of breath TECHNOLOGIST PROVIDED HISTORY: shortness of breath 31-year-old female with shortness of breath FINDINGS: exercise physiologist leads overlie the chest. Trachea midline. No pneumothorax. No free air. No acute focal airspace consolidation or pleural effusions. Cardiac and mediastinal contours within normal limits. No acute osseous abnormality identified. Prior cholecystectomy. IMPRESSION: No acute focal airspace consolidation. Interpreted by: Jose Daniel Yost MD Signed by: Jose Daniel Yost MD 03/14/22 Final result Normal [facility] No acute focal airsp terra consolidation. [facility] RIS [facility]SOL[facility] EXAMINATION: TWO XRAY VIEWS OF THE CHEST 03/14/2022 10:26 am COMPARISON: None. HISTORY: ORDERING SYSTEM PROVIDED HISTORY: shortness of breath TECHNOLOGIST PROVIDED HISTORY: shortness of breath 31-year-old female with shortness of breath FINDINGS: exercise physiologist leads overlie the chest. Trachea midline. No pneumothorax. No free air. No acute focal airspace consolidation or pleural effusions. Cardiac and mediastinal contours within normal limits. No acute osseous abnormality identified. Prior cholecystectomy. [facility] Jose Daniel Yost MD - 03/14/2022 EXAMINATION: TWO XRAY VIEWS OF THE CHEST 03/14/2022 10:26 am COMPARISON: None. HISTORY: ORDERING SYSTEM PROVIDED HISTORY: shortness of breath TECHNOLOGIST PROVIDED HISTORY: shortness of breath 31-year-old female with shortness of breath FINDINGS: exercise physiologist leads overlie the chest. Trachea midline. No pneumothorax. No free air. No acute focal airspace consolidation or pleural effusions. Cardiac and mediastinal contours within normal limits. No acute osseous abnormality identified. Prior cholecystectomy. IMPRESSION: No acute focal airspace consolidation. [employer] Phone: Radiology Study observation (narrative) [employer] Phone: XR CHEST (2 VW)Ordered By: Rocío Yost on 03-14-2022 [employer] Phone: XR ANKLE LEFT (MIN 3 VIEWS)o [...] Daniel Yost MD 03/05/22 Final result Normal [facility] XR FOOT LEFT (MIN 3 VIEWS)on 03-05-2022 [...] Daniel Yost MD 03/05/22 Final result Normal [facility] XR KNEE LEFT (MIN 4 VIEWS)on 03-05-2022 [...] Daniel Yost MD 03/05/22 Final result Normal [facility] Intra[employer] Documentson 1 [employer] Documents [id number]:127 Normal [facility] Lab Reportson 02-16-2022 Lab Reports [id number]#[id number]:127 Normal [facility] CBC AUTO DIFFon 01-14-2022 BASO # 0.1 103/ul Normal 0.0-0.1 [facility] Comment on above: Performed By: #### C BC #### [facility] [address] [place] [address] Dr. Shawn Cosme Basophils/100 WBC (Bld) 0.5 % Normal 0.2-2.0 [facility] Comment on above: Performed By: #### C BC #### [facility] [address] [place] [address] Dr. Shawn Cosme EO # 0.4 103/ul Normal 0.0-0.7 [facility] Comment on above: Performed By: #### C BC #### [facility] [address] [place] [address] Dr. Shawn Cosme Eosinophils/100 WBC (Bld) 4.0 % Normal 0.9-7.0 [facility] Comment on above: Performed By: #### C BC #### [facility] [address] [place] [address] Dr. Shawn Cosme Erythrocyte distribution width (RBC) [Ratio] 14.4 % Normal 11.0-15.0 [facility] Comment on above: Performed By: #### C BC #### [facility] [address] [place] [address] Dr. Shawn Cosme Hematocrit (Bld) [Volume fraction] 40.2 % Normal 36.0-48.0 [facility] Comment on above: Performed By: #### C BC #### [facility] [address] [place] [address] Dr. Shawn Cosme Hemoglobin (Bld) [Mass/Vol] 13.2 g/dL Normal 12.0-16.0 [facility] Comment on above: Performed By: #### C BC #### [facility] [address] [place] [address] Dr. Shawn Cosme IG # 0.04 10e3/ul Critically high 0.00-0.03 [facility] Comment on above: Performed By: #### C BC #### [facility] [address] [place] [address] Dr. Shawn Cosme IG % 0.4 % Normal 0.0-0.5 [facility] Comment on above: Performed By: #### C BC #### [facility] [address] [place] [address] Dr. Shawn Cosme LYMPH # 2.0 103/ul Normal 1.2-3.8 [facility] Comment on above: Performed By: #### C BC #### [facility] [address] [place] [address] Dr. Shawn Cosme Lymphocytes/100 WBC (Bld) 17.9 % Critically low 20.5-60.0 [facility] Comment on above: Performed By: #### C BC #### [facility] [address] [place] [address] Dr. Shawn Cosme MANUAL DIFF REQ NO Normal [facility] Comment on above: Performed By: #### C BC #### [facility] [address] [address] [address] Shawn Cosme MCH (RBC) [Entitic mass] 29.1 pg Normal 26.7-34.0 [facility] Comment on above: Performed By: #### C BC #### [facility] [address] [place] [address] Dr. Shawn Cosme MCHC (RBC) [Mass/Vol] 32.8 g/dL Normal 29.9-35.2 [facility] Comment on above: Performed By: #### C BC #### [facility] [address] [place] [address] Dr. Shawn Cosme MCV (RBC) [Entitic vol] 88.7 fL Normal 81.0-99.0 [facility] Comment on above: Performed By: #### C BC #### [facility] [address] [place] [address] Dr. Shawn Cosme MONO # 0.8 103/ul Normal 0.3-0.8 [facility] Comment on above: Performed By: #### C BC #### [facility] [address] [place] [address] Dr. Shawn Cosme Monocytes/100 WBC (Bld) 6.9 % Normal 1.7-12.0 [facility] Comment on above: Performed By: #### C BC #### [facility] [address] [place] [address] Dr. Shawn Cosme NEUT # 7.8 103/ul Critically high 1.4-6.5 [facility] Comment on above: Performed By: #### C BC #### [facility] [address] [place] [address] Dr. Shawn Cosme Neutrophils/100 WBC (Bld) 70.3 % Normal 43.0-75.0 [facility] Comment on above: Performed By: #### C BC #### [facility] [address] [place] [address] Dr. Shawn Cosme Platelet mean volume (Bld) [Entitic vol] 9.3 fL Critically low 9.5-13.5 [facility] Comment on above: Performed By: #### C BC #### [facility] [address] [place] [address] Dr. Shawn Cosme PLT 310 103/ul Normal 150-450 [facility] Comment on above: Performed By: #### C BC #### [facility] [address] [place] [address] Dr. Shawn Cosme RBC 4.53 106/ul Normal 4.20-5.40 [facility] [facility] Comment on above: Performed By: #### C BC #### [facility] [address] [place] [address] Dr. Shawn Cosme WBC 11.1 103/ul Critically high 4.0-11.0 [facility] Comment on above: Performed By: #### C BC #### [facility] [address] [place] [address] Dr. Shawn Cosme PROF CHEM 8 (BAS METB)on Anion gap [Moles/Vol] 13.8 mmol/L Normal [facility] Comment on above: Performed By: #### H ANUEL, BMP #### [facility] [address] [place] [address] Dr. Shawn Cosme Calcium [Mass/Vol] 9.2 mg/dL Normal 8.5-10.1 [facility] Comment on above: Performed By: #### H ANUEL, BMP #### [facility] [address] [place] [address] Dr. Shawn Cosme Chloride [Moles/Vol] 100 mmol/L Normal 98-107 [facility] Comment on above: Performed By: #### H ELLAPN, BMP #### [facility] [address] [place] [address] Dr. Shawn Cosme CO2 [Moles/Vol] 27.1 mmol/L Normal 21.0-32.[address] [facility] Comment on above: Performed By: #### H ELLAPN, BMP #### [facility] [address] [place] [address] Dr. Shawn Cosme Creatinine [Mass/Vol] 0.96 mg/dL Normal 0.55-1.02 [facility] Comment on above: Performed By: #### H ELLAPN, BMP #### [facility] [address] [address] [address] Shawn Cosme EGFR-AF [facility] HEL[facility]IAN >60 Normal >=60 [facility] Comment on above: Performed By: #### H STROPN, BMP #### [facility] [address] [address] [address] Shawn Cosme EGFR-NON AF [facility] >60 Normal >=60 [facility] Comment on above: Performed By: #### H STROPN, BMP #### [facility] [address] [address] [address] Shawn Cosme Glucose [Mass/Vol] 110 mg/dL Critically high 74-[address] [facility] Comment on above: Performed By: #### H STROPN, BMP #### [facility] [address] [address] [address] Shawn Cosme Potassium [Moles/Vol] 3.2 mmol/L Critically low 3.5-5.1 [facility] Comment on above: Performed By: #### H STROPN, BMP #### [facility] [address] [address] [address] Shawn Cosme Sodium [Moles/Vol] 138 mmol/L Normal 136-145 [facility] Comment on above: Performed By: #### H STROPN, BMP #### [facility] [address] [address] [address] Shawn Cosme Urea nitrogen [Mass/Vol] 8.0 mg/dL Normal 7.0-18.0 [facility] Comment on above: Performed By: #### H STROPN, BMP #### [facility] [address] [address] [address] Shawn Cosme Urea nitrogen/Creatinine [Mass ratio] 8.3 mg/mg Normal [facility] Comment on above: Performed By: #### H STROPN, BMP #### [facility] [address] [address] [address] Shawn Cosme TROPONIN, HIGH SENSITIVITYon 01-14-2022 HSTROP 2.7 pg/mL Critically low 4.0-51.3 [facility] Comment on above: Result Comment: CUT- OFF POINTS HAVE BEEN ESTABLISHED BASED ON THE FOURTH UNIVERSAL DEFINITIONS OF MYOCARDIAL INFARCTION. THE UPPER REFERENCE LIMIT (URL) OF TROPONIN, DEFINED THE 99TH PERCENTILE OF cTnI DISTRIBUTION IN A REFERENCE POPULATION, HAS BEEN CONFIRMED THE DECISION THRESHOLD FOR [place] DIAGNOSIS. Performed By: #### H ANUEL, [facility] #### [facility] [address] [address] [address] Shawn Cosme XR CHEST 1 Von [...] by: YANETH YARBROUGH Date: 2022-01-14 15:09 Normal [facility] A1C HEMOGLOBINon 12-06-2021 HbA1c (Bld) [Mass fraction] 6.0 % [facility]co Other HbA1c (Bld) [Mass fraction]o n 12-06-2021 A1C HEMOGLOBIN [facility] Other MRI Knee w/o Lefton 11-03-19 MRI [...] by Saroj Vee on 11/02/2021 1310 Normal [facility] Sales Agent Coding Summary.on 10-12-2021 Coding Summary. CD:[id number] Gh0bWw+ PGhlYWQ+KX8KUNYxX36spYXdfU0 TW9zRLE0ZNOSYQSVDPL2UYY4rrA V8URiaO6JxdpQa FgaopYTtTZ13SPc8YDT1yMooKPc iaS2kbJSuU8l4BcAzLG90dC41PB xyIBAdKmB8PjXfaocwoFOj O9oyDaHhfOHhPqt+PHRhYmxlIHd pAIZaIGihRLTpEcGqdIenVV1kYh 9yZGVyLWNvbGxhcHNlOiBj f5pzPDHkEUadOI3scNnuZ8PdjXY 3MUZch1i2Mi77iTU+RIGgSXL7tJ ljBIukg098FaNeq6faISD6 lASrYJhaYQU8O61vz0N0SOObUCA rGGR7fAB9oR6nkZprzvoaT2AseZ DuUtH1WYA3nNQzqQ0umUxi lietnZ2hUte+P73JKD1VRDVRSO4 JIww2Q2EbPyyvwEC+QW49VPBeHN 78oDWmhVJtp9uabKm1RqNb BSGrAKK9tAtePHgui4JbBCIcQ13 czHHit1W3GSXmzOhucNIiAlUodR T9oV2lHPeshqrht1fadvql Onujo4tkac87cU23I28qMXtlQMT cHNY8MHFzCQGywBbrar0dxK2gGv 8+NYebk7bsm6kowKc7CvYe GUYpijYbhAxnCBJ1w2RhHy18Q6H wePoua3GrQrj6rt35bEVzd6R5jD N2UMgmMYYhrR8dZDciAcC2 AYOlPbZslW73wXNuFVlvLq9piXp nuFnqNB4vXHKvkxakBNIjyB3aON XxtSJggIcaMJ4oHEKvqwvn n877SvSqGGX5MGKflWUgA4EmyH3 vBbCdDJOfSHOoJ6WodAXcYUkyF6 89GFqhXxA8AHKgwmDzZ9Pg QHXtpSgwDuK7r3F0Yu2Kh2Jxvov mQZV6WFwrUOT5DaE4EaDqBdD9U2 FjIcp5CUQbfQiyUL9aB8Rx ENGqakhxycpfnTJ0QDVaTYZuwF4 5dWXnABdhUv9zj7C9d494FHLhIL ZxmD03Rp4hoBkvDBTcjEJG yE4mcvjhj8hoqcdeCxEbQUVvWSq 6TDj4YDZbdEomXjBlKRA9DkG0NA H3wGQmbZ5xpJkrtiwhoO6w Oyc+S15dkU9oOFP6MLM6kddpCSA jvjMnFZ77AP85V1FjLeqdtHAzbA U+WDGcadCvdPzdIT8dVeXw o8qdd6XiFUwhV6LlSDNvVQjnLio 8WTUyWVN0gAS5lN6cTMFlREqvn6 B4hQW0K4ZxoqJkmn2pf7wl NEHxWAszL72uwXTzx9U8EQCraYC 2CBUpjBseHuJgkI96Pyp+PGNvbG miv9YpGlicr6tsr3lpwDp5 FcAuCTYgcdLyxUgcPVY2t7KmCm9 9A48bPYikMYVtQJXpQKDaSPHsdQ rfgc1gmY0yOh1+PGNvbCB3 lQU4nQ8iCINcAhT9PDfkV907AoW cpXHvCwtts6sdy2wpxOh5AhBdDU MiomBcxWjxQNM5x7NlLf80 Z38uUGntECXsPAQrMSKiNWFgjDy ztu1suA5fEh3+UE1bd9fdjb84tK 48dHI+AQPbIVI8mQclGHbs TJNkeC9dVPnkPaH4MHMzMyVluI4 4iXEeGOyoAc4kwDkzrTjbUQ1nXR Mrntuuk799VwXzy5mrTBOg iJHkRPjqPQR0H26od9L9ZKVgOZW vSOI7wVE8fS1ynPsrpdiaiRLheE zyjvGnlTwxRKudATmuY803 IHRvcDsnPlBhdGllbnQgTmFtZTo 6L8YxUlm3GFLldDiiUJ0uhTPqJH biTz0dwRmsbHvkSS5gPYLt qtwpc955BqJze5euJUPqcKZxJSv zZDJ1H59px3P5BHIzQUCqRAK5tO F0tU5paPyetzrdpVXgwUbe yxOofDtrJImcBIjpG717CVUchXp eOdGiogJeAEEsuXJ2UC10FD30hP Coa2W0dJP9F4DnRHLsayqt ojuldHI6ERMhPLGklC30Xt9wbEa mWd1qHDTyRQO9RVSpuMGjL1QueZ 3jDtYkIKOvQNPvB4ZknECu RSnlW424JXxyVaN2LQZbftCgB6Z zZFTmrGouGoR0i8Y3At0UL3G0DY 31EK82nZAph4H8aVG9W5Tz YPCacokgqtqfqFA0GBNhPNJypB3 6Fs1xaFetBt5kIITeXKY6OQGzzR YvL2SkpS7bMoIhMIPzYNQp Y4VwrHDmIVamP585IZagRbC2WLP mwgWrX5FgMFDptVyxVuB5i2N8Ht 9GURi2VH49YA58mPEkz1G4 qSY9J7JuUOQendtovogefYJ1UWT xAKVevH37Vx7otBdhZl1iRRQtJY B3IFMblUJiH6BkjH8cOiQw ABRyTZIvV1ChmINbOXoeV570KBl eUyZ9BYIdxoDyY2ThRWGwwJofMz A1v0P9Lk2HSKXvXS10LGS7 fZD6SB84ZV37G9CkYkqvsRBndPB +PHRhYmxlIHdpZHRoPScxMDAlJy LxaMyxYK5pZz6mDJYcBAKj jFlueKMkRfQdt1rzUVQbXNadJE1 gnWqyI2BfrMA0CYEnp4o3Qx30G5 0nN7GvhUS+XPKymRA9sWB3 wT8fApIwWsR5ZIvwL654WxJilIE lJkpxa1fcr0tmgYq2JvH7RVQdmy VcuIreHQM5h6KdAm67G54t IHdpZHRoPSIxNSUiIHZhbGlnbj0 joP9wGf8+EUVtbND6fMR0hD7tAr ZnKbJ9HUztX417SoSncNQc Vrmuq8iud6kplYq4EjZkFXXbhyF cyYpzZSE6o6BcOt97E4HckWimm8 ToEfb9pj54eZZfi4S6aXL5 V1KtADGlcdmykFMvtSopYG6nIJZ zsfttIQYdnY0hCZBpG9x3NgGeCx T1AJdfB7OikwK9SBUprBMb BHcdLGM7G05ks9O7XKRoARJsGMH 4lJP5eQ1uyPditedouOLxbWgelc PjkGrqZVcwXUqaX681YLSn qHtzLIGcpY6xCKHqrWXroOllOE8 pWSYbsuanCvLUCt6TIHDmAWwXVG 9ODAO8O9ZlQgc2PSXvqFsg PL1phHBuSCxeFa6jqCjegDnnKI8 nCWVdvzqfOWGnlF2wTZSobNGmlR myZP2nNPHpjdybd463RxUc NPZ2RQHmpBFiS1NjuU4uHyRhFRI iMASoW8RruWIeGUpjZ351DHhePr V0OUSumfRmF1XqRXUhfHnl VbG8x1O2Kt3qAq3aCh7fZXg1YJ7 7AF65aBOmm4W6sKQ1Y9VyGQUtam lfsyfukSD4ANBaPXSkeT29 dCXcMEbvPh6ns2V4l341GDKbFLN okK36Oy5ogVnzDULdeGYLfD7rkn emc1yoirzrDgGdFJJcYPc7 KHv2RUYpbIgeOsTbVFH5ZkT6FTS 0aRXzdH0ykMuqcvfooT8zQtj+Mz AmKYPlurO9R7ZfOeq4PRYy lEgpUS0ouHHaACznFw3gnTfzaXs iIM8jVDTocyclHAKrnP9vNHJmiJ SlyFgxRU5wYYYlzguzz918 HrUhGET7CILlpWTgQ6PfuL7iGtB dKWPgEWVnB4UfhHLrBYeuT549OB leXrL3YZXuiwKwE5CrPQKe xSnaAkE0k5A0Wv7NPM2reNU3P8X qFzp6IBVnnEdnDX4ktIEcRDilVo 4okEhydFeiSD7uKGYyijtq TSLwiY4tWNMiwBLclYyjKT2lPBF svsuod236IfXoXUC7PQHnmUBwF0 HthR8oBdAzEXSlJFCuP7St gHVwDIfhO288CUinFcY6DZCpsgZ oL0NwBJAiyGqyQbM7f2A4Ou7VuA UtCRJxNH37WH64BG99E7Zb PjwvdGFibGU+PHRhYmxlIHdpZHR mCAyxFWSuElYxoZajFK9oWy1wHQ YjXIYhaHcxkZOtLyQpq6mk GFNuKZvrDF3vjJadM1HhhRR2HDD gz5c2Fi27S87lB9QbkZE+PGNvbC B2qDQ4cX3fDjIxDmP9WWna M615JwIudACxRpant1dyr9bbeDg 1SkGhXSPtcgXhcUqdTML3y5KqYo 91S01xFZvfGIMxBZAfRIUw KODfiMyiai2ijX8aEo5+PGNvbCB 7pBT8mD8oFhYtSiI2RGrtC033Cc ItiKIuJvkjV51yK2CxeNO+ VNGaRtj8ZXJxxGhfXX8rnVZiKCf bCi5cMAG3NdUyCoHpBVatA3UlML YsaisergpfaOT7JYGhNUQd mV44Zj3yvMjdBa7eWSVoVQB2LBB mzCUkD2BygI5tUzViDIBmBYVaJ1 FqpRZhILsfQ765ZXmaBiR1 ZUZbvkRyS1XfGCBrjTfuDqD5n8W 9Gq9PvWfrjNRuQA6pQhQxQLt5Q2 BrPfp5FKXrfOycIK2xlRWu RPhcPi9cdBaxpCwbKR6cIAFjjqn de005XdGze8eoMQOcdNWwAXdzSQ M1Q51tf4E3FFVwNZGsZGY9 nQV8uG7zfNasrxweyFXnbRixwmQ tuLifEIqhGEgzQ087MKRmdOhwQu TVPrr5G0HgDbf3UPGisNii NW5blELaAXuqFh4ntIvrgZhnDE9 uZSFbigumf896MtEjd2hhWUKacE VoSXbbIPL8C18ml4B4FGYe QVTuYXS0iWP1vZ6uoOjojyvjcVM wkXfzbkBxfSfdXLcmDUvqC560FL ZfkWheJe1LEcl1V7OlQlu9 CRZzqIuiVJ6adYQlIZdjKt0aeOm dgZxrYA6pQPMpoulqg590HvLrb2 onQRTwgFVgHMkhLWV8Z19u a2U8PXBoZYPzAXH0bOJ3yE2fiSj nbjogbGVmdDsgdmVydGljYWwtYW aeD230NZCpoCekGgNndTZs OjwvdGQ+OU05vk56X7TrGqzdTep 3MMEiGXD7kKU3dE6tNILzPSavy7 U2lSD9I2MvzkOzpg0ws6qs YXBz (more content not included)... Normal [facility] Consent for Procedure/Surger yon 10-11-2021 Consent for Procedure/Surgery [id number]#1.00CD:127 [facility] Consent for Treatmenton 05-2 Consent for Treatment [id number]#1.00CD:127 Normal [facility] IntraOperative Documentson 0 10-11-2021 IntraOperative Documents [id number]#1.00CD:127 [facility] Main OR Intraoperative Recor don 10-11-2021 Main OR Intraoperative Record IntraOp Document Type FTURO Summary Primary Physician: Constantino HOWELL MD Finalized Date/Time: 10/11/21 11:27:40 Pt. Name: XIANG MAHONEY/Sex: 1990 Female Med Rec #: [id number] Physician: Constantino HOWELL MD Financial #: [id number] Pt. Type: O Room/Bed: / Admit/Disch: 10/11/21 09:59:55 - Institution: Case Times FTURO Entry 1 Patient Times In Room 10/11/21 11:12:00 Out Room 10/11/21 11:27:00 Procedure Times Start 10/11/21 11:20:00 Stop 10/11/21 11:25:00 Anesthesia Times Last Modified By: Carissa Harris RN 10/11/21 11:27:35 Case Attendance FTURO Entry 1 Entry 2 Entry 3 Case Attendee LYNDA CAMEJO, Constantino Luna LIE DETECTOR OPERATOR, Carissa Harris RN, Carissa Chu Role Performed Surgeon - Primary Scrub - Primary Ergonomist - Primary Time In 10/11/21 11:12:00 10/11/21 [...] By: Carissa Harris RN 10/11/21 11:27 Normal [facility] Main OR Preoperative Recordo n 10-11-2021 Main OR Preoperative Record Holding Area Document Type FTURO Summary Primary Physician: Constantino HOWELL MD Finalized Date/Time: 10/11/21 10:25:28 Pt. Name: XIANG MAHONEY/Sex: 1990 Female Med Rec #: [id number] Physician: Constantino HOWELL MD Financial #: [id number] Pt. Type: O Room/Bed: / Admit/Disch: 10/11/21 [...] 10:25 Ramesh West LPN 10/11/21 10:25 Normal [facility] Operative Reporton Operative Report Patient: SANGITA [...] urine. The Urethra was dilated to: 30 Bahamian w/ sounds. Devices Implanted: None. Removal: Cystoscope is removed, The patient tolerated it well. Postoperative Information Discharge: Patient is discharged home with antibiotic coverage, Follow up arranged. Normal [facility] Comment on above: Result Comment: Elec tronically Signed By: LYNDA CAMEJO, Constantino Cook.jelena\Date and Time Signed: 10/11/21 11:30 EDT Lab Reportson 05-09-2021 Lab Reports [id number]#1.00CD:127 Normal [facility] RAD - CT Reporton 05-09-2021 RAD - CT Report [id number]#1.00CD:127 Normal [facility] CREATININEon 05-06-2021 Creatinine [Mass/Vol] 0.89 mg/dL Normal 0.52-1.04 [facility] Comment on above: Performed By: #### C AIDEE #### [facility] [address] [place] [address] Dr. Shawn Cosme EGFR-AF [facility] HELENIAN >60 Normal >=[address] [facility] Comment on above: Performed By: #### C AIDEE #### [facility] [address] [address] [address] Shawn Cosme EGFR-NON AF [facility] HEL[facility] >60 Normal >=60 [facility] Comment on above: Performed By: #### C AIDEE #### [facility] [address] [place] [address] ABD/PELV W CONon [...] by: MARILIA STUART Date: 2021-05-06 13:55 Normal [facility] Reminderson 05-04-2021 Reminders - From: Maricruz Werner To: EU - Clinical; Sent: 04/20/2021 13:15:28 EST Show up: 05/04/2021 13:15:00 EST Subject: cytology Reminder/Recall Cytology sent to [facility] negative results Normal [facility] Pathology Noteon 04-24-2021 Pathology Note [id number]#1.00CD:127 Normal [facility] RAD - MISCon 04-21-2021 RAD - MISC [id number]#1.00CD:127 Normal [facility] Ambulatory Clinical Summaryo n 04-20-2021 Ambulatory Clinical Summary {[id number]}CD:61 4368 Normal [facility] Ambulatory Clinical Summary {[id number]}CD:61 4368 Normal [facility] Patient Educationon 04-20-20 Patient Education Urology [...] these instructions at home: Medicines ? Take gmtg-ipc-wlbpxze and prescription medicines only as told by [...] the blood stops without treatment. ? Take tuld-ubk-szatxua and prescription medicines only as told by [...] Reviewed: 06/09/2017 Elsevier Patient Education ? 2019 [employer] [facility] Physician Orderon 04-20-2021 Physician Order [id number]#1.00CD:127 [facility] Reminderson 04-20-2021 Reminders - From: Michelle Andrew To: EU - Clinical; Sent: 04/20/2021 13:22:11 EST Show up: 05/09/2021 13:22:00 EST Subject: ct scan Due Date/Time: 05/18/2021 13:22:00 EST Reminder/Recall [facility] scan Abd/Pelvis w contrast, order faxed They will call pt to sched after auth approval Pt sched for Cysto/UD 05/31/21 Normal [facility] Urology Office/Clinic Noteon 04-20-2021 Urology Office/Clinic [...] any stones. Pt got KUB done at [facility] yesterday. Dysuria: denies Incomplete bladder emptying: [...] [facility] [address], [place] [address]- [phone] Additional Instructions: Patient Education Hematuria, Adult I, [...] q6hr, PRN (more content not included)... Normal [facility] Comment on above: Result Comment: Elec [...] MARILIA STUART Date: 2021-04-20 07:20 Normal [facility] URon 04-19-2021 , QUAL Negative Normal NEGATIVE [facility] Comment on above: Performed By: #### P REGU #### [facility] [address] [address] [address] Shawn Cosme XR lumbar spine 2-3V*on 03-22 XR lumbar spine 2-3V* [facility] pyco Other XR lumbar spine 2-3V* [facility] pyco Other XR lumbar spine 2-3V* [address] [place] [address] pyco Other XR lumbar spine 2-3V* [place] [address] pyco Other XR lumbar spine 2-3V* XRay Report pyco Other XR lumbar spine 2-3V* Signed pyco Other XR lumbar spine 2-3V* Patient: Xiang Mahoney MR#: [id number] pyco Other XR lumbar spine 2-3V* 636 pyco Other XR lumbar spine 2-3V* : 1990 Acct:[id number] pyco Other XR lumbar spine 2-3V* Age/Sex: 30 / F ADM Date: 04/13/21 pyco Other XR lumbar spine 2-3V* Loc: ICXD Room: Type: REG CLI pyco Other XR lumbar spine 2-3V* Attending Dr: Saroj Nguyen MD pyco Other XR lumbar spine 2-3V* Ordering Provider: Saroj Nguyen MD pyco Other XR lumbar spine 2-3V* Date of Service: 04/13/21 pyco Other XR lumbar spine 2-3V* XR/XR lumbar spine 2-3V*: M43.06 pyco Other XR lumbar spine 2-3V* ([id number]) XR/XR thoracic spine 3V*: G89.29 pyco Other XR lumbar spine 2-3V* Copies to: Saroj Nguyen MD pyco Other XR lumbar spine 2-3V* XR thoracic spine 3V*, XR lumbar spine 2-3V* 04/13/2021 3:09 PM pyco Other XR lumbar spine 2-3V* SIGNS AND SYMPTOMS: Pain between scapula. Right gluteal pain and posterior thigh pain pyco Other XR lumbar spine 2-3V* PROTOCOLS: Frontal and lateral radiographs of the thoracic and lumbar spine pyco Other XR lumbar spine 2-3V* COMPARISON: MRI of thoracic spine 05/05/[address] lumbar spine 03/11/2020 pyco Other XR lumbar spine 2-3V* FINDINGS: pyco Other XR lumbar spine 2-3V* Thoracic spine: pyco Other XR lumbar spine 2-3V* The bones are in anatomic alignment with preservation of vertebral body heights. There is mild disc pyco Other XR lumbar spine 2-3V* height loss in the lower thoracic spine with mild anterior and lateral osteophyte formation. No pyco Other XR lumbar spine 2-3V* evidence of fracture or bony destructive lesion. pyco Other XR lumbar spine 2-3V* Lumbar spine: pyco Other XR lumbar spine 2-3V* There is evidence of previous posterior fusion and intervertebral fusion body hardware placement at pyco Other XR lumbar spine 2-3V* L4-L5. There is posterior decompression from L3 through S1 similar to the prior CT. There is mild pyco Other XR lumbar spine 2-3V* L5-S1 intervertebral disc height loss which is slightly worse when compared to the prior CT. There pyco Other XR lumbar spine 2-3V* is a mild levoconvex curvature of the lumbar spine which is unchanged. There is no evidence of pyco Other XR lumbar spine 2-3V* fracture or subluxation. There is evidence of prior cholecystectomy. Mild degenerative changes are pyco Other XR lumbar spine 2-3V* noted in the sacroiliac joints. pyco Other XR lumbar spine 2-3V* XR/XR thoracic spine 3V* pyco Other XR lumbar spine 2-3V* IMPRESSION: pyco Other XR lumbar spine 2-3V* Minimal degenerative changes are noted in the lower thoracic spine. No significant interval change pyco Other XR lumbar spine 2-3V* is noted. pyco Other XR lumbar spine 2-3V* No fracture or subluxation. [facility] [employer] Other XR lumbar spine 2-3V* Slight interval worsening of adjacent segment degenerative change at L5-S1. pyco Other XR lumbar spine 2-3V* Unchanged fusion hardware and intervertebral fusion body at L4-L5 with posterior decompression from pyco Other XR lumbar spine 2-3V* L3 through S1. pyco Other XR lumbar spine 2-3V* Impression dictated by: Petros Diop M.D.04/13/2021 3:44 PM pyco Other XR lumbar spine 2-3V* Dictation Location: [place] [address] pyco Other XR lumbar spine 2-3V* Transcribed By: PWS 04/13/21 1544 pyco Other XR lumbar spine 2-3V* Dictated By: Petros Diop II, MD 04/13/21 [facility] pyco Other XR lumbar spine 2-3V* Signed By: pyco Other XR lumbar spine 2-3V* 04/13/21 [facility] pyco Other Provider Orderson 07-01-2020 Provider Orders [id number] Summaryon 02-02-2020 Coding Summary CODING DATE: 020 [facility] STATUS: Home PAYOR: Medicaid HMO ADMIT [...] Sonia Joya Date Saved: 02/02/2020 01:08 pm [facility] Consent Formson 02-02-2020 Consent Forms [id number]#[facility] 01-30-2020 Provider Orders [id number]#[id number] Normal [facility] 2019 Novel Coronavirus (CoVI D-19), GEORGE LCon 01-29-2020 SARS-CoV-2, GEORGE (COVID-19) LC Not Detected Not Detected [facility] Comment on above: Order Comment: [id number] 1 Result Comment: This nucleic acid amplification test was developed and its performance characteristics determined by [employer]. Nucleic acid amplification tests include PCR and [...] detected) result in this assay. Performed At: [facility] [address] [place] [id number] Maria Ines Suero MD Ph:[phone] Performed By: #### 6 [id number] #### [facility] (DEFAULT) [address] [place] [address] CNCOon 09-10-2017 CNCO Normal [facility] MRI BRAIN WO IVCONon 018 MRI [...] SOLANO MD on Jul 11 2017 5:20PM [id number] Normal [facility] PROGRESSon 07-11-2017 PROGRESS HNO ID: [id number] thor: Matthew Anguiano (Rt): RadiologyAuthor Type: TechnicianType: Progress NotesFiled: 07/11/2017 4:27 PMNote Text: Radiology Service Progress NotePATIENT NAME: Xiang MahoneyMRN: [id number] OF SERVICE: July 11, 2017TIME: 4:26 PMPATIENT IDENTITY VERIFICATION COMPLETED USING TWO (2) METHODS: Patientconfirmed name verbally and Date of .PATIENT GENDER DATA: Female. status: : NoBreastfeeding status: NO.PATIENT RELEVANT IMPLANT DATA REVIEWED: YesRADIOLOGY DEPARTMENT: MR; Exam(s) Completed: Head: Routine BrainPERIPHERAL IV DATA: Not applicableSIGNED BY: RT AnnmarieFebruary 2017 4:26 PM [facility] PROGRESS HNO ID: [id number] thor: Galo Hurd: (none)Author Type: PhysicianType: Progress NotesFiled: 07/20/2017 11:12 AMNote Text:Skin Biopsy Procedure NoteSkin Biopsy Accession Number: [id number] Date: 07/11/2017Referring physician: Dr Warner Sign inPt ID verified with patient. Yes, by name and date.Is patient allergic to lidocaine, epinephrine, or bandage adhesive: NoIs patient on anticoagulant medicine or blood thinners: NoDoes patient have a history of surgery on legs or feet: NoProcedure verified with the patient: Yes, left leg biopsies, 3 sites.Ibpqpqa13 year old female with symptoms of Neuropathy for 4 years is referredfor skin biopsy to evaluate for possible small fiber neuropathy.Written aftercare was given and explained: YesPatient verbally agrees to proceed with the procedure.Sign in completed: YesProcedure NoteProcedure confirmed with provider and pharmacy retail support specialist. Yes, left leg 3 skinbiopsies.The procedure was [...] home. Specim[facility]Procedure was performed by: Marcos Clifford in supply/equipment preparation performed by: Lillian Mena)Sign out is complete.Galo Saavedra MD, PhDStaffNeuromuscular NevadaNeurological Institute[address] [address]Uvzsqisvl [phone] [phone] 2017Skin biopsy processing and interpretation completed.Please see Procedure section of EMR for report.Galo Saavedra MD, PhDStLos Angeles Metropolitan Medical CenterlaRehabilitation Hospital of [facility] CHINMAY by IFA w/Reflexon 2017 [place]Y Pattern Negative [facility] Comment on above: Performed By: #### I CA, PTHI, CK, MG1, PHOS, GLU, TSH, B12, ANAIFR, IFESC ####[address] [phone]#### VITB6 ####[facility] [address] [phone] [place]IN[place]Y Titer Negative Normal Negative [facility] Comment on above: Result Comment: Norm al range : negative at <1:80 serum dilution.Approximately 6% of patients with connective tissue diseases with low positive EIA values are negative by IFA. Recommend follow-up with specific antinuclear antibodies if clinically indicated. Performed By: #### I CA, PTHI, CK, MG1, PHOS, GLU, TSH, B12, ANAIFR, IFESC ####[address] [phone]#### VITB6 ####[facility] [address] [place] [address] [phone] Result Comment: Norm al range : negative at <1:80 serum dilution. [facility] Creatine kinase (CK) 73 U/L Normal 42-196 [facility] Comment on above: Result Comment: Phyllis pritchard note the updated, gender-specific reference range for this test (effective 05/04/2016). Performed By: #### I CA, PTHI, CK, MG1, PHOS, GLU, TSH, B12, ANAIFR, IFESC ####[address] [phone]#### VITB6 ####[facility] [address] [place], [place] [phone] Calcium, Ionizedon 8 Calcium 1.10 mmol/L Normal 1.08-1.30 [facility] Comment on above: Performed By: #### I CA, PTHI, CK, MG1, PHOS, GLU, TSH, B12, ANAIFR, IFESC ####[facility] [address] [place], [place] [phone]#### VITB6 ####[facility] [address] [place], [place] [phone] Calcium, Ionized 1.17 mmol/L Normal 1.08-1.30 [facility] Comment on above: Performed By: #### I CA, PTHI, CK, MG1, PHOS, GLU, TSH, B12, ANAIFR, IFESC ####[place] [address] [place], [place] [phone]#### VITB6 ####[facility] [address] [place], [place] [phone] Glucoseon 06-25-2017 Glucose mass conc 71 mg/dL Low 74-99 [facility] Comment on above: Result Comment: The [place] Diabetes Association (ADA) provides guidance for cutoff [...] Standards of Medical Care in Diabetes 2016, [place] [employer]. Diabetes Care. 2016.39(Suppl 1). Performed By: #### I CA, PTHI, CK, MG1, PHOS, GLU, TSH, B12, ANAIFR, IFESC ####[address] [place], [place] [phone]#### VITB6 ####[facility] [address] [place], [place] [phone] TATIANA Screen, Serumon 06-25-19 18 MPA Result No M protein is identified. Normal No M protein is identified . [facility] Comment on above: Performed By: #### I CA, PTHI, CK, MG1, PHOS, GLU, TSH, B12, ANAIFR, IFESC ####[address] [place], [place] [phone]#### VITB6 ####[address] [phone] Staff Review Reviewed by Te funes M.D. ([id number]) Normal [facility] Comment on above: Performed By: #### I CA, PTHI, CK, MG1, PHOS, GLU, TSH, B12, ANAIFR, IFESC ####[facility] [place], [place] [phone]#### VITB6 ####[address] [phone] Magnesiumon 06-25-2017 Magnesium 1.8 mg/dL Normal 1.7-2.3 [facility] Comment on above: Performed By: #### I CA, PTHI, CK, MG1, PHOS, GLU, TSH, B12, ANAIFR, IFESC ####[facility] [place], [place] [phone]#### VITB6 ####[address] [phone] PROGRESSon 06-25-2017 PROGRESS HNO ID: [id number] thor: Minnie Riveraervice: (none)Author Type: PhysicianType: Progress [...] years andadulthood. Follows with Dr. Gabino Quintero ([facility]): started onLamictal, Effexor, Gabapentin, and Vistaril. Has [...] Ibuprofen Hives- Nsaids (Non-Steroid* Vomiting- Penicillins Anaphylaxis- [place] Dye Hives- [place] Hives- Vicodin [Hydrocodon* HivesObjectiveREVIEW OF SYSTEMS:13 point [...] Vit B6, Magnesium, Immunofixation, CHINMAY, ionized calcium,PTH, WizL0B-SJJ-NYG LLE-Skin biopsy for small fiber neuropathyPlan discussed with Dr. Flor Warner. Please see staff note for finalrecommendations.Nisha Chavez, [facility] Neurology, PGY-3Pager [phone] Addendum:I have seen and evaluated the patient and discussed the case with theresident physician. I agree with the assessment and plan as documented inthe resident?s note.Minnie Warner MD Normal [facility] PTH, Intacton 06-25-2017 PTH, Intact 70 pg/mL High 15-65 [facility] Comment on above: Performed By: #### I CA, PTHI, CK, MG1, PHOS, GLU, TSH, B12, ANAIFR, IFESC ####[facility] [address] [place], [place] [phone]#### VITB6 ####[facility] [address] [place], [place] [phone] Phosphoruson 06-25-2017 Phosphate 3.7 mg/dL Normal 2.7-4.8 [facility] Comment on above: Performed By: #### I CA, PTHI, CK, MG1, PHOS, GLU, TSH, B12, ANAIFR, IFESC ####[address] [phone]#### VITB6 ####[facility] [address] [place] [address] [phone] TSHon 06-25-2017 Thyroid stimulating hormone (TSH) 0.685 uU/mL Normal 0.400-5.50 0 [facility] Comment on above: Result Comment: If t he patient is , TSH reference range varies by gestational period:First Trimester 0.100-2.500 uU/mLSecond Trimester 0.200-3.000 uU/mLThird Trimester 0.300-3.000 uU/mLReferences: 1. Rangel L, Fish M, Lon EK, et al. Management of Thyroid Dysfunction during and : An Endocrine Society Clinical Practice Guideline. J Clin Endocrinol Metab, 2012:97:8761-7855. 2. Navi MCKEON. Overview of thyroid disease in . UpToDate. 2016. Accessed on November 05, 2015. Performed By: #### I CA, PTHI, CK, MG1, PHOS, GLU, TSH, B12, ANAIFR, IFESC ####[address] [phone]#### VITB6 ####[address] [phone] Vitamin B12on 06-25-2017 Cobalamins (Vitamin B12) 476 pg/mL Normal 232-1245 [facility] Comment on above: Performed By: #### I CA, PTHI, CK, MG1, PHOS, GLU, TSH, B12, ANAIFR, IFESC ####[address] [phone]#### VITB6 ####[address] [phone] Vitamin B6 Plasmaon 06-25-19 18 Vitamin B6 Plasma 20.9 nmol/L Normal 20.0-125.0 [facility] Comment on above: Result Comment: (NOT E)INTERPRETIVE INFORMATION: Vitamin B6 (Pyridoxal 5-Phosphate)Pyridoxal 5'-phosphate measured in a specimen collected followingan 8-hour or overnight fast accurately indicates vitamin Y6uoenrhsespj status. Non-fasting specimen concentration reflectsrecent vitamin intake.Test developed and characteristics determined by [facility]. See Compliance Statement B: [employer]/CSPerformed by [facility],[address] [place] [address] lvr.[employer], Delon Araya MD, Lab. Director Performed By: #### I CA, PTHI, CK, MG1, PHOS, GLU, TSH, B12, ANAIFR, IFESC ####[facility] [address] [place], [place] [phone]#### VITB6 ####[facility] [place], [place] [phone] CNOVon 05-16-2017 CNOV Office Visit (SPNSMN) -------MAHONEYXIANG Marlow ([id number]) 1990 FDate Time Provider Ehwyqdbvnd78/27/17 2:40 PM ANNABELLE CLAIRE) SPNSMN During your [...] (6') Wt 102.5 kg (226 lb) BMI30.65 kg/p6CMLJUCB APPEARANCE: Obese.NEURO PSYCH: Patient oriented to person, [...] [R25.3]Order(s):CONSULT TO CHRONIC PAIN REHABILITATION (NON-PAIN ANESTHESIA) [[id number]] Order #: [id number]: 1 CONSULT TO NEUROLOGY [9019] Order #: [id number]: 1Prescriptions as of 05/16/2017 Sig: GABAPENTIN 600 [...] to improve.Follow-up and Disposition History RecordedEncounter Number: [id number] Status:Closed by ANNABELLE CLAIRE on 05/16/17 [facility] PROGRESSon 05-16-2017 PROGRESS HNO ID: [id number] thor: Annabelle Grigsby) Florencia: (none)Author Type: Physician [...] Wt 102.5 kg (226 lb) BMI 30.65 kg/v5EOXQOPQ APPEARANCE: Obese.NEURO PSYCH: Patient oriented to person, [...] 16, 2017 : 4:33 PM PAGER: Normal [facility] MR-MR lumbar spine wo/w con IMPORTon 04-23-2017 MR-MR lumbar spine wo/w con IMPORT Images were obtained outside of [facility] [id number] Normal [facility] MR-XR pre/post mri xray IMPO RTon 04-23-2017 MR-XR pre/post mri xray IMPORT Images were obtained outside of [facility] [id number] Normal [facility] MR-MR CERVICAL SPINE WO CONT IMPORTon 03-27-2017 MR-MR CERVICAL SPINE WO CONT IMPORT Images were obtained outside of [facility] [id number] Normal [facility] MR-MR CERVICAL SPINE WO CONT IMPORT Images were obtained outside of [facility] [id number] Normal [facility] CNOVon 03-15-2017 CNOV Office Visit (SPNSMN) -------XIANG MAHONEY ([id number]) 1990 FDate Time Provider Hrnjxmrbyu81/26/17 9:40 AM ANNABELLE CLAIRE) SPNSMN During your [...] 09/27/14 she had emergency surgery with 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,for CSF leak.She reports that she has been [...] file.FibromyalgiaOAGERDMigr ainesAsthmaPast surgical history on file.Lumbar surgery x3yqvayqrzixxwdnjN-nykvxhr x3No family history on file.Social History Marital status: Unknown Spouse name: Years of education: Number of children:Social History Main Topics Smoking status: Current Every Day Smoker Packs/day: 0.00 Years: 0.00 Alcohol use: NoALLERGIESAllergen Reactions- Amoxicillin Anaphylaxis- Calderón Anaphylaxis- Dilaudid [Hydromorp* Hives- Duricef [Cefadroxil] Hives- Ibuprofen Hives- Nsaids (Non-Steroid* Vomiting- Penicillins Anaphylaxis- [place] Dye Hives- [place] Hives- Vicodin [Hydrocodon* HivesMEDICATIONS:cyclobenza heidy (FLEXERIL) 5 [...] (6') Wt 103 kg (227lb) BMI 30.79 kg/c8DAUGOBV APPEARANCE: Well nourished, well developed, and no [...] is no fracture.??The conus medullaris terminates normally ywV98-R5.??Small Schmorl's nodes.??No fluid collection or epiduralprocess.??Minimal paraspinal [...] lumbar surgery [Z98.890]Order(s):XR CERV OTHER 4V AP/LAT/FLX/EXT [[id number]] Order #: [id number] FUTURE XR LUMBAR MOTION 4V AP/LAT/ FLEX/EXT [[id number]] Order #: [id number] FUTURE MRI CERVICAL SPINE WO IVCON [[id number]] Order #: [id number] FUTUREPrescriptions as of 03/15/2017 Sig: CYCLOBENZAPRINE 5 [...] Date: 03/15/2017(None)Follow-up and Disposition History RecordedEncounter Number: [id number] Status:Closed by ANNABELLE CLAIRE on 03/15/17 [facility] DX-XR SPINE CERVICAL 4 OR 5 VWS IMPORTon 03-15-2017 DX-XR SPINE CERVICAL 4 OR 5 VWS IMPORT Images were obtained outside of [facility] [id number] [facility] DX-XR SPINE CERVICAL 4 OR 5 VWS IMPORT Images were obtained outside of [facility] [id number] [facility] DX-XR SPINE LUMBAR MIN 4 VWS IMPORTon 03-15-2017 DX-XR SPINE LUMBAR MIN 4 VWS IMPORT Images were obtained outside of [facility] [id number] [facility] DX-XR SPINE LUMBAR MIN 4 VWS IMPORT Images were obtained outside of [facility] [id number] Normal [facility] PROGRESSon 03-15-2017 PROGRESS HNO ID: [id number] thor: Annabelle Grigsby) JulietacoSer: (none)Author Type: Physician [...] file.FibromyalgiaOAGERDMigr ainesAsthmaPast surgical history on file.Lumbar surgery z6cyetwmsewdotporF-eisgnnw x3No family history on file.Social History Marital status: Unknown Spouse name: Years of education: Number of children:Social History Main Topics Smoking status: Current Every Day Smoker Packs/day: 0.00 Years: 0.00 Alcohol use: NoALLERGIESAllergen Reactions- Amoxicillin Anaphylaxis- Calderón Anaphylaxis- Dilaudid [Hydromorp* Hives- Duricef [Cefadroxil] Hives- Ibuprofen Hives- Nsaids (Non-Steroid* Vomiting- Penicillins Anaphylaxis- [place] Dye Hives- [place] Hives- Vicodin [Hydrocodon* HivesMEDICATIONS:cyclobenza heidy (FLEXERIL) 5 mg tablet Take 5 mg by mouth three timesdaily as needed.GUAIFENESIN/DEXTROME THORPHAN (DEXTROMETHORPHAN-GUAIFENES IN ORAL) Oyhr05-988 mg by mouth.doxycycline hyclate (VIBRAMYCIN) 100 mg [...] (6') Wt 103 kg(227 lb) BMI 30.79 kg/m2KXDBSBI APPEARANCE: Well nourished, well developed, and no [...] on and bulging of the L3-4 through L5-G4iedejblcikfjxb discs.??The alignment of the lumbosacral spine isnormal.??Postoperative [...] 15, 2017 : 2:56 PM PAGER: [facility] MR-MR LUMBAR SPINE W WO CONT IMPORTon 12-05-2016 MR-MR LUMBAR SPINE W WO CONT IMPORT Images were obtained outside of [facility] [id number] [facility] MR-MR LUMBAR SPINE W WO CONT IMPORT Images were obtained outside of [facility] [id number] [facility] Vital Signs Date Time Vital Sign Value Performing Clinician Facility 07-24-2023 14:18-0500 Body height 180.3 cm [employer] Work Phone: [facility] 07-24-2023 14:18-0500 Body mass index (BMI) [Ratio] 37.25 kg/m2 [employer] Work Phone: [facility] 07-24-2023 14:18-0500 Body temperature 97.3 [degF] [employer] Work Phone: [facility] 07-24-2023 14:18-0500 Body weight 121.16 kg King Furlong DO Work Phone: [facility] 07-24-2023 14:18-0500 Diastolic blood pressure 70 mm[Hg] King Furlong DO Work Phone: [facility] 07-24-2023 14:18-0500 Heart rate 86 /min King Furlong DO Work Phone: [facility] 07-24-2023 14:18-0500 SaO2% (BldA) [Mass fraction] 96 % King Furlong DO Work Phone: [facility] 07-24-2023 14:18-0500 Systolic blood pressure 110 mm[Hg] King Furlong DO Work Phone: [facility] 07-03-2023 13:15-0500 Body height 180.3 cm King Furlong DO Work Phone: [facility] 07-03-2023 13:15-0500 Body mass index (BMI) [Ratio] 35.59 kg/m2 King Furlong DO Work Phone: [facility] 07-03-2023 13:15-0500 Body temperature 98.2 [degF] King Furlong DO Work Phone: [facility] 07-03-2023 13:15-0500 Body weight 115.76 kg King Furlong DO Work Phone: [facility] 07-03-2023 13:15-0500 Diastolic blood pressure 60 mm[Hg] King Furlong DO Work Phone: [facility] 07-03-2023 13:15-0500 Heart rate 82 /min King Furlong DO Work Phone: [facility] 07-03-2023 13:15-0500 SaO2% (BldA) [Mass fraction] 94 % King Furlong DO Work Phone: [facility] 07-03-2023 13:15-0500 Systolic blood pressure 100 mm[Hg] King Furlong DO Work Phone: [facility] 06-12-2023 13:05-0500 Body height 180.3 cm Abby Berg MD Work Phone: [facility] 06-12-2023 13:05-0500 Body mass index (BMI) [Ratio] 37.22 kg/m2 Abby Berg MD Work Phone: [facility] 06-12-2023 13:05-0500 Body weight 121.06 kg Abby Berg MD Work Phone: [facility] 06-12-2023 13:05-0500 Diastolic blood pressure 74 mm[Hg] Abby Berg MD Work Phone: [facility] 06-12-2023 13:05-0500 Heart rate 90 /min Abby Berg MD Work Phone: [facility] 06-12-2023 13:05-0500 SaO2% (BldA) [Mass fraction] 97 % Abby Berg MD Work Phone: [facility] 06-12-2023 13:05-0500 Systolic blood pressure 117 mm[Hg] Abby Berg MD Work Phone: [facility] 06-08-2023 11:17-0500 Body height 180.3 cm King Furlong DO Work Phone: [facility] 06-08-2023 11:17-0500 Body mass index (BMI) [Ratio] 37.32 kg/m2 King Furlong DO Work Phone: [facility] 06-08-2023 11:17-0500 Body temperature 98.01 [degF] Knig Furlong DO Work Phone: [facility] 06-08-2023 11:17-0500 Body weight 121.38 kg King Furlong DO Work Phone: [facility] 06-08-2023 11:17-0500 Diastolic blood pressure 82 mm[Hg] King Furlong DO Work Phone: [facility] 06-08-2023 11:17-0500 Heart rate 91 /min King Furlong DO Work Phone: [facility] 06-08-2023 11:17-0500 SaO2% (BldA) [Mass fraction] 97 % King Furlong DO Work Phone: [facility] 06-08-2023 11:17-0500 Systolic blood pressure 130 mm[Hg] King Furlong DO Work Phone: [facility] 06-06-2023 14:54-0500 SaO2% (BldA) [Mass fraction] 100 % JESU [facility] [place] [facility] Comment on above: Performed By: #### VBG #### [facility] ([id number]) [address] [place] [address] 06-06-2023 11:30-0500 Body height 177.16 cm [employer] Other [facility] Other 06-06-2023 11:30-0500 Body mass index (BMI) [Ratio] 38.8 kg/m2 [employer] Other [facility] Other 06-06-2023 11:30-0500 Body weight 121.79 kg [employer] Other [facility] Other 06-06-2023 11:30-0500 Diastolic blood pressure 75 mm[Hg] [employer] Other [facility] Other 06-06-2023 11:30-0500 Respiratory rate 82 /min Rainer Barrera Other [facility] Other 06-06-2023 11:30-0500 SaO2% (BldA) [Mass fraction] 98 % Rainer Barrera Other [facility] Other 06-06-2023 11:30-0500 Systolic blood pressure 106 mm[Hg] Rainer Barrera Other [facility] Other 05-16-2023 15:52-0500 Body height 182.2 cm Fiorella Murnen CARETAKER RESORT-CODING MACHINE OPERATOR Work Phone: [facility] 05-16-2023 15:52-0500 Diastolic blood pressure 58 mm[Hg] Fiorella Murnen CARETAKER RESORT-CODING MACHINE OPERATOR Work Phone: [facility] 05-16-2023 15:52-0500 Heart rate 86 /min Fiorella Murnen CARETAKER RESORT-CODING MACHINE OPERATOR Work Phone: [facility] 05-16-2023 15:52-0500 Systolic blood pressure 92 mm[Hg] Fiorella Murnen CARETAKER RESORT-CODING MACHINE OPERATOR Work Phone: [facility] 03-27-2023 11:15-0500 Body height 177.16 cm Rainer Barrera Other [facility] Other 03-27-2023 11:15-0500 Body mass index (BMI) [Ratio] 39.19 kg/m2 Rainer Barrera Other [facility] Other 03-27-2023 11:15-0500 Body weight 123.02 kg Rainer Barrera Other [facility] Other 03-27-2023 11:15-0500 Diastolic blood pressure 75 mm[Hg] Rainermargaret Barrera Other [facility] Other 03-27-2023 11:15-0500 Respiratory rate 99 /min Rainer Barrera Other [facility] Other 03-27-2023 11:15-0500 SaO2% (BldA) [Mass fraction] 98 % Rainer Barrera Other [facility] Other 03-27-2023 11:15-0500 Systolic blood pressure 107 mm[Hg] Rainer Barrera Other [facility] Other 11-09-2022 13:30-0400 Body height 182.25 cm [employer] Other [facility] Other 11-09-2022 13:30-0400 Body mass index (BMI) [Ratio] 36.87 kg/m2 [employer] Other [facility] Other 11-09-2022 13:30-0400 Body weight 122.47 kg [employer] Other [facility] Other 11-09-2022 13:30-0400 Diastolic blood pressure 76 mm[Hg] [employer] Other [facility] Other 11-09-2022 13:30-0400 Systolic blood pressure 112 mm[Hg] [employer] Other [facility] Other 10-18-2022 18:15-0400 Body height 182.25 cm Nicole Zhang Other [facility] Other 10-18-2022 18:15-0400 Body mass index (BMI) [Ratio] 36.87 kg/m2 Nicole Zhang Other [facility] Other 10-18-2022 18:15-0400 Body temperature 98.8 [degF] Nicole Zhang Other [facility] Other 10-18-2022 18:15-0400 Body weight 122.47 kg Nicole Zhang Other [facility] Other 10-18-2022 18:15-0400 Respiratory rate 18 /min Nicole Zhang Other [facility] Other 10-18-2022 18:15-0400 SaO2% (BldA) [Mass fraction] 96 % Nicole Zhang Other [facility] Other 09-28-2022 10:10-0400 Body height 182.25 cm Pratima Hill Other [facility] Other 09-28-2022 10:10-0400 Body mass index (BMI) [Ratio] 36.73 kg/m2 Pratima Hill Other [facility] Other 09-28-2022 10:10-0400 Body weight 122.02 kg Pratima Hill Other [facility] Other 09-28-2022 10:10-0400 Diastolic blood pressure 80 mm[Hg] PratimaMAZ Other [facility] Other 09-28-2022 10:10-0400 Systolic blood pressure 120 mm[Hg] Pratima Hill Other [facility] Other 09-08-2022 17:11-0400 Body height 180.34 cm DILIA Mckoy Work Phone: [facility] 09-08-2022 17:11-0400 Body temperature 98.2 [degF] DILIA Mcoky Work Phone: [facility] 09-08-2022 17:11-0400 Body weight 125 kg DILIA Mckoy Work Phone: [facility] 09-08-2022 17:11-0400 Diastolic blood pressure 74 mm[Hg] DILIA Mckoy Work Phone: [facility] 09-08-2022 17:11-0400 Heart rate 90 /min CARETAKER RESORTSheridan Mckoy Work Phone: [facility] 09-08-2022 17:11-0400 Respiratory rate 18 /min DILIA Mckoy Work Phone: [facility] 09-08-2022 17:11-0400 SaO2% (BldA) [Mass fraction] 98 % DILIA Mckoy Work Phone: [facility] 09-08-2022 17:11-0400 Systolic blood pressure 128 mm[Hg] DILIA Mckoy Work Phone: [facility] 03-14-2022 13:43-0400 Diastolic blood pressure 53 mm[Hg] Karen Spaulding MD Work Phone: [facility] 03-14-2022 13:43-0400 Heart rate 104 /min Karen Spaulding MD Work Phone: [facility] 03-14-2022 13:43-0400 Respiratory rate 24 /min Karen Spaulding MD Work Phone: [facility] 03-14-2022 13:43-0400 SaO2% (BldA) [Mass fraction] 93 % Karen Spaulding MD Work Phone: [facility] 03-14-2022 13:43-0400 Systolic blood pressure 106 mm[Hg] Karen Spaulding MD Work Phone: [facility] 03-14-2022 09:26-0400 Body height 180.3 cm Karen Spaulding MD Work Phone: [employer] 03-14-2022 09:26-0400 Body mass index (BMI) [Ratio] 34.87 kg/m2 Karen Spaulding MD Work Phone: [facility] 03-14-2022 09:26-0400 Body temperature 98.8 [degF] Karen Spaulding MD Work Phone: [facility] 03-14-2022 09:26-0400 Body weight 113.4 kg Karen Spaulding MD Work Phone: [facility] 03-01-2022 12:15-0400 Body height 182.25 cm Lola Trevino Other [facility] Other 01-18-2022 11:15-0400 Body height 182.25 cm Dereck Dempsey Other [facility] Other 01-18-2022 11:15-0400 Body mass index (BMI) [Ratio] 35.72 kg/m2 Dereck Dempsey Other [facility] Other 01-18-2022 11:15-0400 Body weight 118.66 kg Dereck Dempsey Other [facility] Other 01-18-2022 11:15-0400 Diastolic blood pressure 68 mm[Hg] Dereck Dempsey Other [facility] Other 01-18-2022 11:15-0400 Respiratory rate 18 /min Dereck Dempsey Other [facility] Other 01-18-2022 11:15-0400 SaO2% (BldA) [Mass fraction] 99 % Dereck Dempsey Other [facility] Other 01-18-2022 11:15-0400 Systolic blood pressure 98 mm[Hg] Dereck Dempsey Other [facility] Other 12-06-2021 14:00-0400 Body height 182.25 cm Dereck Dempsey Other [facility] Other 12-06-2021 14:00-0400 Body mass index (BMI) [Ratio] 35.46 kg/m2 Dereck Kidddiff Other [facility] Other 12-06-2021 14:00-0400 Body weight 117.8 kg Dereck Kidddiff Other [facility] Other 12-06-2021 14:00-0400 Diastolic blood pressure 79 mm[Hg] Dereck Dempsey Other [facility] Other 12-06-2021 14:00-0400 Respiratory rate 18 /min Dereck Dempsey Other [facility] Other 12-06-2021 14:00-0400 SaO2% (BldA) [Mass fraction] 97 % Dereck Kidddiff Other [facility] Other 12-06-2021 14:00-0400 Systolic blood pressure 106 mm[Hg] Dereck Kidddiff Other [facility] Other 09-02-2021 11:45-0400 Body height 182.25 cm Saroj Nguyen Other [facility] Other 09-02-2021 11:45-0400 Body mass index (BMI) [Ratio] 33.73 kg/m2 Saroj Nguyen Other [facility] Other 09-02-2021 11:45-0400 Body weight 112.04 kg Saroj Elskeiko Other [facility] Other 07-19-2021 11:00-0500 Body height 182.25 cm Te Olexa Other [facility] Other 07-19-2021 11:00-0500 Body mass index (BMI) [Ratio] 33.73 kg/m2 Et Olexa Other [facility] Other 07-19-2021 11:00-0500 Body weight 112.04 kg Te Olexa Other [facility] Other 05-04-2021 12:00-0500 Body height 182.25 cm Saroj Nguyen Other [facility] Other 05-04-2021 12:00-0500 Body mass index (BMI) [Ratio] 36.87 kg/m2 Saroj Nguyen Other [facility] Other 05-04-2021 12:00-0500 Body weight 122.47 kg Saroj Nguyen Other [facility] Other 04-13-2021 15:00-0500 Body height 182.25 cm Saroj Nguyen Other [facility] Other 04-13-2021 15:00-0500 Body mass index (BMI) [Ratio] 36.87 kg/m2 Saroj Nguyen Other [facility] Other 04-13-2021 15:00-0500 Body weight 122.47 kg Saroj Nguyen Other [facility] Other 04-13-2021 15:00-0500 Diastolic blood pressure 75 mm[Hg] Saroj Nguyen Other [facility] Other 04-13-2021 15:00-0500 Systolic blood pressure 128 mm[Hg] Saroj Nguyen Other [facility] Other Encounters Encounter Date Encounter Type Care Provider Facility Start: 12-30-2023 End: 01-01-2024 Emergency department patient visit NATALI PACE [facility] Start: 12-30-2023 End: 12-31-2023 ambulatory [facility] Start: 12-27-2023 End: 12-27-2023 ambulatory NATALI ALEXANDRA Not Available Start: 12-18-2023 End: 12-18-2023 ambulatory HAYDEN KIRKPATRICK Not Available Start: 12-06-2023 End: 12-06-2023 ambulatory DAVE [facility] Start: 12-03-2023 End: 12-03-2023 ambulatory HAYDEN KIRKPATRICK Not Available Start: 11-26-2023 End: 11-26-2023 ambulatory HAYDEN KIRKPATRICK Not Available Start: 11-13-2023 End: 11-13-2023 ambulatory JESU LEWIS [facility] Start: 11-09-2023 ambulatory CAROL URBINA [facility] Start: 10-16-2023 End: 10-16-2023 Emergency department patient visit [place] [facility] Start: 10-10-2023 End: 10-10-2023 Evaluation and management of inpatient JOAQUIN E MURRAY [facility] Start: 10-09-2023 End: 10-10-2023 Evaluation and management of inpatient S. DAVID JAMES [facility] Start: 10-09-2023 End: 10-09-2023 Evaluation and management of inpatient S. BASJACEK WIGGINSNI [facility] Start: 10-01-2023 End: 10-01-2023 Evaluation and management of inpatient KING Hale [facility] Start: 09-11-2023 End: 09-11-2023 ambulatory JESU NEVAREZ Not Available Start: 09-06-2023 End: 09-06-2023 ambulatory [facility] Start: 09-05-2023 End: 09-05-2023 ambulatory DAVE MARIN [facility] Start: 08-23-2023 Orders Only Nicole Beal CMA [facility] Comment on above: Diarrhea, unspecifie d type (Primary Dx) Start: 08-20-2023 End: 08-24-2023 Emergency department patient visit LATOSHA NICHOLAS [facility] Start: 08-20-2023 End: 08-24-2023 Evaluation and management of inpatient KING Hale [facility] Start: 08-20-2023 Refill Kiara Jese [facility] Start: 08-17-2023 End: 08-17-2023 ambulatory [facility] Start: 08-15-2023 End: 08-15-2023 ambulatory [facility] Start: 08-08-2023 Telephone encounter Tiffanie Welsh pratibhacandi CARETAKER RESORT-CODING MACHINE OPERATOR Work Phone: [facility] Start: 08-08-2023 End: 08-08-2023 ambulatory [facility] Start: 08-08-2023 End: 08-08-2023 Office outpatient new 60 minutes Tiffanie Molina CARETAKER RESORT-CODING MACHINE OPERATOR Work Phone: [facility] Comment on above: Nausea and vomiting, unspecified vomiting type (Primary Dx); Generalized abdominal pain; Abnormal CT of the abdomen; Colitis; Lower abdominal pain; Hx of iron deficiency; Dark emesis; Chronic GERD; Duodenitis; Diarrhea, unspecified type Start: 07-31-2023 Orders Only Haily Maynard CARETAKER RESORT-PATTERN DATA OPERATOR Work Phone: [facility] - Family Medicine Comment on above: Bipolar affective di sorder, remission status unspecified ([facility]) (Primary Dx); Major depressive disorder, recurrent severe without psychotic features ([facility]) Start: 07-24-2023 End: 07-24-2023 ambulatory [facility] Start: 07-24-2023 End: 07-24-2023 Office outpatient visit 25 minutes King Robles DO Work Phone: [facility] Comment on above: Type 2 diabetes stefan itus with diabetic polyneuropathy, with long-term current use of insulin ([facility]) (Primary Dx); Hypokalemia; Hypomagnesemia; Elevated LFTs; Colitis Start: 07-24-2023 End: 07-24-2023 ambulatory [facility] Start: 07-23-2023 End: 07-23-2023 ambulatory JESU NEVAREZ Not Available Start: 07-09-2023 Orders Only King parra DO Work Phone: [facility] - [facility] Comment on above: Surgical Or Dental C learance Start: 07-06-2023 Refill Aniket Richmond APRN-CODING MACHINE OPERATOR Work Phone: [facility] Start: 07-03-2023 End: 07-03-2023 Office outpatient visit 25 minutes King Robles DO Work Phone: [facility] - [facility] Comment on above: Major depressive dis order, recurrent severe without psychotic features ([facility]) (Primary Dx); Bipolar I disorder, single manic episode, severe, with psychosis ([facility]); Colitis; Elevated LFTs; Degenerative lumbar spinal stenosis; Type 2 diabetes mellitus with diabetic polyneuropathy, with long-term current use of insulin ([facility]); Accelerated junctional rhythm Start: 07-03-2023 End: 07-03-2023 ambulatory [facility] Start: 06-27-2023 End: 07-01-2023 Emergency department patient visit OLAYINKA R WALKER [facility] Start: 06-27-2023 End: 06-30-2023 ambulatory KING SAEZAIDA [facility] Start: 06-26-2023 End: 06-27-2023 Emergency department patient visit LATOSHA NICHOLAS [facility] Start: 06-26-2023 End: 06-26-2023 Emergency department patient visit KING SAEZAIDA [facility] Start: 06-25-2023 Telephone encounter Bobbi chowdhury [facility] Pul[facility]Sleep [facility] Start: 06-20-2023 Orders Only Fiorella Sumner CARETAKER RESORT-CODING MACHINE OPERATOR Work Phone: [facility] Comment on above: Accelerated junction al rhythm (Primary Dx); Syncope, unspecified syncope type Start: 06-19-2023 Orders Only King Abraham aida DO Work Phone: [facility] Start: 06-13-2023 Telephone encounter Abby marlow MD Work Phone: [facility] - Sleep Disorders Comment on above: Sleep Lab (CPAP) change to video visi t ; reschd appt Start: 06-12-2023 End: 06-12-2023 Office outpatient visit 25 minutes Abby Berg MD Work Phone: [facility] Comment on above: Obstructive sleep ap lopez (Primary Dx); Intolerance of continuous positive airway pressure (CPAP) ventilation; Difficulty using continuous positive airway pressure (CPAP) full face mask; History of claustrophobia; Hot flashes; Daytime sleepiness Start: 06-12-2023 End: 06-12-2023 ambulatory [facility] Start: 06-08-2023 End: 06-08-2023 Office outpatient visit 15 minutes King Alexia Margaret DO Work Phone: [facility] Internal [facility] - Family Medicine Comment on above: Type 2 diabetes stefan itus with diabetic polyneuropathy, with long-term current use of insulin ([facility]) (Primary Dx); Hyperglycemia Start: 06-08-2023 End: 06-08-2023 ambulatory [facility] Start: 06-07-2023 End: 06-07-[address] [facility] Start: 06-07-2023 End: 06-07-[address] [facility] Start: 06-06-2023 End: 06-06-2023 Emergency department patient visit [facility] Start: 06-06-2023 End: 06-06-2023 ambulatory Rainer Barerra pyco Other Start: 06-06-2023 Follow-up encounter Rainer Larsen [employer] [facility] Start: 05-31-2023 End: 05-31-2023 Emergency department patient visit [facility] Start: 05-23-2023 End: 05-23-2023 ambulatory Rainer Barrera Other pyco Other Start: 05-23-2023 Telephone encounter Rainer Larsen [facility] Start: 05-22-2023 End: 05-22-[address] [facility] Start: 05-16-2023 End: 05-16-2023 Office outpatient visit 25 minutes Fiorella Sumner CARETAKER RESORT-CODING MACHINE OPERATOR Work Phone: [facility] Comment on above: PFO (patent foramen ovale) (Primary Dx); Mixed hyperlipidemia; Cigarette smoker; Palpitations; Lightheadedness; Syncope, unspecified syncope type Start: 05-16-2023 End: 05-16-2023 ambulatory [facility] Start: 05-16-2023 End: 05-16-2023 ambulatory JESU NEAVREZ Not Available Start: 05-07-2023 End: 05-07-2023 ambulatory [facility] Start: 05-07-2023 Encounter for other preprocedural examination JESU NEVAREZ [facility] Start: 05-07-2023 End: 05-07-2023 ambulatory JESU NEVAREZ Not Available Start: 03-27-2023 End: 03-27-2023 ambulatory Rainer Barrera Other pyco Other Start: 03-27-2023 Follow-up encounter Rainer babb [facility] Start: 01-11-2023 End: 01-11-2023 Patient encounter procedure CARETAKER RESORT Nawaf Ean Work Phone: [facility] Work Phone: Start: 01-11-2023 End: 01-11-2023 ambulatory CARETAKER RESORTSheridan Mckoy Work Phone: [facility] Work Phone: Start: 12-27-2022 Registered Recurring DILIA Venu nimo Mckoy Work Phone: [facility] Work Phone: Start: 12-27-2022 End: 12-27-2022 ambulatory Rainer Barrera Other pyco Other Start: 12-27-2022 Telephone encounter Rainer babb [facility] Start: 11-09-2022 End: 11-09-2022 Patient encounter procedure CARETAKER RESORT Nawaf Mckoy Work Phone: [facility] Work Phone: Start: 11-09-2022 End: 11-09-2022 ambulatory CARETAKER RESORT Nawaf Mckoy Work Phone: [facility] Work Phone: Start: 11-09-2022 Office outpatient vi sit 25 minutes Pratima Hill [facility] Neurosurgery Start: 11-02-2022 End: 11-02-2022 Patient encounter procedure DILIA Mckoy Work Phone: [facility] Work Phone: Start: 11-02-2022 End: 11-02-2022 ambulatory CARETAKER RESORT Nawaf Mckoy Work Phone: [facility] Work Phone: Start: 10-30-2022 End: 10-30-2022 ambulatory Dereck Dempsey Other pyco Other Start: 10-30-2022 Telephone encounter Dereckleah Kidddiff [facility] Start: 10-18-2022 End: 10-18-2022 ambulatory Nicole Zhang Other pyco Other Start: 10-18-2022 Office outpatient vi sit 15 minutes Nicole Zhang [facility] Start: 10-17-2022 End: 10-17-2022 ambulatory Jone Greenfield Other [place] [employer] Other Start: 10-17-2022 Telephone encounter Jone Greenfield [facility] [employer] [employer] Exped[facility] Start: 10-12-2022 End: 10-12-2022 Patient encounter procedure CARETAKER RESORT Nawaf Mckoy Work Phone: [facility] [place] Work Phone: Start: 09-28-2022 Office outpatient vi sit 25 minutes Pratima Hill [facility] Neuro[facility] Start: 09-28-2022 End: 09-28-2022 ambulatory CARETAKER RESORT Nawaf Mckoy Work Phone: [facility] Work Phone: Start: 09-28-2022 End: 09-28-2022 Patient encounter procedure CARETAKER RESORT Nawaf Mckoy Work Phone: [facility] [place] Work Phone: Start: 09-08-2022 End: 09-08-2022 Emergency department patient visit CARETAKER RESORT Nawaf Culveresme Work Phone: [facility] Work Phone: Start: 04-17-2022 End: 04-18-2022 ambulatory MD Constantino HOWELL Facility: [facility] Start: 04-17-2022 End: 04-17-2022 Patient encounter procedure Constantino HOWELL [facility] Start: 03-23-2022 End: 03-23-2022 Emergency department patient visit PCP NO [facility] Start: 03-22-2022 End: 03-22-2022 ambulatory Dereck Dempsey Other pyco Other Start: 03-22-2022 Telephone encounter Dereck smith [facility] Start: 03-15-2022 End: 03-15-2022 ambulatory PCP NO [facility] Start: 03-14-2022 End: 03-14-2022 Emergency department patient visit KAREN SPAULDING [facility] Start: 03-14-2022 End: 03-14-2022 Emergency department patient visit Karen Spaulding MD Work Phone: [facility] ED Comment on above: Syncope and collapse (Primary Dx); Acute nonintractable headache, unspecified headache type; Right groin pain; Nausea and vomiting, unspecified vomiting type; Acute cystitis without hematuria Start: 03-13-2022 ambulatory [facility] Damico [facility] Start: 03-05-2022 End: 03-05-2022 Emergency department patient visit CARLITA RECINOS [facility] Start: 03-01-2022 End: 03-01-2022 ambulatory Lola Trevino Other pyco Other Start: 03-01-2022 IBT FOR OBESITY GROU P 2-10 30M Lola Trevino [facility] Start: 02-03-2022 End: 02-03-2022 ambulatory Dereck Dempsey Other [facility]co Other Start: 02-03-2022 Telephone encounter Dereck Roselyn Den brittele [facility] Start: 01-19-2022 End: 01-19-2022 ambulatory Dereck Weeksff Other pyco Other Start: 01-19-2022 Telephone encounter Dereck Roselyn Den smith [facility] Start: 01-18-2022 End: 01-18-2022 ambulatory Dereck Dempsey Other [facility] [place] Other Start: 01-18-2022 Follow-up encounter Dereck Roselyn Den sarah [facility] Start: 01-14-2022 End: 01-14-[address] JENSEN ARANDA Facility: Start: 12-06-2021 End: 12-06-2021 ambulatory Dereck Dempsey Other [facility] [place] Other Start: 12-06-2021 Nutrition therapy Dereck babb [facility] Start: 10-11-2021 ambulatory MD Constantino HOWELL [facility] ity: [facility] Start: 10-11-2021 End: 10-12-2021 ambulatory MD Constantino HOWELL Facility:[facility] Start: 10-11-2021 End: 10-11-2021 Patient encounter procedure Constantino HOWELL [facility] Start: 09-02-2021 End: 09-02-2021 ambulatory Saroj Nguyen Other [facility] [place] Other Start: 09-02-2021 Office outpatient vi sit 15 minutes Saroj Nguyen [facility] Neurosurgery Start: 08-02-2021 End: 08-02-2021 ambulatory Dereck Dempsey Other [facility] Other Start: 08-02-2021 Telephone encounter Dereck Dempsey Den sarah [facility] Start: 07-19-2021 End: 07-19-2021 ambulatory Te Shelton Other pyco Other Start: 07-19-2021 Office outpatient vi sit 25 minutes Te Shelton [facility] Start: 05-06-2021 End: 05-07-[address] CONSTANTINO HOWELL Facility:[facility] Start: 05-04-2021 End: 05-04-2021 ambulatory Saroj Nguyen Other pyco Other Start: 05-04-2021 Office outpatient vi sit 15 minutes Saroj Nguyen [facility] Neuro[facility] [place] Start: 04-27-2021 End: 04-27-2021 ambulatory Saroj Nguyen Other [facility]co Other Start: 04-27-2021 Telephone encounter Saroj Crenshaw [facility] Start: 04-20-2021 End: 04-21-2021 ambulatory MD Constantino HOWELL Facility:[facility] Start: 04-19-2021 End: 04-20-[address] CONSTANTINO HOWELL Facility:[facility] Start: 04-13-2021 End: 04-13-2021 ambulatory Saroj Nguyen Other pyco Other Start: 04-13-2021 Office outpatient vi sit 15 minutes Saroj Nguyen [facility] Neurosurgery Start: 03-03-2021 ambulatory NAWAF MCKOY Facility:[facility] Start: 07-11-2017 Ambulatory MINNIE WARNER [facility] Start: 07-11-2017 End: 07-23-2017 Ambulatory MINNIE WARNER [facility] Start: 06-25-2017 Ambulatory MINNIE WARNER [facility] Start: 06-25-2017 Ambulatory MINNIE WARNER [facility] Start: 05-16-2017 End: 05-17-2017 Ambulatory DOUGLAS ([place]) [facility] Start: 03-15-2017 End: 03-15-2017 Ambulatory [facility] Procedures Date Procedure Procedure Detail Performing Clinician Start: 11-13-2023 Follow-up visit Follow-up JESU LEWIS Start: 07-24-2023 Adult depression screening assessment King SaezPhonetime DO Work Phone: Start: 07-03-2023 Adult depression screening assessment King SaezPhonetime DO Work Phone: Start: 06-08-2023 Adult depression screening assessment King SaezPhonetime DO Work Phone: Start: 05-16-2023 Follow-up visit Follow-up FIORELLA SUMNER Start: 04-02-2023 Microalbumin [Mass/volume] in Urine by Test strip King SaezFutubank Work Phone: Start: 02-23-2023 Adult depression screening assessment Fiorella Sumner CARETAKER RESORT-CODING MACHINE OPERATOR Work Phone: Start: 01-11-2023 Ultrasound elastogra phy of liver CARETAKER RESORTSheridan Mckoy Work Phone: Start: 11-09-2022 Plain X-ray of right hip DILIA Mckoy Work Phone: Start: 11-02-2022 Dual energy X-ray absorptiometry DILIA Mckoy Work Phone: Start: 10-12-2022 MRI of lumbar spine with contrast DILIA Mckoy Work Phone: Start: 09-28-2022 X-ray of lumbar spin e, six views including bending views DILIA Mckoy Work Phone: Start: 09-08-2022 CT of lumbar spine without contrast CARETAKER RESORT Nawaf Mckoy Work Phone: Start: 03-14-2022 Urinalysis [...] H/O: surgery S/P nasal septoplasty Yvrose Sumner CARETAKER RESORT-CODING MACHINE OPERATOR Work Phone: Start: 06-20-2018 History of tonsillectomy S/P tonsill ectomy Fiorella Sumner CARETAKER RESORT-CODING MACHINE OPERATOR Work Phone: Start: 07-10-2016 section Rick HOWELL [...] Td Vaccines (3 - Td or Tdap) [facility] Start: 01-11-2032 DTaP/Tdap/Td vaccine (3 - Td or Tdap) DTaP/Tdap/Td vaccine (3 - Td or Tdap) [facility] Start: 08-22-2024 Adult BMI Screening Adult BMI Screening [facility] Start: 08-20-2024 Tobacco Screening Tobacco Screening [facility] Start: 08-19-2024 Adult BMI Screening Adult BMI Screening [facility] Start: 08-19-2024 Tobacco Screening Tobacco Screening [facility] Start: 07-23-2024 Adult BMI Screening Adult BMI Screening [facility] Start: 07-23-2024 Depression Screening Depression Screening [facility] Start: 07-23-2024 Tobacco Screening Tobacco Screening [facility] Start: 07-03-2024 Adult BMI Screening Adult BMI Screening [facility] Start: 07-03-2024 Depression Screening Depression Screening [facility] Start: 07-03-2024 Tobacco Screening Tobacco Screening [facility] Start: 06-12-2024 Adult BMI Screening Adult BMI Screening [facility] Start: 06-12-2024 Tobacco Screening Tobacco Screening [facility] Start: 06-08-2024 Adult BMI Screening Adult BMI Screening [facility] Start: 06-08-2024 Depression Screening Depression Screening [facility] Start: 06-08-2024 Tobacco Screening Tobacco Screening [facility] Start: 05-16-2024 Tobacco Screening Tobacco Screening [facility] Start: 05-07-2024 Adult BMI Screening Adult BMI Screening [facility] Start: 04-02-2024 Urine screening for protein Urine Microalbumin [facility] Start: 02-24-2024 Adult BMI Follow Up Plan Adult BMI Follow Up Plan [facility] Start: 02-24-2024 Depression Screening Depression Screening [facility] Start: 01-20-2024 Influenza vaccination Influenza Vaccine [facility] Start: 11-09-2023 End: 11-09-2023 Patient encounter procedure 11/09/2023 8:30 AM EDT Office Visit [facility] [address] [facility] [place] [phone] Carol Urbina MD [address] [place] [address], [address] [phone] [facility] Start: 10-18-2023 End: 10-18-2023 Clinical Support [facility] Start: 09-06-2023 End: 09-06-2023 Patient encounter procedure 09/06/2023 7:45 AM EDT Office Visit [facility] [address] [facility] [address] [place] [address] Rublaitus, Tiffanie, CARETAKER RESORT-CODING MACHINE OPERATOR [address] [address] [facility] Start: 08-30-2023 End: 08-30-2023 Patient encounter procedure 08/30/2023 2:00 PM EDT Office Visit [facility] [address] [place] [phone] King Robles DO [address] [place] [address] [facility] Start: 08-21-2023 End: 08-21-2023 Patient encounter procedure 08/21/2023 2:15 PM EDT Office Visit [facility] [address] [place] [phone] King Robles DO [address], [place] [address] [facility] Start: 08-13-2023 End: 08-13-2023 Patient encounter procedure 08/13/2023 10:45 AM EDT Office Visit [facility] [address] [facility] [address] [place] [phone] Rublaitus, Tiffanie, CARETAKER RESORT-CODING MACHINE OPERATOR [address] [facility] [address] [place] [address] [facility] Start: 07-24-2023 End: 07-24-2023 Patient encounter procedure 07/24/2023 2:20 PM EST Office Visit [facility] [address] [place] [phone] King Robles, DO [address] [place] [address] [facility] Start: 07-17-2023 End: 07-17-2023 Patient encounter procedure 07/17/2023 8:30 AM EST Office Visit [facility] [address] [place] [phone] Abby Berg MD [address] [facility] [address] [place] [address] [facility] Start: 07-03-2023 End: 07-03-2023 Patient encounter procedure 07/03/2023 1:30 PM EST Office Visit [facility] [address] [place] [phone] King Robles DO [address] [place] [address] [facility] Start: 06-20-2023 End: 06-20-2024 Wireless Telemetry (In Office) Ledy Work Phone: Comment on above: Expected: 06/20/2023, Expires: Start: 06-15-2023 End: 06-15-2023 Patient encounter procedure 06/15/2023 1:00 PM EST Office Visit [facility] [address] [facility] [place] [phone] Carol Urbina MD [address] [place] [address], [address] [phone] [facility] Start: 06-12-2023 End: 06-12-2023 Patient encounter procedure 06/12/2023 1:00 PM EST Office Visit [facility] [address] [place] [phone] Abby Berg MD [address] [facility], [address] [address] [facility] Start: 06-07-2023 End: 06-07-2023 Patient encounter procedure [facility] Start: 05-24-2023 End: 05-24-2023 Admission to same day surgery center 05/24/2023 7:30 AM EST - 05/24/2023 11:30 AM EST Surgery [facility] [address] [place] [phone] Jesu Nevarez, DPM [address] [place], [place] [id number] [employer] [54591 (CPT )] [facility] Comment on above: [employer] [21628 (CPT )] Start: 05-24-2023 End: 05-24-2023 Anesthesia consultation 05/24/2023 7:30 AM EST Anesthesia Event [facility] [address] [place] [phone] Iker Baca, DO [address] [facility] [place] [address] [facility] Start: 05-24-2023 End: 05-24-2023 Arthrd midtarsl/tarsometatarsal mult/transvrs [employer] right foot 1st & 2nd TMT joint dislocation, post-traumatic arthritis, equinus contracture 05/24/2023 7:30 AM EST [facility] Start: 05-24-2023 End: 05-24-2023 Gastrocnemius recession REPAIR MUSCLE RECESSION GASTROCNEMIUS right foot 1st & 2nd TMT joint dislocation, post-traumatic arthritis, equinus contracture 05/24/2023 7:30 AM EST [facility] Start: 05-24-2023 End: 05-24-2023 HARVEST BONE GRAFT LOWER EXTREMITY HARVEST BONE GRAFT LOWER EXTREMITY right foot 1st & 2nd TMT joint dislocation, post-traumatic arthritis, equinus contracture 05/24/2023 7:30 AM EST [facility] Start: 05-24-2023 Subsequent hospital visit by physician 05/24/2023 7:30 AM EST Hospital Encounter [facility] [address] [place] [phone] Jesu Nevarez, DPM [address] [place] [address] [facility] Start: 05-16-2023 End: 05-16-2024 Echo complete W/O contrast Echo complete W/O contrast Echocardiography Routine PFO (patent foramen ovale) Mixed hyperlipidemia Cigarette smoker Palpitations Syncope, unspecified syncope type Expected: 05/16/2023, Expires: 05/16/2024 [facility] Comment on above: Expected: 05/16/2023, Expires: Start: 05-16-2023 End: 05-16-2024 [email or web address] Comment on above: Expected: 05/16/2023, Expires: Start: 05-16-2023 End: 05-16-2024 US Carotid arteries - bilateral Vas carotid duplex bilateral Vascular Ultrasound Routine Lightheadedness Syncope, unspecified syncope type Expected: 05/16/2023, Expires: 05/16/2024 [email or web address] Comment on above: Expected: 05/16/2023, Expires: Start: 05-16-2023 End: 05-16-2024 Wireless Telemetry (In Office) Wireless Telemetry (In Office) Cardiac Services Routine PFO (patent foramen ovale) Palpitations Lightheadedness Expected: 05/16/2023, Expires: 05/16/2024 [facility] Work Phone: Comment on above: Expected: 05/16/2023, Expires: Start: 01-19-2023 COVID-19 Vaccine ( season) COVID-19 Vaccine ( season) [facility] Start: 01-11-2023 [facility] Start: 03-30-2022 End: 03-30-2022 Patient encounter procedure 03/30/2022 Office Visit Internal Medicine Linette Zapata MD [address] [place] [address] [facility] Start: 03-15-2022 End: 03-15-2022 Patient encounter procedure 03/15/2022 Office Visit Orthopedic Surgery [facility] Start: 12-19-2021 Influenza vaccination Flu vaccine (#1) [facility] Start: 2018 Screening for malignant neoplasm of cervix [facility] Start: 2009 Screening for malignant neoplasm of cervix Pap smear [facility] Start: 2006 Diabetic foot examination Diabetic Foot Exam [facility] Start: 2006 Hepatitis C screening Hepatitis C screen [facility] Start: 11-30-2003 HIV screening HIV screen [facility] Start: 2000 Depression Screen Depression Screen [facility] Start: 1994 Pneumococcal 0-64 years Vaccine (1 - PCV) Pneumococcal 0-64 years Vaccine (1 - PCV) [facility] Start: 1989 Varicella vaccine (1 of 2 - 2-dose childhood series) Varicella vaccine (1 of 2 - 2-dose childhood series) [facility] Start: 06-01-1989 COVID-19 Vaccine (#1) COVID-19 Vaccine (#1) [facility] Start: 1988 Glaucoma screening Diabetic Ophthalmology Exam [facility] End: 08-22-2024 C difficile by PCR C difficile by PCR Lab Routine Diarrhea, unspecified type 1 Occurrences starting 08/23/2023 until 08/22/2024 [place] Phone: Comment on above: 1 Occurrences starting 08/23/2023 until 08/22/2024 End: 08-07-2024 C-reactive protein C-reactive protein Lab Routine Generalized abdominal pain Lower abdominal pain 1 Occurrences starting 08/08/2023 until 08/07/2024 [facility]: 1 Occurrences starting 08/08/2023 until 08/07/2024 End: 08-07-2024 Calprotectin, F Calprotectin, F Lab Routine Generalized abdominal pain Abnormal CT of the abdomen Lower abdominal pain Diarrhea, unspecified type 1 Occurrences starting 08/08/2023 until 08/07/2024 [facility] above: 1 Occurrences starting 08/08/2023 until 08/07/2024 End: 08-07-2024 CBC W Auto Differential panel - Blood CBC auto differential Lab Routine Generalized abdominal pain Hx of iron deficiency 1 Occurrences starting 08/08/2023 until 08/07/2024 [facility]: 1 Occurrences starting 08/08/2023 until 08/07/2024 End: 08-07-2024 Colonoscopy Colonoscopy GI Routine Generalized abdominal pain Abnormal CT of the abdomen Lower abdominal pain Diarrhea, unspecified type 1 Occurrences starting 08/08/2023 until 08/07/2024 [facility]: 1 Occurrences starting 08/08/2023 until 08/07/2024 End: 08-07-2024 Comprehensive metabolic 2000 panel - Serum or Plasma Comprehensive metabolic panel Lab Routine Generalized abdominal pain 1 Occurrences starting 08/08/2023 until 08/07/2024 [facility] Comment on above: 1 Occurrences starting 08/08/2023 until 08/07/2024 End: 08-07-2024 Esophagogastroduodenoscopy EGD GI Routine Nausea and vomiting, unspecified vomiting type Generalized abdominal pain Abnormal CT of the abdomen Dark emesis Chronic GERD Duodenitis 1 Occurrences starting 08/08/2023 until 08/07/2024 [facility] Comment on above: 1 Occurrences starting 08/08/2023 until 08/07/2024 End: 08-07-2024 Ferritin [Mass/volume] in Serum or Plasma Ferritin Lab Routine Generalized abdominal pain Hx of iron deficiency 1 Occurrences starting 08/08/2023 until 08/07/2024 [facility] Comment on above: 1 Occurrences starting 08/08/2023 until 08/07/2024 End: 08-07-2024 GI Panel(stool pathogen panel) GI Panel(stool pathogen panel) Lab Routine Generalized abdominal pain Abnormal CT of the abdomen Lower abdominal pain Diarrhea, unspecified type 1 Occurrences starting 08/08/2023 until 08/07/2024 [place] Work Phone: Comment on above: 1 Occurrences starting 08/08/2023 until 08/07/2024 End: 08-07-2024 Iron and TIBC Iron and TIBC Lab Routine Generalized abdominal pain Hx of iron deficiency 1 Occurrences starting 08/08/2023 until 08/07/2024 [facility] Comment on above: 1 Occurrences starting 08/08/2023 until 08/07/2024 End: 08-07-2024 Lipase [Enzymatic activity/volume] in Serum or Plasma Lipase Lab Routine Generalized abdominal pain 1 Occurrences starting 08/08/2023 until 08/07/2024 [facility] Comment on above: 1 Occurrences starting 08/08/2023 until 08/07/2024 End: 05-16-2024 Magnesium [Mass/volume] in Serum or Plasma Magnesium Lab Routine Palpitations 1 Occurrences starting 05/16/2023 until 05/16/2024 [facility] Comment on above: 1 Occurrences starting 05/16/2023 until 05/16/2024 End: 08-07-2024 O & P Screen O & P Screen Lab Routine Generalized abdominal pain Abnormal CT of the abdomen Lower abdominal pain Diarrhea, unspecified type 1 Occurrences starting 08/08/2023 until 08/07/2024 [facility] Comment on above: 1 Occurrences starting 08/08/2023 until 08/07/2024 Patient Education Degenerative D isc Disease ED [facility] Work Phone: Patient referral [facility] Work Phone: End: 06-12-2024 Polysomnography 4 or more parameters with PAP titration Polysomnography 4 or more parameters with PAP titration Sleep Center Routine Obstructive sleep apnea 1 Occurrences starting 06/12/2023 until 06/12/2024 [facility] Work Phone: Comment on above: 1 Occurrences starting 06/12/2023 until 06/12/2024 End: 08-07-2024 Stool Culture & E.Coli Shiga Like Toxin Stool Culture & E.Coli Shiga Like Toxin Microbiology Routine Generalized abdominal pain Abnormal CT of the abdomen Lower abdominal pain Diarrhea, unspecified type 1 Occurrences starting 08/08/2023 until 08/07/2024 [facility] above: 1 Occurrences starting 08/08/2023 until 08/07/2024 End: 05-16-2024 Thyroid profile includes TSH FT4 Thyroid profile includes TSH FT4 Lab Routine Palpitations 1 Occurrences starting 05/16/2023 until 05/16/2024 [facility] Comment on above: 1 Occurrences starting 05/16/2023 until 05/16/2024 Immunizations Immunization Date Immunization Notes Care Provider Janny patel 05-24-2023 Human Papillomavirus 9-valent vaccine King Furlong DO Work Phone: [facility] 05-24-2023 zoster vaccine recombinant King Furlong DO Work Phone: [facility] 04-02-2023 influenza, injectabl e, quadrivalent, preservative free Fiorella Sumner CARETAKER RESORT-CODING MACHINE OPERATOR Work Phone: [facility] 04-02-2023 influenza virus vacc ine, unspecified formulation Kiara Jese CARDIOVASCULAR SPECIALIST [facility] 09-20-2022 Hepatitis B vaccine (recombinant), CpG adjuvanted Fiorella Carlsonmax CARETAKER RESORT-CODING MACHINE OPERATOR Work Phone: [facility] 09-20-2022 Human Papillomavirus 9-valent vaccine Fiorella Carlsonmax CARETAKER RESORT-CODING MACHINE OPERATOR Work Phone: [facility] 09-20-2022 Pneumococcal Conjuga te 20-valent Fiorella Aldomax CARETAKER RESORT-CODING MACHINE OPERATOR Work Phone: [facility] 01-10-2022 tetanus toxoid, redu ernestine diphtheria toxoid, and acellular pertussis vaccine, adsorbed Fiorella Carlsonmax CARETAKER RESORT-CODING MACHINE OPERATOR Work Phone: [facility] 05-25-2021 COVID-19 mRNA, Mela grewal ([employer] 05-24-2021 COVID-19, mRNA, LNP- S, PF, 30mcg/0.3mL Dose Fiorellavero Carlsonmax CARETAKER RESORT-CODING MACHINE OPERATOR Work Phone: [facility] 06-24-2019 influenza virus vacc ine, unspecified formulation Fiorella Carlsonmax CARETAKER RESORT-CODING MACHINE OPERATOR Work Phone: [facility] 03-13-2018 Influenza, injectabl e, Madin Zavalla Canine Kidney, preservative free, quadrivalent Fiorella Aldomax CARETAKER RESORT-CODING MACHINE OPERATOR Work Phone: [facility] 01-21-2018 influenza, injectabl e, quadrivalent, preservative free Fiorella Aldonesheridan CARETAKER RESORT-CODING MACHINE OPERATOR Work Phone: [facility] 07-13-2016 tetanus toxoid, redu ernestine diphtheria toxoid, and acellular pertussis vaccine, adsorbed Fiorella Murnesheridan CARETAKER RESORT-CODING MACHINE OPERATOR Work Phone: [facility] Payers Date Payer Category Payer Medicaid [facility]ICA[facility] MEDICAID [id number] 2022-Present [address] [place] [address] [id number] 2022 Medicaid [id number] 1988 Unknown [id number] 2.16.840.1.418014.3.579.2.593 1988 Unknown [id number] 2.16.840.1.462152.3.579.2.593 1988 Unknown [id number] 2.16.840.1.745811.3.579.2.593 1988 Unknown [id number] 2.16.840.1.076634.3.579.2.593 1988 Unknown [id number] 2.16.840.1.917390.3.579.2.175 1988 Unknown [id number] 2.16.840.1.874672.3.579.2.175 1988 Unknown [id number] 2.16.840.1.927385.3.579.2.175 1988 Unknown [id number] 2.16.840.1.282995.3.579.2.177 1988 Unknown [id number] 2.16.840.1.780646.3.579.2.727 1988 Unknown [id number] 2.16.840.1.471310.3.579.2.727 1988 Unknown [id number] 2.16.840.1.282805.3.579.2.727 1988 Unknown [id number] 2.16.840.1.749114.3.579.2.1286 1988 Unknown [id number] 2.16.840.1.213505.3.579.2.1286 1988 Unknown [id number] 2.16.840.1.015651.3.579.2.1286 1988 Unknown [id number] 2.16.840.1.722180.3.579.2.1285 1988 Unknown [id number] 2.16.840.1.249691.3.579.2.1285 1988 Unknown [id number] 2.16.840.1.611057.3.579.2.1285 1988 Unknown [id number] 2.16840.1.649558.3.579.2.1285 1988 Unknown [id number] 2.16.840.1.072206.3.579.2.1285 1988 Unknown [id number] 2.840.1.204337.3.579.2.1285 1988 Unknown [id number] 2.16840.1.319989.3.579.2.1285 1988 Unknown [id number] 2840.1.304683.3.579.2.1285 1988 Unknown [id number] 2.840.1.010092.3.579.2.1285 1988 Unknown [id number] 2.840.1.675528.3.579.2.1285 1988 Unknown [id number] 2.840.1.879860.3.579.2.1285 1988 Unknown [id number] 2840.1.695261.3.579.2.1285 1988 Unknown [id number] 2.16840.1.778338.3.579.2.1285 1988 Unknown [id number] 2.16840.1.463561.3.579.2.1285 1988 Unknown [id number] 2.16840.1.395854.3.579.2.1258 1988 Unknown [id number] 2.840.1.777814.3.579.2.1258 1988 Unknown [id number] 2.16840.1.637669.3.579.2.1258 1988 Unknown [id number] 2.16840.1.600533.3.579.2.1258 1988 Unknown [id number] 2.16.840.1.291194.3.579.2.1258 1988 Unknown [id number] 2.16840.1.986057.3.579.2.1258 1988 Unknown [id number] 2.16.840.1.459206.3.579.2.1258 1988 Unknown [id number] 2.16840.1.824529.3.579.2.1258 1988 Unknown [id number] 2.16840.1.243580.3.579.2.1258 1988 Unknown [id number] 2.840.1.216366.3.579.2.1258 1988 Unknown [id number] 2.840.1.426229.3.579.2.1258 1988 Unknown [id number] 2.840.1.684010.3.579.2.1285 1988 Unknown [id number] 2.840.1.448471.3.579.2.1285 1988 Unknown [id number] 2840.1.185476.3.579.2.1285 1988 Unknown [id number] 2.16840.1.822015.3.579.2.1285 1988 Unknown [id number] 2.16840.1.919408.3.579.2.1285 1988 Unknown [id number] 2.16840.1.247036.3.579.2.1285 1988 Unknown [id number] 2.16840.1.121438.3.579.2.1285 1988 Unknown [id number] 2.16.840.1.144115.3.579.2.1285 1988 Unknown [id number] 2.16.840.1.706021.3.579.2.1285 1988 Unknown [id number] 2.16.840.1.985588.3.579.2.1285 1988 Unknown [id number] 2.16.840.1.406629.3.579.2.1285 1988 Unknown [id number] 2.16.840.1.872524.3.579.2.1285 1988 Unknown [id number] 2.16.840.1.639473.3.579.2.1285 1988 Unknown [id number] 2.16.840.1.788609.3.579.2.1285 1988 Unknown [id number] 2.16.840.1.708282.3.579.2.1285 1988 Unknown [id number] 2.16.840.1.413301.3.579.2.1285 1988 Unknown [id number] 2.16.840.1.174663.3.579.2.1285 1988 Unknown [id number] 2.16.840.1.100069.3.579.2.1285 1988 Unknown [id number] 2.16.840.1.214726.3.579.2.1285 1988 Unknown [id number] 2.16.840.1.602340.3.579.2.1285 1988 Unknown [id number] 2.16.840.1.677966.3.579.2.1285 1988 Unknown [id number] 2.16.840.1.364096.3.579.2.1285 1988 Unknown [id number] 2.16.840.1.760348.3.579.2.[facility]ly [facility] Self-pay [id number] 1959 Unknown [id number] 2.16.840.1.715860.19 1959 Unknown [id number] Self-pay Self Pay [id number] Social History Date Type Detail Facility Start: 04-20-2021 Tobacco smoking status Heavy tobacco smoker (finding) [facility] Other Start: 04-02-2023 End: 08-21-2023 Sex Assigned At Female [facility] Other Start: 07-27-2015 Tobacco smoking status NEIS Smokes tobacco daily [facility] Phone: Start: 06-23-2002 End: 07-14-2022 History of tobacco use Cigarette Smoker [facility] Phone: Start: 07-27-2015 End: 04-02-2023 Cigarettes smoked current (pack per day) - Reported 0.5 [facility] Phone: Start: 07-27-2015 End: 04-02-2023 Tobacco use and exposure Smokeless tobacco non-user [facility] Phone: Start: 03-14-2022 End: 08-21-2023 Alcohol intake Current drinker of alcohol (finding) [facility] Phone: Start: 1988 Sex Assigned At Not on file [facility] Phone: Start: 03-04-2022 End: 03-14-2022 Exposure to SARS-CoV-2 (event) Not sure [facility] Phone: Start: 1988 Sex Assigned At Female [facility] Start: 06-23-2002 End: 07-14-2022 Tobacco smoking status NHIS Smoker (finding) [facility] Start: 04-02-2023 Tobacco smoking status NEIS Ex-smoker [facility] Has the [employer], [place], [employer], or [employer] threatened to shut off services in your home in past 12Mo Yes [facility] Do you belong to any clubs or organizations such as mu-ism groups, unions, fraternal or athletic groups, or school groups? No [facility] Are you now , , , , never or living with a partner? [facility] How often to you hav e a drink containing alcohol? Monthly or less [facility] How many standard dr inks containing alcohol do you have on a typical day? 1 or 2 [facility] How often do you hav e 6 or more drinks on 1 occasion? Never [facility] How hard is it for y ou to pay for the very basics like food, housing, medical care, and heating Somewhat hard [facility] Adolescent depressio n screening assessment 0 [facility] Do you feel stress - tense, restless, nervous, or anxious, or unable to sleep at night because your mind is troubled all the time - these days [OSQ] Rather much [facility] Start: 06-12-2018 Alcohol Comment rarely [facility] Start: 02-17-2020 Gender identity Identifies as female gender (finding) [facility] Start: 02-17-2020 Sexual orientation Bisexual (finding) [facility] tem Medical Equipment Procedure Code Equipment Code Equipment Origin al Text Equipment Identifier Dates Fusion, spine, lumbar, XLIF XLIF 1 LEVEL MAS REDUCTION FDA Start: 09-23-2019 Fusion, spine, lumbar, XLIF Bone-screw internal spinal fixation system, non-sterile ()[id number] FDA Start: 09-23-2019 Fusion, spine, lumbar, XLIF Spinal fusion graft kit ()[id number] FDA Start: 09-23-2019 Fusion, spine, lumbar, XLIF Bone matrix implant, human-derived ()[id number] FDA Start: 09-23-2019 Fusion, spine, lumbar, XLIF Bone-screw internal spinal fixation system, non-sterile ()[id number] FDA Start: 09-23-2019 Fusion, spine, lumbar, XLIF Bone-screw internal spinal fixation system, non-sterile ()[id number] FDA Start: 09-23-2019 Fusion, spine, lumbar, XLIF Spinal fusion graft kit ()[id number] FDA Start: 04-22-2020 Fusion, spine, lumbar, XLIF Bone matrix implant, human-derived ()[id number] FDA Start: 04-22-2020 Fusion, spine, lumbar, XLIF Metallic spinal fusion cage, non-sterile ()[id number] FDA Start: 04-22-2020 Fusion, spine, lumbar, XLIF Metallic spinal fusion cage, non-sterile ()[id number] FDA Start: 09-23-2019 Fusion, spine, lumbar, XLIF [...] 1 LEVEL MAS REDUCTION FDA Start: 09-23-2019 [id number] Start: 01-03-2022 Mesh Pco Vntrl Ptch 4.6cm Rpl [id number] FDA Start: 02-27-2020 Goals Date [...] EGD and CLN by Dr. Carreno at [facility], MAC, ASA 3 w/ cardiac clearance w/ large volume prep infectious stool studies need to be resulted prior to scheduling F/u 3-4 mo after procedures with Dr. Carreno Obtain prior EGD and CLN reports and path documented in this encounter [facility] 08-08-2023 Telephone encounter Note Checkout Instructions for Telemedicine Video Visit on 08/08/23: Labs Stool tests EGD and CLN by Dr. Carreno at [facility]/[place], MAC, ASA 3 w/ cardiac clearance w/ large volume prep infectious stool studies need to be resulted prior to scheduling F/u 3-4 mo after procedures with Dr. Carreno Obtain prior EGD and CLN reports and path [facility] 08-08-2023 History of Presen t illness Narrative [facility] New Patient Visit - History & Physical [...] via Real-time Synchronous Audiovisual Patient Location: in [place] Video Visit Consent Statement: I discussed risks, [...] that there are some limitations compared to [id number] evaluations. We elected to proceed. CHIEF COMPLAINT: [...] for initial evaluation. Xiang was hospitalized at [facility] from 06/27-06/30/23 for intractable nausea and brown [...] manages her diabetic medications. She follows with [facility] cardiology. HISTORY OF PRESENT ILLNESS: Pt reports EGD many years ago; patient reports showed reflux Pt reports 2014 Colonoscopy - polyps removed Pt reports [address] Gaytan in [facility] - GI - polyps - recommended every [...] Anemia Anxiety Arrhythmia Asthma Bipolar 1 disorder ([facility]) Bipolar disorder, unspecified ([facility]) Cataract Chronic headache Chronic kidney disease kidney stone Chronic low back pain Dental disease edentulous Depression Diabetes mellitus type 2, controlled ([facility]) Fibromyalgia Folliculitis GERD (gastroesophageal reflux disease) Gestational diabetes mellitus (GDM) Hyperlipidemia Hypomagnesemia Moderate obstructive sleep apnea Neurogenic bladder Obesity Palpitations Paresthesia PFO (patent foramen ovale) PONV (postoperative nausea and vomiting) Prolonged emergence from general anesthesia Spinal stenosis Stroke ([facility]) Visual impairment glasses PREVIOUS ENDOSCOPY OR X-RAY PROCEDURES: As noted in the HPI Past Surgical History: Past Surgical History: Procedure Laterality Date BACK SURGERY N/A 07/10/2016 Performed by Sue Vásquez MD at [facility] OR SECTION 2006 CHOLECYSTECTOMY 2006 POSTERIOR LAMINECTOMY / DECOMPRESSION LUMBAR SPINE 08/2014 REPAIR CSF LEAK CRANIAL REPAIR CSF LEAK CRANIAL REPAIR HERNIA UMBILICAL N/A 02/27/2020 Performed by Micha Leon MD at [facility] RESECTION SUBMUCOSAL Bilateral 06/13/2018 Performed by Natali Shea MD at [facility] SEPTOPLASTY N/A 06/13/2018 Performed by Natali Shea MD at [facility] TONSILLECTOMY ADENOIDECTOMY Bilateral 06/13/2018 Performed by Natali Shea MD at [facility] TUBAL LIGATION WOUND EXPLORATION 08/2014 Current Medications: [...] the electronic medical record. ALLERGIES: Calderón, Penicillins, [place], Ibuprofen, Amoxicillin, Duricef [cefadroxil], Nsaids (non-steroidal anti-inflammatory drug), [place] dye, Verapamil, Dilaudid [hydromorphone], and Vicodin [hydrocodone-acetaminophen] [...] (last in 2014) with polyps removed at [facility]; no reports available for review. She does [...] EGD and Colonoscopy by Dr. Carreno at [facility] 3 INFECTIOUS STOOL STUDIES NEED TO [...] ROSEMARY Garza [facility] [address], [address] [place] [address] Fax: [phone] ELIDA/Surjit Patient in agreement with plan of care as outlined above. Total time spent was 70 minutes: Preparing to see the patient (e.g., review of tests) Obtaining and/or reviewing separately obtained history Performing a medically appropriate examination and/or evaluation Counseling and educating the patient/family/caregiver Ordering medications, tests, or procedures ROSEMARY Garza 08/08/23 1056 documented in this encounter [facility] 08-08-2023 Instructions ROSEMARY Garza - 08/08/2023 10:00 [...] be sent through Care Everywhere.Upper GI Endoscopy (Syrian)Colonoscopy (Syrian)Acid reflux and gastroesophageal reflux disease in adults (Syrian)Acid Reflux and GERD in Adults Discharge Instructions (Syrian)documented in this encounter [facility] 07-24-2023 History of Presen t illness Narrative [...] polyneuropathy, with long-term current use of insulin ([facility]) - tirzepatide (MOUNJARO) 7.5 mg/0.5 mL pen [...] prescription for her [facility]23 Miscellaneous Notes Saw MARLEY 05/16/23. Phoned [...] to update condition documented [facility] this encounter [facility] 07-09-2023 Telephone encounter Note Saw MARLEY 05/16/23. Phoned Event monitor result to pt. (Benign). States needs clearance for foot tendon repair surgery by Dr Nevarez. No formal letter rec'd re surgery. Will need to hold ASA 5-7 days prior. Please review/ advise. Thanks. [facility] 07-09-2023 Telephone encounter Note She has had 2 hospitalizations this month/dc'd on ATBs, and is to have a colonoscopy. Recent monitor was benign, and no further accelerated junctional rhythm. ECHO stable, and no noted CAD by CTA coronaries. If recovered from stays/completed colonoscopy, and no further syncope... Low risk, may hold ASA 5-7 days. jm [facility] 07-09-2023 Telephone encounter Note LMOM for pt to return call to update condition [facility] 07-03-2023 History of Presen t illness Narrative [...] Objective Physical Exam Exam conducted with a online marketing director present (sister). Constitutional: Appearance: She is morbidly [...] depressive disorder, recurrent severe without psychotic features ([facility]) Will add Vraylar 1.5 mg daily and recheck in 2-3 weeks. Bipolar I disorder, single manic episode, severe, with psychosis ([facility]) Will add Vraylar 1.5 mg daily and recheck in 2-3 weeks. Colitis Continue antibiotics. She will need a colonoscopy when she is feeling better. Try crushing the Flagyl and putting it in food. Elevated LFTs Recheck LFTs with next labs Degenerative lumbar spinal stenosis Stable. Type 2 diabetes mellitus with diabetic polyneuropathy, with long-term current use of insulin ([facility]) Her fasting blood sugars were reviewed. They are coming down since she had her steroid burst in late May. Continue current regimen Accelerated junctional rhythm She is wearing heart monitor currently. Follow up with Cardiology documented in this encounter [facility] 06-25-2023 Miscellaneous Notes ----- Message from Abby Berg MD sent at 06/12/2023 2:20 PM EST ----- Do you mind following up with her in a week or so about the Dreamwear nasal mask in the interim to titration? Thank you! LVM to follow up with pt regarding Dreamwear nasal mask documented in this encounter [facility] 06-25-2023 Telephone encounter Note ----- Message from Abby Berg MD sent at 06/12/2023 2:20 PM EST ----- Do you mind following up with her in a week or so about the Dreamwear nasal mask in the interim to titration? Thank you! [facility] 06-25-2023 Telephone encounter Note LVM to follow up with pt regarding Dreamwear nasal mask [facility] 06-13-2023 Miscellaneous Notes Patient's appointment needs to [...] to soonest available with Dr. Urbina in [place] office on 11/09/23 8:30 and was added to wait list per her request. Informed her she can call our office a week before she runs out of medication and we can send message on to clinical staff for her request - she voiced understanding. documented in this encounter [facility] 06-13-2023 Telephone encounter Note Patient's appointment needs to be rescheduled at this time due to provider out of clinic. Called and left message Date: 06/15/23 Provider: Dr Urbina Rescheduling Instructions:next available in clinic [facility] 06-13-2023 Telephone encounter Note 2nd attempt to reschedule an appointment Left message for patient to call back to reschedule an appointment. Please reschedule patient if we receive a call back. [facility] 06-13-2023 Telephone encounter Note Received call today 06/18/23 11:22 from patient in regard to previous message and she rescheduled to soonest available with Dr. Urbina in [place] office on 11/09/23 8:30 and was added to wait list per her request. Informed her she can call our office a week before she runs out of medication and we can send message on to clinical staff for her request - she voiced understanding. [facility] 06-13-2023 Miscellaneous Notes 06/12 received CPAP order 06/13 Called PT LM to schedule sleep study. CPAP order and 06/12 Brinda notes in epic documented in this encounter [facility] 06-13-2023 Telephone encounter Note 06/12 received CPAP order 06/13 Called PT LM to schedule sleep study. CPAP order and 06/12 Brinda notes in epic [facility] 06-12-2023 History of Presen t illness Narrative [...] having a compliance requirement to her awareness. [place] Sleepiness Scale: 10/03/2022 9:00 AM 06/12/2023 1:00 PM [place] Sleepiness Scale Sitting and Reading 2 2 [...] polyneuropathy, with long-term current use of insulin ([facility]) Diabetic polyneuropathy associated with type 2 diabetes mellitus ([facility]) Chest pain Mixed hyperlipidemia Cigarette smoker Umbilical hernia Spondylopathy, unspecified Sciatica Lumbar post-laminectomy syndrome Lumbago with sciatica, right side Irritable bowel syndrome Internal derangement of left knee History of manic depressive disorder Hearing loss Posttraumatic stress disorder Generalized anxiety disorder Degenerative lumbar spinal stenosis Compulsive behavior Chronic maxillary sinusitis Chondromalacia patellae Bipolar disorder ([facility]) Bilateral sensorineural hearing loss Conductive hearing loss, bilateral Bilateral carpal tunnel syndrome Asthma Spondylolisthesis, acquired Arthritis of right knee Neurogenic bladder Obstructive sleep apnea syndrome Lightheadedness Syncope Arthropathy of lumbar facet joint Past Medical History: Diagnosis Date Anemia Anxiety Arrhythmia Asthma Bipolar 1 disorder ([facility]) Bipolar disorder, unspecified ([facility]) Cataract Chronic headache Chronic kidney disease kidney stone Chronic low back pain Dental disease edentulous Depression Diabetes mellitus type 2, controlled ([facility]) Fibromyalgia Folliculitis GERD (gastroesophageal reflux disease) Gestational diabetes mellitus (GDM) Hyperlipidemia Hypomagnesemia Moderate obstructive sleep apnea Neurogenic bladder Obesity Palpitations Paresthesia PFO (patent foramen ovale) PONV (postoperative nausea and vomiting) Prolonged emergence from general anesthesia Spinal stenosis Stroke ([facility]) Visual impairment glasses Past Surgical History: Procedure Laterality Date BACK SURGERY N/A 07/10/2016 Performed by Sue Vásquez MD at [facility] OR SECTION 2007 CHOLECYSTECTOMY 2007 POSTERIOR LAMINECTOMY / DECOMPRESSION LUMBAR SPINE 08/2014 REPAIR CSF LEAK CRANIAL REPAIR CSF LEAK CRANIAL REPAIR HERNIA UMBILICAL N/A 02/27/2020 Performed by Micha Leon MD at [facility] RESECTION SUBMUCOSAL Bilateral 06/13/2018 Performed by Natali Shea MD at [facility] SEPTOPLASTY N/A 06/13/2018 Performed by Natali Shea MD at [facility] TONSILLECTOMY ADENOIDECTOMY Bilateral 06/13/2018 Performed by Natali Shea MD at [facility] TUBAL LIGATION WOUND EXPLORATION 08/2014 ALLERGIES: Allergies Allergen Reactions Calderón Anaphylaxis Penicillins Anaphylaxis [place] Hives Ibuprofen Hives and Vomiting Amoxicillin Duricef [Cefadroxil] Nsaids (Non-Steroidal Anti-Inflammatory Drug) [place] Dye Verapamil Dizziness Dilaudid [Hydromorphone] Hives Vicodin [...] 0 min Stress: Stress Concern Present (04/02/2023) [place] [employer] Occupational Health - Occupational Stress Questionnaire Feeling of Stress : Rather much Social Connections: Moderately Isolated (04/02/2023) Social Connection and Isolation Panel [NHANES] Frequency of Communication with Friends and Family: More than three times a week Frequency of Social Gatherings with Friends and Family: More than three times a week Attends Gnosticist Services: More than 4 times per year [...] not to drive if sleepy, and to picker/puller if sleepiness occurs while driving. Above plan as discussed with the patient who acknowledged understanding and agreement. Abby Berg MD [facility] [address] [place] [id number] documented in this encounter [facility] 06-08-2023 History of Presen t illness Narrative [...] Objective Physical Exam Exam conducted with a online marketing director present (Boyfriend). Constitutional: General: She is not [...] polyneuropathy, with long-term current use of insulin ([facility]) - flash glucose sensor (FREESTYLE MAKSIM 2 [...] in the morning. documented in this encounter [facility] 06-06-2023 Evaluation note Encounter Date Diagnosis Assessment [...] of polyuria, polydipsia -Recommend ER evaluation at [facility]. She declined and would like to be evaluated closer to home -Offered to decrease dose to 2.5 mg once weekly given recent symptoms. Patient declined and would like to continue 5 mg once weekly -She is mother of 4, in school for bachelor's degree-Follow up in clinic in 8 weeksThis note was created with voice recognition software. Please excuse errors in solidworks drafter. May, Dietary surveillance and counseling (ICD-10 - [...] with the patient, and documenting clinical information. [facility]co Other 01-03-2024 Evaluation note* Encounter Date Diagnosis Assessment Notes Treatment Notes Treatment Clinical Notes May, Type 2 diabetes mellitus (ICD-10 - E11.9) [facility] Other 12-27-2023 History of Present illness Narrative* [...] polyneuropathy, with long-term current use of insulin ([facility]) Diabetic polyneuropathy associated with type 2 diabetes mellitus ([facility]) Chest pain Mixed hyperlipidemia Cigarette smoker Umbilical hernia Spondylopathy, unspecified Sciatica Lumbar post-laminectomy syndrome Lumbago with sciatica, right side Irritable bowel syndrome Internal derangement of left knee History of manic depressive disorder Hearing loss Posttraumatic stress disorder Generalized anxiety disorder Degenerative lumbar spinal stenosis Compulsive behavior Chronic maxillary sinusitis Chondromalacia patellae Bipolar disorder ([facility]) Bilateral sensorineural hearing loss Conductive hearing loss, bilateral Bilateral carpal tunnel syndrome Asthma Spondylolisthesis, acquired Arthritis of right knee Neurogenic bladder Obstructive sleep apnea syndrome Lightheadedness Syncope Allergies Allergen Reactions Calderón Anaphylaxis Penicillins Anaphylaxis [place] Hives Ibuprofen Hives and Vomiting Amoxicillin Duricef [Cefadroxil] Nsaids (Non-Steroidal Anti-Inflammatory Drug) [place] Dye Verapamil Dizziness Dilaudid [Hydromorphone] Hives Vicodin [...] meeting her. She normally follows at the [place] office. She is a 32-year-old with a history of a PFO. Hyperlipidemia. Src-mbnlaeo-akdqybiyy type 2 diabetic. Cigarette smoker. Asthma. Obesity. [...] other occurred after she finish shopping in [place], and was getting into the van. She [...] Anemia Anxiety Arrhythmia Asthma Bipolar 1 disorder ([facility]) Bipolar disorder, unspecified ([facility]) Cataract Chronic headache Chronic kidney disease kidney stone Chronic low back pain Dental disease edentulous Depression Diabetes mellitus type 2, controlled ([facility]) Fibromyalgia Folliculitis GERD (gastroesophageal reflux disease) Gestational diabetes mellitus (GDM) Hyperlipidemia Hypomagnesemia Moderate obstructive sleep apnea Neurogenic bladder Obesity Palpitations Paresthesia PFO (patent foramen ovale) PONV (postoperative nausea and vomiting) Prolonged emergence from general anesthesia Spinal stenosis Stroke ([facility]) Visual impairment glasses No data recorded No data recorded No data recorded Past Surgical History: Procedure Laterality Date BACK SURGERY N/A 07/10/2016 Performed by Sue Vásquez MD at [facility] OR SECTION 2006 CHOLECYSTECTOMY 2007 POSTERIOR LAMINECTOMY / DECOMPRESSION LUMBAR SPINE 08/2014 REPAIR CSF LEAK CRANIAL REPAIR CSF LEAK CRANIAL REPAIR HERNIA UMBILICAL N/A 02/27/2020 Performed by Micha Leon MD at [facility] RESECTION SUBMUCOSAL Bilateral 06/13/2018 Performed by Natali Shea MD at [facility] SEPTOPLASTY N/A 06/13/2018 Performed by Natali Shea MD at [facility] TONSILLECTOMY ADENOIDECTOMY Bilateral 06/13/2018 Performed by Natali [...] 0 min Stress: Stress Concern Present (04/02/2023) [place] [employer] Occupational Health - Occupational Stress Questionnaire Feeling of Stress : Rather much Social Connections: Moderately Isolated (04/02/2023) Social Connection and Isolation Panel [NHANES] Frequency of Communication with Friends and Family: More than three times a week Frequency of Social Gatherings with Friends and Family: More than three times a week Attends Gnosticist Services: More than 4 times per year [...] ROSEMARY Shelton 05/16/23 1634 documented [facility] encounterUniversity [facility] CenterBellstrike12-27-2023 Instructions* Patient Instructions* ROSEMARY Shelton - 05/16/2023 3:55 PM EST Risk factor modifications discussed: Low sodium or DASH diet Mediterranean diet Diabetic diet if indicated, and decrease carbohydrates Regular aerobic exercise for 30 minutes most days of the week discussed with pt Smoking cessation, or maintain smoking cessation Weight loss if indicated for BMI>30 LOW-SODIUM DIET The average Somali consumes about 1 -2 teaspoons of salt [...] oil as the primary source of fat. Josephine oil provides monounsaturated fat a type of [...] acid (a type of omega-3 fatty acid). [place]-3 fatty acids lower triglycerides. Fatty fish such [...] milk, fat-free yogurt and low-fat cheese. Reference: www.[employer].Webtab For more tips on the Mediterranean Diet see: http://www.[employer].com Mediterranean diet for hearthealth * Attachments The following attachments cannot be sent through Care Everywhere. * Quitting smoking (Syrian) [facility] [id number] NoteXR CHEST 2 VWS Clinical history: Preoperative evaluation, asthma. History of smoking. Comparisons: 12/05/2021 through 07/10/2022. Findings: 2 views of the chest obtained. Heart size and pulmonary vasculature appear within normal limits. Lungs appear clear. There is no pleural effusion nor pneumothorax. IMPRESSION: No evidence for acute cardiopulmonary disease. Finalized by Bret Barrios MD on 05/07/2023 3:47 [facility] 03-27-2023 Evaluation note* Encounter Date Diagnosis Assessment [...] voice recognition software. Please excuse errors in solidworks drafter. Mar, Dietary surveillance and counseling (ICD-10 - [...] Dew -Consider protein shake for breakfast or Malay yogurt with fruit -Patient with poor dentition [...] continue dose escalation of Trulicity PCP in [place] Mar, Dyslipidemia (ICD-10 - E78.5) Potential history [...] score of 4.0 Discussed results with patient pyco Other 06-22-2023 Evaluation note* Encounter Date Diagnosis [...] follow-up with behavioral health. [facility] given for [facility] and crisis line 326. [facility]co Other 05-31-2023 Evaluation note* Encounter Date Diagnosis [...] no improvement in 4 to 5 days pyco Other 05-11-2023 Evaluation note* Encounter Date Diagnosis [...] at the L3-L4. I reviewed the CT zrxk-gq-vekh with patient. Discussion of conservative therapy and [...] September, Screening for osteoporosis (ICD-10 - Z13.820) pyco Other 11-28-2022 Hospital Discharge instructions Patient Education [...] Follow these instructions at home: Medicines Take hbkc-sxb-lpqllvb and prescription medicines only as told by [...] or the blood stops without treatment. Take hggr-zrv-rjdagvy and prescription medicines only as told by your health care provider. Drink enough fluid to keep your urine clear or pale yellow. This information is not intended to replace advice given to you by your health care provider. Make sure you discuss any questions you have with your health care provider. Document Released: 05/07/2006 Document Revised: 10/01/2019 Document Reviewed: 06/09/2017 [employer] Patient Education 2020 myhomemove. Follow Up Care 10/11/2021 11:32:22 With:LYNDA CAMEJO, Constantino Payton, URYoly Address: [facility] [address] , [place] [address]- When: Unknown [facility] 10-25-2022 Hospital Discharge instructions* Discharge [...] through Care Everywhere. * Lightheadedness or Faintness (Syrian) documented in this encounterBON BANNER ESTRELLA MEDICAL CENTERMarseille Networks [facility] [employer] Work Phone: [phone] Evaluation note* Encounter Date Diagnosis Assessment Notes [...] patient set personal goal using given handout. pyco Other 09-01-2022 Evaluation note* Encounter Date Diagnosis Assessment Notes Treatment Notes Treatment Clinical Notes Jan, Diabetes type 2, uncontrolled (ICD-10 - E11.65) [facility] Other 08-31-2022 Evaluation note* Encounter Date Diagnosis [...] Dec, Metabolic syndrome X (ICD-10 - E88.81) [facility]co Other 07-19-2022 Evaluation note* Encounter Date Diagnosis [...] Nov, Obesity (BMI 30.0-34.9) (ICD-10 - E66.9) [facility]co Other 05-24-2022 Note [id number]:[address] [place] [address] 10-11-2021 Hospital Discharge instructions Patient Education 10/11/2021 [...] HOWELL Address: [facility] [address] [place] [address]- Business (1) When:04/13/2022 11:27:38 [facility]05-24-2022 NoteCustom Cystoscopy with Urethral Dilation ? Voiding [...] if you have a fever over 100 degreesJoint [facility]04-15-2022 Evaluation note* Encounter Date Diagnosis Assessment Notes Treatment Notes Treatment Clinical Notes Aug, Lumbar facet arthropathy (ICD-10 - M47.816) Aug, Lumbar post-laminectomy syndrome (ICD-10 - M96.1) Elective patient should be evaluated for possible dorsal column stimulator with our pain management physicians. A referral will be sent pyco Other 03-01-2022 Evaluation note* Encounter Date Diagnosis [...] left arm, subsequent encounter (ICD-10 - S46.912D) [facility] Other 12-08-2021 Evaluation note* Encounter Date Diagnosis Assessment Notes Treatment Notes Treatment Clinical Notes Apr, Lumbar facet arthropathy (ICD-10 - M47.816) [facility]co Other 11-24-2021 Evaluation note* Encounter Date Diagnosis [...] Thoracic spondylosis without myelopathy (ICD-10 - M47.814) pyco Other evaluation + Plan note Future Appointments Appointment Date:04/17/2022 01:30:00 PM Scheduled Provider:Constantino HOWELL MD Location:[facility] Appointment Type:URO Office Visit Diagnostic Tests Pending * [facility] Fish and Urine Cyto ([facility]) 10/11/21 [facility] noteNort [facility] Other evaluation noteNo InformationNort Zokem Other Evaluation note* Diagnosis Syncope and collapse- Primary Acute nonintractable headache, unspecified headache type Right groin pain Abdominal pain, right lower quadrant Nausea and vomiting, unspecified vomiting type Acute cystitis without hematuria Acute cystitis documented in this encounter [facility] Work Phone: evalscanuo noteNo assessment information [facility] Work Phone: Evaluation note* Diagnosis PFO (patent foramen ovale)- Primary Ostium secundum type atrial septal defect Mixed hyperlipidemia Cigarette smoker Tobacco use disorder Palpitations Lightheadedness Dizziness and giddiness Syncope, unspecified syncope type [facility] Diagnosis Type 2 diabetes mellitus with diabetic polyneuropathy, with long-term current use of insulin ([facility])- Primary Hyperglycemia Other abnormal glucose documented [facility]* Diagnosis Obstructive sleep apnea- Primary Obstructive sleep apnea (adult) (pediatric) Intolerance of continuous positive airway pressure (CPAP) ventilation Difficulty using continuous positive airway pressure (CPAP) full face mask History of claustrophobia Hot flashes Daytime sleepiness documented [facility]* Diagnosis Accelerated junctional rhythm- Primary Syncope, unspecified syncope type documented [facility]* Diagnosis Major depressive disorder, recurrent severe without psychotic features ([facility])- Primary Bipolar I disorder, single manic episode, severe, with psychosis ([facility]) Colitis Other and unspecified noninfectious gastroenteritis and colitis Elevated LFTs Other abnormal blood chemistry Degenerative lumbar spinal stenosis Spinal stenosis of lumbar region Type 2 diabetes mellitus with diabetic polyneuropathy, with long-term current use of insulin ([facility]) Accelerated junctional rhythm documented [facility]* Diagnosis Type 2 diabetes mellitus with diabetic polyneuropathy, with long-term current use of insulin ([facility])- Primary Hypokalemia Hypopotassemia Hypomagnesemia Disorders of magnesium metabolism Elevated LFTs Other abnormal blood chemistry Colitis Other and unspecified noninfectious gastroenteritis and colitis documented [facility]* Diagnosis Bipolar affective disorder, remission status unspecified ([facility])- Primary Major depressive disorder, recurrent severe without psychotic features ([facility]) documented in [facility]* Diagnosis Nausea and vomiting, [...] Diarrhea, unspecified type documented [facility]* Diagnosis Diarrhea, unspecified type- Primary documented in this encounter [facility] general Narrative - Reported* Type Description Date [...] issues Hospitalization History lumbar spinal surgery 2019 [place] [facility] Other History general Narrative - ReportedNort Zokem Other History general Narrative - Reported* Type [...] issues Hospitalization History lumbar spinal surgery 2019 pyco Other [facility] general Narrative - Reported* Type Description Date [...] issues Hospitalization History lumbar spinal surgery 2019 [facility] Other [facility] general Narrative - ReportedNoSwitchfly Other [facility] general Narrative - Reported* Type Description Date [...] issues Hospitalization History lumbar spinal surgery 2019 [facility] Other History general Narrative - Reported* Type [...] issues Hospitalization History lumbar spinal surgery 2019 [facility] Other Hospital course Narrative No data available for this section [facility] Additional Instructions Take the oxycodone every 6 hours as needed for pain Continue regular medication May do gentle stretching ice or warm moist heat whichever helps the best Follow-up with your doctor for recheck Return to the ER for worsening pain significant weakness in your legs significant loss of bladder bowel control high fever or any other concernsSt. [facility] Work Phone: InstructionsNot on filedocumented in [...] available for this section [facility] reason for visit Narrative* Consultation (Routine) - Pending Review Specialty Diagnoses / Procedures Referred By Gertrude t Referred To Contact Gastroenterology Diagnoses Esophageal dysphagia Colitis King Robles, DO [address], [place] [address] Vj Carreno S, DO [address], [address] [address] Referral ID Status Reason Start Date Expiration Date Visits Requested Visits Authorized [id number] Pending Review Specialty Services Required 07/10/2023 07/09/2024 1 1 [facility] System Summary Purpose Family History No Family [...] Chronic GERD Duodenitis Procedures EGD Tiffanie Molina APRN-CODING MACHINE OPERATOR [address] [address] Referral ID Status Reason Start Date Expiration Date V isits Requested Visits Authorized [id number] Pending Review 08/08/2023 08/07/2024 1 1 Specialty Diagnoses / Procedures Referred By Contac t Referred To Contact Diagnoses Generalized abdominal pain Abnormal CT of the abdomen Lower abdominal pain Diarrhea, unspecified type Procedures Colonoscopy Tiffanie Molina APRN-CODING MACHINE OPERATOR [address] [address] Referral ID Status Reason Start Date Expiration Date V isits Requested Visits Authorized [id number] Pending Review 08/08/2023 08/07/2024 1 1 Specialty Diagnoses / Procedures Referred By Contac t Referred To Contact King Robles, DO [address] [facility], [place] [address] Referral ID Status Reason Start Date Expiration Date V isits Requested Visits Authorized [id number] Pending Review 1 1 Specialty Diagnoses / Procedures Referred By Contac t Referred To Contact Diagnoses Accelerated junctional rhythm Syncope, unspecified syncope type Procedures Wireless Telemetry (In Office) Fiorella Sumner, CARETAKER RESORT-CODING MACHINE OPERATOR [address] [place] [address] Referral ID Status Reason Start Date Expiration Date V isits Requested Visits Authorized [id number] Pending Review 06/20/2023 06/19/2024 1 1 Specialty Diagnoses / Procedures Referred By Contac t Referred To Contact Diagnoses Obstructive sleep apnea Procedures Polysomnography 4 or more parameters with PAP titration Abby Berg MD [address], [address] [place] [address] Referral ID Status Reason Start Date Expiration Date V isits Requested Visits Authorized [id number] Pending Review 06/12/2023 06/11/2024 1 1 Specialty Diagnoses / Procedures Referred By Contac t Referred To Contact Diagnoses Syncope, unspecified syncope type Procedures Holter Monitor 14 Days (In Office) Fiorella Sumner APRN-CODING MACHINE OPERATOR [address] [place] [address] Referral ID Status Reason Start Date Expiration Date V isits Requested Visits Authorized [id number] Pending Review 05/16/2023 05/15/2024 1 1 Specialty Diagnoses / Procedures Referred By Contac t Referred To Contact Diagnoses Syncope, unspecified syncope type Procedures Holter monitor 3-5 days Fiorella Sumner APRN-CODING MACHINE OPERATOR [address] [place] [address] Referral ID Status Reason Start Date Expiration Date V isits Requested Visits Authorized [id number] Pending Review 05/16/2023 05/15/2024 1 1 Specialty Diagnoses / Procedures Referred By Contac t Referred To Contact Diagnoses Lightheadedness Syncope, unspecified syncope type Procedures Vas carotid duplex bilateral Fiorella Sumner APRN-CODING MACHINE OPERATOR [address] [place] [address] Referral ID Status Reason Start Date Expiration Date V isits Requested Visits Authorized [id number] Authorized 05/16/2023 05/15/2024 1 1 Specialty Diagnoses / Procedures Referred By Contac t Referred To Contact Diagnoses PFO (patent foramen ovale) Mixed hyperlipidemia Cigarette smoker Palpitations Syncope, unspecified syncope type Procedures Echo complete W/O contrast Fiorella Sumner APRN-CODING MACHINE OPERATOR [address] [place] [address] Referral ID Status Reason Start Date Expiration Date V isits Requested Visits Authorized [id number] Authorized 05/16/2023 05/15/2024 1 1 Specialty Diagnoses / Procedures Referred By Gertrude scott Referred To Contact Diagnoses PFO (patent foramen ovale) Palpitations Lightheadedness Procedures Wireless Telemetry (In Office) Fiorella Sumner, CARETAKER RESORT-CODING MACHINE OPERATOR [address] [place] [address] Referral ID Status Reason Start Date Expiration Date V isits Requested Visits Authorized [id number] Pending Review 05/16/2023 05/15/2024 1 1 Reason *FU 11/17 evaluate and treat - right hip pain Diagnosis 1 Right hip pain (M25. 551) Referral Organization [facility] Referring Provider First Name Pratima Referring Provider Last Name Liz Referring Provider Specialty Nurse Pract itioner Referred Organization [facility] Referred Provider Car Forbes Jr. Referred Address ,[place], [place],[address] Referred Provider Specialty Orthopedic S urgery Referral Priority Routine General Notes Lola Rosales 023 08:02:36 AM >Received today and referral was fax. They will review and call patient to schedule Clinical Notes Office [phone] Reason established patient - please add right Hip to treatment plan Diagnosis 1 Right hip pain (M25. 551) Referral Organization [facility] Referring Provider First Name Pratima Referring Provider Last Name Liz Referring Provider Specialty Nurse Pract itioner Referred Organization [facility] Referred Address [address], [place],[address] Referred Provider Specialty Physical The rapist Referral Priority Routine Reason aqua therapy- evalua te and treat Diagnosis 1 Lumbar post-laminect eulalio syndrome (M96.1) Referral Organization [facility] Referring Provider First Name Pratima Referring Provider Last Name Liz Referring Provider Specialty Nurse Pract itioner Referred Organization [facility] Referred Address [address], [place],[address] Referred Provider Specialty Physical The rapist Referral Priority Routine Reason evaluate and treat Diagnosis 1 Lumbar post-laminect eulalio syndrome (M96.1) Referral Organization [facility] Referring Provider First Name Pratima Referring Provider Last Name Liz Referring Provider Specialty Nurse Pract itioner Referred Organization [facility] Pain Managemen t Referred Provider Jone Greenfield Referred Address [address] [address] ,[place], [place],[address] Referred Provider Specialty Pain Medicin e Referral Priority Routine Reason *Waiting for appt Evaluate and Treat for Dorsal Column Stimulator Diagnosis 1 Lumbar facet arthrop athy (M47.816) Diagnosis 2 Postlaminectomy synd candy (M96.1) Diagnosis 3 Lumbar post-laminect eulalio syndrome (M96.1) Referral Organization [facility] Referring Provider First Name Saroj Referring Provider Last Name Wendy Referring Provider Specialty Neurosurger y Referred Organization [facility] Pain Managemen t Referred Provider Maurice Greenfieldif Referred Address [address] [address] ,[place], [place],[address] Referred Provider Specialty Pain Medicin e Referral Priority Routine General Notes Lisa Rosalesn M 022 11:02:23 AM >Received today and sent P2P Chief Complaint and Reason for Visit Chief Complaint back pain Chief Complaint back pain M96.1 Chief Complaint back pain M96.1 z13.820 m96.1 z13.820 Chief Complaint back pain M96.1 z13.820 m96.1 z13.820 M25.559 Chief Complaint z13.820 M25.559 Obesity R74.8 Additional Source Comments INFORMATION SOURCE (unrecogn ized section and content) DATE CREATED AUTHOR 11/08/2017 [facility] DATE CREATED AUTHOR AUTHOR'S ORGANIZ ATION 07/02/2020 [facility] DATE CREATED AUTHOR AUTHOR'S ORGANIZ ATION 11/03/2021 [facility] dical Specialist DATE CREATED AUTHOR AUTHOR'S ORGANIZ ATION 01/16/2022 [facility] DATE CREATED AUTHOR AUTHOR'S ORGANIZ ATION 03/14/2022 [facility] DATE CREATED AUTHOR AUTHOR'S ORGANIZ ATION 03/15/2022 [facility] DATE CREATED AUTHOR AUTHOR'S ORGANIZ ATION 03/24/2022 [facility] DATE CREATED AUTHOR AUTHOR'S ORGANIZ ATION 04/18/2022 [facility] DATE CREATED AUTHOR AUTHOR'S ORGANIZ ATION 10/22/2023 [facility] DATE CREATED AUTHOR AUTHOR'S ORGANIZ ATION 11/14/2023 [facility] DATE CREATED AUTHOR AUTHOR'S ORGANIZ ATION 12/10/2023 [facility] DATE CREATED AUTHOR AUTHOR'S ORGANIZ ATION 12/30/2023 [facility] dical Specialists EPIC DATE CREATED AUTHOR AUTHOR'S ORGANIZ ATION 01/02/2024 [facility] REASON FOR VISIT (unrecogniz ed section and [...] Member Role Status Dates Nawaf Mckoy APRN 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 Pratima Hill NP-C Attending Provider Active Team Status: Active Member Role Status Dates Nawaf Mckoy APRN 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 Rainer Barrera DO Attending Provider Active Team Status: Inactive Member Role Status Dates Rainer Barrera DO Attending Provider Active NON STAFF Primary Care Provider Active Team Status: Active Member Role Status Dates Nawaf Mckoy APRN 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 Team Status: Inactive Member Role Status Dates Nawaf Mckoy APRN 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 Cristel Allen , [facility]- Emergency Provider Active Frit Maker Relationship Specialty Start Date End Date King Robles DO [address] [place] [address] PCP - General Family Medicine 04/02/23 Frit Maker Relationship Specialty Start Date End Date King Robles DO [address], [place] [address] PCP - General Family Medicine 04/02/23 Frit Maker Relationship Specialty Start Date End Date King Robles DO [address] [place] [address] PCP - General Family Medicine 04/02/23 Frit Maker Relationship Specialty Start Date End Date King Robles DO [address] [place] [address] PCP - General Family Medicine 04/02/23 Frit Maker Relationship Specialty Start Date End Date King Robles DO [address] [place] [address] PCP - General Family Medicine 04/02/23 Frit Maker Relationship Specialty Start Date End Date King Robles DO [address] [place] [address] PCP - General Family Medicine 04/02/23 Frit Maker Relationship Specialty Start Date End Date King Robles DO [address] [place] [address] PCP - General Family Medicine 04/02/23 Frit Maker Relationship Specialty Start Date End Date King Robles DO [address] [place] [address] PCP - General Family Medicine 04/02/23 Frit Maker Relationship Specialty Start Date End Date King Robles DO [address] [place] [address] PCP - General Family Medicine 04/02/23 Frit Maker Relationship Specialty Start Date End Date King Robles DO [address] [place] [address] PCP - General Family Medicine 04/02/23 Frit Maker Relationship Specialty Start Date End Date King Robles DO [address] [place] [address] PCP - General Family Medicine 04/02/23 Frit Maker Relationship Specialty Start Date End Date King Robles DO [address] [place] [address] PCP - General Family Medicine 04/02/23 Frit Maker Relationship Specialty Start Date End Date SeaurelianoKing parra DO [address] [place] [address] PCP - General Family Medicine 04/02/23 Frit Maker Relationship Specialty Start Date End Date King Robles DO [address] [place] [address] PCP - General Family Medicine 04/02/23 Frit Maker Relationship Specialty Start Date End Date SeaurelianoKing parra DO [address] [place] [address] PCP - General Family Medicine 04/02/23 Frit Maker Relationship Specialty Start Date End Date SeaurelianoKing parra DO [address] [place] [address] PCP - General Family Medicine 04/02/23 Frit Maker Relationship Specialty Start Date End Date King Robles DO [address], [place] [address] PCP - General Family Medicine 04/02/23 Frit Maker Relationship Specialty Start Date End Date King Robles DO [address], [place] [address] PCP - General Family Medicine 04/02/23 Goals [...] BE BASED ON THE PRIMARY CLINICAL RECORDS. [employer] provides no warranty or guarantee of the accuracy or completeness of information in this document.
--- NOTE | 2024-01-05 17:15 | PM.HP ---
HPI H&P: HPI History of Present Illness Chief complaint: INTRACTABLE VOMITING, CYCLIC VOM SYN Narrative: 33-year-old female presented with intractable nausea, vomiting, generalized abdominal pain. She reports that she was admitted at [facility] about a week ago and was discharged after she felt a little bit better. She did okay for a couple of days but then her symptoms returned 2 days ago where she could not keep anything down and finally decided to come to ED for further evaluation. Patient reports that she uses a significant quantity of marijuana daily and that she has had similar episodes of intractable nausea, vomiting more or less every month where she required hospital admission. She is also on Mounjaro and upon further questioning it seems like there is a temporal association of her symptoms with Mounjaro. She did not have similar problems over a year ago and ever since she started Mounjaro this year, she has had persistent nausea with periods of worsening intractable nausea and vomiting, inability to keep anything down requiring hospital admission. During my evaluation, she was retching and had 2-3 episodes of previous vomiting. She reports feeling tired, worn out from persistent nausea and vomiting. Denies constipation, diarrhea. Opioid HPI Opioid Management Most Recent Pain and Opioid Data: Last Pain Scale 8 01/01/24 10:27 Last ED Pain Assessment 01/01/24 10:27 Review of Systems ROS Status of ROS 10 or more systems reviewed and unremarkable except as noted in history and below [facility] Medical History (Updated 01/05/24 @ 17:22 by Shaikh Jacquelin MD) JOHNNY (generalized anxiety disorder) ?F41.1 - Generalized anxiety disorder (ICD-10) Type 2 diabetes mellitus ?E11.9 - Type 2 diabetes mellitus without complications (ICD-10) Social History (Updated 01/05/24 @ 17:19 by Shaikh Jacquelin MD) Within the past year, how often did you have a drink containing alcohol: monthly or less Within the past year, how many standard drinks containing alcohol did you have on a typical day: 1 or 2 Within the past year, how often did you have six or more drinks on one occasion: never Total score: 0 Score interpretation: A score less than 3 is consistent with normal alcohol consumption. Smoking status: Current some day smoker Non-prescribed substance use: cannabis (any form) Meds Home Medications and Allergies Home Medications ?Medication ?Instructions ?Recorded ?Confirmed ?Type albuterol sulfate 90 mcg/actuation 2 puff inhalation Q6H PRN 01/01/24 01/05/24 History aerosol inhaler shortness of breath or wheezing aspirin 81 mg chewable tablet 81 mg PO DAILY 01/01/24 01/05/24 History atogepant 60 mg tablet (Qulipta) 60 mg PO DAILY 01/01/24 01/05/24 History baclofen 10 mg tablet 10 mg PO Q8H 01/01/24 01/05/24 History buspirone 30 mg tablet 30 mg PO BID 01/01/24 01/05/24 History cariprazine 1.5 mg capsule 3 mg PO Q24H 01/01/24 01/05/24 History (Jamal) cyanocobalamin (vitamin B-12) 1,000 mcg PO DAILY 01/01/24 01/05/24 History 1,000 mcg tablet dicyclomine 20 mg tablet 20 mg PO DAILY 01/01/24 01/05/24 History escitalopram oxalate 10 mg tablet 10 mg PO DAILY 01/01/24 01/05/24 History famotidine 20 mg tablet 20 mg PO Q12H 01/01/24 01/05/24 History ferrous sulfate 325 mg (65 mg 325 mg PO DAILY 01/01/24 01/05/24 History iron) tablet (FeroSul) flash glucose sensor (FreeStyle 01/01/24 01/01/24 History Otoniel 2 Sensor kit) fluticasone propionate 44 2 puff inhalation TID 01/01/24 01/05/24 History mcg/actuation HFA aerosol inhaler gabapentin 600 mg tablet 600 mg PO QID 01/01/24 01/05/24 History lamotrigine 100 mg tablet 100 mg PO DAILY 01/01/24 01/05/24 History lidocaine 5 % topical patch 1 patch transdermal ONCE 01/01/24 01/05/24 History magnesium oxide 400 mg (241.3 mg 400 mg PO DAILY 01/01/24 01/05/24 History magnesium) tablet metoclopramide HCl 5 mg tablet 5 mg PO QID 01/01/24 01/05/24 History montelukast 10 mg tablet 10 mg PO .QHS 01/01/24 01/05/24 History multivitamin with folic acid 400 1 tab PO QAM 01/01/24 01/05/24 History mcg tablet (Daily-Brigette (with folic acid)) prochlorperazine maleate 10 mg 10 mg PO Q6H PRN N/V 01/01/24 01/05/24 History tablet scopolamine base 1 mg over 3 days 1 patch transdermal Q3D 01/01/24 01/05/24 History transdermal patch (Transderm-Scop) tamsulosin 0.4 mg capsule 0.4 mg PO QAM 01/01/24 01/05/24 History tirzepatide 7.5 mg/0.5 mL 7.5 mg subcut QWEEK 01/01/24 01/05/24 History subcutaneous pen injector (Mounjaro) fenofibrate nanocrystallized 145 145 mg PO .QD 01/05/24 01/05/24 History mg tablet metoclopramide HCl 10 mg tablet 10 mg PO Q6H PRN nausea & vomiting 01/05/24 Rx (Reglan) 7 days #20 tabs omeprazole 40 mg capsule,delayed 40 mg PO BID 01/05/24 01/05/24 History release Allergies Allergy/AdvReac Type Severity Reaction Status Date / Time amoxicillin Allergy Severe Anaphylaxis Verified 01/05/24 13:14 hydromorphone [From Dilaudid] AdvReac Mild Hives Verified 01/05/24 13:14 ibuprofen AdvReac Mild Vomiting Verified 01/05/24 13:14 verapamil AdvReac Mild Unknown Verified 01/05/24 13:14 Exam Constitutional Vital Signs, click to edit/add: Last Vital Signs Temp 98.1 F 01/05/24 13:09 Pulse 108 H 01/05/24 16:48 Resp 18 01/05/24 15:20 BP 140/90 01/05/24 13:09 Pulse Ox 98 01/05/24 15:56 O2 Del Method Room Air 01/05/24 15:56 Documenting provider has reviewed patient's vital signs: yes Common normals: no apparent distress and oriented x3 General appearance: cooperative and ill appearing Other: appears dehydrated HENMT Common normals: normocephalic and head/scalp atraumatic Head and scalp: normocephalic and atraumatic Respiratory Common normals: normal respiratory effort and clear to auscultation bilaterally Effort & inspection: able to speak in complete sentences Auscultation: clear to auscultation bilaterally Cardio Common normals: regular rate, S1 normal heart sound and S2 normal heart sound Rate: regular rate Heart sounds: S1 normal and S2 normal GI Common normals: Normal to inspection, nondistended, normoactive bowel sounds present, soft to palpation and no hepatosplenomegaly Palpation: soft, tender (generalized) and no hepatosplenomegaly Extremity Common normals: no clubbing, cyanosis or edema Neuro Common normals: oriented x3, moves all extremities and no focal motor deficits Psych Common normals: mental status grossly normal, denies hallucinations, denies homicidal ideation and denies suicidal ideation Results Labs Labs: Short CBC 01/05/24 Range/Units 13:16 WBC 6.8 (4.0-11.0) 10^3/uL Hgb 13.8 (12.0-16.0) g/dL Hct 39.3 (36.0-48.0) % Plt Count 445 (150-450) 10^3/uL BMP 01/05/24 13:16 Sodium 134 L Potassium 2.9 L* Chloride 97 L Carbon Dioxide 26.5 BUN 6.0 L Creatinine 0.94 Glucose 178 H Calcium 9.5 Liver Function 01/05/24 Range/Units 13:16 Total Bilirubin 0.5 (0.2-1.0) mg/dL AST 38 H (15-37) U/L ALT 99 H (14-59) U/L Alkaline Phosphatase 79 (46-116) U/L Albumin 4.6 (3.4-5.0) g/dL Assessment and Plan Assessment and Plan (1) Cyclic vomiting syndrome: Assessment and Plan: Intractable nausea, vomiting likely secondary to cyclic vomiting syndrome/cannabis hyperemesis syndrome. It is also possible that her symptoms are because of Mounjaro since there seems to be a temporal association of her symptoms and Mounjaro. Advance diet as tolerated. Continue with supportive care including IV fluids, antiemetics. (2) Cannabis hyperemesis syndrome concurrent with and due to cannabis abuse: Assessment and Plan: Discussed and counseled on cannabis use. Her symptoms are likely multifactorial and secondary to cannabis hyperemesis syndrome/cyclic vomiting syndrome along with side effects of Mounjaro. (3) Nausea & vomiting: Assessment and Plan: Continue with supportive care. Continue with IV fluids and antiemetics. Qualifiers: Vomiting type: bilious vomiting Qualified Code(s): R11.14 - Bilious vomiting (4) Cannabis abuse: Assessment and Plan: Counseled on cannabis abuse. (5) Hypokalemia: Assessment and Plan: Likely from intractable nausea and vomiting. BMP at 10 PM. On IV potassium. Unable to take p.o. potassium due to nausea and vomiting (6) JOHNNY (generalized anxiety disorder): Assessment and Plan: Continue with home medications. Monitor closely. (7) Type 2 diabetes mellitus: Assessment and Plan: On Mounjaro as outpatient. She will likely need to discontinue Mounjaro due to GI side effects. We will defer this to her PCP. 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
[2024-01-05] MEDS: ONDANSETRON PF 4 MG/2 ML VIAL IV ×2 (17:57→21:39)
[2024-01-05] MEDS: FAMOTIDINE 20 MG TABLET PO (17:57)
[2024-01-05] MEDS: GABAPENTIN 300 MG CAPSULE 600 MG PO ×2 (17:58→21:16)
[2024-01-05] MEDS: 0.9 % SODIUM CHLORIDE 1,000 ML 125 ML IV (17:58)
[2024-01-05] MEDS: ENOXAPARIN SODIUM 40 MG/0.4 ML SYRINGE SUBQ (17:58)
[2024-01-05] MEDS: BACLOFEN 10 MG TABLET PO (21:16)
[2024-01-05] MEDS: MONTELUKAST SODIUM 10 MG TABLET PO (21:16)
[2024-01-05] MEDS: OMEPRAZOLE 40 MG CAPSULE.DR PO (21:16)
[2024-01-05] MEDS: BUSPIRONE HCL 15 MG TABLET 30 MG PO (21:16)
[2024-01-05] MEDS: LORAZEPAM 2 MG/ML VIAL 1 MG IV (21:38)
[2024-01-06] VITALS (12 sets, daily range): BP systolic 127–159; BP diastolic 86–107; PULSE 81–105; TEMP 36.8–37.2; O2SAT 95–99
[2024-01-06] MEDS: ONDANSETRON PF 4 MG/2 ML VIAL IV ×3 (02:08→13:15)
[2024-01-06] MEDS: LORAZEPAM 2 MG/ML VIAL 1 MG IV ×2 (02:08→05:31)
[2024-01-06] MEDS: 0.9 % SODIUM CHLORIDE 1,000 ML 125 ML IV ×2 (02:09→09:10)
[2024-01-06] MEDS: BACLOFEN 10 MG TABLET PO ×2 (05:29→13:15)
[2024-01-06] MEDS: GABAPENTIN 300 MG CAPSULE 600 MG PO ×2 (05:29→13:15)
[2024-01-06] MEDS: FAMOTIDINE 20 MG TABLET PO (05:29)
[2024-01-06 07:16] LABS: Basophils Percent Auto 0.4 % (0.2-2.0); Eosinophils Absolute Auto 0.1 10^3/uL (0.0-0.7); Eosinophils Percent Auto 0.8 % (0.9-7.0); Hematocrit 36.6 % (36.0-48.0); Hemoglobin 12.3 g/dL (12.0-16.0); Immature Granulocytes Abs Auto 0.03 10^3/uL (0.00-0.03); Immature Granulocytes Pct Auto 0.4 % (0.0-0.5); Lymphocytes Absolute Auto 2.6 10^3/uL (1.2-3.8); Lymphocytes Percent Auto 34.3 % (20.5-60.0); Mean Corpuscular HGB Conc 33.6 g/dL (29.9-35.2); Mean Corpuscular Hemoglobin 29.9 pg (26.7-34.0); Mean Corpuscular Volume 89.1 fL (81.0-99.0); Mean Platelet Volume 9.7 fL (9.5-13.5); Monocytes Absolute Auto 0.8 10^3/uL (0.3-0.8); Monocytes Percent Auto 10.2 % (1.7-12.0); Neutrophils Absolute Auto 4.1 10^3/uL (1.4-6.5); Neutrophils Percent Auto 53.9 % (43.0-75.0); Platelet Count 401 10^3/uL (150-450); Red Blood Count 4.11 10^6/uL (4.20-5.40); Red Cell Distribution Width 12.4 % (11.0-15.0); White Blood Count 7.7 10^3/uL (4.0-11.0)
[2024-01-06 08:13] LABS: Alanine Aminotransferase 74 U/L (14-59); Alkaline Phosphatase 62 U/L (46-116); Anion Gap 12.1; Aspartate Amino Transferase 28 U/L (15-37); BUN Creatinine Ratio 6.1; Bilirubin Total 0.4 mg/dL (0.2-1.0); Calcium 8.9 mg/dL (8.5-10.1); Carbon Dioxide 26.8 mmol/L (21.0-32.0); Chloride 104 mmol/L (98-107); Estimated GFR (African America >60 (>=60); Estimated GFR (Non-African Ame >60 (>=60); Glucose 122 mg/dL (74-106); Sodium 140 mmol/L (136-145)
[2024-01-06 08:14] LABS: Albumin Globulin Ratio 1.3; Albumin Level 3.9 g/dL (3.4-5.0); Globulin 3.1 g/dL
[2024-01-06] MEDS: ASPIRIN 81 MG TAB.CHEW PO (09:03)
[2024-01-06] MEDS: BUSPIRONE HCL 15 MG TABLET 30 MG PO (09:03)
[2024-01-06] MEDS: MULTIVITAMIN TABLET 1 TAB PO (09:03)
[2024-01-06] MEDS: FERROUS SULFATE 325 MG TABLET PO (09:03)
[2024-01-06] MEDS: DICYCLOMINE HCL 10 MG CAPSULE 20 MG PO (09:03)
[2024-01-06] MEDS: OMEPRAZOLE 40 MG CAPSULE.DR PO (09:03)
[2024-01-06] MEDS: MAGNESIUM OXIDE 400 MG TABLET PO (09:03)
[2024-01-06] MEDS: FENOFIBRATE 54 MG TABLET 162 MG PO (09:03)
[2024-01-06] MEDS: ESCITALOPRAM 10 MG TABLET PO (09:03)
[2024-01-06] MEDS: LAMOTRIGINE 100 MG TABLET PO (09:03)
[2024-01-06 09:06] LABS: Potassium 2.9 mmol/L (3.5-5.1)
[2024-01-06] MEDS: POTASSIUM CHLORIDE 40 MEQ in 0.9 % SODIUM CHLORIDE 250 ML 67.5 MEQ IV (10:00)
[2024-01-06] MEDS: POTASSIUM CHLORIDE 10 MEQ ER TABLET 40 MEQ PO (10:00)
[2024-01-06] MEDS: BUDESONIDE 0.5 MG/2 ML AMPULE NEB IH (10:21)
[2024-01-06] MEDS: ALBUTEROL SULFATE 2.5 MG/3 ML VIAL NEB IH (10:21)
[2024-01-06 12:39] LABS: Anion Gap 10.7; BUN Creatinine Ratio 5.6; Calcium 8.8 mg/dL (8.5-10.1); Carbon Dioxide 26.7 mmol/L (21.0-32.0); Chloride 104 mmol/L (98-107); Estimated GFR (African America >60 (>=60); Estimated GFR (Non-African Ame >60 (>=60); Glucose 110 mg/dL (74-106); Potassium 3.4 mmol/L (3.5-5.1); Sodium 138 mmol/L (136-145)
--- NOTE | 2024-01-06 13:49 | P.DS_ITS ---
DS: Providers Provider Date of admission: 01/05/24 15:05 Primary care physician: NAWAF MCKOY Admitting clinician: Shaikh Jacquelin Attending physician on admission: Shaikh Jacquelin Attending physician on discharge: Shaikh Jacquelin Discharging clinician: Shaikh Jacquelin Anticipated date of discharge: 01/06/24 DS: Diagnosis Discharge Diagnosis (1) Cyclic vomiting syndrome: Assessment and plan: Still nauseous but not vomiting now. Tolerating clear liquid diet. Stable for discharge on oral zofran as needed (2) Cannabis hyperemesis syndrome concurrent with and due to cannabis abuse: Assessment and plan: Tolerating PO diet now. Stable for discharge. (3) Nausea & vomiting: Assessment and plan: Still nauseous but tolerating PO diet now. Qualifiers: Vomiting type: bilious vomiting Qualified Code(s): R11.14 - Bilious vomiting (4) Cannabis abuse: Assessment and plan: Counseled and educated on cannabis use. (5) Hypokalemia: Assessment and plan: Improved. Encouraged to increase potassium intake in diet. (6) JOHNNY (generalized anxiety disorder): Assessment and plan: C/w home medications (7) Type 2 diabetes mellitus: Assessment and plan: D/c galeunted. 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 She was treated with IV zofran as needed and gradually advanced her diet. She is feeling better today but still nauseous. Hypokalemia treated with IV and PO potassium. Medically stable for discharge as tolerating PO diet now. F/u with PCP in one week Status at Discharge Functional status at discharge: independent ambulation Overall status at discharge: patient is back to baseline Time Spent with Patient Time attestation: Total time spent providing and/or coordinating discharge services: Time spent: greater than 30 minutes Exam Constitutional Vital Signs, click to edit/add: Last Vital Signs Temp 99.0 F 01/06/24 13:19 Pulse 87 01/06/24 13:19 Resp 18 01/06/24 13:19 BP 127/86 01/06/24 13:19 Pulse Ox 99 01/06/24 13:19 O2 Del Method Room Air 01/06/24 13:19 Documenting provider has reviewed patient's vital signs: yes Common normals: no apparent distress and oriented x3 General appearance: cooperative HENMT Common normals: normocephalic and head/scalp atraumatic Head and scalp: normocephalic and atraumatic Respiratory Common normals: normal respiratory effort and clear to auscultation bilaterally Effort & inspection: able to speak in complete sentences Auscultation: clear to auscultation bilaterally Cardio Common normals: regular rate, S1 normal heart sound and S2 normal heart sound Rate: regular rate Heart sounds: S1 normal and S2 normal GI Common normals: Normal to inspection, nondistended, normoactive bowel sounds present, soft to palpation and no hepatosplenomegaly Palpation: soft and no hepatosplenomegaly Neuro Common normals: oriented x3, moves all extremities and no focal motor deficits Psych Common normals: mental status grossly normal, denies hallucinations, denies homicidal ideation and denies suicidal ideation DS: Data Data Completed and Pending Labs on day of discharge: Labs from last 24 hours 01/06/24 01/06/24 01/05/24 12:24 06:11 13:16 WBC 7.7 RBC 4.11 L Hgb 12.3 Hct 36.6 MCV 89.1 MCH 29.9 MCHC 33.6 RDW 12.4 Plt Count 401 MPV 9.7 Neut % (Auto) 53.9 Lymph % (Auto) 34.3 [place] % (Auto) 10.2 Eos % (Auto) 0.8 L Baso % (Auto) 0.4 Neut # (Auto) 4.1 Lymph # (Auto) 2.6 [place] # (Auto) 0.8 Eos # (Auto) 0.1 Baso # (Auto) 0.0 Abs Immat Gran (auto) 0.03 Imm/Tot Granulo (auto) 0.4 Sodium 138 140 134 L Potassium 3.4 L 2.9 L* 2.9 L* Chloride 104 104 97 L Carbon Dioxide 26.7 26.8 26.5 Anion Gap 10.7 12.1 13.4 BUN 5.0 L 5.0 L 6.0 L Creatinine 0.90 0.82 0.94 Est GFR ( Amer) >60 >60 >60 Est GFR (Non-Af Amer) >60 >60 >60 BUN/Creatinine Ratio 5.6 6.1 6.4 Glucose 110 H 122 H 178 H Calcium 8.8 8.9 9.5 Total Bilirubin 0.4 0.5 AST 28 38 H ALT 74 H 99 H Alkaline Phosphatase 62 79 Total Protein 7.0 8.3 H Albumin 3.9 4.6 Globulin 3.1 3.7 Albumin/Globulin Ratio 1.3 1.2 Lipase 29.0 Discharge Plan Discharge Disposition: Home, Self-Care Discharge Medications: New metoclopramide HCl [Reglan] 10 mg tablet 10 mg PO Q6H PRN (Reason: nausea & vomiting) 7 Days Qty: 20 0RF Continued albuterol sulfate 90 mcg/actuation HFA aerosol inhaler 2 puff INHALATION Q6H PRN (Reason: shortness of breath or wheezing) aspirin 81 mg tablet,chewable 81 mg PO DAILY baclofen 10 mg tablet 10 mg PO Q8H buspirone 30 mg tablet 30 mg PO BID Vraylar 1.5 mg capsule 3 mg PO Q24H cyanocobalamin (vitamin B-12) 1,000 mcg tablet 1,000 mcg PO DAILY dicyclomine 20 mg tablet 20 mg PO DAILY escitalopram oxalate 10 mg tablet 10 mg PO DAILY famotidine 20 mg tablet 20 mg PO Q12H ferrous sulfate [FeroSul] 325 mg (65 mg iron) tablet 325 mg PO DAILY fluticasone propionate 44 mcg/actuation HFA aerosol inhaler 2 puff INHALATION TID (DME) FreeStyle Otoniel 2 Sensor Kit See Rx Instructions .ROUTE Rx Instructions: As directed gabapentin 600 mg tablet 600 mg PO QID magnesium oxide 400 mg (241.3 mg magnesium) tablet 400 mg PO DAILY Rx Instructions: 1 tab/morning metoclopramide HCl 5 mg tablet 5 mg PO QID lidocaine 5 % adhesive patch,medicated 1 patch transdermal ONCE Rx Instructions: 1 PATCH TO AFFECTED AREA Q24 Hours montelukast 10 mg tablet 10 mg PO .QHS lamotrigine 100 mg tablet 100 mg PO DAILY multivitamin with folic acid [Daily-Brigette (with folic acid)] 400 mcg tablet 1 tab PO QAM prochlorperazine maleate 10 mg tablet 10 mg PO Q6H PRN (Reason: N/V) Qulipta 60 mg tablet 60 mg PO DAILY scopolamine base [Transderm-Scop] 1 mg over 3 days patch 3 day 1 patch transdermal Q3D tamsulosin 0.4 mg capsule 0.4 mg PO QAM fenofibrate nanocrystallized 145 mg tablet 145 mg PO .QD omeprazole 40 mg capsule,delayed release(DR/EC) 40 mg PO BID Discontinued Mounjaro 7.5 mg/0.5 mL pen injector 7.5 mg subcut QWEEK Activity: increase activity as tolerated Diet: advance to your usual diet Print Language: Omani Forms: Portal Instructions Follow Up Appointments: pcp in one week
--- NOTE | 2024-01-07 14:43 | CM.DCFOLLOWU ---
Person spoke with: patient How are you feeling? well How is your pain? none Did you understand your discharge instructions? yes Do you have any questions about your discharge instructions? no Were you given any prescriptions at discharge? yes Were you able to get your prescriptions filled? picking it up today Do you understand how to take your medications as ordered? yes Do you have any questions about your follow up appointment and do you plan to keep your follow up appointment? no questions, had to call and reschedule follow up Is there anything else that you would like to discuss? no Questions/Comments/Concerns/Other: none
== END 2024-01-06 14:50 | disposition home or self-care (01) ==
LOC: ER 14:46 → MS 15:09
PROVIDERS: Admitting Provider Internal Medicine; Emergency Provider Emergency Medicine; Visit Provider Internal Medicine
DX: R11.15 Cyclical vomiting syndrome unrelated to migraine (principal); R11.14 Bilious vomiting; F12.10 Cannabis abuse, uncomplicated; E87.6 Hypokalemia; F41.1 Generalized anxiety disorder; E11.9 Type 2 diabetes mellitus without complications; Z79.899 Other long term (current) drug therapy; F17.200 Nicotine dependence, unspecified, uncomplicated
CPT/HCPCS: 36415; 80048; 80053; 83690; 85025; 94640; 94761; 96361; 96365; 96366; 96372; 96375; 96376; 99285; G0378; J1630; J1650; J2060; J2405; J2765; J3480